=== PATIENT | female | born 1945 | race Caucasian/White ===

== ENCOUNTER → 2017-12-31 | Outpatient (CLI) | payer MEDICARE ==
--- NOTE | 2017-12-31 11:09 | MR ---
EXAMINATION TYPE: MR lumbar spine wo con DATE OF EXAM: 12/31/2017 COMPARISON: Plain film January 28, 2012 HISTORY: LBP TECHNIQUE: Multiplanar, multisequence images of the lumbar spine were acquired. L1-L2: Normal disc appearance without desiccation. No herniation, protrusion or disc bulging. No ca nal stenosis is present. Foramina are patent bilaterally. L2-L3: Broad-based posterior disc bulge causes mild anterior mass effect on the thecal sac. There is some facet arthropathy with hypertrophy of ligamentum flavum encroaching on the lateral recesses. No significant central canal stenosis or foraminal encroachment. L3-L4: Listhesis contributes to cause bilateral foraminal encroachment. Facet arthropathy with hypert rophy ligamentum flavum encroaches on the lateral recesses and results in a trefoil thecal sac, moder ate central canal stenosis. Small central posterior disc herniation causes slight deformity of the an terior thecal sac. L4-L5: Postop change noted, there is facet arthropathy, hypertrophic change causes some minimal poste rior impression on the thecal sac, there is no significant central canal stenosis or sizable disc her niation. Listhesis contributes to cause bilateral foraminal encroachment. Laminectomies have been per formed. L5-S1: Facet arthropathy changes present. No significant central canal stenosis or foraminal encroach ment, no sizable disc herniation. No paraspinal masses are identified. Conus medullaris has a normal appearance. Spinal curvature is a gain noted. Anterolisthesis grade 1 L3-4, L4-5 noted as on plain film. Loss of disc height and signal is present at these levels with associated spondylosis, endplate discogenic marrow signal change com patible with disc desiccation and degenerative disc disease. Posterior midline scar noted at the lowe r lumbar spine level. Tarlov cysts are noted over the sacral region. Cystic focus is associated with the right kidney measuring 3.2 cm at the lower pole with additional smaller cystic foci noted, exophy tic cystic focus in the midpole the left kidney measures 8 mm laterally. Lap band is incidentally not ed. IMPRESSION: Degenerative disc disease, postop changes, facet arthropathy, spinal stenosis greatest at L3-4 contri buted by listhesis. Scoliosis. Cystic foci associated with the kidneys. Additional findings above.
== END | disposition home or self-care (01) ==
LOC: RADMRIMAIN 09:16
PROVIDERS: ATTEND Family Medicine
DX: M48.061 Spinal stenosis, lumbar region without neurogenic claudication (principal); M43.16 Spondylolisthesis, lumbar region; M51.26 Other intervertebral disc displacement, lumbar region; M51.36 Other intervertebral disc degeneration, lumbar region; M46.96 Unspecified inflammatory spondylopathy, lumbar region; M47.816 Spondylosis without myelopathy or radiculopathy, lumbar region; M41.86 Other forms of scoliosis, lumbar region; M24.28 Disorder of ligament, vertebrae; Z98.890 Other specified postprocedural states
CPT/HCPCS: 72148

== ENCOUNTER → 2018-02-08 | Outpatient (CLI) | payer MEDICARE | LOC: BARWHC3 14:24 | PROVIDERS: ATTEND Surgery | DX: Z53.9 Procedure and treatment not carried out, unspecified reason (principal) ==

== ENCOUNTER → 2018-02-15 | Outpatient (CLI) | payer MEDICARE ==
[2018-02-15 14:27] VITALS: BP 139/82; PULSE 60; RESP 16; TEMP 97.6; BMI 25.6
--- NOTE | 2018-02-15 15:18 | P.HPBAR ---
Bariatric H&P - History & Physicial H&P Date: 02/15/18 History & Physicial: Visit/CC: band adj Patient initial contact: Initial weight: 59.562 kg Initial weight in pounds: 131.31 Height: 5 ft Initial BMI: 25.6 Last weight: Current weight: 59.562 kg Current weight in pounds: 131.31 Current BMI: 25.6 [place] body weight (based on NIH guidelines): 45.359 kg Excess body weight loss: 0.0% The patient is a 72 year-old F who presents for Bariatric Assessment. Patient presents today for lab band follow. She's had some trouble with dysphagia and vomiting. She is maintained approximately 130 pound weight loss over the last 17 years. Past Medical History Past Medical History: Diabetes Mellitus, Hyperlipidemia, Hypertension, Thyroid Disorder Additional Past Medical History / Comment(s): Type 2 DM (resolved), Hypothyroidism, IBS History of Any Multi-Drug Resistant Organisms: None Reported Past Surgical History: Appendectomy, Bariatric Surgery, Cholecystectomy, Tonsillectomy, Tubal Ligation Additional Past Surgical History / Comment(s): lap band placed 2000(??) Past Anesthesia/Blood Transfusion Reactions: No Reported Reaction Additional Past Anesthesia/Blood Transfusion Reaction / Comm: No blood transfusion to date Past Psychological History: Anxiety, Depression Smoking Status: Current every day smoker Past Alcohol Use History: None Reported Past Drug Use History: None Reported Additional Drug Use History / Comment(s): 1/2 pack /day x 60 years (off and on) Surgical - Exam Vital Signs Temp Pulse Resp BP 97.6 F 60 16 139/82 02/15/18 14:22 02/15/18 14:22 02/15/18 14:22 02/15/18 14:22 - General well developed, well nourished, no distress - Eyes PERRL - Respiratory normal expansion - Cardiovascular Rhythm: regular - Abdomen Incisional hernia related to open cholecystectomy scar in the right upper quadrant Abdomen: soft, non tender Bariatric Assessment & Plan Plan: Dysphagia. Patient had her LAP-BAND empty she had 2 mL remove her band. She' ll follow-up in one month. Bariatric Checklist Checklist: Plan: Checklist: EGD: 1. Hiatal hernia: 2. H. Pylori: HgbA1c: Vitamin D: Smoking: Current every day smoker Primary care physician referral: Psychiatry clearance: Cardiology clearance: Sleep study: Diet journal: VTE risk score: VTE risk level: Rehab needs at discharge:
== END | disposition home or self-care (01) ==
LOC: BARWHC3 13:19
PROVIDERS: ATTEND Surgery
DX: Z48.815 Encounter for surgical aftercare following surgery on the digestive system (principal); F17.200 Nicotine dependence, unspecified, uncomplicated; Z90.89 Acquired absence of other organs; Z90.49 Acquired absence of other specified parts of digestive tract; Z98.84 Bariatric surgery status
CPT/HCPCS: 99202

== ENCOUNTER → 2018-03-01 | Outpatient (CLI) | payer MEDICARE ==
[2018-03-01 14:27] VITALS: BP 148/71; PULSE 64; RESP 16; TEMP 97.9; BMI 26.4
--- NOTE | 2018-03-01 14:32 | P.HPBAR ---
Bariatric H&P - History & Physicial H&P Date: 03/01/18 History & Physicial: Visit/CC: band follow-up Patient initial contact: Initial weight: 59.562 kg Initial weight in pounds: 131.31 Height: 5 ft Initial BMI: 25.6 Last weight: Current weight: 61.433 kg Current weight in pounds: 135.44 Current BMI: 26.4 [place] body weight (based on NIH guidelines): 45.359 kg Excess body weight loss: The patient is a 72 year-old F who presents for Bariatric Assessment. Patient presents today for lap band follow-up. She had her LAP-BAND empty at the last visit. She states her GERD and dysphagia symptoms are significantly improved. Past Medical History Past Medical History: Diabetes Mellitus, Hyperlipidemia, Hypertension, Thyroid Disorder Additional Past Medical History / Comment(s): Type 2 DM (resolved), Hypothyroidism, IBS History of Any Multi-Drug Resistant Organisms: None Reported Past Surgical History: Appendectomy, Bariatric Surgery, Cholecystectomy, Tonsillectomy, Tubal Ligation Additional Past Surgical History / Comment(s): lap band placed 2000(??) Past Anesthesia/Blood Transfusion Reactions: No Reported Reaction Additional Past Anesthesia/Blood Transfusion Reaction / Comm: No blood transfusion to date Smoking Status: Current every day smoker Surgical - Exam Vital Signs Temp Pulse Resp BP 97.9 F 64 16 148/71 03/01/18 14:25 03/01/18 14:25 03/01/18 14:25 03/01/18 14:25 - General well developed, no distress - Abdomen Abdomen: soft, non tender Bariatric Assessment & Plan Plan: The patient will follow-up in one month. Her GERD is improved. We will not fill her LAP-BAND this visit. She is scheduled to have a ventral hernia repaired next month. She'll follow-up after her hernia repair. Bariatric Checklist Checklist: Plan: Checklist: EGD: 1. Hiatal hernia: 2. H. Pylori: HgbA1c: Vitamin D: Smoking: Current every day smoker Primary care physician referral: Psychiatry clearance: Cardiology clearance: Sleep study: Diet journal: VTE risk score: VTE risk level: Rehab needs at discharge:
== END | disposition home or self-care (01) ==
LOC: BARWHC3 13:18
PROVIDERS: ATTEND Surgery
DX: Z48.815 Encounter for surgical aftercare following surgery on the digestive system (principal); F17.200 Nicotine dependence, unspecified, uncomplicated; K21.9 Gastro-esophageal reflux disease without esophagitis; Z98.84 Bariatric surgery status
CPT/HCPCS: 99211

== ENCOUNTER → 2018-03-11 | Outpatient (CLI) | payer MEDICARE ==
[2018-03-11 10:49] LABS: Basophils # (A) 0.1 k/uL (0-0.2); Basophils % (A) 1 %; Eosinophils % (A) 1 %; HCT 39.8 % (34.0-46.0); HGB 12.6 gm/dL (11.4-16.0); Lymphocytes # (A) 2.1 k/uL (1.0-4.8); Lymphocytes % (A) 32 %; MCH 30.4 pg (25.0-35.0); MCHC 31.7 g/dL (31.0-37.0); MCV 95.8 fL (80.0-100.0); Mean Platelet Volume 6.7; Monocytes # (A) 0.5 k/uL (0-1.0); Monocytes % (A) 8 %; Neutrophils # (A) 3.8 k/uL (1.3-7.7); Neutrophils % (A) 58 %; Platelet Count 249 k/uL (150-450); RBC 4.16 m/uL (3.80-5.40); RDW 14.3 % (11.5-15.5); WBC 6.6 k/uL (3.8-10.6)
== END | disposition home or self-care (01) ==
LOC: LABPAT 10:03
PROVIDERS: ATTEND Surgery
DX: Z01.818 Encounter for other preprocedural examination (principal); Z01.812 Encounter for preprocedural laboratory examination; K43.2 Incisional hernia without obstruction or gangrene; D64.9 Anemia, unspecified; F17.200 Nicotine dependence, unspecified, uncomplicated
CPT/HCPCS: 85025; 86850; 86900; 86901; 93005

== ENCOUNTER 2018-03-17 06:46 | Day surgery (SDC) | payer MEDICARE ==
[2018-03-11 14:21] VITALS: BMI 23.8
[~2018-03-17 06:46] MED LIST: DEXAMETHASONE SOD PHOSPHATE 10 MG/ML 1 ML VIAL IV ONE; HEPARIN SODIUM,PORCINE 5,000 UNIT/ML 1 ML VIAL SQ ONE; LACTATED RINGERS 1,000 ML IV SCH; MIDAZOLAM 2 MG/2 ML VIAL IV PRN; ONDANSETRON 4 MG/2 ML VIAL IVP ONE; ceFAZolin IN SWFI 2 GM/20 ML SYRINGE IVP ONE; fentaNYL (PF) 50 MCG/ML 2 ML AMP IV PRN
[2018-03-17] MEDS ORDERED: LIDOCAINE 1% 20 ML VIAL (10MG/ML) FOR IV START INTRADERMA ONE (07:28)
[2018-03-17 07:29] VITALS: RESP 16
[2018-03-17] MEDS ORDERED: BUPIVACAINE (PF) 0.5% 30 ML VIAL SQ ONE ×3 (07:41→08:34)
--- NOTE | 2018-03-17 08:04 | P.GSHP ---
History of Present Illness H&P Date: 03/17/18 Chief Complaint: Incisional hernia This is a 72-year-old female who presents today for laparoscopic robotic- assisted repair of incisional hernia. Patient developed an incisional hernia located at her previous open cholecystectomy scar. She also has a questionable incisional hernia at her LAP-BAND port site. Past Medical History Past Medical History: Diabetes Mellitus, Hyperlipidemia, Hypertension, Memory Impairment, Musculoskeletal Disorder, Thyroid Disorder Additional Past Medical History / Comment(s): Type 2 DM (resolved), Hypothyroidism, IBSD, urinary incontinence History of Any Multi-Drug Resistant Organisms: None Reported Past Surgical History: Appendectomy, Bariatric Surgery, Cholecystectomy, Tonsillectomy, Tubal Ligation Additional Past Surgical History / Comment(s): lap band placed approx. 2000, cervical fusion, synovial cyst removed from spine Past Anesthesia/Blood Transfusion Reactions: No Reported Reaction Additional Past Anesthesia/Blood Transfusion Reaction / Comment(s): No blood transfusion to date Smoking Status: Current every day smoker - Past Family History Father Family Medical History: Cancer Medications and Allergies Home Medications Medication Instructions Recorded Confirmed Type Aspirin EC [Ecotrin] 325 mg PO DAILY 07/28/16 03/17/18 History Dicyclomine [Bentyl] 10 mg PO TID 02/16/18 03/17/18 History FLUoxetine HCL [Sarafem] 60 mg PO DAILY 02/16/18 03/17/18 History HYDROcodone/APAP 7.5-325MG [[place] 7.5 mg PO QID 02/16/18 03/17/18 History 7.5-325] Levothyroxine Sodium [Synthroid] 25 mcg PO DAILY 02/16/18 03/17/18 History Loratadine [Claritin] 10 mg PO DAILY 02/16/18 03/17/18 History Losartan Potassium [Cozaar] 50 mg PO DAILY 02/16/18 03/17/18 History Memantine [Namenda] 10 mg PO DAILY 02/16/18 03/17/18 History OLANZapine [ZyPREXA] 10 mg PO DAILY 02/16/18 03/17/18 History Pravastatin Sodium [Pravachol] 40 mg PO HS 02/16/18 03/17/18 History busPIRone HCl [Buspar] 5 mg PO DAILY 02/16/18 03/17/18 History cloNIDine HCL [Catapres] 0.1 mg PO DAILY 02/16/18 03/17/18 History Potassium Chloride [Klor-Con 10] 10 meq PO BID 03/11/18 03/17/18 History Allergies Allergy/AdvReac Type Severity Reaction Status Date / Time No Known Allergies Allergy Verified 03/17/18 07:10 Surgical - Exam Vital Signs Temp Pulse Resp BP Pulse Ox 97.5 F L 62 16 180/83 96 03/17/18 07:22 03/17/18 07:22 03/17/18 07:22 03/17/18 07:22 03/17/18 07:22 - General well developed, no distress - Eyes PERRL - ENT normal pinna - Neck no masses - Respiratory normal expansion - Cardiovascular Rhythm: regular - Abdomen Abdomen: soft, non tender Hernia: incisional (5 cm incision hernia located at the right subcostal incision , a small incisional hernia at the LAP-BAND port site) Assessment and Plan Assessment: Incisional hernia. We'll perform laparoscopic robotic-assisted repair.
[2018-03-17] MEDS ORDERED: fentaNYL (PF) 50 MCG/ML 2 ML AMP ONE (08:06)
[2018-03-17] MEDS ORDERED: GLYCOPYRROLATE 0.2 MG/ML 2 ML VIAL ONE (08:06)
[2018-03-17] MEDS ORDERED: NEOSTIGMINE 1 MG/ML 10 ML VIAL ONE (08:06)
[2018-03-17] MEDS ORDERED: MIDAZOLAM 2 MG/2 ML VIAL ONE (08:06)
[2018-03-17] MEDS ORDERED: SUCCINYLCHOLINE CHLORIDE 100 MG/5 ML SYR IV ONE (08:06)
[2018-03-17] MEDS ORDERED: LIDOCAINE 1% INJ 10MG/ML (20 ML MDV) ONE (08:06)
[2018-03-17] MEDS ORDERED: ROCURONIUM BROMIDE 10 MG/ML 10 ML VIAL IV ONE (08:06)
[2018-03-17] MEDS ORDERED: PROPOFOL 10 MG/ML 20 ML VIAL IV ONE (08:06)
[2018-03-17 10:05] VITALS: TEMP 97
[2018-03-17] MEDS: HYDROmorphone 1 MG/ML 1 ML SYRINGE IVP ONE ×4 (10:10→10:58)
--- NOTE | 2018-03-17 10:16 | P.OP ---
Date of Procedure: 03/17/18 Preoperative Diagnosis: Incisional hernia Postoperative Diagnosis: Adhesions Incisional hernia Incarcerated incisional hernia Procedure(s) Performed: Laparoscopic lysis of adhesions Laparoscopic robotic system repair of incisional hernia Laparoscopic robotic-assisted repair of incarcerated incisional hernia Partial omentectomy Anesthesia: GETA Pathology: other (Incarcerated omentum) Condition: stable Disposition: PACU Description of Procedure: The patient was placed on the operating table in the supine position. He received general anesthesia. His abdomen was prepped and draped usual fashion. Using a 5 mm optical trocar under direct visualization the peritoneal cavity was entered in the infraumbilical position.. The abdomen was then insufflated. The laparoscope was placed back into the perineal cavity. Next a 8 mm robotic trocar was placed in the left lower quadrant and a 12 mm robotic trocar was placed in the midline infraumbilical position. Another 8 mm trocar was placed in the right lateral position.. The incisional hernia was visualized. This hernias located in the right subcostal position. The patient had another incarcerated hernia located in the left lateral abdominal wall related to her LAP-BAND port site. Using hook cautery the adhesions in the right upper quadrant hernia were lysed. Using hook cautery the peritoneum over the incisional hernia was excised. The fascial opening was repaired using 0V LOC suture. Next a piece of 11 cm round ventral light ST mesh was placed into the. Cavity and secured with 2 OV lock suture. Next, the incarcerated omentum was withdrawn from the left lateral incarcerated incisional hernia. The neck of the hernia was slightly opened using hook cautery. And the incarcerated omentum was withdrawn. The fascial defect was then closed using oh strata fixed suture. The patient was undocked the robot. The needles were retrieved. The incarcerated omentum was withdrawn. The fascia of the 12 mm trocar site was closed with 0 Ethibond suture. Skin was closed interrupted 3-0 Monocryl suture. Dermabond dressings was applied. Patient tolerated procedure well and was sent to recovery room stable condition.
[2018-03-17] MEDS ORDERED: LACTATED RINGERS 1,000 ML IV ONE ×2 (10:27)
[2018-03-17] MEDS ORDERED: KETOROLAC 30 MG/ML 1 ML VIAL IVP ONE (10:36)
[2018-03-17] MEDS ORDERED: ONDANSETRON 4 MG/2 ML VIAL IVP ONE (10:36)
[2018-03-17] MEDS ORDERED: HYDROcodone/APAP 7.5-325MG 1 EACH TAB PO ONE (11:47)
--- NOTE | 2018-03-17 13:06 | P.ONQ ---
Anesthesiology Proc Note - PNB - Peripheral Nerve Block Performed Bilateral Rectus Abdominis Single Time Out Performed: Yes (1003) Procedure Start Time: 10:03 Procedure Stop Time: 10:10 Indication: Acute Post-Operative Pain, Dx/Pain Location (Acute abdominal pain), Requested by physician Sedation Type: Sedate with meaningful contact maintained Preparation: Sterile Prep Position: Supine Catheter: None Needle Types: On-Q Needle Size: 100mm (4") Needle Gauge: 21 Injectate: 0.5% Ropivacaine (see comment for volume) (15ml 0.5% Ropivacaine each side) Blood Aspirated: No Pain Paresthesia on Injection Noted: No
[2018-03-17 13:15] VITALS: BP 152/70; PULSE 85
== END 2018-03-17 13:59 | disposition home or self-care (01) ==
LOC: OR 06:46
PROVIDERS: ATTEND Surgery
DX: K43.0 Incisional hernia with obstruction, without gangrene (principal); K66.0 Peritoneal adhesions (postprocedural) (postinfection); I10 Essential (primary) hypertension; E78.5 Hyperlipidemia, unspecified; Z98.84 Bariatric surgery status; K58.0 Irritable bowel syndrome with diarrhea; E03.9 Hypothyroidism, unspecified; F17.200 Nicotine dependence, unspecified, uncomplicated; R41.3 Other amnesia; Z79.82 Long term (current) use of aspirin; Z79.899 Other long term (current) drug therapy
CPT/HCPCS: 88305; 49655; C1781; J2250; J1644; J1100; J2710; J2405; J2001; J3010; J1885; J1170; J0330; J2704; J0690; 86850; 86900; 86901

== ENCOUNTER → 2018-04-12 | Outpatient (CLI) | payer MEDICARE ==
--- NOTE | 2018-04-12 14:50 | P.HPBAR ---
Bariatric H&P - History & Physicial H&P Date: 04/12/18 History & Physicial: Visit/CC: Patient initial contact: Initial weight: 59.562 kg Initial weight in pounds: Height: Initial BMI: Last weight: Current weight: 133 Current weight in pounds: 135 Current BMI: [place] body weight (based on NIH guidelines): Excess body weight loss: The patient is a 72 year-old F who presents for Bariatric Assessment. Patient presents today for lab band follow up. She states she feels well. She is not requesting a fill. Past Medical History Past Medical History: Diabetes Mellitus, Hyperlipidemia, Hypertension, Thyroid Disorder Additional Past Medical History / Comment(s): Type 2 DM (resolved), Hypothyroidism, IBS History of Any Multi-Drug Resistant Organisms: None Reported Past Surgical History: Appendectomy, Bariatric Surgery, Cholecystectomy, Tonsillectomy, Tubal Ligation Additional Past Surgical History / Comment(s): lap band placed 2000(??) Past Anesthesia/Blood Transfusion Reactions: No Reported Reaction Additional Past Anesthesia/Blood Transfusion Reaction / Comm: No blood transfusion to date Smoking Status: Current every day smoker Surgical - Exam - General well developed, no distress - Eyes PERRL - ENT normal pinna, normal mucosa - Respiratory normal expansion - Abdomen Abdomen: soft, non tender Bariatric Assessment & Plan Plan: Status post lap band procedure. Patient had excellent weight loss. Her GERD is minimal will be observed. She'll follow-up in one month. Bariatric Checklist Checklist: Plan: Checklist: EGD: 1. Hiatal hernia: 2. H. Pylori: HgbA1c: Vitamin D: Smoking: Current every day smoker Primary care physician referral: Psychiatry clearance: Cardiology clearance: Sleep study: Diet journal: VTE risk score: VTE risk level: Rehab needs at discharge:
[2018-04-12 15:35] VITALS: BP 152/84; PULSE 71; TEMP 98.1; BMI 26.1
== END | disposition home or self-care (01) ==
LOC: BARWHC3 13:21
PROVIDERS: ATTEND Surgery
DX: Z48.815 Encounter for surgical aftercare following surgery on the digestive system (principal); K21.9 Gastro-esophageal reflux disease without esophagitis; F17.200 Nicotine dependence, unspecified, uncomplicated; Z98.84 Bariatric surgery status
CPT/HCPCS: 99211

== ENCOUNTER → 2018-09-02 | Outpatient (CLI) | payer MEDICARE ==
[2018-09-03 04:28] LABS: Gliadin AB IgA, Unit <0.2 U/mL
== END | disposition home or self-care (01) ==
LOC: LABWHC1 15:51
PROVIDERS: ATTEND Internal Medicine Gastroenterology
DX: R19.7 Diarrhea, unspecified (principal)
CPT/HCPCS: 36415; 83516

== ENCOUNTER 2018-09-19 14:55 | Emergency (ER) | payer MEDICARE ==
[2018-09-19 15:07] VITALS: RESP 18; TEMP 98.4
[2018-09-19] MEDS ORDERED: cloNIDine HCL 0.1 MG TAB PO STA (15:25)
[2018-09-19] MEDS ORDERED: valACYclovir HCL 1,000 MG TABLET PO STA (15:58)
--- NOTE | 2018-09-19 15:58 | ED ---
General Adult HPI - General Chief complaint: Chest Pain Stated complaint: Neck/arm pain Time Seen by Provider: 09/19/18 15:00 Source: patient, RN notes reviewed Mode of arrival: ambulatory Limitations: no limitations - History of Present Illness Initial comments: This is a 73-year-old female who presents emergency Department complaining of a 5 day history of pain on the left side of her neck shoulder and then down her arm. Patient states today she woke up and there was a rash on her neck shoulder and arm. Rest is clumped vesicles on erythematous base. Patient states just lightly touching those areas that are erythematous is painful. Patient states there is no similar rash anywhere else on her body. Patient denies any anterior chest pain or heaviness. Patient denies any difficulty breathing first breath per patient denies any diaphoretic episodes. Patient denies any nausea patient patient denies abdominal pain. Patient denies any palpitations. Patient denies lightheadedness dizziness or near syncopal episode. Patient denies any recent fever chills or cough. - Related Data Home Medications Medication Instructions Recorded Confirmed Aspirin EC [Ecotrin] 325 mg PO DAILY 07/28/16 09/19/18 FLUoxetine HCL [Sarafem] 60 mg PO TID 02/16/18 09/19/18 HYDROcodone/APAP 7.5-325MG [[place] 7.5 mg PO QID PRN 02/16/18 09/19/18 7.5-325] Levothyroxine Sodium [Synthroid] 25 mcg PO DAILY 02/16/18 09/19/18 Losartan Potassium [Cozaar] 50 mg PO DAILY 02/16/18 09/19/18 OLANZapine [ZyPREXA] 10 mg PO DAILY 02/16/18 09/19/18 Pravastatin Sodium [Pravachol] 40 mg PO HS 02/16/18 09/19/18 busPIRone HCl [Buspar] 10 mg PO BID 02/16/18 09/19/18 cloNIDine HCL [Catapres] 0.1 mg PO DAILY 02/16/18 09/19/18 Potassium Chloride [Klor-Con 10] 10 meq PO BID 03/11/18 09/19/18 Cholecalciferol [Vitamin D3] 1,000 unit PO DAILY 09/19/18 09/19/18 Loperamide [Imodium] 2 mg PO Q48H 09/19/18 09/19/18 Mirabegron [Myrbetriq] 50 mg PO DAILY 09/19/18 09/19/18 Previous Rx's Medication Instructions Recorded predniSONE 20 mg PO BID 5 Days tab 09/19/18 valACYclovir HCL [Valacyclovir] 1,000 mg PO Q8HR 7 Days tab 09/19/18 Allergies Allergy/AdvReac Type Severity Reaction Status Date / Time No Known Allergies Allergy Verified 09/19/18 15:58 Review of Systems ROS Statement: Those systems with pertinent positive or pertinent negative responses have been documented in the HPI. ROS Other: All systems not noted in ROS Statement are negative. Past Medical History Past Medical History: Diabetes Mellitus, Hyperlipidemia, Hypertension, Thyroid Disorder Additional Past Medical History / Comment(s): Type 2 DM (resolved), Hypothyroidism, IBS History of Any Multi-Drug Resistant Organisms: None Reported Past Surgical History: Appendectomy, Bariatric Surgery, Cholecystectomy, Tonsillectomy, Tubal Ligation Additional Past Surgical History / Comment(s): lap band placed 2000(??) Past Anesthesia/Blood Transfusion Reactions: No Reported Reaction Additional Past Anesthesia/Blood Transfusion Reaction / Comment(s): No blood transfusion to date Past Psychological History: Anxiety, Depression Smoking Status: Current every day smoker Past Alcohol Use History: None Reported Past Drug Use History: None Reported General Exam - General Exam Comments Initial Comments: GENERAL: Patient is well-developed and well-nourished. Patient is nontoxic and well- hydrated and is in mild distress. ENT: Neck is soft and supple. No significant lymphadenopathy is noted. Oropharynx is clear. Moist mucous membranes. Neck has full range of motion without eliciting any pain. There is no thyroid enlargement and no masses were felt. EYES: The sclera were anicteric and conjunctiva were pink and moist. Extraocular movements were intact and pupils were equal round and reactive to light. Eyelids were unremarkable. PULMONARY: Unlabored respirations. Good breath sounds bilaterally. No audible rales rhonchi or wheezing was noted. CARDIOVASCULAR: There is a regular rate and rhythm without any murmurs gallops or rubs. ABDOMEN: Soft and nontender with normal bowel sounds. No palpable organomegaly was noted. There is no palpable pulsatile mass. SKIN: Patient has erythematous patches with clumps of vesicles on the patient's neck on the left side on the shoulder and arm. Rash is consistent with shingles NEUROLOGIC: Patient is alert and oriented x3. Cranial nerves II through XII are grossly intact. Motor and sensory are also intact. Normal speech, volume and content. Symmetrical smile. MUSCULOSKELETAL: Normal extremities with adequate strength and full range of motion. No lower extremity swelling or edema. No calf tenderness. LYMPHATICS: No significant lymphadenopathy is noted PSYCHIATRIC: Normal psychiatric evaluation. Limitations: no limitations Course Vital Signs 09/19/18 09/19/18 09/19/18 15:04 15:30 16:00 Temperature 98.4 F Pulse Rate 74 64 62 Respiratory 18 18 18 Rate Blood Pressure 158/95 181/100 181/82 O2 Sat by Pulse 98 98 Oximetry Medical Decision Making - Medical Decision Making EKG shows normal sinus rhythm at [address] interval 190 QRS is 92 QT interval is 426 QTC is 443. Patient's EKG is unchanged from previous EKGs. Disposition Clinical Impression: Shingles Disposition: [facility] Instructions: Shingles (ED) Prescriptions: predniSONE 20 mg PO BID 5 Days tab valACYclovir HCL [Valacyclovir] 1,000 mg PO Q8HR 7 Days tab Referrals: Mehnaz Beck DO [Primary Care Provider] - 1-2 days Time of Disposition: 16:09
[2018-09-19 16:00] VITALS: BP 181/82; PULSE 62
== END 2018-09-19 16:20 ==
LOC: EC 14:55
DX: B02.9 Zoster without complications (principal); R07.9 Chest pain, unspecified; E78.5 Hyperlipidemia, unspecified; I10 Essential (primary) hypertension; E03.9 Hypothyroidism, unspecified; F41.9 Anxiety disorder, unspecified; F32.9 Major depressive disorder, single episode, unspecified; F17.200 Nicotine dependence, unspecified, uncomplicated; Z79.82 Long term (current) use of aspirin; Z79.890 Hormone replacement therapy; Z79.899 Other long term (current) drug therapy
CPT/HCPCS: 93005; 99285

== ENCOUNTER 2018-09-25 18:12 | Emergency (ER) | payer MEDICARE ==
[2018-09-25 18:27] VITALS: TEMP 97.8
[2018-09-25] MEDS ORDERED: HYDROmorphone 0.5 MG/0.5 ML SYRINGE IVP STA ×2 (18:39→21:00)
[2018-09-25] MEDS ORDERED: GABAPENTIN 300 MG CAP PO STA (18:39)
--- NOTE | 2018-09-25 18:42 | ED ---
General Adult HPI - General Chief complaint: Skin/Abscess/Foreign Body Stated complaint: weakness Time Seen by Provider: 09/25/18 18:16 Source: patient, EMS Mode of arrival: EMS Limitations: no limitations - History of Present Illness Initial comments: Patient is a 73-year-old female presenting for pain secondary to shingles. She states that the rash on her left shoulder and left breast appeared about 2 weeks ago when she was diagnosed one week ago and started on acyclovir as well as prednisone. However, over the last couple days, the pain has still remained and she has chronic pain secondary to back issues and her [place] 7.5 or not helping. She states that the pain radiates up to the neck as well as down the left arm. She denies any chest pain or shortness breath as well as fevers or chills. - Related Data Home Medications Medication Instructions Recorded Confirmed Aspirin EC [Ecotrin] 325 mg PO DAILY 07/28/16 09/25/18 FLUoxetine HCL [Sarafem] 60 mg PO TID 02/16/18 09/25/18 HYDROcodone/APAP 7.5-325MG [[place] 7.5 mg PO QID PRN 02/16/18 09/25/18 7.5-325] Levothyroxine Sodium [Synthroid] 25 mcg PO DAILY 02/16/18 09/25/18 Losartan Potassium [Cozaar] 50 mg PO DAILY 02/16/18 09/25/18 OLANZapine [ZyPREXA] 10 mg PO DAILY 02/16/18 09/25/18 Pravastatin Sodium [Pravachol] 40 mg PO HS 02/16/18 09/25/18 busPIRone HCl [Buspar] 10 mg PO BID 02/16/18 09/25/18 cloNIDine HCL [Catapres] 0.1 mg PO DAILY 02/16/18 09/25/18 Potassium Chloride [Klor-Con 10] 10 meq PO BID 03/11/18 09/25/18 Cholecalciferol [Vitamin D3] 1,000 unit PO DAILY 09/19/18 09/25/18 Loperamide [Imodium] 2 mg PO Q48H PRN 09/19/18 09/25/18 Mirabegron [Myrbetriq] 50 mg PO DAILY 09/19/18 09/25/18 Previous Rx's Medication Instructions Recorded valACYclovir HCL [Valacyclovir] 1,000 mg PO Q8HR 7 Days tab 09/19/18 Cephalexin [Keflex] 500 mg PO Q12HR 7 Days #14 cap 09/25/18 Gabapentin [Neurontin] 300 mg PO DIRECTED #23 cap 09/25/18 HYDROcodone/APAP 10-325MG [[place] 1 tab PO Q6HR PRN 3 Days #12 tab 09/25/18 10-325] Lidocaine 5% Oint [Xylocaine 5% 1 applic TOPICAL DAILY PRN #1 tube 09/25/18 Oint] Allergies Allergy/AdvReac Type Severity Reaction Status Date / Time No Known Allergies Allergy Verified 09/25/18 18:27 Review of Systems ROS Statement: Those systems with pertinent positive or pertinent negative responses have been documented in the HPI. Constitutional: Negative for chills, fatigue and fever. HENT: Negative for congestion. Respiratory: Negative for chest tightness, shortness of breath and wheezing. Negative for cough Cardiovascular: Negative for chest pain and palpitations. Gastrointestinal: Negative for abdominal pain. Negative for abdominal distention , diarrhea, nausea and vomiting. Genitourinary: Negative for dysuria. Musculoskeletal: Negative for back pain, neck pain and neck stiffness. Skin: Positive for rash and color change Neurological: Negative for dizziness, speech difficulty, weakness and light- headedness. Psychiatric/Behavioral: Negative for agitation and confusion. Negative for anxiety ROS Other: All systems not noted in ROS Statement are negative. Past Medical History Past Medical History: Diabetes Mellitus, Hyperlipidemia, Hypertension, Thyroid Disorder Additional Past Medical History / Comment(s): Type 2 DM (resolved), Hypothyroidism, IBS History of Any Multi-Drug Resistant Organisms: None Reported Past Surgical History: Appendectomy, Bariatric Surgery, Cholecystectomy, Hernia Repair, Tonsillectomy, Tubal Ligation Additional Past Surgical History / Comment(s): lap band placed 2000(??) Past Anesthesia/Blood Transfusion Reactions: No Reported Reaction Additional Past Anesthesia/Blood Transfusion Reaction / Comment(s): No blood transfusion to date Past Psychological History: Anxiety, Depression Smoking Status: Current every day smoker Past Alcohol Use History: None Reported Past Drug Use History: None Reported General Exam - General Exam Comments Initial Comments: Constitutional: Pt is oriented to person, place, and time. Pt appears well- developed and well-nourished. No distress. HENT: Head: Normocephalic and atraumatic. Eyes: EOM are normal. Neck: Normal range of motion. Neck supple. Cardiovascular: Normal rate, regular rhythm, S1 normal, S2 normal and normal heart sounds. Exam reveals no gallop and no friction rub. No murmur heard. Pulmonary/Chest: Effort normal and breath sounds normal. No tachypnea and no bradypnea. No respiratory distress. No wheezes or rales noted. Abdominal: Soft. Bowel sounds are normal. Pt exhibits no shifting dullness, no distension, no pulsatile liver, no fluid wave, no abdominal bruit and no ascites. There is no tenderness. There is no rigidity, no rebound, no guarding, no tenderness at McBurney's point and negative Kennedy's sign. Musculoskeletal: Normal range of motion. Neurological: Pt is alert and oriented to person, place, and time. No cranial nerve deficit. Skin: Skin is warm and dry. Pt is not diaphoretic. No pallor. Erythematous macular lesions on the left arm and left breast consistent with herpes zoster. Psychiatric: Pt has a normal mood and affect. Pt behavior is normal. Thought content normal. Limitations: no limitations Course Vital Signs 09/25/18 09/25/18 09/25/18 18:22 19:24 22:26 Temperature 97.8 F 97.8 F Pulse Rate 66 97 72 Respiratory 18 17 19 Rate Blood Pressure 190/81 187/67 184/91 O2 Sat by Pulse 97 97 96 Oximetry - Reevaluation(s) Reevaluation #1: 09/25/18 20:48 Patient continues to have pain even though multiple doses of analgesics have been given. There is no suspicion of fractures process as there has been no fever and there is no skin findings consistent with cellulitis. Medical Decision Making - Medical Decision Making The patient required multiple doses of analgesia but had no significant relief. [place] Thursday, laboratory studies were completed to evaluate for possible superimposed cellulitis but these only showed a mild leukocytosis of just greater than 12 and this is thought to be secondary to the recent steroid use. Additionally, lactic acid was not elevated and there was no evidence of fever or tachycardia here in the emergency department. Chest x-ray was also performed and noted to be negative. Over 30 minutes was spent with the patient as well as the patient's family member as there was concern about high blood pressure. Because there is no evidence of end organ dysfunction or hypertensive emergency, blood pressure was not emergently treated and it was explained that treating blood pressure in this situation could significantly dropped the patient's blood pressure causing her to syncopized and that there was more harm possible been good in this particular situation. Additionally, is advised that the patient's pain is likely secondary to postherpetic neuralgia and it was recommended that she followed up very closely with her PCP and she was given a prescription for gabapentin. On repeat physical exams, there was no tenderness to palpation in the generalized vicinity and throughout the stay, the patient appeared very comfortable.Explained all labs and diagnostic test results and that we will discharge the patient home and patient is to follow up with PCP in 1-2 days and return to the ED if symptoms worsen. Pt is agreeable to plan. - Lab Data Result diagrams: 09/25/18 20:59 09/25/18 20:59 Lab Results 09/25/18 09/25/18 09/25/18 Range/Units 20:59 20:59 21:00 WBC 12.9 H (3.8-10.6) k/uL RBC 4.27 (3.80-5.40) m/uL Hgb 12.7 (11.4-16.0) gm/dL Hct 39.9 (34.0-46.0) % MCV 93.4 (80.0-100.0) fL MCH 29.8 (25.0-35.0) pg MCHC 31.9 (31.0-37.0) g/dL RDW 13.9 (11.5-15.5) % Plt Count 306 (150-450) k/uL Neutrophils % 74 % Lymphocytes % 19 % Monocytes % 4 % Eosinophils % 1 % Basophils % 0 % Neutrophils # 9.6 H (1.3-7.7) k/uL Lymphocytes # 2.4 (1.0-4.8) k/uL Monocytes # 0.5 (0-1.0) k/uL Eosinophils # 0.1 (0-0.7) k/uL Basophils # 0.0 (0-0.2) k/uL Sodium 133 L (137-145) mmol/L Potassium 5.0 (3.5-5.1) mmol/L Chloride 103 (98-107) mmol/L Carbon Dioxide 23 (22-30) mmol/L Anion Gap 7 mmol/L BUN 26 H (7-17) mg/dL Creatinine 0.94 (0.52-1.04) mg/dL Est GFR (CKD-EPI)AfAm 69 (>60 ml/min/1.73 sqM) Est GFR (CKD-EPI)NonAf 60 (>60 ml/min/1.73 sqM) Glucose 100 H (74-99) mg/dL Plasma Lactic Acid Mushtaq 0.8 (0.7-2.0) mmol/L Calcium 9.4 (8.4-10.2) mg/dL Total Bilirubin 0.5 (0.2-1.3) mg/dL AST 30 (14-36) U/L ALT 24 (9-52) U/L Alkaline Phosphatase 65 (38-126) U/L Total Protein 5.9 L (6.3-8.2) g/dL Albumin 3.2 L (3.5-5.0) g/dL Disposition Clinical Impression: Postherpetic neuralgia Disposition: HOME SELF-CARE Condition: Good Instructions: [place] (ED) Prescriptions: Cephalexin [Keflex] 500 mg PO Q12HR 7 Days #14 cap Gabapentin [Neurontin] 300 mg PO DIRECTED #23 cap HYDROcodone/APAP 10-325MG [[place] 10-325] 1 tab PO Q6HR PRN 3 Days #12 tab PRN Reason: Pain Lidocaine 5% Oint [Xylocaine 5% Oint] 1 applic TOPICAL DAILY PRN #1 tube PRN Reason: Pain Is patient prescribed a controlled substance at d/c from ED?: Yes When asked, does pt state using other controlled substances?: Yes If prescribed controlled substance>3 days was MAPS reviewed?: Prescribed <3 Days If opioid is for acute pain is fill amount 7 days or less?: Yes If Rx opioid, was Start Talking consent form obtained?: Yes Referrals: Mehnaz Beck DO [Primary Care Provider] - 1-2 days Time of Disposition: 22:33
[2018-09-25] MEDS ORDERED: methylPREDNISolone SOD SUCCI 125 MG/2 ML VIAL IV STA (19:52)
[2018-09-25] MEDS ORDERED: KETOROLAC 30 MG/ML 1 ML VIAL IVP STA (19:52)
[2018-09-25] MEDS ORDERED: MORPHINE SULFATE 4 MG/ML SYRINGE IVP STA (19:52)
[2018-09-25] MEDS ORDERED: CAPSAICIN 0.025% CREAM 60 GM TUBE TOPICAL STA (20:46)
[2018-09-25 21:27] LABS: Basophils % (A) 0 %; Eosinophils # (A) 0.1 k/uL (0-0.7); Eosinophils % (A) 1 %; HCT 39.9 % (34.0-46.0); HGB 12.7 gm/dL (11.4-16.0); Lymphocytes # (A) 2.4 k/uL (1.0-4.8); Lymphocytes % (A) 19 %; MCH 29.8 pg (25.0-35.0); MCHC 31.9 g/dL (31.0-37.0); MCV 93.4 fL (80.0-100.0); Monocytes # (A) 0.5 k/uL (0-1.0); Monocytes % (A) 4 %; Neutrophils # (A) 9.6 k/uL (1.3-7.7); Neutrophils % (A) 74 %; Platelet Count 306 k/uL (150-450); RBC 4.27 m/uL (3.80-5.40); RDW 13.9 % (11.5-15.5); WBC 12.9 k/uL (3.8-10.6)
--- NOTE | 2018-09-25 21:35 | XR ---
EXAMINATION TYPE: XR chest 2V DATE OF EXAM: 09/25/2018 COMPARISON: NONE HISTORY: Weakness and shingles TECHNIQUE: Frontal and lateral views of the chest are obtained. FINDINGS: There is no focal air space opacity, pleural effusion, or pneumothorax seen. The cardiac silhouette size is within normal limits. The osseous structures are intact. Anterior cervical fusio n hardware is partially visualized. IMPRESSION: No acute cardiopulmonary process.
[2018-09-25 21:37] LABS: Albumin 3.2 g/dL (3.5-5.0); Calcium 9.4 mg/dL (8.4-10.2); Total Bilirubin 0.5 mg/dL (0.2-1.3); Total Protein 5.9 g/dL (6.3-8.2)
[2018-09-25 22:28] VITALS: BP 184/91; PULSE 72; RESP 19
== END 2018-09-25 22:41 | disposition home or self-care (01) ==
LOC: EC 18:12
DX: B02.29 Other postherpetic nervous system involvement (principal); D72.829 Elevated white blood cell count, unspecified; G89.29 Other chronic pain; E78.5 Hyperlipidemia, unspecified; I10 Essential (primary) hypertension; E03.9 Hypothyroidism, unspecified; F32.9 Major depressive disorder, single episode, unspecified; F41.9 Anxiety disorder, unspecified; F17.200 Nicotine dependence, unspecified, uncomplicated; Z79.82 Long term (current) use of aspirin; Z79.899 Other long term (current) drug therapy
CPT/HCPCS: 36415; 80053; 83605; 85025; 71046; 99285; 96374; 96375 ×3; 96376; J2270; J2930; J1885; J1170

== ENCOUNTER 2018-10-30 20:42 | Inpatient (IN) | payer MEDICARE ==
[2018-10-30] MEDS ORDERED: HYDROmorphone 0.5 MG/0.5 ML SYRINGE IVP STA (21:17)
[2018-10-30] MEDS ORDERED: ONDANSETRON 4 MG/2 ML VIAL IVP STA (21:17)
[2018-10-30] MEDS ORDERED: SODIUM CHLORIDE 0.9% 500 ML 500 ML IV STA (21:17)
--- NOTE | 2018-10-30 21:25 | ED ---
Abdominal Pain HPI - General Chief Complaint: Abdominal Pain Stated Complaint: abdominal issues Time Seen by Provider: 10/30/18 20:52 Source: patient Mode of arrival: ambulatory Limitations: no limitations - History of Present Illness Initial Comments: 73-year-old female patient presents to the emergency department today for evaluation of abdominal pain and vomiting. Patient states that she had hernia surgery in March. Patient states she was doing well until about 4 weeks ago until she started having intermittent left lower quadrant abdominal pain. Patient states that the pain has been mild up until the last couple of days where it has worsened in intensity. Patient has had numerous abdominal surgeries in the past including hernia surgery, lap band, cholecystectomy, and appendectomy. She states around her lap band port site she can feel an additional lump to the area. States it is uncomfortable. She denies any constipation or diarrhea. Denies any hematuria, dysuria, urinary frequency, urinary urgency. She has not had any fevers or chills. Denies any radiation of the pain into her back. Patient denies any recent rash, shortness breath, chest pain, diarrhea, constipation, back pain, numbness, tingling, dizziness, weakness, headache, visual changes, or any other complaints. - Related Data Home Medications Medication Instructions Recorded Confirmed Aspirin EC [Ecotrin] 325 mg PO DAILY 07/28/16 09/25/18 FLUoxetine HCL [Sarafem] 60 mg PO TID 02/16/18 09/25/18 HYDROcodone/APAP 7.5-325MG [[place] 7.5 mg PO QID PRN 02/16/18 09/25/18 7.5-325] Levothyroxine Sodium [Synthroid] 25 mcg PO DAILY 02/16/18 09/25/18 Losartan Potassium [Cozaar] 50 mg PO DAILY 02/16/18 09/25/18 OLANZapine [ZyPREXA] 10 mg PO DAILY 02/16/18 09/25/18 Pravastatin Sodium [Pravachol] 40 mg PO HS 02/16/18 09/25/18 busPIRone HCl [Buspar] 10 mg PO BID 02/16/18 09/25/18 cloNIDine HCL [Catapres] 0.1 mg PO DAILY 02/16/18 09/25/18 Potassium Chloride [Klor-Con 10] 10 meq PO BID 03/11/18 09/25/18 Cholecalciferol [Vitamin D3] 1,000 unit PO DAILY 09/19/18 09/25/18 Loperamide [Imodium] 2 mg PO Q48H PRN 09/19/18 09/25/18 Mirabegron [Myrbetriq] 50 mg PO DAILY 09/19/18 09/25/18 Previous Rx's Medication Instructions Recorded valACYclovir HCL [Valacyclovir] 1,000 mg PO Q8HR 7 Days tab 09/19/18 Cephalexin [Keflex] 500 mg PO Q12HR 7 Days #14 cap 09/25/18 Gabapentin [Neurontin] 300 mg PO DIRECTED #23 cap 09/25/18 HYDROcodone/APAP 10-325MG [[place] 1 tab PO Q6HR PRN 3 Days #12 tab 09/25/18 10-325] Lidocaine 5% Oint [Xylocaine 5% 1 applic TOPICAL DAILY PRN #1 tube 09/25/18 Oint] Allergies Allergy/AdvReac Type Severity Reaction Status Date / Time No Known Allergies Allergy Verified 09/25/18 18:27 Review of Systems ROS Statement: Those systems with pertinent positive or pertinent negative responses have been documented in the HPI. ROS Other: All systems not noted in ROS Statement are negative. Past Medical History Past Medical History: Diabetes Mellitus, Hyperlipidemia, Hypertension, Thyroid Disorder Additional Past Medical History / Comment(s): Type 2 DM (resolved), Hypothyroidism, IBS History of Any Multi-Drug Resistant Organisms: None Reported Past Surgical History: Appendectomy, Bariatric Surgery, Cholecystectomy, Hernia Repair, Tonsillectomy, Tubal Ligation Additional Past Surgical History / Comment(s): lap band placed 2000(??) Past Anesthesia/Blood Transfusion Reactions: No Reported Reaction Additional Past Anesthesia/Blood Transfusion Reaction / Comment(s): No blood transfusion to date Past Psychological History: Anxiety, Depression Smoking Status: Current every day smoker Past Alcohol Use History: None Reported Past Drug Use History: None Reported General Exam Limitations: no limitations General appearance: alert, in no apparent distress, other (Physical well- developed, well-nourished elderly female patient in no acute distress. Vital signs upon presentation are temperature 98.1F, pulse 69, respirations 16, blood pressure 147/74, pulse ox 98% on room air.) Eye exam: Present: normal appearance, PERRL, EOMI. Absent: scleral icterus, conjunctival injection, periorbital swelling ENT exam: Present: normal exam, normal oropharynx, mucous membranes moist Respiratory exam: Present: normal lung sounds bilaterally. Absent: respiratory distress, wheezes, rales, rhonchi, stridor Cardiovascular Exam: Present: regular rate, normal rhythm, normal heart sounds. Absent: systolic murmur, diastolic murmur, rubs, gallop, clicks GI/Abdominal exam: Present: soft, tenderness (Left midabdomen tenderness), normal bowel sounds. Absent: distended, guarding, rebound, rigid Neurological exam: Present: alert, oriented X3, CN II-XII intact Psychiatric exam: Present: normal affect, normal mood Skin exam: Present: warm, dry, intact, normal color. Absent: rash Course Vital Signs 10/30/18 10/30/18 20:45 23:10 Temperature 98.1 F 97.9 F Pulse Rate 69 62 Respiratory 16 15 Rate Blood Pressure 147/74 178/73 O2 Sat by Pulse 98 96 Oximetry Medical Decision Making - Medical Decision Making 73-year-old female patient presented to the emergency department today for complaints of left-sided abdominal pain and dry heaves. Physical examination did reveal left midabdomen tenderness. Labs reviewed and were unremarkable. Given patient's history of multiple abdominal surgeries did perform CT abdomen and pelvis with contrast, this showed evidence for duodenitis. Is unclear if the etiology is infectious or inflammatory nature so we will administer Rocephin and Flagyl today. We will admit for hydration and pain management. We 'll consult gastroenterology. - Lab Data Result diagrams: 10/30/18 21:15 10/30/18 21:15 Lab Results 10/30/18 10/30/18 10/30/18 Range/Units 21:15 21:15 21:15 WBC 9.6 (3.8-10.6) k/uL RBC 3.78 L (3.80-5.40) m/uL Hgb 12.2 (11.4-16.0) gm/dL Hct 37.3 (34.0-46.0) % MCV 98.6 D (80.0-100.0) fL MCH 32.2 (25.0-35.0) pg MCHC 32.6 (31.0-37.0) g/dL RDW 16.5 H (11.5-15.5) % Plt Count 240 (150-450) k/uL Neutrophils % 68 % Lymphocytes % 22 % Monocytes % 7 % Eosinophils % 1 % Basophils % 1 % Neutrophils # 6.5 (1.3-7.7) k/uL Lymphocytes # 2.1 (1.0-4.8) k/uL Monocytes # 0.7 (0-1.0) k/uL Eosinophils # 0.1 (0-0.7) k/uL Basophils # 0.1 (0-0.2) k/uL Anisocytosis Slight Macrocytosis Slight Sodium 137 (137-145) mmol/L Potassium 4.4 (3.5-5.1) mmol/L Chloride 105 (98-107) mmol/L Carbon Dioxide 25 (22-30) mmol/L Anion Gap 7 mmol/L BUN 17 (7-17) mg/dL Creatinine 0.88 (0.52-1.04) mg/dL Est GFR (CKD-EPI)AfAm 75 (>60 ml/min/1.73 sqM) Est GFR (CKD-EPI)NonAf 65 (>60 ml/min/1.73 sqM) Glucose 155 H (74-99) mg/dL Plasma Lactic Acid Mushtaq 1.0 (0.7-2.0) mmol/L Calcium 9.9 (8.4-10.2) mg/dL Total Bilirubin 0.4 (0.2-1.3) mg/dL AST 23 (14-36) U/L ALT 22 (9-52) U/L Alkaline Phosphatase 95 (38-126) U/L Troponin I (0.000-0.034) ng/mL Total Protein 6.0 L (6.3-8.2) g/dL Albumin 3.4 L (3.5-5.0) g/dL Amylase 69 (30-110) U/L Lipase 136 (23-300) U/L Urine Color Urine Appearance (Clear) Urine pH (5.0-8.0) Ur Specific [place] (1.001-1.035) Urine Protein (Negative) Urine Glucose (UA) (Negative) Urine Ketones (Negative) Urine Blood (Negative) Urine Nitrite (Negative) Urine Bilirubin (Negative) Urine Urobilinogen (<2.0) mg/dL Ur Leukocyte Esterase (Negative) Urine RBC (0-5) /hpf Urine WBC (0-5) /hpf Ur Squamous Epith Cells (0-4) /hpf Urine Bacteria (None) /hpf Urine Mucus (None) /hpf 10/30/18 10/30/18 Range/Units 21:15 23:10 WBC (3.8-10.6) k/uL RBC (3.80-5.40) m/uL Hgb (11.4-16.0) gm/dL Hct (34.0-46.0) % MCV (80.0-100.0) fL MCH (25.0-35.0) pg MCHC (31.0-37.0) g/dL RDW (11.5-15.5) % Plt Count (150-450) k/uL Neutrophils % % Lymphocytes % % Monocytes % % Eosinophils % % Basophils % % Neutrophils # (1.3-7.7) k/uL Lymphocytes # (1.0-4.8) k/uL Monocytes # (0-1.0) k/uL Eosinophils # (0-0.7) k/uL Basophils # (0-0.2) k/uL Anisocytosis Macrocytosis Sodium (137-145) mmol/L Potassium (3.5-5.1) mmol/L Chloride (98-107) mmol/L Carbon Dioxide (22-30) mmol/L Anion Gap mmol/L BUN (7-17) mg/dL Creatinine (0.52-1.04) mg/dL Est GFR (CKD-EPI)AfAm (>60 ml/min/1.73 sqM) Est GFR (CKD-EPI)NonAf (>60 ml/min/1.73 sqM) Glucose (74-99) mg/dL Plasma Lactic Acid Mushtaq (0.7-2.0) mmol/L Calcium (8.4-10.2) mg/dL Total Bilirubin (0.2-1.3) mg/dL AST (14-36) U/L ALT (9-52) U/L Alkaline Phosphatase (38-126) U/L Troponin I <0.012 (0.000-0.034) ng/mL Total Protein (6.3-8.2) g/dL Albumin (3.5-5.0) g/dL Amylase (30-110) U/L Lipase (23-300) U/L Urine Color Yellow Urine Appearance Clear (Clear) Urine pH 6.0 (5.0-8.0) Ur Specific [place] 1.028 (1.001-1.035) Urine Protein Negative (Negative) Urine Glucose (UA) Negative (Negative) Urine Ketones Negative (Negative) Urine Blood Negative (Negative) Urine Nitrite Negative (Negative) Urine Bilirubin Negative (Negative) Urine Urobilinogen 2.0 (<2.0) mg/dL Ur Leukocyte Esterase Small H (Negative) Urine RBC 2 (0-5) /hpf Urine WBC 18 H (0-5) /hpf Ur Squamous Epith Cells 2 (0-4) /hpf Urine Bacteria Rare H (None) /hpf Urine Mucus Rare H (None) /hpf - Radiology Data Radiology results: report reviewed, image reviewed CT abdomen and pelvis with contrast was obtained. Report was reviewed in its entirety. Impression by Dr. Pineda shows thickened hyperemic to numb, correlate with infectious/inflammatory duodenitis. Mild colonic diverticulosis. Moderate spinal stenosis at L3 to 4 and L4 to 5 secondary to anterior listhesis. There is also severe left L4 to 5 neural foraminal stenosis. Disposition Clinical Impression: Duodenitis Disposition: ADMITTED IP TO THIS [facility] Condition: Serious Referrals: Mehnaz Beck DO [Primary Care Provider] - 1-2 days Decision to Admit Reason: Admit from EC Decision Date: 10/31/18 Decision Time: 00:22
[2018-10-30 21:53] LABS: Anisocytosis Slight; Basophils # (A) 0.1 k/uL (0-0.2); Basophils % (A) 1 %; Eosinophils # (A) 0.1 k/uL (0-0.7); Eosinophils % (A) 1 %; HCT 37.3 % (34.0-46.0); HGB 12.2 gm/dL (11.4-16.0); Lymphocytes # (A) 2.1 k/uL (1.0-4.8); Lymphocytes % (A) 22 %; MCH 32.2 pg (25.0-35.0); MCHC 32.6 g/dL (31.0-37.0); Macrocytosis Slight; Mean Platelet Volume 7.1; Monocytes # (A) 0.7 k/uL (0-1.0); Monocytes % (A) 7 %; Neutrophils # (A) 6.5 k/uL (1.3-7.7); Neutrophils % (A) 68 %; Platelet Count 240 k/uL (150-450); RBC 3.78 m/uL (3.80-5.40); RDW 16.5 % (11.5-15.5); WBC 9.6 k/uL (3.8-10.6)
[2018-10-30 22:00] LABS: MCV 98.6 fL (80.0-100.0)
[2018-10-30 22:05] LABS: Albumin 3.4 g/dL (3.5-5.0); Calcium 9.9 mg/dL (8.4-10.2); Potassium 4.4 mmol/L (3.5-5.1); Total Bilirubin 0.4 mg/dL (0.2-1.3)
--- NOTE | 2018-10-30 23:10 | CT ---
EXAM: CT Abdomen and Pelvis With Intravenous Contrast CLINICAL HISTORY: ITS.REASON CT Reason: abdominal pain TECHNIQUE: Axial computed tomography images of the abdomen and pelvis with intravenous contrast. CTDI is 14 mGy and DLP is 645 mGy-cm. This CT exam was performed using one or more of the following dose reduction techniques: automated exposure control, adjustment of the mA and/or kV according to patient size, and/or use of iterative reconstruction technique. COMPARISON: No relevant prior studies available. FINDINGS: Lung bases: No mass. No consolidation. ABDOMEN: Liver: Unremarkable. Gallbladder and bile ducts: Removed. Pancreas: Unremarkable. Spleen: Unremarkable. Adrenals: Unremarkable. Kidneys and ureters: No hydronephrosis. Cysts. Stomach and bowel: No bowel obstruction. Few colonic diverticula. There is thickening of the duodenum with enhancement of the wall. Gastric banding hardware is seen. Mild hiatal hernia. PELVIS: Bladder: Unremarkable. ABDOMEN and PELVIS: Intraperitoneal space: Unremarkable. Bones/joints: No acute fractures. Grade 1 anterolisthesis of L3 on L4 and L4 on L5 with likely moderate spinal canal stenosis at these levels. Severe left neural foraminal stenosis at L4-5. Soft tissues: Unremarkable. Vasculature: No abdominal aortic aneurysm. Moderate atherosclerosis. Lymph nodes: No enlarged lymph nodes. IMPRESSION: 1. Thickened hyperemic duodenum, correlate with infectious/inflammatory duodenitis. 2. Mild colonic diverticulosis. 3. Moderate spinal canal stenosis at L3-4 and L4-5 secondary to anterolisthesis. There is also severe left L4-L5 neural foraminal stenosis.
[2018-10-30 23:25] LABS: Appearance,Urine Clear (Clear); Bacteria,Urine Rare /hpf; Bilirubin,Urine Negative (Negative); Blood,Urine Negative (Negative); Color,Urine Yellow; Glucose,Urine (UA) Negative (Negative); Ketones,Urine Negative (Negative); Leukocyte Esterase,Urine Small (Negative); Mucus,Urine Rare /hpf; Nitrite,Urine Negative (Negative); Protein,Urine Negative (Negative); RBC,Urine 2 /hpf (0-5); Specific Gravity,Urine 1.028 (1.001-1.035); Squamous Epithelial Cell,Urine 2 /hpf (0-4); WBC,Urine 18 /hpf (0-5)
[2018-10-30] MEDS ORDERED: PANTOPRAZOLE 40 MG/10 ML VIAL IVP STA (23:59)
[2018-10-31] MEDS ORDERED: ACETAMINOPHEN TAB 325 MG TAB PO PRN (00:16)
[2018-10-31] MEDS ORDERED: NALOXONE 0.4 MG/ML 1 ML VIAL IV PRN (00:16)
[2018-10-31] MEDS ORDERED: ONDANSETRON 4 MG/2 ML VIAL IVP PRN (00:16)
[2018-10-31] MEDS ORDERED: metroNIDAZOLE-NS PMX 500 MG in SALINE 1 100ML.BAG IVPB STA ×2 (00:19→02:11)
[2018-10-31] MEDS ORDERED: cloNIDine HCL 0.1 MG TAB PO STA (00:24)
[2018-10-31] MEDS: HYDROmorphone 0.5 MG/0.5 ML SYRINGE IVP PRN ×2 (01:38→06:42)
[2018-10-31] MEDS: SODIUM CHLORIDE 0.9% 1,000 ML IV SCH ×2 (02:25→15:12)
[2018-10-31] MEDS: PANTOPRAZOLE 40 MG/10 ML VIAL IVP SCH ×2 (06:43→20:22)
--- NOTE | 2018-10-31 10:19 | P.HPIM ---
History of Present Illness H&P Date: 10/31/18 Chief Complaint: Abdominal pain and vomiting Vilma Costa is a 73-year-old female who presented to [facility] with a chief complaint of abdominal pain and vomiting patient stated that her symptoms started about 4 weeks ago and has been worsening her pain is mostly in the left lower quadrant she was evaluated in the emergency room and had a computed tomography scan of the abdomen and pelvis that revealed evidence of duodenitis and diverticulosis without evidence of diverticulitis she was started on IV Protonix and was admitted to medical floor and gastroenterology consultation was requested. Patient stated that she had hernia surgery in March 2018, she also had previous history of lap band surgery in 2000 Currently patient is feeling better her abdominal pain has improved overall intake has resolved patient is nothing by mouth at this time There is no fever or chills no headache or dizziness no chest pain no shortness of breath no cough and no urinary symptoms Past Medical History Past Medical History: Diabetes Mellitus, Hyperlipidemia, Hypertension, Thyroid Disorder Additional Past Medical History / Comment(s): Type 2 DM (resolved), Hypothyroidism, IBS; shingles to left shoulder/arm finished treatment 10/29/18, started 8wks ago History of Any Multi-Drug Resistant Organisms: None Reported Past Surgical History: Appendectomy, Bariatric Surgery, Cholecystectomy, Hernia Repair, Tonsillectomy, Tubal Ligation Additional Past Surgical History / Comment(s): lap band placed 2000(??) Past Anesthesia/Blood Transfusion Reactions: No Reported Reaction Additional Past Anesthesia/Blood Transfusion Reaction / Comment(s): No blood transfusion to date Past Psychological History: Anxiety, Depression Smoking Status: Current every day smoker Past Alcohol Use History: None Reported Past Drug Use History: None Reported Additional Drug Use History / Comment(s): 1/2 pack /day x 60 years (off and on) Medications and Allergies Home Medications Medication Instructions Recorded Confirmed Type Aspirin EC [Ecotrin] 325 mg PO DAILY 07/28/16 10/31/18 History FLUoxetine HCL [Sarafem] 60 mg PO TID 02/16/18 10/31/18 History HYDROcodone/APAP 7.5-325MG [[place] 7.5 mg PO QID PRN 02/16/18 10/31/18 History 7.5-325] Levothyroxine Sodium [Synthroid] 25 mcg PO DAILY 02/16/18 10/31/18 History Losartan Potassium [Cozaar] 50 mg PO DAILY 02/16/18 10/31/18 History OLANZapine [ZyPREXA] 10 mg PO DAILY 02/16/18 10/31/18 History Pravastatin Sodium [Pravachol] 40 mg PO HS 02/16/18 10/31/18 History busPIRone HCl [Buspar] 10 mg PO BID 02/16/18 10/31/18 History cloNIDine HCL [Catapres] 0.1 mg PO DAILY 02/16/18 10/31/18 History Potassium Chloride [Klor-Con 10] 10 meq PO BID 03/11/18 10/31/18 History Cholecalciferol [Vitamin D3] 1,000 unit PO DAILY 09/19/18 10/31/18 History Mirabegron [Myrbetriq] 50 mg PO DAILY 09/19/18 10/31/18 History Allergies Allergy/AdvReac Type Severity Reaction Status Date / Time No Known Allergies Allergy Verified 10/31/18 08:26 Physical Exam Vitals: Vital Signs Temp Pulse Pulse Resp BP BP Pulse Ox 10/31/18 04:43 97.4 F L 56 L 18 96/60 92 L 10/31/18 01:30 96.9 F L 58 L 18 189/83 95 10/31/18 01:05 97.6 F 62 16 165/79 95 10/31/18 00:20 63 16 188/85 95 10/30/18 23:10 97.9 F 62 15 178/73 96 10/30/18 20:45 98.1 F 69 16 147/74 98 Intake and Output 10/30/18 10/31/18 10/31/18 22:59 06:59 14:59 Intake Total 400 Balance 400 Intake: Intake, IV Titration 400 Amount Sodium Chloride 0.9% 1, 300 000 ml @ 75 mls/hr IV . [id number] [facility] Rx#:[id number] metroNIDAZOLE-NS PMX 500 100 mg In Saline 1 100ml.bag @ 100 mls/hr IVPB ONCE STA Rx#:[id number] Other: Voiding Method Toilet Weight 63.957 kg In general patient is alert and oriented 3 in no apparent distress HEENT head normocephalic and atraumatic Neck is supple no JVD no goiter no lymphadenopathy Chest exam reveals a few scattered crackles bilaterally no wheezing Cardiac exam reveals regular heart sounds S1 and S2 no gallops no murmurs Abdomen is soft nontender no organomegaly with normal bowel sounds Extremity exam reveals no edema no cyanosis or clubbing Neurological examination reveals no gross focal deficit Results CBC & Chem 7: 10/30/18 21:15 10/30/18 21:15 Labs: Abnormal Lab Results - Last 24 Hours (Table) 10/30/18 10/30/18 10/30/18 Range/Units 21:15 21:15 23:10 RBC 3.78 L (3.80-5.40) m/uL RDW 16.5 H (11.5-15.5) % Glucose 155 H (74-99) mg/dL Total Protein 6.0 L (6.3-8.2) g/dL Albumin 3.4 L (3.5-5.0) g/dL Ur Leukocyte Esterase Small H (Negative) Urine WBC 18 H (0-5) /hpf Urine Bacteria Rare H (None) /hpf Urine Mucus Rare H (None) /hpf Thrombosis Risk Factor Assmnt - Choose All That Apply Any of the Below Risk Factors Present?: No Other Risk Factors: Yes Each Risk Factor Represents 3 Points: Age 75 years or older Other congenital or acquired thrombophilia - If yes, enter type in comment: No Thrombosis Risk Factor Assessment Total Risk Factor Score: 3 Thrombosis Risk Factor Assessment Level: Moderate Risk Assessment and Plan Plan: #1 abdominal pain and vomiting for the last 4 weeks #2 evidence of duodenitis on computed tomography scan of the abdomen and pelvis done in the emergency room #3 previous history of ventral hernia with surgical repair in March 2018 #4 remote history of laparoscopic banding surgery in 2000 #5 underlying history of hypertension #6 underlying history of hyperlipidemia #7 underlying history of hypothyroidism #8 underlying history of depression with anxiety At this time medication reviewed and reordered, Gastroenterology consult requested Continue with IV Protonix at this time We will add a consult for surgery Dr. Segovia Recheck labs and follow in a.m. Add Lovenox subcu for DVT prophylaxis
[2018-10-31] MEDS ORDERED: cloNIDine HCL 0.1 MG TAB PO SCH (10:30)
[2018-10-31] MEDS: OLANZapine 10 MG TAB PO SCH (11:27)
[2018-10-31] MEDS: LOSARTAN 50 MG TAB PO SCH (11:27)
[2018-10-31] MEDS: LEVOTHYROXINE 25 MCG TAB PO SCH (11:27)
[2018-10-31] MEDS: ENOXAPARIN 40 MG/0.4 ML SYRINGE SQ SCH (11:28)
[2018-10-31] MEDS: PATIENT'S OWN (Mirabegron [Myrbetriq] 50 MG) PO SCH (11:34)
[2018-10-31] MEDS: FLUoxetine HCL 20 MG CAP PO SCH (12:33)
[2018-10-31] MEDS: HYDROcodone/APAP 7.5-325MG 1 EACH TAB PO PRN ×2 (12:35→20:21)
[2018-10-31] MEDS ORDERED: DICYCLOMINE 10 MG CAP PO PRN (17:36)
--- NOTE | 2018-10-31 17:58 | P.CONS ---
History of Present Illness - Reason for Consult Consult date: 10/31/18 Duodenitis Requesting physician: Familia Wolf - Chief Complaint Nausea, dry heaving, abdominal pain - History of Present Illness 73-year-old female with multiple medical comorbidities including diabetes mellitus, hypothyroidism, hypertension and IBS D and an extensive surgical history who presented with complaints of abdominal pain, nausea and heaving. The patient reports 4 weeks of abdominal pain described as occurring in the left lower quadrant of her abdomen. The pain is intermittent, indicating and severe in intensity. No association of the pain with bowel movements or eating. The patient also had nausea with dry heaving prior to presentation. At baseline the patient had been having loose bowel movements and was evaluated by gastroenterology in the outpatient setting. At that time celiac testing was negative. The patient was started on Imodium and has been titrating it to her bowel movements. She denies any use of antispasmodic medications in the past. Prior to presentation she reports a soft bowel movement every few days with no hematochezia or melena. On presentation to the hospital hemoglobin was 12.2, bili count 240,000, lipase 136, amylase 69 and a computed tomography scan of the abdomen showing thickening of the duodenum, with mild colonic diverticulosis and no signs of obstruction. Review of Systems REVIEW OF SYSTEMS: CONSTITUTIONAL: Denies any fevers, chills, weight change or fatigue. CARDIOVASCULAR: Denies any chest pain, palpitations high or low blood pressures RESPIRATORY: Denies any shortness of breath, hemoptysis or cough. GENITOURINARY: No dysuria or hematuria. MUSCULOSKELETAL: No weakness reported. SKIN: Denies any new rashes or lesions, jaundice or pallor. PSYCHIATRIC: Denies any depression or anxiety. NEUROLOGY: Denies headache, denies any new focal deficits. EARS/NOSE/THROAT: No recent hearing change, congestion, nasal discharge or sore throat. EYES: No pain in eyes, discharge or change in vision. GASTROINTESTINAL: As per HPI. Past Medical History Past Medical History: Diabetes Mellitus, Hyperlipidemia, Hypertension, Thyroid Disorder Additional Past Medical History / Comment(s): Type 2 DM (resolved), Hypothyroidism, IBS; shingles to left shoulder/arm finished treatment 10/29/18, started 8wks ago History of Any Multi-Drug Resistant Organisms: None Reported Past Surgical History: Appendectomy, Bariatric Surgery, Cholecystectomy, Hernia Repair, Tonsillectomy, Tubal Ligation Additional Past Surgical History / Comment(s): lap band placed 2000(??) Past Anesthesia/Blood Transfusion Reactions: No Reported Reaction Additional Past Anesthesia/Blood Transfusion Reaction / Comm: No blood transfusion to date Past Psychological History: Anxiety, Depression Smoking Status: Current every day smoker Past Alcohol Use History: None Reported Past Drug Use History: None Reported Additional Drug Use History / Comment(s): 1/2 pack /day x 60 years (off and on) Additional History: family history: Reviewed with the patient and noncontributory to current medical presentation. Medications and Allergies Home Medications Medication Instructions Recorded Confirmed Type Aspirin EC [Ecotrin] 325 mg PO DAILY 07/28/16 10/31/18 History HYDROcodone/APAP 7.5-325MG [[place] 7.5 mg PO QID PRN 02/16/18 10/31/18 History 7.5-325] Levothyroxine Sodium [Synthroid] 25 mcg PO DAILY 02/16/18 10/31/18 History Losartan Potassium [Cozaar] 50 mg PO DAILY 02/16/18 10/31/18 History OLANZapine [ZyPREXA] 10 mg PO DAILY 02/16/18 10/31/18 History Pravastatin Sodium [Pravachol] 40 mg PO HS 02/16/18 10/31/18 History busPIRone HCl [Buspar] 10 mg PO BID 02/16/18 10/31/18 History cloNIDine HCL [Catapres] 0.1 mg PO DAILY 02/16/18 10/31/18 History Potassium Chloride [Klor-Con 10] 10 meq PO BID 03/11/18 10/31/18 History Cholecalciferol [Vitamin D3] 1,000 unit PO DAILY 09/19/18 10/31/18 History Mirabegron [Myrbetriq] 50 mg PO DAILY 09/19/18 10/31/18 History FLUoxetine HCL [PROzac] 60 mg PO DAILY 10/31/18 10/31/18 History Allergies Allergy/AdvReac Type Severity Reaction Status Date / Time No Known Allergies Allergy Verified 10/31/18 08:26 Physical Exam Vitals: Vital Signs Temp Pulse Pulse Resp BP BP Pulse Ox 10/31/18 13:44 63 16 10/31/18 12:15 97.8 F 63 16 141/64 95 10/31/18 11:34 144/65 10/31/18 04:43 97.4 F L 56 L 18 96/60 92 L 10/31/18 01:30 96.9 F L 58 L 18 189/83 95 10/31/18 01:05 97.6 F 62 16 165/79 95 10/31/18 00:20 63 16 188/85 95 10/30/18 23:10 97.9 F 62 15 178/73 96 10/30/18 20:45 98.1 F 69 16 147/74 98 Intake and Output 10/31/18 10/31/18 10/31/18 06:59 14:59 22:59 Intake Total 400 1880 Balance 400 1880 Intake: Intake, IV Titration 400 700 Amount Sodium Chloride 0.9% 1, 300 600 000 ml @ 75 mls/hr IV . [id number] [facility] Rx#:[id number] metroNIDAZOLE-NS PMX 500 100 100 mg In Saline 1 100ml.bag @ 100 mls/hr IVPB ONCE STA Rx#:[id number] Oral 1180 Other: Voiding Method Toilet # Voids 3 On physical examination, patient appears comfortable in no apparent distress. HEAD: Normocephalic, atraumatic. EYES: No scleral icterus. No conjunctival injection. MOUTH: No lesions, tongue midline. NECK: Trachea midline, no gross abnormalities. CHEST: Clear to auscultation with no wheezing or rhonchi appreciated. HEART: Regular rate and rhythm. ABDOMEN: Soft, obese. Bowel sounds are positive. No organomegaly. No guarding or rigidity. EXTREMITIES: No pedal edema. SKIN: No rashes, no jaundice. NEUROLOGIC: Alert and oriented x3. No focal deficits. Results CBC & Chem 7: 10/30/18 21:15 10/30/18 21:15 Labs: Abnormal Lab Results - Last 24 Hours (Table) 10/30/18 10/30/18 10/30/18 Range/Units 21:15 21:15 23:10 RBC 3.78 L (3.80-5.40) m/uL RDW 16.5 H (11.5-15.5) % Glucose 155 H (74-99) mg/dL Total Protein 6.0 L (6.3-8.2) g/dL Albumin 3.4 L (3.5-5.0) g/dL Ur Leukocyte Esterase Small H (Negative) Urine WBC 18 H (0-5) /hpf Urine Bacteria Rare H (None) /hpf Urine Mucus Rare H (None) /hpf Microbiology - Last 24 Hours (Table) 10/30/18 23:10 Urine Culture - Preliminary Urine,Clean Catch CT scan - abdomen: report reviewed (computed tomography scan of the abdomen showing thickening of the duodenum, with mild colonic diverticulosis and no signs of obstruction.) Assessment and Plan (1) Duodenitis Narrative/Plan: Patient presenting with complaints of left lower quadrant abdominal pain and nausea and dry heaving with CT findings of duodenal thickening consistent with duodenitis. Unclear if this represents a viral gastroenteritis, duodenal ulcer , or other etiology. Current Visit: Yes Status: Acute Code(s): K29.80 - DUODENITIS WITHOUT BLEEDING SNOMED Code(s): 72459750 (2) Irritable bowel syndrome with diarrhea Narrative/Plan: Patient who has been following up with gastroenterology in the outpatient setting and has been started on Imodium, titrated to bowel movements. Celiac testing has been negative. Current Visit: Yes Status: Acute Code(s): K58.0 - IRRITABLE BOWEL SYNDROME WITH DIARRHEA SNOMED Code(s): 364237567 Plan: Supportive care Okay for liquids, advance as tolerated Nothing by mouth after midnight Plan for EGD tomorrow Imodium as needed for diarrhea Bentyl as needed for abdominal pain Thank you for allowing us to participate in the care of the patient, we will continue to follow
[2018-10-31] MEDS: busPIRone HCl 10 MG TAB PO SCH (20:22)
[2018-10-31] MEDS: POTASSIUM CHLORIDE ER 10 MEQ TAB.ER.PRT PO SCH (20:22)
[2018-10-31] MEDS: cloNIDine HCL 0.1 MG TAB PO SCH (20:22)
[2018-10-31] MEDS: PRAVASTATIN SODIUM 40 MG TAB PO SCH (20:22)
[2018-11-01] MEDS: SODIUM CHLORIDE 0.9% 1,000 ML IV SCH ×2 (04:26→16:25)
[2018-11-01] MEDS: HYDROcodone/APAP 7.5-325MG 1 EACH TAB PO PRN ×3 (05:36→21:57)
[2018-11-01] MEDS: LEVOTHYROXINE 25 MCG TAB PO SCH (05:36)
[2018-11-01] MEDS: ENOXAPARIN 40 MG/0.4 ML SYRINGE SQ SCH (07:08)
[2018-11-01] MEDS: PANTOPRAZOLE 40 MG/10 ML VIAL IVP SCH (08:42)
[2018-11-01] MEDS: FLUoxetine HCL 20 MG CAP PO SCH (08:43)
[2018-11-01] MEDS: POTASSIUM CHLORIDE ER 10 MEQ TAB.ER.PRT PO SCH ×2 (08:43→21:54)
[2018-11-01] MEDS: busPIRone HCl 10 MG TAB PO SCH ×2 (08:44→21:54)
[2018-11-01] MEDS: OLANZapine 10 MG TAB PO SCH (08:44)
[2018-11-01] MEDS: PATIENT'S OWN (Mirabegron [Myrbetriq] 50 MG) PO SCH (08:46)
[2018-11-01] MEDS: LOSARTAN 50 MG TAB PO SCH (08:48)
[2018-11-01 09:47] LABS: Anisocytosis Slight; Basophils % (A) 1 %; Eosinophils # (A) 0.1 k/uL (0-0.7); Eosinophils % (A) 1 %; HCT 33.6 % (34.0-46.0); HGB 10.9 gm/dL (11.4-16.0); Hypochromasia Slight; Lymphocytes # (A) 1.7 k/uL (1.0-4.8); Lymphocytes % (A) 32 %; MCH 32.2 pg (25.0-35.0); MCHC 32.5 g/dL (31.0-37.0); MCV 99.1 fL (80.0-100.0); Macrocytosis Slight; Mean Platelet Volume 7.3; Monocytes # (A) 0.4 k/uL (0-1.0); Monocytes % (A) 7 %; Neutrophils % (A) 55 %; Platelet Count 209 k/uL (150-450); RBC 3.39 m/uL (3.80-5.40); RDW 16.7 % (11.5-15.5); WBC 5.4 k/uL (3.8-10.6)
[2018-11-01 10:07] LABS: Albumin 2.7 g/dL (3.5-5.0); Calcium 9.2 mg/dL (8.4-10.2); Potassium 4.1 mmol/L (3.5-5.1); Total Bilirubin 0.3 mg/dL (0.2-1.3)
[2018-11-01] MEDS: CHOLECALCIFEROL 1,000 UNIT TAB PO SCH (11:09)
[2018-11-01 11:16] VITALS: BMI 27.5
--- NOTE | 2018-11-01 12:38 | P.PN ---
Subjective Progress Note Date: 11/01/18 Vilma Costa is a 73-year-old female who presented to [facility] with a chief complaint of abdominal pain and vomiting patient stated that her symptoms started about 4 weeks ago and has been worsening her pain is mostly in the left lower quadrant she was evaluated in the emergency room and had a computed tomography scan of the abdomen and pelvis that revealed evidence of duodenitis and diverticulosis without evidence of diverticulitis she was started on IV Protonix and was admitted to medical floor and gastroenterology consultation was requested. Patient stated that she had hernia surgery in March 2018, she also had previous history of lap band surgery in 2000 Currently patient is feeling better her abdominal pain has improved overall intake has resolved patient is nothing by mouth at this time There is no fever or chills no headache or dizziness no chest pain no shortness of breath no cough and no urinary symptoms On 11/01/2018 patient's alert and oriented 3 with comfortably in bed. Patient reports abdominal pain has improved. Patient denies chest pain or shortness of breath. Patient denies nausea vomiting or diarrhea. Patient denies any urinary burning or frequency. Patient will undergo EGD today Objective - Vital Signs Vital signs: Vital Signs Temp 97.3 F L 11/01/18 11:45 Pulse 65 11/01/18 11:45 Resp 16 11/01/18 11:45 BP 155/76 11/01/18 11:45 Pulse Ox 97 11/01/18 11:45 Intake & Output 10/31/18 11/01/18 11/01/18 18:59 06:59 18:59 Intake Total 1880 225 Balance 1880 225 Weight 63.957 kg Intake: Intake, IV Titration 700 225 Amount Sodium Chloride 0.9% 1, 600 225 000 ml @ 75 mls/hr IV . [id number] [facility] Rx#:[id number] metroNIDAZOLE-NS PMX 500 100 mg In Saline 1 100ml.bag @ 100 mls/hr IVPB ONCE STA Rx#:[id number] Oral 1180 Other: Voiding Method Toilet Toilet Toilet # Voids 3 1 - Exam Head normocephalic Neck supple Lungs clear to auscultation bilaterally no wheezing or crackles Heart regular rate and rhythm S1-S2, no rub or gallop Abdomen is soft nontender nondistended positive bowel sounds no hepatosplenomegaly Extremities no edema Neuro alert and orientated to 3 - Labs CBC & Chem 7: 11/01/18 08:26 11/01/18 08:26 Labs: Abnormal Lab Results - Last 24 Hours (Table) 11/01/18 11/01/18 Range/Units 08:26 08:26 RBC 3.39 L (3.80-5.40) m/uL Hgb 10.9 L (11.4-16.0) gm/dL Hct 33.6 L (34.0-46.0) % RDW 16.7 H (11.5-15.5) % Chloride 111 H (98-107) mmol/L Total Protein 5.0 L (6.3-8.2) g/dL Albumin 2.7 L (3.5-5.0) g/dL Microbiology - Last 24 Hours (Table) 10/30/18 23:10 Urine Culture - Preliminary Urine,Clean Catch Gram Neg Bacilli Assessment and Plan Assessment: #1 abdominal pain and vomiting for the last 4 weeks #2 evidence of duodenitis on computed tomography scan of the abdomen and pelvis done in the emergency room #3 previous history of ventral hernia with surgical repair in March 2018 #4 remote history of laparoscopic banding surgery in 2000 #5 underlying history of hypertension #6 underlying history of hyperlipidemia #7 underlying history of hypothyroidism #8 underlying history of depression with anxiety #9 urinary tract infection. Urine culture ordered. Patient maintained on Rocephin At this time medication reviewed and reordered, Gastroenterology consult requested Continue with IV Protonix at this time We will add a consult for surgery Dr. Segovia Patient to undergo EGD today Add Lovenox subcu for DVT prophylaxis I performed an examination of the patient and discussed their management with the Nurse Practitioner. I have reviewed the Nurse Practitioner's notes and agree with the documented findings and plan of care
--- NOTE | 2018-11-01 12:42 | P.GSCN ---
History of Present Illness Consult date: 11/01/18 Reason for Consult: abdominal pain, vomiting, hx of lap band Requesting physician: Familia Wolf History of present illness: CHIEF COMPLAINT: abdominal pain HISTORY OF PRESENT ILLNESS: 73-year-old female who presented to the emergency room with abdominal pain. General surgery was consulted for further evaluation. Patient reports nausea and dry heaves for 4 days prior to coming to the hospital. She also reports epigastric pain over the past week. She reports intermittent suprapubic pain over the last 4 weeks. Patient states she follows with Dr. Sharp outpatient and was recently started on Immodium for IBS D. She denies hematemesis, hematochezia, or melena. Reports having bowel movements usually every 2 days. PAST MEDICAL HISTORY: See list. PAST SURGICAL HISTORY: See list. MEDICATIONS: See list. ALLERGIES: See list. SOCIAL HISTORY: No illicit drug use. REVIEW OF SYSTEMS: CONSTITUTIONAL: Denies fever or chills. HEENT: Denies blurred vision, vision changes, or eye pain. Denies hemoptysis ENDOCRINE: Denies heat or cold intolerance. CARDIOVASCULAR: Denies chest pain or pressure. RESPIRATORY: No shortness of breath. GASTROINTESTINAL: Reports abdominal pain, nausea, and vomiting prior to hospitalization. Currently denies nausea or vomiting. NEURO: Denies history of seizures. PSYCH: No depression or suicidal ideation HEMATOLOGIC: Denies bleeding disorders. LYMPHATIC: The patient denies any lumps and bumps around the neck. GENITOURINARY: Denies any blood in urine or increased urinary frequency. MUSCULOSKELETAL: Denies myalgias. Denies joint swelling. Denies decreased range of motion beyond patients baseline. SKIN: Denies pruitis. Denies rash. PHYSICAL EXAM: VITAL SIGNS: Currently stable. GENERAL: Well-developed in no acute distress. HEENT: No sclera icterus. Extraocular movements grossly intact. Moist buccal mucosa. Head is atraumatic, normocephalic. Hears conversational speech. No nasal drainage. NECK: Supple without lymphadenopathy. CHEST: Non-labored respirations and equal bilateral excursions. CARDIOVASCULAR: Regular rate with regular rhythm. Palpable 2+ radial pulses. ABDOMEN: Soft. Nondistended. Mild tenderness upon palpation of left lower quadrant. MUSCULOSKELETAL: No clubbing, cyanosis or edema. NEUROLOGIC: No focal or lateralizing signs. Cranial nerves II through XII grossly intact. PSYCH: Appropriate affect. Alert and oriented to person, place and time. SKIN: Well perfused. Good skin turgor. IMAGING: CT Abdomen/Pelvis: thickened hyperemic duodenum, correlate for infectious/ inflammatory duodenitis. Mild colonic diverticulosis ASSESSMENT: 1. Abdominal pain 2. Duodenitis 3. Mild colonic diverticulosis 4. History of repair of incarcerated incisional hernia and lysis of adhesions, March 2018 5. History of gastric banding PLAN: 1. Patient to undergo EGD today per Dr. Zazueta 2. NPO 3. No immediate surgical intervention advised 4. Further recommendations pending EGD and patient course Nurse practitioner note has been reviewed by physician. Signing provider agrees with the documented findings, assessment, and plan of care. Past Medical History Past Medical History: Diabetes Mellitus, Hyperlipidemia, Hypertension, Thyroid Disorder Additional Past Medical History / Comment(s): Type 2 DM (resolved), Hypothyroidism, IBS; shingles to left shoulder/arm finished treatment 10/29/18, started 8wks ago History of Any Multi-Drug Resistant Organisms: None Reported Past Surgical History: Appendectomy, Bariatric Surgery, Cholecystectomy, Hernia Repair, Tonsillectomy, Tubal Ligation Additional Past Surgical History / Comment(s): lap band placed 2000(??) Past Anesthesia/Blood Transfusion Reactions: No Reported Reaction Additional Past Anesthesia/Blood Transfusion Reaction / Comm: No blood transfusion to date Past Psychological History: Anxiety, Depression Smoking Status: Current every day smoker Past Alcohol Use History: None Reported Past Drug Use History: None Reported Additional Drug Use History / Comment(s): 1/2 pack /day x 60 years (off and on) Medications and Allergies Home Medications Medication Instructions Recorded Confirmed Type Aspirin EC [Ecotrin] 325 mg PO DAILY 07/28/16 10/31/18 History HYDROcodone/APAP 7.5-325MG [[place] 7.5 mg PO QID PRN 02/16/18 10/31/18 History 7.5-325] Levothyroxine Sodium [Synthroid] 25 mcg PO DAILY 02/16/18 10/31/18 History Losartan Potassium [Cozaar] 50 mg PO DAILY 02/16/18 10/31/18 History OLANZapine [ZyPREXA] 10 mg PO DAILY 02/16/18 10/31/18 History Pravastatin Sodium [Pravachol] 40 mg PO HS 02/16/18 10/31/18 History busPIRone HCl [Buspar] 10 mg PO BID 02/16/18 10/31/18 History cloNIDine HCL [Catapres] 0.1 mg PO DAILY 02/16/18 10/31/18 History Potassium Chloride [Klor-Con 10] 10 meq PO BID 03/11/18 10/31/18 History Cholecalciferol [Vitamin D3] 1,000 unit PO DAILY 09/19/18 10/31/18 History Mirabegron [Myrbetriq] 50 mg PO DAILY 09/19/18 10/31/18 History FLUoxetine HCL [PROzac] 60 mg PO DAILY 10/31/18 10/31/18 History Allergies Allergy/AdvReac Type Severity Reaction Status Date / Time No Known Allergies Allergy Verified 10/31/18 08:26 Surgical - Exam Vital Signs Temp Pulse Resp BP Pulse Ox 98.1 F 69 16 147/74 98 10/30/18 20:45 10/30/18 20:45 10/30/18 20:45 10/30/18 20:45 10/30/18 20:45 Results - Labs 11/01/18 08:26 11/01/18 08:26 Abnormal Lab Results - Last 24 Hours (Table) 11/01/18 11/01/18 Range/Units 08:26 08:26 RBC 3.39 L (3.80-5.40) m/uL Hgb 10.9 L (11.4-16.0) gm/dL Hct 33.6 L (34.0-46.0) % RDW 16.7 H (11.5-15.5) % Chloride 111 H (98-107) mmol/L Total Protein 5.0 L (6.3-8.2) g/dL Albumin 2.7 L (3.5-5.0) g/dL Microbiology - Last 24 Hours (Table) 10/30/18 23:10 Urine Culture - Preliminary Urine,Clean Catch Gram Neg Bacilli Diabetes panel 11/01/18 Range/Units 08:26 Sodium 140 (137-145) mmol/L Potassium 4.1 (3.5-5.1) mmol/L Chloride 111 H (98-107) mmol/L Carbon Dioxide 25 (22-30) mmol/L BUN 12 (7-17) mg/dL Creatinine 0.86 (0.52-1.04) mg/dL Glucose 87 (74-99) mg/dL Calcium 9.2 (8.4-10.2) mg/dL AST 17 (14-36) U/L ALT 24 (9-52) U/L Alkaline Phosphatase 67 (38-126) U/L Total Protein 5.0 L (6.3-8.2) g/dL Albumin 2.7 L (3.5-5.0) g/dL Calcium panel 11/01/18 Range/Units 08:26 Calcium 9.2 (8.4-10.2) mg/dL Albumin 2.7 L (3.5-5.0) g/dL Pituitary panel 11/01/18 Range/Units 08:26 Sodium 140 (137-145) mmol/L Potassium 4.1 (3.5-5.1) mmol/L Chloride 111 H (98-107) mmol/L Carbon Dioxide 25 (22-30) mmol/L BUN 12 (7-17) mg/dL Creatinine 0.86 (0.52-1.04) mg/dL Glucose 87 (74-99) mg/dL Calcium 9.2 (8.4-10.2) mg/dL Adrenal panel 11/01/18 Range/Units 08:26 Sodium 140 (137-145) mmol/L Potassium 4.1 (3.5-5.1) mmol/L Chloride 111 H (98-107) mmol/L Carbon Dioxide 25 (22-30) mmol/L BUN 12 (7-17) mg/dL Creatinine 0.86 (0.52-1.04) mg/dL Glucose 87 (74-99) mg/dL Calcium 9.2 (8.4-10.2) mg/dL Total Bilirubin 0.3 (0.2-1.3) mg/dL AST 17 (14-36) U/L ALT 24 (9-52) U/L Alkaline Phosphatase 67 (38-126) U/L Total Protein 5.0 L (6.3-8.2) g/dL Albumin 2.7 L (3.5-5.0) g/dL
[2018-11-01] MEDS ORDERED: LIDOCAINE 1% INJ 10MG/ML (20 ML MDV) ONE (13:25)
[2018-11-01] MEDS ORDERED: PROPOFOL 10 MG/ML 20 ML VIAL IV ONE (13:25)
[2018-11-01] MEDS ORDERED: LACTATED RINGERS 300 ML IV ONE (13:30)
--- NOTE | 2018-11-01 13:50 | P.PCN ---
Date of Procedure: 11/01/18 Description of Procedure: BRIEF HISTORY: 73-year-old female with multiple medical comorbidities including diabetes mellitus, hypothyroidism, hypertension and IBS D and an extensive surgical history who presented with complaints of abdominal pain, nausea and heaving. The patient reports 4 weeks of abdominal pain described as occurring in the left lower quadrant of her abdomen. The pain is intermittent, indicating and severe in intensity. No association of the pain with bowel movements or eating. The patient also had nausea with dry heaving prior to presentation. At baseline the patient had been having loose bowel movements and was evaluated by gastroenterology in the outpatient setting. At that time celiac testing was negative. The patient was started on Imodium and has been titrating it to her bowel movements. No hematochezia or melena. Computed tomography scan of the abdomen showing thickening of the duodenum, with mild colonic diverticulosis and no signs of obstruction.. PROCEDURE PERFORMED: Esophagogastroduodenoscopy with biopsy. PREOPERATIVE DIAGNOSIS: Abdominal pain, abnormal CT findings, thickened duodenum. ESTIMATED BLOOD LOSS: Minimal. IV sedation per anesthesia. PROCEDURE: After informed consent was obtained, the patient was brought into the endoscopy unit. IV sedation was administered by Anesthesia under continuous monitoring. Initially the Olympus GIF-190 video endoscope was inserted into the mouth. Esophagus intubated without any difficulty. It was gradually advanced into the stomach and duodenum and carefully examined. The duodenal bulb appeared edematous and erythematous consistent with moderate duodenitis with biopsies taken. The second portion of the duodenum appeared normal. The scope at this time was withdrawn to the stomach, adequately insufflated with air, and upon careful examination, mucosa of the antrum, body, cardia and the fundus appeared grossly normal. There was scattered erythema in the antrum and body with superficial erosions suggestive of mild to moderate gastritis with biopsies taken of the antrum and body. The scope was then withdrawn into the esophagus. The patient was noted to have a small hiatal hernia. The GE junction was located at 35 cm from the incisors. The esophagus appeared normal. There were no erosions or ulcerations seen with biopsies taken of the distal esophagus. The patient tolerated the procedure well. IMPRESSION: 1. Moderate duodenitis of the duodenal bulb, biopsied. 2. Mild to moderate gastritis of the antrum and body, biopsied. 3. Small hiatal hernia. 4. Distal esophageal biopsies. RECOMMENDATIONS: The findings of this examination were discussed with the patient. Deana to resume diet. Trial of Bentyl as needed for abdominal pain. Protonix 30 mg twice a day. Await pathology from biopsies. Follow up with gastroenterology in the outpatient setting as previously scheduled.
[2018-11-01] MEDS: PANTOPRAZOLE 40 MG TABLET PO SCH (16:14)
[2018-11-01] MEDS: LOPERAMIDE 2 MG CAP PO PRN ×2 (16:14→21:55)
[2018-11-01] MEDS: PRAVASTATIN SODIUM 40 MG TAB PO SCH (21:54)
[2018-11-01] MEDS: cloNIDine HCL 0.1 MG TAB PO SCH (21:54)
[2018-11-02] MEDS: LEVOTHYROXINE 25 MCG TAB PO SCH (06:04)
[2018-11-02] MEDS: SODIUM CHLORIDE 0.9% 1,000 ML IV SCH ×2 (06:05→17:51)
[2018-11-02] MEDS: PATIENT'S OWN (Mirabegron [Myrbetriq] 50 MG) PO SCH (08:09)
[2018-11-02] MEDS: ENOXAPARIN 40 MG/0.4 ML SYRINGE SQ SCH (08:42)
[2018-11-02] MEDS: PANTOPRAZOLE 40 MG TABLET PO SCH ×2 (08:42→17:58)
[2018-11-02] MEDS: FLUoxetine HCL 20 MG CAP PO SCH (08:42)
[2018-11-02] MEDS: busPIRone HCl 10 MG TAB PO SCH ×2 (08:42→22:06)
[2018-11-02] MEDS: LOSARTAN 50 MG TAB PO SCH (08:43)
[2018-11-02] MEDS: OLANZapine 10 MG TAB PO SCH (08:43)
[2018-11-02] MEDS: POTASSIUM CHLORIDE ER 10 MEQ TAB.ER.PRT PO SCH ×2 (08:43→22:06)
[2018-11-02 09:31] LABS: Anisocytosis Slight; Basophils # (A) 0.1 k/uL (0-0.2); Basophils % (A) 1 %; Eosinophils # (A) 0.1 k/uL (0-0.7); Eosinophils % (A) 1 %; HCT 38.4 % (34.0-46.0); HGB 12.2 gm/dL (11.4-16.0); Hypochromasia Slight; Lymphocytes # (A) 1.9 k/uL (1.0-4.8); Lymphocytes % (A) 29 %; MCHC 31.7 g/dL (31.0-37.0); MCV 100.7 fL (80.0-100.0); Macrocytosis Moderate; Mean Platelet Volume 6.4; Monocytes # (A) 0.5 k/uL (0-1.0); Monocytes % (A) 8 %; Neutrophils # (A) 3.8 k/uL (1.3-7.7); Neutrophils % (A) 59 %; Platelet Count 244 k/uL (150-450); RBC 3.82 m/uL (3.80-5.40); RDW 17.1 % (11.5-15.5); WBC 6.4 k/uL (3.8-10.6)
--- NOTE | 2018-11-02 09:36 | P.PN ---
Subjective Progress Note Date: 11/02/18 CHIEF COMPLAINT: abdominal pain HISTORY OF PRESENT ILLNESS: Patient examined at the bedside. S/P EGD revealing moderate duodenitis, [id number] gastritis, and small hiatal hernia. Patient reports her pain has improved this morning. She did have an episode of vomiting this morning secondary to eating her breakfast too fast per patient, which is not uncommon with lap banding. PHYSICAL EXAM: VITAL SIGNS: Currently stable. GENERAL: Well-developed in no acute distress. HEENT: No sclera icterus. Extraocular movements grossly intact. Moist buccal mucosa. Head is atraumatic, normocephalic. Hears conversational speech. No nasal drainage. NECK: Supple without lymphadenopathy. CHEST: Non-labored respirations and equal bilateral excursions. CARDIOVASCULAR: Regular rate with regular rhythm. Palpable 2+ radial pulses. ABDOMEN: Soft. Nondistended. Positive bowel sounds. Lap band port to left lower quadrant. MUSCULOSKELETAL: No clubbing, cyanosis or edema. NEUROLOGIC: No focal or lateralizing signs. Cranial nerves II through XII grossly intact. PSYCH: Appropriate affect. Alert and oriented to person, place and time. SKIN: Well perfused. Good skin turgor. ASSESSMENT: 1. Abdominal pain 2. Duodenitis 3. Mild colonic diverticulosis 4. History of repair of incarcerated incisional hernia and lysis of adhesions, March 2018 5. History of gastric banding PLAN: Patient is stable from a surgical standpoint. She may follow up with Dr. Segovia outpatient. Nurse practitioner note has been reviewed by physician. Signing provider agrees with the documented findings, assessment, and plan of care. Objective - Vital Signs Vital signs: Vital Signs Temp 97.9 F 11/02/18 08:03 Pulse 57 L 11/02/18 08:03 Resp 18 11/02/18 08:03 BP 204/75 11/02/18 08:03 Pulse Ox 98 11/02/18 08:03 Intake & Output 11/01/18 11/02/18 11/02/18 18:59 06:59 18:59 Intake Total 100 1080 Balance 100 1080 Weight 63.957 kg Intake: IV 100 Intake, IV Titration 600 Amount Sodium Chloride 0.9% 1, 600 000 ml @ 75 mls/hr IV . [id number] [facility] Rx#:[id number] Oral 480 Other: Voiding Method Toilet Toilet # Voids 3 1 - Labs CBC & Chem 7: 11/01/18 08:26 11/01/18 08:26 Labs: Abnormal Lab Results - Last 24 Hours (Table) 11/01/18 11/01/18 Range/Units 08:26 08:26 RBC 3.39 L (3.80-5.40) m/uL Hgb 10.9 L (11.4-16.0) gm/dL Hct 33.6 L (34.0-46.0) % RDW 16.7 H (11.5-15.5) % Chloride 111 H (98-107) mmol/L Total Protein 5.0 L (6.3-8.2) g/dL Albumin 2.7 L (3.5-5.0) g/dL Microbiology - Last 24 Hours (Table) 10/30/18 23:10 Urine Culture - Preliminary Urine,Clean Catch Gram Neg Bacilli
[2018-11-02 10:03] LABS: Albumin 3.1 g/dL (3.5-5.0); Calcium 9.7 mg/dL (8.4-10.2); Potassium 3.8 mmol/L (3.5-5.1); Total Bilirubin 0.3 mg/dL (0.2-1.3); Total Protein 5.7 g/dL (6.3-8.2)
[2018-11-02] MEDS: HYDROcodone/APAP 7.5-325MG 1 EACH TAB PO PRN ×3 (10:20→22:09)
--- NOTE | 2018-11-02 11:35 | P.PN ---
Subjective Progress Note Date: 11/02/18 Principal diagnosis: Abdominal pain and abnormal CT thickened duodenum Status post EGD yesterday findings of moderate duodenitis moderate gastritis and hiatal hernia biopsies pending. Feels well. Denies abdominal pain. Objective - Vital Signs Vital signs: Vital Signs Temp 97.9 F 11/02/18 08:03 Pulse 57 L 11/02/18 08:03 Resp 18 11/02/18 08:03 BP 177/74 11/02/18 10:03 Pulse Ox 98 11/02/18 08:03 Intake & Output 11/01/18 11/02/18 11/02/18 18:59 06:59 18:59 Intake Total 100 1080 Balance 100 1080 Weight 63.957 kg Intake: IV 100 Intake, IV Titration 600 Amount Sodium Chloride 0.9% 1, 600 000 ml @ 75 mls/hr IV . [id number] [facility] Rx#:[id number] Oral 480 Other: Voiding Method Toilet Toilet Toilet # Voids 3 1 - Exam General appearance: The patient is alert, oriented, in no acute distress. HET: Head is normocephalic and atraumatic. Pupils are equal and reactive. Oropharynx is clear without lesions. Neck: Supple without lymphadenopathy. Trachea midline. Heart: S1 S2. Regular rate and rhythm. Lungs: No crackles or wheezes are heard. Abdomen: Soft, nontender, nondistended with bowel sounds. No peritoneal signs. No palpable organomegaly or masses. Extremities: Normal skin color and turgor. No cyanosis, rash, ulceration, clubbing, or edema. Radial and pedal pulses are 2/4 bilaterally. Neurological: No focal deficits. Strength and sensation are grossly intact. - Labs CBC & Chem 7: 11/02/18 08:51 11/02/18 08:51 Labs: Abnormal Lab Results - Last 24 Hours (Table) 11/02/18 11/02/18 Range/Units 08:51 08:51 MCV 100.7 H (80.0-100.0) fL RDW 17.1 H (11.5-15.5) % Chloride 110 H (98-107) mmol/L Glucose 104 H (74-99) mg/dL Total Protein 5.7 L (6.3-8.2) g/dL Albumin 3.1 L (3.5-5.0) g/dL Microbiology - Last 24 Hours (Table) 10/30/18 23:10 Urine Culture - Final Urine,Clean Catch Escherichia coli Assessment and Plan (1) Duodenitis Narrative/Plan: Status post EGD Current Visit: Yes Status: Acute Code(s): K29.80 - DUODENITIS WITHOUT BLEEDING SNOMED Code(s): 43315756 (2) Abdominal pain Current Visit: Yes Status: Acute Code(s): R10.9 - UNSPECIFIED ABDOMINAL PAIN SNOMED Code(s): 45916583 Plan: 1. Protonix 40 mg twice daily. Light diet as tolerated. Agreeable for discharge from a GI standpoint. Follow-up in office in 2-3 weeks. Assessment and plan a care discussed with Dr. Zazueta
[2018-11-02] MEDS: CHOLECALCIFEROL 1,000 UNIT TAB PO SCH (12:28)
[2018-11-02] MEDS ORDERED: LOSARTAN 50 MG TAB PO STA (14:10)
--- NOTE | 2018-11-02 14:36 | P.PN ---
Subjective Progress Note Date: 11/02/18 Vilma Costa is a 73-year-old female who presented to [facility] with a chief complaint of abdominal pain and vomiting patient stated that her symptoms started about 4 weeks ago and has been worsening her pain is mostly in the left lower quadrant she was evaluated in the emergency room and had a computed tomography scan of the abdomen and pelvis that revealed evidence of duodenitis and diverticulosis without evidence of diverticulitis she was started on IV Protonix and was admitted to medical floor and gastroenterology consultation was requested. Patient stated that she had hernia surgery in March 2018, she also had previous history of lap band surgery in 2000 Currently patient is feeling better her abdominal pain has improved overall intake has resolved patient is nothing by mouth at this time There is no fever or chills no headache or dizziness no chest pain no shortness of breath no cough and no urinary symptoms On 11/01/2018 patient's alert and oriented 3 with comfortably in bed. Patient reports abdominal pain has improved. Patient denies chest pain or shortness of breath. Patient denies nausea vomiting or diarrhea. Patient denies any urinary burning or frequency. Patient will undergo EGD today On 11/02/2017 patient is alert and oriented 3. Patient underwent EGD yesterday showing duodenitis moderate gastritis and a hiatal hernia. Patient's blood pressure also high. Patient had episode of blood pressure in the 200s throughout night. Patient blood pressure remains high after a.m. blood pressure meds. Will increase both Cozaar and Catapres at this time. We'll continue to evaluate patient throughout night. At this time patient denies chest pain or shortness of breath. Patient denies nausea vomiting or diarrhea. Denies any urinary burning or frequency Objective - Vital Signs Vital signs: Vital Signs Temp 98.1 F 11/02/18 13:00 Pulse 58 L 11/02/18 13:00 Resp 18 11/02/18 13:00 BP 186/91 11/02/18 13:57 Pulse Ox 95 11/02/18 13:00 Intake & Output 11/01/18 11/02/18 11/02/18 18:59 06:59 18:59 Intake Total 100 1080 Balance 100 1080 Weight 63.957 kg Intake: IV 100 Intake, IV Titration 600 Amount Sodium Chloride 0.9% 1, 600 000 ml @ 75 mls/hr IV . [id number] [facility] Rx#:[id number] Oral 480 Other: Voiding Method Toilet Toilet Toilet # Voids 3 1 - Exam Head normocephalic Neck supple Lungs clear to auscultation bilaterally no wheezing or crackles Heart regular rate and rhythm S1-S2, no rub or gallop Abdomen is soft nontender nondistended positive bowel sounds no hepatosplenomegaly Extremities no edema Neuro alert and orientated to 3 - Labs CBC & Chem 7: 11/02/18 08:51 11/02/18 08:51 Labs: Abnormal Lab Results - Last 24 Hours (Table) 11/02/18 11/02/18 Range/Units 08:51 08:51 MCV 100.7 H (80.0-100.0) fL RDW 17.1 H (11.5-15.5) % Chloride 110 H (98-107) mmol/L Glucose 104 H (74-99) mg/dL Total Protein 5.7 L (6.3-8.2) g/dL Albumin 3.1 L (3.5-5.0) g/dL Microbiology - Last 24 Hours (Table) 10/30/18 23:10 Urine Culture - Final Urine,Clean Catch Escherichia coli Assessment and Plan Assessment: #1 abdominal pain and vomiting for the last 4 weeks #2 evidence of duodenitis on computed tomography scan of the abdomen and pelvis done in the emergency room #3 previous history of ventral hernia with surgical repair in March 2018 #4 remote history of laparoscopic banding surgery in 2000 #5 underlying history of hypertension #6 underlying history of hyperlipidemia #7 underlying history of hypothyroidism #8 underlying history of depression with anxiety #9 urinary tract infection. Urine culture ordered. Patient maintained on Rocephin At this time medication reviewed and reordered, EGD completed showing moderate duodenitis, moderate gastritis and hiatal hernia , patient has been cleared for discharge from GI services patient to continue Protonix 40 mg daily and follow-up with GI services in 2-3 weeks Patient also seen by surgical services, patient has been cleared for discharge from surgical services Patient having elevated blood pressures in the 200s. Add Lovenox subcu for DVT prophylaxis Catapress has been increased to twice a day Cozaar has been increased 200 mg daily we'll continue to monitor blood pressure for the next 24 hours possible DC tomorrow I performed an examination of the patient and discussed their management with the Nurse Practitioner. I have reviewed the Nurse Practitioner's notes and agree with the documented findings and plan of care
[2018-11-02] MEDS: cloNIDine HCL 0.1 MG TAB PO SCH (22:07)
[2018-11-02] MEDS: PRAVASTATIN SODIUM 40 MG TAB PO SCH (22:07)
[2018-11-02] MEDS: amLODIPine 5 MG TAB PO SCH (23:26)
[2018-11-02] MEDS: HYDROmorphone 0.5 MG/0.5 ML SYRINGE IVP PRN (23:27)
[2018-11-03 05:23] VITALS: RESP 16
[2018-11-03] MEDS: LEVOTHYROXINE 25 MCG TAB PO SCH (05:55)
[2018-11-03] MEDS: SODIUM CHLORIDE 0.9% 1,000 ML IV SCH (08:22)
[2018-11-03] MEDS: busPIRone HCl 10 MG TAB PO SCH (08:23)
[2018-11-03] MEDS: OLANZapine 10 MG TAB PO SCH (08:23)
[2018-11-03] MEDS: FLUoxetine HCL 20 MG CAP PO SCH (08:28)
[2018-11-03] MEDS: POTASSIUM CHLORIDE ER 10 MEQ TAB.ER.PRT PO SCH (08:28)
[2018-11-03] MEDS: CHOLECALCIFEROL 1,000 UNIT TAB PO SCH (08:28)
[2018-11-03] MEDS: PANTOPRAZOLE 40 MG TABLET PO SCH (08:28)
[2018-11-03] MEDS: amLODIPine 5 MG TAB PO SCH (08:28)
[2018-11-03] MEDS: cloNIDine HCL 0.1 MG TAB PO SCH (08:28)
[2018-11-03] MEDS: PATIENT'S OWN (Mirabegron [Myrbetriq] 50 MG) PO SCH (08:29)
[2018-11-03] MEDS: ENOXAPARIN 40 MG/0.4 ML SYRINGE SQ SCH (08:29)
[2018-11-03] MEDS: HYDROcodone/APAP 7.5-325MG 1 EACH TAB PO PRN ×2 (08:40→14:45)
[2018-11-03] MEDS ORDERED: LOSARTAN 50 MG TAB PO SCH (09:00)
[2018-11-03 09:08] LABS: Anisocytosis Slight; Basophils # (A) 0.1 k/uL (0-0.2); Basophils % (A) 1 %; Eosinophils # (A) 0.2 k/uL (0-0.7); Eosinophils % (A) 2 %; HCT 37.7 % (34.0-46.0); HGB 12.1 gm/dL (11.4-16.0); Lymphocytes # (A) 1.9 k/uL (1.0-4.8); Lymphocytes % (A) 31 %; MCV 99.9 fL (80.0-100.0); Macrocytosis Slight; Mean Platelet Volume 6.7; Monocytes # (A) 0.5 k/uL (0-1.0); Monocytes % (A) 7 %; Neutrophils # (A) 3.4 k/uL (1.3-7.7); Neutrophils % (A) 55 %; Platelet Count 242 k/uL (150-450); RBC 3.78 m/uL (3.80-5.40); WBC 6.2 k/uL (3.8-10.6)
[2018-11-03 09:36] LABS: Albumin 3.3 g/dL (3.5-5.0); Calcium 9.8 mg/dL (8.4-10.2); Potassium 3.7 mmol/L (3.5-5.1); Total Bilirubin 0.4 mg/dL (0.2-1.3); Total Protein 5.7 g/dL (6.3-8.2)
[2018-11-03 10:37] VITALS: PULSE 56
[2018-11-03 11:39] VITALS: BP 123/78; TEMP 97.3
--- NOTE | 2018-11-03 13:35 | P.DS ---
Providers Date of admission: 11/02/18 14:11 Expected date of discharge: 11/03/18 Attending physician: Familia Wolf Consults: 10/31/18 10:19 Consult Physician Routine Consulting Provider: Gerson Segovia Consult Reason/Comments: abdominal pain, vomiting, history of lap band Do you want consulting provider notified?: Yes Primary care physician: Mehnaz [facility] Hospital Course: Discharge diagnosis #1 abdominal pain and vomiting for the last 4 weeks #2 evidence of duodenitis on computed tomography scan of the abdomen and pelvis done in the emergency room #3 previous history of ventral hernia with surgical repair in March 2018 #4 remote history of laparoscopic banding surgery in 2000 #5 underlying history of hypertension #6 underlying history of hyperlipidemia #7 underlying history of hypothyroidism #8 underlying history of depression with anxiety #9 urinary tract infection. Urine culture currently growing E. coli. Patient will be DC'd on Cipro for 5 more days At this time medication reviewed and reordered, EGD completed showing moderate duodenitis, moderate gastritis and hiatal hernia , patient has been cleared for discharge from GI services patient to continue Protonix 40 mg daily and follow-up with GI services in 2-3 weeks Patient also seen by surgical services, patient has been cleared for discharge from surgical services Patient having elevated blood pressures in the 200s. Norvasc has been added. Coreg and Cozaar has been increased. Blood pressure 123/78 Hospital course Vilma Costa is a 73-year-old female who presented to [facility] with a chief complaint of abdominal pain and vomiting patient stated that her symptoms started about 4 weeks ago and has been worsening her pain is mostly in the left lower quadrant she was evaluated in the emergency room and had a computed tomography scan of the abdomen and pelvis that revealed evidence of duodenitis and diverticulosis without evidence of diverticulitis she was started on IV Protonix and was admitted to medical floor and gastroenterology consultation was requested. Patient stated that she had hernia surgery in March 2018, she also had previous history of lap band surgery in 2000 Currently patient is feeling better her abdominal pain has improved overall intake has resolved patient is nothing by mouth at this time There is no fever or chills no headache or dizziness no chest pain no shortness of breath no cough and no urinary symptoms On 11/01/2018 patient's alert and oriented 3 with comfortably in bed. Patient reports abdominal pain has improved. Patient denies chest pain or shortness of breath. Patient denies nausea vomiting or diarrhea. Patient denies any urinary burning or frequency. Patient will undergo EGD today On 11/02/2017 patient is alert and oriented 3. Patient underwent EGD yesterday showing duodenitis moderate gastritis and a hiatal hernia. Patient's blood pressure also high. Patient had episode of blood pressure in the 200s throughout night. Patient blood pressure remains high after a.m. blood pressure meds. Will increase both Cozaar and Catapres at this time. We'll continue to evaluate patient throughout night. At this time patient denies chest pain or shortness of breath. Patient denies nausea vomiting or diarrhea. Denies any urinary burning or frequency On 11/03/2018 patient is alert and oriented 3. Patient is eager to go home. Blood pressure well-controlled improved. Cozaar and Catapres has been increased. Norvasc has been added. Patient advised to monitor blood pressure at home and to follow-up with her PCP for further management. Patient also to follow-up with GI services. At this time patient denies chest pain or shortness breath. Patient denies diarrhea. Patient denies any urinary burning or frequency. I performed an examination of the patient and discussed their management with the Nurse Practitioner. I have reviewed the Nurse Practitioner's notes and agree with the documented findings and plan of care Patient Condition at Discharge: Stable Plan - Discharge Summary Discharge Rx Participant: No New Discharge Prescriptions: New amLODIPine [Norvasc] 2.5 mg PO DAILY 30 Days #30 tab Ciprofloxacin HCl [Cipro] 250 mg PO Q12HR 5 Days #10 tablet cloNIDine HCL [Catapres] 0.1 mg PO BID 30 Days #60 tab Dicyclomine [Bentyl] 10 mg PO QID PRN 30 Days #90 cap PRN Reason: Gi Upset Losartan [Cozaar] 100 mg PO DAILY 30 Days #30 tab Pantoprazole [Protonix] 40 mg PO AC-BID 30 Days #60 tablet.dr Continue Aspirin EC [Ecotrin] 325 mg PO DAILY Pravastatin Sodium [Pravachol] 40 mg PO HS OLANZapine [ZyPREXA] 10 mg PO DAILY Levothyroxine Sodium [Synthroid] 25 mcg PO DAILY HYDROcodone/APAP 7.5-325MG [[place] 7.5-325] 7.5 mg PO QID PRN PRN Reason: Pain busPIRone HCl [Buspar] 10 mg PO BID Potassium Chloride [Klor-Con 10] 10 meq PO BID Cholecalciferol [Vitamin D3] 1,000 unit PO DAILY Mirabegron [Myrbetriq] 50 mg PO DAILY FLUoxetine HCL [PROzac] 60 mg PO DAILY Gabapentin [Neurontin] 300 mg PO TID Discontinued Losartan Potassium [Cozaar] 50 mg PO DAILY cloNIDine HCL [Catapres] 0.1 mg PO DAILY Discharge Medication List Aspirin EC [Ecotrin] 325 mg PO DAILY 07/28/16 [History] HYDROcodone/APAP 7.5-325MG [[place] 7.5-325] 7.5 mg PO QID PRN 02/16/18 [History] Levothyroxine Sodium [Synthroid] 25 mcg PO DAILY 02/16/18 [History] OLANZapine [ZyPREXA] 10 mg PO DAILY 02/16/18 [History] Pravastatin Sodium [Pravachol] 40 mg PO HS 02/16/18 [History] busPIRone HCl [Buspar] 10 mg PO BID 02/16/18 [History] Potassium Chloride [Klor-Con 10] 10 meq PO BID 03/11/18 [History] Cholecalciferol [Vitamin D3] 1,000 unit PO DAILY 09/19/18 [History] Mirabegron [Myrbetriq] 50 mg PO DAILY 09/19/18 [History] FLUoxetine HCL [PROzac] 60 mg PO DAILY 10/31/18 [History] Gabapentin [Neurontin] 300 mg PO TID 11/02/18 [History] Ciprofloxacin HCl [Cipro] 250 mg PO Q12HR 5 Days #10 tablet 11/03/18 [Rx] Dicyclomine [Bentyl] 10 mg PO QID PRN 30 Days #90 cap 11/03/18 [Rx] Losartan [Cozaar] 100 mg PO DAILY 30 Days #30 tab 11/03/18 [Rx] Pantoprazole [Protonix] 40 mg PO AC-BID 30 Days #60 tablet. 11/03/18 [Rx] amLODIPine [Norvasc] 2.5 mg PO DAILY 30 Days #30 tab 11/03/18 [Rx] cloNIDine HCL [Catapres] 0.1 mg PO BID 30 Days #60 tab 11/03/18 [Rx] Follow up Appointment(s)/Referral(s): Laura Cesar MD [STAFF PHYSICIAN] - 11/08/18 11:45 am Mehnaz Beck DO [Primary Care Provider] - 1-2 days Activity/Diet/Wound Care/Special Instructions: Activity as tolerated light diet as tolerated Discharge Disposition: HOME SELF-CARE
== END 2018-11-03 14:50 | disposition home or self-care (01) | DRG 392 ==
LOC: EC 20:42 → 3NMEDONC 10-31 00:16 → OBSVTOIN 11-02 14:11
PROVIDERS: ADMIT Internal Medicine; ATTEND Internal Medicine
PROC: 0DB98ZX Excision of Duodenum, Via Natural or Artificial Opening Endoscopic, Diagnostic (ICD-10-PCS; principal; 2018-11-02)
PROC: 0DB78ZX Excision of Stomach, Pylorus, Via Natural or Artificial Opening Endoscopic, Diagnostic (ICD-10-PCS; principal; 2018-11-02)
DX: K29.80 Duodenitis without bleeding (principal); N39.0 Urinary tract infection, site not specified; K29.70 Gastritis, unspecified, without bleeding; E03.9 Hypothyroidism, unspecified; E11.9 Type 2 diabetes mellitus without complications; E78.5 Hyperlipidemia, unspecified; F17.200 Nicotine dependence, unspecified, uncomplicated; F32.9 Major depressive disorder, single episode, unspecified; F41.9 Anxiety disorder, unspecified; I10 Essential (primary) hypertension; K44.9 Diaphragmatic hernia without obstruction or gangrene; K57.30 Diverticulosis of large intestine without perforation or abscess without bleeding; K58.0 Irritable bowel syndrome with diarrhea; Z79.82 Long term (current) use of aspirin; Z79.890 Hormone replacement therapy; Z79.899 Other long term (current) drug therapy; Z98.84 Bariatric surgery status; B96.20 Unspecified Escherichia coli [E. coli] as the cause of diseases classified elsewhere; Z90.49 Acquired absence of other specified parts of digestive tract
CPT/HCPCS: 36415; 43239; 74177; 80053; 81001; 82150; 83605; 83690; 84484; 85025; 87077; 87086; 87186; 88305; 93005; 96361; 96365; 96374; 96375; 99285

== ENCOUNTER 2018-12-11 12:50 | Emergency (ER) | payer MEDICARE ==
[2018-12-11] MEDS ORDERED: SODIUM CHLORIDE 0.9% 1,000 ML IV STA (13:03)
[2018-12-11] MEDS ORDERED: ONDANSETRON 4 MG/2 ML VIAL IVP STA ×2 (13:21→16:17)
[2018-12-11] MEDS ORDERED: MORPHINE SULFATE 2 MG/ML SYRINGE IVP ONE ×2 (13:21→15:44)
--- NOTE | 2018-12-11 13:24 | ED ---
Abdominal Pain HPI - General Source: patient, family, RN notes reviewed Mode of arrival: wheelchair Limitations: no limitations <Tyson De Los Santos - Last Filed: 12/11/18 15:45> <Malvin Finney - Last Filed: 12/11/18 20:36> - General Chief Complaint: Abdominal Pain Stated Complaint: Abd pain Time Seen by Provider: 12/11/18 13:02 - History of Present Illness Initial Comments: 73-year-old female presents emergency Department with chief complaint of abdominal pain. Patient states started yesterday afternoon. Patient states pain has been persistent and worsening. Patient does admit to nausea and vomiting. Patient also states that she has diarrhea which is normal with her IBS with diarrhea. Patient denies any melena or hematochezia. Denies any fevers or chills. Patient states that she was recently admitted for diverticulitis states pain is little different but is concerned about recurrence. Patient states that she's had multiple abdominal surgeries including LAP-BAND, cholecystectomy, appendectomy and hernia repair. Patient states her surgeon is Dr. Butler. Patient has no dysuria no hematuria. Denies fevers or chills. (Tyson De Los Santos) - Related Data Home Medications Medication Instructions Recorded Confirmed Aspirin EC [Ecotrin] 325 mg PO DAILY 07/28/16 10/31/18 HYDROcodone/APAP 7.5-325MG [[place] 7.5 mg PO QID PRN 02/16/18 10/31/18 7.5-325] Levothyroxine Sodium [Synthroid] 25 mcg PO DAILY 02/16/18 10/31/18 OLANZapine [ZyPREXA] 10 mg PO DAILY 02/16/18 10/31/18 Pravastatin Sodium [Pravachol] 40 mg PO HS 02/16/18 10/31/18 busPIRone HCl [Buspar] 10 mg PO BID 02/16/18 10/31/18 Potassium Chloride [Klor-Con 10] 10 meq PO BID 03/11/18 10/31/18 Cholecalciferol [Vitamin D3] 1,000 unit PO DAILY 09/19/18 10/31/18 Mirabegron [Myrbetriq] 50 mg PO DAILY 09/19/18 10/31/18 FLUoxetine HCL [PROzac] 60 mg PO DAILY 10/31/18 10/31/18 Gabapentin [Neurontin] 300 mg PO TID 11/02/18 11/02/18 Previous Rx's Medication Instructions Recorded Ciprofloxacin HCl [Cipro] 250 mg PO Q12HR 5 Days #10 tablet 11/03/18 Dicyclomine [Bentyl] 10 mg PO QID PRN 30 Days #90 cap 11/03/18 Losartan [Cozaar] 100 mg PO DAILY 30 Days #30 tab 11/03/18 Pantoprazole [Protonix] 40 mg PO AC-BID 30 Days #60 11/03/18 tablet. amLODIPine [Norvasc] 2.5 mg PO DAILY 30 Days #30 tab 11/03/18 cloNIDine HCL [Catapres] 0.1 mg PO BID 30 Days #60 tab 11/03/18 Ondansetron Odt [Zofran Odt] 4 mg PO Q8HR PRN #10 tab 12/11/18 Allergies Allergy/AdvReac Type Severity Reaction Status Date / Time No Known Allergies Allergy Verified 12/11/18 12:57 Review of Systems ROS Other: All systems not noted in ROS Statement are negative. <Tyson De Los Santos - Last Filed: 12/11/18 15:45> ROS Other: All systems not noted in ROS Statement are negative. <Malvin Finney - Last Filed: 12/11/18 20:36> ROS Statement: Those systems with pertinent positive or pertinent negative responses have been documented in the HPI. Past Medical History Past Medical History: Diabetes Mellitus, Hyperlipidemia, Hypertension, Thyroid D isorder Additional Past Medical History / Comment(s): Type 2 DM (resolved), Hypothyroidism, IBS; shingles to left shoulder/arm finished treatment 10/29/18, started 8wks ago History of Any Multi-Drug Resistant Organisms: None Reported Past Surgical History: Appendectomy, Bariatric Surgery, Cholecystectomy, Hernia Repair, Tonsillectomy, Tubal Ligation Additional Past Surgical History / Comment(s): lap band placed 2000(??) Past Anesthesia/Blood Transfusion Reactions: No Reported Reaction Additional Past Anesthesia/Blood Transfusion Reaction / Comment(s): No blood transfusion to date Past Psychological History: Anxiety, Depression Smoking Status: Current every day smoker Past Alcohol Use History: None Reported Past Drug Use History: None Reported <Tyson De Los Santos - Last Filed: 12/11/18 15:45> General Exam Limitations: no limitations General appearance: alert, in no apparent distress Head exam: Present: atraumatic, normocephalic, normal inspection Eye exam: Present: normal appearance, PERRL, EOMI. Absent: scleral icterus, conjunctival injection, periorbital swelling ENT exam: Present: normal exam, normal oropharynx, mucous membranes moist Neck exam: Present: normal inspection. Absent: tenderness, meningismus, lymphadenopathy Respiratory exam: Present: normal lung sounds bilaterally. Absent: respiratory distress, wheezes, rales, rhonchi, stridor Cardiovascular Exam: Present: regular rate, normal rhythm, normal heart sounds. Absent: systolic murmur, diastolic murmur, rubs, gallop, clicks GI/Abdominal exam: Present: soft, tenderness (Mild mid abdominal to epigastric), normal bowel sounds, hernia. Absent: distended, guarding, rebound, rigid Back exam: Absent: CVA tenderness (R), CVA tenderness (L) Skin exam: Present: warm, dry, intact, normal color. Absent: rash <Tyson De Los Santos - Last Filed: 12/11/18 15:45> Course Vital Signs 12/11/18 12/11/18 12/11/18 12:57 15:10 16:14 Temperature 98.1 F 97.8 F 97.9 F Pulse Rate 91 79 78 Respiratory 18 16 16 Rate Blood Pressure 129/86 123/74 130/78 O2 Sat by Pulse 98 97 96 Oximetry Medical Decision Making - Lab Data Result diagrams: 12/11/18 13:45 12/11/18 13:45 <Tyson De Los Santos - Last Filed: 12/11/18 15:45> - Lab Data Result diagrams: 12/11/18 13:45 12/11/18 13:45 <Malvin Finney - Last Filed: 12/11/18 20:36> - Medical Decision Making 73-year-old female was on for upper abdominal pain. Patient had laboratory, CT CT shows movement of her lab pain. Case discussed with Dr. Pichardo in her surgeon who recommended if she is tolerating orals that she can follow-up on Thursday at the bariatric clinic. Return parameters were discussed patient will be discharged as she is tolerating oral intake. (Tyson De Los Santos) 73-year-old female presenting with dry heaving, abdominal pain. Plan. Patient reevaluated, nonsurgical abdomen, no rebound or guarding. CT is obtained, shows concern for prolapse of the patient's lap band. I did discuss case with patient's surgeon who is familiar with the patient, Dr. Segovia, advisedclose outpatient follow-up. Did offer patient admission for further symptomatic control, she declined, states she would rather be discharged home and will follow up on Thursday which is 2 days from now. (Malvin Finney) - Lab Data Lab Results 12/11/18 12/11/18 12/11/18 Range/Units 13:45 13:45 13:45 WBC 12.0 H (3.8-10.6) k/uL RBC 4.86 (3.80-5.40) m/uL Hgb 15.2 D (11.4-16.0) gm/dL Hct 45.0 (34.0-46.0) % MCV 92.5 D (80.0-100.0) fL MCH 31.3 (25.0-35.0) pg MCHC 33.8 (31.0-37.0) g/dL RDW 15.7 H (11.5-15.5) % Plt Count 188 (150-450) k/uL Neutrophils % 74 % Lymphocytes % 16 % Monocytes % 7 % Eosinophils % 1 % Basophils % 0 % Neutrophils # 8.8 H (1.3-7.7) k/uL Lymphocytes # 2.0 (1.0-4.8) k/uL Monocytes # 0.9 (0-1.0) k/uL Eosinophils # 0.1 (0-0.7) k/uL Basophils # 0.1 (0-0.2) k/uL Sodium 136 L (137-145) mmol/L Potassium 3.6 (3.5-5.1) mmol/L Chloride 102 (98-107) mmol/L Carbon Dioxide 22 (22-30) mmol/L Anion Gap 12 mmol/L BUN 11 (7-17) mg/dL Creatinine 0.85 (0.52-1.04) mg/dL Est GFR (CKD-EPI)AfAm 78 (>60 ml/min/1.73 sqM) Est GFR (CKD-EPI)NonAf 68 (>60 ml/min/1.73 sqM) Glucose 162 H (74-99) mg/dL Plasma Lactic Acid [place] 1.9 (0.7-2.0) mmol/L Calcium 11.0 H (8.4-10.2) mg/dL Total Bilirubin 0.7 (0.2-1.3) mg/dL AST 34 (14-36) U/L ALT 27 (9-52) U/L Alkaline Phosphatase 105 (38-126) U/L Total Protein 7.3 (6.3-8.2) g/dL Albumin 4.4 (3.5-5.0) g/dL Amylase 70 (30-110) U/L Lipase 80 (23-300) U/L Urine Color Urine Appearance (Clear) Urine pH (5.0-8.0) Ur Specific [place] (1.001-1.035) Urine Protein (Negative) Urine Glucose (UA) (Negative) Urine Ketones (Negative) Urine Blood (Negative) Urine Nitrite (Negative) Urine Bilirubin (Negative) Urine Urobilinogen (<2.0) mg/dL Ur Leukocyte Esterase (Negative) Urine RBC (0-5) /hpf Urine WBC (0-5) /hpf Ur Squamous Epith Cells (0-4) /hpf Urine Bacteria (None) /hpf Hyaline Casts (0-2) /lpf Urine Mucus (None) /hpf 12/11/18 Range/Units 13:54 WBC (3.8-10.6) k/uL RBC (3.80-5.40) m/uL Hgb (11.4-16.0) gm/dL Hct (34.0-46.0) % MCV (80.0-100.0) fL MCH (25.0-35.0) pg MCHC (31.0-37.0) g/dL RDW (11.5-15.5) % Plt Count (150-450) k/uL Neutrophils % % Lymphocytes % % Monocytes % % Eosinophils % % Basophils % % Neutrophils # (1.3-7.7) k/uL Lymphocytes # (1.0-4.8) k/uL Monocytes # (0-1.0) k/uL Eosinophils # (0-0.7) k/uL Basophils # (0-0.2) k/uL Sodium (137-145) mmol/L Potassium (3.5-5.1) mmol/L Chloride (98-107) mmol/L Carbon Dioxide (22-30) mmol/L Anion Gap mmol/L BUN (7-17) mg/dL Creatinine (0.52-1.04) mg/dL Est GFR (CKD-EPI)AfAm (>60 ml/min/1.73 sqM) Est GFR (CKD-EPI)NonAf (>60 ml/min/1.73 sqM) Glucose (74-99) mg/dL Plasma Lactic Acid [place] (0.7-2.0) mmol/L Calcium (8.4-10.2) mg/dL Total Bilirubin (0.2-1.3) mg/dL AST (14-36) U/L ALT (9-52) U/L Alkaline Phosphatase (38-126) U/L Total Protein (6.3-8.2) g/dL Albumin (3.5-5.0) g/dL Amylase (30-110) U/L Lipase (23-300) U/L Urine Color Yellow Urine Appearance Cloudy H (Clear) Urine pH 6.5 (5.0-8.0) Ur Specific [place] 1.018 (1.001-1.035) Urine Protein 2+ H (Negative) Urine Glucose (UA) Negative (Negative) Urine Ketones 1+ H (Negative) Urine Blood Negative (Negative) Urine Nitrite Negative (Negative) Urine Bilirubin Negative (Negative) Urine Urobilinogen 2.0 (<2.0) mg/dL Ur Leukocyte Esterase Small H (Negative) Urine RBC 7 H (0-5) /hpf Urine WBC 11 H (0-5) /hpf Ur Squamous Epith Cells 20 H (0-4) /hpf Urine Bacteria Rare H (None) /hpf Hyaline Casts 20 H (0-2) /lpf Urine Mucus Rare H (None) /hpf Disposition Is patient prescribed a controlled substance at d/c from ED?: No Time of Disposition: 15:46 <Tyson De Los Santos M - Last Filed: 12/11/18 15:45> <Malvin Finney - Last Filed: 12/11/18 20:36> Clinical Impression: Hx of laparoscopic gastric banding, Abdominal pain Disposition: HOME SELF-CARE Condition: Stable Instructions (If sedation given, give patient instructions): Abdominal Pain (ED) Additional Instructions: Follow-up with Dr. Segovia in the bariatric clinic on Thursday.Please return to the Emergency Department if symptoms worsen or any other concerns. Prescriptions: Ondansetron Odt [Zofran Odt] 4 mg PO Q8HR PRN #10 tab PRN Reason: Nausea Referrals: Mehnaz Beck DO [Primary Care Provider] - 1-2 days Gerson Segovia MD [STAFF PHYSICIAN] - 1-2 days
[2018-12-11 14:18] LABS: Appearance,Urine Cloudy (Clear); Bacteria,Urine Rare /hpf; Bilirubin,Urine Negative (Negative); Blood,Urine Negative (Negative); Color,Urine Yellow; Glucose,Urine (UA) Negative (Negative); Hyaline Casts,Urine 20 /lpf (0-2); Ketones,Urine 1+ (Negative); Leukocyte Esterase,Urine Small (Negative); Mucus,Urine Rare /hpf; Nitrite,Urine Negative (Negative); PH, Urine 6.5 (5.0-8.0); Protein,Urine 2+ (Negative); RBC,Urine 7 /hpf (0-5); Specific Gravity,Urine 1.018 (1.001-1.035); Squamous Epithelial Cell,Urine 20 /hpf (0-4); WBC,Urine 11 /hpf (0-5)
[2018-12-11 14:19] LABS: Basophils # (A) 0.1 k/uL (0-0.2); Basophils % (A) 0 %; Eosinophils # (A) 0.1 k/uL (0-0.7); Eosinophils % (A) 1 %; Lymphocytes % (A) 16 %; MCH 31.3 pg (25.0-35.0); MCHC 33.8 g/dL (31.0-37.0); Mean Platelet Volume 7.8; Monocytes # (A) 0.9 k/uL (0-1.0); Monocytes % (A) 7 %; Neutrophils # (A) 8.8 k/uL (1.3-7.7); Neutrophils % (A) 74 %; Platelet Count 188 k/uL (150-450); RBC 4.86 m/uL (3.80-5.40); RDW 15.7 % (11.5-15.5)
[2018-12-11 14:20] LABS: Albumin 4.4 g/dL (3.5-5.0); Potassium 3.6 mmol/L (3.5-5.1); Total Bilirubin 0.7 mg/dL (0.2-1.3); Total Protein 7.3 g/dL (6.3-8.2)
[2018-12-11 14:23] LABS: HGB 15.2 gm/dL (11.4-16.0); MCV 92.5 fL (80.0-100.0)
--- NOTE | 2018-12-11 15:03 | CT ---
EXAMINATION TYPE: CT abdomen pelvis w con DATE OF EXAM: 12/11/2018 COMPARISON: Abdomen pain INDICATION: Generalized abdominal pain DLP: 638.9 mGycm, Automated exposure control for dose reduction was used. CONTRAST: 100 mL of Isovue 300. Study performed without Oral Contrast TECHNIQUE: Axial images were obtained from above the diaphragm to the pubic rami in the axial plane a t 5 mm thick sections. Reconstructed images are reviewed on the computer in the coronal plane. FINDINGS: Limited CT sections are obtained the lung bases. The lung bases are clear. There is a hiatal hernia present. This may be some prolapse stomach through the lap band. Upper GI may be required to differe ntiate from dilated distal esophagus. CT ABDOMEN: Liver: Normal Spleen: Normal Pancreas: Atrophic Adrenal glands: The adrenal glands are normal. Gallbladder: Surgically absent Kidneys: No masses are evident. No hydronephrosis is present. There is a 1.4 cm cyst on the superio r posterior right kidney measuring 6 Hounsfield units. There is a cyst measuring 12 units and 3.3 cm along the anterior inferior right kidney. Delayed images were obtained through the kidneys, which re main unremarkable. Aorta: Vascular calcification is within the aorta. Inferior vena cava: Normal. CT PELVIS: Loops of bowel within the abdomen and pelvis are normal. There are loops of bowel which are incom pletely distended or lack oral contrast limiting their evaluation. Appendix: Not identified. No suspicious inflammatory changes or dilated tubular structures are eviden t. Urinary bladder: Normal. Genitourinary structures: Uterus appears normal. Adnexal regions are clear. Osseous structures: No suspicious lytic or sclerotic lesions. Facet hypertrophy is present especially on the left at L5-S1. Bilateral facet hypertrophy is present L4-5. IMPRESSIONS: 1. Bilateral renal cysts. 2. Patulous distal esophagus versus prolapsed stomach to the LAP-BAND. This has a similar appearance to prior examination. Upper GI may be required for additional evaluation. 3. Renal cysts
[2018-12-11 15:11] VITALS: RESP 16
[2018-12-11] MEDS ORDERED: Acetaminophen-Codeine 300-30mg TAB PO STA (15:44)
[2018-12-11] MEDS: ONDANSETRON 4 MG/2 ML VIAL IVP STA ×2 (16:14→16:17)
[2018-12-11 16:15] VITALS: BP 130/78; PULSE 78; TEMP 97.9
== END 2018-12-11 16:43 | disposition home or self-care (01) ==
LOC: EC 12:50
DX: R10.10 Upper abdominal pain, unspecified (principal); R10.816 Epigastric abdominal tenderness; R11.2 Nausea with vomiting, unspecified; R19.7 Diarrhea, unspecified; Z98.84 Bariatric surgery status; I10 Essential (primary) hypertension; E78.5 Hyperlipidemia, unspecified; E03.9 Hypothyroidism, unspecified; F41.9 Anxiety disorder, unspecified; F32.9 Major depressive disorder, single episode, unspecified; F17.200 Nicotine dependence, unspecified, uncomplicated; Z79.82 Long term (current) use of aspirin; Z79.890 Hormone replacement therapy; Z79.899 Other long term (current) drug therapy; Z90.49 Acquired absence of other specified parts of digestive tract
CPT/HCPCS: 36415; 80053; 82150; 83605; 83690; 85025; 81001; 87040; 74177; 99284; 96374; 96375; 96376 ×2; 96361; J2405; J2270; Q9967

== ENCOUNTER 2018-12-13 22:25 | Observation (INO) | payer MEDICARE ==
[2018-12-14] MEDS ORDERED: ONDANSETRON 4 MG/2 ML VIAL IVP STA (00:29)
[2018-12-14] MEDS ORDERED: SODIUM CHLORIDE 0.9% 1,000 ML IV STA ×2 (00:29)
[2018-12-14 01:15] LABS: Basophils % (A) 1 %; Eosinophils # (A) 0.1 k/uL (0-0.7); Eosinophils % (A) 2 %; HCT 40.2 % (34.0-46.0); HGB 13.3 gm/dL (11.4-16.0); Lymphocytes # (A) 1.3 k/uL (1.0-4.8); Lymphocytes % (A) 17 %; MCH 31.1 pg (25.0-35.0); MCHC 33.1 g/dL (31.0-37.0); Mean Platelet Volume 6.5; Monocytes # (A) 0.5 k/uL (0-1.0); Monocytes % (A) 6 %; Neutrophils # (A) 5.8 k/uL (1.3-7.7); Neutrophils % (A) 72 %; Platelet Count 211 k/uL (150-450); RBC 4.28 m/uL (3.80-5.40)
--- NOTE | 2018-12-14 01:58 | ED ---
Nausea/Vomiting/Diarrhea HPI - General Source: patient, RN notes reviewed, old records reviewed Mode of arrival: ambulatory Limitations: no limitations <Saba Rodas - Last Filed: 12/14/18 03:19> <Noel Corrales - Last Filed: 12/16/18 08:42> - General Chief complaint: Nausea/Vomiting/Diarrhea Stated complaint: Abd pain Time Seen by Provider: 12/14/18 00:16 - History of Present Illness Initial comments: Patient is a 73-year-old female presents emergency room today with nausea and vomiting for the past 4 days. She reports that she was seen in emergency department on 6 had a computed tomography scan. There is concern for lab and issue. She had a barium swallow on the eighth which was reviewed to be normal. Her surgeon is Dr. Crespo. She states she's had continuous started vomiting. No bloody emesis. (Saba Rodas) - Related Data Home Medications Medication Instructions Recorded Confirmed Aspirin EC [Ecotrin] 325 mg PO DAILY 07/28/16 12/15/18 HYDROcodone/APAP 7.5-325MG [[place] 7.5 mg PO QID PRN 02/16/18 12/15/18 7.5-325] Levothyroxine Sodium [Synthroid] 25 mcg PO DAILY 02/16/18 12/15/18 OLANZapine [ZyPREXA] 10 mg PO DAILY 02/16/18 12/15/18 Pravastatin Sodium [Pravachol] 40 mg PO HS 02/16/18 12/15/18 busPIRone HCl [Buspar] 10 mg PO BID 02/16/18 12/15/18 Potassium Chloride [Klor-Con 10] 10 meq PO BID 03/11/18 12/15/18 Cholecalciferol [Vitamin D3] 1,000 unit PO DAILY 09/19/18 12/15/18 FLUoxetine HCL [PROzac] 60 mg PO DAILY 10/31/18 12/15/18 Gabapentin [Neurontin] 300 mg PO TID 11/02/18 12/15/18 Losartan Potassium 100 mg PO DAILY 12/14/18 12/15/18 OLANZapine [ZyPREXA] 2.5 mg PO HS 12/14/18 12/15/18 Oxybutynin Chloride [Ditropan XL] 10 mg PO DAILY 12/14/18 12/15/18 Previous Rx's Medication Instructions Recorded Dicyclomine [Bentyl] 10 mg PO QID PRN 30 Days #90 cap 11/03/18 Pantoprazole [Protonix] 40 mg PO AC-BID 30 Days #60 11/03/18 tablet. Ondansetron Odt [Zofran ODT] 4 mg PO Q8HR PRN #10 tab 12/11/18 Cefuroxime Axetil [Ceftin] 500 mg PO BID #14 tab 12/14/18 amLODIPine [Norvasc] 5 mg PO DAILY #30 tab 12/14/18 Allergies Allergy/AdvReac Type Severity Reaction Status Date / Time ciprofloxacin [From Cipro] Allergy Rash/Hives Verified 12/14/18 07:37 Review of Systems ROS Other: All systems not noted in ROS Statement are negative. <Saba Rodas - Last Filed: 12/14/18 03:19> ROS Other: All systems not noted in ROS Statement are negative. <Noel Corrales - Last Filed: 12/16/18 08:42> ROS Statement: Those systems with pertinent positive or pertinent negative responses have been documented in the HPI. Past Medical History Past Medical History: Diabetes Mellitus, Hyperlipidemia, Hypertension, Thyroid Disorder Additional Past Medical History / Comment(s): Type 2 DM (resolved), Hypothyroidism, IBS; shingles to left shoulder/arm finished treatment 10/29/18, started 8wks ago History of Any Multi-Drug Resistant Organisms: None Reported Past Surgical History: Appendectomy, Bariatric Surgery, Cholecystectomy, Hernia Repair, Tonsillectomy, Tubal Ligation Additional Past Surgical History / Comment(s): lap band placed 2000(??) Past Anesthesia/Blood Transfusion Reactions: No Reported Reaction Additional Past Anesthesia/Blood Transfusion Reaction / Comment(s): No blood transfusion to date Past Psychological History: Anxiety, Depression Smoking Status: Current every day smoker Past Alcohol Use History: None Reported Past Drug Use History: None Reported <Saba Rodas - Last Filed: 12/14/18 03:19> General Exam Limitations: no limitations General appearance: alert, in no apparent distress Head exam: Present: atraumatic, normocephalic, normal inspection Eye exam: Present: normal appearance, PERRL, EOMI. Absent: scleral icterus, conjunctival injection, periorbital swelling ENT exam: Present: normal exam Neck exam: Present: normal inspection. Absent: tenderness, meningismus, lymphadenopathy Respiratory exam: Present: normal lung sounds bilaterally. Absent: respiratory distress, wheezes, rales, rhonchi, stridor Cardiovascular Exam: Present: regular rate, normal rhythm, normal heart sounds. Absent: systolic murmur, diastolic murmur, rubs, gallop, clicks GI/Abdominal exam: Present: soft, tenderness (Epigastric), normal bowel sounds. Absent: distended, guarding, rebound, rigid Extremities exam: Present: normal inspection, full ROM, normal capillary refill. Absent: tenderness, pedal edema, joint swelling, calf tenderness Back exam: Present: normal inspection Neurological exam: Present: alert, oriented X3, CN II-XII intact Psychiatric exam: Present: normal affect, normal mood <Saba Rodas - Last Filed: 12/14/18 03:19> - General Exam Comments Initial Comments: 73-year-old female. Alert and oriented. No distress. (Saba Rodas) Course Vital Signs 12/13/18 12/14/18 12/14/18 23:12 04:38 04:55 Temperature 99.2 F 98.4 F Pulse Rate 82 75 Pulse Rate [ 76 Pulse Oximetery ] Respiratory 18 16 15 Rate Blood Pressure 154/83 138/83 Blood Pressure 134/77 [Right Arm] O2 Sat by Pulse 97 96 96 Oximetry Medical Decision Making - Lab Data Result diagrams: 12/14/18 01:03 12/14/18 01:03 <Saba Rodas - Last Filed: 12/14/18 03:19> - Lab Data Result diagrams: 12/14/18 01:03 12/14/18 01:03 <Noel Corrales - Last Filed: 12/16/18 08:42> - Medical Decision Making 73-year-old female presents emergency department today with intractable nausea and vomiting for the past 4 days. The Patient had barium swallow study was reviewed by Dr. Segovia. She will return for some gastric surgery Constipation. Patient at this time has normal labwork. Urinalysis shows ketones. Concerns for dehydration. Patient reports that she was supposed be admitted by her primary care doctor for fluids tomorrow. Patient reports that should she couldn't take it anymore this evening with nausea and vomiting she came in early. At this time Patient was given 2 L bolus. Will be admitted at this time with consult to Dr. Segovia (Saba Rodas) I saw this patient in conjunction with the physician title i assistant. I performed independent history and physical exam. Agree with case management. (Noel Canela) - Lab Data Lab Results 12/14/18 12/14/18 12/14/18 Range/Units 01:03 01:03 01:30 WBC 8.0 (3.8-10.6) k/uL RBC 4.28 (3.80-5.40) m/uL Hgb 13.3 (11.4-16.0) gm/dL Hct 40.2 (34.0-46.0) % MCV 94.0 (80.0-100.0) fL MCH 31.1 (25.0-35.0) pg MCHC 33.1 (31.0-37.0) g/dL RDW 15.0 (11.5-15.5) % Plt Count 211 (150-450) k/uL Neutrophils % 72 % Lymphocytes % 17 % Monocytes % 6 % Eosinophils % 2 % Basophils % 1 % Neutrophils # 5.8 (1.3-7.7) k/uL Lymphocytes # 1.3 (1.0-4.8) k/uL Monocytes # 0.5 (0-1.0) k/uL Eosinophils # 0.1 (0-0.7) k/uL Basophils # 0.0 (0-0.2) k/uL Sodium 134 L (137-145) mmol/L Potassium 4.2 (3.5-5.1) mmol/L Chloride 102 (98-107) mmol/L Carbon Dioxide 23 (22-30) mmol/L Anion Gap 9 mmol/L BUN 20 H (7-17) mg/dL Creatinine 0.91 (0.52-1.04) mg/dL Est GFR (CKD-EPI)AfAm 71 (>60 ml/min/1.73 sqM) Est GFR (CKD-EPI)NonAf 62 (>60 ml/min/1.73 sqM) Glucose 120 H (74-99) mg/dL Calcium 9.7 (8.4-10.2) mg/dL Total Bilirubin 0.6 (0.2-1.3) mg/dL AST 27 (14-36) U/L ALT 26 (9-52) U/L Alkaline Phosphatase 73 (38-126) U/L Total Protein 5.9 L (6.3-8.2) g/dL Albumin 3.4 L (3.5-5.0) g/dL Amylase 56 (30-110) U/L Lipase 57 (23-300) U/L Urine Color Yellow Urine Appearance Cloudy H (Clear) Urine pH 5.5 (5.0-8.0) Ur Specific [place] 1.019 (1.001-1.035) Urine Protein Trace H (Negative) Urine Glucose (UA) Negative (Negative) Urine Ketones 2+ H (Negative) Urine Blood Negative (Negative) Urine Nitrite Negative (Negative) Urine Bilirubin Negative (Negative) Urine Urobilinogen <2.0 (<2.0) mg/dL Ur Leukocyte Esterase Moderate H (Negative) Urine RBC 1 (0-5) /hpf Urine WBC 21 H (0-5) /hpf Ur Squamous Epith Cells 2 (0-4) /hpf Amorphous Sediment Occasional H (None) /hpf Urine Bacteria Occasional H (None) /hpf Hyaline Casts 17 H (0-2) /lpf Urine Mucus Occasional H (None) /hpf Disposition Is patient prescribed a controlled substance at d/c from ED?: No Time of Disposition: 03:22 <Saba Rodas - Last Filed: 12/14/18 03:19> <Noel Corrales - Last Filed: 12/16/18 08:42> Clinical Impression: Abdominal pain, Intractable nausea and vomiting Disposition: ADMITTED IP TO THIS [facility] Condition: Good
[2018-12-14 02:11] LABS: Albumin 3.4 g/dL (3.5-5.0); Calcium 9.7 mg/dL (8.4-10.2); Potassium 4.2 mmol/L (3.5-5.1); Total Bilirubin 0.6 mg/dL (0.2-1.3); Total Protein 5.9 g/dL (6.3-8.2)
[2018-12-14 02:13] LABS: Amorphous Sediment,Urine Occasional /hpf; Appearance,Urine Cloudy (Clear); Bacteria,Urine Occasional /hpf; Bilirubin,Urine Negative (Negative); Blood,Urine Negative (Negative); Color,Urine Yellow; Glucose,Urine (UA) Negative (Negative); Hyaline Casts,Urine 17 /lpf (0-2); Ketones,Urine 2+ (Negative); Leukocyte Esterase,Urine Moderate (Negative); Mucus,Urine Occasional /hpf; Nitrite,Urine Negative (Negative); PH, Urine 5.5 (5.0-8.0); Protein,Urine Trace (Negative); RBC,Urine 1 /hpf (0-5); Specific Gravity,Urine 1.019 (1.001-1.035); Squamous Epithelial Cell,Urine 2 /hpf (0-4); Urobilinogen,Urine <2.0 mg/dL (<2.0); WBC,Urine 21 /hpf (0-5)
[2018-12-14] MEDS ORDERED: NALOXONE 0.4 MG/ML 1 ML VIAL IV PRN (03:24)
[2018-12-14] MEDS ORDERED: ONDANSETRON 4 MG/2 ML VIAL IVP PRN (03:24)
[2018-12-14] MEDS ORDERED: HYDROmorphone 1 MG/ML 1 ML SYRINGE IVP PRN (04:51)
[2018-12-14 05:16] VITALS: BMI 25.7
[2018-12-14] MEDS: SODIUM CHLORIDE 0.9% 1,000 ML IV SCH ×2 (05:23→14:42)
[2018-12-14] MEDS ORDERED: PANTOPRAZOLE 40 MG/10 ML VIAL IVP SCH (09:00)
[2018-12-14] MEDS ORDERED: DICYCLOMINE 10 MG CAP PO PRN (10:28)
[2018-12-14] MEDS ORDERED: HYDROcodone/APAP 7.5-325MG 1 EACH TAB PO PRN (10:28)
[2018-12-14] MEDS ORDERED: ONDANSETRON ODT 4 MG TAB PO PRN (10:28)
[2018-12-14] MEDS ORDERED: busPIRone HCl 10 MG TAB PO SCH (10:30)
[2018-12-14] MEDS ORDERED: FLUoxetine HCL 20 MG CAP PO SCH (10:45)
[2018-12-14] MEDS ORDERED: OLANZapine 10 MG TAB PO SCH (10:45)
[2018-12-14] MEDS ORDERED: LEVOTHYROXINE 25 MCG TAB PO SCH (10:45)
[2018-12-14] MEDS: GABAPENTIN 300 MG CAP PO SCH ×2 (13:16→17:37)
--- NOTE | 2018-12-14 13:51 | P.HPIM ---
History of Present Illness H&P Date: 12/14/18 Chief Complaint: Vomiting 4 days This is a 73-year-old female with a known history of lap band, cholecystectomy, hyperlipidemia, hypertension, hypothyroidism, nicotine dependence, interval bowel syndrome, duodenitis, gastritis and hiatal hernia. Patient presents to the emergency room with a four-day history of nausea and vomiting. She reports her last episode of vomiting was on Thursday which was 5 days ago. She reports having a bowel movement 3 days ago. She had been doing with the nausea and vomiting initially had gone into the ER on December 11 for further evaluation. She was discharged and followed up with her surgeon Dr. Jensen and at that time had a barium swallow evaluation and her LAP-BAND was functioning appropriately. In October she was hospitalized with abdominal pain at that time computed tomography scan had shown duodenitis she also had an EGD showing moderate duodenitis moderate gastritis and hiatal hernia. On admission she was found to have a UTI she was having low-grade temps of 99 LFTs and lipase were normal. Patient's diet was advanced to a clear liquid diet. She tolerated this well. She's had no further vomiting. She's been up and ambulating and surgical service has been through to see her and has cleared her for discharge. Patient will be started on Rocephin and then switched over to Ceftin for 7 days for treating for her UTI. She has been have evidence of hypotension blood pressure medications held during her hospitalization. We'll continue holding her Catapres and decrease the Norvasc to 5 mg daily at home. Patient admits to some chills. Denies any fever. Reports having bowel movements. Reports suprapubic discomfort but denies any burning with urination or frequency. Denies any chest pain or shortness of breath. Review of Systems Please refer to HPI otherwise unremarkable Past Medical History Past Medical History: Diabetes Mellitus, Hyperlipidemia, Hypertension, Thyroid Disorder Additional Past Medical History / Comment(s): Type 2 DM (resolved), Hypothyroidism, IBS; shingles to left shoulder/arm finished treatment 10/29/18, started 8wks ago History of Any Multi-Drug Resistant Organisms: None Reported Past Surgical History: Appendectomy, Bariatric Surgery, Cholecystectomy, Hernia Repair, Tonsillectomy, Tubal Ligation Additional Past Surgical History / Comment(s): lap band placed 2000(??) Past Anesthesia/Blood Transfusion Reactions: No Reported Reaction Additional Past Anesthesia/Blood Transfusion Reaction / Comment(s): No blood transfusion to date Past Psychological History: Anxiety, Depression Smoking Status: Current every day smoker Past Alcohol Use History: None Reported Past Drug Use History: None Reported Additional Drug Use History / Comment(s): 1/2 pack /day x 50 years (off and on) - Past Family History Father Family Medical History: Cancer Additional Family Medical History / Comment(s): Prostate and bone cancer Mother Family Medical History: Dementia Medications and Allergies Home Medications Medication Instructions Recorded Confirmed Type Aspirin EC [Ecotrin] 325 mg PO DAILY 07/28/16 12/14/18 History HYDROcodone/APAP 7.5-325MG [[place] 7.5 mg PO QID PRN 02/16/18 12/14/18 History 7.5-325] Levothyroxine Sodium [Synthroid] 25 mcg PO DAILY 02/16/18 12/14/18 History OLANZapine [ZyPREXA] 10 mg PO DAILY 02/16/18 12/14/18 History Pravastatin Sodium [Pravachol] 40 mg PO HS 02/16/18 12/14/18 History busPIRone HCl [Buspar] 10 mg PO BID 02/16/18 12/14/18 History Potassium Chloride [Klor-Con 10] 10 meq PO BID 03/11/18 12/14/18 History Cholecalciferol [Vitamin D3] 1,000 unit PO DAILY 09/19/18 12/14/18 History Mirabegron [Myrbetriq] 50 mg PO DAILY 09/19/18 12/14/18 History FLUoxetine HCL [PROzac] 60 mg PO DAILY 10/31/18 12/14/18 History Gabapentin [Neurontin] 300 mg PO TID 11/02/18 12/14/18 History Dicyclomine [Bentyl] 10 mg PO QID PRN 30 Days #90 cap 11/03/18 12/14/18 Rx Pantoprazole [Protonix] 40 mg PO AC-BID 30 Days #60 11/03/18 12/14/18 Rx tablet. Ondansetron Odt [Zofran Odt] 4 mg PO Q8HR PRN #10 tab 12/11/18 12/14/18 Rx Losartan Potassium 100 mg PO DAILY 12/14/18 12/14/18 History OLANZapine [ZyPREXA] 2.5 mg PO HS 12/14/18 12/14/18 History Oxybutynin Chloride [Ditropan XL] 10 mg PO DAILY 12/14/18 12/14/18 History amLODIPine [Norvasc] 5 mg PO BID 12/14/18 12/14/18 History cloNIDine HCL [Catapres] 0.1 mg PO DAILY 12/14/18 12/14/18 History Allergies Allergy/AdvReac Type Severity Reaction Status Date / Time ciprofloxacin [From Cipro] Allergy Rash/Hives Verified 12/14/18 07:37 Physical Exam Vitals: Vital Signs Temp Pulse Pulse Resp BP BP Pulse Ox 12/14/18 13:15 69 92/55 12/14/18 07:29 99.0 F 73 14 103/60 94 L 12/14/18 04:55 98.4 F 76 15 134/77 96 12/14/18 04:38 75 16 138/83 96 12/13/18 23:12 99.2 F 82 18 154/83 97 Intake and Output 12/13/18 12/14/18 12/14/18 22:59 06:59 14:59 Intake Total 100 Balance 100 Intake: Intake, IV Titration 100 Amount Sodium Chloride 0.9% 1, 100 000 ml @ 100 mls/hr IV . Q10H [facility] Rx#:[id number] Other: Weight 59.874 kg Head normocephalic Neck supple Lungs clear to auscultation bilaterally no wheezing or crackles Heart regular rate and rhythm S1-S2, no rub or gallop Abdomen is soft suprapubic tenderness nondistended positive bowel sounds no hepatosplenomegaly Extremities no edema Neuro alert and orientated to 3 Results CBC & Chem 7: 12/14/18 01:03 12/14/18 01:03 Labs: Abnormal Lab Results - Last 24 Hours (Table) 12/14/18 12/14/18 Range/Units 01:03 01:30 Sodium 134 L (137-145) mmol/L BUN 20 H (7-17) mg/dL Glucose 120 H (74-99) mg/dL Total Protein 5.9 L (6.3-8.2) g/dL Albumin 3.4 L (3.5-5.0) g/dL Urine Appearance Cloudy H (Clear) Urine Protein Trace H (Negative) Urine Ketones 2+ H (Negative) Ur Leukocyte Esterase Moderate H (Negative) Urine WBC 21 H (0-5) /hpf Amorphous Sediment Occasional H (None) /hpf Urine Bacteria Occasional H (None) /hpf Hyaline Casts 17 H (0-2) /lpf Urine Mucus Occasional H (None) /hpf Thrombosis Risk Factor Assmnt - Choose All That Apply Any of the Below Risk Factors Present?: No Other Risk Factors: Yes Each Risk Factor Represents 3 Points: Age 75 years or older Thrombosis Risk Factor Assessment Total Risk Factor Score: 3 Thrombosis Risk Factor Assessment Level: Moderate Risk Assessment and Plan Assessment: 1. Suprapubic abdominal discomfort with nausea and vomiting possibly related to UTI 2. UTI: Urine culture pending. Patient started on Rocephin. We'll discharge home with Ceftin 500 milligrams twice a day for 7 days 3. Hypotension: Discontinue Catapres. We'll decrease the Norvasc to 5 mg daily. Have patient monitor blood pressures at home. Have her follow-up with her PCP in 3 days 4. Nicotine dependence: Discussed smoking cessation for greater than 3 minutes 5. Hypothyroidism 6. Essential hypertension history 7. History of moderate duodenitis, gastritis and small hiatal hernia on EGD in October 2018 Patient has been seen and evaluated by surgical service. Her vomiting resolved. It is been multiple days since she's had any further vomiting. Patient is rec eived IV fluids and Rocephin for her UTI. Patient's symptoms have improved. She is eager for discharge. She has been cleared by surgical service for discharge. Patient will be discharged today on 12/14/2018. This document patient will come for both H&P and discharge summary Time with Patient: Greater than 30 (>Greater than 50% of the total time spent in counseling and coordination of care. I performed an examination of the patient and discussed their management with the physician Dean Of Graduate Studies. I have reviewed the Physician Dean Of Graduate Studies's notes and agree with the documented findings and plan of care)
--- NOTE | 2018-12-14 14:28 | P.GSCN ---
History of Present Illness Consult date: 12/14/18 Reason for Consult: abdominal pain Requesting physician: Saba Rodas History of present illness: CHIEF COMPLAINT: Abdominal pain HISTORY OF PRESENT ILLNESS: 73-year-old female who was experiencing nausea and vomiting for the last 4 days. Patient underwent a barium swallow yesterday which was negative for obstruction. Patient presented to the hospital for further evaluation. Patient has received fluid boluses and is feeling much better today. She denies further episodes of nausea or vomiting. She denies abdominal pain. She is hoping to be discharged home today. PAST MEDICAL HISTORY: See list. PAST SURGICAL HISTORY: See list. SOCIAL HISTORY: No illicit drug use. REVIEW OF SYSTEMS: CONSTITUTIONAL: Denies fever or chills. HEENT: Denies blurred vision, vision changes, or eye pain. Denies hemoptysis CARDIOVASCULAR: Denies chest pain or pressure. RESPIRATORY: No shortness of breath. GASTROINTESTINAL: Refer to HPI for pertinent findings HEMATOLOGIC: Denies bleeding disorders. GENITOURINARY: Denies any blood in urine. SKIN: Denies pruitis. Denies rash. PHYSICAL EXAM: VITAL SIGNS: Reviewed. GENERAL: Well-developed in no acute distress. HEENT: No sclera icterus. Extraocular movements grossly intact. Moist buccal mucosa. Head is atraumatic, normocephalic. ABDOMEN: Soft. Nondistended. Nontender. . NEUROLOGIC: Alert and oriented. Cranial nerves II through XII grossly intact. ASSESSMENT: 1. Nausea and vomiting 4 days 2. History of lap band PLAN: Patient is cleared for discharge from a surgical standpoint. Patient is to remain on liquids for one week at the time of discharge. Nurse practitioner note has been reviewed by physician. Signing provider agrees with the documented findings, assessment, and plan of care. Past Medical History Past Medical History: Diabetes Mellitus, Hyperlipidemia, Hypertension, Thyroid Disorder Additional Past Medical History / Comment(s): Type 2 DM (resolved), Hypothyroidism, IBS; shingles to left shoulder/arm finished treatment 10/29/18, started 8wks ago History of Any Multi-Drug Resistant Organisms: None Reported Past Surgical History: Appendectomy, Bariatric Surgery, Cholecystectomy, Hernia Repair, Tonsillectomy, Tubal Ligation Additional Past Surgical History / Comment(s): lap band placed 2000(??) Past Anesthesia/Blood Transfusion Reactions: No Reported Reaction Additional Past Anesthesia/Blood Transfusion Reaction / Comm: No blood transfusion to date Past Psychological History: Anxiety, Depression Smoking Status: Current every day smoker Past Alcohol Use History: None Reported Past Drug Use History: None Reported Additional Drug Use History / Comment(s): 1/2 pack /day x 50 years (off and on) - Past Family History Father Family Medical History: Cancer Additional Family Medical History / Comment(s): Prostate and bone cancer Mother Family Medical History: Dementia Medications and Allergies Home Medications Medication Instructions Recorded Confirmed Type Aspirin EC [Ecotrin] 325 mg PO DAILY 07/28/16 12/14/18 History HYDROcodone/APAP 7.5-325MG [[place] 7.5 mg PO QID PRN 02/16/18 12/14/18 History 7.5-325] Levothyroxine Sodium [Synthroid] 25 mcg PO DAILY 02/16/18 12/14/18 History OLANZapine [ZyPREXA] 10 mg PO DAILY 02/16/18 12/14/18 History Pravastatin Sodium [Pravachol] 40 mg PO HS 02/16/18 12/14/18 History busPIRone HCl [Buspar] 10 mg PO BID 02/16/18 12/14/18 History Potassium Chloride [Klor-Con 10] 10 meq PO BID 03/11/18 12/14/18 History Cholecalciferol [Vitamin D3] 1,000 unit PO DAILY 09/19/18 12/14/18 History FLUoxetine HCL [PROzac] 60 mg PO DAILY 10/31/18 12/14/18 History Gabapentin [Neurontin] 300 mg PO TID 11/02/18 12/14/18 History Dicyclomine [Bentyl] 10 mg PO QID PRN 30 Days #90 cap 11/03/18 12/14/18 Rx Pantoprazole [Protonix] 40 mg PO AC-BID 30 Days #60 11/03/18 12/14/18 Rx tablet. Ondansetron Odt [Zofran ODT] 4 mg PO Q8HR PRN #10 tab 12/11/18 12/14/18 Rx Cefuroxime Axetil [Ceftin] 500 mg PO BID #14 tab 12/14/18 Rx Losartan Potassium 100 mg PO DAILY 12/14/18 12/14/18 History OLANZapine [ZyPREXA] 2.5 mg PO HS 12/14/18 12/14/18 History Oxybutynin Chloride [Ditropan XL] 10 mg PO DAILY 12/14/18 12/14/18 History amLODIPine [Norvasc] 5 mg PO DAILY #30 tab 12/14/18 Rx Allergies Allergy/AdvReac Type Severity Reaction Status Date / Time ciprofloxacin [From Cipro] Allergy Rash/Hives Verified 12/14/18 07:37 Surgical - Exam Vital Signs Temp Pulse Resp BP Pulse Ox 99.2 F 82 18 154/83 97 12/13/18 23:12 12/13/18 23:12 12/13/18 23:12 12/13/18 23:12 12/13/18 23:12 Results - Labs 12/14/18 01:03 12/14/18 01:03 Abnormal Lab Results - Last 24 Hours (Table) 12/14/18 12/14/18 Range/Units 01:03 01:30 Sodium 134 L (137-145) mmol/L BUN 20 H (7-17) mg/dL Glucose 120 H (74-99) mg/dL Total Protein 5.9 L (6.3-8.2) g/dL Albumin 3.4 L (3.5-5.0) g/dL Urine Appearance Cloudy H (Clear) Urine Protein Trace H (Negative) Urine Ketones 2+ H (Negative) Ur Leukocyte Esterase Moderate H (Negative) Urine WBC 21 H (0-5) /hpf Amorphous Sediment Occasional H (None) /hpf Urine Bacteria Occasional H (None) /hpf Hyaline Casts 17 H (0-2) /lpf Urine Mucus Occasional H (None) /hpf Diabetes panel 12/14/18 Range/Units 01:03 Sodium 134 L (137-145) mmol/L Potassium 4.2 (3.5-5.1) mmol/L Chloride 102 (98-107) mmol/L Carbon Dioxide 23 (22-30) mmol/L BUN 20 H (7-17) mg/dL Creatinine 0.91 (0.52-1.04) mg/dL Glucose 120 H (74-99) mg/dL Calcium 9.7 (8.4-10.2) mg/dL AST 27 (14-36) U/L ALT 26 (9-52) U/L Alkaline Phosphatase 73 (38-126) U/L Total Protein 5.9 L (6.3-8.2) g/dL Albumin 3.4 L (3.5-5.0) g/dL Calcium panel 12/14/18 Range/Units 01:03 Calcium 9.7 (8.4-10.2) mg/dL Albumin 3.4 L (3.5-5.0) g/dL Pituitary panel 12/14/18 Range/Units 01:03 Sodium 134 L (137-145) mmol/L Potassium 4.2 (3.5-5.1) mmol/L Chloride 102 (98-107) mmol/L Carbon Dioxide 23 (22-30) mmol/L BUN 20 H (7-17) mg/dL Creatinine 0.91 (0.52-1.04) mg/dL Glucose 120 H (74-99) mg/dL Calcium 9.7 (8.4-10.2) mg/dL Adrenal panel 12/14/18 Range/Units 01:03 Sodium 134 L (137-145) mmol/L Potassium 4.2 (3.5-5.1) mmol/L Chloride 102 (98-107) mmol/L Carbon Dioxide 23 (22-30) mmol/L BUN 20 H (7-17) mg/dL Creatinine 0.91 (0.52-1.04) mg/dL Glucose 120 H (74-99) mg/dL Calcium 9.7 (8.4-10.2) mg/dL Total Bilirubin 0.6 (0.2-1.3) mg/dL AST 27 (14-36) U/L ALT 26 (9-52) U/L Alkaline Phosphatase 73 (38-126) U/L Total Protein 5.9 L (6.3-8.2) g/dL Albumin 3.4 L (3.5-5.0) g/dL
[2018-12-14 15:02] VITALS: BP 93/56; PULSE 68; RESP 15; TEMP 97.8
[2018-12-14] MEDS ORDERED: PANTOPRAZOLE 40 MG TABLET PO SCH (17:30)
[2018-12-14] MEDS ORDERED: OLANZapine 2.5 MG TAB PO SCH (21:00)
[2018-12-14] MEDS ORDERED: PRAVASTATIN SODIUM 40 MG TAB PO SCH (21:00)
[2018-12-14] MEDS ORDERED: POTASSIUM CHLORIDE ER 10 MEQ TAB.ER.PRT PO SCH (21:00)
[2018-12-15] MEDS ORDERED: OXYBUTYNIN 10 MG TAB.ER.24 PO SCH (09:00)
[2018-12-15] MEDS ORDERED: CHOLECALCIFEROL 1,000 UNIT TAB PO SCH (12:00)
== END 2018-12-14 17:21 | disposition home or self-care (01) ==
LOC: EC 22:25 → 4SSUR 12-14 03:50
PROVIDERS: ADMIT Internal Medicine; ATTEND Internal Medicine
DX: R11.2 Nausea with vomiting, unspecified (principal); N39.0 Urinary tract infection, site not specified; R10.30 Lower abdominal pain, unspecified; I95.9 Hypotension, unspecified; K58.9 Irritable bowel syndrome, unspecified; E11.9 Type 2 diabetes mellitus without complications; E03.9 Hypothyroidism, unspecified; I10 Essential (primary) hypertension; E78.5 Hyperlipidemia, unspecified; F41.9 Anxiety disorder, unspecified; F32.9 Major depressive disorder, single episode, unspecified; F17.210 Nicotine dependence, cigarettes, uncomplicated; K44.9 Diaphragmatic hernia without obstruction or gangrene; Z79.82 Long term (current) use of aspirin; Z79.890 Hormone replacement therapy; Z79.899 Other long term (current) drug therapy; Z88.1 Allergy status to other antibiotic agents; Z90.49 Acquired absence of other specified parts of digestive tract; Z98.84 Bariatric surgery status; Z98.51 Tubal ligation status; Z86.19 Personal history of other infectious and parasitic diseases; Z81.8 Family history of other mental and behavioral disorders; Z80.42 Family history of malignant neoplasm of prostate; Z80.8 Family history of malignant neoplasm of other organs or systems
CPT/HCPCS: 96361 ×2; 96365; 96375 ×2; 99285; 36415; 80053; 82150; 83690; 85025; 81001; G0378; J2405; J0696; J1170; C9113

== ENCOUNTER → 2018-12-13 | Outpatient (CLI) | payer MEDICARE ==
[2018-12-13 14:30] VITALS: BP 150/85; PULSE 78; TEMP 98; BMI 25.7
--- NOTE | 2018-12-13 16:45 | FL ---
Barium swallow HISTORY: Dysphasia and nausea, dry heaves 1 minute 12 seconds fluoroscopy time, 7 intraoperative images Patroller film shows a lap band in a normal orientation. Surgical clips are present in the right upper qu adrant. [place] are also present over the upper abdomen. There is a spinal curvature. Lung bases are clear. The swallowing mechanism is normal. The level of the lap band there is some prominence of the distal esophagus. There is no obstruction to flow or extravasation. There is unremarkable flow into the prox imal small bowel. IMPRESSION: Post lap band findings.
--- NOTE | 2018-12-17 11:58 | P.HPBAR ---
Bariatric H&P - History & Physicial H&P Date: 12/17/18 History & Physicial: Visit/CC: abdominal pain and recent n/v Patient initial contact: Initial weight: 59.562 kg Initial weight in pounds: 131.31 Height: 5 ft Initial BMI: 25.6 Last weight: Current weight: 59.874 kg Current weight in pounds: 132.00 Current BMI: 25.7 May body weight (based on NIH guidelines): 45.359 kg Excess body weight loss: The patient is a 73 year-old F who presents for Bariatric Assessment. Patient has some mild complaints of dysphagia. She's had some nausea. Past Medical History Past Medical History: Diabetes Mellitus, Hyperlipidemia, Hypertension, Thyroid Disorder Additional Past Medical History / Comment(s): Type 2 DM (resolved), Hypothyroidism, IBS; shingles to left shoulder/arm finished treatment 10/29/18, started 8wks ago History of Any Multi-Drug Resistant Organisms: None Reported Past Surgical History: Appendectomy, Bariatric Surgery, Cholecystectomy, Hernia Repair, Tonsillectomy, Tubal Ligation Additional Past Surgical History / Comment(s): lap band placed 2000(??) Past Anesthesia/Blood Transfusion Reactions: No Reported Reaction Additional Past Anesthesia/Blood Transfusion Reaction / Comm: No blood transfusion to date Past Psychological History: Anxiety, Depression Smoking Status: Current every day smoker Past Alcohol Use History: None Reported Past Drug Use History: None Reported Additional Drug Use History / Comment(s): 1/2 pack /day x 60 years (off and on) Surgical - Exam Vital Signs Temp Pulse BP 98.0 F 78 150/85 12/13/18 13:51 12/13/18 13:51 12/13/18 13:51 - General well developed, well nourished, no distress - Eyes PERRL - ENT normal pinna - Neck no masses - Respiratory normal expansion - Cardiovascular Rhythm: regular - Abdomen There is evidence of recurrent incisional hernia in the right subcostal incision. Abdomen: soft, non tender Bariatric Assessment & Plan Plan: Nausea with possible dehydration. Patient will receive fluid hydration and. She'll be seen in the general surgery clinic for repair of her incisional hernia. Bariatric Checklist Checklist: Plan: Checklist: EGD: 1. Hiatal hernia: 2. H. Pylori: HgbA1c: Vitamin D: Smoking: Current every day smoker Primary care physician referral: Mehnaz Beck Psychiatry clearance: Cardiology clearance: Sleep study: Diet journal: VTE risk score: VTE risk level: Rehab needs at discharge:
== END | disposition home or self-care (01) ==
LOC: BARWHC3 13:41
PROVIDERS: ATTEND Surgery
DX: R11.0 Nausea (principal); F17.200 Nicotine dependence, unspecified, uncomplicated; K43.2 Incisional hernia without obstruction or gangrene; R10.9 Unspecified abdominal pain; R13.10 Dysphagia, unspecified; Z98.84 Bariatric surgery status
CPT/HCPCS: 74220; G0463; 99213

== ENCOUNTER 2018-12-20 22:09 | Emergency (ER) | payer MEDICARE ==
[2018-12-20 22:15] VITALS: RESP 18
[2018-12-20] MEDS ORDERED: ONDANSETRON 4 MG/2 ML VIAL IVP STA (23:00)
[2018-12-20] MEDS ORDERED: SODIUM CHLORIDE 0.9% 1,000 ML IV STA (23:00)
[2018-12-20] MEDS ORDERED: MORPHINE SULFATE 4 MG/ML SYRINGE IV STA (23:00)
--- NOTE | 2018-12-20 23:00 | ED ---
Abdominal Pain HPI - General Chief Complaint: Abdominal Pain Stated Complaint: Abd & Back Pain Source: patient Mode of arrival: wheelchair Limitations: no limitations - History of Present Illness Initial Comments: Vilma is a 73-year-old female with a known history of lap band, cholecystectomy, hyperlipidemia, hypertension, hypothyroidism, nicotine dependence, interval bowel syndrome, duodenitis, gastritis and hiatal hernia. Patient has undergone extensive inpatient and outpatient workup over the past 2 months for this chronic abdominal pain. Patient was recently admitted for the abdominal pain and dehydration as well as urinary tract infection. She was discharged home l ast week she reports the pain never got better. She reports that she cannot tolerate any oral intake she has chronic nausea, burning epigastric abdominal pain which radiates to her back. Patient's neighbor brought to the hospital today concern that she may be getting dehydrated because she hasn't seen her be able to tolerate any oral intake in over a week. Expresses concern that there something seriously wrong she states she is concerned that she may have stomach cancer something because something is wrong. Patient is currently scheduled to have a ventral hernia repair with Dr. vidal out on January 05. - Related Data Home Medications Medication Instructions Recorded Confirmed Aspirin EC [Ecotrin] 325 mg PO DAILY 07/28/16 12/15/18 HYDROcodone/APAP 7.5-325MG [[place] 7.5 mg PO QID PRN 02/16/18 12/15/18 7.5-325] Levothyroxine Sodium [Synthroid] 25 mcg PO DAILY 02/16/18 12/15/18 OLANZapine [ZyPREXA] 10 mg PO DAILY 02/16/18 12/15/18 Pravastatin Sodium [Pravachol] 40 mg PO HS 02/16/18 12/15/18 busPIRone HCl [Buspar] 10 mg PO BID 02/16/18 12/15/18 Potassium Chloride [Klor-Con 10] 10 meq PO BID 03/11/18 12/15/18 Cholecalciferol [Vitamin D3] 1,000 unit PO DAILY 09/19/18 12/15/18 FLUoxetine HCL [PROzac] 60 mg PO DAILY 10/31/18 12/15/18 Gabapentin [Neurontin] 300 mg PO TID 11/02/18 12/15/18 Losartan Potassium 100 mg PO DAILY 12/14/18 12/15/18 OLANZapine [ZyPREXA] 2.5 mg PO HS 12/14/18 12/15/18 Oxybutynin Chloride [Ditropan XL] 10 mg PO DAILY 12/14/18 12/15/18 Previous Rx's Medication Instructions Recorded Dicyclomine [Bentyl] 10 mg PO QID PRN 30 Days #90 cap 11/03/18 Pantoprazole [Protonix] 40 mg PO AC-BID 30 Days #60 11/03/18 tablet. Ondansetron Odt [Zofran ODT] 4 mg PO Q8HR PRN #10 tab 12/11/18 Cefuroxime Axetil [Ceftin] 500 mg PO BID #14 tab 12/14/18 amLODIPine [Norvasc] 5 mg PO DAILY #30 tab 12/14/18 Allergies Allergy/AdvReac Type Severity Reaction Status Date / Time ciprofloxacin [From Cipro] Allergy Rash/Hives Verified 12/20/18 22:15 Review of Systems ROS Statement: Those systems with pertinent positive or pertinent negative responses have been documented in the HPI. ROS Other: All systems not noted in ROS Statement are negative. Past Medical History Past Medical History: Diabetes Mellitus, Hyperlipidemia, Hypertension, Thyroid Disorder Additional Past Medical History / Comment(s): Type 2 DM (resolved), Hypothyroidism, IBS; shingles to left shoulder/arm finished treatment 10/29/18, started 8wks ago History of Any Multi-Drug Resistant Organisms: None Reported Past Surgical History: Appendectomy, Bariatric Surgery, Cholecystectomy, Hernia Repair, Tonsillectomy, Tubal Ligation Additional Past Surgical History / Comment(s): lap band placed 2000(??) Past Anesthesia/Blood Transfusion Reactions: No Reported Reaction Additional Past Anesthesia/Blood Transfusion Reaction / Comment(s): No blood transfusion to date Past Psychological History: Anxiety, Depression Smoking Status: Current every day smoker Past Alcohol Use History: None Reported Past Drug Use History: None Reported - Past Family History Father Family Medical History: Cancer Additional Family Medical History / Comment(s): Prostate and bone cancer Mother Family Medical History: Dementia General Exam - General Exam Comments Initial Comments: Physical Exam GENERAL: Patient is well-developed and well-nourished. Patient is nontoxic and well-hydrated and is in no distress. HENT: Normocephalic, Atraumatic. Moist oral mucosa EYES: PERRL, EOMI PULMONARY: Unlabored respirations CARDIOVASCULAR: RRR Mild systolic murmur ABDOMEN: Soft and nontender with normal bowel sounds. Palpable lap band port in left abdomen SKIN: Skin is clear with no lesions or rashes and otherwise unremarkable. : Deferred NEUROLOGIC: Patient is alert and oriented x3. Moving all extremities spontaneously MUSCULOSKELETAL: Normal extremities with adequate strength and full range of motion. No lower extremity swelling or edema. No calf tenderness. PSYCHIATRIC: Normal psychiatric evaluation. Limitations: no limitations Limitations: no limitations Course Vital Signs 12/20/18 22:12 Temperature 98.0 F Pulse Rate 68 Respiratory 18 Rate Blood Pressure 145/71 O2 Sat by Pulse 98 Oximetry Medical Decision Making - Medical Decision Making The patient was seen and evaluated history was obtained from the patient and review of medical records 73-year-old female who has been experiencing abdominal pain nearly continuously for a number of weeks she's been evaluated multiple times in the emergency department and admitted to the hospital evaluated by gastroenterology as well as general surgery she is scheduled for ventral hernia repair in the near future. She presents today concerned that she may be dehydrated because she doesn't feel she is eating or drinking much she reports persistent nausea and discomfort with any oral intake Labs and imaging were ordered Zofran was given for nausea and morphine for discomfort Labs resulted with no significant abnormalities. There is no evidence of dehydration. Urinalysis is clear with no evidence of urinary tract infection. Patient was reevaluated after receiving fluids and medications she reports she is feeling better. Lab results were discussed with her. She expresses relief that she is not dehydrated. - Lab Data Result diagrams: 12/20/18 23:15 12/20/18 23:15 Lab Results 12/20/18 12/20/18 12/20/18 Range/Units 23:05 23:15 23:15 WBC 7.7 (3.8-10.6) k/uL RBC 3.76 L (3.80-5.40) m/uL Hgb 11.9 (11.4-16.0) gm/dL Hct 36.5 (34.0-46.0) % MCV 97.3 (80.0-100.0) fL MCH 31.8 (25.0-35.0) pg MCHC 32.6 (31.0-37.0) g/dL RDW 15.1 (11.5-15.5) % Plt Count 194 (150-450) k/uL Neutrophils % 61 % Lymphocytes % 27 % Monocytes % 7 % Eosinophils % 1 % Basophils % 1 % Neutrophils # 4.7 (1.3-7.7) k/uL Lymphocytes # 2.1 (1.0-4.8) k/uL Monocytes # 0.6 (0-1.0) k/uL Eosinophils # 0.1 (0-0.7) k/uL Basophils # 0.1 (0-0.2) k/uL Sodium 138 (137-145) mmol/L Potassium 4.3 (3.5-5.1) mmol/L Chloride 103 (98-107) mmol/L Carbon Dioxide 29 (22-30) mmol/L Anion Gap 6 mmol/L BUN 16 (7-17) mg/dL Creatinine 0.83 (0.52-1.04) mg/dL Est GFR (CKD-EPI)AfAm 80 (>60 ml/min/1.73 sqM) Est GFR (CKD-EPI)NonAf 70 (>60 ml/min/1.73 sqM) Glucose 113 H (74-99) mg/dL Calcium 10.2 (8.4-10.2) mg/dL Total Bilirubin 0.4 (0.2-1.3) mg/dL AST 21 (14-36) U/L ALT 30 (9-52) U/L Alkaline Phosphatase 73 (38-126) U/L Total Protein 5.9 L (6.3-8.2) g/dL Albumin 3.5 (3.5-5.0) g/dL Amylase 63 (30-110) U/L Lipase 87 (23-300) U/L Urine Color Light Yellow Urine Appearance Clear (Clear) Urine pH 6.5 (5.0-8.0) Ur Specific [place] 1.007 (1.001-1.035) Urine Protein Negative (Negative) Urine Glucose (UA) Negative (Negative) Urine Ketones Negative (Negative) Urine Blood Negative (Negative) Urine Nitrite Negative (Negative) Urine Bilirubin Negative (Negative) Urine Urobilinogen <2.0 (<2.0) mg/dL Ur Leukocyte Esterase Trace H (Negative) Urine RBC 1 (0-5) /hpf Urine WBC 4 (0-5) /hpf Ur Squamous Epith Cells 5 H (0-4) /hpf Urine Mucus Rare H (None) /hpf Disposition Clinical Impression: Abdominal pain Disposition: HOME SELF-CARE Condition: Stable Is patient prescribed a controlled substance at d/c from ED?: No Referrals: Mehnaz Beck DO [Primary Care Provider] - 1-2 days
[2018-12-20 23:19] LABS: Appearance,Urine Clear (Clear); Bilirubin,Urine Negative (Negative); Blood,Urine Negative (Negative); Color,Urine Light Yellow; Glucose,Urine (UA) Negative (Negative); Ketones,Urine Negative (Negative); Leukocyte Esterase,Urine Trace (Negative); Mucus,Urine Rare /hpf; Nitrite,Urine Negative (Negative); PH, Urine 6.5 (5.0-8.0); Protein,Urine Negative (Negative); RBC,Urine 1 /hpf (0-5); Specific Gravity,Urine 1.007 (1.001-1.035); Squamous Epithelial Cell,Urine 5 /hpf (0-4); Urobilinogen,Urine <2.0 mg/dL (<2.0); WBC,Urine 4 /hpf (0-5)
[2018-12-20 23:28] LABS: Basophils # (A) 0.1 k/uL (0-0.2); Basophils % (A) 1 %; Eosinophils # (A) 0.1 k/uL (0-0.7); Eosinophils % (A) 1 %; HCT 36.5 % (34.0-46.0); HGB 11.9 gm/dL (11.4-16.0); Lymphocytes # (A) 2.1 k/uL (1.0-4.8); Lymphocytes % (A) 27 %; MCH 31.8 pg (25.0-35.0); MCHC 32.6 g/dL (31.0-37.0); MCV 97.3 fL (80.0-100.0); Mean Platelet Volume 6.6; Monocytes # (A) 0.6 k/uL (0-1.0); Monocytes % (A) 7 %; Neutrophils # (A) 4.7 k/uL (1.3-7.7); Neutrophils % (A) 61 %; Platelet Count 194 k/uL (150-450); RBC 3.76 m/uL (3.80-5.40); RDW 15.1 % (11.5-15.5); WBC 7.7 k/uL (3.8-10.6)
[2018-12-20 23:37] LABS: Albumin 3.5 g/dL (3.5-5.0); Calcium 10.2 mg/dL (8.4-10.2); Potassium 4.3 mmol/L (3.5-5.1); Total Bilirubin 0.4 mg/dL (0.2-1.3); Total Protein 5.9 g/dL (6.3-8.2)
--- NOTE | 2018-12-20 23:47 | XR ---
EXAM: XR Abdomen, 1 View CLINICAL HISTORY: ITS.REASON XR Reason: abdominal pain TECHNIQUE: Frontal supine view of the abdomen/pelvis. COMPARISON: CT abdomen/pelvis on 12/11/2018 FINDINGS: Hardware: None. Abdomen: Nonobstructive bowel gas pattern. No free air. Oral contrast noted within the right colon and transverse colons. Gastric lap band. Bones: Normal. Soft tissues: Normal. Lower chest: Left basilar opacity which may be related to enlarged cardiac silhouette. Elevation of the right hemidiaphragm. IMPRESSION: Nonobstructive bowel gas pattern. Oral contrast in the right colon and transverse colon.
[2018-12-21 00:53] VITALS: BP 150/73; PULSE 58; TEMP 98.7
== END 2018-12-21 00:51 | disposition home or self-care (01) ==
LOC: EC 22:09
DX: R10.13 Epigastric pain (principal); R01.1 Cardiac murmur, unspecified; R11.0 Nausea; M54.9 Dorsalgia, unspecified; E78.5 Hyperlipidemia, unspecified; I10 Essential (primary) hypertension; E03.9 Hypothyroidism, unspecified; F32.9 Major depressive disorder, single episode, unspecified; F41.9 Anxiety disorder, unspecified; F17.200 Nicotine dependence, unspecified, uncomplicated; Z88.1 Allergy status to other antibiotic agents; Z79.82 Long term (current) use of aspirin; Z79.890 Hormone replacement therapy; Z79.899 Other long term (current) drug therapy; Z87.19 Personal history of other diseases of the digestive system; Z90.49 Acquired absence of other specified parts of digestive tract; Z98.84 Bariatric surgery status
CPT/HCPCS: 36415; 80053; 82150; 83690; 85025; 81001; 74018; 99284; 96374; 96375; 96361; J2270; J2405

== ENCOUNTER → 2018-12-29 | Outpatient (CLI) | payer MEDICARE ==
[2018-12-29 14:45] LABS: Basophils % (A) 1 %; Eosinophils % (A) 1 %; HCT 38.5 % (34.0-46.0); HGB 12.3 gm/dL (11.4-16.0); Lymphocytes # (A) 2.6 k/uL (1.0-4.8); Lymphocytes % (A) 36 %; MCH 31.5 pg (25.0-35.0); MCHC 31.9 g/dL (31.0-37.0); MCV 98.7 fL (80.0-100.0); Macrocytosis Slight; Mean Platelet Volume 7.5; Monocytes # (A) 0.4 k/uL (0-1.0); Monocytes % (A) 6 %; Neutrophils # (A) 3.9 k/uL (1.3-7.7); Neutrophils % (A) 54 %; Platelet Count 263 k/uL (150-450); RDW 15.1 % (11.5-15.5); WBC 7.2 k/uL (3.8-10.6)
== END | disposition home or self-care (01) ==
LOC: LABWHC1 14:04
PROVIDERS: ATTEND Surgery
DX: Z01.812 Encounter for preprocedural laboratory examination (principal); K43.0 Incisional hernia with obstruction, without gangrene
CPT/HCPCS: 36415; 85025

== ENCOUNTER 2019-01-02 16:51 | Observation (INO) | payer MEDICARE ==
[2019-01-02] MEDS ORDERED: SODIUM CHLORIDE 0.9% 500 ML 500 ML IV STA (17:12)
[2019-01-02] MEDS ORDERED: ONDANSETRON 4 MG/2 ML VIAL IVP STA (17:12)
--- NOTE | 2019-01-02 17:16 | ED ---
Abdominal Pain HPI - General Chief Complaint: Abdominal Pain Stated Complaint: Constipation x4 wks Time Seen by Provider: 01/02/19 16:59 Source: patient Mode of arrival: ambulatory Limitations: no limitations - History of Present Illness Initial Comments: Patient is a 73-year-old female presenting for abdominal pain. The patient states that she has not had any bowel movements for the last 4 weeks and has been able to pass a small amount of gas. She tried magnesium citrate on Thursday and was still not able to pass any bowel movement. She states that she started having "labor pains" yesterday in her abdomen and they have been worsening. Pains are intermittent without radiation. She states that is associated with nausea but no vomiting. She denies any fevers but as well as chills. She also denies any urinary symptoms. - Related Data Home Medications Medication Instructions Recorded Confirmed Aspirin EC [Ecotrin] 325 mg PO DAILY 07/28/16 12/15/18 HYDROcodone/APAP 7.5-325MG [[place] 7.5 mg PO QID PRN 02/16/18 12/15/18 7.5-325] Levothyroxine Sodium [Synthroid] 25 mcg PO DAILY 02/16/18 12/15/18 OLANZapine [ZyPREXA] 10 mg PO DAILY 02/16/18 12/15/18 Pravastatin Sodium [Pravachol] 40 mg PO HS 02/16/18 12/15/18 busPIRone HCl [Buspar] 10 mg PO BID 02/16/18 12/15/18 Potassium Chloride [Klor-Con 10] 10 meq PO BID 03/11/18 12/15/18 Cholecalciferol [Vitamin D3] 1,000 unit PO DAILY 09/19/18 12/15/18 FLUoxetine HCL [PROzac] 60 mg PO DAILY 10/31/18 12/15/18 Gabapentin [Neurontin] 300 mg PO TID 11/02/18 12/15/18 Losartan Potassium 100 mg PO DAILY 12/14/18 12/15/18 OLANZapine [ZyPREXA] 2.5 mg PO HS 12/14/18 12/15/18 Oxybutynin Chloride [Ditropan XL] 10 mg PO DAILY 12/14/18 12/15/18 Previous Rx's Medication Instructions Recorded Dicyclomine [Bentyl] 10 mg PO QID PRN 30 Days #90 cap 11/03/18 Pantoprazole [Protonix] 40 mg PO AC-BID 30 Days #60 11/03/18 tablet. Ondansetron Odt [Zofran ODT] 4 mg PO Q8HR PRN #10 tab 12/11/18 Cefuroxime Axetil [Ceftin] 500 mg PO BID #14 tab 12/14/18 amLODIPine [Norvasc] 5 mg PO DAILY #30 tab 12/14/18 Allergies Allergy/AdvReac Type Severity Reaction Status Date / Time ciprofloxacin [From Cipro] Allergy Rash/Hives Verified 01/02/19 16:57 Review of Systems ROS Statement: Those systems with pertinent positive or pertinent negative responses have been documented in the HPI. Constitutional: Positive for chills, negative for fatigue and fever. HENT: Negative for congestion. Respiratory: Negative for chest tightness, shortness of breath and wheezing. Negative for cough Cardiovascular: Negative for chest pain and palpitations. Gastrointestinal: Positive for abdominal pain. Negative for abdominal distention, diarrhea, and vomiting. Positive for nausea Genitourinary: Negative for dysuria. Musculoskeletal: Negative for back pain, neck pain and neck stiffness. Skin: Negative for color change. Neurological: Negative for dizziness, speech difficulty, weakness and light-headedness. Psychiatric/Behavioral: Negative for agitation and confusion. Negative for anxiety ROS Other: All systems not noted in ROS Statement are negative. Past Medical History Past Medical History: Diabetes Mellitus, Hyperlipidemia, Hypertension, Thyroid Disorder Additional Past Medical History / Comment(s): Type 2 DM (resolved), Hypothyroidism, IBS History of Any Multi-Drug Resistant Organisms: None Reported Past Surgical History: Appendectomy, Bariatric Surgery, Cholecystectomy, Hernia Repair, Tonsillectomy, Tubal Ligation Additional Past Surgical History / Comment(s): lap band placed 2000(??) Past Anesthesia/Blood Transfusion Reactions: No Reported Reaction Additional Past Anesthesia/Blood Transfusion Reaction / Comment(s): No blood transfusion to date Past Psychological History: Anxiety, Depression Smoking Status: Former smoker Past Alcohol Use History: None Reported Past Drug Use History: None Reported - Past Family History Father Family Medical History: Cancer Additional Family Medical History / Comment(s): Prostate and bone cancer Mother Family Medical History: Dementia General Exam - General Exam Comments Initial Comments: Constitutional: Pt appears well-developed and well-nourished. No distress. Head: Normocephalic and atraumatic. Eyes: EOM are normal. Neck: Normal range of motion. Neck supple. Cardiovascular: Normal rate, regular rhythm, S1 normal, S2 normal and normal heart sounds. Exam reveals no gallop and no friction rub. No murmur heard. Pulmonary/Chest: Effort normal and breath sounds normal. No tachypnea and no bradypnea. No respiratory distress. No wheezes or rales noted. Abdominal: Soft. Bowel sounds are normal. Pt exhibits no shifting dullness, no pulsatile liver, no fluid wave, no abdominal bruit and no ascites. There is no rigidity, no rebound, no guarding, no tenderness at McBurney's point and negative Kennedy's sign. There is mild diffuse tenderness. There is a well- healed surgical scar crosses midline. There is a palpable port on the left uppe r quadrant of the abdomen. There is mild distention of the abdomen Musculoskeletal: Normal range of motion. Neurological: Pt is alert and oriented to person, place, and time. No cranial nerve deficit. Skin: Skin is warm and dry. No rash noted. Pt is not diaphoretic. No erythema. No pallor. Psychiatric: Pt has a normal mood and affect. Pt behavior is normal. Thought content normal. Limitations: no limitations Course Vital Signs 01/02/19 16:52 Temperature 98 F Pulse Rate 93 Respiratory 18 Rate Blood Pressure 196/104 O2 Sat by Pulse 97 Oximetry Medical Decision Making - Medical Decision Making Laboratory studies showed that leukocytosis was upturning at 14.2 which is different than the prior labs. Hemoglobin was also stable and electrolytes were within normal limits. Lactic acid was also measured at 2.0 but there was evidence of new transaminitis with AST of 39 and ALT of 76. Alk phos was also measured to be 192. There is no evidence of urinary tract infection and CT of the abdomen was performed and showed only mild constipation with mild left-sided colitis. Considering the patient's history of constipation with no bowel movement for the last 4 weeks, CT is not consistent with this. Although the colitis is likely inflammatory as patient has IBS, inflammatory process cannot be completely excluded and therefore she will be started on Rocephin and Flagyl. Because of the worsening laboratory studies as well as the worsening pain, it is felt that it is unsafe to send the patient home and therefore she will be admitted to hospital.Explained all labs and diagnostic test results and that we will admit patient to hospital. Pt is agreeable to plan and case has been discussed with Dr. Wolf and they agree to accept the pt. - Lab Data Result diagrams: 01/02/19 17:25 01/02/19 17:25 Lab Results 01/02/19 01/02/19 01/02/19 Range/Units 17:25 17:25 17:25 WBC 14.2 H (3.8-10.6) k/uL RBC 4.73 (3.80-5.40) m/uL Hgb 14.8 (11.4-16.0) gm/dL Hct 46.2 H (34.0-46.0) % MCV 97.6 (80.0-100.0) fL MCH 31.2 (25.0-35.0) pg MCHC 32.0 (31.0-37.0) g/dL RDW 14.6 (11.5-15.5) % Plt Count 287 (150-450) k/uL Neutrophils % 72 % Lymphocytes % 18 % Monocytes % 6 % Eosinophils % 1 % Basophils % 1 % Neutrophils # 10.3 H (1.3-7.7) k/uL Lymphocytes # 2.6 (1.0-4.8) k/uL Monocytes # 0.8 (0-1.0) k/uL Eosinophils # 0.2 (0-0.7) k/uL Basophils # 0.1 (0-0.2) k/uL Sodium 139 (137-145) mmol/L Potassium 3.6 (3.5-5.1) mmol/L Chloride 103 (98-107) mmol/L Carbon Dioxide 22 (22-30) mmol/L Anion Gap 14 mmol/L BUN 9 (7-17) mg/dL Creatinine 0.81 (0.52-1.04) mg/dL Est GFR (CKD-EPI)AfAm 83 (>60 ml/min/1.73 sqM) Est GFR (CKD-EPI)NonAf 72 (>60 ml/min/1.73 sqM) Glucose 145 H (74-99) mg/dL Plasma Lactic Acid [place] 2.0 (0.7-2.0) mmol/L Calcium 10.9 H (8.4-10.2) mg/dL Total Bilirubin 0.6 (0.2-1.3) mg/dL AST 39 H (14-36) U/L ALT 76 H (9-52) U/L Alkaline Phosphatase 192 H (38-126) U/L Total Protein 7.5 (6.3-8.2) g/dL Albumin 4.4 (3.5-5.0) g/dL Lipase 66 (23-300) U/L Urine Color Urine Appearance (Clear) Urine pH (5.0-8.0) Ur Specific [place] (1.001-1.035) Urine Protein (Negative) Urine Glucose (UA) (Negative) Urine Ketones (Negative) Urine Blood (Negative) Urine Nitrite (Negative) Urine Bilirubin (Negative) Urine Urobilinogen (<2.0) mg/dL Ur Leukocyte Esterase (Negative) Urine WBC (0-5) /hpf Ur Squamous Epith Cells (0-4) /hpf Amorphous Sediment (None) /hpf Urine Mucus (None) /hpf 01/02/19 Range/Units 17:25 WBC (3.8-10.6) k/uL RBC (3.80-5.40) m/uL Hgb (11.4-16.0) gm/dL Hct (34.0-46.0) % MCV (80.0-100.0) fL MCH (25.0-35.0) pg MCHC (31.0-37.0) g/dL RDW (11.5-15.5) % Plt Count (150-450) k/uL Neutrophils % % Lymphocytes % % Monocytes % % Eosinophils % % Basophils % % Neutrophils # (1.3-7.7) k/uL Lymphocytes # (1.0-4.8) k/uL Monocytes # (0-1.0) k/uL Eosinophils # (0-0.7) k/uL Basophils # (0-0.2) k/uL Sodium (137-145) mmol/L Potassium (3.5-5.1) mmol/L Chloride (98-107) mmol/L Carbon Dioxide (22-30) mmol/L Anion Gap mmol/L BUN (7-17) mg/dL Creatinine (0.52-1.04) mg/dL Est GFR (CKD-EPI)AfAm (>60 ml/min/1.73 sqM) Est GFR (CKD-EPI)NonAf (>60 ml/min/1.73 sqM) Glucose (74-99) mg/dL Plasma Lactic Acid [place] (0.7-2.0) mmol/L Calcium (8.4-10.2) mg/dL Total Bilirubin (0.2-1.3) mg/dL AST (14-36) U/L ALT (9-52) U/L Alkaline Phosphatase (38-126) U/L Total Protein (6.3-8.2) g/dL Albumin (3.5-5.0) g/dL Lipase (23-300) U/L Urine Color Yellow Urine Appearance Cloudy H (Clear) Urine pH 7.5 (5.0-8.0) Ur Specific [place] 1.011 (1.001-1.035) Urine Protein Trace H (Negative) Urine Glucose (UA) Negative (Negative) Urine Ketones Trace H (Negative) Urine Blood Negative (Negative) Urine Nitrite Negative (Negative) Urine Bilirubin Negative (Negative) Urine Urobilinogen <2.0 (<2.0) mg/dL Ur Leukocyte Esterase Trace H (Negative) Urine WBC 6 H (0-5) /hpf Ur Squamous Epith Cells 6 H (0-4) /hpf Amorphous Sediment Rare H (None) /hpf Urine Mucus Rare H (None) /hpf Disposition Clinical Impression: Colitis, Transaminitis, Leukocytosis Disposition: ADMITTED IP TO THIS [facility] Condition: Fair Is patient prescribed a controlled substance at d/c from ED?: No Referrals: Mehnaz Beck DO [Primary Care Provider] - 1-2 days Decision to Admit Reason: Admit from EC Decision Date: 01/02/19 Decision Time: 19:47
[2019-01-02 17:40] LABS: Basophils # (A) 0.1 k/uL (0-0.2); Basophils % (A) 1 %; Eosinophils # (A) 0.2 k/uL (0-0.7); Eosinophils % (A) 1 %; HCT 46.2 % (34.0-46.0); HGB 14.8 gm/dL (11.4-16.0); Lymphocytes # (A) 2.6 k/uL (1.0-4.8); Lymphocytes % (A) 18 %; MCH 31.2 pg (25.0-35.0); MCV 97.6 fL (80.0-100.0); Mean Platelet Volume 6.9; Monocytes # (A) 0.8 k/uL (0-1.0); Monocytes % (A) 6 %; Neutrophils # (A) 10.3 k/uL (1.3-7.7); Neutrophils % (A) 72 %; Platelet Count 287 k/uL (150-450); RBC 4.73 m/uL (3.80-5.40); RDW 14.6 % (11.5-15.5); WBC 14.2 k/uL (3.8-10.6)
[2019-01-02 17:47] LABS: Amorphous Sediment,Urine Rare /hpf; Appearance,Urine Cloudy (Clear); Bilirubin,Urine Negative (Negative); Blood,Urine Negative (Negative); Color,Urine Yellow; Glucose,Urine (UA) Negative (Negative); Ketones,Urine Trace (Negative); Leukocyte Esterase,Urine Trace (Negative); Mucus,Urine Rare /hpf; Nitrite,Urine Negative (Negative); PH, Urine 7.5 (5.0-8.0); Protein,Urine Trace (Negative); Specific Gravity,Urine 1.011 (1.001-1.035); Squamous Epithelial Cell,Urine 6 /hpf (0-4); Urobilinogen,Urine <2.0 mg/dL (<2.0); WBC,Urine 6 /hpf (0-5)
--- NOTE | 2019-01-02 17:48 | XR ---
EXAMINATION TYPE: XR KUB DATE OF EXAM: 01/02/2019 COMPARISON: 12/20/2018 HISTORY: Constipation TECHNIQUE: 2 views FINDINGS: There is gastrostomy or jejunostomy tube in the left upper quadrant. There is no sign of fr ee air. There is no evidence of a bowel obstruction. There is some contrast in the rectum. There is n o evidence of a mass. There are surgical clips right upper quadrant. IMPRESSION: Nonacute abdomen. There is clearing of most of the intestinal contrast compared to last e xam. No free air.
[2019-01-02 17:49] LABS: Albumin 4.4 g/dL (3.5-5.0); Calcium 10.9 mg/dL (8.4-10.2); Potassium 3.6 mmol/L (3.5-5.1); Total Bilirubin 0.6 mg/dL (0.2-1.3); Total Protein 7.5 g/dL (6.3-8.2)
--- NOTE | 2019-01-02 18:42 | CT ---
EXAMINATION TYPE: CT abdomen pelvis w con DATE OF EXAM: 01/02/2019 COMPARISON: 12/11/2018 HISTORY: Constipaton x1 month CT DLP: 684.2 mGycm Automated exposure control for dose reduction was used. TECHNIQUE: Helical acquisition of images was performed from the lung bases through the pelvis. CONTRAST: Performed without Oral Contrast and with IV Contrast, patient injected with 100 mL of Isovue 300. FINDINGS: There is mild subsegmental atelectasis at the lung bases. There is a gastric sling noted. There are c lips from cholecystectomy. There is mild prominence of the bile ducts. Common bile duct measures 12 m m. Heart size is normal. There is no pericardial effusion. There is small hiatal hernia. Liver shows no focal defect. Spleen appears normal. There is no pancreatic mass. There is no adrenal mass. There are bilateral renal cortical cysts. The largest is on the right side measures 3.5 cm on the lower pole right kidney. There is no retroperitoneal adenopathy. Abdominal aor ta is atheromatous. Ureters are not dilated. Bladder distends smoothly. There is contrast in the left colon and rectosigmoid colon. There is minimal fat stranding and fluid in the left paracolic gutter. I see no significant intestina l wall thickening. There is no inguinal hernia. There is no free fluid in the pelvis. The uterus is a nteverted. There is no evidence of a pelvic mass. There is no evidence of free air. There is a degenerative first-degree L3-4 spondylolisthesis. There is no lumbar compression fracture. I see no focal bone destruction. IMPRESSION: THERE IS SOME CONSTIPATION. THERE IS SOME MILD INFLAMMATORY CHANGES IN THE LEFT MID ABDOMEN AT THE LE FT PARACOLIC GUTTER THAT IS A CHANGE COMPARED TO LAST EXAM. THIS COULD RELATE TO MILD COLITIS. THERE IS HIATAL HERNIA UNCHANGED.
[2019-01-02] MEDS ORDERED: MORPHINE SULFATE 4 MG/ML SYRINGE IVP STA (18:59)
[2019-01-02] MEDS ORDERED: NALOXONE 0.4 MG/ML 1 ML VIAL IV PRN (19:39)
[2019-01-02] MEDS ORDERED: ONDANSETRON 4 MG/2 ML VIAL IVP PRN (19:39)
[2019-01-02] MEDS: SODIUM CHLORIDE 0.9% 1,000 ML IV SCH (20:14)
[2019-01-02 20:42] VITALS: BMI 25.3
[2019-01-02] MEDS: metroNIDAZOLE-NS PMX 500 MG in SALINE 1 100ML.BAG IVPB SCH (22:55)
[2019-01-02] MEDS: MORPHINE SULFATE 4 MG/ML SYRINGE IV PRN (23:35)
[2019-01-03] MEDS: MORPHINE SULFATE 4 MG/ML SYRINGE IV PRN ×4 (03:20→20:15)
[2019-01-03] MEDS: metroNIDAZOLE-NS PMX 500 MG in SALINE 1 100ML.BAG IVPB SCH ×3 (04:59→23:33)
[2019-01-03] MEDS: LEVOTHYROXINE 25 MCG TAB PO SCH (06:08)
[2019-01-03] MEDS: busPIRone HCl 10 MG TAB PO SCH ×2 (07:54→20:28)
[2019-01-03] MEDS: FLUoxetine HCL 20 MG CAP PO SCH (07:54)
[2019-01-03] MEDS: POTASSIUM CHLORIDE ER 10 MEQ TAB.ER.PRT PO SCH ×2 (07:55→20:16)
[2019-01-03] MEDS: LOSARTAN 50 MG TAB PO SCH (07:55)
[2019-01-03] MEDS: CHOLECALCIFEROL 1,000 UNIT TAB PO SCH (07:55)
[2019-01-03] MEDS: cloNIDine HCL 0.1 MG TAB PO SCH (07:55)
[2019-01-03] MEDS: ASCORBIC ACID 500 MG TAB PO SCH (07:55)
[2019-01-03] MEDS: ASPIRIN 325 MG TAB PO SCH ×2 (07:57→08:00)
[2019-01-03] MEDS: OXYBUTYNIN 10 MG TAB.ER.24 PO SCH (08:01)
[2019-01-03] MEDS: OLANZapine 10 MG TAB PO SCH (08:01)
[2019-01-03] MEDS ORDERED: NON-FORMULARY DRUG (Fish Oil/Dha/Epa [Fish Oil 1,200 Mg Fish Oil] 1 CAP) PO SCH (09:00)
[2019-01-03] MEDS: SODIUM CHLORIDE 0.9% 1,000 ML IV SCH (12:02)
[2019-01-03] MEDS: LACTULOSE 20 GM/30 ML CUP PO SCH ×3 (12:04→20:17)
--- NOTE | 2019-01-03 12:17 | P.HPIM ---
History of Present Illness H&P Date: 01/03/19 Chief Complaint: Abdominal pain and constipation This is a 73-year-old female, patient of [facility]. She has a known past medical history of diabetes mellitus, hyperlipidemia, hypertension, hypothyroidism, irritable bowel syndrome, ventral hernia with previous surgery, and lap band surgery in 2000. Patient was hospitalized in October and at that time did have an EGD showing duodenitis gastritis and hiatal hernia. She was discharged with Protonix 40 mg daily and follow up with GI service. Patient has not been taking the Protonix. She presents to the hospital with complaints of lower abdominal pain with no bowel movement 4 weeks. She has been having cramping abdominal pain and describes him as "labor pains". Patient did try mag citrate with no results. Patient also has been having some dry heaves and nausea. No actual vomiting. She reports passing gas that started this morning. She's been requiring IV morphine for pain. Computed tomography scan of the abdomen and pelvis showing some constipation. There is some mild inflammatory changes in the left mid abdomen at the left paracolic gutter that is a change compared to last exam. This could relate to mild colitis. There is a hiatal hernia unchanged. Patient started on Rocephin and Flagyl in the ER. She did have slight elevation of liver enzymes AST 39 ALT 76 and alk phos 192. White count 14.2. Patient does report a previous cholecystectomy. On computed tomography scan abdomen there had been evidence of a mild prominent common bile duct. GI and surgical services have been consulted. Patient denies any chest pain or shortness of breath. Denies any burning with urination. Patient does report a previous colonoscopy about 5 years ago. She reports that it was normal . Review of Systems Please refer to HPI otherwise unremarkable Past Medical History Past Medical History: Diabetes Mellitus, Hyperlipidemia, Hypertension, Thyroid Disorder Additional Past Medical History / Comment(s): Type 2 DM (resolved), Hypothyroidism, IBS History of Any Multi-Drug Resistant Organisms: None Reported Past Surgical History: Appendectomy, Bariatric Surgery, Cholecystectomy, Hernia Repair, Tonsillectomy, Tubal Ligation Additional Past Surgical History / Comment(s): lap band placed 2000(??) Past Anesthesia/Blood Transfusion Reactions: No Reported Reaction Additional Past Anesthesia/Blood Transfusion Reaction / Comment(s): No blood transfusion to date Past Psychological History: Anxiety, Depression Smoking Status: Former smoker Past Alcohol Use History: None Reported Past Drug Use History: None Reported Additional Drug Use History / Comment(s): 1/2 pack /day x 50 years (off and on) - Past Family History Father Family Medical History: Cancer Additional Family Medical History / Comment(s): Prostate and bone cancer Mother Family Medical History: Dementia Medications and Allergies Home Medications Medication Instructions Recorded Confirmed Type Aspirin EC [Ecotrin] 325 mg PO DAILY 07/28/16 01/02/19 History HYDROcodone/APAP 7.5-325MG [[place] 1 tab PO BID PRN 02/16/18 01/02/19 History 7.5-325] Levothyroxine Sodium [Synthroid] 25 mcg PO DAILY 02/16/18 01/02/19 History OLANZapine [ZyPREXA] 10 mg PO DAILY 02/16/18 01/02/19 History Pravastatin Sodium [Pravachol] 40 mg PO HS 02/16/18 01/02/19 History busPIRone HCl [Buspar] 10 mg PO BID 02/16/18 01/02/19 History Potassium Chloride [Klor-Con 10] 10 meq PO BID 03/11/18 01/02/19 History Cholecalciferol [Vitamin D3] 1,000 unit PO DAILY 09/19/18 01/02/19 History FLUoxetine HCL [PROzac] 60 mg PO DAILY 10/31/18 01/02/19 History Oxybutynin Chloride [Ditropan XL] 10 mg PO DAILY 12/14/18 01/02/19 History Ascorbic Acid [Vitamin C] 1,000 mg PO DAILY 01/02/19 01/02/19 History Fish Oil/Dha/Epa [Fish Oil 1,200 1 cap PO QID 01/02/19 01/02/19 History mg Fish Oil] Loperamide HCl [Imodium A-D] 2 mg PO DAILY 01/02/19 01/02/19 History Losartan Potassium 50 mg PO DAILY 01/02/19 01/02/19 History cloNIDine HCL [Catapres] 0.1 mg PO BID 01/02/19 01/02/19 History Allergies Allergy/AdvReac Type Severity Reaction Status Date / Time ciprofloxacin [From Cipro] Allergy Severe Itching Verified 01/02/19 20:13 Physical Exam Vitals: Vital Signs Temp Pulse Pulse Resp BP BP Pulse Ox 01/03/19 08:00 16 01/03/19 07:00 98.0 F 67 16 138/69 95 01/03/19 02:00 98 F 76 20 130/71 95 01/02/19 21:30 98.4 F 78 20 154/98 95 01/02/19 21:03 18 01/02/19 20:24 98.5 F 80 18 160/95 100 01/02/19 20:10 164/121 96 01/02/19 20:00 204/100 97 01/02/19 19:50 204/100 01/02/19 19:40 204/100 01/02/19 19:30 189/107 01/02/19 19:20 189/107 98 01/02/19 19:10 189/107 97 01/02/19 19:00 177/118 97 01/02/19 18:50 207/93 97 01/02/19 18:40 207/93 97 01/02/19 18:30 98 01/02/19 18:20 98 01/02/19 18:00 18 201/93 100 01/02/19 17:30 18 182/117 97 01/02/19 16:52 98 F 93 18 196/104 97 Intake and Output 01/02/19 01/03/19 01/03/19 22:59 06:59 14:59 Intake Total 0 600 Balance 0 600 Intake: Intake, IV Titration 600 Amount Sodium Chloride 0.9% 1, 600 000 ml @ 75 mls/hr IV . [id number] [facility] Rx#:[id number] Oral 0 0 Other: # Voids 0 1 Weight 58.876 kg Head normocephalic Neck supple Lungs clear to auscultation bilaterally no wheezing or crackles Heart regular rate and rhythm S1-S2, no rub or gallop Abdomen is soft tender in the lower abdomen bilaterally nondistended positive bowel sounds no hepatosplenomegaly Extremities no edema Neuro alert and orientated to 3 Results CBC & Chem 7: 01/02/19 17:25 01/02/19 17:25 Labs: Abnormal Lab Results - Last 24 Hours (Table) 01/02/19 01/02/19 01/02/19 Range/Units 17:25 17:25 17:25 WBC 14.2 H (3.8-10.6) k/uL Hct 46.2 H (34.0-46.0) % Neutrophils # 10.3 H (1.3-7.7) k/uL Glucose 145 H (74-99) mg/dL Calcium 10.9 H (8.4-10.2) mg/dL AST 39 H (14-36) U/L ALT 76 H (9-52) U/L Alkaline Phosphatase 192 H (38-126) U/L Urine Appearance Cloudy H (Clear) Urine Protein Trace H (Negative) Urine Ketones Trace H (Negative) Ur Leukocyte Esterase Trace H (Negative) Urine WBC 6 H (0-5) /hpf Ur Squamous Epith Cells 6 H (0-4) /hpf Amorphous Sediment Rare H (None) /hpf Urine Mucus Rare H (None) /hpf Thrombosis Risk Factor Assmnt - Choose All That Apply Each Factor Represents 1 point: Obesity (BMI >25) Each Risk Factor Represents 3 Points: Age 75 years or older Thrombosis Risk Factor Assessment Total Risk Factor Score: 4 Thrombosis Risk Factor Assessment Level: Moderate Risk Assessment and Plan Assessment: 1. Abdominal pain: Computed tomography scan revealing some constipation. There is some mild inflammatory changes in the left mid abdomen at the left pericolic gutter. This could relate to mild colitis. Patient started on IV Rocephin and Flagyl in the ER. GI and surgical service has been consulted. Surgery has placed patient on lactulose for the constipation. Continue morphine as needed for pain control 2. Mildly elevated LFTs. CAT scan did reveal mild prominent common bile duct. Repeat LFTs in a.m. We'll hold patient's Pravachol 3. Recent hospitalization in October with duodenitis, gastritis and hiatal hernia noted on EGD. Patient had been discharged on Protonix. Patient has not been taking the Protonix 4. Hyperlipidemia: Hold statin due to elevated LFTs 5. History of ventral hernia with surgical repair in March 2018 6. History of laparoscopic banding surgery in 2000 7. Essential hypertension 10. Hypothyroidism 11. History of depression and anxiety 12. Dry skin and itching. Add Eucerin cream twice a day. Also add Benadryl 25 mg by mouth every 8 hours as needed. Monitor for any rash. No evidence of any ALLERGY or rash at this time GI prophylaxis IV Protonix and DVT prophylaxis subcu heparin Time with Patient: Greater than 30 (Greater than 50% of the total time spent in counseling and coordination of care.I performed an examination of the patient and discussed their management with the physician Bindery Manager. I have reviewed the Physician Bindery Manager's notes and agree with the documented findings and plan of care)
[2019-01-03] MEDS: MINERAL OIL-WHITE PETROLATUM 120 GM JAR TOPICAL SCH ×2 (12:30→20:14)
[2019-01-03] MEDS: PANTOPRAZOLE 40 MG/10 ML VIAL IVP SCH (13:03)
--- NOTE | 2019-01-03 13:31 | P.GSCN ---
History of Present Illness Consult date: 01/03/19 Reason for Consult: hernia repair, abdominal pain Requesting physician: Hubert Luo History of present illness: CHIEF COMPLAINT: Abdominal pain HISTORY OF PRESENT ILLNESS: 73-year-old female who presented to the emergency room with a chief complaint of abdominal pain. Patient reports constipation and states she has not had a bowel movement in almost a month. She reports nausea and dry heaves. Patient states she has a hernia repair scheduled with Dr. Segovia for this Thursday but has canceled her surgery. White count 14.2 on admission. She was started on antibiotics in the emergency room. PAST MEDICAL HISTORY: See list. PAST SURGICAL HISTORY: See list. SOCIAL HISTORY: No illicit drug use. REVIEW OF SYSTEMS: CONSTITUTIONAL: Denies fever or chills. HEENT: Denies blurred vision, vision changes, or eye pain. Denies hemoptysis CARDIOVASCULAR: Denies chest pain or pressure. RESPIRATORY: No shortness of breath. GASTROINTESTINAL: Refer to [facility] for pertinent findings HEMATOLOGIC: Denies bleeding disorders. GENITOURINARY: Denies any blood in urine. SKIN: Denies pruitis. Denies rash. PHYSICAL EXAM: VITAL SIGNS: Reviewed. GENERAL: Well-developed in no acute distress. HEENT: No sclera icterus. Extraocular movements grossly intact. Moist buccal mucosa. Head is atraumatic, normocephalic. ABDOMEN: Soft. Mildly tender upon palpation. Positive bowel sounds. Hernia present. NEUROLOGIC: Alert and oriented. Cranial nerves II through XII grossly intact. IMAGING: CT of abdomen and pelvis: Constipation. Mild inflammatory changes in the left midabdomen at the left pericolic gutter there is a change compared to last exam. This could relate to mild clonus. There is hiatal hernia unchanged. ASSESSMENT: 1. Constipation 2. Possible mild colitis 3. Hiatal hernia 4. Leukocytosis 5. History of gastric banding PLAN: 1. GI on consult. Await evaluation 2. Continue antibiotics. Monitor WBC 3. Clear liquid diet as tolerated 4. Lactulose TID for constipation 5. Patients hernia surgery for 01/05/19 has been cancelled Nurse practitioner note has been reviewed by physician. Signing provider agrees with the documented findings, assessment, and plan of care. Past Medical History Past Medical History: Diabetes Mellitus, Hyperlipidemia, Hypertension, Thyroid Disorder Additional Past Medical History / Comment(s): Type 2 DM (resolved), Hypothyroidism, IBS History of Any Multi-Drug Resistant Organisms: None Reported Past Surgical History: Appendectomy, Bariatric Surgery, Cholecystectomy, Hernia Repair, Tonsillectomy, Tubal Ligation Additional Past Surgical History / Comment(s): lap band placed 2000(??) Past Anesthesia/Blood Transfusion Reactions: No Reported Reaction Additional Past Anesthesia/Blood Transfusion Reaction / Comm: No blood transfusion to date Past Psychological History: Anxiety, Depression Smoking Status: Former smoker Past Alcohol Use History: None Reported Past Drug Use History: None Reported Additional Drug Use History / Comment(s): 1/2 pack /day x 50 years (off and on) - Past Family History Father Family Medical History: Cancer Additional Family Medical History / Comment(s): Prostate and bone cancer Mother Family Medical History: Dementia Medications and Allergies Home Medications Medication Instructions Recorded Confirmed Type Aspirin EC [Ecotrin] 325 mg PO DAILY 07/28/16 01/02/19 History HYDROcodone/APAP 7.5-325MG [[place] 1 tab PO BID PRN 02/16/18 01/02/19 History 7.5-325] Levothyroxine Sodium [Synthroid] 25 mcg PO DAILY 02/16/18 01/02/19 History OLANZapine [ZyPREXA] 10 mg PO DAILY 02/16/18 01/02/19 History Pravastatin Sodium [Pravachol] 40 mg PO HS 02/16/18 01/02/19 History busPIRone HCl [Buspar] 10 mg PO BID 02/16/18 01/02/19 History Potassium Chloride [Klor-Con 10] 10 meq PO BID 03/11/18 01/02/19 History Cholecalciferol [Vitamin D3] 1,000 unit PO DAILY 09/19/18 01/02/19 History FLUoxetine HCL [PROzac] 60 mg PO DAILY 10/31/18 01/02/19 History Oxybutynin Chloride [Ditropan XL] 10 mg PO DAILY 12/14/18 01/02/19 History Ascorbic Acid [Vitamin C] 1,000 mg PO DAILY 01/02/19 01/02/19 History Fish Oil/Dha/Epa [Fish Oil 1,200 1 cap PO QID 01/02/19 01/02/19 History mg Fish Oil] Loperamide HCl [Imodium A-D] 2 mg PO DAILY 01/02/19 01/02/19 History Losartan Potassium 50 mg PO DAILY 01/02/19 01/02/19 History cloNIDine HCL [Catapres] 0.1 mg PO BID 01/02/19 01/02/19 History Allergies Allergy/AdvReac Type Severity Reaction Status Date / Time ciprofloxacin [From Cipro] Allergy Severe Itching Verified 01/02/19 20:13 Surgical - Exam Vital Signs Temp Pulse Resp BP Pulse Ox 98 F 93 18 196/104 97 01/02/19 16:52 01/02/19 16:52 01/02/19 16:52 01/02/19 16:52 01/02/19 16:52 Results - Labs 01/02/19 17:25 01/02/19 17:25 Abnormal Lab Results - Last 24 Hours (Table) 01/02/19 01/02/19 01/02/19 Range/Units 17:25 17:25 17:25 WBC 14.2 H (3.8-10.6) k/uL Hct 46.2 H (34.0-46.0) % Neutrophils # 10.3 H (1.3-7.7) k/uL Glucose 145 H (74-99) mg/dL Calcium 10.9 H (8.4-10.2) mg/dL AST 39 H (14-36) U/L ALT 76 H (9-52) U/L Alkaline Phosphatase 192 H (38-126) U/L Urine Appearance Cloudy H (Clear) Urine Protein Trace H (Negative) Urine Ketones Trace H (Negative) Ur Leukocyte Esterase Trace H (Negative) Urine WBC 6 H (0-5) /hpf Ur Squamous Epith Cells 6 H (0-4) /hpf Amorphous Sediment Rare H (None) /hpf Urine Mucus Rare H (None) /hpf Diabetes panel 01/02/19 Range/Units 17:25 Sodium 139 (137-145) mmol/L Potassium 3.6 (3.5-5.1) mmol/L Chloride 103 (98-107) mmol/L Carbon Dioxide 22 (22-30) mmol/L BUN 9 (7-17) mg/dL Creatinine 0.81 (0.52-1.04) mg/dL Glucose 145 H (74-99) mg/dL Calcium 10.9 H (8.4-10.2) mg/dL AST 39 H (14-36) U/L ALT 76 H (9-52) U/L Alkaline Phosphatase 192 H (38-126) U/L Total Protein 7.5 (6.3-8.2) g/dL Albumin 4.4 (3.5-5.0) g/dL Calcium panel 01/02/19 Range/Units 17:25 Calcium 10.9 H (8.4-10.2) mg/dL Albumin 4.4 (3.5-5.0) g/dL Pituitary panel 01/02/19 Range/Units 17:25 Sodium 139 (137-145) mmol/L Potassium 3.6 (3.5-5.1) mmol/L Chloride 103 (98-107) mmol/L Carbon Dioxide 22 (22-30) mmol/L BUN 9 (7-17) mg/dL Creatinine 0.81 (0.52-1.04) mg/dL Glucose 145 H (74-99) mg/dL Calcium 10.9 H (8.4-10.2) mg/dL Adrenal panel 01/02/19 Range/Units 17:25 Sodium 139 (137-145) mmol/L Potassium 3.6 (3.5-5.1) mmol/L Chloride 103 (98-107) mmol/L Carbon Dioxide 22 (22-30) mmol/L BUN 9 (7-17) mg/dL Creatinine 0.81 (0.52-1.04) mg/dL Glucose 145 H (74-99) mg/dL Calcium 10.9 H (8.4-10.2) mg/dL Total Bilirubin 0.6 (0.2-1.3) mg/dL AST 39 H (14-36) U/L ALT 76 H (9-52) U/L Alkaline Phosphatase 192 H (38-126) U/L Total Protein 7.5 (6.3-8.2) g/dL Albumin 4.4 (3.5-5.0) g/dL
[2019-01-03] MEDS: diphenhydrAMINE 25 MG CAP PO PRN ×2 (15:02→23:33)
[2019-01-03] MEDS ORDERED: SODIUM CHLORIDE 0.9% 500 ML 500 ML IV ONE (16:07)
[2019-01-03] MEDS: HEPARIN SODIUM,PORCINE 5,000 UNIT/ML 1 ML VIAL SQ SCH (20:14)
[2019-01-03] MEDS: AZTREONAM 2 GM in SODIUM CHLORIDE 0.9% 100 ML IVPB SCH (20:16)
[2019-01-03] MEDS ORDERED: PRAVASTATIN SODIUM 40 MG TAB PO SCH (21:00)
--- NOTE | 2019-01-03 22:02 | P.CONS ---
History of Present Illness - Reason for Consult Consult date: 01/03/19 Colitis Requesting physician: Familia Wolf - Chief Complaint Constipation, abdominal pain - History of Present Illness 73-year-old female with medical history significant for diabetes mellitus, hyperlipidemia, hypertension, hypothyroidism, irritable bowel syndromediarrhea predominant, prior lap band surgery in 2000, and gastritis and duodenitis on recent EGD who presented with complaints of abdominal pain and constipation. The patient reports a history of diarrhea at baseline for which she uses Imodium daily. She reports over the past week she has been unable to have a bowel movement. She does report she is passing gas. She reports associated abdominal pain in the periumbilical region described as sharp and cramping in nature. She denies any vomiting. She was previously evaluated for upper abdominal pain with EGD and with findings of a hiatal hernia, gastritis and duodenitis. On presentation to the hospital she had a computed tomography scan of the abdomen with findings of constipation, possible colitis and a hiatal hernia. WBC 14.2, hemoglobin 14.8, platelet count 287,000, lipase 66, total bilirubin 0.6 alkaline phosphatase 192, AST 39 and ALT 76. Last colonoscopy was approximately 4-5 years ago per the patient. Review of Systems REVIEW OF SYSTEMS: CONSTITUTIONAL: Denies any fevers, chills, weight change or fatigue. CARDIOVASCULAR: Denies any chest pain, palpitations high or low blood pressures RESPIRATORY: Denies any shortness of breath, hemoptysis or cough. GENITOURINARY: No dysuria or hematuria. MUSCULOSKELETAL: No weakness reported. SKIN: Denies any new rashes or lesions, jaundice or pallor. PSYCHIATRIC: Denies any depression or anxiety. NEUROLOGY: Denies headache, denies any new focal deficits. EARS/NOSE/THROAT: No recent hearing change, congestion, nasal discharge or sore throat. EYES: No pain in eyes, discharge or change in vision. GASTROINTESTINAL: As per HPI. Past Medical History Past Medical History: Diabetes Mellitus, Hyperlipidemia, Hypertension, Thyroid Disorder Additional Past Medical History / Comment(s): Type 2 DM (resolved), Hypothyroidism, IBS History of Any Multi-Drug Resistant Organisms: None Reported Past Surgical History: Appendectomy, Bariatric Surgery, Cholecystectomy, Hernia Repair, Tonsillectomy, Tubal Ligation Additional Past Surgical History / Comment(s): lap band placed 2000(??) Past Anesthesia/Blood Transfusion Reactions: No Reported Reaction Additional Past Anesthesia/Blood Transfusion Reaction / Comm: No blood transfusi on to date Past Psychological History: Anxiety, Depression Smoking Status: Former smoker Past Alcohol Use History: None Reported Past Drug Use History: None Reported Additional Drug Use History / Comment(s): 1/2 pack /day x 50 years (off and on) - Past Family History Father Family Medical History: Cancer Additional Family Medical History / Comment(s): Prostate and bone cancer Mother Family Medical History: Dementia Medications and Allergies Home Medications Medication Instructions Recorded Confirmed Type Aspirin EC [Ecotrin] 325 mg PO DAILY 07/28/16 01/02/19 History HYDROcodone/APAP 7.5-325MG [[place] 1 tab PO BID PRN 02/16/18 01/02/19 History 7.5-325] Levothyroxine Sodium [Synthroid] 25 mcg PO DAILY 02/16/18 01/02/19 History OLANZapine [ZyPREXA] 10 mg PO DAILY 02/16/18 01/02/19 History Pravastatin Sodium [Pravachol] 40 mg PO HS 02/16/18 01/02/19 History busPIRone HCl [Buspar] 10 mg PO BID 02/16/18 01/02/19 History Potassium Chloride [Klor-Con 10] 10 meq PO BID 03/11/18 01/02/19 History Cholecalciferol [Vitamin D3] 1,000 unit PO DAILY 09/19/18 01/02/19 History FLUoxetine HCL [PROzac] 60 mg PO DAILY 10/31/18 01/02/19 History Oxybutynin Chloride [Ditropan XL] 10 mg PO DAILY 12/14/18 01/02/19 History Ascorbic Acid [Vitamin C] 1,000 mg PO DAILY 01/02/19 01/02/19 History Fish Oil/Dha/Epa [Fish Oil 1,200 1 cap PO QID 01/02/19 01/02/19 History mg Fish Oil] Loperamide HCl [Imodium A-D] 2 mg PO DAILY 01/02/19 01/02/19 History Losartan Potassium 50 mg PO DAILY 01/02/19 01/02/19 History cloNIDine HCL [Catapres] 0.1 mg PO BID 01/02/19 01/02/19 History Allergies Allergy/AdvReac Type Severity Reaction Status Date / Time ciprofloxacin [From Cipro] Allergy Severe Itching Verified 01/02/19 20:13 metronidazole [From Flagyl] Allergy Intermediate Itching Verified 01/03/19 16:32 ceftriaxone Allergy Itching Verified 01/03/19 16:31 Physical Exam Vitals: Vital Signs Temp Pulse Resp BP Pulse Ox 01/03/19 19:17 97.5 F L 64 16 102/59 97 01/03/19 15:58 97.8 F 61 16 85/49 93 L 01/03/19 13:30 97.5 F L 62 16 94/54 93 L 01/03/19 08:00 16 01/03/19 07:00 98.0 F 67 16 138/69 95 01/03/19 02:00 98 F 76 20 130/71 95 Intake and Output 01/03/19 01/03/19 01/03/19 06:59 14:59 22:59 Intake Total 600 Output Total 25 Balance 600 -25 Intake: Intake, IV Titration 600 Amount Sodium Chloride 0.9% 1, 600 000 ml @ 75 mls/hr IV . [id number] [facility] Rx#:[id number] Oral 0 Output: Urine 25 Other: Voiding Method Toilet # Voids 0 1 1 # Bowel Movements 1 On physical examination, patient appears comfortable in no apparent distress. HEAD: Normocephalic, atraumatic. EYES: No scleral icterus. No conjunctival injection. MOUTH: No lesions, tongue midline. NECK: Trachea midline, no gross abnormalities. CHEST: Clear to auscultation with no wheezing or rhonchi appreciated. HEART: Regular rate and rhythm. ABDOMEN: Soft, obese. Bowel sounds are positive. No organomegaly. No guarding or rigidity. EXTREMITIES: No pedal edema. SKIN: No rashes, no jaundice. NEUROLOGIC: Alert and oriented x3. No focal deficits. Results CBC & Chem 7: 01/02/19 17:25 01/02/19 17:25 CT scan - abdomen: report reviewed (Computed tomography scan of the abdomen with findings of stool retention, possible colitis in hiatal hernia) Assessment and Plan (1) Colitis Narrative/Plan: Patient presenting with complaints of abdominal pain and constipation and findings of stool retention on computed tomography scan and possible colitis. Unclear if findings of inflammation are secondary to stool retention, ischemic or infectious process or other etiology. Current Visit: Yes Status: Acute Code(s): K52.9 - NONINFECTIVE GASTROENTERITIS AND COLITIS, UNSPECIFIED SNOMED Code(s): 43336433 (2) Transaminitis Current Visit: Yes Status: Acute Code(s): R74.0 - NONSPEC ELEV OF LEVELS OF TRANSAMNS & LACTIC ACID DEHYDRGNSE SNOMED Code(s): 070079319 (3) Abdominal pain Current Visit: No Status: Acute Code(s): R10.9 - UNSPECIFIED ABDOMINAL PAIN SNOMED Code(s): 80000978 (4) Irritable bowel syndrome with diarrhea Current Visit: No Status: Acute Code(s): K58.0 - IRRITABLE BOWEL SYNDROME WITH DIARRHEA SNOMED Code(s): 278966724 Plan: Supportive care Okay for diet Continue to monitor labs Appreciate recommendations from infectious disease Continue antibiotic therapy Lactulose 3 times a day ordered Tap water enema ordered Titration of medications according to patient's symptoms No plan for endoscopic evaluation at this time Continue Protonix therapy Thank you for allowing us to dissipate in the care of the patient we will agustin hartman to follow
[2019-01-04] MEDS: MORPHINE SULFATE 4 MG/ML SYRINGE IV PRN ×2 (02:04→06:14)
[2019-01-04] MEDS: SODIUM CHLORIDE 0.9% 1,000 ML IV SCH (04:15)
[2019-01-04] MEDS: cloNIDine HCL 0.1 MG TAB PO SCH ×3 (05:17→20:41)
[2019-01-04] MEDS: LEVOTHYROXINE 25 MCG TAB PO SCH (06:14)
[2019-01-04 08:39] LABS: Basophils % (A) 1 %; Eosinophils # (A) 0.5 k/uL (0-0.7); Eosinophils % (A) 8 %; HCT 33.8 % (34.0-46.0); Hypochromasia Moderate; Lymphocytes # (A) 1.6 k/uL (1.0-4.8); Lymphocytes % (A) 25 %; MCH 31.7 pg (25.0-35.0); MCHC 31.4 g/dL (31.0-37.0); MCV 101.2 fL (80.0-100.0); Macrocytosis Slight; Mean Platelet Volume 6.9; Monocytes # (A) 0.4 k/uL (0-1.0); Monocytes % (A) 6 %; Neutrophils # (A) 3.8 k/uL (1.3-7.7); Neutrophils % (A) 58 %; Platelet Count 215 k/uL (150-450); RBC 3.34 m/uL (3.80-5.40); RDW 14.7 % (11.5-15.5); WBC 6.5 k/uL (3.8-10.6)
[2019-01-04] MEDS: metroNIDAZOLE-NS PMX 500 MG in SALINE 1 100ML.BAG IVPB SCH (08:42)
[2019-01-04 08:46] LABS: HGB 10.6 gm/dL (11.4-16.0)
[2019-01-04] MEDS: LOSARTAN 50 MG TAB PO SCH ×2 (08:49→17:07)
[2019-01-04] MEDS: LACTULOSE 20 GM/30 ML CUP PO SCH (08:49)
[2019-01-04] MEDS: ASCORBIC ACID 500 MG TAB PO SCH (08:56)
[2019-01-04] MEDS: busPIRone HCl 10 MG TAB PO SCH ×2 (08:57→20:40)
[2019-01-04] MEDS: OLANZapine 10 MG TAB PO SCH (08:57)
[2019-01-04] MEDS: OXYBUTYNIN 10 MG TAB.ER.24 PO SCH (08:58)
[2019-01-04] MEDS: ASPIRIN 325 MG TAB PO SCH (09:01)
[2019-01-04] MEDS: MINERAL OIL-WHITE PETROLATUM 120 GM JAR TOPICAL SCH ×2 (09:01→20:40)
[2019-01-04 09:03] LABS: Albumin 2.8 g/dL (3.5-5.0); Calcium 9.1 mg/dL (8.4-10.2); Potassium 3.6 mmol/L (3.5-5.1); Total Bilirubin 0.3 mg/dL (0.2-1.3)
[2019-01-04] MEDS: CHOLECALCIFEROL 1,000 UNIT TAB PO SCH (09:08)
[2019-01-04] MEDS: FLUoxetine HCL 20 MG CAP PO SCH (09:08)
[2019-01-04] MEDS: PANTOPRAZOLE 40 MG/10 ML VIAL IVP SCH (09:09)
[2019-01-04] MEDS: HEPARIN SODIUM,PORCINE 5,000 UNIT/ML 1 ML VIAL SQ SCH ×2 (09:09→20:41)
[2019-01-04] MEDS: POTASSIUM CHLORIDE ER 10 MEQ TAB.ER.PRT PO SCH ×2 (09:09→20:41)
[2019-01-04] MEDS: AZTREONAM 2 GM in SODIUM CHLORIDE 0.9% 100 ML IVPB SCH ×2 (10:31→20:41)
[2019-01-04] MEDS: diphenhydrAMINE 25 MG CAP PO PRN ×3 (10:37→23:55)
--- NOTE | 2019-01-04 11:21 | P.CONS ---
History of Present Illness - Reason for Consult Consult date: 01/03/19 Colitis and antibiotics allergy Requesting physician: Familia Wolf - Chief Complaint Abdominal pain x 4 days - History of Present Illness Patient is 73-year-old female presenting to the ER at [facility] with lower abdominal pain that has been going on for 3-4 days patient pain is most of the lower abdominal area describing it to be cramping almost 7-8 out of 10 and no radiation patientalso assisted with constipation and no bowel movement for 4 days patient try some Excedrin without any improvement with the symptom the patient was evaluated by the ER physician patient has been afebrile on presentation however did have elevated white count of 14,[address] of abdominal pelvis completed evidence of colitis but no evidence of any abs cess patient did have previous problems with a Cipro allergy with itching has the patient was started on Rocephin and Flagyl apparently the patient have some problem with itching those antibiotics were discontinued and infectious disease was consulted for further recommendation regarding antibiotic therapy, patient currently denies any shortness of breath no tongue swelling or any lip swelling and no rash Review of Systems CONSTITUTIONAL: Positive for weakness.no Fever EYES: No complaint. ENT:No complaint. RESPIRATORY: No complaint. CARDIOVASCULAR: No complaint. GENITOURINARY: No complaint. GASTROINTESTINAL: As per history of present illness MUSCULOSKELETAL: No complaint. INTEGUMENTARY: As per history of present illness. PSYCHOLOGICAL: No complaint. ENDOCRINE: No complaint. NEUROLOGIC: No complaint. Past Medical History Past Medical History: Diabetes Mellitus, Hyperlipidemia, Hypertension, Thyroid Disorder Additional Past Medical History / Comment(s): Type 2 DM (resolved), Hypothyroidism, IBS History of Any Multi-Drug Resistant Organisms: None Reported Past Surgical History: Appendectomy, Bariatric Surgery, Cholecystectomy, Hernia Repair, Tonsillectomy, Tubal Ligation Additional Past Surgical History / Comment(s): lap band placed 2000(??) Past Anesthesia/Blood Transfusion Reactions: No Reported Reaction Additional Past Anesthesia/Blood Transfusion Reaction / Comm: No blood transfusion to date Past Psychological History: Anxiety, Depression Smoking Status: Former smoker Past Alcohol Use History: None Reported Past Drug Use History: None Reported Additional Drug Use History / Comment(s): 1/2 pack /day x 50 years (off and on) - Past Family History Father Family Medical History: Cancer Additional Family Medical History / Comment(s): Prostate and bone cancer Mother Family Medical History: Dementia Medications and Allergies Home Medications Medication Instructions Recorded Confirmed Type Aspirin EC [Ecotrin] 325 mg PO DAILY 07/28/16 01/02/19 History HYDROcodone/APAP 7.5-325MG [[place] 1 tab PO BID PRN 02/16/18 01/02/19 History 7.5-325] Levothyroxine Sodium [Synthroid] 25 mcg PO DAILY 02/16/18 01/02/19 History OLANZapine [ZyPREXA] 10 mg PO DAILY 02/16/18 01/02/19 History Pravastatin Sodium [Pravachol] 40 mg PO HS 02/16/18 01/02/19 History busPIRone HCl [Buspar] 10 mg PO BID 02/16/18 01/02/19 History Potassium Chloride [Klor-Con 10] 10 meq PO BID 03/11/18 01/02/19 History Cholecalciferol [Vitamin D3] 1,000 unit PO DAILY 09/19/18 01/02/19 History FLUoxetine HCL [PROzac] 60 mg PO DAILY 10/31/18 01/02/19 History Oxybutynin Chloride [Ditropan XL] 10 mg PO DAILY 12/14/18 01/02/19 History Ascorbic Acid [Vitamin C] 1,000 mg PO DAILY 01/02/19 01/02/19 History Fish Oil/Dha/Epa [Fish Oil 1,200 1 cap PO QID 01/02/19 01/02/19 History mg Fish Oil] Loperamide HCl [Imodium A-D] 2 mg PO DAILY 01/02/19 01/02/19 History Losartan Potassium 50 mg PO DAILY 01/02/19 01/02/19 History cloNIDine HCL [Catapres] 0.1 mg PO BID 01/02/19 01/02/19 History Allergies Allergy/AdvReac Type Severity Reaction Status Date / Time ciprofloxacin [From Cipro] Allergy Severe Itching Verified 01/02/19 20:13 metronidazole [From Flagyl] Allergy Intermediate Itching Verified 01/03/19 16:32 ceftriaxone Allergy Itching Verified 01/03/19 16:31 Physical Exam Vitals: Vital Signs Temp Pulse Pulse Resp BP BP Pulse Ox 01/03/19 13:30 97.5 F L 62 16 94/54 93 L 01/03/19 08:00 16 01/03/19 07:00 98.0 F 67 16 138/69 95 01/03/19 02:00 98 F 76 20 130/71 95 01/02/19 21:30 98.4 F 78 20 154/98 95 01/02/19 21:03 18 01/02/19 20:24 98.5 F 80 18 160/95 100 01/02/19 20:10 164/121 96 01/02/19 20:00 204/100 97 01/02/19 19:50 204/100 01/02/19 19:40 204/100 01/02/19 19:30 189/107 01/02/19 19:20 189/107 98 01/02/19 19:10 189/107 97 01/02/19 19:00 177/118 97 01/02/19 18:50 207/93 97 01/02/19 18:40 207/93 97 01/02/19 18:30 98 01/02/19 18:20 98 01/02/19 18:00 18 201/93 100 01/02/19 17:30 18 182/117 97 01/02/19 16:52 98 F 93 18 196/104 97 Intake and Output 01/03/19 01/03/19 01/03/19 06:59 14:59 22:59 Intake Total 600 Output Total 25 Balance 600 -25 Intake: Intake, IV Titration 600 Amount Sodium Chloride 0.9% 1, 600 000 ml @ 75 mls/hr IV . [id number] [facility] Rx#:[id number] Oral 0 Output: Urine 25 Other: Voiding Method Toilet # Voids 0 1 1 # Bowel Movements 1 GENERAL DESCRIPTION: Elderly female lying in bed, no distress. No tachypnea or accessory muscle of respiration use. HEENT: Shows Pallor , no scleral icterus. Oral mucous membrane is dry. No pharyngeal erythema or thrush NECK: Trachea central, no thyromegaly. LUNGS: Unlabored breathing. Clear to auscultation anteriorly. No wheeze or crackle. HEART: S1, S2, regular rate and rhythm. No loud murmur ABDOMEN: Soft, left lower quadrant tenderness , no guarding or rigidity, no organomegaly EXTREMITIES: No edema of feet. SKIN: No rash, no masses palpable. NEUROLOGICAL: The patient is awake, alert, oriented x3, mood and affect normal. Results CBC & Chem 7: 01/04/19 08:12 01/04/19 08:12 Labs: Abnormal Lab Results - Last 24 Hours (Table) 01/02/19 01/02/19 01/02/19 Range/Units 17:25 17:25 17:25 WBC 14.2 H (3.8-10.6) k/uL Hct 46.2 H (34.0-46.0) % Neutrophils # 10.3 H (1.3-7.7) k/uL Glucose 145 H (74-99) mg/dL Calcium 10.9 H (8.4-10.2) mg/dL AST 39 H (14-36) U/L ALT 76 H (9-52) U/L Alkaline Phosphatase 192 H (38-126) U/L Urine Appearance Cloudy H (Clear) Urine Protein Trace H (Negative) Urine Ketones Trace H (Negative) Ur Leukocyte Esterase Trace H (Negative) Urine WBC 6 H (0-5) /hpf Ur Squamous Epith Cells 6 H (0-4) /hpf Amorphous Sediment Rare H (None) /hpf Urine Mucus Rare H (None) /hpf Assessment and Plan Assessment: 1-patient admitted hospital with abdominal pain and constipation in this patient who did have elevated white count slight tenderness on the left lower quadrant with a CT suspicion for colitis likely diverticulitis with evidence of any perforation or abscess noted to call for enteric gram-negative both aerobes and anaerobes 2-patient who do have multiple antibiotic allergies that would limit the number of antibiotic that could be safe to use, however Flagyl is less likely to cause any itching or allergic reaction and had been on Rocephin causing her symptoms of itching without evidence of any anaphylaxis Plan: 1-we will start the patient on Azactam 2 g every 12hr along with Flagyl 500 by mouth every 8hr 2-gentle IV fluid 3-with no good oral option left patient will likely need a midline for outpatient IV antibiotic therapy We will follow on clinical condition and adjust medication further if needed Thank you for this consultation will follow this patient along with you Time with Patient: Greater than 30
--- NOTE | 2019-01-04 11:25 | P.PN ---
Subjective Progress Note Date: 01/04/19 Principal diagnosis: abdominal pain AP improved. BM x 3 nonbloody. Tolerating clears. Afebrile. TB 0.3. AST 91. ALT 115. AP 123. WBC 6.5. Hgb 10.6. Objective - Vital Signs Vital signs: Vital Signs Temp 98 F 01/04/19 08:16 Pulse 67 01/04/19 08:16 Resp 20 01/04/19 08:16 BP 114/60 01/04/19 08:16 Pulse Ox 97 01/04/19 08:16 Intake & Output 01/03/19 01/04/19 01/04/19 18:59 06:59 18:59 Output Total 25 Balance -25 Output: Urine 25 Other: Voiding Method Toilet # Voids 1 1 # Bowel Movements 1 3 3 - Constitutional General appearance: Present: average body habitus - EENT Eyes: Present: normal appearance Ears: bilateral: normal - Neck Neck: Present: normal ROM - Respiratory Respiratory: bilateral: CTA - Cardiovascular Rhythm: regular Heart sounds: normal: S1, S2 - Gastrointestinal Gastrointestinal Comment(s): mild mid abdominal tenderness No R/G. General gastrointestinal: Present: soft - Integumentary Integumentary: Present: normal turgor - Neurologic Neurologic: Present: CNII-XII intact - Labs CBC & Chem 7: 01/04/19 08:12 01/04/19 08:12 Labs: Abnormal Lab Results - Last 24 Hours (Table) 01/04/19 01/04/19 Range/Units 08:12 08:12 RBC 3.34 L (3.80-5.40) m/uL Hgb 10.6 L D (11.4-16.0) gm/dL Hct 33.8 L (34.0-46.0) % MCV 101.2 H (80.0-100.0) fL Glucose 115 H (74-99) mg/dL AST 91 H (14-36) U/L ALT 115 H (9-52) U/L Total Protein 5.0 L (6.3-8.2) g/dL Albumin 2.8 L (3.5-5.0) g/dL Microbiology - Last 24 Hours (Table) 01/03/19 14:35 Urine Culture - Preliminary Urine,Voided Assessment and Plan (1) Colitis Current Visit: Yes Status: Acute Code(s): K52.9 - NONINFECTIVE GASTROENTERITIS AND COLITIS, UNSPECIFIED SNOMED Code(s): 50601603 (2) Transaminitis Current Visit: Yes Status: Acute Code(s): R74.0 - NONSPEC ELEV OF LEVELS OF TRANSAMNS & LACTIC ACID DEHYDRGNSE SNOMED Code(s): 497936382 (3) Abdominal pain Current Visit: No Status: Acute Code(s): R10.9 - UNSPECIFIED ABDOMINAL PAIN SNOMED Code(s): 55910640 (4) Hx of laparoscopic gastric banding Current Visit: No Status: Acute Code(s): Z98.84 - BARIATRIC SURGERY STATUS SNOMED Code(s): 856788599 (5) Irritable bowel syndrome with diarrhea Current Visit: No Status: Acute Code(s): K58.0 - IRRITABLE BOWEL SYNDROME WITH DIARRHEA SNOMED Code(s): 492685486 Plan: Supportive care Okay for diet advancement as tolerated Continue to monitor labs Appreciate recommendations from infectious disease Continue antibiotic therapy Lactulose 3 times a day ordered Tap water enema ordered Titration of medications according to patient's symptoms No plan for endoscopic evaluation at this time Continue Protonix therapy Assessment and plan of care discussed with Dr. Zazueta
--- NOTE | 2019-01-04 11:57 | P.PN ---
Subjective Progress Note Date: 01/04/19 CHIEF COMPLAINT: Abdominal pain HISTORY OF PRESENT ILLNESS: Patient examined at the bedside. Patient reports improvement in abdominal pain. Patient received enema and lactulose. She has had multiple bowel movements. She reports nausea, which she states is chronic. She is tolerating clear liquid diet. WBC 6.5 today. AST 91. ALT 115. PHYSICAL EXAM: VITAL SIGNS: Reviewed. GENERAL: Well-developed in no acute distress. HEENT: No sclera icterus. Extraocular movements grossly intact. Moist buccal mucosa. Head is atraumatic, normocephalic. ABDOMEN: Soft. Nontender. Positive bowel sounds. Hernia present. NEUROLOGIC: Alert and oriented. Cranial nerves II through XII grossly intact. ASSESSMENT: 1. Constipation 2. Possible mild colitis 3. Hiatal hernia 4. Leukocytosis 5. History of gastric banding PLAN: 1. Advance diet to full liquids 2. Discontinue lactulose. May continue at home once daily for constipation PRN. 3. Continue antibiotics 4. No surgical intervention recommended 5. Discharge per medicine 6. We will sign off. Please reconsult if needed. Nurse practitioner note has been reviewed by physician. Signing provider agrees with the documented findings, assessment, and plan of care. Objective - Vital Signs Vital signs: Vital Signs Temp 98 F 01/04/19 08:16 Pulse 67 01/04/19 08:16 Resp 20 01/04/19 08:16 BP 114/60 01/04/19 08:16 Pulse Ox 97 01/04/19 08:16 Intake & Output 01/03/19 01/04/19 01/04/19 18:59 06:59 18:59 Output Total 25 Balance -25 Output: Urine 25 Other: Voiding Method Toilet # Voids 1 1 # Bowel Movements 1 3 3 - Labs CBC & Chem 7: 01/04/19 08:12 01/04/19 08:12 Labs: Abnormal Lab Results - Last 24 Hours (Table) 01/04/19 01/04/19 Range/Units 08:12 08:12 RBC 3.34 L (3.80-5.40) m/uL Hgb 10.6 L D (11.4-16.0) gm/dL Hct 33.8 L (34.0-46.0) % MCV 101.2 H (80.0-100.0) fL Glucose 115 H (74-99) mg/dL AST 91 H (14-36) U/L ALT 115 H (9-52) U/L Total Protein 5.0 L (6.3-8.2) g/dL Albumin 2.8 L (3.5-5.0) g/dL Microbiology - Last 24 Hours (Table) 01/03/19 14:35 Urine Culture - Preliminary Urine,Voided
[2019-01-04] MEDS: HYDROcodone/APAP 7.5-325MG 1 EACH TAB PO PRN ×2 (12:05→23:58)
--- NOTE | 2019-01-04 12:53 | P.PN ---
Subjective Progress Note Date: 01/04/19 This is a 73-year-old female, patient of [facility]. She has a known past medical history of diabetes mellitus, hyperlipidemia, hypertension, hypothyroidism, irritable bowel syndrome, ventral hernia with previous surgery, and lap band surgery in 2000. Patient was hospitalized in October and at that time did have an EGD showing duodenitis gastritis and hiatal hernia. She was discharged with Protonix 40 mg daily and follow up with GI service. Patient has not been taking the Protonix. She presents to the hospital with complaints of lower abdominal pain with no bowel movement 4 weeks. She has been having cramping abdominal pain and describes him as "labor pains". Patient did try mag citrate with no results. Patient also has been having some dry heaves and nausea. No actual vomiting. She reports passing gas that started this morning. She's been requiring IV morphine for pain. Computed tomography scan of the abdomen and pelvis showing some constipation. There is some mild inflammatory changes in the left mid abdomen at the left paracolic gutter that is a change compared to last exam. This could relate to mild colitis. There is a hiatal hernia unchanged. Patient started on Rocephin and Flagyl in the ER. She did have slight elevation of liver enzymes AST 39 ALT 76 and alk phos 192. White count 14.2. Patient does report a previous cholecystectomy. On computed tomography scan abdomen there had been evidence of a mild prominent common bile duct. GI and surgical services have been consulted. Patient denies any chest pain or shortness of breath. Denies any burning with urination. Patient does report a previous colonoscopy about 5 years ago. She reports that it was normal. 01/04/2019 patient had 3 BMs. Nonbloody. Abdominal pain showing improvement. Denies any vomiting. Has been seen by GI, surgical and infectious disease services. Antibiotics adjusted per infectious disease to Azactam and Flagyl. Patient has been itching yesterday. Concerns of possible Rocephin ALLERGY. Benadryl started. Also morphine discontinued today. Concerns of the morphine may contribute to patient's itching as well. No significant rash. Patient denies any chest pain or shortness of breath. Denies any burning with urination. White count has normalized to 10.5 hemoglobin dropped from 14.8-10.6 AST 91 ALT 1:15. Alk phos 123. Patient having lower blood pressures and some hypotension during the night. Blood pressure this morning 114/60 parameters plac ed around patient's blood pressure pills. And blood pressure pills held this morning. Objective - Vital Signs Vital signs: Vital Signs Temp 98 F 01/04/19 08:16 Pulse 67 01/04/19 08:16 Resp 20 01/04/19 08:16 BP 114/60 01/04/19 08:16 Pulse Ox 97 01/04/19 08:16 Intake & Output 01/03/19 01/04/19 01/04/19 18:59 06:59 18:59 Output Total 25 Balance -25 Output: Urine 25 Other: Voiding Method Toilet # Voids 1 1 # Bowel Movements 1 3 3 - Exam Head normocephalic Neck supple Lungs clear to auscultation bilaterally no wheezing or crackles Heart regular rate and rhythm S1-S2, no rub or gallop Abdomen is soft lower abdominal tenderness mild nondistended positive bowel sounds no hepatosplenomegaly Extremities no edema Neuro alert and orientated to 3 - Labs CBC & Chem 7: 01/04/19 08:12 01/04/19 08:12 Labs: Abnormal Lab Results - Last 24 Hours (Table) 01/04/19 01/04/19 Range/Units 08:12 08:12 RBC 3.34 L (3.80-5.40) m/uL Hgb 10.6 L D (11.4-16.0) gm/dL Hct 33.8 L (34.0-46.0) % MCV 101.2 H (80.0-100.0) fL Glucose 115 H (74-99) mg/dL AST 91 H (14-36) U/L ALT 115 H (9-52) U/L Total Protein 5.0 L (6.3-8.2) g/dL Albumin 2.8 L (3.5-5.0) g/dL Microbiology - Last 24 Hours (Table) 01/03/19 14:35 Urine Culture - Preliminary Urine,Voided Assessment and Plan Assessment: 1. Abdominal pain: Likely related to constipation and mild colitis. Computed tomography scan revealing some constipation. There is some mild inflammatory changes in the left mid abdomen at the left pericolic gutter. This could relate to mild colitis. Antibiotics adjusted per infectious disease. Patient on Azactam and flagyl. Patient given lactulose per surgical service with positive bowel movements. Abdominal pain showing improvement. Patient's currently on a full liquid diet, to be advanced as tolerated. White count has improved 2. Mildly elevated LFTs. CAT scan did reveal mild prominent common bile duct. Repeat LFTs in a.m. We'll hold patient's Pravachol. LFTs are trending up. Continue to monitor. Hep-Lock fluids may be some underlying fluid congestion contributing to elevated LFTs. Monitor closely while she is on the [place]. 3. Recent hospitalization in October with duodenitis, gastritis and hiatal hernia noted on EGD. Patient had been discharged on Protonix. Patient has not been taking the Protonix 4. Hyperlipidemia: Hold statin due to elevated LFTs 5. History of ventral hernia with surgical repair in March 2018 6. History of laparoscopic banding surgery in 2000 7. Essential hypertension 10. Hypothyroidism 11. History of depression and anxiety 12. Dry skin and itching. Add Eucerin cream twice a day. Also add Benadryl 25 mg by mouth every 8 hours as needed. 13. Possible ALLERGIC reaction to Rocephin patient having severe itching. Continue with the Benadryl as needed. Antibiotics adjusted per infectious disease. Also, morphine could be tract into the itching. Morphine discontinued today. We'll monitor. 14. Hypotension possibly related to the morphine. Morphine discontinued. Parameters per placed around blood pressure medications to hold for systolic blood pressure less than 120. Repeat blood pressure this afternoon is 145/62 15. Anemia possibly diluted secondary to IV fluids. Also check iron studies. Continue to monitor hemoglobin GI prophylaxis IV Protonix and DVT prophylaxis subcu heparin I performed an examination of the patient and discussed their management with the physician [employer]. I have reviewed the Physician [employer] Director's notes and agree with the documented findings and plan of care
[2019-01-04] MEDS: metroNIDAZOLE 500 MG TAB PO SCH ×2 (17:06→23:55)
[2019-01-04 19:06] LABS: Iron Saturation 15.77 (12.00-45.00)
--- NOTE | 2019-01-04 23:16 | PN ---
PROGRESS NOTE DATE OF SERVICE: 01/04/2019 REASON FOR FOLLOWUP: Colitis/diverticulitis. INTERVAL HISTORY: The patient is currently afebrile. She has been breathing comfortably. Still complaining of some itching, though denies having any chest pain or cough. No abdominal pain and no diarrhea. PHYSICAL EXAMINATION: Blood pressure 132/60 with a pulse of 68, temperature 97.8. She is 95% on room air. General description is an elderly female lying in bed in no distress. RESPIRATORY SYSTEM: Unlabored breathing. Clear to auscultation anteriorly. HEART: S1, S2. Regular rate and rhythm. ABDOMEN: Soft. No tenderness. LAB: Hemoglobin 10.6, white count 6.5. BUN of 10, creatinine 0.89. Liver enzymes slightly elevated. DIAGNOSTIC IMPRESSION AND PLAN: Patient admitted to hospital with abdominal pain. Patient has been diagnosed with colitis with diverticulitis. The patient's white count did improve with Azactam and Flagyl. Because of her multiple antibiotic ALLERGY, no good oral option is available, and she will get a PICC line for outpatient IV Invanz 1 gram daily for about a week and close outpatient followup. Plan of care was discussed with the nurse practitioner for the admitting team. MMODL / IJN: [id number] / AMEENA
[2019-01-05] MEDS: LEVOTHYROXINE 25 MCG TAB PO SCH (06:50)
[2019-01-05] MEDS: diphenhydrAMINE 25 MG CAP PO PRN ×2 (07:17→14:50)
[2019-01-05] MEDS: FLUoxetine HCL 20 MG CAP PO SCH (07:59)
[2019-01-05] MEDS: CHOLECALCIFEROL 1,000 UNIT TAB PO SCH (08:00)
[2019-01-05] MEDS: ASCORBIC ACID 500 MG TAB PO SCH (08:00)
[2019-01-05] MEDS: ASPIRIN 325 MG TAB PO SCH (08:00)
[2019-01-05] MEDS: busPIRone HCl 10 MG TAB PO SCH (08:00)
[2019-01-05] MEDS: OLANZapine 10 MG TAB PO SCH (08:01)
[2019-01-05] MEDS: HEPARIN SODIUM,PORCINE 5,000 UNIT/ML 1 ML VIAL SQ SCH (08:01)
[2019-01-05] MEDS: LOSARTAN 50 MG TAB PO SCH (08:01)
[2019-01-05] MEDS: OXYBUTYNIN 10 MG TAB.ER.24 PO SCH (08:01)
[2019-01-05] MEDS: MINERAL OIL-WHITE PETROLATUM 120 GM JAR TOPICAL SCH (08:02)
[2019-01-05] MEDS: metroNIDAZOLE 500 MG TAB PO SCH (08:06)
[2019-01-05] MEDS: POTASSIUM CHLORIDE ER 10 MEQ TAB.ER.PRT PO SCH (08:06)
[2019-01-05] MEDS: cloNIDine HCL 0.1 MG TAB PO SCH (08:07)
[2019-01-05] MEDS: HYDROcodone/APAP 7.5-325MG 1 EACH TAB PO PRN (08:12)
[2019-01-05] MEDS ORDERED: PANTOPRAZOLE 40 MG TABLET PO SCH (09:00)
[2019-01-05] MEDS: AZTREONAM 2 GM in SODIUM CHLORIDE 0.9% 100 ML IVPB SCH (09:05)
[2019-01-05 09:17] VITALS: BP 122/67; PULSE 67; RESP 20; TEMP 97.4
[2019-01-05] MEDS ORDERED: ERTAPENEM 1 GM in SODIUM CHLORIDE 0.9% 50 ML IVPB STA (09:37)
[2019-01-05 10:39] LABS: Basophils % (A) 1 %; Eosinophils # (A) 0.5 k/uL (0-0.7); Eosinophils % (A) 8 %; HCT 31.7 % (34.0-46.0); Hypochromasia Moderate; Lymphocytes # (A) 1.6 k/uL (1.0-4.8); Lymphocytes % (A) 26 %; MCH 31.9 pg (25.0-35.0); MCHC 31.5 g/dL (31.0-37.0); MCV 101.3 fL (80.0-100.0); Macrocytosis Slight; Mean Platelet Volume 7.1; Monocytes # (A) 0.4 k/uL (0-1.0); Monocytes % (A) 7 %; Neutrophils # (A) 3.6 k/uL (1.3-7.7); Neutrophils % (A) 57 %; Platelet Count 207 k/uL (150-450); RBC 3.13 m/uL (3.80-5.40); RDW 14.7 % (11.5-15.5); WBC 6.2 k/uL (3.8-10.6)
[2019-01-05 10:56] LABS: Albumin 2.4 g/dL (3.5-5.0); Calcium 9.1 mg/dL (8.4-10.2); Potassium 4.2 mmol/L (3.5-5.1); Total Bilirubin 0.2 mg/dL (0.2-1.3); Total Protein 4.5 g/dL (6.3-8.2)
--- NOTE | 2019-01-05 14:12 | P.DS ---
Providers Date of admission: 01/04/19 11:42 Expected date of discharge: 01/05/19 Attending physician: Familia Wolf Consults: 01/03/19 15:16 Consult Physician Routine Consulting Provider: Deny Hicks Consult Reason/Comments: antibiotic therapy Do you want consulting provider notified?: Yes Primary care physician: Mehnaz Beck [facility] Course: Discharge diagnosis 1. Abdominal pain: Likely related to constipation and mild colitis. Computed tomography scan revealing some constipation. There is some mild inflammatory changes in the left mid abdomen at the left pericolic gutter. This could relate to mild colitis. Antibiotics adjusted per infectious disease. Patient on Azactam and flagyl. Patient given lactulose per surgical service with positive bowel movements. Abdominal pain showing improvement. Patient's currently on a full liquid diet, to be advanced as tolerated. White count has improved. Patient has been advanced to regular diet. Patient has midline in place. Patient will get outpatient Invanz per infectious disease for 1 week arranged per case management 2. Mildly elevated LFTs. CAT scan did reveal mild prominent common bile duct. Repeat LFTs in a.m. We'll hold patient's Pravachol. LFTs are trending up. Continue to monitor. Hep-Lock fluids may be some underlying fluid congestion contributing to elevated LFTs. Monitor closely while she is on the Nardin. LFTs are trending down. Will order outpatient CMP 3. Recent hospitalization in October with duodenitis, gastritis and hiatal hernia noted on EGD. Patient had been discharged on Protonix. Patient has not been taking the Protonix. Prescription will be given for Protonix daily 4. Hyperlipidemia: Hold statin due to elevated LFTs 5. History of ventral hernia with surgical repair in March 2018 6. History of laparoscopic banding surgery in 2000 7. Essential hypertension 10. Hypothyroidism 11. History of depression and anxiety 12. Dry skin and itching. Add Eucerin cream twice a day. Also add Benadryl 25 mg by mouth every 8 hours as needed. 13. Possible ALLERGIC reaction to Rocephin patient having severe itching. Continue with the Benadryl as needed. Antibiotics adjusted per infectious disease. Also, morphine could be tract into the itching. Morphine discontinued today. We'll monitor. 14. Hypotension possibly related to the morphine. Morphine discontinued. Parameters per placed around blood pressure medications to hold for systolic blood pressure less than 120. Repeat blood pressure this afternoon is 145/62 15. Anemia possibly diluted secondary to IV fluids. Also check iron studies. Continue to monitor hemoglobin. CBC will be ordered in 2 days Hospital course This is a 73-year-old female, patient of [facility]. She has a known past medical history of diabetes mellitus, hyperlipidemia, hypertension, hypothyroidism, irritable bowel syndrome, ventral hernia with previous surgery, and lap band surgery in 2000. Patient was hospitalized in October and at that time did have an EGD showing duodenitis gastritis and hiatal hernia. She was discharged with Protonix 40 mg daily and follow up with GI service. Patient has not been taking the Protonix. She presents to the hospital with complaints of lower abdominal pain with no bowel movement 4 weeks. She has been having cramping abdominal pain and describes him as "labor pains". Patient did try mag citrate with no results. Patient also has been having some dry heaves and nausea. No actual vomiting. She reports passing gas that started this morning. She's been requiring IV morphine for pain. Computed tomography scan of the abdomen and pelvis showing some constipation. There is some mild inflammatory changes in the left mid abdomen at the left paracolic gutter that is a change compared to last exam. This could relate to mild colitis. There is a hiatal hernia unchanged. Patient started on Rocephin and Flagyl in the ER. She did have slight elevation of liver enzymes AST 39 ALT 76 and alk phos 192. White count 14.2. Patient does report a previous cholecystectomy. On computed arnoldo ography scan abdomen there had been evidence of a mild prominent common bile duct. GI and surgical services have been consulted. Patient denies any chest pain or shortness of breath. Denies any burning with urination. Patient does report a previous colonoscopy about 5 years ago. She reports that it was normal. 01/04/2019 patient had 3 BMs. Nonbloody. Abdominal pain showing improvement. Denies any vomiting. Has been seen by GI, surgical and infectious disease services. Antibiotics adjusted per infectious disease to Azactam and Flagyl. Patient has been itching yesterday. Concerns of possible Rocephin ALLERGY. Benadryl started. Also morphine discontinued today. Concerns of the morphine may contribute to patient's itching as well. No significant rash. Patient denies any chest pain or shortness of breath. Denies any burning with urination. White count has normalized to 10.5 hemoglobin dropped from 14.8-10.6 AST 91 ALT 1:15. Alk phos 123. Patient having lower blood pressures and some hypotension during the night. Blood pressure this morning 114/60 parameters placed around patient's blood pressure pills. And blood pressure pills held this morning. Surgical service has cleared patient for discharge the recommending lactulose daily on discharge. GI services has cleared patient for discharge On 01/05/2019 patient is alert and oriented 3. Patient has had nonbloody BMs. Patient denies abdominal pain patient denies nausea or vomiting. Patient has been sick for discharge from GI surgical services. Is in place. Patient to receive [facility] antibiotic outpatient per infectious disease. Patient is still complain about generalized itchiness. No rash visible. Recommend outpatient Benadryl as needed. Patient denies any chest pain or shortness breath. Patient denies any burning with urination. LFTs are trending down. CBC and CMP will be ordered for 2 days I performed an examination of the patient and discussed their management with the Nurse Practitioner. I have reviewed the Nurse Practitioner's notes and agree with the documented findings and plan of care Patient Condition at Discharge: Stable Plan - Discharge Summary New Discharge Prescriptions: New Pantoprazole [Protonix] 40 mg PO DAILY 30 Days #30 tablet. Lactulose [Cephulac] 30 gm PO DAILY PRN #30 ml PRN Reason: Constipation diphenhydrAMINE [Benadryl] 25 mg PO TID PRN cap PRN Reason: Itching Continue Aspirin EC [Ecotrin] 325 mg PO DAILY OLANZapine [ZyPREXA] 10 mg PO DAILY Levothyroxine Sodium [Synthroid] 25 mcg PO DAILY HYDROcodone/APAP 7.5-325MG [Nardin 7.5-325] 1 tab PO BID PRN PRN Reason: Pain busPIRone HCl [Buspar] 10 mg PO BID Potassium Chloride [Klor-Con 10] 10 meq PO BID Cholecalciferol [Vitamin D3] 1,000 unit PO DAILY FLUoxetine HCL [PROzac] 60 mg PO DAILY Oxybutynin Chloride [Ditropan XL] 10 mg PO DAILY cloNIDine HCL [Catapres] 0.1 mg PO BID Losartan Potassium 50 mg PO DAILY Fish Oil/Dha/Epa [Fish Oil 1,200 mg Fish Oil] 1 cap PO QID Ascorbic Acid [Vitamin C] 1,000 mg PO DAILY Discontinued Pravastatin Sodium [Pravachol] 40 mg PO HS Loperamide HCl [Imodium A-D] 2 mg PO DAILY Discharge Medication List Aspirin EC [Ecotrin] 325 mg PO DAILY 07/28/16 [History] HYDROcodone/APAP 7.5-325MG [Nardin 7.5-325] 1 tab PO BID PRN 02/16/18 [History] Levothyroxine Sodium [Synthroid] 25 mcg PO DAILY 02/16/18 [History] OLANZapine [ZyPREXA] 10 mg PO DAILY 02/16/18 [History] busPIRone HCl [Buspar] 10 mg PO BID 02/16/18 [History] Potassium Chloride [Klor-Con 10] 10 meq PO BID 03/11/18 [History] Cholecalciferol [Vitamin D3] 1,000 unit PO DAILY 09/19/18 [History] FLUoxetine HCL [PROzac] 60 mg PO DAILY 10/31/18 [History] Oxybutynin Chloride [Ditropan XL] 10 mg PO DAILY 12/14/18 [History] Ascorbic Acid [Vitamin C] 1,000 mg PO DAILY 01/02/19 [History] Fish Oil/Dha/Epa [Fish Oil 1,200 mg Fish Oil] 1 cap PO QID 01/02/19 [History] Losartan Potassium 50 mg PO DAILY 01/02/19 [History] cloNIDine HCL [Catapres] 0.1 mg PO BID 01/02/19 [History] Lactulose [Cephulac] 30 gm PO DAILY PRN #30 ml 01/05/19 [Rx] Pantoprazole [Protonix] 40 mg PO DAILY 30 Days #30 tablet. 01/05/19 [Rx] diphenhydrAMINE [Benadryl] 25 mg PO TID PRN cap 01/05/19 [Rx] Follow up Appointment(s)/Referral(s): [facility] [NON-STAFF] - 01/06/19 9:30 am (Office is located in the [facility] Office Building and they can be reached there at [facility] te [address].) Mehnaz Beck DO [Primary Care Provider] - 1-2 days Deny Hicks MD [STAFF PHYSICIAN] - 1 Week Gerson Segovia MD [STAFF PHYSICIAN] - 1 Week Activity/Diet/Wound Care/Special Instructions: antibiotics arranged per case management outpatient, midline in place Discharge Disposition: HOME WITH HOME HEALTH SERVICES
--- NOTE | 2019-01-06 08:40 | PN ---
PROGRESS NOTE DATE OF SERVICE: 01/05/2019 REASON FOR FOLLOWUP: Colitis, possible diverticulitis. INTERVAL HISTORY: The patient is currently afebrile. Still complaining of some itching, though denies having any chest pain or shortness of breath or cough. Abdominal pain has resolved. No diarrhea. PHYSICAL EXAMINATION: Blood pressure is 120/67with a pulse 58, temperature 97.4, she is 99% room air the patient is an elderly female lying in bed, in no distress. Respiratory system: Unlabored breathing clear to auscultation anteriorly. Heart: S1, S2. Regular rate and rhythm. Abdomen: Soft no tenderness. LABS: Hemoglobin is 10 go to 6.2, BUN of 8, creatinine 0.79. DIAGNOSTIC IMPRESSION AND PLAN: Patient admitted to the hospital with abdominal pain. Did have elevated white count and constipation and with evidence of colitis, possibly diverticulitis or the patient has infectious colitis. The patient responded to Azactam and Flagyl with no oral option available as she has allergies to Rocephin and as well as CIPRO with itching. She will be switched to Invanz 1 g daily to continue in the outpatient setting and close outpatient followup, ERIN / STEVE: [id number] / AMEENA
== END 2019-01-05 15:30 | disposition home or self-care (01) ==
LOC: EC 16:51 → 4SSUR 19:41 → 6PED 01-03 09:53 → INTOOBSV 01-04 11:42 → OBSVTOIN 01-04 11:42 → UNDODISIN 01-05 15:30
PROVIDERS: ADMIT Internal Medicine; ATTEND Internal Medicine
DX: R10.30 Lower abdominal pain, unspecified (principal); K59.00 Constipation, unspecified; K52.9 Noninfective gastroenteritis and colitis, unspecified; D64.9 Anemia, unspecified; D72.829 Elevated white blood cell count, unspecified; R74.0 Nonspecific elevation of levels of transaminase and lactic acid dehydrogenase [LDH]; I10 Essential (primary) hypertension; E78.5 Hyperlipidemia, unspecified; E11.9 Type 2 diabetes mellitus without complications; L29.9 Pruritus, unspecified; K58.9 Irritable bowel syndrome, unspecified; I95.9 Hypotension, unspecified; F32.9 Major depressive disorder, single episode, unspecified; L85.3 Xerosis cutis; F41.9 Anxiety disorder, unspecified; K44.9 Diaphragmatic hernia without obstruction or gangrene; E66.9 Obesity, unspecified; Z68.25 Body mass index [BMI] 25.0-25.9, adult; K58.0 Irritable bowel syndrome with diarrhea; E03.9 Hypothyroidism, unspecified; Z79.82 Long term (current) use of aspirin; Z79.890 Hormone replacement therapy; Z79.899 Other long term (current) drug therapy; Z88.1 Allergy status to other antibiotic agents; Z98.84 Bariatric surgery status; Z87.19 Personal history of other diseases of the digestive system; Z87.891 Personal history of nicotine dependence; Z90.49 Acquired absence of other specified parts of digestive tract; Z98.51 Tubal ligation status; Z80.42 Family history of malignant neoplasm of prostate; Z80.8 Family history of malignant neoplasm of other organs or systems; Z81.8 Family history of other mental and behavioral disorders
CPT/HCPCS: 96361 ×4; 96366 ×3; 96367 ×2; 96372 ×3; 96375 ×2; 96376 ×3; 96365; 99285; 36415; 97161; 36410; 76937; 80053 ×3; 82728; 83540; 83550; 83605; 83690; 85025 ×3; 81001; 87086; 74018; 74177; G0378 ×5; C1751; J2270 ×3; J1644 ×3; J2405 ×2; J0696 ×2; J1335; C9113 ×2; Q9967; 96374

== ENCOUNTER → 2019-01-07 | Outpatient (CLI) | payer MEDICARE ==
[2019-01-07 11:02] LABS: Basophils # (A) 0.1 k/uL (0-0.2); Basophils % (A) 1 %; Eosinophils # (A) 0.6 k/uL (0-0.7); Eosinophils % (A) 8 %; HCT 35.3 % (34.0-46.0); HGB 10.8 gm/dL (11.4-16.0); Lymphocytes # (A) 2.2 k/uL (1.0-4.8); Lymphocytes % (A) 30 %; MCH 30.5 pg (25.0-35.0); MCHC 30.7 g/dL (31.0-37.0); MCV 99.5 fL (80.0-100.0); Macrocytosis Slight; Mean Platelet Volume 7.2; Monocytes # (A) 0.6 k/uL (0-1.0); Monocytes % (A) 8 %; Neutrophils # (A) 3.8 k/uL (1.3-7.7); Neutrophils % (A) 51 %; Platelet Count 264 k/uL (150-450); RBC 3.55 m/uL (3.80-5.40); RDW 15.3 % (11.5-15.5); WBC 7.5 k/uL (3.8-10.6)
[2019-01-07 16:19] LABS: Albumin 3.4 g/dL (3.80-4.90); Albumin/Globulin Ratio 2.27 (1.60-3.17); Anion Gap 5.8 mmol/L (4.00-12.00); Calcium 9.2 mg/dL (8.7-10.3); Carbon Dioxide 26.2 mmol/L (21.6-31.8); Globulin 1.5 g/dL (1.6-3.3); Total Bilirubin 0.3 mg/dL (0.3-1.2); Total Protein 4.9 g/dL (6.2-8.2)
== END ==
LOC: LABWHC1 09:25
PROVIDERS: ATTEND Nurse Practitioner
DX: D64.9 Anemia, unspecified (principal); R79.89 Other specified abnormal findings of blood chemistry
CPT/HCPCS: 36415; 80053; 85025

== ENCOUNTER 2019-01-17 17:21 | Inpatient (IN) | payer MEDICARE ==
[2019-01-17] MEDS ORDERED: MORPHINE SULFATE 4 MG/ML SYRINGE IVP STA (17:55)
[2019-01-17] MEDS ORDERED: SODIUM CHLORIDE 0.9% 1,000 ML IV ONE (17:55)
[2019-01-17] MEDS ORDERED: ONDANSETRON 4 MG/2 ML VIAL IVP STA (17:55)
[2019-01-17] MEDS ORDERED: PANTOPRAZOLE 40 MG/10 ML VIAL IVP STA (17:55)
--- NOTE | 2019-01-17 18:09 | ED ---
Abdominal Pain HPI - General Chief Complaint: Abdominal Pain Stated Complaint: abdominal pain, nausea, vomiting Time Seen by Provider: 01/17/19 17:33 Source: patient Mode of arrival: wheelchair Limitations: no limitations - History of Present Illness Initial Comments: 73-year-old female presenting with constant upper abdominal pain that is present since September, is accompanied by dry heaving, not alleviated by anything. Patient denies any diarrhea or constipation or bloody bowel movements. States her last bowel movement was today and was normal. She denies any urinary symptoms, fevers, chills, chest pain, shortness of breath. She states she pre sented to her primary care doctor's office today who instructed her to come to the emergency department because he was concerned that she could not be getting "enough blood flow to her intestines." The patient states she was admitted for an unknown reason last month where she underwent EGD but is unsure of the results. States she was placed on IV antibiotics through a PICC line, which was removed today but she is unsure where her infection was or what antibiotic she was on. She states she had a colonoscopy 5 years prior that was unremarkable. Sheet she has a history of a bariatric surgery done by Dr. Segovia, who she saw last week for 2 hernias. She states they were not concerned at that time that her symptoms could be secondary to these hernias, and she was instructed to schedule an outpatient appointment for repair. She states she also had her gallbladder removed. - Related Data Home Medications Medication Instructions Recorded Confirmed Aspirin EC [Ecotrin] 325 mg PO DAILY 07/28/16 01/17/19 HYDROcodone/APAP 7.5-325MG [Norton 1 tab PO QID 02/16/18 01/17/19 7.5-325] Levothyroxine Sodium [Synthroid] 25 mcg PO DAILY 02/16/18 01/17/19 OLANZapine [ZyPREXA] 10 mg PO DAILY 02/16/18 01/17/19 busPIRone HCl [Buspar] 10 mg PO BID 02/16/18 01/17/19 Potassium Chloride [Klor-Con 10] 10 meq PO BID 03/11/18 01/17/19 Cholecalciferol [Vitamin D3 (25 2,000 unit PO DAILY 09/19/18 01/17/19 Mcg = 1000 Iu)] FLUoxetine HCL [PROzac] 60 mg PO DAILY 10/31/18 01/17/19 Oxybutynin Chloride [Ditropan XL] 10 mg PO DAILY 12/14/18 01/17/19 Ascorbic Acid [Vitamin C] 1,000 mg PO DAILY 01/02/19 01/17/19 Fish Oil/Dha/Epa [Fish Oil 1,200 1 cap PO QID 01/02/19 01/17/19 mg Fish Oil] Losartan Potassium 50 mg PO DAILY 01/02/19 01/17/19 cloNIDine HCL [Catapres] 0.1 mg PO HS 01/02/19 01/17/19 Loperamide [Imodium] 2 mg PO DAILY 01/17/19 01/17/19 OLANZapine [ZyPREXA] 2.5 mg PO DAILY 01/17/19 01/17/19 Ondansetron HCl [Zofran] 4 mg PO TID PRN 01/17/19 01/17/19 Pravastatin Sodium [Pravachol] 40 mg PO DAILY 01/17/19 01/17/19 amLODIPine [Norvasc] 5 mg PO DAILY 01/17/19 01/17/19 Allergies Allergy/AdvReac Type Severity Reaction Status Date / Time ciprofloxacin [From Cipro] Allergy Severe Itching Verified 01/17/19 18:12 ceftriaxone Allergy Itching Verified 01/17/19 18:12 Review of Systems ROS Statement: Those systems with pertinent positive or pertinent negative responses have been documented in the HPI. Review of Systems Constitutional: Denies fever, chills Eyes: Denies change in vision, Denies pain Ears, nose, mouth, throat: Denies headaches, Denies sore throat Cardiovascular: Denies chest pain. Denies palpitations Respiratory: Denies shortness of breath, Denies cough Gastrointestinal: Positive abdominal pain. Positive nausea, vomiting. Negative diarrhea. Genitourinary: Denies hematuria, Denies infections Musculoskeletal: Denies pain, Denies swelling Integumentary: Denies rash Neurological: Denies headache, focal weakness, focal numbness Psychiatric: Denies anxiety, Denies depression Hematologic/Lymphatic: Denies easy bleeding or bruising ROS Other: All systems not noted in ROS Statement are negative. Past Medical History Past Medical History: Diabetes Mellitus, Hyperlipidemia, Hypertension, Thyroid Disorder Additional Past Medical History / Comment(s): Type 2 DM (resolved), Hypothyroidism, IBS History of Any Multi-Drug Resistant Organisms: None Reported Past Surgical History: Appendectomy, Bariatric Surgery, Cholecystectomy, Hernia Repair, Tonsillectomy, Tubal Ligation Additional Past Surgical History / Comment(s): lap band placed 2000(??) Past Anesthesia/Blood Transfusion Reactions: No Reported Reaction Additional Past Anesthesia/Blood Transfusion Reaction / Comment(s): No blood transfusion to date Past Psychological History: Anxiety, Depression Smoking Status: Former smoker Past Alcohol Use History: None Reported Past Drug Use History: None Reported - Past Family History Father Family Medical History: Cancer Additional Family Medical History / Comment(s): Prostate and bone cancer Mother Family Medical History: Dementia General Exam - General Exam Comments Initial Comments: General: Awake, alert, No acute Distress HENT: Normocephalic. Atraumatic Eyes: PERRL. EOMI. No scleral icterus. No injected conjunctiva Neck: Full ROM Chest/Lungs: Clear to auscultation bilaterally. No wheezing, rhonchi, or rales Cardiac: Regular rate, rhythm. No murmurs or rubs Abdomen/GI: Soft, TTP in epigastric, RUQ, and LUQ area. Nondistended. No rebound, guarding, or rigidity. Ventral hernia present which is soft. Large healed surgical scar across epigastric region. Musculoskeletal: Full ROM Skin: Warm, dry, intact Neurologic: A/Ox3, no weakness, no sensory deficit, no abnormal gait, no c oordination deficit Limitations: no limitations Course Vital Signs 01/17/19 01/17/19 01/17/19 17:27 19:50 21:00 Temperature 98.2 F 98.4 F Pulse Rate 68 64 67 Respiratory 20 18 16 Rate Blood Pressure 152/79 162/66 133/57 O2 Sat by Pulse 98 96 97 Oximetry Medical Decision Making - Medical Decision Making 73-year-old female presenting with abdominal pain since September. Initial exam the patient is awake, alert, no acute distress. VSS. Review patient's medical records show that the patient had an EGD in October which showed duodenitis, gastritis and a hiatal hernia. She had been noncompliant with the protonix she was discharged on, and was told to follow up with GI. Patient states she was unable to see GI until March 02. Patient was discharged from the hospital on January 05 after being treated for colitis. Patient was seen by infectious disease and [facility]. On the patient's last workup th ere was some dilation of her common bile duct as well as some mild elevation of her LFTs but these normalized and the patient does have a history of cholecystectomy. Per the notes the patient was having mild pruritus with multiple antibiotics. They recommended outpatient Benadryl as needed and ch anged her abx. The pruritus resolved. Laboratory workup revealed a mildly elevated AST of 48 but otherwise was negative. She had 6 WBCs in her UA with small leuk esterase and some bacteria. The patient is denying any urinary symptoms. At this time will hold antibiotics as she just finished a course of IV antibiotics. A culture was sent. Her CTA showed 50% luminal narrowing at the origin of the SMA due to plaque formation as well as 50% focal narrowing of the proximal left common iliac artery due to plaque. Otherwise the patient CTA was negative for acute process. She continued to have sharp and stabbing abdominal pain. I spoke with Dr. Munoz who is agreeble to observation for intractable abdominal pain with consultation to GI and surgery. Patient is agreeable to plan. - Lab Data Result diagrams: 01/17/19 18:37 01/17/19 18:37 Lab Results 01/17/19 01/17/19 01/17/19 Range/Units 18:37 18:37 18:37 WBC 8.9 (3.8-10.6) k/uL RBC 3.96 (3.80-5.40) m/uL Hgb 12.2 (11.4-16.0) gm/dL Hct 38.6 (34.0-46.0) % MCV 97.4 (80.0-100.0) fL MCH 30.8 (25.0-35.0) pg MCHC 31.6 (31.0-37.0) g/dL RDW 14.2 (11.5-15.5) % Plt Count 280 (150-450) k/uL Neutrophils % 62 % Lymphocytes % 28 % Monocytes % 6 % Eosinophils % 1 % Basophils % 1 % Neutrophils # 5.5 (1.3-7.7) k/uL Lymphocytes # 2.5 (1.0-4.8) k/uL Monocytes # 0.5 (0-1.0) k/uL Eosinophils # 0.1 (0-0.7) k/uL Basophils # 0.1 (0-0.2) k/uL Sodium 139 (137-145) mmol/L Potassium 4.2 (3.5-5.1) mmol/L Chloride 106 (98-107) mmol/L Carbon Dioxide 24 (22-30) mmol/L Anion Gap 9 mmol/L BUN 11 (7-17) mg/dL Creatinine 0.72 (0.52-1.04) mg/dL Est GFR (CKD-EPI)AfAm >90 (>60 ml/min/1.73 sqM) Est GFR (CKD-EPI)NonAf 83 (>60 ml/min/1.73 sqM) Glucose 112 H (74-99) mg/dL Calcium 10.2 (8.4-10.2) mg/dL Total Bilirubin 0.4 (0.2-1.3) mg/dL Conjugated Bilirubin 0.0 (0.0-0.3) mg/dL Unconjugated Bilirubin 0.3 (0.0-1.1) mg/dL Delta Bilirubin 0.1 (0.0-0.2) mg/dL AST 48 H (14-36) U/L ALT 34 (9-52) U/L Alkaline Phosphatase 99 (38-126) U/L Troponin I <0.012 (0.000-0.034) ng/mL Total Protein 6.5 (6.3-8.2) g/dL Albumin 3.8 (3.5-5.0) g/dL Lipase 92 (23-300) U/L Urine Color Urine Appearance (Clear) Urine pH (5.0-8.0) Ur Specific Wildrose (1.001-1.035) Urine Protein (Negative) Urine Glucose (UA) (Negative) Urine Ketones (Negative) Urine Blood (Negative) Urine Nitrite (Negative) Urine Bilirubin (Negative) Urine Urobilinogen (<2.0) mg/dL Ur Leukocyte Esterase (Negative) Urine RBC (0-5) /hpf Urine WBC (0-5) /hpf Ur Squamous Epith Cells (0-4) /hpf Urine Bacteria (None) /hpf Urine Mucus (None) /hpf 01/17/19 Range/Units 18:37 WBC (3.8-10.6) k/uL RBC (3.80-5.40) m/uL Hgb (11.4-16.0) gm/dL Hct (34.0-46.0) % MCV (80.0-100.0) fL MCH (25.0-35.0) pg MCHC (31.0-37.0) g/dL RDW (11.5-15.5) % Plt Count (150-450) k/uL Neutrophils % % Lymphocytes % % Monocytes % % Eosinophils % % Basophils % % Neutrophils # (1.3-7.7) k/uL Lymphocytes # (1.0-4.8) k/uL Monocytes # (0-1.0) k/uL Eosinophils # (0-0.7) k/uL Basophils # (0-0.2) k/uL Sodium (137-145) mmol/L Potassium (3.5-5.1) mmol/L Chloride (98-107) mmol/L Carbon Dioxide (22-30) mmol/L Anion Gap mmol/L BUN (7-17) mg/dL Creatinine (0.52-1.04) mg/dL Est GFR (CKD-EPI)AfAm (>60 ml/min/1.73 sqM) Est GFR (CKD-EPI)NonAf (>60 ml/min/1.73 sqM) Glucose (74-99) mg/dL Calcium (8.4-10.2) mg/dL Total Bilirubin (0.2-1.3) mg/dL Conjugated Bilirubin (0.0-0.3) mg/dL Unconjugated Bilirubin (0.0-1.1) mg/dL Delta Bilirubin (0.0-0.2) mg/dL AST (14-36) U/L ALT (9-52) U/L Alkaline Phosphatase (38-126) U/L Troponin I (0.000-0.034) ng/mL Total Protein (6.3-8.2) g/dL Albumin (3.5-5.0) g/dL Lipase (23-300) U/L Urine Color Yellow Urine Appearance Clear (Clear) Urine pH 7.0 (5.0-8.0) Ur Specific Wildrose 1.015 (1.001-1.035) Urine Protein Trace H (Negative) Urine Glucose (UA) Negative (Negative) Urine Ketones 1+ H (Negative) Urine Blood Negative (Negative) Urine Nitrite Negative (Negative) Urine Bilirubin Negative (Negative) Urine Urobilinogen 2.0 (<2.0) mg/dL Ur Leukocyte Esterase Small H (Negative) Urine RBC 2 (0-5) /hpf Urine WBC 6 H (0-5) /hpf Ur Squamous Epith Cells 4 (0-4) /hpf Urine Bacteria Rare H (None) /hpf Urine Mucus Rare H (None) /hpf Disposition Clinical Impression: Intractable abdominal pain Disposition: HOME SELF-CARE Is patient prescribed a controlled substance at d/c from ED?: No Decision to Admit Reason: Admit from EC Decision Date: 01/17/19 Decision Time: 20:29
[2019-01-17 18:54] LABS: Basophils # (A) 0.1 k/uL (0-0.2); Basophils % (A) 1 %; Eosinophils # (A) 0.1 k/uL (0-0.7); Eosinophils % (A) 1 %; HCT 38.6 % (34.0-46.0); HGB 12.2 gm/dL (11.4-16.0); Lymphocytes # (A) 2.5 k/uL (1.0-4.8); Lymphocytes % (A) 28 %; MCH 30.8 pg (25.0-35.0); MCHC 31.6 g/dL (31.0-37.0); MCV 97.4 fL (80.0-100.0); Mean Platelet Volume 7.3; Monocytes # (A) 0.5 k/uL (0-1.0); Monocytes % (A) 6 %; Neutrophils # (A) 5.5 k/uL (1.3-7.7); Neutrophils % (A) 62 %; Platelet Count 280 k/uL (150-450); RBC 3.96 m/uL (3.80-5.40); RDW 14.2 % (11.5-15.5); WBC 8.9 k/uL (3.8-10.6)
[2019-01-17 19:01] LABS: ALT 34 U/L (9-52); AST 48 U/L (14-36); Albumin 3.8 g/dL (3.5-5.0); Alkaline Phosphatase 99 U/L (38-126); Anion Gap 9 mmol/L; Bilirubin, Delta 0.1 mg/dL (0.0-0.2); Bilirubin,Unconjugated 0.3 mg/dL (0.0-1.1); Blood Urea Nitrogen 11 mg/dL (7-17); Calcium 10.2 mg/dL (8.4-10.2); Carbon Dioxide 24 mmol/L (22-30); Chloride 106 mmol/L (98-107); Glucose 112 mg/dL (74-99); Lipase 92 U/L (23-300); Potassium 4.2 mmol/L (3.5-5.1); Sodium 139 mmol/L (137-145); Total Bilirubin 0.4 mg/dL (0.2-1.3); Total Protein 6.5 g/dL (6.3-8.2)
[2019-01-17 19:04] LABS: Appearance,Urine Clear (Clear); Bacteria,Urine Rare /hpf; Bilirubin,Urine Negative (Negative); Blood,Urine Negative (Negative); Color,Urine Yellow; Glucose,Urine (UA) Negative (Negative); Ketones,Urine 1+ (Negative); Leukocyte Esterase,Urine Small (Negative); Mucus,Urine Rare /hpf; Nitrite,Urine Negative (Negative); Protein,Urine Trace (Negative); RBC,Urine 2 /hpf (0-5); Specific Gravity,Urine 1.015 (1.001-1.035); Squamous Epithelial Cell,Urine 4 /hpf (0-4)
--- NOTE | 2019-01-17 19:44 | CT ---
EXAMINATION TYPE: CT angio abdomen pelvis DATE OF EXAM: 01/17/2019 HISTORY: Generalized abdominal pain. Bariatric oral prep. CT DLP: 890.7mGycm Automated Exposure Control for Dose Reduction was Utilized. CONTRAST: CT scan of the abdomen and pelvis is performed without and with IV Contrast, patient injected with 10 0 mL of Isovue 370. Multiple axial sections were obtained from the diaphragm to the floor of the pelvis without and subse quently with intravenous contrast. There are 3-D post processed images. COMPARISON: None FINDINGS: There is gastric sleeve noted. The liver shows no focal defect. There are clips from cholecystectomy. Spleen appears normal. There is no pancreatic mass. There is no adrenal mass. Kidneys show no hydron ephrosis. There is 3.2 cm cortical cyst anterior right kidney. There is no retroperitoneal adenopathy . Bladder distends smoothly. There is no evidence of a pelvic mass. There are a few sigmoid diverticu la. There is no sign of diverticulitis. There is no inguinal hernia. There is a first-degree L3-4 spondylolisthesis without spondylolysis. There is no lumbar compression fracture. I see no bony destructive process. Bony pelvis is intact. Heart size is normal. There is no pericardial effusion. There is contrast opacification of the abdomi nal aorta which has normal size. There is no evidence of stenosis. There is some atherosclerotic calc ification in the abdominal aorta. There is no aneurysm. There is contrast opacification of the celiac artery and superior mesenteric artery. There is bilateral contrast opacification of the renal arteri es. There is bilateral arterial flow in the iliac and femoral arteries. I see no evidence of hemodyna cassie stenosis. There is probably 50% lumen narrowing at the origin of the superior mesenteric artery d ue to plaque formation. There is 50% focal narrowing of the proximal left common iliac artery due to plaque. There is bilateral arterial flow in the superficial femoral and profunda femoris arteries pro ximally. IMPRESSION: There is some atherosclerotic calcification in the abdominal aorta and its branches. No e vidence of hemodynamic stenosis. No evidence of arterial aneurysm or dissection.
[2019-01-17] MEDS ORDERED: HYDROcodone/APAP 7.5-325MG 1 EACH TAB PO ONE (20:22)
[2019-01-17] MEDS ORDERED: NALOXONE 0.4 MG/ML 1 ML VIAL IV PRN (20:32)
[2019-01-17] MEDS ORDERED: ONDANSETRON 4 MG/2 ML VIAL IVP PRN (20:32)
[2019-01-17] MEDS ORDERED: MORPHINE SULFATE 4 MG/ML SYRINGE IV PRN (20:32)
[2019-01-17] MEDS: SODIUM CHLORIDE 0.9% 1,000 ML IV SCH (21:25)
[2019-01-17] MEDS ORDERED: NON-FORMULARY DRUG (Fish Oil/Dha/Epa [Fish Oil 1,200 Mg Fish Oil] 1 CAP) PO SCH (22:00)
[2019-01-17] MEDS: POTASSIUM CHLORIDE ER 10 MEQ TAB.ER.PRT PO SCH (22:22)
[2019-01-17] MEDS: cloNIDine HCL 0.1 MG TAB PO SCH (22:22)
[2019-01-17] MEDS: busPIRone HCl 10 MG TAB PO SCH (22:22)
[2019-01-17] MEDS: KETOROLAC 30 MG/ML 1 ML VIAL IVP PRN (22:25)
[2019-01-18] MEDS: KETOROLAC 30 MG/ML 1 ML VIAL IVP PRN ×2 (04:29→19:44)
[2019-01-18] MEDS: LEVOTHYROXINE 25 MCG TAB PO SCH (05:13)
[2019-01-18 08:21] LABS: ALT 75 U/L (9-52); AST 115 U/L (14-36); Albumin 2.9 g/dL (3.5-5.0); Alkaline Phosphatase 108 U/L (38-126); Anion Gap 4 mmol/L; Blood Urea Nitrogen 10 mg/dL (7-17); Calcium 9.3 mg/dL (8.4-10.2); Carbon Dioxide 23 mmol/L (22-30); Chloride 111 mmol/L (98-107); Glucose 74 mg/dL (74-99); Potassium 4.2 mmol/L (3.5-5.1); Sodium 138 mmol/L (137-145); Total Bilirubin 0.4 mg/dL (0.2-1.3); Total Protein 5.2 g/dL (6.3-8.2)
[2019-01-18] MEDS: ASCORBIC ACID 500 MG TAB PO SCH (08:26)
[2019-01-18] MEDS: CHOLECALCIFEROL 1,000 UNIT TAB PO SCH (08:26)
[2019-01-18] MEDS: ASPIRIN 325 MG TAB PO SCH (08:26)
[2019-01-18] MEDS: LOSARTAN 50 MG TAB PO SCH (08:27)
[2019-01-18] MEDS: amLODIPine 5 MG TAB PO SCH (08:27)
[2019-01-18] MEDS: POTASSIUM CHLORIDE ER 10 MEQ TAB.ER.PRT PO SCH ×2 (08:27→21:20)
[2019-01-18] MEDS: busPIRone HCl 10 MG TAB PO SCH ×2 (08:27→21:20)
[2019-01-18] MEDS: FLUoxetine HCL 20 MG CAP PO SCH (08:27)
[2019-01-18] MEDS: HYDROcodone/APAP 5-325MG 1 EACH TAB PO PRN (08:32)
[2019-01-18] MEDS ORDERED: PRAVASTATIN SODIUM 40 MG TAB PO SCH (09:00)
[2019-01-18] MEDS: OLANZapine 10 MG TAB PO SCH (10:34)
[2019-01-18] MEDS: OXYBUTYNIN 10 MG TAB.ER.24 PO SCH (10:34)
[2019-01-18] MEDS: OLANZapine 2.5 MG TAB PO SCH (10:34)
[2019-01-18] MEDS: SODIUM CHLORIDE 0.9% 1,000 ML IV SCH (10:36)
--- NOTE | 2019-01-18 10:54 | P.HPIM ---
History of Present Illness H&P Date: 01/18/19 This is a 73-year-old female patient of Dr. Beck. Patient presented with complaints of intractable abdominal pain. Patient also reports that she gets dry heaves. Denies diarrhea. Patient denies any alcohol use. Patient denies fever or constipation. Patient was recently discharged on IV Invanz for mild colitis. Patient reports that she completed treatment last Thursday and had PICC line removed yesterday. Patient reports that her abdominal pain became increasingly worse over the weekend. Patient reports that she presented to GI office asking to be seen by GI services but they were unable and advised patient to go to ER. Patient has a past medical history of hyperlipidemia, ventral hernia with surgical repair in March 2018, laparoscopic banding surgery in 2000, essential hypertension, hypothyroidism, pressure, anxiety and anemia. CTA of abdomen and pelvis completed showing some atherosclerotic calcification in the abdominal aorta and its branches. No evidence of hemodynamic stenosis. No evidence for arterial aneurysm or dissection. Lipase 92. GI and surgical services consulted. He should seriously also showing mild amount of leukocyte Estrace. Patient denies any urinary symptoms. Urine culture has been ordered. At this time patient denies chest pain or shortness of breath. Patient complaining of abdominal pain with occasional nausea. Patient denies any urina ry burning or frequency. Review of Systems Please refer to HPI otherwise unremarkable Past Medical History Past Medical History: Diabetes Mellitus, Hyperlipidemia, Hypertension, Thyroid Disorder Additional Past Medical History / Comment(s): Type 2 DM (resolved), Hypothyroidism, IBS History of Any Multi-Drug Resistant Organisms: None Reported Past Surgical History: Appendectomy, Bariatric Surgery, Cholecystectomy, Hernia Repair, Tonsillectomy, Tubal Ligation Additional Past Surgical History / Comment(s): lap band placed 2000(??) Past Anesthesia/Blood Transfusion Reactions: No Reported Reaction Additional Past Anesthesia/Blood Transfusion Reaction / Comment(s): No blood transfusion to date Past Psychological History: Anxiety, Depression Smoking Status: Former smoker Past Alcohol Use History: None Reported Past Drug Use History: None Reported - Past Family History Father Family Medical History: Cancer Additional Family Medical History / Comment(s): Prostate and bone cancer Mother Family Medical History: Dementia Medications and Allergies Home Medications Medication Instructions Recorded Confirmed Type Aspirin EC [Ecotrin] 325 mg PO DAILY 07/28/16 01/17/19 History HYDROcodone/APAP 7.5-325MG [[place] 1 tab PO QID 02/16/18 01/17/19 History 7.5-325] Levothyroxine Sodium [Synthroid] 25 mcg PO DAILY 02/16/18 01/17/19 History OLANZapine [ZyPREXA] 10 mg PO DAILY 02/16/18 01/17/19 History busPIRone HCl [Buspar] 10 mg PO BID 02/16/18 01/17/19 History Potassium Chloride [Klor-Con 10] 10 meq PO BID 03/11/18 01/17/19 History Cholecalciferol [Vitamin D3 (25 2,000 unit PO DAILY 09/19/18 01/17/19 History Mcg = 1000 Iu)] FLUoxetine HCL [PROzac] 60 mg PO DAILY 10/31/18 01/17/19 History Oxybutynin Chloride [Ditropan XL] 10 mg PO DAILY 12/14/18 01/17/19 History Ascorbic Acid [Vitamin C] 1,000 mg PO DAILY 01/02/19 01/17/19 History Fish Oil/Dha/Epa [Fish Oil 1,200 1 cap PO QID 01/02/19 01/17/19 History mg Fish Oil] Losartan Potassium 50 mg PO DAILY 01/02/19 01/17/19 History cloNIDine HCL [Catapres] 0.1 mg PO HS 01/02/19 01/17/19 History Loperamide [Imodium] 2 mg PO DAILY 01/17/19 01/17/19 History OLANZapine [ZyPREXA] 2.5 mg PO DAILY 01/17/19 01/17/19 History Ondansetron HCl [Zofran] 4 mg PO TID PRN 01/17/19 01/17/19 History Pravastatin Sodium [Pravachol] 40 mg PO DAILY 01/17/19 01/17/19 History amLODIPine [Norvasc] 5 mg PO DAILY 01/17/19 01/17/19 History Allergies Allergy/AdvReac Type Severity Reaction Status Date / Time ciprofloxacin [From Cipro] Allergy Severe Itching Verified 01/17/19 18:12 ceftriaxone Allergy Itching Verified 01/17/19 18:12 Physical Exam Vitals: Vital Signs Temp Pulse Pulse Resp BP BP Pulse Ox 01/18/19 02:12 98.4 F 72 16 118/74 94 L 01/17/19 21:59 98.3 F 59 L 18 125/66 96 01/17/19 21:00 98.4 F 67 16 133/57 97 01/17/19 19:50 64 18 162/66 96 01/17/19 17:27 98.2 F 68 20 152/79 98 Intake and Output 01/17/19 01/18/19 01/18/19 22:59 06:59 14:59 Intake Total 1000 150 Balance 1000 150 Intake: Amount of Fluid Infused ( 1000 ml) Intake, IV Titration 150 Amount Sodium Chloride 0.9% 1, 150 000 ml @ 75 mls/hr IV . [id number] [facility] Rx#:[id number] Other: # Voids 2 Weight 54.431 kg Head normocephalic Neck supple Lungs clear to auscultation bilaterally no wheezing or crackles Heart regular rate and rhythm S1-S2, no rub or gallop Abdomen is soft nontender nondistended positive bowel sounds no hepatosplenomegaly Extremities no edema Neuro alert and orientated to 3 Results CBC & Chem 7: 01/17/19 18:37 01/18/19 07:18 Labs: Abnormal Lab Results - Last 24 Hours (Table) 01/17/19 01/17/19 01/18/19 Range/Units 18:37 18:37 07:18 Chloride 111 H (98-107) mmol/L Glucose 112 H (74-99) mg/dL AST 48 H 115 H (14-36) U/L ALT 75 H (9-52) U/L Total Protein 5.2 L (6.3-8.2) g/dL Albumin 2.9 L (3.5-5.0) g/dL Urine Protein Trace H (Negative) Urine Ketones 1+ H (Negative) Ur Leukocyte Esterase Small H (Negative) Urine WBC 6 H (0-5) /hpf Urine Bacteria Rare H (None) /hpf Urine Mucus Rare H (None) /hpf Microbiology - Last 24 Hours (Table) 01/17/19 18:37 Urine Culture - Preliminary Urine,Clean Catch Thrombosis Risk Factor Assmnt - Choose All That Apply Any of the Below Risk Factors Present?: No Other Risk Factors: Yes Each Risk Factor Represents 3 Points: Age 75 years or older Thrombosis Risk Factor Assessment Total Risk Factor Score: 3 Thrombosis Risk Factor Assessment Level: Moderate Risk Assessment and Plan Assessment: 1. Abdominal pain with nausea. CTA of abdomen and pelvis completed showing some atherosclerotic calcifications in the abdominal aorta and its branches no evidence of hemodynamic stenosis. No evidence of atrial aneurysm or dissection. Lipase 92. Surgical and GI services consulted. 2. Recent treatment for colitis. Patient was treated outpatient IV antibiotics Invanz. Patient reports she had completed treatment and PICC yesterday. 3. Recent hospitalization October with duodenitis, gastritis and hiatal hernia noted on EGD 4. Hyperlipidemia. Statin currently on hold due to elevated LFTs 5. History of ventral hernia with surgical repair in March 2018 6. History of a banding surgery 2000 7. Essential hypertension 8. Hypothyroidism 9. History of depression and anxiety 10. Elevated LFTs. Statin discontinued at this time. 11. Small amount of leukocyte Estrace noted on urinary analysis. White blood cell normal. Patient asymptomatic. Patient afebrile. Will order urine culture at this time GI prophylaxis Protonix. DVT prophylaxis SCDs until evaluated and cleared by surgical services Time with Patient: Greater than 30 (Greater than 60% of the total time spent in counseling and coordination of care. I performed an examination of the patient and discussed their management with the Nurse Practitioner. I have reviewed the Nurse Practitioner's notes and agree with the documented findings and plan of care)
--- NOTE | 2019-01-18 12:51 | P.CONS ---
History of Present Illness - Reason for Consult Consult date: 01/18/19 Abdominal pain Requesting physician: Familia Wolf - Chief Complaint Abdominal pain - History of Present Illness 73-year-old female with a history of open cholecystectomy 1990s unsure if she had stones or not, hyperlipidemia, hypertension, IBS-D maintained on Imodium, diabetes, prior lap band 2000, admitted with acute upper abdominal pain without diarrhea, bleeding or fever. These symptoms have been intermittent the last few months. Additionally she presented with mild elevation of transaminases. EGD October 2018 findings of a hiatal hernia gastritis and duodenitis. White count 8.9. Hemoglobin 12.2. LFTs total bilirubin 0.4. AST 40. ALT 34. AP 99. Lipase 92. CT angiogram abdomen and pelvis no evidence of bowel obstruction or diverticulitis. No mentioning of abnormal biliary tree. No evidence of hemodynamic stenosis. No aneurysm or dissection. Today AST is increased to 115. ALT 75. Total bilirubin and alkaline phosphatase within normal limits. No history of known liver disorders. No alcoholism. No changes in medications. When reviewing prior medical records patient transaminitis has been acute over the last 2-3 weeks. Review of Systems Constitutional: Denies fever, chills, sweats, weight gain, or loss. HEENT: Negative for migraines, blurred vision or loss, earaches, drainage, tinnitus, oral mucosal lesions, dysphagia, or odynophagia. CARDIAC: Negative for chest pain, arrhythmias, or palpitation. RESPIRATORY: Negative for shortness of breath, hemoptysis, cough, or sputum production. GI: See HPI for pertinent findings. : Negative for hematuria, urgency, frequency, polyuria, or dysuria. GYNc: Denies possibility of . Negative vaginal discharge. MUSCULOSKELETAL: Negative for muscle aches, swelling, arthritis, and arthralgias. NEUROLOGIC: Negative for stroke or TIA. ENDOCRINE: Negative for thyroid problems. SKIN: Negative for rash or itching. PSYCHIATRIC: Negative history for depression and anxiety Past Medical History Past Medical History: Diabetes Mellitus, Hyperlipidemia, Hypertension, Thyroid Disorder Additional Past Medical History / Comment(s): Type 2 DM (resolved), Hypothyroidism, IBS History of Any Multi-Drug Resistant Organisms: None Reported Past Surgical History: Appendectomy, Bariatric Surgery, Cholecystectomy, Hernia Repair, Tonsillectomy, Tubal Ligation Additional Past Surgical History / Comment(s): lap band placed 2000(??) Past Anesthesia/Blood Transfusion Reactions: No Reported Reaction Additional Past Anesthesia/Blood Transfusion Reaction / Comm: No blood transfusion to date Past Psychological History: Anxiety, Depression Smoking Status: Former smoker Past Alcohol Use History: None Reported Past Drug Use History: None Reported - Past Family History Father Family Medical History: Cancer Additional Family Medical History / Comment(s): Prostate and bone cancer Mother Family Medical History: Dementia Medications and Allergies Home Medications Medication Instructions Recorded Confirmed Type Aspirin EC [Ecotrin] 325 mg PO DAILY 07/28/16 01/17/19 History HYDROcodone/APAP 7.5-325MG [[place] 1 tab PO QID 02/16/18 01/17/19 History 7.5-325] Levothyroxine Sodium [Synthroid] 25 mcg PO DAILY 02/16/18 01/17/19 History OLANZapine [ZyPREXA] 10 mg PO DAILY 02/16/18 01/17/19 History busPIRone HCl [Buspar] 10 mg PO BID 02/16/18 01/17/19 History Potassium Chloride [Klor-Con 10] 10 meq PO BID 03/11/18 01/17/19 History Cholecalciferol [Vitamin D3 (25 2,000 unit PO DAILY 09/19/18 01/17/19 History Mcg = 1000 Iu)] FLUoxetine HCL [PROzac] 60 mg PO DAILY 10/31/18 01/17/19 History Oxybutynin Chloride [Ditropan XL] 10 mg PO DAILY 12/14/18 01/17/19 History Ascorbic Acid [Vitamin C] 1,000 mg PO DAILY 01/02/19 01/17/19 History Fish Oil/Dha/Epa [Fish Oil 1,200 1 cap PO QID 01/02/19 01/17/19 History mg Fish Oil] Losartan Potassium 50 mg PO DAILY 01/02/19 01/17/19 History cloNIDine HCL [Catapres] 0.1 mg PO HS 01/02/19 01/17/19 History Loperamide [Imodium] 2 mg PO DAILY 01/17/19 01/17/19 History OLANZapine [ZyPREXA] 2.5 mg PO DAILY 01/17/19 01/17/19 History Ondansetron HCl [Zofran] 4 mg PO TID PRN 01/17/19 01/17/19 History Pravastatin Sodium [Pravachol] 40 mg PO DAILY 01/17/19 01/17/19 History amLODIPine [Norvasc] 5 mg PO DAILY 01/17/19 01/17/19 History Allergies Allergy/AdvReac Type Severity Reaction Status Date / Time ciprofloxacin [From Cipro] Allergy Severe Itching Verified 01/17/19 18:12 ceftriaxone Allergy Itching Verified 01/17/19 18:12 Physical Exam Vitals: Vital Signs Temp Pulse Pulse Resp BP BP Pulse Ox 01/18/19 02:12 98.4 F 72 16 118/74 94 L 01/17/19 21:59 98.3 F 59 L 18 125/66 96 01/17/19 21:00 98.4 F 67 16 133/57 97 01/17/19 19:50 64 18 162/66 96 01/17/19 17:27 98.2 F 68 20 152/79 98 Intake and Output 01/17/19 01/18/19 01/18/19 22:59 06:59 14:59 Intake Total 1000 150 Balance 1000 150 Intake: Amount of Fluid Infused ( 1000 ml) Intake, IV Titration 150 Amount Sodium Chloride 0.9% 1, 150 000 ml @ 75 mls/hr IV . [id number] [facility] Rx#:[id number] Other: # Voids 2 Weight 54.431 kg General appearance: The patient is alert, oriented, in no acute distress. HET: Head is normocephalic and atraumatic. Pupils are equal and reactive. Oropharynx is clear without lesions. Neck: Supple without lymphadenopathy. Trachea midline. Heart: S1 S2. Regular rate and rhythm. Lungs: No crackles or wheezes are heard. Abdomen: Soft, mild midepigastric upper abdominal discomfort mild tenderness, nondistended with bowel sounds. No peritoneal signs. No palpable organomegaly or masses. Extremities: Normal skin color and turgor. No cyanosis, rash, ulceration, clubbing, or edema. Radial and pedal pulses are 2/4 bilaterally. Neurological: No focal deficits. Strength and sensation are grossly intact. Results CBC & Chem 7: 01/19/19 07:30 01/19/19 07:30 Labs: Abnormal Lab Results - Last 24 Hours (Table) 01/17/19 01/17/19 01/18/19 Range/Units 18:37 18:37 07:18 Chloride 111 H (98-107) mmol/L Glucose 112 H (74-99) mg/dL AST 48 H 115 H (14-36) U/L ALT 75 H (9-52) U/L Total Protein 5.2 L (6.3-8.2) g/dL Albumin 2.9 L (3.5-5.0) g/dL Urine Protein Trace H (Negative) Urine Ketones 1+ H (Negative) Ur Leukocyte Esterase Small H (Negative) Urine WBC 6 H (0-5) /hpf Urine Bacteria Rare H (None) /hpf Urine Mucus Rare H (None) /hpf Microbiology - Last 24 Hours (Table) 01/17/19 18:37 Urine Culture - Preliminary Urine,Clean Catch CT scan - abdomen: report reviewed (Dr. Zazueta) Assessment and Plan (1) Abdominal pain Narrative/Plan: 73-year-old female with a history of laparoscopic gastric banding, IBS-D, open cholecystectomy 1990s unsure if gallstones were present or not, presents with acute on chronic upper abdominal pain acute mild transaminitis without fever or bleeding with unremarkable EGD [address] abdomen and pelvis reported no evidence of bowel obstruction diverticulitis or abnormal biliary tree. Etiology of her pain is unclear at this time. Considerations to be kept in mind de akhil biliary stone. Current Visit: No Status: Acute Code(s): R10.9 - UNSPECIFIED ABDOMINAL PAIN SNOMED Code(s): 96179392 Plan: 1. General surgery has been consulted will defer to them if repeat EGD is necessary. Continue to monitor transaminases daily. If no improvement in transaminases consideration for MRCP to rule out biliary pathology as well as serologic workup for chronic liver disease. Will check hepatitis screen. We'll f mya closely with you. Thank you for this kind referral and the opportunity to participate in the care of your patient. This consultation was discussed with Dr. Zazueta. The impression and plan of care have been directed as dictated.
--- NOTE | 2019-01-18 13:31 | US ---
EXAMINATION TYPE: US liver DATE OF EXAM: 01/18/2019 COMPARISON: CT CLINICAL HISTORY: elevated liver enzymes. EXAM MEASUREMENTS: Liver Length: 10.9 cm Gallbladder Wall: Surgically absent cm CBD: 0.6 cm Right Kidney: 9.0 x 3.8 x 4.5 cm Pancreas: Pancreatic duct measures 0.2 cm, within normal limits. Liver: There is minimal intrahepatic biliary ductal dilatation. The previously seen mild hepatic sharri atosis is present on the recent CT is only very subtly seen as there is slight diminished visualizati on of the portal triads. Right hemidiaphragm is clearly visualized. No discrete hepatic mass is seen. Gallbladder: Surgically absent CBD: wnl Right Kidney: at least two cysts, largest lower pole measures 3.6 x 2.6 x 3.4 cm. IMPRESSION: 1. Findings suggesting very mild degree of hepatic steatosis. Minimal intrahepatic biliary ductal dil atation is likely on the basis of this patient's postcholecystectomy status. 2. Right renal cysts appear simple.
--- NOTE | 2019-01-18 13:45 | P.GSCN ---
History of Present Illness Consult date: 01/18/19 Reason for Consult: Abdominal pain Requesting physician: Judith Beal History of present illness: CHIEF COMPLAINT: Abdominal pain HISTORY OF PRESENT ILLNESS: 73-year-old female who presented to the emergency room with a chief compliant of abdominal pain. Patient has been experiencing upper quadrant abdominal pain for the past few months along with dry heaves. She states she was doing well but her symptoms began getting worse again over the weekend. Denies diarrhea or constipation. Denies fever or chills. Patient has history of EGD in October [address] Zazueta revealing moderate duodenitis, mild to moderate gastritis and small hiatal hernia. PAST MEDICAL HISTORY: See list. PAST SURGICAL HISTORY: See list. SOCIAL HISTORY: No illicit drug use. REVIEW OF SYSTEMS: CONSTITUTIONAL: Denies fever or chills. HEENT: Denies blurred vision, vision changes, or eye pain. Denies hemoptysis CARDIOVASCULAR: Denies chest pain or pressure. RESPIRATORY: No shortness of breath. GASTROINTESTINAL: Refer to HPI for pertinent findings HEMATOLOGIC: Denies bleeding disorders. GENITOURINARY: Denies any blood in urine. SKIN: Denies pruitis. Denies rash. PHYSICAL EXAM: VITAL SIGNS: Reviewed. GENERAL: Well-developed in no acute distress. HEENT: No sclera icterus. Extraocular movements grossly intact. Moist buccal mucosa. Head is atraumatic, normocephalic. ABDOMEN: Soft. Nondistended. Tenderness near epigastric region and bilateral upper quadrants. Hernia present. NEUROLOGIC: Alert and oriented. Cranial nerves II through XII grossly intact. LABORATORY DATA: Laboratory data on admission reveals white count 8.9. Hemoglobin 12.2. Bilirubin 0.4. AST 40. ALT 34. Alkaline phosphatase 99. Lipase 92. IMAGING: CTA abdomen: Some artheroscleotic calcification the abdominal aorta and its branches. No evidence of hemodynamic stenosis. No evidence of arterial aneurysm or dissection ASSESSMENT: 1. Acute on chronic upper abdominal pain with dry heaves PLAN: Ok for diet today. NPO after midnight EGD tomorrow with Dr. Segovia Nurse practitioner note has been reviewed by physician. Signing provider agrees with the documented findings, assessment, and plan of care. Past Medical History Past Medical History: Diabetes Mellitus, Hyperlipidemia, Hypertension, Thyroid Disorder Additional Past Medical History / Comment(s): Type 2 DM (resolved), Hypothyroidism, IBS History of Any Multi-Drug Resistant Organisms: None Reported Past Surgical History: Appendectomy, Bariatric Surgery, Cholecystectomy, Hernia Repair, Tonsillectomy, Tubal Ligation Additional Past Surgical History / Comment(s): lap band placed 2000(??) Past Anesthesia/Blood Transfusion Reactions: No Reported Reaction Additional Past Anesthesia/Blood Transfusion Reaction / Comm: No blood transfusion to date Past Psychological History: Anxiety, Depression Smoking Status: Former smoker Past Alcohol Use History: None Reported Past Drug Use History: None Reported - Past Family History Father Family Medical History: Cancer Additional Family Medical History / Comment(s): Prostate and bone cancer Mother Family Medical History: Dementia Medications and Allergies Home Medications Medication Instructions Recorded Confirmed Type Aspirin EC [Ecotrin] 325 mg PO DAILY 07/28/16 01/17/19 History HYDROcodone/APAP 7.5-325MG [[place] 1 tab PO QID 02/16/18 01/17/19 History 7.5-325] Levothyroxine Sodium [Synthroid] 25 mcg PO DAILY 02/16/18 01/17/19 History OLANZapine [ZyPREXA] 10 mg PO DAILY 02/16/18 01/17/19 History busPIRone HCl [Buspar] 10 mg PO BID 02/16/18 01/17/19 History Potassium Chloride [Klor-Con 10] 10 meq PO BID 03/11/18 01/17/19 History Cholecalciferol [Vitamin D3 (25 2,000 unit PO DAILY 09/19/18 01/17/19 History Mcg = 1000 Iu)] FLUoxetine HCL [PROzac] 60 mg PO DAILY 10/31/18 01/17/19 History Oxybutynin Chloride [Ditropan XL] 10 mg PO DAILY 12/14/18 01/17/19 History Ascorbic Acid [Vitamin C] 1,000 mg PO DAILY 01/02/19 01/17/19 History Fish Oil/Dha/Epa [Fish Oil 1,200 1 cap PO QID 01/02/19 01/17/19 History mg Fish Oil] Losartan Potassium 50 mg PO DAILY 01/02/19 01/17/19 History cloNIDine HCL [Catapres] 0.1 mg PO HS 01/02/19 01/17/19 History Loperamide [Imodium] 2 mg PO DAILY 01/17/19 01/17/19 History OLANZapine [ZyPREXA] 2.5 mg PO DAILY 01/17/19 01/17/19 History Ondansetron HCl [Zofran] 4 mg PO TID PRN 01/17/19 01/17/19 History Pravastatin Sodium [Pravachol] 40 mg PO DAILY 01/17/19 01/17/19 History amLODIPine [Norvasc] 5 mg PO DAILY 01/17/19 01/17/19 History Allergies Allergy/AdvReac Type Severity Reaction Status Date / Time ciprofloxacin [From Cipro] Allergy Severe Itching Verified 01/17/19 18:12 ceftriaxone Allergy Itching Verified 01/17/19 18:12 Surgical - Exam Vital Signs Temp Pulse Resp BP Pulse Ox 98.2 F 68 20 152/79 98 01/17/19 17:27 01/17/19 17:27 01/17/19 17:27 01/17/19 17:27 01/17/19 17:27 Results - Labs 01/17/19 18:37 01/18/19 07:18 Abnormal Lab Results - Last 24 Hours (Table) 01/17/19 01/17/19 01/18/19 Range/Units 18:37 18:37 07:18 Chloride 111 H (98-107) mmol/L Glucose 112 H (74-99) mg/dL AST 48 H 115 H (14-36) U/L ALT 75 H (9-52) U/L Total Protein 5.2 L (6.3-8.2) g/dL Albumin 2.9 L (3.5-5.0) g/dL Urine Protein Trace H (Negative) Urine Ketones 1+ H (Negative) Ur Leukocyte Esterase Small H (Negative) Urine WBC 6 H (0-5) /hpf Urine Bacteria Rare H (None) /hpf Urine Mucus Rare H (None) /hpf Microbiology - Last 24 Hours (Table) 01/17/19 18:37 Urine Culture - Preliminary Urine,Clean Catch Diabetes panel 01/17/19 01/18/19 Range/Units 18:37 07:18 Sodium 139 138 (137-145) mmol/L Potassium 4.2 4.2 (3.5-5.1) mmol/L Chloride 106 111 H (98-107) mmol/L Carbon Dioxide 24 23 (22-30) mmol/L BUN 11 10 (7-17) mg/dL Creatinine 0.72 0.73 (0.52-1.04) mg/dL Glucose 112 H 74 (74-99) mg/dL Calcium 10.2 9.3 (8.4-10.2) mg/dL AST 48 H 115 H (14-36) U/L ALT 34 75 H (9-52) U/L Alkaline Phosphatase 99 108 (38-126) U/L Total Protein 6.5 5.2 L (6.3-8.2) g/dL Albumin 3.8 2.9 L (3.5-5.0) g/dL Calcium panel 01/17/19 01/18/19 Range/Units 18:37 07:18 Calcium 10.2 9.3 (8.4-10.2) mg/dL Albumin 3.8 2.9 L (3.5-5.0) g/dL Pituitary panel 01/17/19 01/18/19 Range/Units 18:37 07:18 Sodium 139 138 (137-145) mmol/L Potassium 4.2 4.2 (3.5-5.1) mmol/L Chloride 106 111 H (98-107) mmol/L Carbon Dioxide 24 23 (22-30) mmol/L BUN 11 10 (7-17) mg/dL Creatinine 0.72 0.73 (0.52-1.04) mg/dL Glucose 112 H 74 (74-99) mg/dL Calcium 10.2 9.3 (8.4-10.2) mg/dL Adrenal panel 01/17/19 01/18/19 Range/Units 18:37 07:18 Sodium 139 138 (137-145) mmol/L Potassium 4.2 4.2 (3.5-5.1) mmol/L Chloride 106 111 H (98-107) mmol/L Carbon Dioxide 24 23 (22-30) mmol/L BUN 11 10 (7-17) mg/dL Creatinine 0.72 0.73 (0.52-1.04) mg/dL Glucose 112 H 74 (74-99) mg/dL Calcium 10.2 9.3 (8.4-10.2) mg/dL Total Bilirubin 0.4 0.4 (0.2-1.3) mg/dL AST 48 H 115 H (14-36) U/L ALT 34 75 H (9-52) U/L Alkaline Phosphatase 99 108 (38-126) U/L Total Protein 6.5 5.2 L (6.3-8.2) g/dL Albumin 3.8 2.9 L (3.5-5.0) g/dL
[2019-01-18 15:31] VITALS: BMI 25.5
[2019-01-18] MEDS: cloNIDine HCL 0.1 MG TAB PO SCH (21:20)
--- NOTE | 2019-01-19 04:09 | CONS ---
CONSULTATION DATE OF SERVICE: 01/18/2019. REASON FOR CONSULTATION: Abdominal pain/infection. HISTORY OF PRESENT ILLNESS: The patient is a 73-year-old female who was recently admitted to this facility. The patient has been diagnosed with colitis possible diverticulitis and that time, the patient did have elevated white count. The patient did have multiple antibiotic allergies and she was advised midline and IV Invanz which the patient has completed yesterday. The patient was seen in the office yesterday, did have overall improvement as far as abdominal pain was concerned. That was in the left lower quadrant area. The patient was complaining of some off and on chronic pain to the epigastric area. The patient subsequently presented to the [facility] ER in the evening with concern for excruciating pain in the epigastric area, which is a band across of the upper abdominal area, sharp almost 10/10 in severity. Did have some slight dry heaves, but no vomiting. Denies having any fever or any chills. No chest pain, shortness of breath or cough and no diarrhea. With these symptoms, the patient has been evaluated by the ER physician. On arrival to the ER, the patient did have abdominal pelvis CT angiogram completed which did show some arthrosis with calcification in the abdominal aorta and its branches. No evidence of hemodynamic stenosis. The patient did have some sigmoid diverticula, but no evidence of diverticulitis or colitis. The patient has been afebrile throughout her hospital stay. Her white count has been normal. Liver enzymes mildly elevated. I was asked to see the patient for need for any further antibiotic therapy at this point. REVIEW OF SYSTEMS: Positive points have been mentioned in HPI. Rest of systems have been negative. PAST MEDICAL HISTORY: Diabetes mellitus, hypertension, hyperlipidemia, hypothyroidism, and syndrome and diverticulitis. PAST SURGICAL HISTORY: Appendectomy and back surgery, cholecystectomy, hernia repair, tonsillectomy, tubal ligation. SOCIAL HISTORY: Remote history of smoking. No drinking, drug use. FAMILY HISTORY: Father history of prostate and bone cancer. Mother history of dementia. ALLERGIES: To CIPROFLOXACIN, CEFTRIAXONE., MEDICATION: The patient is currently on [place], Norvasc, vitamin C, aspirin, buspirone, Catapres, Prozac, Toradol, Synthroid, Cozaar, Narcan, Zyprexa, Zofran, Ditropan XL. PHYSICAL EXAMINATION: Blood pressure is 138/70 with a pulse of 51, temperature 98. She is 97% on room air. General description is an elderly female, lying in bed in no distress. No tachypnea or accessory muscle of respiration use. HEENT: Shows no pallor or scleral icterus. Oral mucosa is moist. NECK: Trachea central. No thyromegaly. LUNGS: Unlabored breathing. Clear to auscultation anteriorly. HEART S1, S2. Regular rate and rhythm. ABDOMEN: Soft, no drainage. No guarding or rigidity. EXTREMITIES: No edema of the feet. SKIN: Skin examination: No rash or mass palpable. NEUROLOGIC: The patient is awake, alert, and oriented times three. Mood and affect normal. LABS: Hemoglobin 12.2, white count 8.9 with a BUN of 10, creatinine 0.73. Lipase was 92 with liver enzymes normal. DIAGNOSTIC IMPRESSION AND PLAN: Patient admitted to the hospital with intractable abdominal pain in this patient who did have a chronic epigastric and upper quadrant pain area with a question of possible SMA syndrome. This patient who did have a recent history of diverticulitis/colitis that has been adequately treated as the current CT scan did not show any evidence of diverticulitis or colitis. The patient has no fever or elevated white count. PLAN: 1. We will obtain lactic acid. 2. No need for any systemic antibiotic therapy. 3. Possible workup for SMA syndrome. 4. If the patient spikes any fever, or change in the clinical condition, to reculture and start the patient on pro-antibiotic. Thank you for this consultation. MMODL / IJN: [id number] /
[2019-01-19 04:12] LABS: Hepatitis A Antibody IgM Non-Reactive (Non-Reactive); Hepatitis B Core IgM Non-Reactive (Non-Reactive)
[2019-01-19] MEDS: SODIUM CHLORIDE 0.9% 1,000 ML IV SCH ×2 (05:13→15:31)
[2019-01-19] MEDS: LEVOTHYROXINE 25 MCG TAB PO SCH (05:14)
[2019-01-19] MEDS: OLANZapine 10 MG TAB PO SCH (08:41)
[2019-01-19] MEDS: ASCORBIC ACID 500 MG TAB PO SCH (08:41)
[2019-01-19] MEDS: ASPIRIN 325 MG TAB PO SCH (08:41)
[2019-01-19] MEDS: OXYBUTYNIN 10 MG TAB.ER.24 PO SCH (08:41)
[2019-01-19] MEDS: CHOLECALCIFEROL 1,000 UNIT TAB PO SCH (08:41)
[2019-01-19] MEDS: FLUoxetine HCL 20 MG CAP PO SCH (08:41)
[2019-01-19] MEDS: amLODIPine 5 MG TAB PO SCH (08:41)
[2019-01-19] MEDS: PANTOPRAZOLE 40 MG TABLET PO SCH (08:41)
[2019-01-19] MEDS: busPIRone HCl 10 MG TAB PO SCH ×2 (08:42→22:18)
[2019-01-19] MEDS: LOSARTAN 50 MG TAB PO SCH (08:42)
[2019-01-19] MEDS: OLANZapine 2.5 MG TAB PO SCH (08:42)
[2019-01-19] MEDS: POTASSIUM CHLORIDE ER 10 MEQ TAB.ER.PRT PO SCH ×2 (08:42→22:18)
[2019-01-19 08:50] LABS: Basophils # (A) 0.1 k/uL (0-0.2); Basophils % (A) 1 %; Eosinophils # (A) 0.6 k/uL (0-0.7); Eosinophils % (A) 8 %; HCT 36.6 % (34.0-46.0); HGB 11.5 gm/dL (11.4-16.0); Lymphocytes # (A) 2.9 k/uL (1.0-4.8); Lymphocytes % (A) 39 %; MCH 30.7 pg (25.0-35.0); MCHC 31.3 g/dL (31.0-37.0); MCV 98.2 fL (80.0-100.0); Mean Platelet Volume 7.4; Monocytes # (A) 0.5 k/uL (0-1.0); Monocytes % (A) 7 %; Neutrophils # (A) 3.2 k/uL (1.3-7.7); Neutrophils % (A) 43 %; Platelet Count 232 k/uL (150-450); RBC 3.73 m/uL (3.80-5.40); RDW 14.5 % (11.5-15.5); WBC 7.5 k/uL (3.8-10.6)
[2019-01-19] MEDS ORDERED: LIDOCAINE 1% INJ 10MG/ML (20 ML MDV) ONE (09:05)
[2019-01-19] MEDS ORDERED: PROPOFOL 10 MG/ML 20 ML VIAL IV ONE (09:05)
[2019-01-19] MEDS ORDERED: IV FLUID CONTINUATION 200 ML IV ONE (09:05)
[2019-01-19 09:07] LABS: Albumin 3.1 g/dL (3.5-5.0); Calcium 9.5 mg/dL (8.4-10.2); Potassium 4.1 mmol/L (3.5-5.1); Total Bilirubin 0.3 mg/dL (0.2-1.3); Total Protein 5.4 g/dL (6.3-8.2)
--- NOTE | 2019-01-19 09:21 | P.OP ---
Date of Procedure: 01/19/19 Preoperative Diagnosis: Epigastric abdominal pain Postoperative Diagnosis: Mild antral gastritis No evidence of inflammatory changes around gastric band Esophagitis Procedure(s) Performed: EGD Anesthesia: MAC Surgeon: Gerson Segovia Pathology: other (Antrum, esophagus) Condition: stable Disposition: PACU Description of Procedure: The patient's placed on the endoscopy table in the lateral position. She received IV sedation. The gastroscope placed the oropharynx and passed in the esophagus and into the stomach. Scope was then placed through the pylorus. The first and second portion of the duodenum appeared normal. The scope was then brought back and the antrum and this was mildly inflamed. A biopsy was performed. The scope was then retroflexed the remainder of the stomach appeared normal. The LAP-BAND was without evidence of inflammation or erosion. The proximal gastric pouch appeared to be minimal inflamed. A biopsy the distal esophagus performed. This appeared to be mildly inflamed. The proximal esophagus appeared normal. Scope withdrawn for patient.
[2019-01-19] MEDS: KETOROLAC 30 MG/ML 1 ML VIAL IVP PRN (11:59)
[2019-01-19 12:09] LABS: Appearance,Urine Clear (Clear); Bilirubin,Urine Negative (Negative); Blood,Urine Negative (Negative); Color,Urine Colorless; Glucose,Urine (UA) Negative (Negative); Ketones,Urine Negative (Negative); Leukocyte Esterase,Urine Negative (Negative); Nitrite,Urine Negative (Negative); PH, Urine 6.5 (5.0-8.0); Protein,Urine Negative (Negative); Specific Gravity,Urine 1.003 (1.001-1.035); Urobilinogen,Urine <2.0 mg/dL (<2.0)
--- NOTE | 2019-01-19 13:34 | P.PN ---
Subjective Progress Note Date: 01/19/19 Principal diagnosis: abdominal pain transaminitis s/p EGD; no changes associated with lap band. Feels better. LFTs improved. AST 61. ALT 50. AP 107. Total bilirubin 0.3. Hepatitis screen nonreactive. Objective - Vital Signs Vital signs: Vital Signs Temp 98.2 F 01/19/19 07:00 Pulse 67 01/19/19 08:00 Resp 16 01/19/19 08:00 BP 117/64 01/19/19 07:00 Pulse Ox 96 01/19/19 07:00 Intake & Output 01/18/19 01/19/19 01/19/19 18:59 06:59 18:59 Intake Total 900 50 Balance 900 50 Weight 59.421 kg Intake: IV 50 Intake, IV Titration 900 Amount Sodium Chloride 0.9% 1, 900 000 ml @ 75 mls/hr IV . [id number] SHERINE Rx#:[id number] Other: # Voids 2 2 - Exam General appearance: The patient is alert, oriented, in no acute distress. HET: Head is normocephalic and atraumatic. Pupils are equal and reactive. Oropharynx is clear without lesions. Neck: Supple without lymphadenopathy. Trachea midline. Heart: S1 S2. Regular rate and rhythm. Lungs: No crackles or wheezes are heard. Abdomen: Soft, nontender, nondistended with bowel sounds. No peritoneal signs. No palpable organomegaly or masses. Extremities: Normal skin color and turgor. No cyanosis, rash, ulceration, clubbing, or edema. Radial and pedal pulses are 2/4 bilaterally. Neurological: No focal deficits. Strength and sensation are grossly intact. - Labs CBC & Chem 7: 01/19/19 07:30 01/19/19 07:30 Labs: Abnormal Lab Results - Last 24 Hours (Table) 01/18/19 01/19/19 01/19/19 Range/Units 19:30 07:30 07:30 RBC 3.73 L (3.80-5.40) m/uL Chloride 110 H (98-107) mmol/L Glucose 70 L (74-99) mg/dL Plasma Lactic Acid Mushtaq 0.6 L (0.7-2.0) mmol/L AST 61 H (14-36) U/L ALT 58 H (9-52) U/L Total Protein 5.4 L (6.3-8.2) g/dL Albumin 3.1 L (3.5-5.0) g/dL Microbiology - Last 24 Hours (Table) 01/17/19 18:37 Urine Culture - Preliminary Urine,Clean Catch Group D Enterococcus Assessment and Plan (1) Abdominal pain Narrative/Plan: 73-year-old female with a history of laparoscopic gastric banding, IBS-D, open cholecystectomy 1990s unsure if gallstones were present or not, presents with acute on chronic upper abdominal pain acute mild transaminitis without fever or bleeding with unremarkable EGD [address] abdomen and pelvis reported no evidence of bowel obstruction diverticulitis or abnormal biliary tree. Etiology of her pain is unclear at this time. Considerations to be kept in mind de akhil biliary stone with subsequent improvement in transaminases hepatitis screen nonreactive. Status post EGD with no evidence of inflammatory changes around endoscopic gastric band. Abdominal pain improved. Current Visit: No Status: Acute Code(s): R10.9 - UNSPECIFIED ABDOMINAL PAIN SNOMED Code(s): 50492139 Plan: 1. Discharge per medicine. LFTs improved therefore MRCP not planned. Recommend CMP in 1 week follow up with PCP with results. Continue symptomatic supportive measures, GI prophylaxis. Assessment and plan of care discussed with Dr. Zazueta
--- NOTE | 2019-01-19 14:02 | P.PN ---
Subjective Progress Note Date: 01/19/19 This is a 73-year-old female patient of Dr. Beck. Patient presented with complaints of intractable abdominal pain. Patient also reports that she gets dry heaves. Denies diarrhea. Patient denies any alcohol use. Patient denies fever or constipation. Patient was recently discharged on IV Invanz for mild colitis. Patient reports that she completed treatment last Thursday and had PICC line removed yesterday. Patient reports that her abdominal pain became increasingly worse over the weekend. Patient reports that she presented to GI office asking to be seen by GI services but they were unable and advised patient to go to ER. Patient has a past medical history of hyperlipidemia, ventral hernia with surgical repair in March 2018, laparoscopic banding surgery in 2000, essential hypertension, hypothyroidism, pressure, anxiety and anemia. CTA of abdomen and pelvis completed showing some atherosclerotic calcification in the abdominal aorta and its branches. No evidence of hemodynamic stenosis. No evidence for arterial aneurysm or dissection. Lipase 92. GI and surgical services consulted. He should seriously also showing mild amount of leukocyte Estrace. Patient denies any urinary symptoms. Urine culture has been ordered. At this time patient denies chest pain or shortness of breath. Patient complaining of abdominal pain with occasional nausea. Patient denies any urinary burning or frequency. On 01/19/2019 patient to undergo EGD today. Patient does feel improved. Patie nt denies chest pain or shortness of breath. Patient denies nausea vomiting or diarrhea. Patient denies any urinary burning or frequency. Repeat UA ordered per infectious disease. Liver enzymes are trending down Objective - Vital Signs Vital signs: Vital Signs Temp 98.2 F 01/19/19 07:00 Pulse 67 01/19/19 08:00 Resp 16 01/19/19 08:00 BP 117/64 01/19/19 07:00 Pulse Ox 96 01/19/19 07:00 Intake & Output 01/18/19 01/19/19 01/19/19 18:59 06:59 18:59 Intake Total 900 50 Balance 900 50 Weight 59.421 kg Intake: IV 50 Intake, IV Titration 900 Amount Sodium Chloride 0.9% 1, 900 000 ml @ 75 mls/hr IV . [id number] SHERINE Rx#:[id number] Other: # Voids 2 2 - Exam Head normocephalic Neck supple Lungs clear to auscultation bilaterally no wheezing or crackles Heart regular rate and rhythm S1-S2, no rub or gallop Abdomen is soft nontender nondistended positive bowel sounds no hepatosplenomegaly Extremities no edema Neuro alert and orientated to 3 - Labs CBC & Chem 7: 01/19/19 07:30 01/19/19 07:30 Labs: Abnormal Lab Results - Last 24 Hours (Table) 01/18/19 01/19/19 01/19/19 Range/Units 19:30 07:30 07:30 RBC 3.73 L (3.80-5.40) m/uL Chloride 110 H (98-107) mmol/L Glucose 70 L (74-99) mg/dL Plasma Lactic Acid Mushtaq 0.6 L (0.7-2.0) mmol/L AST 61 H (14-36) U/L ALT 58 H (9-52) U/L Total Protein 5.4 L (6.3-8.2) g/dL Albumin 3.1 L (3.5-5.0) g/dL Microbiology - Last 24 Hours (Table) 01/17/19 18:37 Urine Culture - Preliminary Urine,Clean Catch Group D Enterococcus Assessment and Plan Assessment: 1. Abdominal pain with nausea. CTA of abdomen and pelvis completed showing some atherosclerotic calcifications in the abdominal aorta and its branches no evidence of hemodynamic stenosis. No evidence of atrial aneurysm or dissection. Lipase 92. EGD completed showing mild antral gastritis. No evidence of inflammatory changes from gastric band esophagitis. 2. Recent treatment for colitis. Patient was treated outpatient IV antibiotics Invanz. Patient reports she had completed treatment and PICC yesterday. Infectious disease no need for systemic antibiotic therapy. 3. Recent hospitalization October with duodenitis, gastritis and hiatal hernia noted on EGD 4. Hyperlipidemia. Statin currently on hold due to elevated LFTs 5. History of ventral hernia with surgical repair in March 2018 6. History of a banding surgery 2000 7. Essential hypertension 8. Hypothyroidism 9. History of depression and anxiety 10. Elevated LFTs. Statin discontinued at this time. Her ultrasound completed showing findings suggesting very mild degree of hepatic steatosis. Minimal i ntrahepatic biliary duct dilation is likely on basis of this patient's postcholecystectomy status. Right renal cyst appears simple. Per GI services liver enzymes are trending down. LFTs improved therefore MRCP not planned per GI services recommended CMP in 1 week 11. Urinary tract infection. urine culture showing group B enterococcus. Infectious disease is following. Patient started on Unasyn GI prophylaxis Protonix. DVT prophylaxis Lovenox I performed an examination of the patient and discussed their management with the Nurse Practitioner. I have reviewed the Nurse Practitioner's notes and agree with the documented findings and plan of care
[2019-01-19] MEDS: AMPICILLIN-SULBACTAM 1.5 GM in SODIUM CHLORIDE 0.9% 50 ML IVPB SCH ×2 (15:52→19:16)
[2019-01-19] MEDS: cloNIDine HCL 0.1 MG TAB PO SCH (22:18)
[2019-01-19] MEDS: HYDROcodone/APAP 5-325MG 1 EACH TAB PO PRN (22:19)
--- NOTE | 2019-01-19 23:44 | PN ---
PROGRESS NOTE DATE OF SERVICE: 01/19/2019. REASON FOR FOLLOWUP: 1. Abdominal pain, possible . 2. Enterococcus urinary tract infection. INTERVAL HISTORY: The patient is currently afebrile. The patient is status post EGD this morning with no evidence of any ulceration. The patient still has pain in the upper abdominal area but slightly better. No nausea or vomiting. Denies any chest pain. No shortness of breath or cough. Did have slight frequency of urine. PHYSICAL EXAMINATION: Blood pressure 118/64 with a pulse of 64. Temperature 98.1. She is 96% on room air. General description is an elderly female, lying in bed in no distress. Respiratory system: Unlabored breathing. Clear to auscultation anteriorly. Heart S1, S2. Regular rate and rhythm. Abdomen soft, no tenderness. LABS: Urine showing Enterococcus species. DIAGNOSTIC IMPRESSION AND PLAN: 1. Patient admitted to the hospital with abdominal pain with concern for possible SMA syndrome for which the patient currently had workup with GI and services. No evidence of any colitis. 2. Patient with a positive culture for Enterococcal species and the sputum has slight urinary symptom. We will add Unasyn. Repeat urine culture has been ordered. Monitor clinical course closely. MMODL / IJN: [id number] /
[2019-01-20] MEDS: AMPICILLIN-SULBACTAM 1.5 GM in SODIUM CHLORIDE 0.9% 50 ML IVPB SCH ×2 (00:11→05:50)
[2019-01-20] MEDS: SODIUM CHLORIDE 0.9% 1,000 ML IV SCH (02:07)
[2019-01-20] MEDS: LEVOTHYROXINE 25 MCG TAB PO SCH (05:41)
[2019-01-20 07:27] LABS: Basophils # (A) 0.1 k/uL (0-0.2); Basophils % (A) 1 %; Eosinophils # (A) 0.6 k/uL (0-0.7); Eosinophils % (A) 8 %; HCT 35.4 % (34.0-46.0); HGB 11.2 gm/dL (11.4-16.0); Lymphocytes # (A) 2.5 k/uL (1.0-4.8); Lymphocytes % (A) 38 %; MCHC 31.6 g/dL (31.0-37.0); MCV 98.1 fL (80.0-100.0); Monocytes # (A) 0.4 k/uL (0-1.0); Monocytes % (A) 5 %; Neutrophils % (A) 45 %; Platelet Count 252 k/uL (150-450); RBC 3.61 m/uL (3.80-5.40); RDW 14.3 % (11.5-15.5); WBC 6.7 k/uL (3.8-10.6)
[2019-01-20 07:42] LABS: ALT 41 U/L (9-52); AST 39 U/L (14-36); Alkaline Phosphatase 92 U/L (38-126); Anion Gap 4 mmol/L; Blood Urea Nitrogen 14 mg/dL (7-17); Calcium 9.3 mg/dL (8.4-10.2); Carbon Dioxide 27 mmol/L (22-30); Chloride 110 mmol/L (98-107); Glucose 76 mg/dL (74-99); Potassium 3.9 mmol/L (3.5-5.1); Sodium 141 mmol/L (137-145); Total Bilirubin 0.3 mg/dL (0.2-1.3); Total Protein 5.4 g/dL (6.3-8.2)
[2019-01-20] MEDS ORDERED: ENOXAPARIN 40 MG/0.4 ML SYRINGE SQ SCH (09:00)
[2019-01-20] MEDS: PANTOPRAZOLE 40 MG TABLET PO SCH (11:31)
[2019-01-20] MEDS: ASCORBIC ACID 500 MG TAB PO SCH (11:32)
[2019-01-20] MEDS: amLODIPine 5 MG TAB PO SCH (11:32)
[2019-01-20] MEDS: busPIRone HCl 10 MG TAB PO SCH (11:33)
[2019-01-20] MEDS: CHOLECALCIFEROL 1,000 UNIT TAB PO SCH (11:33)
[2019-01-20] MEDS: ASPIRIN 325 MG TAB PO SCH (11:33)
[2019-01-20] MEDS: OXYBUTYNIN 10 MG TAB.ER.24 PO SCH (11:34)
[2019-01-20] MEDS: LOSARTAN 50 MG TAB PO SCH (11:35)
[2019-01-20] MEDS: POTASSIUM CHLORIDE ER 10 MEQ TAB.ER.PRT PO SCH (11:35)
[2019-01-20] MEDS: FLUoxetine HCL 20 MG CAP PO SCH (11:35)
[2019-01-20] MEDS: OLANZapine 2.5 MG TAB PO SCH (11:36)
[2019-01-20] MEDS: OLANZapine 10 MG TAB PO SCH (11:37)
[2019-01-20] MEDS: HYDROcodone/APAP 5-325MG 1 EACH TAB PO PRN (11:49)
[2019-01-20 11:52] VITALS: BP 160/72; PULSE 82; RESP 16; TEMP 98.1
--- NOTE | 2019-01-20 12:04 | P.PN ---
Subjective Progress Note Date: 01/20/19 CHIEF COMPLAINT: Abdominal pain HISTORY OF PRESENT ILLNESS: Patient examined at the bedside. Patient is status post EGD revealing mild antral gastritis, no evidence of inflammatory changes around gastric band, esophagitis. PHYSICAL EXAM: VITAL SIGNS: Reviewed. GENERAL: Well-developed in no acute distress. HEENT: No sclera icterus. Extraocular movements grossly intact. Moist buccal mucosa. Head is atraumatic, normocephalic. ABDOMEN: Soft. Nondistended. Mild tenderness near epigastrium. Hernia present. NEUROLOGIC: Alert and oriented. Cranial nerves II through XII grossly intact. ASSESSMENT: 1. Acute on chronic upper abdominal pain with dry heaves PLAN: No surgical intervention recommended. Patient is stable for discharge from a surgical standpoint. Will defer to medicine Follow up with Dr. Segovia in 1 week Nurse practitioner note has been reviewed by physician. Signing provider agrees with the documented findings, assessment, and plan of care. Objective - Vital Signs Vital signs: Vital Signs Temp 98.1 F 01/20/19 09:40 Pulse 82 01/20/19 09:40 Resp 16 01/20/19 09:40 BP 160/72 01/20/19 09:40 Pulse Ox 97 01/20/19 09:40 Intake & Output 01/19/19 01/20/19 01/20/19 18:59 06:59 18:59 Intake Total 1090 275 Balance 1090 275 Intake: IV 50 Intake, IV Titration 800 275 Amount Ampicillin-Sulbactam 1.5 50 gm In Sodium Chloride 0.9 % 50 ml @ 100 mls/hr IVPB Q6HR SHERINE Rx#:[id number] Sodium Chloride 0.9% 1, 800 225 000 ml @ 75 mls/hr IV . [id number] SHERINE Rx#:[id number] Oral 240 Other: # Voids 3 1 - Labs CBC & Chem 7: 01/20/19 07:10 01/20/19 07:10 Labs: Abnormal Lab Results - Last 24 Hours (Table) 01/20/19 01/20/19 Range/Units 07:10 07:10 RBC 3.61 L (3.80-5.40) m/uL Hgb 11.2 L (11.4-16.0) gm/dL Chloride 110 H (98-107) mmol/L AST 39 H (14-36) U/L Total Protein 5.4 L (6.3-8.2) g/dL Albumin 3.0 L (3.5-5.0) g/dL Microbiology - Last 24 Hours (Table) 01/17/19 18:37 Urine Culture - Final Urine,Clean Catch Enterococcus faecium VRE
--- NOTE | 2019-01-20 12:42 | P.DS ---
Providers Date of admission: 01/20/19 09:35 Expected date of discharge: 01/20/19 Attending physician: Familia Wolf Consults: 01/17/19 20:33 Consult Physician Routine Consulting Provider: Gerson Segovia Consult Reason/Comments: intractable abdominal pain Do you want consulting provider notified?: Yes 01/18/19 12:44 Consult Physician Routine Consulting Provider: Deny Hicks Consult Reason/Comments: Recent completion of IV antibiotics Invanz Do you want consulting provider notified?: Yes Primary care physician: Mehnaz Beck Hospital Course: Discharge diagnosis 1. Abdominal pain with nausea. CTA of abdomen and pelvis completed showing some atherosclerotic calcifications in the abdominal aorta and its branches no evidence of hemodynamic stenosis. No evidence of atrial aneurysm or dissection. Lipase 92. EGD completed showing mild antral gastritis. No evidence of inflammatory changes from gastric band esophagitis. Patient has been cleared for discharge from surgical services. Patient will be DC'd on Protonix 2. Recent treatment for colitis. Patient was treated outpatient IV antibiotics Invanz. Patient reports she had completed treatment and PICC yesterday. Infectious disease no need for systemic antibiotic therapy. 3. Recent hospitalization October with duodenitis, gastritis and hiatal hernia noted on EGD 4. Hyperlipidemia. Statin currently on hold due to elevated LFTs 5. History of ventral hernia with surgical repair in March 2018 6. History of a banding surgery 2000 7. Essential hypertension 8. Hypothyroidism 9. History of depression and anxiety 10. Elevated LFTs. Statin discontinued at this time. Her ultrasound completed showing findings suggesting very mild degree of hepatic steatosis. Minimal intrahepatic biliary duct dilation is likely on basis of this patient's postcholecystectomy status. Right renal cyst appears simple. Per GI services liver enzymes are trending down. LFTs improved therefore MRCP not planned per GI services recommended CMP in 1 week 11. Urinary tract infection. urine culture showing group B enterococcus. Infectious disease is following. Patient started on Unasyn. Discussed case with Dr. Hicks per infectious disease. Urine culture contaminated due to repeat UA that is negative per infectious disease. No need for antibiotics upon discharge Hospital course This is a 73-year-old female patient of Dr. Beck. Patient presented with complaints of intractable abdominal pain. Patient also reports that she gets dry heaves. Denies diarrhea. Patient denies any alcohol use. Patient denies fever or constipation. Patient was recently discharged on IV Invanz for mild colitis. Patient reports that she completed treatment last Thursday and had PICC line removed yesterday. Patient reports that her abdominal pain became increasingly worse over the weekend. Patient reports that she presented to GI office asking to be seen by GI services but they were unable and advised patient to go to ER. Patient has a past medical history of hyperlipidemia, ventral hernia with surgical repair in March 2018, laparoscopic banding surgery in 2000, essential hypertension, hypothyroidism, pressure, anxiety and anemia. CTA of abdomen and pelvis completed showing some atherosclerotic calcification in the abdominal aorta and its branches. No evidence of hemodynamic stenosis. No evidence for arterial aneurysm or dissection. Lipase 92. GI and surgical services consulted. He should seriously also showing mild amount of leukocyte Estrace. Patient denies any urinary symptoms. Urine culture has been ordered. At this time patient denies chest pain or shortness of breath. Patient complaining of abdominal pain with occasional nausea. Patient denies any urinary burning or frequency. On 01/19/2019 patient to undergo EGD today. Patient does feel improved. Patient denies chest pain or shortness of breath. Patient denies nausea vomiting or diarrhea. Patient denies any urinary burning or frequency. Repeat UA ordered per infectious disease. Liver enzymes are trending down On 01/20/2019 patient is alert and oriented 3. Patient underwent EGD. Patient has been cleared for discharge from surgical and GI services. Discussed case with Dr. Hicks per infectious disease. Urine culture contaminated due to repeat UA that is negative per infectious disease. No need for antibiotics upon discharge. At this time patient has been tolerating regular diet. Patient reports no problems with diarrhea or constipation. Patient denies nausea or vomiting. Patient denies any urinary burning or frequency. Statin will be held upon discharge due to elevated liver enzymes. Repeat CMP will be ordered for 3 days. I performed an examination of the patient and discussed their management with the Nurse Practitioner. I have reviewed the Nurse Practitioner's notes and agree with the documented findings and plan of care Patient Condition at Discharge: Stable Plan - Discharge Summary Discharge Rx Participant: No New Discharge Prescriptions: Continue Aspirin EC [Ecotrin] 325 mg PO DAILY OLANZapine [ZyPREXA] 10 mg PO DAILY Levothyroxine Sodium [Synthroid] 25 mcg PO DAILY HYDROcodone/APAP 7.5-325MG [[place] 7.5-325] 1 tab PO QID busPIRone HCl [Buspar] 10 mg PO BID Potassium Chloride [Klor-Con 10] 10 meq PO BID Cholecalciferol [Vitamin D3 (25 Mcg = 1000 Iu)] 2,000 unit PO DAILY FLUoxetine HCL [PROzac] 60 mg PO DAILY Oxybutynin Chloride [Ditropan XL] 10 mg PO DAILY cloNIDine HCL [Catapres] 0.1 mg PO HS Losartan Potassium 50 mg PO DAILY Fish Oil/Dha/Epa [Fish Oil 1,200 mg Fish Oil] 1 cap PO QID Ascorbic Acid [Vitamin C] 1,000 mg PO DAILY Loperamide [Imodium] 2 mg PO DAILY OLANZapine [ZyPREXA] 2.5 mg PO DAILY amLODIPine [Norvasc] 5 mg PO DAILY Ondansetron HCl [Zofran] 4 mg PO TID PRN PRN Reason: Nausea And Vomiting Discontinued Pravastatin Sodium [Pravachol] 40 mg PO DAILY Discharge Medication List Aspirin EC [Ecotrin] 325 mg PO DAILY 07/28/16 [History] HYDROcodone/APAP 7.5-325MG [[place] 7.5-325] 1 tab PO QID 02/16/18 [History] Levothyroxine Sodium [Synthroid] 25 mcg PO DAILY 02/16/18 [History] OLANZapine [ZyPREXA] 10 mg PO DAILY 02/16/18 [History] busPIRone HCl [Buspar] 10 mg PO BID 02/16/18 [History] Potassium Chloride [Klor-Con 10] 10 meq PO BID 03/11/18 [History] Cholecalciferol [Vitamin D3 (25 Mcg = 1000 Iu)] 2,000 unit PO DAILY 09/19/18 [History] FLUoxetine HCL [PROzac] 60 mg PO DAILY 10/31/18 [History] Oxybutynin Chloride [Ditropan XL] 10 mg PO DAILY 12/14/18 [History] Ascorbic Acid [Vitamin C] 1,000 mg PO DAILY 01/02/19 [History] Fish Oil/Dha/Epa [Fish Oil 1,200 mg Fish Oil] 1 cap PO QID 01/02/19 [History] Losartan Potassium 50 mg PO DAILY 01/02/19 [History] cloNIDine HCL [Catapres] 0.1 mg PO HS 01/02/19 [History] Loperamide [Imodium] 2 mg PO DAILY 01/17/19 [History] OLANZapine [ZyPREXA] 2.5 mg PO DAILY 01/17/19 [History] Ondansetron HCl [Zofran] 4 mg PO TID PRN 01/17/19 [History] amLODIPine [Norvasc] 5 mg PO DAILY 01/17/19 [History] Follow up Appointment(s)/Referral(s): Mehnaz Beck DO [Primary Care Provider] - 1-2 days Discharge Disposition: HOME SELF-CARE
--- NOTE | 2019-01-20 14:04 | PN ---
PROGRESS NOTE DATE OF SERVICE: 01/20/2019 REASON FOR FOLLOWUP: Positive urine culture with VRE. INTERVAL HISTORY: The patient is currently afebrile. Patient overall is feeling better. Breathing comfortably. Patient's abdominal pain has improved. No nausea, no vomiting. No diarrhea. Denies having any burning or frequency of urine. PHYSICAL EXAMINATION: Blood pressure 160/72 with a pulse of 82, temperature 98.1, she is 97% on room air. General description is an elderly female, lying in bed in no distress. RESPIRATORY SYSTEM: Unlabored breathing, clear to auscultation anteriorly. HEART: S1, S2. Regular rate and rhythm. ABDOMEN: Soft, no tenderness. LABS: Hemoglobin is 11.1, white count 6.7 with a BUN of 14, creatinine 0.74. UA that was done yesterday is negative. Hepatitis panel was negative as well. Urine culture that was done on 01/17 is VRE. DIAGNOSTIC IMPRESSION AND PLAN: Patient positive culture with VRE more likely contamination as the patient has currently no symptoms. She is not febrile. White count normal. She did have a followup UA on 01/19 that was essentially normal. Hence, no need for antibiotic therapy. This was discussed with the admitting team. MMODL / IJN: [id number] /
== END 2019-01-20 14:32 | disposition home or self-care (01) | DRG 394 ==
LOC: EC 17:21 → 4SSUR 20:33 → OBSVTOIN 01-20 09:35
PROVIDERS: ADMIT Internal Medicine; ATTEND Internal Medicine
PROC: 0DB38ZX Excision of Lower Esophagus, Via Natural or Artificial Opening Endoscopic, Diagnostic (ICD-10-PCS; 2019-01-19)
PROC: 0DB78ZX Excision of Stomach, Pylorus, Via Natural or Artificial Opening Endoscopic, Diagnostic (ICD-10-PCS; principal; 2019-01-19 15:35)
DX: K55.1 Chronic vascular disorders of intestine (principal); N39.0 Urinary tract infection, site not specified; N28.1 Cyst of kidney, acquired; E11.9 Type 2 diabetes mellitus without complications; E03.9 Hypothyroidism, unspecified; E78.5 Hyperlipidemia, unspecified; B95.2 Enterococcus as the cause of diseases classified elsewhere; I10 Essential (primary) hypertension; T47.1X6A Underdosing of other antacids and anti-gastric-secretion drugs, initial encounter; K20.9 Esophagitis, unspecified; K29.50 Unspecified chronic gastritis without bleeding; K57.30 Diverticulosis of large intestine without perforation or abscess without bleeding; K44.9 Diaphragmatic hernia without obstruction or gangrene; I70.0 Atherosclerosis of aorta; M19.90 Unspecified osteoarthritis, unspecified site; G89.29 Other chronic pain; K58.0 Irritable bowel syndrome with diarrhea; K43.9 Ventral hernia without obstruction or gangrene; F32.9 Major depressive disorder, single episode, unspecified; R74.8 Abnormal levels of other serum enzymes; F41.9 Anxiety disorder, unspecified; Z79.82 Long term (current) use of aspirin; Z79.890 Hormone replacement therapy; Z79.899 Other long term (current) drug therapy; Z88.1 Allergy status to other antibiotic agents; Z98.84 Bariatric surgery status; Z90.49 Acquired absence of other specified parts of digestive tract; Z98.51 Tubal ligation status; Z98.890 Other specified postprocedural states; Z87.891 Personal history of nicotine dependence; Z80.42 Family history of malignant neoplasm of prostate; Z80.8 Family history of malignant neoplasm of other organs or systems; Z81.8 Family history of other mental and behavioral disorders
CPT/HCPCS: 36415; 43239; 74174; 76705; 80048; 80053; 80074; 80076; 81001; 81003; 83605; 83690; 84484; 85025; 87077; 87086; 87186; 88305; 93005; 96361; 96374; 96375; 99285

== ENCOUNTER 2019-01-21 17:49 | Emergency (ER) | payer MEDICARE ==
[2019-01-21 18:02] VITALS: BP 133/75
[2019-01-21] MEDS ORDERED: FAMOTIDINE 20 MG/2 ML VIAL IV STA (18:20)
[2019-01-21] MEDS ORDERED: LIDOCAINE VISCOUS 2% 15 ML CUP MUCOUS MEM ONE (18:20)
[2019-01-21] MEDS ORDERED: MAG HYDROX/AL HYDROX/SIMETH 30 ML CUP PO PRN (18:20)
[2019-01-21] MEDS ORDERED: SUCRALFATE 1 GM TAB PO STA (18:20)
--- NOTE | 2019-01-21 18:25 | ED ---
SOB HPI - General Chief Complaint: Shortness of Breath Stated Complaint: Fever, ANDREW Time Seen by Provider: 01/21/19 18:09 Source: patient Mode of arrival: ambulatory Limitations: no limitations - History of Present Illness Initial Comments: Patient is a 73-year-old female presents with a chief complaint of shortness of breath and chest pain. She was recently discharged from the hospital where she was evaluated for nausea and vomiting and abdominal pain. Ultimately the patient had a course of IV Zosyn by PICC line for mild colitis. PICC line is since been removed. Patient states that she characterizes as a sharp pain in her neck and chest, worse with deep breathing. She cannot identify any other aggravating or alleviating factors. Timing is been constant for her. - Related Data Home Medications Medication Instructions Recorded Confirmed Aspirin EC [Ecotrin] 325 mg PO DAILY 07/28/16 01/21/19 HYDROcodone/APAP 7.5-325MG [[place] 1 tab PO QID 02/16/18 01/21/19 7.5-325] Levothyroxine Sodium [Synthroid] 25 mcg PO DAILY 02/16/18 01/21/19 OLANZapine [ZyPREXA] 10 mg PO DAILY 02/16/18 01/21/19 busPIRone HCl [Buspar] 10 mg PO BID 02/16/18 01/21/19 Potassium Chloride [Klor-Con 10] 10 meq PO BID 03/11/18 01/21/19 Cholecalciferol [Vitamin D3 (25 2,000 unit PO DAILY 09/19/18 01/21/19 Mcg = 1000 Iu)] FLUoxetine HCL [PROzac] 60 mg PO DAILY 10/31/18 01/21/19 Oxybutynin Chloride [Ditropan XL] 10 mg PO DAILY 12/14/18 01/21/19 Ascorbic Acid [Vitamin C] 1,000 mg PO DAILY 01/02/19 01/21/19 Fish Oil/Dha/Epa [Fish Oil 1,200 1 cap PO QID 01/02/19 01/21/19 mg Fish Oil] Losartan Potassium 50 mg PO DAILY 01/02/19 01/21/19 cloNIDine HCL [Catapres] 0.1 mg PO HS 01/02/19 01/21/19 Loperamide [Imodium] 2 mg PO DAILY 01/17/19 01/21/19 OLANZapine [ZyPREXA] 2.5 mg PO DAILY 01/17/19 01/21/19 Ondansetron HCl [Zofran] 4 mg PO TID PRN 01/17/19 01/21/19 amLODIPine [Norvasc] 5 mg PO DAILY 01/17/19 01/21/19 Previous Rx's Medication Instructions Recorded Pantoprazole [Protonix] 40 mg PO AC-[id number] 30 Days #30 01/20/19 tablet. Ranitidine HCl [Zantac] 150 mg PO BID #30 tab 01/21/19 Allergies Allergy/AdvReac Type Severity Reaction Status Date / Time ciprofloxacin [From Cipro] Allergy Severe Itching Verified 01/21/19 18:36 ceftriaxone Allergy Itching Verified 01/21/19 18:36 Review of Systems ROS Statement: Those systems with pertinent positive or pertinent negative responses have been documented in the HPI. ROS Other: All systems not noted in ROS Statement are negative. Respiratory: Reports: dyspnea Cardiovascular: Reports: chest pain Past Medical History Past Medical History: Diabetes Mellitus, Hyperlipidemia, Hypertension, Thyroid D isorder Additional Past Medical History / Comment(s): Type 2 DM (resolved), Hypothyroidism, IBS, chronic abd pain, vertigo History of Any Multi-Drug Resistant Organisms: VRE Date of last positivie culture/infection: 01/17/19 MDRO Source:: urine Past Surgical History: Appendectomy, Bariatric Surgery, Cholecystectomy, Hernia Repair, Tonsillectomy, Tubal Ligation Additional Past Surgical History / Comment(s): lap band placed 2000(??) Past Anesthesia/Blood Transfusion Reactions: No Reported Reaction Additional Past Anesthesia/Blood Transfusion Reaction / Comment(s): No blood transfusion to date Past Psychological History: Anxiety, Depression Smoking Status: Former smoker Past Alcohol Use History: None Reported Past Drug Use History: None Reported - Past Family History Father Family Medical History: Cancer Additional Family Medical History / Comment(s): Prostate and bone cancer Mother Family Medical History: Dementia General Exam Limitations: no limitations General appearance: alert, in no apparent distress Head exam: Present: atraumatic, normocephalic Eye exam: Present: normal appearance ENT exam: Present: normal exam Neck exam: Present: normal inspection. Absent: tenderness, lymphadenopathy Respiratory exam: Present: normal lung sounds bilaterally. Absent: respiratory distress, wheezes Cardiovascular Exam: Present: regular rate, normal rhythm GI/Abdominal exam: Present: soft. Absent: distended, tenderness Rectal exam: Present: deferred Extremities exam: Present: normal inspection Back exam: Present: normal inspection Neurological exam: Present: alert, oriented X3, CN II-XII intact Psychiatric exam: Present: normal affect, normal mood Skin exam: Present: warm, dry, intact Course Vital Signs 01/21/19 01/21/19 17:58 20:02 Temperature 99.0 F Pulse Rate 74 Respiratory 20 22 Rate Blood Pressure 133/75 O2 Sat by Pulse 97 Oximetry Medical Decision Making - Medical Decision Making Patient presents with a chief complaint of chest pain. On initial evaluation, vitals are stable, patient is a no acute distress. She was recently discharged from the hospital and had a PICC line which essentially been removed. Patient to be evaluated with basic labs including EKG, cardiac enzymes, and d-dimer. She was given a GI cocktail for symptomatically relief. 9:33 PM EKG performed at 1923 shows normal sinus rhythm with a rate of 66 bpm, segs are within normal limits, no acute ischemic changes present. Laboratory evaluation of this patient is unremarkable including a negative troponin. D-dimer is elevated 2.8. Patient was sent for a computed tomography scan to rule out pulmonary embolism. CT does not show any evidence of pulmonary embolism, no o ther acute processes identified. 9:41 PM on re-evaluation, patient is resting comfortably and in no acute distress. I reviewed the results with the patient. she is stable for discharge. Patient in structed to follow up with PCP in 1-2 days, return to the ED if sx worsen or change. patient instructed to take her pain medication as prescribed, she was given a prescription for zantac. - Lab Data Result diagrams: 01/21/19 19:30 01/21/19 19:30 Lab Results 01/21/19 01/21/19 01/21/19 Range/Units 19:30 19:30 19:30 WBC 8.4 (3.8-10.6) k/uL RBC 3.68 L (3.80-5.40) m/uL Hgb 11.5 (11.4-16.0) gm/dL Hct 35.1 (34.0-46.0) % MCV 95.2 (80.0-100.0) fL MCH 31.2 (25.0-35.0) pg MCHC 32.8 (31.0-37.0) g/dL RDW 14.6 (11.5-15.5) % Plt Count 225 (150-450) k/uL Neutrophils % 63 % Lymphocytes % 27 % Monocytes % 6 % Eosinophils % 2 % Basophils % 1 % Neutrophils # 5.3 (1.3-7.7) k/uL Lymphocytes # 2.2 (1.0-4.8) k/uL Monocytes # 0.5 (0-1.0) k/uL Eosinophils # 0.2 (0-0.7) k/uL Basophils # 0.1 (0-0.2) k/uL D-Dimer 2.88 H (<0.60) mg/L FEU Sodium 139 (137-145) mmol/L Potassium 3.6 (3.5-5.1) mmol/L Chloride 107 (98-107) mmol/L Carbon Dioxide 25 (22-30) mmol/L Anion Gap 7 mmol/L BUN 14 (7-17) mg/dL Creatinine 0.87 (0.52-1.04) mg/dL Est GFR (CKD-EPI)AfAm 76 (>60 ml/min/1.73 sqM) Est GFR (CKD-EPI)NonAf 66 (>60 ml/min/1.73 sqM) Glucose 98 (74-99) mg/dL Calcium 9.8 (8.4-10.2) mg/dL Troponin I (0.000-0.034) ng/mL NT-Pro-B Natriuret Pep pg/mL 01/21/19 01/21/19 Range/Units 19:30 19:30 WBC (3.8-10.6) k/uL RBC (3.80-5.40) m/uL Hgb (11.4-16.0) gm/dL Hct (34.0-46.0) % MCV (80.0-100.0) fL MCH (25.0-35.0) pg MCHC (31.0-37.0) g/dL RDW (11.5-15.5) % Plt Count (150-450) k/uL Neutrophils % % Lymphocytes % % Monocytes % % Eosinophils % % Basophils % % Neutrophils # (1.3-7.7) k/uL Lymphocytes # (1.0-4.8) k/uL Monocytes # (0-1.0) k/uL Eosinophils # (0-0.7) k/uL Basophils # (0-0.2) k/uL D-Dimer (<0.60) mg/L FEU Sodium (137-145) mmol/L Potassium (3.5-5.1) mmol/L Chloride (98-107) mmol/L Carbon Dioxide (22-30) mmol/L Anion Gap mmol/L BUN (7-17) mg/dL Creatinine (0.52-1.04) mg/dL Est GFR (CKD-EPI)AfAm (>60 ml/min/1.73 sqM) Est GFR (CKD-EPI)NonAf (>60 ml/min/1.73 sqM) Glucose (74-99) mg/dL Calcium (8.4-10.2) mg/dL Troponin I <0.012 (0.000-0.034) ng/mL NT-Pro-B Natriuret Pep 727 pg/mL Disposition Clinical Impression: Chest pain, Hiatal hernia, GERD (gastroesophageal reflux disease) Disposition: HOME SELF-CARE Condition: Good Instructions (If sedation given, give patient instructions): Hiatal Hernia (ED) Is patient prescribed a controlled substance at d/c from ED?: No Referrals: Mehnaz Beck DO [Primary Care Provider] - 1-2 days
[2019-01-21 19:48] LABS: Basophils # (A) 0.1 k/uL (0-0.2); Basophils % (A) 1 %; Eosinophils # (A) 0.2 k/uL (0-0.7); Eosinophils % (A) 2 %; HCT 35.1 % (34.0-46.0); HGB 11.5 gm/dL (11.4-16.0); Lymphocytes # (A) 2.2 k/uL (1.0-4.8); Lymphocytes % (A) 27 %; MCH 31.2 pg (25.0-35.0); MCHC 32.8 g/dL (31.0-37.0); MCV 95.2 fL (80.0-100.0); Mean Platelet Volume 7.3; Monocytes # (A) 0.5 k/uL (0-1.0); Monocytes % (A) 6 %; Neutrophils # (A) 5.3 k/uL (1.3-7.7); Neutrophils % (A) 63 %; Platelet Count 225 k/uL (150-450); RBC 3.68 m/uL (3.80-5.40); RDW 14.6 % (11.5-15.5); WBC 8.4 k/uL (3.8-10.6)
[2019-01-21 19:57] LABS: Calcium 9.8 mg/dL (8.4-10.2); Potassium 3.6 mmol/L (3.5-5.1)
--- NOTE | 2019-01-21 20:06 | XR ---
EXAMINATION TYPE: XR chest 2V DATE OF EXAM: 01/21/2019 COMPARISON: 09/25/2018 HISTORY: Fever TECHNIQUE: Frontal and lateral views of the chest are obtained. FINDINGS: There is no heart failure nor confluent pneumonic infiltrate. Costophrenic angles are agusto r. There is lower cervical spine fusion surgery. Heart size is normal. Diaphragm is normal. IMPRESSION: No active cardiopulmonary disease. No change compared to last exam.
--- NOTE | 2019-01-21 21:15 | CT ---
EXAMINATION TYPE: CT chest angio for PE DATE OF EXAM: 01/21/2019 COMPARISON: None HISTORY: elevated d-dimer, fever, SOB. CT DLP: 271.9 mGycm Automated exposure control for dose reduction was used. CONTRAST: CT Chest for pulmonary embolism performed with with IV Contrast, patient injected with 80 mL of Isovu e 370. FINDINGS: There is coarse linear density in the lower lung chen consistent with scarring and atelectasis. Hea rt appears enlarged. There is no pleural effusion. There is gastric sling noted. There is hiatal andrea ia. There is no pericardial effusion. There is no evidence of a pulmonary mass. There is no mediastin al adenopathy. There are no hilar masses. There is normal contrast opacification the pulmonary arteries. I see no filling defect. Thoracic aorta is intact without evidence of aneurysm or dissection. IMPRESSION: Scarring and subsegmental atelectasis at the lung bases. No evidence of pulmonary embolism.
[2019-01-21 21:59] VITALS: PULSE 73; RESP 18; TEMP 98.8
== END 2019-01-21 21:55 | disposition home or self-care (01) ==
LOC: EC 17:49
DX: K21.9 Gastro-esophageal reflux disease without esophagitis (principal); K44.9 Diaphragmatic hernia without obstruction or gangrene; R79.89 Other specified abnormal findings of blood chemistry; I10 Essential (primary) hypertension; E03.9 Hypothyroidism, unspecified; F41.9 Anxiety disorder, unspecified; F32.9 Major depressive disorder, single episode, unspecified; Z87.891 Personal history of nicotine dependence; Z79.82 Long term (current) use of aspirin; Z79.891 Long term (current) use of opiate analgesic; Z79.890 Hormone replacement therapy; Z79.899 Other long term (current) drug therapy; Z88.1 Allergy status to other antibiotic agents; Z53.29 Procedure and treatment not carried out because of patient's decision for other reasons
CPT/HCPCS: 36415; 93005; 85379; 83880; 80048; 84484; 85025; 71046; 71275; 99285; 96374; Q9967

== ENCOUNTER → 2019-01-27 | Outpatient (CLI) | payer MEDICARE ==
[2019-01-27 19:08] LABS: Albumin 4.2 g/dL (3.80-4.90); Albumin/Globulin Ratio 2.1 (1.60-3.17); Calcium 9.8 mg/dL (8.7-10.3); Potassium 4.4 mmol/L (3.5-5.5); Total Bilirubin 0.3 mg/dL (0.3-1.2); Total Protein 6.2 g/dL (6.2-8.2)
== END | disposition home or self-care (01) ==
LOC: LABWHC1 14:40
PROVIDERS: ATTEND Nurse Practitioner
DX: R79.89 Other specified abnormal findings of blood chemistry (principal)
CPT/HCPCS: 36415; 80053

== ENCOUNTER → 2019-01-27 | Outpatient (CLI) | payer MEDICARE ==
[2019-01-27 15:29] LABS: Basophils # (A) 0.1 k/uL (0-0.2); Basophils % (A) 1 %; Eosinophils # (A) 0.2 k/uL (0-0.7); Eosinophils % (A) 3 %; HCT 37.6 % (34.0-46.0); HGB 12.4 gm/dL (11.4-16.0); Lymphocytes # (A) 2.5 k/uL (1.0-4.8); Lymphocytes % (A) 34 %; MCH 31.7 pg (25.0-35.0); MCHC 32.8 g/dL (31.0-37.0); MCV 96.4 fL (80.0-100.0); Monocytes # (A) 0.5 k/uL (0-1.0); Monocytes % (A) 7 %; Neutrophils # (A) 3.9 k/uL (1.3-7.7); Neutrophils % (A) 54 %; Platelet Count 283 k/uL (150-450); WBC 7.3 k/uL (3.8-10.6)
== END | disposition home or self-care (01) ==
LOC: LABPAT 14:18
PROVIDERS: ATTEND Surgery
DX: Z01.818 Encounter for other preprocedural examination (principal); Z01.812 Encounter for preprocedural laboratory examination; I10 Essential (primary) hypertension; K43.2 Incisional hernia without obstruction or gangrene; K43.9 Ventral hernia without obstruction or gangrene; R79.89 Other specified abnormal findings of blood chemistry
CPT/HCPCS: 36415; 85025; 93005

== ENCOUNTER → 2019-08-15 | Outpatient (CLI) | payer MEDICARE | END | disposition home or self-care (01) | LOC: BARWHC3 13:40 | PROVIDERS: ATTEND Surgery | DX: Z53.9 Procedure and treatment not carried out, unspecified reason (principal) ==

== ENCOUNTER → 2019-09-19 | Outpatient (CLI) | payer MEDICARE | END | disposition home or self-care (01) | LOC: BARWHC3 14:51 | PROVIDERS: ATTEND Surgery | DX: Z53.9 Procedure and treatment not carried out, unspecified reason (principal) ==

== ENCOUNTER 2019-10-04 08:14 | Day surgery (SDC) | payer MEDICARE ==
[2019-09-29 15:18] VITALS: BMI 25.5
[~2019-10-04 08:14] MED LIST changes: -DEXAMETHASONE SOD PHOSPHATE 10 MG/ML 1 ML VIAL IV ONE; -HEPARIN SODIUM,PORCINE 5,000 UNIT/ML 1 ML VIAL SQ ONE; +LIDOCAINE 1% (10MG/ML) FOR IV START INTRADERMA PRN; -MIDAZOLAM 2 MG/2 ML VIAL IV PRN; -ONDANSETRON 4 MG/2 ML VIAL IVP ONE; -ceFAZolin IN SWFI 2 GM/20 ML SYRINGE IVP ONE; -fentaNYL (PF) 50 MCG/ML 2 ML AMP IV PRN
[2019-10-04 08:43] VITALS: TEMP 97.5
[2019-10-04] MEDS ORDERED: PROPOFOL 10 MG/ML 20 ML VIAL IV ONE (08:57)
[2019-10-04] MEDS ORDERED: LIDOCAINE 1% INJ 10MG/ML (20 ML MDV) ONE (08:57)
--- NOTE | 2019-10-04 09:03 | P.GSHP ---
History of Present Illness H&P Date: 10/04/19 Chief Complaint: Epigastric pain This is a 74-year-old female who presents today for EGD. She's had complaints of epigastric pain. She's being evaluated for possible gastritis. Patient's previous history of LAP-BAND surgery Past Medical History Past Medical History: GERD/Reflux, Hyperlipidemia, Hypertension, Osteoarthritis (OA), Thyroid Disorder Additional Past Medical History / Comment(s): Type 2 DM (resolved), IBS, chronic abd pain, History of Any Multi-Drug Resistant Organisms: VRE Date of last positivie culture/infection: 01/17/19 MDRO Source:: urine Past Surgical History: Appendectomy, Bariatric Surgery, Cholecystectomy, Hernia Repair, Tonsillectomy, Tubal Ligation Additional Past Surgical History / Comment(s): lap band placed 2000(??) Past Anesthesia/Blood Transfusion Reactions: No Reported Reaction Additional Past Anesthesia/Blood Transfusion Reaction / Comment(s): No blood transfusion to date Smoking Status: Current every day smoker - Past Family History Father Family Medical History: Cancer Additional Family Medical History / Comment(s): Prostate and bone cancer Mother Family Medical History: Dementia Medications and Allergies Home Medications Medication Instructions Recorded Confirmed Type Aspirin EC [Ecotrin] 325 mg PO DAILY 07/28/16 09/29/19 History HYDROcodone/APAP 7.5-325MG [[place] 1 tab PO BID 02/16/18 09/29/19 History 7.5-325] Levothyroxine Sodium [Synthroid] 25 mcg PO DAILY 02/16/18 09/29/19 History OLANZapine [ZyPREXA] 10 mg PO DAILY 02/16/18 09/29/19 History Potassium Chloride [Klor-Con 10] 10 meq PO BID 03/11/18 09/29/19 History Cholecalciferol [Vitamin D3 (25 2,000 unit PO DAILY 09/19/18 09/29/19 History Mcg = 1000 Iu)] FLUoxetine HCL [PROzac] 60 mg PO DAILY 10/31/18 09/29/19 History Oxybutynin Chloride [Ditropan XL] 10 mg PO DAILY 12/14/18 09/29/19 History Ascorbic Acid [Vitamin C] 1,000 mg PO DAILY 01/02/19 09/29/19 History Fish Oil/Dha/Epa [Fish Oil 1,200 1 cap PO QID 01/02/19 09/29/19 History mg Fish Oil] Losartan Potassium 50 mg PO DAILY 01/02/19 09/29/19 History cloNIDine HCL [Catapres] 0.1 mg PO HS 01/02/19 09/29/19 History Loperamide [Imodium] 2 mg PO DAILY PRN 01/17/19 09/29/19 History OLANZapine [ZyPREXA] 2.5 mg PO DAILY 01/17/19 09/29/19 History amLODIPine [Norvasc] 5 mg PO DAILY 01/17/19 09/29/19 History Baclofen [Lioresal] 10 mg PO BID 09/29/19 09/29/19 History Omeprazole 20 mg PO DAILY 09/29/19 09/29/19 History Pravastatin Sodium [Pravachol] 40 mg PO DAILY 09/29/19 09/29/19 History Allergies Allergy/AdvReac Type Severity Reaction Status Date / Time ciprofloxacin [From Cipro] Allergy Severe Itching Verified 10/04/19 08:33 amoxicillin Allergy Unknown Verified 10/04/19 08:36 ceftriaxone Allergy Itching Verified 10/04/19 08:33 clindamycin Allergy Unknown Verified 10/04/19 08:36 metronidazole Allergy Unknown Verified 10/04/19 08:36 Surgical - Exam Vital Signs Temp Pulse Resp BP Pulse Ox 97.5 F L 66 17 160/92 96 10/04/19 08:42 10/04/19 08:42 10/04/19 08:42 10/04/19 08:42 10/04/19 08:42 - General well developed, well nourished, no distress - Eyes PERRL - ENT normal pinna - Neck no masses - Respiratory normal expansion - Cardiovascular Rhythm: regular - Abdomen Abdomen: soft, non tender Assessment and Plan Assessment: History of epigastric pain. We'll perform EGD to evaluate for gastritis.
--- NOTE | 2019-10-04 09:10 | P.OP ---
Date of Procedure: 10/04/19 Preoperative Diagnosis: Epigastric pain Postoperative Diagnosis: Mild antral gastritis Procedure(s) Performed: EGD Anesthesia: MAC Surgeon: Gerson Segovia Pathology: other (Antrum) Condition: stable Disposition: PACU Description of Procedure: The patient's placed on the endoscopy table in the lateral position she received IV sedation. The gastroscope placed oropharynx and passed in the esophagus and into the stomach. Scope was then placed through the pylorus. The first and second portion of the duodenum appeared normal. Scope was then brought back the antrum and this was mildly inflamed. A no ulcers seen. A biopsies performed. Scope was retroflexed and remainder the stomach appeared normal. The patient a previous band device placed this was without evidence of erosion or inflammation. The esophagus.. The proximal esophagus appeared normal. Scope was withdrawn for patient.
[2019-10-04 09:35] VITALS: BP 155/83; PULSE 61; RESP 18
== END 2019-10-04 09:39 | disposition home or self-care (01) ==
LOC: ORWHC2ENDO 08:14
PROVIDERS: ATTEND Surgery
DX: K29.50 Unspecified chronic gastritis without bleeding (principal); K21.9 Gastro-esophageal reflux disease without esophagitis; I10 Essential (primary) hypertension; E78.5 Hyperlipidemia, unspecified; K58.9 Irritable bowel syndrome, unspecified; E07.9 Disorder of thyroid, unspecified; M19.90 Unspecified osteoarthritis, unspecified site; F17.200 Nicotine dependence, unspecified, uncomplicated; Z79.82 Long term (current) use of aspirin; Z79.890 Hormone replacement therapy; Z79.899 Other long term (current) drug therapy; Z86.19 Personal history of other infectious and parasitic diseases; Z98.84 Bariatric surgery status; Z90.49 Acquired absence of other specified parts of digestive tract; Z98.51 Tubal ligation status; Z80.42 Family history of malignant neoplasm of prostate; Z80.8 Family history of malignant neoplasm of other organs or systems; Z81.8 Family history of other mental and behavioral disorders; Z88.0 Allergy status to penicillin; Z88.1 Allergy status to other antibiotic agents
CPT/HCPCS: 88305; 43239; J2001; J2704

== ENCOUNTER → 2019-11-07 | Outpatient (CLI) | payer MEDICARE ==
[2019-11-07 13:06] LABS: Basophils % (A) 1 %; Eosinophils % (A) 0 %; HCT 38.7 % (34.0-46.0); HGB 11.9 gm/dL (11.4-16.0); Hypochromasia Slight; Lymphocytes # (A) 2.5 k/uL (1.0-4.8); Lymphocytes % (A) 39 %; MCHC 30.9 g/dL (31.0-37.0); MCV 90.5 fL (80.0-100.0); Mean Platelet Volume 7.5; Monocytes # (A) 0.4 k/uL (0-1.0); Monocytes % (A) 6 %; Neutrophils # (A) 3.2 k/uL (1.3-7.7); Neutrophils % (A) 51 %; Platelet Count 228 k/uL (150-450); RBC 4.27 m/uL (3.80-5.40); RDW 14.2 % (11.5-15.5); WBC 6.3 k/uL (3.8-10.6)
== END | disposition home or self-care (01) ==
LOC: LABPAT 11:45
PROVIDERS: ATTEND Surgery
DX: Z01.818 Encounter for other preprocedural examination (principal); Z01.812 Encounter for preprocedural laboratory examination; K43.2 Incisional hernia without obstruction or gangrene
CPT/HCPCS: 36415; 85025; 93005

== ENCOUNTER 2019-11-10 09:01 | Day surgery (SDC) | payer MEDICARE ==
[2019-11-09 10:52] VITALS: BMI 29.2
[~2019-11-10 09:01] MED LIST changes: +DEXAMETHASONE SOD PHOSPHATE 10 MG/ML 1 ML VIAL IV ONE; +HEPARIN SODIUM,PORCINE 5,000 UNIT/ML 1 ML VIAL SQ ONE; -LACTATED RINGERS 1,000 ML IV SCH; +MIDAZOLAM 2 MG/2 ML VIAL IV PRN; +fentaNYL (PF) 50 MCG/ML 2 ML AMP IV PRN
--- NOTE | 2019-11-10 09:22 | P.GSHP ---
History of Present Illness H&P Date: 11/10/19 Chief Complaint: Recurrent incisional hernia This a 74-year-old female who presents today for open repair of recurrent incisional hernia. Patient has developed an incisional hernia at her open cholecystectomy site in the right upper quadrant. Past Medical History Past Medical History: Diabetes Mellitus, GERD/Reflux, Hyperlipidemia, Hypertension, Osteoarthritis (OA), Thyroid Disorder Additional Past Medical History / Comment(s): Type 2 DM - RECENTLY STARTED METFORMIN , IBS, chronic abd pain, History of Any Multi-Drug Resistant Organisms: VRE Date of last positivie culture/infection: 01/17/19 MDRO Source:: urine Past Surgical History: Appendectomy, Bariatric Surgery, Cholecystectomy, Hernia Repair, Tonsillectomy, Tubal Ligation Additional Past Surgical History / Comment(s): lap band placed 2000(??), Past Anesthesia/Blood Transfusion Reactions: No Reported Reaction Additional Past Anesthesia/Blood Transfusion Reaction / Comment(s): No blood transfusion to date Smoking Status: Current every day smoker - Past Family History Father Family Medical History: Cancer Additional Family Medical History / Comment(s): Prostate and bone cancer Mother Family Medical History: Dementia Medications and Allergies Home Medications Medication Instructions Recorded Confirmed Type Aspirin EC [Ecotrin] 325 mg PO DAILY 07/28/16 11/09/19 History Levothyroxine Sodium [Synthroid] 25 mcg PO DAILY 02/16/18 11/09/19 History OLANZapine [ZyPREXA] 10 mg PO DAILY 02/16/18 11/09/19 History Potassium Chloride [Klor-Con 10] 10 meq PO BID 03/11/18 11/09/19 History Cholecalciferol [Vitamin D3 (25 2,000 unit PO DAILY 09/19/18 11/09/19 History Mcg = 1000 Iu)] FLUoxetine HCL [PROzac] 60 mg PO DAILY 10/31/18 11/09/19 History Oxybutynin Chloride [Ditropan XL] 10 mg PO DAILY 12/14/18 11/09/19 History Fish Oil/Dha/Epa [Fish Oil 1,200 1 cap PO DAILY 01/02/19 11/09/19 History mg Fish Oil] Losartan Potassium 50 mg PO DAILY 01/02/19 11/09/19 History cloNIDine HCL [Catapres] 0.1 mg PO HS 01/02/19 11/09/19 History Loperamide [Imodium] 2 mg PO DAILY PRN 01/17/19 11/09/19 History OLANZapine [ZyPREXA] 2.5 mg PO DAILY 01/17/19 11/09/19 History amLODIPine [Norvasc] 5 mg PO DAILY 01/17/19 11/09/19 History Baclofen [Lioresal] 10 mg PO BID 09/29/19 11/09/19 History Omeprazole 20 mg PO DAILY 09/29/19 11/09/19 History Pravastatin Sodium [Pravachol] 40 mg PO DAILY 09/29/19 11/09/19 History busPIRone HCL 10 mg PO BID 11/09/19 11/09/19 History metFORMIN HCL [Glucophage] 500 mg PO BID 11/09/19 11/09/19 History Allergies Allergy/AdvReac Type Severity Reaction Status Date / Time ciprofloxacin [From Cipro] Allergy Severe Itching Verified 11/10/19 09:19 amoxicillin Allergy Unknown Verified 11/10/19 09:19 cefuroxime Allergy Itching Verified 11/10/19 09:19 clindamycin Allergy Unknown Verified 11/10/19 09:19 metronidazole Allergy Unknown Verified 11/10/19 09:19 Surgical - Exam - General well developed, well nourished, no distress - Eyes PERRL - ENT normal pinna - Neck no masses - Respiratory normal expansion - Cardiovascular Rhythm: regular - Abdomen Abdomen: soft, non tender Hernia: incisional (Incisional hernia repair quadrant) Assessment and Plan Assessment: Incisional hernia. We'll perform open repair.
[2019-11-10] MEDS: LACTATED RINGERS 1,000 ML IV SCH ×2 (09:30→20:57)
[2019-11-10] MEDS ORDERED: ONDANSETRON 4 MG/2 ML VIAL IVP ONE (09:33)
[2019-11-10 09:41] LABS: Glucose,Whole Blood 85 mg/dL (75-99)
[2019-11-10] MEDS ORDERED: BUPIVACAINE (PF) 0.25% 30 ML VIAL SQ ONE (10:24)
[2019-11-10] MEDS ORDERED: NEOSTIGMINE 1 MG/ML 10 ML VIAL ONE (10:28)
[2019-11-10] MEDS ORDERED: GLYCOPYRROLATE 0.2 MG/ML 2 ML VIAL ONE (10:28)
[2019-11-10] MEDS ORDERED: KETOROLAC 30 MG/ML 1 ML VIAL ONE (10:28)
[2019-11-10] MEDS ORDERED: MIDAZOLAM 2 MG/2 ML VIAL ONE (10:28)
[2019-11-10] MEDS ORDERED: ROCURONIUM BROMIDE 10 MG/ML 5 ML VIAL IV ONE (10:28)
[2019-11-10] MEDS ORDERED: PROPOFOL 10 MG/ML 20 ML VIAL IV ONE (10:28)
[2019-11-10] MEDS ORDERED: LIDOCAINE 1% INJ 10MG/ML (20 ML MDV) ONE (10:28)
[2019-11-10] MEDS ORDERED: SUCCINYLCHOLINE CHLORIDE 100 MG/5 ML SYR IV ONE (10:28)
[2019-11-10] MEDS ORDERED: fentaNYL (PF) 50 MCG/ML 2 ML AMP ONE (10:28)
--- NOTE | 2019-11-10 11:28 | P.OP ---
Date of Procedure: 11/10/19 Preoperative Diagnosis: Recurrent incisional hernia Postoperative Diagnosis: Recurrent incisional hernia Procedure(s) Performed: (Of recurrent incisional hernia with mesh Anesthesia: BRANDON Surgeon: Gerson Segovia Estimated Blood Loss (ml): 20 Pathology: other Condition: stable Disposition: PACU Description of Procedure: The patient's placed on the operating table in supine position. She received general anesthesia. Her abdomen was prepped and draped usual sterile fashion. The patient a previous right upper quadrant scar. The skin was incised. The incisional hernia was visualized. There appeared to be a separation of the mesh from the fascia. This point the mesh was resecured with 0 Ethibond suture. The fascia was repaired with interrupted figure 8-0 Ethibond suture. A MOON drains placed over top the repair and brought through separate stab incision. Nancy's fascia closed with 3-0 Vicryl. Skin was closed christian. Patient top she will well and sent to recovery room stable condition..
[2019-11-10] MEDS ORDERED: LABETALOL SYRINGE 5 MG/ML IVP ONE (11:38)
[2019-11-10] MEDS ORDERED: HYDROmorphone 0.5 MG/0.5 ML SYRINGE IVP ONE (12:00)
[2019-11-10] MEDS ORDERED: ONDANSETRON 4 MG/2 ML VIAL IVP PRN (12:37)
[2019-11-10] MEDS ORDERED: HYDROmorphone 1 MG/ML 1 ML SYRINGE IVP PRN (12:37)
[2019-11-10] MEDS ORDERED: ACETAMINOPHEN TAB 325 MG TAB PO PRN (12:37)
[2019-11-10] MEDS ORDERED: NALOXONE 0.4 MG/ML 1 ML VIAL IV PRN (12:37)
[2019-11-10] MEDS ORDERED: METOCLOPRAMIDE 5 MG/ML 2 ML VIAL IVP PRN (12:42)
[2019-11-10] MEDS ORDERED: HYDROcodone/APAP 5-325MG 1 EACH TAB PO PRN (12:42)
[2019-11-10] MEDS ORDERED: HYDROmorphone 0.5 MG/0.5 ML SYRINGE IVP PRN (12:42)
[2019-11-10] MEDS ORDERED: LOPERAMIDE 2 MG CAP PO PRN (12:43)
[2019-11-10] MEDS ORDERED: HYDROcodone/APAP 5-325MG 1 EACH TAB PO ONE (12:45)
[2019-11-10] MEDS ORDERED: NICOTINE 14MG/24HR PATCH TRANSDERM PRN (12:46)
[2019-11-10] MEDS ORDERED: LACTATED RINGERS 1,000 ML IV ONE (13:10)
[2019-11-10] MEDS: SODIUM CHLORIDE 0.9% 1,000 ML IV SCH ×2 (14:31→23:30)
[2019-11-10] MEDS: HEPARIN SODIUM,PORCINE 5,000 UNIT/ML 1 ML VIAL SQ SCH ×2 (15:42→23:32)
[2019-11-10 16:30] LABS: Glucose,Whole Blood 150 mg/dL (75-99)
[2019-11-10] MEDS: INSULIN ASPART (NovoLOG) 100 UNIT/ML VIAL SQ SCH ×2 (16:51→20:53)
[2019-11-10 20:30] LABS: Glucose,Whole Blood 156 mg/dL (75-99)
[2019-11-10] MEDS: BACLOFEN 10 MG TAB PO SCH (20:53)
[2019-11-10] MEDS: busPIRone HCl 10 MG TAB PO SCH (20:53)
[2019-11-10] MEDS ORDERED: cloNIDine HCL 0.1 MG TAB PO SCH (21:00)
[2019-11-11] MEDS ORDERED: LEVOTHYROXINE 25 MCG TAB PO SCH (06:30)
[2019-11-11 07:21] LABS: Glucose,Whole Blood 108 mg/dL (75-99)
[2019-11-11] MEDS ORDERED: PANTOPRAZOLE 40 MG TABLET PO SCH (07:30)
[2019-11-11 07:56] LABS: Basophils % (A) 0 %; Eosinophils % (A) 0 %; HCT 33.8 % (34.0-46.0); HGB 11.3 gm/dL (11.4-16.0); Lymphocytes # (A) 1.8 k/uL (1.0-4.8); Lymphocytes % (A) 18 %; MCH 30.4 pg (25.0-35.0); MCHC 33.2 g/dL (31.0-37.0); MCV 91.4 fL (80.0-100.0); Mean Platelet Volume 7.9; Monocytes # (A) 0.7 k/uL (0-1.0); Monocytes % (A) 7 %; Neutrophils # (A) 7.3 k/uL (1.3-7.7); Neutrophils % (A) 73 %; Platelet Count 188 k/uL (150-450); RDW 14.4 % (11.5-15.5); WBC 10.1 k/uL (3.8-10.6)
[2019-11-11] MEDS: INSULIN ASPART (NovoLOG) 100 UNIT/ML VIAL SQ SCH ×2 (08:10→12:10)
[2019-11-11 08:15] LABS: Potassium 4.1 mmol/L (3.5-5.1)
[2019-11-11] MEDS: HEPARIN SODIUM,PORCINE 5,000 UNIT/ML 1 ML VIAL SQ SCH (08:21)
[2019-11-11] MEDS: busPIRone HCl 10 MG TAB PO SCH (08:21)
[2019-11-11] MEDS: BACLOFEN 10 MG TAB PO SCH (08:21)
[2019-11-11] MEDS ORDERED: methylPREDNISolone SOD SUCCI 125 MG/2 ML VIAL IV STA (08:46)
[2019-11-11] MEDS ORDERED: PRAVASTATIN SODIUM 40 MG TAB PO SCH (09:00)
[2019-11-11] MEDS ORDERED: POTASSIUM CHLORIDE ER 10 MEQ TAB.ER.PRT PO SCH (09:00)
[2019-11-11] MEDS ORDERED: OXYBUTYNIN 10 MG TAB.ER.24 PO SCH (09:00)
[2019-11-11] MEDS ORDERED: LORATADINE 10 MG TAB PO SCH (09:00)
[2019-11-11] MEDS ORDERED: amLODIPine 5 MG TAB PO SCH (09:00)
[2019-11-11] MEDS ORDERED: guaiFENesin 600 MG TABLET.ER PO SCH (09:00)
[2019-11-11] MEDS ORDERED: FLUoxetine HCL 20 MG CAP PO SCH (09:00)
[2019-11-11] MEDS ORDERED: LOSARTAN 50 MG TAB PO SCH (09:00)
[2019-11-11] MEDS ORDERED: OLANZapine 2.5 MG TAB PO SCH (09:00)
[2019-11-11] MEDS ORDERED: OLANZapine 10 MG TAB PO SCH (09:00)
[2019-11-11 09:03] VITALS: BP 140/61; PULSE 65; RESP 17; TEMP 97.9
[2019-11-11 12:06] LABS: Glucose,Whole Blood 90 mg/dL (75-99)
--- NOTE | 2019-11-11 12:27 | P.DS ---
Providers Expected date of discharge: 11/11/19 Attending physician: Gerson Segovia Consults: 11/10/19 12:41 Consult Physician Routine Consulting Provider: [employer] Consult Reason/Comments: medical management Do you want consulting provider notified?: Yes Primary care physician: Mehnaz Beck Hospital Course: 74 old female who underwent repair of incisional hernia with Dr. Segovia. P nona is doing well postoperatively without any immediate complications. She is tolerating diet without nausea or vomiting. Vital signs are stable. Pain controlled on oral medications. Please see EMR for further hospital course details. Discharge Diagnosis: 1. S/P repair of incisional hernia Nurse practitioner note has been reviewed by physician. Signing provider agrees with the documented findings, assessment, and plan of care. Patient Condition at Discharge: Stable Plan - Discharge Summary Discharge Rx Participant: No New Discharge Prescriptions: New Docusate [Colace] 100 mg PO BID #20 capsule HYDROcodone/APAP 5-325MG [[place] 5-325] 1 tab PO Q6HR PRN #10 tab PRN Reason: Pain No Action Aspirin EC [Ecotrin] 325 mg PO DAILY OLANZapine [ZyPREXA] 10 mg PO DAILY Levothyroxine Sodium [Synthroid] 25 mcg PO DAILY Potassium Chloride [Klor-Con 10] 10 meq PO BID Cholecalciferol [Vitamin D3 (25 Mcg = 1000 Iu)] 2,000 unit PO DAILY FLUoxetine HCL [PROzac] 60 mg PO DAILY Oxybutynin Chloride [Ditropan XL] 10 mg PO DAILY cloNIDine HCL [Catapres] 0.1 mg PO HS Losartan Potassium 50 mg PO DAILY Fish Oil/Dha/Epa [Fish Oil 1,200 mg Fish Oil] 1 cap PO DAILY Loperamide [Imodium] 2 mg PO DAILY PRN PRN Reason: LOOSE STOOLS OLANZapine [ZyPREXA] 2.5 mg PO DAILY amLODIPine [Norvasc] 5 mg PO DAILY Pravastatin Sodium [Pravachol] 40 mg PO DAILY Baclofen [Lioresal] 10 mg PO BID Omeprazole 20 mg PO DAILY metFORMIN HCL [Glucophage] 500 mg PO BID busPIRone HCL 10 mg PO BID Discharge Medication List Aspirin EC [Ecotrin] 325 mg PO DAILY 07/28/16 [History] Levothyroxine Sodium [Synthroid] 25 mcg PO DAILY 02/16/18 [History] OLANZapine [ZyPREXA] 10 mg PO DAILY 02/16/18 [History] Potassium Chloride [Klor-Con 10] 10 meq PO BID 03/11/18 [History] Cholecalciferol [Vitamin D3 (25 Mcg = 1000 Iu)] 2,000 unit PO DAILY 09/19/18 [History] FLUoxetine HCL [PROzac] 60 mg PO DAILY 10/31/18 [History] Oxybutynin Chloride [Ditropan XL] 10 mg PO DAILY 12/14/18 [History] Fish Oil/Dha/Epa [Fish Oil 1,200 mg Fish Oil] 1 cap PO DAILY 01/02/19 [History] Losartan Potassium 50 mg PO DAILY 01/02/19 [History] cloNIDine HCL [Catapres] 0.1 mg PO HS 01/02/19 [History] Loperamide [Imodium] 2 mg PO DAILY PRN 01/17/19 [History] OLANZapine [ZyPREXA] 2.5 mg PO DAILY 01/17/19 [History] amLODIPine [Norvasc] 5 mg PO DAILY 01/17/19 [History] Baclofen [Lioresal] 10 mg PO BID 09/29/19 [History] Omeprazole 20 mg PO DAILY 09/29/19 [History] Pravastatin Sodium [Pravachol] 40 mg PO DAILY 09/29/19 [History] busPIRone HCL 10 mg PO BID 11/09/19 [History] metFORMIN HCL [Glucophage] 500 mg PO BID 11/09/19 [History] Docusate [Colace] 100 mg PO BID #20 capsule 11/10/19 [Rx] HYDROcodone/APAP 5-325MG [[place] 5-325] 1 tab PO Q6HR PRN #10 tab 11/10/19 [Rx] Follow up Appointment(s)/Referral(s): Mehnaz Beck DO [Primary Care Provider] - 11/17/19 11:00 am Gerson Segovia MD [STAFF PHYSICIAN] - 11/17/19 2:50 pm Patient Instructions/Handouts: *Surgery [facility] - (Anesthesia) Discharge Instructions Outpatient Surgery, Incisional Hernia (DC)
== END 2019-11-11 14:50 | disposition home or self-care (01) ==
LOC: OR 09:01 → 4SSUR 13:58 → OR 11-11 14:50
PROVIDERS: ATTEND Surgery
DX: K43.2 Incisional hernia without obstruction or gangrene (principal); E11.9 Type 2 diabetes mellitus without complications; K21.9 Gastro-esophageal reflux disease without esophagitis; E78.5 Hyperlipidemia, unspecified; I10 Essential (primary) hypertension; M19.90 Unspecified osteoarthritis, unspecified site; E07.9 Disorder of thyroid, unspecified; Z79.84 Long term (current) use of oral hypoglycemic drugs; K58.9 Irritable bowel syndrome, unspecified; F39 Unspecified mood [affective] disorder; G89.29 Other chronic pain; R10.9 Unspecified abdominal pain; Z86.19 Personal history of other infectious and parasitic diseases; Z90.49 Acquired absence of other specified parts of digestive tract; Z98.84 Bariatric surgery status; Z98.51 Tubal ligation status; Z98.890 Other specified postprocedural states; F17.200 Nicotine dependence, unspecified, uncomplicated; Z80.42 Family history of malignant neoplasm of prostate; Z80.8 Family history of malignant neoplasm of other organs or systems; Z81.8 Family history of other mental and behavioral disorders; Z79.82 Long term (current) use of aspirin; Z79.890 Hormone replacement therapy; Z79.899 Other long term (current) drug therapy; Z88.1 Allergy status to other antibiotic agents; Z88.0 Allergy status to penicillin; Z88.8 Allergy status to other drugs, medicaments and biological substances
CPT/HCPCS: 80048; 85025; 49565; 49568; J2250; J1644 ×2; J1100; J2710; J2930; J0690; J2405; J2001; J3010; J1885; J0330; J2704; J1170

== ENCOUNTER → 2020-03-01 | Outpatient (CLI) | payer MEDICARE ==
[2020-03-01 14:50] LABS: HCT 35.3 % (34.0-46.0); HGB 11.2 gm/dL (11.4-16.0); MCH 28.2 pg (25.0-35.0); MCHC 31.7 g/dL (31.0-37.0); MCV 89.1 fL (80.0-100.0); Mean Platelet Volume 7.3; Platelet Count 291 k/uL (150-450); RBC 3.96 m/uL (3.80-5.40); RDW 14.9 % (11.5-15.5); WBC 7.2 k/uL (3.8-10.6)
[2020-03-01 17:35] LABS: Erythrocyte Sedimentation Rate 60 mm/hr (0-20)
[2020-03-01 18:43] LABS: C Reactive Protein 2.7 mg/dL (0.0-0.8); Chol/HDL Ratio 2.05; LDL Cholesterol,Calculated 47.4 mg/dL (0.0-131.0); VLDL Calculation 17.6 mg/dL (5.00-40.00)
[2020-03-01 18:44] LABS: African American GFR (CKD) 63.4 (60.0-200.0); Albumin 4.3 g/dL (3.80-4.90); Albumin/Globulin Ratio 1.87 (1.60-3.17); Anion Gap 12.2 mmol/L (4.00-12.00); Calcium 9.9 mg/dL (8.7-10.3); Carbon Dioxide 22.8 mmol/L (21.6-31.8); Globulin 2.3 g/dL (1.6-3.3); Non-African American GFR(CKD) 54.7 (60.0-200.0); Potassium 4.3 mmol/L (3.5-5.5); Total Bilirubin 0.3 mg/dL (0.3-1.2); Total Protein 6.6 g/dL (6.2-8.2)
[2020-03-01 18:51] LABS: T4, Free (Free Thyroxine) 1.6 ng/dL (0.80-1.80)
== END | disposition home or self-care (01) ==
LOC: LABWHC1 13:40
PROVIDERS: ATTEND Family Medicine
DX: E11.9 Type 2 diabetes mellitus without complications (principal); F41.9 Anxiety disorder, unspecified; R41.3 Other amnesia
CPT/HCPCS: 36415; 80053; 80061; 83036; 84439; 84443; 85027; 85652; 86140

== ENCOUNTER 2020-03-03 14:21 | Emergency (ER) | payer MEDICARE ==
[2020-03-03 14:41] VITALS: RESP 18
[2020-03-03] MEDS ORDERED: SODIUM CHLORIDE 0.9% 500 ML 500 ML IV SCH (15:00)
[2020-03-03 15:59] LABS: Basophils % (A) 0 %; Eosinophils % (A) 1 %; HCT 35.5 % (34.0-46.0); HGB 11.5 gm/dL (11.4-16.0); Lymphocytes # (A) 0.7 k/uL (1.0-4.8); Lymphocytes % (A) 10 %; MCH 29.3 pg (25.0-35.0); MCHC 32.5 g/dL (31.0-37.0); MCV 90.3 fL (80.0-100.0); Mean Platelet Volume 7.1; Monocytes # (A) 0.2 k/uL (0-1.0); Monocytes % (A) 3 %; Neutrophils # (A) 6.4 k/uL (1.3-7.7); Neutrophils % (A) 86 %; Platelet Count 277 k/uL (150-450); RBC 3.93 m/uL (3.80-5.40); RDW 14.8 % (11.5-15.5); WBC 7.5 k/uL (3.8-10.6)
--- NOTE | 2020-03-03 16:08 | ED ---
Recheck HPI - General Chief Complaint: Recheck/Abnormal Lab/Rx Stated Complaint: UTI Time Seen by Provider: 03/03/20 14:45 Source: patient Mode of arrival: ambulatory Limitations: no limitations - History of Present Illness Initial Comments: 74 year-old female patient presents to the emergency department today sent in by her primary care physician for further evaluation of urinary tract infection and pneumonia. Patient was seen and evaluated on Thursday at her primary care physician's office and was discharged with diagnosis of left lower lobe pneu monia. She was started on Bactrim and prednisone. She states that her physician's office called her today and told her that her urine was positive for infection and she should come in to be evaluated. Patient states that she has been feeling unwell over the last several days. States she feels very shaky and weak. Her daughter is reporting intermittent confusion. Patient denies any fever or chills. Denies nausea or vomiting. Denies any constipation or diarrhea. She denies any current hematuria, dysuria, urinary frequency, urinary urgency. She does report a cough with clear sputum production. Patient denies any recent rash, shortness of breath, chest pain, abdominal pain, diarrhea, c onstipation, back pain, numbness, tingling, dizziness, weakness, headache, visual changes, or any other complaints. - Related Data Home Medications Medication Instructions Recorded Confirmed Aspirin EC [Ecotrin] 325 mg PO DAILY 07/28/16 11/10/19 Levothyroxine Sodium [Synthroid] 25 mcg PO DAILY 02/16/18 11/10/19 OLANZapine [ZyPREXA] 10 mg PO DAILY 02/16/18 11/10/19 Potassium Chloride [Klor-Con 10] 10 meq PO BID 03/11/18 11/10/19 Cholecalciferol [Vitamin D3 (25 2,000 unit PO DAILY 09/19/18 11/10/19 Mcg = 1000 Iu)] FLUoxetine HCL [PROzac] 60 mg PO DAILY 10/31/18 11/10/19 Oxybutynin Chloride [Ditropan XL] 10 mg PO DAILY 12/14/18 11/10/19 Fish Oil/Dha/Epa [Fish Oil 1,200 1 cap PO DAILY 01/02/19 11/10/19 mg Fish Oil] Losartan Potassium 50 mg PO DAILY 01/02/19 11/10/19 cloNIDine HCL [Catapres] 0.1 mg PO HS 01/02/19 11/10/19 Loperamide [Imodium] 2 mg PO DAILY PRN 01/17/19 11/10/19 OLANZapine [ZyPREXA] 2.5 mg PO DAILY 01/17/19 11/10/19 amLODIPine [Norvasc] 5 mg PO DAILY 01/17/19 11/10/19 Baclofen [Lioresal] 10 mg PO BID 09/29/19 11/10/19 Omeprazole 20 mg PO DAILY 09/29/19 11/10/19 Pravastatin Sodium [Pravachol] 40 mg PO DAILY 09/29/19 11/10/19 busPIRone HCL 10 mg PO BID 11/09/19 11/10/19 metFORMIN HCL [Glucophage] 500 mg PO BID 11/09/19 11/10/19 Previous Rx's Medication Instructions Recorded Docusate [Colace] 100 mg PO BID #20 capsule 11/10/19 HYDROcodone/APAP 5-325MG [[place] 1 tab PO Q6HR PRN #10 tab 11/10/19 5-325] Allergies Allergy/AdvReac Type Severity Reaction Status Date / Time ciprofloxacin [From Cipro] Allergy Severe Itching Verified 03/03/20 14:41 amoxicillin Allergy Unknown Verified 03/03/20 14:41 cefuroxime Allergy Itching Verified 03/03/20 14:41 clindamycin Allergy Unknown Verified 03/03/20 14:41 metronidazole Allergy Unknown Verified 03/03/20 14:41 Review of Systems ROS Statement: Those systems with pertinent positive or pertinent negative responses have been documented in the HPI. ROS Other: All systems not noted in ROS Statement are negative. Past Medical History Past Medical History: GERD/Reflux, Hyperlipidemia, Hypertension, Osteoarthritis (OA), Thyroid Disorder Additional Past Medical History / Comment(s): IBS, chronic abd pain, History of Any Multi-Drug Resistant Organisms: VRE Date of last positivie culture/infection: 01/17/19 MDRO Source:: urine Past Surgical History: Cholecystectomy, Hernia Repair, Tonsillectomy, Tubal Ligation Additional Past Surgical History / Comment(s): lap band, Past Anesthesia/Blood Transfusion Reactions: No Reported Reaction Additional Past Anesthesia/Blood Transfusion Reaction / Comment(s): No blood transfusion to date Past Psychological History: Anxiety, Bipolar, Depression, Panic Disorder Smoking Status: Current every day smoker Past Alcohol Use History: None Reported Past Drug Use History: None Reported - Past Family History Father Family Medical History: Cancer Additional Family Medical History / Comment(s): Prostate and bone cancer Mother Family Medical History: Dementia General Exam Limitations: no limitations General appearance: alert, in no apparent distress, other (Physical well- developed, well-nourished elderly female patient in no acute distress. Vital signs upon presentation are temperature 98.6F, pulse 66, respirations 18, blood pressure 112/51, pulse ox 96% on room air.) Eye exam: Present: normal appearance, PERRL, EOMI. Absent: scleral icterus, conjunctival injection, periorbital swelling ENT exam: Present: normal exam, normal oropharynx, mucous membranes moist Respiratory exam: Present: normal lung sounds bilaterally. Absent: respiratory distress, wheezes, rales, rhonchi, stridor Cardiovascular Exam: Present: regular rate, normal rhythm, normal heart sounds. Absent: systolic murmur, diastolic murmur, rubs, gallop, clicks GI/Abdominal exam: Present: soft, normal bowel sounds. Absent: distended, t enderness, guarding, rebound, rigid Neurological exam: Present: alert, oriented X3, CN II-XII intact Psychiatric exam: Present: normal affect, normal mood Skin exam: Present: warm, dry, intact, normal color. Absent: rash Course Vital Signs 03/03/20 14:34 Temperature 98.6 F Pulse Rate 66 Respiratory 18 Rate Blood Pressure 112/51 O2 Sat by Pulse 96 Oximetry Medical Decision Making - Medical Decision Making 74-year-old female patient presents to the emergency department for evaluation after being sent by her physician for urinary tract infection and pneumonia. Patient was evaluated by her doctor on Thursday and started on Bactrim and prednisone. Physical examination did reveal clear equal lung sounds. Abdomen soft and nontender. She is afebrile normal vital signs. Labs reviewed and revealed normal white blood cell count, no evidence for urinary tract infection. There is mild elevation of BUN/creatinine patient reports increased thirst. It does appear that she does have some dehydration. She'll be given 1 L of normal saline. Chest x-ray shows no signs of pneumonia. I did discuss findings and results with the patient. She will be discharged to continue her antibiotics and steroids. She is instructed to increase fluids. She is instructed to follow-up through primary care physician for recheck in 1-2 days. Return parameters were discussed in detail. She verbalizes understanding and agrees with this plan. - Lab Data Result diagrams: 03/03/20 15:38 03/03/20 15:40 Lab Results 03/03/20 03/03/20 03/03/20 Range/Units 15:38 15:40 15:40 WBC 7.5 (3.8-10.6) k/uL RBC 3.93 (3.80-5.40) m/uL Hgb 11.5 (11.4-16.0) gm/dL Hct 35.5 (34.0-46.0) % MCV 90.3 (80.0-100.0) fL MCH 29.3 (25.0-35.0) pg MCHC 32.5 (31.0-37.0) g/dL RDW 14.8 (11.5-15.5) % Plt Count 277 (150-450) k/uL Neutrophils % 86 % Lymphocytes % 10 % Monocytes % 3 % Eosinophils % 1 % Basophils % 0 % Neutrophils # 6.4 (1.3-7.7) k/uL Lymphocytes # 0.7 L (1.0-4.8) k/uL Monocytes # 0.2 (0-1.0) k/uL Eosinophils # 0.0 (0-0.7) k/uL Basophils # 0.0 (0-0.2) k/uL PT 9.4 (9.0-12.0) sec INR 0.9 (<1.2) APTT 21.3 L (22.0-30.0) sec Sodium 133 L (137-145) mmol/L Potassium 5.3 H (3.5-5.1) mmol/L Chloride 104 (98-107) mmol/L Carbon Dioxide 20 L (22-30) mmol/L Anion Gap 9 mmol/L BUN 21 H (7-17) mg/dL Creatinine 1.26 H (0.52-1.04) mg/dL Est GFR (CKD-EPI)AfAm 48 (>60 ml/min/1.73 sqM) Est GFR (CKD-EPI)NonAf 41 (>60 ml/min/1.73 sqM) Glucose 153 H (74-99) mg/dL Plasma Lactic Acid [place] (0.7-2.0) mmol/L Calcium 10.0 (8.4-10.2) mg/dL Total Bilirubin 0.2 (0.2-1.3) mg/dL AST 46 H (14-36) U/L ALT 26 (4-34) U/L Alkaline Phosphatase 92 (38-126) U/L Total Protein 6.7 (6.3-8.2) g/dL Albumin 3.8 (3.5-5.0) g/dL Urine Color Urine Appearance (Clear) Urine pH (5.0-8.0) Ur Specific [place] (1.001-1.035) Urine Protein (Negative) Urine Glucose (UA) (Negative) Urine Ketones (Negative) Urine Blood (Negative) Urine Nitrite (Negative) Urine Bilirubin (Negative) Urine Urobilinogen (<2.0) mg/dL Ur Leukocyte Esterase (Negative) Urine RBC (0-5) /hpf Urine WBC (0-5) /hpf Ur Squamous Epith Cells (0-4) /hpf 03/03/20 03/03/20 Range/Units 15:40 15:45 WBC (3.8-10.6) k/uL RBC (3.80-5.40) m/uL Hgb (11.4-16.0) gm/dL Hct (34.0-46.0) % MCV (80.0-100.0) fL MCH (25.0-35.0) pg MCHC (31.0-37.0) g/dL RDW (11.5-15.5) % Plt Count (150-450) k/uL Neutrophils % % Lymphocytes % % Monocytes % % Eosinophils % % Basophils % % Neutrophils # (1.3-7.7) k/uL Lymphocytes # (1.0-4.8) k/uL Monocytes # (0-1.0) k/uL Eosinophils # (0-0.7) k/uL Basophils # (0-0.2) k/uL PT (9.0-12.0) sec INR (<1.2) APTT (22.0-30.0) sec Sodium (137-145) mmol/L Potassium (3.5-5.1) mmol/L Chloride (98-107) mmol/L Carbon Dioxide (22-30) mmol/L Anion Gap mmol/L BUN (7-17) mg/dL Creatinine (0.52-1.04) mg/dL Est GFR (CKD-EPI)AfAm (>60 ml/min/1.73 sqM) Est GFR (CKD-EPI)NonAf (>60 ml/min/1.73 sqM) Glucose (74-99) mg/dL Plasma Lactic Acid [place] 1.9 (0.7-2.0) mmol/L Calcium (8.4-10.2) mg/dL Total Bilirubin (0.2-1.3) mg/dL AST (14-36) U/L ALT (4-34) U/L Alkaline Phosphatase (38-126) U/L Total Protein (6.3-8.2) g/dL Albumin (3.5-5.0) g/dL Urine Color Light Yellow Urine Appearance Clear (Clear) Urine pH 5.5 (5.0-8.0) Ur Specific [place] 1.007 (1.001-1.035) Urine Protein Negative (Negative) Urine Glucose (UA) Negative (Negative) Urine Ketones Negative (Negative) Urine Blood Negative (Negative) Urine Nitrite Negative (Negative) Urine Bilirubin Negative (Negative) Urine Urobilinogen <2.0 (<2.0) mg/dL Ur Leukocyte Esterase Small H (Negative) Urine RBC <1 (0-5) /hpf Urine WBC 2 (0-5) /hpf Ur Squamous Epith Cells <1 (0-4) /hpf - EKG Data -: EKG Interpreted by Ct EKG Comments: EKG obtained at 1525 shows sinus bradycardia with a ventricular rate of 58, NV interval 196, QRS duration 86, QT 428, QTC 420. No evidence of ST elevation or depression. - Radiology Data Radiology results: report reviewed, image reviewed Two-view x-ray of the chest is obtained. Report was reviewed in its entirety. Impression by Dr. Arroyo shows no active cardiopulmonary disease. No adverse change. Disposition Clinical Impression: Shakiness, Dehydration Disposition: HOME SELF-CARE Condition: Good Instructions (If sedation given, give patient instructions): Dehydration (ED), Weakness (ED) Additional Instructions: Complete medications as prescribed by her primary care doctor. Increase fluids. Follow-up with your primary care physician for recheck in 1-2 days. Return to the emergency department immediately for any new, worsening, or concerning symptoms. Is patient prescribed a controlled substance at d/c from ED?: No Referrals: Mehnaz Beck DO [Primary Care Provider] - 1-2 days Time of Disposition: 17:16
[2020-03-03 16:09] LABS: INR 0.9 (<1.2); Partial Thromboplastin Time 21.3 sec (22.0-30.0); Prothrombin Time 9.4 sec (9.0-12.0)
[2020-03-03 16:13] LABS: Albumin 3.8 g/dL (3.5-5.0); Potassium 5.3 mmol/L (3.5-5.1); Total Bilirubin 0.2 mg/dL (0.2-1.3); Total Protein 6.7 g/dL (6.3-8.2)
[2020-03-03 16:19] LABS: Appearance,Urine Clear (Clear); Bilirubin,Urine Negative (Negative); Blood,Urine Negative (Negative); Color,Urine Light Yellow; Glucose,Urine (UA) Negative (Negative); Ketones,Urine Negative (Negative); Leukocyte Esterase,Urine Small (Negative); Nitrite,Urine Negative (Negative); PH, Urine 5.5 (5.0-8.0); Protein,Urine Negative (Negative); RBC,Urine <1 /hpf (0-5); Specific Gravity,Urine 1.007 (1.001-1.035); Squamous Epithelial Cell,Urine <1 /hpf (0-4); Urobilinogen,Urine <2.0 mg/dL (<2.0); WBC,Urine 2 /hpf (0-5)
--- NOTE | 2020-03-03 16:21 | XR ---
EXAMINATION TYPE: XR chest 2V DATE OF EXAM: 03/03/2020 COMPARISON: 01/21/2019 HISTORY: Fever TECHNIQUE: 2 views FINDINGS: Heart and mediastinum are normal. Lungs are clear. Diaphragm is normal. Bony thorax appears normal. There is cervical spine fusion surgery. IMPRESSION: No active cardiopulmonary disease. No adverse change.
[2020-03-03] MEDS ORDERED: SODIUM CHLORIDE 0.9% 1,000 ML IV ONE (16:29)
[2020-03-03 17:59] VITALS: BP 144/64; PULSE 60; TEMP 98.1
== END 2020-03-03 17:59 | disposition home or self-care (01) ==
LOC: EC 14:21
DX: E86.0 Dehydration (principal); R79.89 Other specified abnormal findings of blood chemistry; R05 Cough; K21.9 Gastro-esophageal reflux disease without esophagitis; E78.5 Hyperlipidemia, unspecified; I10 Essential (primary) hypertension; M19.90 Unspecified osteoarthritis, unspecified site; E07.9 Disorder of thyroid, unspecified; K58.9 Irritable bowel syndrome, unspecified; F17.200 Nicotine dependence, unspecified, uncomplicated; F32.9 Major depressive disorder, single episode, unspecified; F41.9 Anxiety disorder, unspecified; Z79.82 Long term (current) use of aspirin; Z79.899 Other long term (current) drug therapy; Z87.440 Personal history of urinary (tract) infections; Z87.01 Personal history of pneumonia (recurrent); Z88.1 Allergy status to other antibiotic agents; Z88.0 Allergy status to penicillin; Z88.3 Allergy status to other anti-infective agents
CPT/HCPCS: 36415; 71046; 80053; 81001; 83605; 85025; 85610; 85730; 87040; 93005; 96360; 99284

== ENCOUNTER → 2020-03-09 | Outpatient (CLI) | payer MEDICARE ==
--- NOTE | 2020-03-10 03:55 | MR ---
EXAMINATION TYPE: MR brain wo/w con DATE OF EXAM: 03/09/2020 COMPARISON: None HISTORY: Confusion, short term memory loss CONTRAST: Standard multiplanar, multisequence MRI departmental protocol utilizing 7 mL intravenous Gadavist jose olinium contrast. There is mild cerebral cortical atrophy. There is no mass effect nor midline shift. There is no sign of intracranial hemorrhage. Diffusion images show no evidence of acute cortical infarct. Corpus callo sum appears intact. Brainstem is intact. There is no evidence of cerebral edema. Palmer-white matter st ructures have overall fairly normal signal pattern. I see no evidence of lacunar infarct. Contrast images show no pathologic enhancement. There is normal enhancement of the venous sinuses. IMPRESSION: There is mild atrophy appropriate for age. Otherwise negative exam.
== END | disposition home or self-care (01) ==
LOC: RADMRIMAIN 15:34
PROVIDERS: ATTEND Family Medicine
DX: G31.9 Degenerative disease of nervous system, unspecified (principal)
CPT/HCPCS: 70553; A9585

== ENCOUNTER → 2020-03-14 | Outpatient (CLI) | payer MEDICARE ==
--- NOTE | 2020-03-14 15:35 | CT ---
EXAMINATION TYPE: CT chest wo con DATE OF EXAM: 03/14/2020 COMPARISON: None HISTORY: Bronchiectasis CT DLP: 296.20 mGycm, Automated exposure control for dose reduction was used. CONTRAST: Performed without contrast due to elevated renal function tests. TECHNIQUE: Axial images were obtained at 5 mm thick sections. Reconstructed images are reviewed on [employer] computer in the coronal plane. FINDINGS: Portion of the thyroid visualized is normal. Vague areas of pneumonitis are scattered through the bilateral lung chen. These groundglass opaciti es are nonspecific. Differential diagnosis could include atypical pneumonia, evaluate for coronavirus . Pulmonary edema can have this appearance. No enlarged mediastinal or hilar adenopathy is evident. The ascending aorta diameter at the level o f the main pulmonary artery is 3.6 cm. The main pulmonary artery diameter at the bifurcation is 2.5 cm. Some coronary artery calcification is present. Limited CT sections are obtained through the upper abdomen. Lap band is evident. IMPRESSIONS: 1. Groundglass opacities scattered through the bilateral lungs, best visualized on lung windows are n onspecific. Atypical pneumonia and pulmonary edema or primary within the differential.
== END | disposition home or self-care (01) ==
LOC: RADCTMAIN 12:50
PROVIDERS: ATTEND Family Medicine
DX: R91.8 Other nonspecific abnormal finding of lung field (principal); J47.9 Bronchiectasis, uncomplicated
CPT/HCPCS: 36415; 71250; 82565; 84520

== ENCOUNTER 2020-04-21 13:19 | Observation (INO) | payer MEDICARE ==
[2020-04-21] MEDS ORDERED: SODIUM CHLORIDE 0.9% 500 ML 500 ML IV ONE (13:49)
--- NOTE | 2020-04-21 13:55 | ED ---
General Adult HPI - General Source: patient, family, RN notes reviewed, old records reviewed Mode of arrival: wheelchair Limitations: altered mental status <Malvin Finney - Last Filed: 04/21/20 14:46> <Riana Bueno - Last Filed: 04/21/20 15:37> - General Chief complaint: Recheck/Abnormal Lab/Rx Stated complaint: Altered Mental Status Time Seen by Provider: 04/21/20 13:41 - History of Present Illness Initial comments: 74-year-old female with worsening confusion. Patient has had some issues with confusion over the past several months. She is following with her doctor regarding possible dementia. This morning her son had attempted to wake her, she was quite difficult to wake and was confused, not knowing where she was or who she was with. There is no reported vomiting. No fever. No complaints of focal numbness or weakness. Patient denying any specific complaints, alert to self. (Malvin Finney) - Related Data Home Medications Medication Instructions Recorded Confirmed Aspirin EC [Ecotrin] 325 mg PO DAILY 07/28/16 11/10/19 Levothyroxine Sodium [Synthroid] 25 mcg PO DAILY 02/16/18 11/10/19 OLANZapine [ZyPREXA] 10 mg PO DAILY 02/16/18 11/10/19 Potassium Chloride [Klor-Con 10] 10 meq PO BID 03/11/18 11/10/19 Cholecalciferol [Vitamin D3 (25 2,000 unit PO DAILY 09/19/18 11/10/19 Mcg = 1000 Iu)] FLUoxetine HCL [PROzac] 60 mg PO DAILY 10/31/18 11/10/19 Oxybutynin Chloride [Ditropan XL] 10 mg PO DAILY 12/14/18 11/10/19 Fish Oil/Dha/Epa [Fish Oil 1,200 1 cap PO DAILY 01/02/19 11/10/19 mg Fish Oil] Losartan Potassium 50 mg PO DAILY 01/02/19 11/10/19 cloNIDine HCL [Catapres] 0.1 mg PO HS 01/02/19 11/10/19 Loperamide [Imodium] 2 mg PO DAILY PRN 01/17/19 11/10/19 OLANZapine [ZyPREXA] 2.5 mg PO DAILY 01/17/19 11/10/19 amLODIPine [Norvasc] 5 mg PO DAILY 01/17/19 11/10/19 Baclofen [Lioresal] 10 mg PO BID 09/29/19 11/10/19 Omeprazole 20 mg PO DAILY 09/29/19 11/10/19 Pravastatin Sodium [Pravachol] 40 mg PO DAILY 09/29/19 11/10/19 busPIRone HCL 10 mg PO BID 11/09/19 11/10/19 metFORMIN HCL [Glucophage] 500 mg PO BID 11/09/19 11/10/19 Previous Rx's Medication Instructions Recorded Docusate [Colace] 100 mg PO BID #20 capsule 11/10/19 HYDROcodone/APAP 5-325MG [[place] 1 tab PO Q6HR PRN #10 tab 11/10/19 5-325] Allergies Allergy/AdvReac Type Severity Reaction Status Date / Time ciprofloxacin [From Cipro] Allergy Severe Itching Verified 04/21/20 13:26 amoxicillin Allergy Unknown Verified 04/21/20 13:26 cefuroxime Allergy Itching Verified 04/21/20 13:26 clindamycin Allergy Unknown Verified 04/21/20 13:26 metronidazole Allergy Unknown Verified 04/21/20 13:26 Review of Systems ROS Other: All systems not noted in ROS Statement are negative. <Malvin Finney - Last Filed: 04/21/20 14:46> ROS Other: All systems not noted in ROS Statement are negative. <Riana Bueno - Last Filed: 04/21/20 15:37> ROS Statement: Those systems with pertinent positive or pertinent negative responses have been documented in the HPI. Past Medical History Past Medical History: GERD/Reflux, Hyperlipidemia, Hypertension, Osteoarthritis (OA), Thyroid Disorder Additional Past Medical History / Comment(s): IBS, chronic abd pain, History of Any Multi-Drug Resistant Organisms: VRE Date of last positivie culture/infection: 01/17/19 MDRO Source:: urine Past Surgical History: Cholecystectomy, Hernia Repair, Tonsillectomy, Tubal Ligation Additional Past Surgical History / Comment(s): lap band, Past Anesthesia/Blood Transfusion Reactions: No Reported Reaction Additional Past Anesthesia/Blood Transfusion Reaction / Comment(s): No blood transfusion to date Past Psychological History: Anxiety, Bipolar, Depression, Panic Disorder Smoking Status: Never smoker Past Alcohol Use History: None Reported Past Drug Use History: None Reported - Past Family History Father Family Medical History: Cancer Additional Family Medical History / Comment(s): Prostate and bone cancer Mother Family Medical History: Dementia <Malvin Finney - Last Filed: 04/21/20 14:46> General Exam Limitations: altered mental status General appearance: alert, in no apparent distress Head exam: Present: atraumatic, normocephalic Eye exam: Present: normal appearance, PERRL ENT exam: Present: normal exam Neck exam: Present: normal inspection. Absent: tenderness, meningismus Respiratory exam: Present: normal lung sounds bilaterally. Absent: respiratory distress, wheezes Cardiovascular Exam: Present: regular rate, normal rhythm GI/Abdominal exam: Present: soft. Absent: distended, tenderness Extremities exam: Present: normal inspection, normal capillary refill. Absent: pedal edema Neurological exam: Present: alert. Absent: oriented X3, motor sensory deficit (There is no focal findings, patient is oriented 1, slow to respond.) Psychiatric exam: Present: flat affect Skin exam: Present: warm, dry, intact. Absent: cyanosis, diaphoretic <Malvin Finney - Last Filed: 04/21/20 14:46> Course <Malvin Finney - Last Filed: 04/21/20 14:46> Vital Signs 04/21/20 13:22 Temperature 98.5 F Pulse Rate 67 Respiratory 18 Rate Blood Pressure 139/76 O2 Sat by Pulse 96 Oximetry - Reevaluation(s) Reevaluation #1: 04/21/20 1500 Patient is currently awaiting laboratory testing, urinalysis, and CT of the brain. Patient's care will be signed out to Dr. Bueno at shift change awaiting these results. (Malvin Finney) EKG Findings - EKG Comments: EKG Findings:: EKG: Sinus bradycardia, low voltage, rate of 56, [place] interval 196, QRS duration 90, QTC 451, no ST segment elevation. <Malvin Finney - Last Filed: 04/21/20 14:46> Medical Decision Making - Lab Data Result diagrams: 04/21/20 14:01 04/21/20 14:01 <Malvin Finney - Last Filed: 08/15/20 14:46> - Lab Data Result diagrams: 04/21/20 14:01 04/21/20 14:01 <Riana Bueno - Last Filed: 04/21/20 15:37> - Medical Decision Making Patient is reevaluated and still reports that she feels confused. Son feels uncomfortable taking her home as she does live alone. I discussed the case with Dr. Morgan who agreed to admit the patient. Family is made aware that we do not have neurology this weekend. They understand the risk of not having neurology on staff until thursday and continued to agree to hospitalization. Patient is currently waiting on the floor (Riana Bueno) - Lab Data Lab Results 04/21/20 04/21/20 04/21/20 Range/Units 14: 14: 14:01 WBC 4.9 (3.8-10.6) k/uL RBC 3.98 (3.80-5.40) m/uL Hgb 11.0 L (11.4-16.0) gm/dL Hct 35.1 (34.0-46.0) % MCV 88.0 (80.0-100.0) fL MCH 27.5 (25.0-35.0) pg MCHC 31.3 (31.0-37.0) g/dL RDW 15.0 (11.5-15.5) % Plt Count 178 (150-450) k/uL Neutrophils % 43 % Lymphocytes % 44 % Monocytes % 8 % Eosinophils % 1 % Basophils % 1 % Neutrophils # 2.1 (1.3-7.7) k/uL Lymphocytes # 2.1 (1.0-4.8) k/uL Monocytes # 0.4 (0-1.0) k/uL Eosinophils # 0.0 (0-0.7) k/uL Basophils # 0.0 (0-0.2) k/uL Hypochromasia Slight PT 9.9 (9.0-12.0) sec INR 0.9 (<1.2) APTT 22.2 (22.0-30.0) sec Sodium (137-145) mmol/L Potassium (3.5-5.1) mmol/L Chloride (98-107) mmol/L Carbon Dioxide (22-30) mmol/L Anion Gap mmol/L BUN (7-17) mg/dL Creatinine (0.52-1.04) mg/dL Est GFR (CKD-EPI)AfAm (>60 ml/min/1.73 sqM) Est GFR (CKD-EPI)NonAf (>60 ml/min/1.73 sqM) Glucose (74-99) mg/dL POC Glucose (mg/dL) (75-99) mg/dL POC Glu Clinical Unit Coordinator ID Calcium (8.4-10.2) mg/dL Total Bilirubin (0.2-1.3) mg/dL AST (14-36) U/L ALT (4-34) U/L Alkaline Phosphatase (38-126) U/L Total Protein (6.3-8.2) g/dL Albumin (3.5-5.0) g/dL Urine Color Yellow Urine Appearance Cloudy H (Clear) Urine pH 6.0 (5.0-8.0) Ur Specific [place] 1.010 (1.001-1.035) Urine Protein Negative (Negative) Urine Glucose (UA) Negative (Negative) Urine Ketones Negative (Negative) Urine Blood Negative (Negative) Urine Nitrite Negative (Negative) Urine Bilirubin Negative (Negative) Urine Urobilinogen <2.0 (<2.0) mg/dL Ur Leukocyte Esterase Large (Negative) Urine RBC 3 (0-5) /hpf Urine WBC 42 H (0-5) /hpf Ur Squamous Epith Cells 21 H (0-4) /hpf Hyaline Casts 6 H (0-2) /lpf Urine Mucus Rare H (None) /hpf 04/21/20 04/21/20 Range/Units 14:01 14:11 WBC (3.8-10.6) k/uL RBC (3.80-5.40) m/uL Hgb (11.4-16.0) gm/dL Hct (34.0-46.0) % MCV (80.0-100.0) fL MCH (25.0-35.0) pg MCHC (31.0-37.0) g/dL RDW (11.5-15.5) % Plt Count (150-450) k/uL Neutrophils % % Lymphocytes % % Monocytes % % Eosinophils % % Basophils % % Neutrophils # (1.3-7.7) k/uL Lymphocytes # (1.0-4.8) k/uL Monocytes # (0-1.0) k/uL Eosinophils # (0-0.7) k/uL Basophils # (0-0.2) k/uL Hypochromasia PT (9.0-12.0) sec INR (<1.2) APTT (22.0-30.0) sec Sodium 136 L (137-145) mmol/L Potassium 3.9 (3.5-5.1) mmol/L Chloride 107 (98-107) mmol/L Carbon Dioxide 22 (22-30) mmol/L Anion Gap 7 mmol/L BUN 14 (7-17) mg/dL Creatinine 1.00 (0.52-1.04) mg/dL Est GFR (CKD-EPI)AfAm 64 (>60 ml/min/1.73 sqM) Est GFR (CKD-EPI)NonAf 55 (>60 ml/min/1.73 sqM) Glucose 116 H (74-99) mg/dL POC Glucose (mg/dL) 100 H (75-99) mg/dL POC Glu Clinical Unit Coordinator ID Elke Silva Calcium 9.5 (8.4-10.2) mg/dL Total Bilirubin 0.4 (0.2-1.3) mg/dL AST 33 (14-36) U/L ALT 17 (4-34) U/L Alkaline Phosphatase 85 (38-126) U/L Total Protein 5.8 L (6.3-8.2) g/dL Albumin 3.4 L (3.5-5.0) g/dL Urine Color Urine Appearance (Clear) Urine pH (5.0-8.0) Ur Specific [place] (1.001-1.035) Urine Protein (Negative) Urine Glucose (UA) (Negative) Urine Ketones (Negative) Urine Blood (Negative) Urine Nitrite (Negative) Urine Bilirubin (Negative) Urine Urobilinogen (<2.0) mg/dL Ur Leukocyte Esterase (Negative) Urine RBC (0-5) /hpf Urine WBC (0-5) /hpf Ur Squamous Epith Cells (0-4) /hpf Hyaline Casts (0-2) /lpf Urine Mucus (None) /hpf Disposition <Malvin Finney - Last Filed: 04/21/20 14:46> Is patient prescribed a controlled substance at d/c from ED?: No Decision to Admit Reason: Admit from EC Decision Date: 04/21/20 Decision Time: 15:37 <Riana Bueno - Last Filed: 04/21/20 15:37> Clinical Impression: Encephalopathy Disposition: ADMITTED IP TO THIS HOSP Condition: Stable Referrals: Mehnaz Beck DO [Primary Care Provider] - 1-2 days
[2020-04-21 14:12] LABS: Glucose,Whole Blood 100 mg/dL (75-99)
[2020-04-21 14:13] LABS: Basophils % (A) 1 %; Eosinophils % (A) 1 %; HCT 35.1 % (34.0-46.0); Hypochromasia Slight; Lymphocytes # (A) 2.1 k/uL (1.0-4.8); Lymphocytes % (A) 44 %; MCH 27.5 pg (25.0-35.0); MCHC 31.3 g/dL (31.0-37.0); Mean Platelet Volume 7.8; Monocytes # (A) 0.4 k/uL (0-1.0); Monocytes % (A) 8 %; Neutrophils # (A) 2.1 k/uL (1.3-7.7); Neutrophils % (A) 43 %; Platelet Count 178 k/uL (150-450); RBC 3.98 m/uL (3.80-5.40); WBC 4.9 k/uL (3.8-10.6)
[2020-04-21 14:22] LABS: INR 0.9 (<1.2); Partial Thromboplastin Time 22.2 sec (22.0-30.0); Prothrombin Time 9.9 sec (9.0-12.0)
[2020-04-21 14:26] LABS: Albumin 3.4 g/dL (3.5-5.0); Calcium 9.5 mg/dL (8.4-10.2); Potassium 3.9 mmol/L (3.5-5.1); Total Bilirubin 0.4 mg/dL (0.2-1.3); Total Protein 5.8 g/dL (6.3-8.2)
[2020-04-21 14:51] LABS: Hyaline Casts,Urine 6 /lpf (0-2); Mucus,Urine Rare /hpf; RBC,Urine 3 /hpf (0-5); Squamous Epithelial Cell,Urine 21 /hpf (0-4); WBC,Urine 42 /hpf (0-5)
--- NOTE | 2020-04-21 15:07 | CT ---
EXAMINATION TYPE: CT brain wo con DATE OF EXAM: 04/21/2020 COMPARISON: 07/28/2016 HISTORY: Confusion CT DLP: 1083.4 mGycm Automated exposure control for dose reduction was used. Multiple axial sections were obtained of the brain without contrast. There is mild cerebral cortical atrophy. There is no mass effect nor midline shift. There is no sign of intracranial hemorrhage. Calvarium is intact. Skull base is intact. IMPRESSION: Cerebral atrophy. No acute intracranial abnormality. No adverse change compared to old exam.
[2020-04-21 15:11] LABS: Appearance,Urine Cloudy (Clear); Bilirubin,Urine Negative (Negative); Blood,Urine Negative (Negative); Color,Urine Yellow; Glucose,Urine (UA) Negative (Negative); Ketones,Urine Negative (Negative); Protein,Urine Negative (Negative); Urobilinogen,Urine <2.0 mg/dL (<2.0)
[2020-04-21 15:12] LABS: Leukocyte Esterase,Urine Large (Negative); Nitrite,Urine Negative (Negative)
[2020-04-21] MEDS ORDERED: NALOXONE 0.4 MG/ML 1 ML VIAL IV PRN (15:38)
[2020-04-21] MEDS ORDERED: ACETAMINOPHEN TAB 500 MG TAB PO PRN (17:18)
[2020-04-21] MEDS ORDERED: ALPRAZolam 0.25 MG TAB PO PRN (17:18)
[2020-04-21] MEDS: AZTREONAM 1 GM in SODIUM CHLORIDE 0.9% 50 ML IVPB SCH (18:20)
[2020-04-21] MEDS: SODIUM CHLORIDE 0.9% 1,000 ML IV SCH (18:20)
--- NOTE | 2020-04-21 19:10 | HP ---
HISTORY AND PHYSICAL CHIEF COMPLAINT: Change in mental status. HISTORY OF PRESENT ILLNESS: This 74-year-old woman with a past medical history of multiple medical problems including history of GERD, hypertension, DJD, history of irritable bowel syndrome, history of VRE being followed by Dr. Mehnaz Beck in the outpatient setting. The patient was found to be confused this morning. The son actually tried to wake her up, but she was very difficult to be aroused and she woke up around noon, slightly groggy and was unable to remember and talk properly and because of that, the patient came to [facility] for further evaluation and treatment. A CT of the brain was done which showed cerebral atrophy. No acute changes noted. There is no history of fever, rigors or chills. No history of headache, loss of consciousness, seizures. PAST MEDICAL HISTORY: History of hyperlipidemia, hypertension, DJD, history of irritable bowel syndrome, chronic abdominal pain, VRE, GERD. MEDICATIONS: Prior to admission include: 1. Glucophage. 2. Catapres. 3. Buspirone. 4. Norvasc. 5. Propofol. 6. Klor-Con. 8. Omeprazole. 9. Zyprexa. 10.Losartan. 11.Imodium. 12.Synthroid. 13.[place]. Fish oil. 14.Prozac. 15.Colace. 16.Vitamin D3. 17.Baclofen. 18.Ecotrin. ALLERGIES: CIPROFLOXACIN, AMOXICILLIN, CEFUROXIME, CLINDAMYCIN, FLAGYL. FAMILY HISTORY: History of prostate and bronch cancer. SOCIAL HISTORY: History of smoking, continued, ongoing. REVIEW OF SYSTEMS: ENT: Diminished vision. Diminished hearing. CARDIOVASCULAR: No angina or palpitations. RESPIRATIONS: No cough. GI no nausea or vomiting. : No dysuria. NERVOUS SYSTEM: As mentioned. ALLERGY/IMMUNOLOGY: No asthma or hayfever. MUSCULOSKELETAL as mentioned earlier. HEMATOLOGY/ONCOLOGY: No history of anemia. ENDOCRINE: Diabetes. CONSTITUTIONAL: As mentioned earlier. DERMATOLOGY: Negative. RHEUMATOLOGY: Negative. PSYCHIATRY: As mentioned earlier. PHYSICAL EXAMINATION: Alert and oriented times one. Pulse is 56. Blood pressure 171/60, respirations 17, temperature is normal. Pulse ox 91 percent on room air. HEENT: Conjunctivae normal. Oral mucosa moist. NECK is no jugular venous distention. No carotid bruit. Lymph node enlargement. CARDIOVASCULAR system: S1, S2 muffled. RESPIRATION: Breath sounds diminished in the bases. No rhonchi. No crackles. ABDOMEN: Soft, nontender. No mass palpable. LEGS no edema NERVOUS SYSTEM: Higher functions as mentioned earlier. Moves all 4 limbs. No focal motor or sensory deficits. LYMPHATICS: No lymph nodes palpable in the neck, axillae or groin. SKIN: No ulcer, rash, bleeding. JOINTS: No active deforming arthropathy. LABS: At this time shows WBC 4.2, hemoglobin 11, sodium is 136 and glucose is 100 and albumin is 3.3. UA noted. ASSESSMENT: 1. Change in mental status, possibly acute metabolic encephalopathy, rule out transient ischemic attack. 2. Possible acute urinary tract infection, present on admission. 3. Hyponatremia, mild. 4. History of gastroesophageal reflux disease. 5. Hypertension. 6. Hyperlipidemia. 7. History of degenerative joint disease. 8. History of dementia. 9. History of irritable bowel syndrome. 10.History of VRE. 11.History of chronic abdominal pain. 12.History of cholecystectomy. 13.Anxiety, bipolar depression, panic disorder, OCD. 14.FULL CODE. RECOMMENDATIONS AND DISCUSSION: This 74-year-old woman who presented with multiple complex medical issues, we will monitor the patient closely. Continue the current medications, and symptomatic treatment. Otherwise, at this time, I recommend resume the home medications. Antiplatelet agents. Neuro checks. Complete neurovascular workup. I would also recommend a course of antibiotics also. We will continue to monitor. Prognosis guarded. Further recommendations to follow. MMCARAL / BYRONN: [id number] / MTDD
[2020-04-21] MEDS: HEPARIN SODIUM,PORCINE 5,000 UNIT/ML 1 ML VIAL SQ SCH (22:46)
[2020-04-21] MEDS: cloNIDine HCL 0.1 MG TAB PO SCH (22:46)
[2020-04-22] MEDS: AZTREONAM 1 GM in SODIUM CHLORIDE 0.9% 50 ML IVPB SCH ×4 (00:22→23:20)
[2020-04-22] MEDS: PANTOPRAZOLE 40 MG TABLET PO SCH (07:23)
[2020-04-22] MEDS: ASPIRIN 325 MG TAB PO SCH (07:23)
[2020-04-22] MEDS: LOSARTAN 50 MG TAB PO SCH (07:24)
[2020-04-22] MEDS: PRAVASTATIN SODIUM 40 MG TAB PO SCH (07:24)
[2020-04-22] MEDS: amLODIPine 5 MG TAB PO SCH (07:24)
[2020-04-22] MEDS: LEVOTHYROXINE 25 MCG TAB PO SCH (07:24)
[2020-04-22] MEDS: SODIUM CHLORIDE 0.9% 1,000 ML IV SCH ×2 (07:24→16:30)
[2020-04-22] MEDS: HEPARIN SODIUM,PORCINE 5,000 UNIT/ML 1 ML VIAL SQ SCH ×2 (07:24→20:15)
[2020-04-22] MEDS: OLANZapine 2.5 MG TAB PO SCH (07:30)
[2020-04-22] MEDS: OXYBUTYNIN 10 MG TAB.ER.24 PO SCH (07:31)
[2020-04-22 09:45] LABS: Basophils % (A) 1 %; Eosinophils % (A) 0 %; HGB 10.8 gm/dL (11.4-16.0); Hypochromasia Moderate; Lymphocytes # (A) 2.6 k/uL (1.0-4.8); Lymphocytes % (A) 51 %; MCH 27.1 pg (25.0-35.0); MCHC 30.1 g/dL (31.0-37.0); MCV 90.2 fL (80.0-100.0); Monocytes # (A) 0.4 k/uL (0-1.0); Monocytes % (A) 7 %; Neutrophils # (A) 1.9 k/uL (1.3-7.7); Neutrophils % (A) 37 %; Platelet Count 182 k/uL (150-450); RBC 3.99 m/uL (3.80-5.40); RDW 14.9 % (11.5-15.5); WBC 5.1 k/uL (3.8-10.6)
[2020-04-22 10:00] LABS: Calcium 9.5 mg/dL (8.4-10.2); Potassium 3.7 mmol/L (3.5-5.1)
[2020-04-22] MEDS: HYDROcodone/APAP 10-325MG 1 EACH TAB PO PRN (16:30)
--- NOTE | 2020-04-22 17:43 | PN ---
PROGRESS NOTE DATE OF SERVICE: 04/22/2020 This 74-year-old woman was admitted with change in mental status is being closely monitored. No chest pain. No palpitations. No fever. The CT scan of the brain showed only cerebral atrophy. REVIEW OF SYSTEMS: CARDIOVASCULAR SYSTEM: No angina. RESPIRATION as mentioned earlier. GI: As mentioned earlier. : No dysuria. NERVOUS SYSTEM: No numbness, weakness. CURRENT MEDICATIONS: Reviewed and include: 1. Tylenol. 2. [place]. 3. Xanax. 4. Norvasc. 5. Aspirin. 6. Aztreonam. 7. Synthroid. 8. Cozaar. 9. Narcan. 10.Zyprexa. 11.Ditropan XL. 12.Protonix. 13.Pravachol. 14.Doses reviewed. PHYSICAL EXAMINATION: Alert and oriented x3. Pulse is 58. Blood pressure is 130/68 with minimal orthostatic changes, 111/69, respirations 20, temperature is normal. HEENT: Conjunctivae normal. NECK: No JVD. CARDIOVASCULAR: S1, S2 muffled. RESPIRATORY: Breath sounds diminished in the bases. No rhonchi. No crackles. ABDOMEN: Soft, nontender. LEGS are no edema. No swelling. NERVOUS SYSTEM: No focal deficits. LABS: WBC 5.1, hemoglobin 10.2, sodium is 136. Other labs are noted. UA is cloudy, possible UTI. ASSESSMENT: 1. Change in mental status possible acute metabolic encephalopathy, rule out transient ischemic attack. 2. Possible acute urinary tract infection with possible sepsis present on admission. 3. Mild orthostatic hypotension. 4. Hyponatremia, mild. 5. History of gastroesophageal reflux disease. 6. Hypertension. 7. Hyperlipidemia. 8. History of degenerative joint disease. 9. History of dementia. 10.History of irritable bowel syndrome. 11.History of VRE. 12.History of chronic abdominal pain. 13.History of cholecystectomy. 14.Anxiety, bipolar depression, panic disorder and OCD. 15.FULL CODE. RECOMMENDATIONS AND DISCUSSION: Recommend to continue current medications, and symptomatic treatment. Otherwise, I recommend continue the IV antibiotics. The patient is on aztreonam at this time empirically. Continue to monitor. I would also recommend a neurology evaluation. Sensorium is definitely improved. Dr. Forte will follow. MMODL / IJN: [id number] /
[2020-04-22] MEDS: cloNIDine HCL 0.1 MG TAB PO SCH (20:15)
[2020-04-23] MEDS: HYDROcodone/APAP 10-325MG 1 EACH TAB PO PRN ×2 (02:42→19:01)
[2020-04-23] MEDS: LEVOTHYROXINE 25 MCG TAB PO SCH (06:09)
[2020-04-23] MEDS: SODIUM CHLORIDE 0.9% 1,000 ML IV SCH (08:05)
[2020-04-23] MEDS: AZTREONAM 1 GM in SODIUM CHLORIDE 0.9% 50 ML IVPB SCH ×3 (08:06→23:24)
[2020-04-23] MEDS: LOSARTAN 50 MG TAB PO SCH (08:07)
[2020-04-23] MEDS: ASPIRIN 325 MG TAB PO SCH (08:07)
[2020-04-23] MEDS: PRAVASTATIN SODIUM 40 MG TAB PO SCH (08:07)
[2020-04-23] MEDS: PANTOPRAZOLE 40 MG TABLET PO SCH (08:07)
[2020-04-23] MEDS: amLODIPine 5 MG TAB PO SCH (08:07)
[2020-04-23] MEDS: OLANZapine 2.5 MG TAB PO SCH (08:07)
[2020-04-23] MEDS: FOLIC ACID 1 MG TAB PO SCH (08:08)
[2020-04-23] MEDS: THIAMINE 100 MG TAB PO SCH (08:08)
[2020-04-23] MEDS: MULTIVITAMINS, THERA 1 EACH TAB PO SCH (08:08)
[2020-04-23] MEDS: OXYBUTYNIN 10 MG TAB.ER.24 PO SCH (08:08)
[2020-04-23] MEDS: HEPARIN SODIUM,PORCINE 5,000 UNIT/ML 1 ML VIAL SQ SCH ×2 (08:08→21:12)
--- NOTE | 2020-04-23 12:47 | P.DS ---
Providers Date of admission: 04/21/20 15:38 Expected date of discharge: 04/23/20 Attending physician: Bright Forte MD Consults: 04/23/20 11:22 Consult Physician Routine Consulting Provider: Janae Espinosa Consult Reason/Comments: change in LOC, ?TIA Do you want consulting provider notified?: Yes Primary care physician: Mehnaz Beck Hospital Course: Final Diagnoses: Acute metabolic encephalopathy, possible TIA Doubt acute UTI with sepsis, afebrile, normal WBC, urine culture negative .no further antibiotics at discharge recommended. Mild orthostatic hypotension, present on admission, resolved Mild hyponatremia Gastroesophageal reflux disease Hypertension Hyperlipidemia Degenerative joint disease Dementia, history of, type unknown Anxiety, bipolar depression, panic disorder and OCD Hospital course: Patient was admitted with multiple medical issues, including change in mental status. Received empiric IV antibiotics, gentle IV fluid hydration. Afebrile, normal WBC, urine culture negative. Significant clinical improvement. Patient will be discharged home in a stable condition with guarded prognosis, pending PT/OT/neurology evaluation/clearance/DC recommendations. Microbiology 04/21/20 14:01 Urine,Voided Urine Culture - Final 04/21/20 17:17 Blood Blood Culture - Preliminary No Growth after 24 hours The impression and plan of care has been dictated as directed. : I performed a history and examination of this patient, discussed the same with the dictator. I agree with the dictator's note ,documented as a scribe. Any additional findings or plans will be noted. Patient Condition at Discharge: Stable Plan - Discharge Summary Discharge Rx Participant: No New Discharge Prescriptions: No Action Aspirin EC [Ecotrin] 325 mg PO DAILY OLANZapine [ZyPREXA] 10 mg PO DAILY Levothyroxine Sodium [Synthroid] 25 mcg PO DAILY Potassium Chloride [Klor-Con 10] 10 meq PO BID Cholecalciferol [Vitamin D3 (25 Mcg = 1000 Iu)] 2,000 unit PO DAILY FLUoxetine HCL [PROzac] 60 mg PO DAILY Oxybutynin Chloride [Ditropan XL] 10 mg PO DAILY cloNIDine HCL [Catapres] 0.1 mg PO HS Losartan Potassium 50 mg PO DAILY Fish Oil/Dha/Epa [Fish Oil 1,200 mg Fish Oil] 1 cap PO DAILY OLANZapine [ZyPREXA] 2.5 mg PO DAILY amLODIPine [Norvasc] 5 mg PO DAILY Pravastatin Sodium [Pravachol] 40 mg PO DAILY Baclofen [Lioresal] 10 mg PO BID PRN PRN Reason: Muscle Pain Omeprazole 20 mg PO DAILY metFORMIN HCL [Glucophage] 500 mg PO BID-W/MEALS busPIRone HCL 10 mg PO BID Benztropine Mesylate [Cogentin] 1 mg PO DAILY HYDROcodone/APAP 10-325MG [Cherry 10-325] 1 tab PO BID PRN PRN Reason: Pain Discharge Medication List Aspirin EC [Ecotrin] 325 mg PO DAILY 07/28/16 [History] Levothyroxine Sodium [Synthroid] 25 mcg PO DAILY 02/16/18 [History] OLANZapine [ZyPREXA] 10 mg PO DAILY 02/16/18 [History] Potassium Chloride [Klor-Con 10] 10 meq PO BID 03/11/18 [History] Cholecalciferol [Vitamin D3 (25 Mcg = 1000 Iu)] 2,000 unit PO DAILY 09/19/18 [History] FLUoxetine HCL [PROzac] 60 mg PO DAILY 10/31/18 [History] Oxybutynin Chloride [Ditropan XL] 10 mg PO DAILY 12/14/18 [History] Fish Oil/Dha/Epa [Fish Oil 1,200 mg Fish Oil] 1 cap PO DAILY 01/02/19 [History] Losartan Potassium 50 mg PO DAILY 01/02/19 [History] cloNIDine HCL [Catapres] 0.1 mg PO HS 01/02/19 [History] OLANZapine [ZyPREXA] 2.5 mg PO DAILY 01/17/19 [History] amLODIPine [Norvasc] 5 mg PO DAILY 01/17/19 [History] Baclofen [Lioresal] 10 mg PO BID PRN 09/29/19 [History] Omeprazole 20 mg PO DAILY 09/29/19 [History] Pravastatin Sodium [Pravachol] 40 mg PO DAILY 09/29/19 [History] busPIRone HCL 10 mg PO BID 11/09/19 [History] metFORMIN HCL [Glucophage] 500 mg PO BID-W/MEALS 11/09/19 [History] Benztropine Mesylate [Cogentin] 1 mg PO DAILY 04/21/20 [History] HYDROcodone/APAP 10-325MG [Cherry 10-325] 1 tab PO BID PRN 08/15/20 [History] Follow up Appointment(s)/Referral(s): Bright Forte MD [STAFF PHYSICIAN] - 04/27/20 10:30 am () Activity/Diet/Wound Care/Special Instructions: No smoking
--- NOTE | 2020-04-23 21:06 | P.CNNES ---
History of Present Illness Consult date: 04/23/20 Requesting physician: Thuy Thakur Reason for Consult: Change in LOC, ?TIA History of Present Illness: Patient is a 74-year-old female who came to the hospital with worsening confusion. Patient apparently has some issues with confusion over the past several months. She is following with her doctor regarding possible dementia. On the morning of admission, 04/21/2020, her son attempted to wake her up, and she was quite difficult to wake and was confused. She did not know where she was or who she was with. No vomiting or fever. No focal weakness or numbness. This prompted admission to the hospital. Patient denies any slurred speech, facial droop, problem with the vision, double vision, focal numbness, tingling or weakness, or any strokelike symptoms. Patient does have chronic back issues. Patient's daughter has noticed that she will be talking and forgetting in middle of the sentence what she was talking about. While in the hospital, patient's daughter was talking to her about news. Patient suddenly started talking about something else altogether. She started talking about arrow on the side of the bed, stating that the up arrow belongs to the bowl she was holding. Then she would forget what she was talking about. Patient also has been complaining of dry mouth, and shaky. Patient underwent CT head, which showed cerebral atrophy. No acute intracranial abnormality. EKG shows sinus bradycardia, low voltage QRS. Patient had a recent MRI of brain with and without contrast on 03/10/2020, which revealed mild atrophy appropriate for age. Otherwise negative exam. Patient's previous MRI of the lumbar spine from 12/31/2017 showed degenerative disc disease, postop changes, facet arthropathy, spinal stenosis greatest at L3 4 contributed by listhesis. Scoliosis. Cystic foci associated with the kidneys. Patient's blood test shows normal CBC, sodium 136 potassium 3.9, renal functions normal. PT/PTT normal. UA showed 40 to WBCs, 3 RBC, urine culture showed skin or genital zoë. Blood cultures negative. Patient's thyroid functions are normal 03/01/2020. Hemoglobin A1c 6.0 on 03/01/2020, total cholesterol 127, LDL 47, HDL 62 and triglycerides 88. Patient does take aspirin 325 mg daily and Pravachol 40 mg daily. Patient has diabetes well controlled on metformin. I spoke to patient's daughter on the phone. Patient apparently is taking fairly high doses of multiple psychoactive medications. She is on fluoxetine 20 mg 3 times a day, Duarte 10 mg twice a day, BuSpar 10 mg twice a day, baclofen 10 mg twice a day, olanzapine 10 mg every day, and also 2.5 mg every day. Patient tells me that the dose of (Olanzapine) Zyprexa was cut back to 5 mg daily recent ly. Also on oxybutynin 10 mg daily, vitamin D 2000 units daily and clonidine 0.1 mg daily. Review of Systems As mentioned above in detail. All other 14 point review of systems unremarkable. Past Medical History Past Medical History: GERD/Reflux, Hyperlipidemia, Hypertension, Osteoarthritis (OA), Thyroid Disorder Additional Past Medical History / Comment(s): IBS, chronic abd pain, History of Any Multi-Drug Resistant Organisms: VRE Date of last positivie culture/infection: 01/17/19 MDRO Source:: urine Past Surgical History: Cholecystectomy, Hernia Repair, Tonsillectomy, Tubal Ligation Additional Past Surgical History / Comment(s): lap band, Past Anesthesia/Blood Transfusion Reactions: No Reported Reaction Additional Past Anesthesia/Blood Transfusion Reaction / Comment(s): No blood transfusion to date Past Psychological History: Anxiety, Bipolar, Depression, Panic Disorder Additional Psychological History / Comment(s): OCD Smoking Status: Never smoker Past Alcohol Use History: None Reported Additional Past Alcohol Use History / Comment(s): STARTED SMOKING AT AGE 18 DOWN TO 1/2 PPD Past Drug Use History: None Reported Additional Drug Use History / Comment(s): 1/2 pack /day x 50 years (off and on) - Past Family History Father Family Medical History: Cancer Additional Family Medical History / Comment(s): Prostate and bone cancer Mother Family Medical History: Dementia Medications and Allergies Home Medications Medication Instructions Recorded Confirmed Type Aspirin EC [Ecotrin] 325 mg PO DAILY 07/28/16 04/21/20 History Levothyroxine Sodium [Synthroid] 25 mcg PO DAILY 02/16/18 04/21/20 History OLANZapine [ZyPREXA] 10 mg PO DAILY 02/16/18 04/21/20 History Potassium Chloride [Klor-Con 10] 10 meq PO BID 03/11/18 04/21/20 History Cholecalciferol [Vitamin D3 (25 2,000 unit PO DAILY 09/19/18 04/21/20 History Mcg = 1000 Iu)] FLUoxetine HCL [PROzac] 60 mg PO DAILY 10/31/18 04/21/20 History Oxybutynin Chloride [Ditropan XL] 10 mg PO DAILY 12/14/18 04/21/20 History Fish Oil/Dha/Epa [Fish Oil 1,200 1 cap PO DAILY 01/02/19 04/21/20 History mg Fish Oil] Losartan Potassium 50 mg PO DAILY 01/02/19 04/21/20 History cloNIDine HCL [Catapres] 0.1 mg PO HS 01/02/19 04/21/20 History OLANZapine [ZyPREXA] 2.5 mg PO DAILY 01/17/19 04/21/20 History amLODIPine [Norvasc] 5 mg PO DAILY 01/17/19 04/21/20 History Baclofen [Lioresal] 10 mg PO BID PRN 09/29/19 04/21/20 History Omeprazole 20 mg PO DAILY 09/29/19 04/21/20 History Pravastatin Sodium [Pravachol] 40 mg PO DAILY 09/29/19 04/21/20 History busPIRone HCL 10 mg PO BID 11/09/19 04/21/20 History metFORMIN HCL [Glucophage] 500 mg PO BID-W/MEALS 11/09/19 04/21/20 History Benztropine Mesylate [Cogentin] 1 mg PO DAILY 04/21/20 04/21/20 History HYDROcodone/APAP 10-325MG [Duarte 1 tab PO BID PRN 04/21/20 04/21/20 History 10-325] Allergies Allergy/AdvReac Type Severity Reaction Status Date / Time ciprofloxacin [From Cipro] Allergy Severe Itching Verified 04/21/20 18:58 amoxicillin Allergy Unknown Verified 04/21/20 18:58 cefuroxime Allergy Itching Verified 04/21/20 18:58 clindamycin Allergy Unknown Verified 04/21/20 18:58 metronidazole Allergy Unknown Verified 04/21/20 18:58 Physical Examination - Vital Signs Vital Signs: Vital Signs Temp Pulse Pulse Pulse Pulse Resp BP 04/23/20 15:21 62 17 04/23/20 12:17 97.9 F 58 L 58 L 55 L 17 104/63 04/23/20 08:00 60 18 04/23/20 05:00 97.7 F 52 L 18 04/22/20 21:00 98.0 F 56 L 18 BP BP Pulse Ox 04/23/20 15:21 04/23/20 12:17 109/63 122/68 96 04/23/20 08:00 04/23/20 05:00 111/64 95 04/22/20 21:00 125/71 95 Intake and Output 04/23/20 04/23/20 04/23/20 06:59 14:59 22:59 Intake Total 200 1180 Balance 200 1180 Intake: Intake, IV Titration 100 Amount Aztreonam 1 gm In Sodium 100 Chloride 0.9% 50 ml @ 16. 67 mls/hr IVPB Q8HR COUNT INCLUDES THE [facility] Rx#:[id number] Oral 200 1080 Other: Voiding Method Toilet Toilet Toilet # Voids 2 4 4 On examination patient is an elderly female, in no acute distress. Patient is alert and awake fully oriented. Patient knows it is April 2020 and that it is summer. She knows that she is in [facility] and name of the current president. Patient has negative visuospatial apraxia, negative palmomental reflex. She does have dry mouth it appears. Speech and language functions are normal. No aphasia or dysarthria. Patient does forget in middle of the sentence what she was talking about. On cranial nerve examination pupils are round and reactive to light, visual chen are full on confrontation, extraocular muscles are intact with no nystagmus. Face is symmet cristofer, tongue protrudes to the midline. Palatal elevation and sensation normal. Hearing and shoulder shrug normal. On muscle strength testing there is no pronator drift and the strength is normal in arms and legs distally and proximally. Reflexes are 1+ and plantars downgoing. Sensory touch is equal. No ataxia for [id number] testing. Tone and bulk of muscles normal. There is no bruit heard on either side. S1 and S2 audible. Chest is clear, abdomen soft and nontender. Results - Laboratory Findings CBC and BMP: 04/22/20 08:38 04/22/20 08:38 Abnormal Lab Findings: Abnormal Labs 04/21/20 04/21/20 04/21/20 14:01 14:01 14:01 Hgb 11.0 L MCHC Sodium 136 L Glucose 116 H POC Glucose (mg/dL) Total Protein 5.8 L Albumin 3.4 L Urine Appearance Cloudy H Urine WBC 42 H Ur Squamous Epith Cells 21 H Hyaline Casts 6 H Urine Mucus Rare H 04/21/20 04/22/20 04/22/20 14:11 08:38 08:38 Hgb 10.8 L MCHC 30.1 L Sodium 136 L Glucose 155 H POC Glucose (mg/dL) 100 H Total Protein Albumin Urine Appearance Urine WBC Ur Squamous Epith Cells Hyaline Casts Urine Mucus Assessment and Plan Assessment: * Altered mental status, with forgetfulness, probably due to medication side effects. Patient is on numerous psychoactive medication, some of them have anticholinergic side effects including olanzapine, perhaps BuSpar. Also on Prozac, oxybutynin Duarte, baclofen and clonidine. * Chronic low back pain. Plan: * I do not see any definitive evidence of dementia. Suspect medication side effect. * Patient and her daughter were recommended to follow up with her primary physician, to reassess all medications and reduce doses if possible. If her memory functions continue to be an issue, then may follow up with neurologist locally as an outpatient, to rule out any underlying cognitive impairment. At present her dose of Zyprexa has been decreased to 2.5 mg daily. * We will check carotid Doppler to rule out carotid stenosis. * We will check B12, folate. * PT OT * Neurologically otherwise clear.
[2020-04-23] MEDS: cloNIDine HCL 0.1 MG TAB PO SCH (21:12)
--- NOTE | 2020-04-23 22:15 | US ---
EXAMINATION TYPE: US carotid duplex BILAT DATE OF EXAM: 04/23/2020 COMPARISON: NONE CLINICAL HISTORY: Speech difficulty, rule out TIA. Memory loss, speech difficulty EXAM MEASUREMENTS: RIGHT: Peak Systolic Velocity (PSV) cm/sec ----- Right CCA: 68.6 ----- Right ICA: 88.6 ----- Right ECA: 87.5 ICA/CCA ratio: 1.3 RIGHT: End Diastole cm/sec ----- Right CCA: 12.7 ----- Right ICA: 16.0 ----- Right ECA: 0.0 LEFT: Peak Systolic Velocity (PSV) cm/sec ----- Left CCA: 70.0 ----- Left ICA: 141.5 ----- Left ECA: 127.0 ICA/CCA ratio: 2.0 LEFT: End Diastole cm/sec ----- Left CCA: 13.9 ----- Left ICA: 26.8 ----- Left ECA: 0.0 VERTEBRALS (direction of flow): Right Vertebral: Antegrade Left Vertebral: Antegrade Rhythm: Normal Slightly higher velocities within left ICA and ECA, otherwise no significant stenosis visualized IMPRESSION: There is antegrade flow in the vertebral arteries. The images and measurements suggest 50-70% stenosi s in the left internal carotid artery and 35% stenosis in the right internal carotid artery. Criteria for Assigning % of Stenosis / Diameter reduction (Estimation based on the indirect measurements of the internal carotid artery velocities (ICA PSV). 1. Normal (no stenosis)=ICA PSV < 125 cm/s: ratio < 2.0: ICA EDV<40 cm/s. 2. Less than 50% stenosis=ICA PSV < 125 cm/s: ratio < 2.0: ICA EDV<40 cm/s. 3. 50 to 69% stenosis=ICA PSV of 125 to 230 cm/s: ration 2.0 ? 4.0: ICA EDV 40-100 cm/s. 4. Greater than 70% stenosis to near occlusion= ICA PSV > 230 cm/s: ratio > 4.0: ICA EDV > 100 cm/s. 5. Near occlusion= ICA PSV velocities may be low or undetectable: variable ratio and ICA EDV. 6. Total occlusion=unable to detect flow.
[2020-04-23 22:33] VITALS: RESP 18
[2020-04-24] MEDS: SODIUM CHLORIDE 0.9% 1,000 ML IV SCH ×2 (04:30→07:30)
[2020-04-24] MEDS: LEVOTHYROXINE 25 MCG TAB PO SCH (05:13)
[2020-04-24 06:46] LABS: Folate, Serum 11.6 ng/mL
[2020-04-24] MEDS: AZTREONAM 1 GM in SODIUM CHLORIDE 0.9% 50 ML IVPB SCH ×2 (07:22→15:10)
[2020-04-24] MEDS: HYDROcodone/APAP 10-325MG 1 EACH TAB PO PRN (07:27)
[2020-04-24] MEDS: THIAMINE 100 MG TAB PO SCH (07:28)
[2020-04-24] MEDS: PRAVASTATIN SODIUM 40 MG TAB PO SCH (07:28)
[2020-04-24] MEDS: ASPIRIN 325 MG TAB PO SCH (07:29)
[2020-04-24] MEDS: LOSARTAN 50 MG TAB PO SCH (07:29)
[2020-04-24] MEDS: OLANZapine 2.5 MG TAB PO SCH (07:29)
[2020-04-24] MEDS: amLODIPine 5 MG TAB PO SCH (07:29)
[2020-04-24] MEDS: MULTIVITAMINS, THERA 1 EACH TAB PO SCH (07:29)
[2020-04-24] MEDS: HEPARIN SODIUM,PORCINE 5,000 UNIT/ML 1 ML VIAL SQ SCH (07:29)
[2020-04-24] MEDS: OXYBUTYNIN 10 MG TAB.ER.24 PO SCH (07:29)
[2020-04-24] MEDS: FOLIC ACID 1 MG TAB PO SCH (07:29)
[2020-04-24] MEDS: PANTOPRAZOLE 40 MG TABLET PO SCH (07:29)
[2020-04-24 12:05] VITALS: BP 129/59; TEMP 98
--- NOTE | 2020-04-24 15:23 | P.GSCN ---
History of Present Illness Consult date: 04/24/20 Reason for Consult: Internal carotid artery stenosis History of present illness: This is a 74-year-old female who came to the hospital with worsening confusion. The patient states she's been confused for some time however still seems somewhat confused at this time of interview. The patient has been following with her primary care physician who has been working her up for dementia. During admission on Thursday it was reported that her son was having difficulty waking her up, and once he was able to she seemed more confused than usual. At that time the patient denies she had any focal deficits. She denies currently that she has any shortness of breath, chest pain, visual disturbances, difficulty with speech or swallowing, upper or lower extremity weakness. Patient states she's been more forgetful. Patient underwent a CT of the head which showed cerebral atrophy. No acute intracranial abnormality. The patient has also had a recent MRI of the brain with and without contrast on 03/10/2020 which revealed mild atrophy appropriate for age. Otherwise negative exam. Neurology has been on consult for this patient and feels that the confusion is likely related to her multiple psychoactive medication, some including anticholinergic side effects that include an include olanzapine, Buspar, prozac, norco, baclofen and clonidine. She is alert and oriented 3 at this time. Patient can't state that she hasn't [facility], that the year is 2019, the month is April, and can state her birthdate. Review of Systems 14 point review of systems was completed all pertinent positives and negatives as stated in the HPI Past Medical History Past Medical History: GERD/Reflux, Hyperlipidemia, Hypertension, Osteoarthritis (OA), Thyroid Disorder Additional Past Medical History / Comment(s): IBS, chronic abd pain, History of Any Multi-Drug Resistant Organisms: VRE Year Discovered:: 01/17/19 MDRO Source:: urine Past Surgical History: Cholecystectomy, Hernia Repair, Tonsillectomy, Tubal Ligation Additional Past Surgical History / Comment(s): lap band, Past Anesthesia/Blood Transfusion Reactions: No Reported Reaction Additional Past Anesthesia/Blood Transfusion Reaction / Comm: No blood transfusion to date Past Psychological History: Anxiety, Bipolar, Depression, Panic Disorder Additional Psychological History / Comment(s): OCD Smoking Status: Never smoker Past Alcohol Use History: None Reported Additional Past Alcohol Use History / Comment(s): STARTED SMOKING AT AGE 18 DOWN TO 1/2 PPD Past Drug Use History: None Reported Additional Drug Use History / Comment(s): 1/2 pack /day x 50 years (off and on) - Past Family History Father Family Medical History: Cancer Additional Family Medical History / Comment(s): Prostate and bone cancer Mother Family Medical History: Dementia Medications and Allergies Home Medications Medication Instructions Recorded Confirmed Type Aspirin EC [Ecotrin] 325 mg PO DAILY 07/28/16 04/21/20 History Levothyroxine Sodium [Synthroid] 25 mcg PO DAILY 02/16/18 04/21/20 History Potassium Chloride [Klor-Con 10] 10 meq PO BID 03/11/18 04/21/20 History Cholecalciferol [Vitamin D3 (25 2,000 unit PO DAILY 09/19/18 04/21/20 History Mcg = 1000 Iu)] FLUoxetine HCL [PROzac] 60 mg PO DAILY 10/31/18 04/21/20 History Oxybutynin Chloride [Ditropan XL] 10 mg PO DAILY 12/14/18 04/21/20 History Fish Oil/Dha/Epa [Fish Oil 1,200 1 cap PO DAILY 01/02/19 04/21/20 History mg Fish Oil] Losartan Potassium 50 mg PO DAILY 01/02/19 04/21/20 History cloNIDine HCL [Catapres] 0.1 mg PO HS 01/02/19 04/21/20 History OLANZapine [ZyPREXA] 2.5 mg PO DAILY 01/17/19 04/21/20 History amLODIPine [Norvasc] 5 mg PO DAILY 01/17/19 04/21/20 History Baclofen [Lioresal] 10 mg PO BID PRN 09/29/19 04/21/20 History Omeprazole 20 mg PO DAILY 09/29/19 04/21/20 History Pravastatin Sodium [Pravachol] 40 mg PO DAILY 09/29/19 04/21/20 History busPIRone HCL 10 mg PO BID 11/09/19 04/21/20 History metFORMIN HCL [Glucophage] 500 mg PO BID-W/MEALS 11/09/19 04/21/20 History Benztropine Mesylate [Cogentin] 1 mg PO DAILY 04/21/20 04/21/20 History HYDROcodone/APAP 10-325MG [[place] 1 tab PO BID PRN 04/21/20 04/21/20 History 10-325] Allergies Allergy/AdvReac Type Severity Reaction Status Date / Time ciprofloxacin [From Cipro] Allergy Severe Itching Verified 04/21/20 18:58 amoxicillin Allergy Unknown Verified 04/21/20 18:58 cefuroxime Allergy Itching Verified 04/21/20 18:58 clindamycin Allergy Unknown Verified 04/21/20 18:58 metronidazole Allergy Unknown Verified 04/21/20 18:58 Surgical - Exam Vital Signs Temp Pulse Resp BP Pulse Ox 98.5 F 67 18 139/76 96 04/21/20 13:22 04/21/20 13:22 04/21/20 13:22 04/21/20 13:22 04/21/20 13:22 General appearance: The patient is alert, oriented, in no acute distress. HET: Head is normocephalic and atraumatic. Pupils are equal and reactive. Neck: Supple without lymphadenopathy. Trachea midline. No audible carotid bruit bilaterally. Heart: S1 S2. Regular rate and rhythm. Lungs: No crackles or wheezes are heard. Abdomen: Soft, nontender, nondistended with bowel sounds. Extremities: Normal skin color and turgor. No cyanosis, rash, ulceration, clubbing, or edema. Radial and pedal pulses are 2/4 bilaterally. Neurological: No focal deficits. Strength and sensation are grossly intact. Speech is fluent, tongue protrudes midline, cranial nerves II through XII intact. Normal strength and tone bilateral upper and lower extremities. Results CT brain shows the prevertebral atrophy, no acute intracranial abnormality, no adverse change compared to old exam. Carotid duplex ultrasound shows the right ICA 88.6 and left ICA 141.5. There is antegrade flow in the vertebral arteries. The images and measurement suggests 50-70% stenosis in the left internal carotid artery and 35 stenosis in the right internal carotid artery. - Labs 04/22/20 08:38 04/22/20 08:38 Microbiology - Last 24 Hours (Table) 04/21/20 17:17 Blood Culture - Preliminary Blood No Growth after 48 hours Assessment and Plan Assessment: 1. Altered mental status changes with forgetfulness 2. Internal carotid artery stenosis greater on left than right 3. Hypertension 4. Hyperlipidemia 5. Thyroid disorder Plan: CT of the brain reviewed with no acute findings. Patient's altered mental status is likely related to medication side effects. Carotid duplex ultrasound demonstrates left internal carotid stenosis approximately 50-70% stenosis and 35 % stenosis in the right internal carotid artery. There is no indication for vascular surgical intervention at this time. Patient can follow-up with Dr. Dye after discharge. Further recommendations to follow. Thank you for this consultation allowing us take part in the plan of care of your patient during her hospital stay. The above dictated assessment and findings were discussed with Dr. Dye. The impression and plan of care have been directed as dictated.
[2020-04-24 15:39] VITALS: PULSE 61
--- NOTE | 2020-04-24 18:06 | P.PN ---
Subjective Progress Note Date: 04/24/20 Patient states she is feeling slightly better. I spoke to patient's daughter Lakisha, who feels patient has much improved. Patient able to speak in complete sentences. She is not forgetting in the middle of the sentence. Denies any focal symptoms. Objective - Vital Signs Vital signs: Vital Signs Temp 98 F 04/24/20 11:39 Pulse 61 04/24/20 15:34 Resp 18 04/24/20 15:34 BP 129/59 04/24/20 11:39 Pulse Ox 98 04/24/20 11:39 Intake & Output 04/23/20 04/24/20 04/24/20 18:59 06:59 18:59 Intake Total 6863 719 0466 Balance 7023 786 1892 Intake: Intake, IV Titration 100 650 Amount Aztreonam 1 gm In Sodium 100 50 Chloride 0.9% 50 ml @ 16. 67 mls/hr IVPB Q8HR [facility] Rx#:[id number] Sodium Chloride 0.9% 1, 600 000 ml @ 75 mls/hr IV . [id number] SHERINE Rx#:[id number] Oral 1080 550 720 Other: Voiding Method Toilet Toilet Toilet # Voids 4 2 4 - Exam Patient's speech has improved in the sense that she is able to talk in complete sentences, without forgetting in the middle of the sentence. Patient able to remember what she ate for breakfast, what she ate for lunch. She remembers which doctors visited her today. Patient also rested and slept well last night. Denies any focal numbness tingling. Denies diplopia or loss of vision. Muscle strength is normal. Patient's mouth is very dry. After she drinks a sip of water, her speech appears normal. Otherwise appears slight slurring. - Labs CBC & Chem 7: 04/22/20 08:38 04/22/20 08:38 Labs: Microbiology - Last 24 Hours (Table) 04/21/20 17:17 Blood Culture - Preliminary Blood No Growth after 48 hours Assessment and Plan Assessment: * Altered mental status, with forgetfulness, probably due to medication side effects. Patient is on numerous psychoactive medication, some of them have anticholinergic side effects including olanzapine, perhaps BuSpar. Also on Prozac, oxybutynin [place], baclofen and clonidine. * Chronic low back pain. * Tobacco use half pack per day off and on for 50 years Plan: * Patient's mentation has improved since her dose of olanzapine has been decreased to 2.5 mg daily. Apparently patient not on fluoxetine in the hospital. May slowly wean down fluoxetine from 60 down to 40 mg. * Carotid Doppler showed 50-70% stenosis left ICA, 35% stenosis right ICA. Ante grade flow in both vertebral arteries. * Vascular surgical consultation input appreciated. Patient to follow up with vascular surgery as outpatient. * B12 570, folate 11.6. * Cholesterol 127, LDL 47.4. Hemoglobin A1c 6.0. Patient's blood pressure is well-controlled 129/59. * Patient smokes tobacco half pack per day. She was recommended to stop tobacco use, which is a major stroke risk factor, especially given moderate carotid stenosis on the left side. * Patient will be continued on aspirin 325 mg daily and statins. Consider switching to Plavix, if patient has any focal symptoms. * Neurologically clear for discharge.
== END 2020-04-24 18:42 | disposition home or self-care (01) ==
LOC: EC 13:19 → 5NMEDONC 15:38
PROVIDERS: ADMIT Family Medicine; ATTEND Family Medicine
DX: G93.40 Encephalopathy, unspecified (principal); E07.9 Disorder of thyroid, unspecified; E11.9 Type 2 diabetes mellitus without complications; E78.5 Hyperlipidemia, unspecified; E87.1 Hypo-osmolality and hyponatremia; F31.30 Bipolar disorder, current episode depressed, mild or moderate severity, unspecified; F41.0 Panic disorder [episodic paroxysmal anxiety]; F42.9 Obsessive-compulsive disorder, unspecified; G89.29 Other chronic pain; I10 Essential (primary) hypertension; I65.29 Occlusion and stenosis of unspecified carotid artery; I95.1 Orthostatic hypotension; K21.9 Gastro-esophageal reflux disease without esophagitis; M19.90 Unspecified osteoarthritis, unspecified site; M41.9 Scoliosis, unspecified; Z79.82 Long term (current) use of aspirin; Z79.84 Long term (current) use of oral hypoglycemic drugs; Z79.890 Hormone replacement therapy; Z79.899 Other long term (current) drug therapy; Z90.49 Acquired absence of other specified parts of digestive tract; Z88.1 Allergy status to other antibiotic agents; K58.9 Irritable bowel syndrome, unspecified; R10.9 Unspecified abdominal pain; Z86.19 Personal history of other infectious and parasitic diseases; F17.210 Nicotine dependence, cigarettes, uncomplicated; Z80.42 Family history of malignant neoplasm of prostate; Z80.8 Family history of malignant neoplasm of other organs or systems; M54.5 Low back pain; Z71.6 Tobacco abuse counseling
CPT/HCPCS: 96361 ×2; 96365; 96366 ×3; 96372 ×4; 99285; 36415; 93005; 97162; 97166; 80053; 80048; 82607; 82746; 85025 ×2; 85610; 85730; 81001; 87040; 87086; 93880; 70450; G0378 ×4; J1644 ×4

== ENCOUNTER 2020-04-29 10:36 | Emergency (ER) | payer MEDICARE ==
[2020-04-29] MEDS ORDERED: SODIUM CHLORIDE 0.9% 1,000 ML IV ONE (11:10)
[2020-04-29 11:25] LABS: Glucose,Whole Blood 124 mg/dL (75-99)
--- NOTE | 2020-04-29 11:48 | ED ---
General Adult HPI - General Source: patient, RN notes reviewed Mode of arrival: ambulatory Limitations: no limitations <Tyson De Los Santos - Last Filed: 04/29/20 14:00> <Apolinar Donovan - Last Filed: 04/29/20 14:24> - General Chief complaint: Psychiatric Symptoms Stated complaint: altered Time Seen by Provider: 04/29/20 10:55 - History of Present Illness Initial comments: 74-year-old female presents emergency Department chief complaint of confusion. Patient had sports of confusion over the last several weeks. Patient was admitted recently for similar complaints. Daughter in the room states that symptoms were improving and she was discharged to did change her medications in which they felt were causing her symptoms. Daughter states that now she is very paranoid she has been up all night was not sleeping. Still has some fusion which comes and goes. No recent fever or chills she does have a cough which is chronic in nature related to her smoking. She has no current abdominal pain including diarrhea, constipation, melena or hematochezia. She does complain of mild dysuria. (Tyson De Los Santos) - Related Data Home Medications Medication Instructions Recorded Confirmed Aspirin EC [Ecotrin] 325 mg PO DAILY 07/28/16 04/29/20 Levothyroxine Sodium [Synthroid] 25 mcg PO DAILY 02/16/18 04/29/20 Potassium Chloride [Klor-Con 10] 10 meq PO BID 03/11/18 04/29/20 Cholecalciferol [Vitamin D3 (25 2,000 unit PO DAILY 09/19/18 04/29/20 Mcg = 1000 Iu)] FLUoxetine HCL [PROzac] 60 mg PO DAILY 10/31/18 04/29/20 Fish Oil/Dha/Epa [Fish Oil 1,200 1 cap PO DAILY 01/02/19 04/29/20 mg Fish Oil] Losartan Potassium 50 mg PO DAILY 01/02/19 04/29/20 OLANZapine [ZyPREXA] 2.5 mg PO HS 01/17/19 04/29/20 Omeprazole 20 mg PO DAILY 09/29/19 04/29/20 Pravastatin Sodium [Pravachol] 40 mg PO DAILY 09/29/19 04/29/20 busPIRone HCL 10 mg PO BID 11/09/19 04/29/20 Benztropine Mesylate [Cogentin] 1 mg PO DAILY 04/21/20 04/29/20 HYDROcodone/APAP 10-325MG [[place] 1 tab PO BID PRN 04/21/20 04/29/20 10-325] Loperamide [Imodium] 2 mg PO QID PRN 04/29/20 04/29/20 Allergies Allergy/AdvReac Type Severity Reaction Status Date / Time ciprofloxacin [From Cipro] Allergy Severe Itching Verified 04/29/20 13:07 amoxicillin Allergy Unknown Verified 04/29/20 13:07 cefuroxime Allergy Itching Verified 04/29/20 13:07 clindamycin Allergy Unknown Verified 04/29/20 13:07 metronidazole Allergy Unknown Verified 04/29/20 13:07 Review of Systems ROS Other: All systems not noted in ROS Statement are negative. <Tyson De Los Santos - Last Filed: 04/29/20 14:00> ROS Other: All systems not noted in ROS Statement are negative. <Apolinar Donovan - Last Filed: 04/29/20 14:24> ROS Statement: Those systems with pertinent positive or pertinent negative responses have been documented in the HPI. Past Medical History Past Medical History: GERD/Reflux, Hyperlipidemia, Hypertension, Osteoarthritis (OA), Thyroid Disorder Additional Past Medical History / Comment(s): IBS, chronic abd pain, History of Any Multi-Drug Resistant Organisms: VRE Date of last positivie culture/infection: 01/17/19 MDRO Source:: urine Past Surgical History: Cholecystectomy, Hernia Repair, Tonsillectomy, Tubal Ligation Additional Past Surgical History / Comment(s): lap band, Past Anesthesia/Blood Transfusion Reactions: No Reported Reaction Additional Past Anesthesia/Blood Transfusion Reaction / Comment(s): No blood transfusion to date Past Psychological History: Anxiety, Bipolar, Depression, Panic Disorder Smoking Status: Never smoker Past Alcohol Use History: None Reported Past Drug Use History: None Reported - Past Family History Father Family Medical History: Cancer Additional Family Medical History / Comment(s): Prostate and bone cancer Mother Family Medical History: Dementia <Tyson De Los Santos - Last Filed: 04/29/20 14:00> General Exam Limitations: no limitations General appearance: alert, in no apparent distress Head exam: Present: atraumatic, normocephalic, normal inspection Eye exam: Present: normal appearance, PERRL, EOMI. Absent: scleral icterus, conjunctival injection, periorbital swelling ENT exam: Present: normal exam, normal oropharynx, mucous membranes moist Neck exam: Present: normal inspection, full ROM. Absent: tenderness, meningismus, lymphadenopathy Respiratory exam: Present: normal lung sounds bilaterally. Absent: respiratory distress, wheezes, rales, rhonchi, stridor Cardiovascular Exam: Present: regular rate, normal rhythm, normal heart sounds. Absent: systolic murmur, diastolic murmur, rubs, gallop, clicks Neurological exam: Present: alert, oriented X3, CN II-XII intact Psychiatric exam: Present: anxious, manic <Tyson De Los Santos - Last Filed: 04/29/20 14:00> Course Vital Signs 04/29/20 10:38 Temperature 97.9 F Pulse Rate 72 Respiratory 18 Rate Blood Pressure 187/80 O2 Sat by Pulse 97 Oximetry EKG Findings - EKG Comments: EKG Findings:: EKG performed at 12:10 normal sinus rhythm rate of 78 SD 174 QRS 92 QT/QTC 416/449 <Tyson De Los Santos - Last Filed: 04/29/20 14:00> Medical Decision Making - Lab Data Result diagrams: 04/29/20 11:15 04/29/20 11:15 <Tyson De Los Santos - Last Filed: 04/29/20 14:00> - Lab Data Result diagrams: 04/29/20 11:15 04/29/20 11:15 - Radiology Data Radiology results: image reviewed (Chest x-ray shows chronic problem) <Apolinar Donovan - Last Filed: 04/29/20 14:24> - Medical Decision Making Patient seen by mental health services with plan for discharge. Advised to consider follow-up with [facility] for possible geriatric psychiatric evaluation in the future. Patient is resting comfortably in bed. Patient reexamined and reevaluated by myself, Dr. Donovan. I agree with PA findings. This includes diagnostic interpretation and treatment plan. Patient and daughter are both comfortable with discharge home. Daughter does request Xanax that patient has previously had secondary to patient being anxious. (Apolinar Donovan) - Lab Data Lab Results 04/29/20 04/29/20 04/29/20 Range/Units 11:15 11:15 11:15 WBC 5.8 (3.8-10.6) k/uL RBC 4.18 (3.80-5.40) m/uL Hgb 11.6 (11.4-16.0) gm/dL Hct 35.8 (34.0-46.0) % MCV 85.8 (80.0-100.0) fL MCH 27.8 (25.0-35.0) pg MCHC 32.4 (31.0-37.0) g/dL RDW 15.5 (11.5-15.5) % Plt Count 215 (150-450) k/uL Neutrophils % 58 % Lymphocytes % 32 % Monocytes % 6 % Eosinophils % 0 % Basophils % 1 % Neutrophils # 3.4 (1.3-7.7) k/uL Lymphocytes # 1.9 (1.0-4.8) k/uL Monocytes # 0.4 (0-1.0) k/uL Eosinophils # 0.0 (0-0.7) k/uL Basophils # 0.0 (0-0.2) k/uL PT 9.7 (9.0-12.0) sec INR 0.9 (<1.2) APTT 20.6 L (22.0-30.0) sec Sodium (137-145) mmol/L Potassium (3.5-5.1) mmol/L Chloride (98-107) mmol/L Carbon Dioxide (22-30) mmol/L Anion Gap mmol/L BUN (7-17) mg/dL Creatinine (0.52-1.04) mg/dL Est GFR (CKD-EPI)AfAm (>60 ml/min/1.73 sqM) Est GFR (CKD-EPI)NonAf (>60 ml/min/1.73 sqM) Glucose (74-99) mg/dL POC Glucose (mg/dL) (75-99) mg/dL POC Glu Puller Over ID Calcium (8.4-10.2) mg/dL Total Bilirubin (0.2-1.3) mg/dL AST (14-36) U/L ALT (4-34) U/L Alkaline Phosphatase (38-126) U/L Ammonia (<30) umol/L Creatine Kinase (30-135) U/L Troponin I (0.000-0.034) ng/mL Total Protein (6.3-8.2) g/dL Albumin (3.5-5.0) g/dL Urine Color Yellow Urine Appearance Clear (Clear) Urine pH 6.5 (5.0-8.0) Ur Specific [place] 1.010 (1.001-1.035) Urine Protein Negative (Negative) Urine Glucose (UA) Negative (Negative) Urine Ketones Trace H (Negative) Urine Blood Negative (Negative) Urine Nitrite Negative (Negative) Urine Bilirubin Negative (Negative) Urine Urobilinogen <2.0 (<2.0) mg/dL Ur Leukocyte Esterase Negative (Negative) Urine Opiates Screen Detected H (NotDetected) Ur Oxycodone Screen Not Detected (NotDetected) Urine Methadone Screen Not Detected (NotDetected) Ur Propoxyphene Screen Not Detected (NotDetected) Ur Barbiturates Screen Not Detected (NotDetected) U Tricyclic Antidepress Not Detected (NotDetected) Ur Phencyclidine Scrn Not Detected (NotDetected) Ur Amphetamines Screen Not Detected (NotDetected) U Methamphetamines Scrn Not Detected (NotDetected) U Benzodiazepines Scrn Detected H (NotDetected) Urine Cocaine Screen Not Detected (NotDetected) U Marijuana (THC) Screen Not Detected (NotDetected) 04/29/20 04/29/20 04/29/20 Range/Units 11:15 11:15 11:15 WBC (3.8-10.6) k/uL RBC (3.80-5.40) m/uL Hgb (11.4-16.0) gm/dL Hct (34.0-46.0) % MCV (80.0-100.0) fL MCH (25.0-35.0) pg MCHC (31.0-37.0) g/dL RDW (11.5-15.5) % Plt Count (150-450) k/uL Neutrophils % % Lymphocytes % % Monocytes % % Eosinophils % % Basophils % % Neutrophils # (1.3-7.7) k/uL Lymphocytes # (1.0-4.8) k/uL Monocytes # (0-1.0) k/uL Eosinophils # (0-0.7) k/uL Basophils # (0-0.2) k/uL PT (9.0-12.0) sec INR (<1.2) APTT (22.0-30.0) sec Sodium 137 (137-145) mmol/L Potassium 4.1 (3.5-5.1) mmol/L Chloride 105 (98-107) mmol/L Carbon Dioxide 24 (22-30) mmol/L Anion Gap 8 mmol/L BUN 6 L (7-17) mg/dL Creatinine 0.76 (0.52-1.04) mg/dL Est GFR (CKD-EPI)AfAm 89 (>60 ml/min/1.73 sqM) Est GFR (CKD-EPI)NonAf 77 (>60 ml/min/1.73 sqM) Glucose 118 H (74-99) mg/dL POC Glucose (mg/dL) (75-99) mg/dL POC Glu Puller Over ID Calcium 9.9 (8.4-10.2) mg/dL Total Bilirubin 0.5 (0.2-1.3) mg/dL AST 48 H (14-36) U/L ALT 30 (4-34) U/L Alkaline Phosphatase 91 (38-126) U/L Ammonia <9 (<30) umol/L Creatine Kinase 65 (30-135) U/L Troponin I <0.012 (0.000-0.034) ng/mL Total Protein 6.7 (6.3-8.2) g/dL Albumin 4.0 (3.5-5.0) g/dL Urine Color Urine Appearance (Clear) Urine pH (5.0-8.0) Ur Specific [place] (1.001-1.035) Urine Protein (Negative) Urine Glucose (UA) (Negative) Urine Ketones (Negative) Urine Blood (Negative) Urine Nitrite (Negative) Urine Bilirubin (Negative) Urine Urobilinogen (<2.0) mg/dL Ur Leukocyte Esterase (Negative) Urine Opiates Screen (NotDetected) Ur Oxycodone Screen (NotDetected) Urine Methadone Screen (NotDetected) Ur Propoxyphene Screen (NotDetected) Ur Barbiturates Screen (NotDetected) U Tricyclic Antidepress (NotDetected) Ur Phencyclidine Scrn (NotDetected) Ur Amphetamines Screen (NotDetected) U Methamphetamines Scrn (NotDetected) U Benzodiazepines Scrn (NotDetected) Urine Cocaine Screen (NotDetected) U Marijuana (THC) Screen (NotDetected) 04/29/20 Range/Units 11:24 WBC (3.8-10.6) k/uL RBC (3.80-5.40) m/uL Hgb (11.4-16.0) gm/dL Hct (34.0-46.0) % MCV (80.0-100.0) fL MCH (25.0-35.0) pg MCHC (31.0-37.0) g/dL RDW (11.5-15.5) % Plt Count (150-450) k/uL Neutrophils % % Lymphocytes % % Monocytes % % Eosinophils % % Basophils % % Neutrophils # (1.3-7.7) k/uL Lymphocytes # (1.0-4.8) k/uL Monocytes # (0-1.0) k/uL Eosinophils # (0-0.7) k/uL Basophils # (0-0.2) k/uL PT (9.0-12.0) sec INR (<1.2) APTT (22.0-30.0) sec Sodium (137-145) mmol/L Potassium (3.5-5.1) mmol/L Chloride (98-107) mmol/L Carbon Dioxide (22-30) mmol/L Anion Gap mmol/L BUN (7-17) mg/dL Creatinine (0.52-1.04) mg/dL Est GFR (CKD-EPI)AfAm (>60 ml/min/1.73 sqM) Est GFR (CKD-EPI)NonAf (>60 ml/min/1.73 sqM) Glucose (74-99) mg/dL POC Glucose (mg/dL) 124 H (75-99) mg/dL POC Glu Puller Over ID Aliza Garrett Calcium (8.4-10.2) mg/dL Total Bilirubin (0.2-1.3) mg/dL AST (14-36) U/L ALT (4-34) U/L Alkaline Phosphatase (38-126) U/L Ammonia (<30) umol/L Creatine Kinase (30-135) U/L Troponin I (0.000-0.034) ng/mL Total Protein (6.3-8.2) g/dL Albumin (3.5-5.0) g/dL Urine Color Urine Appearance (Clear) Urine pH (5.0-8.0) Ur Specific [place] (1.001-1.035) Urine Protein (Negative) Urine Glucose (UA) (Negative) Urine Ketones (Negative) Urine Blood (Negative) Urine Nitrite (Negative) Urine Bilirubin (Negative) Urine Urobilinogen (<2.0) mg/dL Ur Leukocyte Esterase (Negative) Urine Opiates Screen (NotDetected) Ur Oxycodone Screen (NotDetected) Urine Methadone Screen (NotDetected) Ur Propoxyphene Screen (NotDetected) Ur Barbiturates Screen (NotDetected) U Tricyclic Antidepress (NotDetected) Ur Phencyclidine Scrn (NotDetected) Ur Amphetamines Screen (NotDetected) U Methamphetamines Scrn (NotDetected) U Benzodiazepines Scrn (NotDetected) Urine Cocaine Screen (NotDetected) U Marijuana (THC) Screen (NotDetected) Disposition <Tyson De Los Santos - Last Filed: 04/29/20 14:00> Is patient prescribed a controlled substance at d/c from ED?: No Time of Disposition: 14:24 <Apolinar Donovan - Last Filed: 04/29/20 14:24> Clinical Impression: Acute anxiety Disposition: HOME SELF-CARE Condition: Stable Instructions (If sedation given, give patient instructions): Anxiety (ED), Mild Cognitive Impairment: New Diagnosis (DC) Additional Instructions: Please do follow-up with your primary care physician in the being the week. Also consider follow-up as advised to mental health services. Return for unable to take care of self, weakness, mental status change, worsening or change in symptoms or other concerns. Referrals: Bright Forte MD [Primary Care Provider] - 1-2 days
[2020-04-29 12:05] LABS: Basophils % (A) 1 %; Eosinophils % (A) 0 %; HCT 35.8 % (34.0-46.0); HGB 11.6 gm/dL (11.4-16.0); Lymphocytes # (A) 1.9 k/uL (1.0-4.8); Lymphocytes % (A) 32 %; MCH 27.8 pg (25.0-35.0); MCHC 32.4 g/dL (31.0-37.0); MCV 85.8 fL (80.0-100.0); Mean Platelet Volume 7.5; Monocytes # (A) 0.4 k/uL (0-1.0); Monocytes % (A) 6 %; Neutrophils # (A) 3.4 k/uL (1.3-7.7); Neutrophils % (A) 58 %; Platelet Count 215 k/uL (150-450); RBC 4.18 m/uL (3.80-5.40); RDW 15.5 % (11.5-15.5); WBC 5.8 k/uL (3.8-10.6)
[2020-04-29 12:13] LABS: Calcium 9.9 mg/dL (8.4-10.2); Potassium 4.1 mmol/L (3.5-5.1); Total Bilirubin 0.5 mg/dL (0.2-1.3); Total Protein 6.7 g/dL (6.3-8.2)
--- NOTE | 2020-04-29 12:30 | XR ---
EXAMINATION TYPE: XR chest 2V DATE OF EXAM: 04/29/2020 COMPARISON: CT chest March 14, 2020. Two view chest xray March 03, 2020 HISTORY: Altered mental status and weakness. TECHNIQUE: Frontal and lateral views of the chest are obtained. FINDINGS: There is chronic minimal change without suspicious focal air space opacity, pleural effusi on, or pneumothorax seen. The cardiac silhouette size is mildly enlarged. Underlying scoliosis is pr esent. Surgical change cervical spine partially imaged. Osseous structures are demineralized. IMPRESSION: Chronic changes and mild cardiomegaly without acute pulmonary process currently.
[2020-04-29 12:48] LABS: INR 0.9 (<1.2); Prothrombin Time 9.7 sec (9.0-12.0)
[2020-04-29 12:51] LABS: Partial Thromboplastin Time 20.6 sec (22.0-30.0)
[2020-04-29 13:06] LABS: Appearance,Urine Clear (Clear); Bilirubin,Urine Negative (Negative); Blood,Urine Negative (Negative); Color,Urine Yellow; Glucose,Urine (UA) Negative (Negative); Ketones,Urine Trace (Negative); Leukocyte Esterase,Urine Negative (Negative); Nitrite,Urine Negative (Negative); PH, Urine 6.5 (5.0-8.0); Protein,Urine Negative (Negative); Urobilinogen,Urine <2.0 mg/dL (<2.0)
[2020-04-29 13:20] LABS: Amphetamine Screen,Urine Not Detected (NotDetected); Barbiturate Screen,Urine Not Detected (NotDetected); Benzodiazepines Screen,Urine Detected (NotDetected); Cocaine Screen,Urine Not Detected (NotDetected); Methadone Screen, Urine Not Detected (NotDetected); Opiate Screen,Urine Detected (NotDetected); Oxycodone Screen, Urine Not Detected (NotDetected); Phencyclidine Screen,Urine Not Detected (NotDetected); Tricyclic Antidepressant,Urine Not Detected (NotDetected); Urn Cannabinoid Scrn Not Detected (NotDetected)
[2020-04-29] MEDS ORDERED: ALPRAZolam 0.25 MG TAB PO STA ×2 (14:20→14:24)
[2020-04-29 15:05] VITALS: BP 178/75; PULSE 76; RESP 16; TEMP 98.6
== END 2020-04-29 15:07 | disposition home or self-care (01) ==
LOC: EC 10:36
DX: F41.9 Anxiety disorder, unspecified (principal); F30.9 Manic episode, unspecified; R30.0 Dysuria; K21.9 Gastro-esophageal reflux disease without esophagitis; E78.5 Hyperlipidemia, unspecified; I10 Essential (primary) hypertension; E07.9 Disorder of thyroid, unspecified; K58.9 Irritable bowel syndrome, unspecified; G89.29 Other chronic pain; R10.9 Unspecified abdominal pain; Z79.82 Long term (current) use of aspirin; Z79.890 Hormone replacement therapy; Z79.899 Other long term (current) drug therapy; Z88.1 Allergy status to other antibiotic agents; Z88.0 Allergy status to penicillin; Z88.8 Allergy status to other drugs, medicaments and biological substances
CPT/HCPCS: 36415; 71046; 80053; 80306; 81003; 82140; 82550; 84484; 85025; 85610; 85730; 93005; 96360; 99285

== ENCOUNTER → 2021-08-19 | Outpatient (CLI) | payer MEDICARE ==
[2021-08-19 13:44] VITALS: BP 144/85; PULSE 76; TEMP 97.9; BMI 26.2
--- NOTE | 2021-08-19 14:53 | P.HPBAR ---
Bariatric H&P - History & Physicial H&P Date: 08/19/21 History & Physicial: Visit/CC: lap band follow up Patient initial contact: Initial weight: 59.562 kg Initial weight in pounds: 131.31 Height: 5 ft Initial BMI: 25.6 Last weight: Current weight: 60.781 kg Current weight in pounds: 134.00 Current BMI: 26.2 [place] body weight (based on NIH guidelines): 45.359 kg Excess body weight loss: The patient is a 76 year-old F who presents for Bariatric Assessment. Patient presents today for LAP-BAND follow-up. She is requesting fluid removed from her band. His had some trouble with dysphagia. Past Medical History Past Medical History: GERD/Reflux, Hyperlipidemia, Hypertension, Osteoarthritis (OA), Thyroid Disorder Additional Past Medical History / Comment(s): IBS, chronic abd pain, History of Any Multi-Drug Resistant Organisms: VRE Year Discovered:: 01/17/19 MDRO Source:: urine Past Surgical History: Cholecystectomy, Hernia Repair, Tonsillectomy, Tubal Ligation Additional Past Surgical History / Comment(s): lap band, Past Anesthesia/Blood Transfusion Reactions: No Reported Reaction Additional Past Anesthesia/Blood Transfusion Reaction / Comm: No blood transfusion to date Past Psychological History: Anxiety, Bipolar, Depression, Panic Disorder Additional Psychological History / Comment(s): OCD Smoking Status: Never smoker Past Alcohol Use History: None Reported Additional Past Alcohol Use History / Comment(s): STARTED SMOKING AT AGE 18 DOWN TO 1/2 PPD Past Drug Use History: None Reported Additional Drug Use History / Comment(s): 1/2 pack /day x 50 years (off and on) - Past Family History Father Family Medical History: Cancer Additional Family Medical History / Comment(s): Prostate and bone cancer Mother Family Medical History: Dementia Surgical - Exam Vital Signs Temp Pulse BP 97.9 F 76 144/85 08/19/21 13:43 08/19/21 13:43 08/19/21 13:43 - General well developed, well nourished, no distress - Eyes PERRL - ENT normal pinna - Neck no masses - Respiratory normal expansion - Cardiovascular Rhythm: regular - Abdomen Abdomen: soft, non tender Bariatric Assessment & Plan Plan: Patient LAP-BAND was adjusted. She had 1 mL removed from her band. She was. Patient follow-up in 3 months. Bariatric Checklist Checklist: Plan: Checklist: EGD: 1. Hiatal hernia: 2. H. Pylori: HgbA1c: Vitamin D: Smoking: Current every day smoker Primary care physician referral: Vicky Psychiatry clearance: Cardiology clearance: Sleep study: Diet journal: VTE risk score: VTE risk level: Rehab needs at discharge:
== END ==
LOC: BARWHC3 13:26
PROVIDERS: ATTEND Surgery
DX: Z46.51 Encounter for fitting and adjustment of gastric lap band (principal); K21.9 Gastro-esophageal reflux disease without esophagitis; E78.5 Hyperlipidemia, unspecified; I10 Essential (primary) hypertension; M19.90 Unspecified osteoarthritis, unspecified site; F31.9 Bipolar disorder, unspecified; F41.0 Panic disorder [episodic paroxysmal anxiety]; F17.210 Nicotine dependence, cigarettes, uncomplicated; Z98.84 Bariatric surgery status; Z88.1 Allergy status to other antibiotic agents; Z88.3 Allergy status to other anti-infective agents
CPT/HCPCS: 99212

== ENCOUNTER 2021-08-23 00:44 | Observation (INO) | payer MEDICARE ==
[2021-08-23] MEDS ORDERED: SODIUM CHLORIDE 0.9% 1,000 ML IV STA (00:47)
--- NOTE | 2021-08-23 00:48 | ED ---
Chest Pain HPI - General Stated Complaint: Chest Pain Time Seen by Provider: 08/23/21 00:46 Source: RN notes reviewed, old records reviewed Limitations: no limitations - History of Present Illness Initial Comments: This is a 68-year-old female DF for evaluation of substernal chest pain chest pain to her back. No shortness of breath. History of high blood pressure high cholesterol. No history of heart disease. No travel history sick contacts. No recent fever, no recent coronavirus. No trauma. No significant other complaints MD Complaint: chest pain -: hour(s) Onset: during rest Pain Location: substernal, left chest Pain Radiation: back Severity: moderate Severity scale (1-10): 4 Quality: tightness Consistency: intermittent, now resolved Improves With: nothing Worsens With: nothing Anginal Symptoms: dyspnea Other Symptoms: cough Treatments Prior to Arrival: none - Related Data Home Medications Medication Instructions Recorded Confirmed Aspirin EC [Ecotrin] 325 mg PO DAILY 07/28/16 04/29/20 Levothyroxine Sodium [Synthroid] 25 mcg PO DAILY 02/16/18 04/29/20 Potassium Chloride [Klor-Con 10 ER] 10 meq PO BID 03/11/18 04/29/20 Cholecalciferol [Vitamin D3 (25 2,000 unit PO DAILY 09/19/18 04/29/20 Mcg = 1000 Iu)] FLUoxetine HCL [PROzac] 60 mg PO DAILY 10/31/18 04/29/20 Fish Oil/Dha/Epa [Fish Oil 1,200 1 cap PO DAILY 01/02/19 04/29/20 mg Fish Oil] Losartan Potassium 50 mg PO DAILY 01/02/19 04/29/20 OLANZapine [ZyPREXA] 2.5 mg PO HS 01/17/19 04/29/20 Omeprazole 20 mg PO DAILY 09/29/19 04/29/20 Pravastatin Sodium [Pravachol] 40 mg PO DAILY 09/29/19 04/29/20 busPIRone HCL 10 mg PO BID 11/09/19 04/29/20 Benztropine Mesylate [Cogentin] 1 mg PO DAILY 04/21/20 04/29/20 HYDROcodone/APAP 10-325MG [[place] 1 tab PO BID PRN 04/21/20 04/29/20 10-325] Loperamide [Imodium] 2 mg PO QID PRN 04/29/20 04/29/20 Allergies Allergy/AdvReac Type Severity Reaction Status Date / Time ciprofloxacin [From Cipro] Allergy Severe Itching Verified 04/29/20 13:07 amoxicillin Allergy Unknown Verified 04/29/20 13:07 cefuroxime Allergy Itching Verified 04/29/20 13:07 clindamycin Allergy Unknown Verified 04/29/20 13:07 metronidazole Allergy Unknown Verified 04/29/20 13:07 Review of Systems ROS Statement: Those systems with pertinent positive or pertinent negative responses have been documented in the HPI. ROS Other: All systems not noted in ROS Statement are negative. EKG Findings - EKG Comments: EKG Findings:: EKG sinus bradycardia 51 CT 226 QRS 468 Past Medical History Past Medical History: GERD/Reflux, Hyperlipidemia, Hypertension, Osteoarthritis (OA), Thyroid Disorder Additional Past Medical History / Comment(s): IBS, chronic abd pain, History of Any Multi-Drug Resistant Organisms: VRE Date of last positivie culture/infection: 01/17/19 MDRO Source:: urine Past Surgical History: Cholecystectomy, Hernia Repair, Tonsillectomy, Tubal Ligation Additional Past Surgical History / Comment(s): lap band, Past Anesthesia/Blood Transfusion Reactions: No Reported Reaction Additional Past Anesthesia/Blood Transfusion Reaction / Comment(s): No blood transfusion to date Past Psychological History: Anxiety, Bipolar, Depression, Panic Disorder Additional Psychological History / Comment(s): OCD Smoking Status: Never smoker Past Alcohol Use History: None Reported Additional Past Alcohol Use History / Comment(s): STARTED SMOKING AT AGE 18 DOWN TO 1/2 PPD Past Drug Use History: None Reported Additional Drug Use History / Comment(s): 1/2 pack /day x 50 years (off and on) - Past Family History Father Family Medical History: Cancer Additional Family Medical History / Comment(s): Prostate and bone cancer Mother Family Medical History: Dementia General Exam General appearance: alert, in no apparent distress Head exam: Present: atraumatic, normocephalic, normal inspection Eye exam: Present: normal appearance, PERRL, EOMI. Absent: scleral icterus, conjunctival injection, periorbital swelling ENT exam: Present: normal exam, mucous membranes moist Neck exam: Present: normal inspection. Absent: tenderness, meningismus, lymphadenopathy Respiratory exam: Present: normal lung sounds bilaterally. Absent: respiratory distress, wheezes, rales, rhonchi, stridor Cardiovascular Exam: Present: regular rate, normal rhythm, normal heart sounds. Absent: systolic murmur, diastolic murmur, rubs, gallop, clicks GI/Abdominal exam: Present: soft, normal bowel sounds. Absent: distended, tenderness, guarding, rebound, rigid Extremities exam: Present: normal inspection, full ROM, normal capillary refill. Absent: tenderness, pedal edema, joint swelling, calf tenderness Back exam: Present: normal inspection Neurological exam: Present: alert, oriented X3, CN II-XII intact Psychiatric exam: Present: normal affect, normal mood Skin exam: Present: warm, dry, intact, normal color. Absent: rash Course Vital Signs 08/23/21 01:27 Temperature 98.6 F Pulse Rate 54 L Respiratory 20 Rate Blood Pressure 133/55 O2 Sat by Pulse 98 Oximetry - Reevaluation(s) Reevaluation #1: 08/23/21 03:22 Record is reviewed Reevaluation #2: 08/23/21 03:22 Patient has no recurrent chest pain here in the ER Reevaluation #3: 08/23/21 03:22 No recent travel history or sick contacts. Is informed of results and questions answered Chest Pain MDM - MDM 76 female to the emergency department for evaluation patient presents today for evaluation regards to chest pain. History of high blood pressure high cholesterol, patient will be admitted for chest pain observation Disposition Clinical Impression: Chest pain Disposition: ADMITTED IP TO THIS HOSP Condition: Fair Is patient prescribed a controlled substance at d/c from ED?: No Referrals: Bright Forte MD [Primary Care Provider] - 1-2 days
[2021-08-23 01:34] LABS: Basophils # (A) 0.1 k/uL (0-0.2); Basophils % (A) 1 %; Eosinophils # (A) 0.2 k/uL (0-0.7); Eosinophils % (A) 3 %; HCT 35.4 % (34.0-46.0); HGB 12.1 gm/dL (11.4-16.0); Lymphocytes # (A) 2.7 k/uL (1.0-4.8); Lymphocytes % (A) 46 %; MCH 32.7 pg (25.0-35.0); Monocytes # (A) 0.5 k/uL (0-1.0); Monocytes % (A) 8 %; Neutrophils # (A) 2.4 k/uL (1.3-7.7); Neutrophils % (A) 40 %; Platelet Count 175 k/uL (150-450); RBC 3.69 m/uL (3.80-5.40); RDW 13.2 % (11.5-15.5); WBC 5.9 k/uL (3.8-10.6)
[2021-08-23 01:48] LABS: Albumin 2.9 g/dL (3.5-5.0); Calcium 8.6 mg/dL (8.4-10.2); Phosphorus 3.6 mg/dL (2.5-4.5); Potassium 3.4 mmol/L (3.5-5.1); Total Bilirubin 0.2 mg/dL (0.2-1.3); Total Protein 5.4 g/dL (6.3-8.2)
[2021-08-23 01:58] LABS: INR 0.9 (<1.2); Partial Thromboplastin Time 22.1 sec (22.0-30.0); Prothrombin Time 9.5 sec (9.0-12.0)
[2021-08-23] MEDS ORDERED: MORPHINE SULFATE 4 MG/ML SYRINGE IV PRN (03:19)
[2021-08-23] MEDS ORDERED: NALOXONE 0.4 MG/ML 1 ML VIAL IV PRN (03:19)
[2021-08-23] MEDS ORDERED: ONDANSETRON 4 MG/2 ML VIAL IVP PRN (03:19)
[2021-08-23] MEDS ORDERED: POTASSIUM BICARB-CITRIC ACID 25 MEQ TABLET.EFF PO ONE (03:21)
[2021-08-23 03:27] VITALS: RESP 16
[2021-08-23] MEDS ORDERED: SODIUM CHLORIDE 0.9% 1,000 ML IV SCH (03:30)
--- NOTE | 2021-08-23 03:30 | XR ---
EXAMINATION TYPE: XR chest 2V DATE OF EXAM: 08/23/2021 COMPARISON: 04/29/2020 HISTORY: Chest pain TECHNIQUE: 2 views FINDINGS: Heart is normal. Lungs are clear of consolidation. There are no hilar masses. Thoracic aort a is atheromatous. Bony thorax is intact. There is some pleural reaction at the lateral left lung ba se. IMPRESSION: There is improvement in the pleural reaction left lung base compared to old exam. Normal heart.
[2021-08-23] MEDS ORDERED: REGADENOSON 0.4 MG/5 ML SYRINGE IV PRN (08:27)
[2021-08-23] MEDS ORDERED: AMINOPHYLLINE 500 MG/20 ML VIAL IV PRN (08:27)
[2021-08-23] MEDS ORDERED: CAFFEINE CITRATE 60 MG/3 ML VIAL IV PRN (08:27)
[2021-08-23 08:29] VITALS: BP 122/74; PULSE 53; TEMP 98
[2021-08-23] MEDS ORDERED: LOSARTAN 50 MG TAB PO SCH (09:00)
[2021-08-23] MEDS ORDERED: LEVOTHYROXINE 25 MCG TAB PO SCH (09:00)
[2021-08-23] MEDS ORDERED: PANTOPRAZOLE 40 MG TABLET PO SCH (09:00)
[2021-08-23] MEDS ORDERED: ASPIRIN 325 MG TAB PO SCH (09:00)
[2021-08-23] MEDS ORDERED: busPIRone HCl 10 MG TAB PO SCH (09:00)
--- NOTE | 2021-08-23 10:18 | P.CRDCN ---
History of Present Illness Consult date: 08/23/21 History of present illness: HISTORY OF PRESENT ILLNESS: This is a 76-year-old female with a past medical history significant for hypertension, hyperlipidemia, osteoarthritis, GERD, and nicotine dependence. 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 We have been asked to see the patient in consultation for chest pain. Patient examined at the bedside. Patient reports she had 2 episodes yesterday of chest pain. She states the pain was in the middle of her chest in radiated to her back. She also reported feeling short of breath. She denied any nausea or vomiting. No fever or chills. At the time of examination, the patient denies chest pain or pressure. She denies a family history of coronary artery disease. EKG reveals sinus bradycardia with first-degree AV block. Low voltage QRS. No evidence of acute ischemia. Chest xray there is improvement in the pleural reaction left lung base compared to old exam. Normal heart. Laboratory data: WBC 5.9. Hemoglobin 12.1. Platelet count 175. Sodium 128. Potassium 3.4. BUN 26. Creatinine 1.05. Magnesium 2.0. Troponin negative 3. Current home cardiac medications include propanolol 20 mg twice a day, losartanhydrochlorothiazide 99159.5 mg daily, Lasix 20 mg daily, and aspirin 81 mg daily REVIEW OF SYSTEMS: At the time of my exam: CONSTITUTIONAL: Denies fever or chills. HEENT: Denies blurred vision, vision changes, or eye pain. Denies hemoptysis CARDIOVASCULAR: Denies chest pain. Denies orthopnea. Denies PND. Denies palpitations RESPIRATORY: Denies shortness of breath. GASTROINTESTINAL: Denies abdominal pain. Denies nausea or vomiting. HEMATOLOGIC: Denies bleeding disorders. GENITOURINARY: Denies any blood in urine. SKIN: Denies pruitis. Denies rash. PHYSICAL EXAM: VITAL SIGNS: Reviewed. GENERAL: Well-developed in no acute distress. HEENT: Head is normocephalic. Pupils are equal, round. Sclerae anicteric. Mucous membranes of the mouth are moist. Neck supple. No JVD or thyromegaly LUNGS: Respirations even and unlabored. Lungs essentially clear to auscultation bilaterally. HEART: Regular rate and rhythm. S1 and S2 heard. ABDOMEN: Soft. Nondistended. Nontender. EXTREMITIES: Normal range of motion. No clubbing or cyanosis. Peripheral pulses intact. No lower extremity edema NEUROLOGIC: Awake and alert. Oriented x 3. ASSESSMENT: Chest pain Hypertension Hyperlipidemia Osteoarthritis GERD Nicotine dependence PLAN: An acute coronary event has been ruled out Obtain 2-D echo to assess cardiac structure and function Smoking cessation recommended Patient undergo Lexiscan stress test today If stress test is negative and 2-D echo does not reveal any significant abnormalities, patient may be discharged home today from a cardiac standpoint Nurse practitioner note has been reviewed by physician. Signing provider agrees with the documented findings, assessment, and plan of care. Past Medical History Past Medical History: Dementia, GERD/Reflux, Hyperlipidemia, Hypertension, Osteoarthritis (OA), Pneumonia, Thyroid Disorder, Vascular Disorder Additional Past Medical History / Comment(s): Chronic abdominal pain, IBS/colitis, gastritis, chronic low back and bilateral knee pain, recent L lower leg swelling at times, UTIs, bronchitis/recently approximately 2 weeks ago, past elevated LFTs, scarlet fever as a child. History of Any Multi-Drug Resistant Organisms: VRE Date of last positivie culture/infection: 01/17/19 MDRO Source:: urine Past Surgical History: Appendectomy, Cholecystectomy, Hernia Repair, Tonsillectomy, Tubal Ligation Additional Past Surgical History / Comment(s): lap band, ventral hernia repair, incisional hernia repairs, EGD, colonoscopy, D&Cs, bilateral cataract removals. Past Anesthesia/Blood Transfusion Reactions: No Reported Reaction Additional Past Anesthesia/Blood Transfusion Reaction / Comment(s): No blood transfusion to date Smoking Status: Current every day smoker - Past Family History Father Family Medical History: Cancer Additional Family Medical History / Comment(s): Prostate and bone cancer Mother Family Medical History: Dementia Medications and Allergies Home Medications Medication Instructions Recorded Confirmed Type Levothyroxine Sodium [Synthroid] 25 mcg PO DAILY 02/16/18 08/23/21 History Potassium Chloride [Klor-Con 10 ER] 10 meq PO BID 03/11/18 08/23/21 History Cholecalciferol [Vitamin D3 (25 50 mcg PO DAILY 09/19/18 08/23/21 History Mcg = 1000 Iu)] Omeprazole 20 mg PO DAILY 09/29/19 08/23/21 History busPIRone HCL 10 mg PO BID 11/09/19 08/23/21 History Aspirin EC [Ecotrin Low Dose] 81 mg PO DAILY 08/23/21 08/23/21 History Cider Vinegar [Apple Cider Vinegar] 300 mg PO DAILY 08/23/21 08/23/21 History FLUoxetine HCL 40 mg PO DAILY 08/23/21 08/23/21 History Furosemide [Lasix] 20 mg PO DAILY 08/23/21 08/23/21 History HYDROcodone/APAP 7.5-325MG [[place] 1 tab PO TID 08/23/21 08/23/21 History 7.5-325] Lactulose [Constulose] 10 gm PO DAILY PRN 08/23/21 08/23/21 History Loperamide HCl [Imodium A-D] 2 mg PO DAILY 08/23/21 08/23/21 History Losartan/Hydrochlorothiazide 1 tab PO DAILY 08/23/21 08/23/21 History [Hyzaar 100-12.5 Tablet] Magnesium Oxide [Mag-Ox] 400 mg PO DAILY 08/23/21 08/23/21 History Melatonin 5 mg PO HS 08/23/21 08/23/21 History Multivit with Calcium,Iron,Min 1 tab PO DAILY 08/23/21 08/23/21 History [Women's Multivitamin] OLANZapine [ZyPREXA] 10 mg PO HS 08/23/21 08/23/21 History Oxybutynin ER [Ditropan Xl] 10 mg PO DAILY 08/23/21 08/23/21 History Propranolol [Inderal] 20 mg PO BID 08/23/21 08/23/21 History QUEtiapine [SEROquel] 75 mg PO HS 08/23/21 08/23/21 History Tiotropium 2.5 Mcg/Puff [Spiriva 2 puff INHALATION RT-DAILY 08/23/21 08/23/21 History Respimat 2.5 Mcg] hydrOXYzine pamoate [Vistaril] 25 mg PO BID 08/23/21 08/23/21 History Allergies Allergy/AdvReac Type Severity Reaction Status Date / Time ciprofloxacin [From Cipro] Allergy Severe Itching Verified 04/29/20 13:07 amoxicillin Allergy Unknown Verified 04/29/20 13:07 cefuroxime Allergy Itching Verified 04/29/20 13:07 clindamycin Allergy Unknown Verified 04/29/20 13:07 metronidazole Allergy Unknown Verified 04/29/20 13:07 Physical Exam Vitals: Vital Signs Temp Pulse Pulse Resp BP BP Pulse Ox 08/23/21 08:25 98.0 F 53 L 16 122/74 97 08/23/21 04:27 60 16 127/48 95 08/23/21 03:26 61 16 127/57 97 08/23/21 01:27 98.6 F 54 L 20 133/55 98 Intake and Output 08/22/21 08/23/21 08/23/21 22:59 06:59 14:59 Other: Weight 59.421 kg 59.421 kg Results 08/23/21 01:16 08/23/21 01:16 Cardiac Enzymes 08/23/21 08/23/21 08/23/21 Range/Units 01:16 01:16 04:58 AST 28 (14-36) U/L Troponin I <0.012 <0.012 (0.000-0.034) ng/mL 08/23/21 Range/Units 07:12 AST (14-36) U/L Troponin I <0.012 (0.000-0.034) ng/mL Coagulation 08/23/21 Range/Units 01:16 PT 9.5 (9.0-12.0) sec APTT 22.1 (22.0-30.0) sec CBC 08/23/21 Range/Units 01:16 WBC 5.9 (3.8-10.6) k/uL RBC 3.69 L (3.80-5.40) m/uL Hgb 12.1 (11.4-16.0) gm/dL Hct 35.4 (34.0-46.0) % Plt Count 175 (150-450) k/uL Comprehensive Metabolic Panel 08/23/21 Range/Units 01:16 Sodium 128 L (137-145) mmol/L Potassium 3.4 L (3.5-5.1) mmol/L Chloride 97 L (98-107) mmol/L Carbon Dioxide 24 (22-30) mmol/L BUN 26 H (7-17) mg/dL Creatinine 1.05 H (0.52-1.04) mg/dL Glucose 112 H (74-99) mg/dL Calcium 8.6 (8.4-10.2) mg/dL AST 28 (14-36) U/L ALT 19 (4-34) U/L Alkaline Phosphatase 98 (38-126) U/L Total Protein 5.4 L (6.3-8.2) g/dL Albumin 2.9 L (3.5-5.0) g/dL Current Medications Generic Name Dose Route Start Last Admin Trade Name Freq PRN Reason Stop Dose Admin Aminophylline 100 mg 08/23/21 08:27 Aminophylline 500 Mg/20 Ml Vial IV 08/23/21 12:27 ONCE PRN Patient Response Aspirin 325 mg 08/23/21 09:00 Aspirin 325 Mg Tab PO DAILY SHERINE Buspirone HCl 10 mg 08/23/21 09:00 Buspirone Hcl 10 Mg Tab PO BID SHERINE Caffeine Citrate 60 mg 08/23/21 08:27 Caffeine Citrate 60 Mg/3 Ml Vial IV 08/23/21 12:27 ONCE PRN Patient Response Sodium Chloride 1,000 mls @ 130 mls/hr 08/23/21 03:30 08/23/21 05:00 Saline 0.9% IV 130 mls/hr .[id number] SHERINE Administration Levothyroxine Sodium 25 mcg 08/23/21 09:00 Levothyroxine 25 Mcg Tab PO DAILY@0630 SHERINE Losartan Potassium 50 mg 08/23/21 09:00 Losartan 50 Mg Tab PO DAILY SHERINE Morphine Sulfate 4 mg 08/23/21 03:19 Morphine Sulfate 4 Mg/Ml Syringe IV Q4HR PRN Severe Pain Naloxone HCl 0.2 mg 08/23/21 03:19 Naloxone 0.4 Mg/Ml 1 Ml Vial IV Q2M PRN Opioid Reversal Olanzapine 2.5 mg 08/23/21 21:00 Olanzapine 2.5 Mg Tab PO HS SHERINE Ondansetron HCl 4 mg 08/23/21 03:19 Ondansetron 4 Mg/2 Ml Vial IVP Q8HR PRN Nausea And Vomiting Pantoprazole Sodium 40 mg 08/23/21 09:00 Pantoprazole 40 Mg Tablet PO AC-BRKFST SHERINE Regadenoson 0.4 mg 08/23/21 08:27 Regadenoson 0.4 Mg/5 Ml Syringe IV 08/23/21 12:27 ONCE PRN Per Protocol Intake and Output 08/22/21 08/23/21 08/23/21 22:59 06:59 14:59 Other: Weight 59.421 kg 59.421 kg Patient Weight 08/24/21 06:59 Weight 59.421 kg 08/23/21 01:16 08/23/21 01:16
[2021-08-23] MEDS ORDERED: Potassium Replacement Protocol 1 EACH MISC MISCELLANE PRN (10:50)
--- NOTE | 2021-08-23 12:15 | NM ---
EXAMINATION TYPE: NM stress lexiscan cardiolite DATE OF EXAM: 08/23/2021 COMPARISON: Prior nuclear medicine study January 02, 2020 HISTORY: Chest pain. TECHNIQUE: After the intravenous administration of 10.17 mCi Tc 99m Sestamibi - Cardiolite resting S PECT images acquired 55 minutes post injection. The patient received 0.4mg Lexiscan, 25.9 mCi Tc 99m Sestamibi - Stress images obtained [address] injection FINDINGS: Review of stress and rest SPECT images demonstrates no distinct perfusion abnormality. Gated analysi s shows normal wall motion with an estimated left ventricular ejection fraction of 62 %. IMPRESSION: No scintigraphic evidence for reversible ischemia.
--- NOTE | 2021-08-23 13:34 | EST ---
EXERCISE STRESS AGE: 76 SEX: F HT: 5' WT: 130 lbs. PROTOCOL: Lexiscan Cardiolite STAGE: NA DURATION OF EXERCISE: NA HEART RATE REST: 56 BLOOD PRESSURE REST: 152/65 MAXIMUM HEART RATE ACHIEVED: 72 MAXIMUM BLOOD PRESSURE: 154/61 85% MPHR: 121 100% MPHR: 142 METS: NA INDICATIONS: Chest pain. CLINICAL INFORMATION: Baseline EKG shows sinus bradycardia with poor R-wave progression. Patient was given intravenous Lexiscan as per protocol, did not have chest pain or diagnostic ST-segment depression. CONCLUSIONS: 1. Negative stress test by EKG criteria. 2. Cardiolite portion of the stress test will be reported separately. MMODL / IJN: [id number] /
--- NOTE | 2021-08-23 17:40 | ECHOF ---
Referral Reason:lv function, chest pain MEASUREMENTS -------- HEIGHT: 152.4 cm WEIGHT: 59.4 kg BP: RVIDd: 3.0 cm (< 3.3) IVSd: 1.2 cm (0.6 - 1.1) LVIDd: 3.9 cm (3.9 - 5.3) LVPWd: 1.0 cm (0.6 - 1.1) IVSs: 1.5 cm LVIDs: 3.1 cm LVPWs: 0.9 cm LAESV Index (A-L): 34.45 ml/m Ao Diam: 2.6 cm (2.0 - 3.7) AV Cusp: 1.7 cm (1.5 - 2.6) LA Diam: 4.2 cm (2.7 - 3.8) MV EXCURSION: 25.683 mm (> 18.000) MV EF SLOPE: 127 mm/s (70 - 150) EPSS: 0.3 cm MV E Willis: 0.59 m/s MV DecT: 265 ms MV A Willis: 0.82 m/s MV E/A Ratio: 0.72 RAP: 5.00 mmHg RVSP: 15.39 mmHg FINDINGS -------- Sinus rhythm. This was a technically good study. The left ventricular size is normal. There is mild concentric left ventricular hypertrophy. Overa ll left ventricular systolic function is low-normal with, an EF between 50 - 55 %. The right ventricle is normal in size. LA is moderately dilated 34-39 ml/m2 The right atrial size is normal. There is mild aortic valve sclerosis. There is no evidence of aortic regurgitation. Mild mitral annular calcification present. Mild mitral regurgitation is present. Mild tricuspid regurgitation present. Right ventricular systolic pressure is normal at < 35 mmHg. There is no pulmonic regurgitation present. There is no pericardial effusion. CONCLUSIONS -------- 1. The left ventricular size is normal. 2. There is mild concentric left ventricular hypertrophy. 3. Overall left ventricular systolic function is low-normal with, an EF between 50 - 55 %. 4. The right ventricle is normal in size. 5. LA is moderately dilated 34-39 ml/m2 6. The right atrial size is normal. 7. There is mild aortic valve sclerosis. 8. Mild mitral annular calcification present. 9. Mild mitral regurgitation is present. 10. Mild tricuspid regurgitation present. 11. There is no pulmonic regurgitation present. 12. There is no pericardial effusion. STAFF DESIGN ENGINEER: Richa Rinaldi RDCS
[2021-08-23] MEDS ORDERED: OLANZapine 2.5 MG TAB PO SCH (21:00)
--- NOTE | 2021-09-16 08:41 | P.HPIM ---
History of Present Illness H&P Date: 08/23/21 Chief Complaint: chest pain Vilma Costa is a 76-year-old female with a past medical history significant for hypertension, hyperlipidemia, osteoarthritis, GERD, and nicotine dependence who presented to the ED complaining of chest pain. Patient reports she had 2 episodes yesterday of chest pain. She states the pain was in the middle of her chest in radiated to her back. She also reported feeling short of breath. She denied any nausea or vomiting. No fever or chills. At the time of examination, the patient denies chest pain or pressure. She denies a family history of coronary artery disease. EKG reveals sinus bradycardia with first-degree AV block, no ST/T changes. WBC 5.9. Hemoglobin 12.1. Platelet count 175. Sodium 128. Potassium 3.4. BUN 26. Creatinine 1.05. Magnesium 2.0. Troponin negative 3. She currently denies chest pain. Review of Systems All systems: negative Constitutional: Denies chills, Denies fever Eyes: denies blurred vision, denies pain Ears, nose, mouth and throat: Denies headache, Denies sore throat Cardiovascular: Reports chest pain, Denies shortness of breath Respiratory: Denies cough Gastrointestinal: Denies abdominal pain, Denies diarrhea, Denies nausea, Denies vomiting Genitourinary: Denies dysuria, Denies hematuria Musculoskeletal: Denies myalgias Integumentary: Denies pruritus, Denies rash Neurological: Denies numbness, Denies weakness Psychiatric: Denies anxiety, Denies depression Endocrine: Denies fatigue, Denies weight change Past Medical History Past Medical History: Dementia, GERD/Reflux, Hyperlipidemia, Hypertension, Osteoarthritis (OA), Pneumonia, Thyroid Disorder, Vascular Disorder Additional Past Medical History / Comment(s): Chronic abdominal pain, IBS/colitis, gastritis, chronic low back and bilateral knee pain, recent L lower leg swelling at times, UTIs, bronchitis/recently approximately 2 weeks ago, past elevated LFTs, scarlet fever as a child. History of Any Multi-Drug Resistant Organisms: VRE Date of last positivie culture/infection: 01/17/19 MDRO Source:: urine Past Surgical History: Appendectomy, Cholecystectomy, Hernia Repair, Tonsillectomy, Tubal Ligation Additional Past Surgical History / Comment(s): lap band, ventral hernia repair, incisional hernia repairs, EGD, colonoscopy, D&Cs, bilateral cataract removals. Past Anesthesia/Blood Transfusion Reactions: No Reported Reaction Additional Past Anesthesia/Blood Transfusion Reaction / Comment(s): No blood transfusion to date Smoking Status: Current every day smoker - Past Family History Father Family Medical History: Cancer Additional Family Medical History / Comment(s): Prostate and bone cancer Mother Family Medical History: Dementia Medications and Allergies Home Medications Medication Instructions Recorded Confirmed Type Levothyroxine Sodium [Synthroid] 25 mcg PO DAILY 02/16/18 08/23/21 History Potassium Chloride [Klor-Con 10 ER] 10 meq PO BID 03/11/18 08/23/21 History Cholecalciferol [Vitamin D3 (25 50 mcg PO DAILY 09/19/18 08/23/21 History Mcg = 1000 Iu)] Omeprazole 20 mg PO DAILY 09/29/19 08/23/21 History busPIRone HCL 10 mg PO BID 11/09/19 08/23/21 History Aspirin EC [Ecotrin Low Dose] 81 mg PO DAILY 08/23/21 08/23/21 History Cider Vinegar [Apple Cider Vinegar] 300 mg PO DAILY 08/23/21 08/23/21 History FLUoxetine HCL 40 mg PO DAILY 08/23/21 08/23/21 History Furosemide [Lasix] 20 mg PO DAILY 08/23/21 08/23/21 History HYDROcodone/APAP 7.5-325MG [[place] 1 tab PO TID 08/23/21 08/23/21 History 7.5-325] Lactulose [Constulose] 10 gm PO DAILY PRN 08/23/21 08/23/21 History Loperamide HCl [Imodium A-D] 2 mg PO DAILY 08/23/21 08/23/21 History Losartan [Cozaar] 50 mg PO DAILY #30 tab 08/23/21 Rx Magnesium Oxide [Mag-Ox] 400 mg PO DAILY 08/23/21 08/23/21 History Melatonin 5 mg PO HS 08/23/21 08/23/21 History Multivit with Calcium,Iron,Min 1 tab PO DAILY 08/23/21 08/23/21 History [Women's Multivitamin] OLANZapine [ZyPREXA] 10 mg PO HS 08/23/21 08/23/21 History Oxybutynin ER [Ditropan Xl] 10 mg PO DAILY 08/23/21 08/23/21 History Propranolol [Inderal] 20 mg PO BID 08/23/21 08/23/21 History QUEtiapine [SEROquel] 75 mg PO HS 08/23/21 08/23/21 History Tiotropium 2.5 Mcg/Puff [Spiriva 2 puff INHALATION RT-DAILY 08/23/21 08/23/21 History Respimat 2.5 Mcg] hydrOXYzine pamoate [Vistaril] 25 mg PO BID 08/23/21 08/23/21 History Allergies Allergy/AdvReac Type Severity Reaction Status Date / Time ciprofloxacin [From Cipro] Allergy Severe Itching Verified 04/29/20 13:07 amoxicillin Allergy Unknown Verified 04/29/20 13:07 cefuroxime Allergy Itching Verified 04/29/20 13:07 clindamycin Allergy Unknown Verified 04/29/20 13:07 metronidazole Allergy Unknown Verified 04/29/20 13:07 Physical Exam General: well developed, well nourished, NAD HEENT: normocephalic, atraumatic, mucus membranes moist Neck: supple, no JVD, no thyromegaly CV: RRR, no murmur. Pulses 2+ Lungs: normal effort, clear throughout Abd: soft, nontender, non distended Neuro: alert and oriented x3, no focal deficits Skin: warm and dry Results CBC & Chem 7: 08/23/21 01:16 08/23/21 01:16 Thrombosis Risk Factor Assmnt - Choose All That Apply Any of the Below Risk Factors Present?: Yes Each Factor Represents 1 point: Hx of IBD Other Risk Factors: Yes Each Risk Factor Represents 3 Points: Age 75 years or older Other congenital or acquired thrombophilia - If yes, enter type in comment: No Thrombosis Risk Factor Assessment Total Risk Factor Score: 4 Thrombosis Risk Factor Assessment Level: Moderate Risk Assessment and Plan Plan: 1. Chest pain. ACS ruled out. Cardiology consulted for further evaluation. Stress test scheduled. Continue home medications
--- NOTE | 2021-09-16 08:42 | P.DS ---
Providers Date of admission: 08/23/21 03:19 Expected date of discharge: 08/23/21 Attending physician: Bright Forte MD Primary care physician: Bright Forte MD Hospital Course: Vilma Costa is a 76-year-old female with a past medical history significant for hypertension, hyperlipidemia, osteoarthritis, GERD, and nicotine dependence who presented to the ED complaining of chest pain. Patient reports she had 2 episodes yesterday of chest pain. She states the pain was in the middle of her chest in radiated to her back. She also reported feeling short of breath. She denied any nausea or vomiting. No fever or chills. At the time of examination, the patient denies chest pain or pressure. She denies a family history of coronary artery disease. EKG reveals sinus bradycardia with first-degree AV block, no ST/T changes. WBC 5.9. Hemoglobin 12.1. Platelet count 175. Sodium 128. Potassium 3.4. BUN 26. Creatinine 1.05. Magnesium 2.0. Troponin negative 3. She currently denies chest pain. Pt seen by Cardiology. She underwent stress test which was negative for ischemia. 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 Patient Condition at Discharge: Fair Plan - Discharge Summary Discharge Rx Participant: No New Discharge Prescriptions: New Losartan [Cozaar] 50 mg PO DAILY #30 tab Continue Levothyroxine Sodium [Synthroid] 25 mcg PO DAILY Potassium Chloride [Klor-Con 10 ER] 10 meq PO BID Cholecalciferol [Vitamin D3 (25 Mcg = 1000 Iu)] 50 mcg PO DAILY Omeprazole 20 mg PO DAILY busPIRone HCL 10 mg PO BID Propranolol [Inderal] 20 mg PO BID Oxybutynin ER [Ditropan Xl] 10 mg PO DAILY OLANZapine [ZyPREXA] 10 mg PO HS Melatonin 5 mg PO HS hydrOXYzine pamoate [Vistaril] 25 mg PO BID HYDROcodone/APAP 7.5-325MG [[place] 7.5-325] 1 tab PO TID Furosemide [Lasix] 20 mg PO DAILY Cider Vinegar [Apple Cider Vinegar] 300 mg PO DAILY Aspirin EC [Ecotrin Low Dose] 81 mg PO DAILY Multivit with Calcium,Iron,Min [Women's Multivitamin] 1 tab PO DAILY Loperamide HCl [Imodium A-D] 2 mg PO DAILY QUEtiapine [SEROquel] 75 mg PO HS Tiotropium 2.5 Mcg/Puff [Spiriva Respimat 2.5 Mcg] 2 puff INHALATION RT-DAILY Magnesium Oxide [Mag-Ox] 400 mg PO DAILY Lactulose [Constulose] 10 gm PO DAILY PRN PRN Reason: Constipation FLUoxetine HCL 40 mg PO DAILY Discontinued Losartan/Hydrochlorothiazide [Hyzaar 100-12.5 Tablet] 1 tab PO DAILY Discharge Medication List Levothyroxine Sodium [Synthroid] 25 mcg PO DAILY 02/16/18 [History] Potassium Chloride [Klor-Con 10 ER] 10 meq PO BID 03/11/18 [History] Cholecalciferol [Vitamin D3 (25 Mcg = 1000 Iu)] 50 mcg PO DAILY 09/19/18 [History] Omeprazole 20 mg PO DAILY 09/29/19 [History] busPIRone HCL 10 mg PO BID 11/09/19 [History] Aspirin EC [Ecotrin Low Dose] 81 mg PO DAILY 08/23/21 [History] Cider Vinegar [Apple Cider Vinegar] 300 mg PO DAILY 08/23/21 [History] FLUoxetine HCL 40 mg PO DAILY 08/23/21 [History] Furosemide [Lasix] 20 mg PO DAILY 08/23/21 [History] HYDROcodone/APAP 7.5-325MG [[place] 7.5-325] 1 tab PO TID 08/23/21 [History] Lactulose [Constulose] 10 gm PO DAILY PRN 08/23/21 [History] Loperamide HCl [Imodium A-D] 2 mg PO DAILY 08/23/21 [History] Losartan [Cozaar] 50 mg PO DAILY #30 tab 08/23/21 [Rx] Magnesium Oxide [Mag-Ox] 400 mg PO DAILY 08/23/21 [History] Melatonin 5 mg PO HS 08/23/21 [History] Multivit with Calcium,Iron,Min [Women's Multivitamin] 1 tab PO DAILY 08/23/21 [History] OLANZapine [ZyPREXA] 10 mg PO HS 08/23/21 [History] Oxybutynin ER [Ditropan Xl] 10 mg PO DAILY 08/23/21 [History] Propranolol [Inderal] 20 mg PO BID 08/23/21 [History] QUEtiapine [SEROquel] 75 mg PO HS 08/23/21 [History] Tiotropium 2.5 Mcg/Puff [Spiriva Respimat 2.5 Mcg] 2 puff INHALATION RT-DAILY 08/23/21 [History] hydrOXYzine pamoate [Vistaril] 25 mg PO BID 08/23/21 [History] Follow up Appointment(s)/Referral(s): Bright Forte MD [Primary Care Provider] - 1 Week Patient Instructions/Handouts: Chest Pain (DC) Discharge Disposition: HOME SELF-CARE
== END 2021-08-23 13:20 | disposition home or self-care (01) ==
LOC: EC 00:44 → 6NMEDSUR 03:19 → UNDODISOB 13:20
PROVIDERS: ADMIT Family Medicine; ATTEND Family Medicine
DX: R07.89 Other chest pain (principal); I11.9 Hypertensive heart disease without heart failure; I08.3 Combined rheumatic disorders of mitral, aortic and tricuspid valves; I70.0 Atherosclerosis of aorta; I44.0 Atrioventricular block, first degree; R00.1 Bradycardia, unspecified; E78.00 Pure hypercholesterolemia, unspecified; K21.9 Gastro-esophageal reflux disease without esophagitis; M19.90 Unspecified osteoarthritis, unspecified site; E78.5 Hyperlipidemia, unspecified; E07.9 Disorder of thyroid, unspecified; G89.29 Other chronic pain; M54.50 Low back pain, unspecified; M25.561 Pain in right knee; M25.562 Pain in left knee; R10.9 Unspecified abdominal pain; K58.9 Irritable bowel syndrome, unspecified; F41.0 Panic disorder [episodic paroxysmal anxiety]; F31.9 Bipolar disorder, unspecified; F41.9 Anxiety disorder, unspecified; F42.9 Obsessive-compulsive disorder, unspecified; F03.90 Unspecified dementia, unspecified severity, without behavioral disturbance, psychotic disturbance, mood disturbance, and anxiety; F17.210 Nicotine dependence, cigarettes, uncomplicated; Z20.822 Contact with and (suspected) exposure to COVID-19; Z79.82 Long term (current) use of aspirin; Z79.890 Hormone replacement therapy; Z79.899 Other long term (current) drug therapy; Z88.1 Allergy status to other antibiotic agents; Z88.3 Allergy status to other anti-infective agents; Z88.0 Allergy status to penicillin; Z16.22 Resistance to vancomycin related antibiotics; Z71.6 Tobacco abuse counseling; Z90.49 Acquired absence of other specified parts of digestive tract; Z98.84 Bariatric surgery status; Z98.51 Tubal ligation status; Z87.01 Personal history of pneumonia (recurrent); Z86.19 Personal history of other infectious and parasitic diseases; Z87.19 Personal history of other diseases of the digestive system; Z87.440 Personal history of urinary (tract) infections; Z98.42 Cataract extraction status, left eye; Z98.41 Cataract extraction status, right eye; Z98.890 Other specified postprocedural states; Z80.42 Family history of malignant neoplasm of prostate; Z80.8 Family history of malignant neoplasm of other organs or systems; Z82.0 Family history of epilepsy and other diseases of the nervous system
CPT/HCPCS: 96360; 96361; 99285; 36415; 93005; 93017; 93306; 83880; 80053; 83735; 84100; 84484; 85025; 85610; 85730; 87635; 71046; 78452; G0378; A9500; J2785

== ENCOUNTER → 2022-06-23 | Outpatient (CLI) | payer MEDICARE ==
--- NOTE | 2022-06-23 14:59 | P.HPBAR ---
Bariatric H&P - History & Physicial H&P Date: 06/23/22 History & Physicial: Visit/CC: Patient initial contact: Initial weight: 59.562 kg Initial weight in pounds: Height: Initial BMI: Last weight: Current weight: Current weight in pounds: Current BMI: [place] body weight (based on NIH guidelines): Excess body weight loss: The patient is a 77 year-old F who presents for Bariatric Assessment. Patient presents today for bariatric follow-up. She is appears history of LAP-BAND surgery. Patient has had some dysphagia. Past Medical History Past Medical History: Dementia, GERD/Reflux, Hyperlipidemia, Hypertension, Osteoarthritis (OA), Pneumonia, Thyroid Disorder, Vascular Disorder Additional Past Medical History / Comment(s): Chronic abdominal pain, IBS/colitis, gastritis, chronic low back and bilateral knee pain, recent L lower leg swelling at times, UTIs, bronchitis/recently approximately 2 weeks ago, past elevated LFTs, scarlet fever as a child. History of Any Multi-Drug Resistant Organisms: VRE Year Discovered:: 01/17/19 MDRO Source:: urine Past Surgical History: Appendectomy, Cholecystectomy, Hernia Repair, Tonsillectomy, Tubal Ligation Additional Past Surgical History / Comment(s): lap band, ventral hernia repair, incisional hernia repairs, EGD, colonoscopy, D&Cs, bilateral cataract removals. Past Anesthesia/Blood Transfusion Reactions: No Reported Reaction Additional Past Anesthesia/Blood Transfusion Reaction / Comm: No blood transfusion to date Smoking Status: Current every day smoker - Past Family History Father Family Medical History: Cancer Additional Family Medical History / Comment(s): Prostate and bone cancer Mother Family Medical History: Dementia Surgical - Exam - General well developed, well nourished, no distress - Eyes PERRL - ENT normal pinna - Neck no masses - Respiratory normal expansion - Cardiovascular Rhythm: regular - Abdomen Abdomen: soft, non tender Bariatric Assessment & Plan Plan: Patient LAP-BAND was adjusted. She had 1 mL removed from the band. She currently has an empty band. She'll follow-up in 4 weeks. Bariatric Checklist Checklist: Plan: Checklist: EGD: 1. Hiatal hernia: 2. H. Pylori: HgbA1c: Vitamin D: Smoking: Current every day smoker Primary care physician referral: [facility] Psychiatry clearance: Cardiology clearance: Sleep study: Diet journal: VTE risk score: VTE risk level: Rehab needs at discharge:
[2022-06-23 15:25] VITALS: BP 170/91; PULSE 61; RESP 16; TEMP 98.3; BMI 26.9
== END | disposition home or self-care (01) ==
LOC: BARWHC3 13:36
PROVIDERS: ATTEND Surgery
DX: Z48.815 Encounter for surgical aftercare following surgery on the digestive system (principal)
CPT/HCPCS: 99212

== ENCOUNTER → 2022-07-21 | Outpatient (CLI) | payer MEDICARE ==
[2022-07-21 14:07] VITALS: BP 179/73; PULSE 60; RESP 12; TEMP 98.1; BMI 27.7
--- NOTE | 2022-07-21 15:08 | P.HPBAR ---
Bariatric H&P - History & Physicial H&P Date: 07/21/22 History & Physicial: Visit/CC: follow up Patient initial contact: Initial weight: 59.562 kg Initial weight in pounds: 131.31 Height: 5 ft Initial BMI: 25.6 Last weight: Current weight: 64.41 kg Current weight in pounds: 142.00 Current BMI: 27.7 [place] body weight (based on NIH guidelines): 45.359 kg Excess body weight loss: The patient is a 77 year-old F who presents for Bariatric Assessment. She presents today for LAP-BAND follow-up. Her current weight is 142 pounds. She presumably 138 pounds. She has minimal GERD. Past Medical History Past Medical History: Dementia, GERD/Reflux, Hyperlipidemia, Hypertension, Osteoarthritis (OA), Pneumonia, Thyroid Disorder, Vascular Disorder Additional Past Medical History / Comment(s): Chronic abdominal pain, IB S/colitis, gastritis, chronic low back and bilateral knee pain, recent L lower leg swelling at times, UTIs, bronchitis/recently approximately 2 weeks ago, past elevated LFTs, scarlet fever as a child. 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 Past Anesthesia/Blood Transfusion Reactions: No Reported Reaction Additional Past Anesthesia/Blood Transfusion Reaction / Comm: No blood transfusion to date Past Psychological History: Anxiety, Bipolar, Depression, Panic Disorder Additional Psychological History / Comment(s): OCD. Pt resides with a roomate. She has a cane but does not use it often. She drives Smoking Status: Current every day smoker Past Alcohol Use History: None Reported Additional Past Alcohol Use History / Comment(s): STARTED SMOKING AT AGE 18 DOWN TO 1/2 PPD (on and off) Past Drug Use History: None Reported Additional Drug Use History / Comment(s): 1/2 pack /day x 50 years (off and on) - Past Family History Father Family Medical History: Cancer Additional Family Medical History / Comment(s): Prostate and bone cancer Mother Family Medical History: Dementia Surgical - Exam Vital Signs Temp Pulse Resp BP 98.1 F 60 12 179/73 07/21/22 13:59 07/21/22 13:59 07/21/22 13:59 07/21/22 13:59 - General well developed, well nourished, no distress - Eyes PERRL - ENT normal pinna - Neck no masses - Respiratory normal expansion - Cardiovascular Rhythm: regular - Abdomen Abdomen: soft, non tender Bariatric Assessment & Plan Plan: Patient's GERD is minimal and will be observed. Explain the patient's she's lost in maintained over 90 pounds weight loss over 20 years. The patient is almost 78 years old. She is doing quite well. She will follow-up in 4 weeks. Bariatric Checklist Checklist: Plan: Checklist: EGD: 1. Hiatal hernia: 2. H. Pylori: HgbA1c: Vitamin D: Smoking: Current every day smoker Primary care physician referral: [facility] Psychiatry clearance: Cardiology clearance: Sleep study: Diet journal: VTE risk score: VTE risk level: Rehab needs at discharge:
== END ==
LOC: BARWHC3 13:25
PROVIDERS: ATTEND Surgery
DX: Z09 Encounter for follow-up examination after completed treatment for conditions other than malignant neoplasm (principal); Z98.84 Bariatric surgery status; E66.01 Morbid (severe) obesity due to excess calories; Z68.27 Body mass index [BMI] 27.0-27.9, adult
CPT/HCPCS: 99211

== ENCOUNTER → 2022-08-11 | Outpatient (CLI) | payer MEDICARE ==
--- NOTE | 2022-08-11 14:52 | P.HPBAR ---
Bariatric H&P - History & Physicial H&P Date: 08/11/22 History & Physicial: Visit/CC: Patient initial contact: Initial weight: 59.562 kg Initial weight in pounds: Height: Initial BMI: Last weight: Current weight: Current weight in pounds: Current BMI: [place] body weight (based on NIH guidelines): Excess body weight loss: The patient is a 77 year-old F who presents for Bariatric Assessment. Patient presents today for bariatric follow-up. She states she thinks she is in a good zone. She has had some minimal GERD. She denies any vomiting. Past Medical History Past Medical History: Dementia, GERD/Reflux, Hyperlipidemia, Hypertension, Osteoarthritis (OA), Pneumonia, Thyroid Disorder, Vascular Disorder Additional Past Medical History / Comment(s): Chronic abdominal pain, IBS/colitis, gastritis, chronic low back and bilateral knee pain, recent L lower leg swelling at times, UTIs, bronchitis/recently approximately 2 weeks ago, past elevated LFTs, scarlet fever as a child. 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 Past Anesthesia/Blood Transfusion Reactions: No Reported Reaction Additional Past Anesthesia/Blood Transfusion Reaction / Comm: No blood transfusion to date Past Psychological History: Anxiety, Bipolar, Depression, Panic Disorder Additional Psychological History / Comment(s): OCD. Pt resides with a roomate. She has a cane but does not use it often. She drives Smoking Status: Current every day smoker Past Alcohol Use History: None Reported Additional Past Alcohol Use History / Comment(s): STARTED SMOKING AT AGE 18 DOWN TO 1/2 PPD (on and off) Past Drug Use History: None Reported Additional Drug Use History / Comment(s): 1/2 pack /day x 50 years (off and on) - Past Family History Father Family Medical History: Cancer Additional Family Medical History / Comment(s): Prostate and bone cancer Mother Family Medical History: Dementia Surgical - Exam - General well developed, well nourished, no distress - Eyes PERRL - ENT normal pinna - Neck no masses - Respiratory normal expansion - Cardiovascular Rhythm: regular - Abdomen Abdomen: soft, non tender Bariatric Assessment & Plan Plan: Status post lap band procedure. Patient appears to be in a good zone. She is gained 4 pounds her last visit. She is GERD is minimal and will be observed. Bariatric Checklist Checklist: Plan: Checklist: EGD: 1. Hiatal hernia: 2. H. Pylori: HgbA1c: Vitamin D: Smoking: Current every day smoker Primary care physician referral: [facility] Psychiatry clearance: Cardiology clearance: Sleep study: Diet journal: VTE risk score: VTE risk level: Rehab needs at discharge:
[2022-08-11 14:55] VITALS: BP 166/81; PULSE 58; RESP 16; TEMP 98.4; BMI 28.5
== END ==
LOC: BARWHC3 13:56
PROVIDERS: ATTEND Surgery
DX: Z48.815 Encounter for surgical aftercare following surgery on the digestive system (principal); E66.01 Morbid (severe) obesity due to excess calories; Z68.28 Body mass index [BMI] 28.0-28.9, adult; Z98.84 Bariatric surgery status; Z88.0 Allergy status to penicillin; Z88.1 Allergy status to other antibiotic agents; F17.200 Nicotine dependence, unspecified, uncomplicated
CPT/HCPCS: 99211

== ENCOUNTER → 2022-09-22 | Outpatient (CLI) | payer MEDICARE ==
[2022-09-22 14:12] VITALS: BP 171/72; PULSE 54; TEMP 98.8; BMI 29.9
--- NOTE | 2022-10-06 15:46 | P.HPBAR ---
Bariatric H&P - History & Physicial H&P Date: 09/22/22 History & Physicial: Visit/CC: lap band Patient initial contact: Initial weight: 59.562 kg Initial weight in pounds: 131.31 Height: 5 ft Initial BMI: 25.6 Last weight: Current weight: 69.4 kg Current weight in pounds: 153.00 Current BMI: 29.9 [place] body weight (based on NIH guidelines): 45.359 kg Excess body weight loss: The patient is a 77 year-old F who presents for Bariatric Assessment. Patient resents today for LAP-BAND follow-up. She's had some minimal GERD. She's requesting a fill of her band. Past Medical History Past Medical History: Dementia, GERD/Reflux, Hyperlipidemia, Hypertension, Osteoarthritis (OA), Pneumonia, Thyroid Disorder, Vascular Disorder Additional Past Medical History / Comment(s): Chronic abdominal pain, IBS/colitis, gastritis, chronic low back and bilateral knee pain, recent L lower leg swelling at times, UTIs, bronchitis/recently approximately 2 weeks ago, past elevated LFTs, scarlet fever as a child. 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 Past Anesthesia/Blood Transfusion Reactions: No Reported Reaction Additional Past Anesthesia/Blood Transfusion Reaction / Comm: No blood transfusion to date Past Psychological History: Anxiety, Bipolar, Depression, Panic Disorder Additional Psychological History / Comment(s): OCD. Pt resides with a roomate. She has a cane but does not use it often. She drives Smoking Status: Current every day smoker Past Alcohol Use History: None Reported Additional Past Alcohol Use History / Comment(s): STARTED SMOKING AT AGE 18 DOWN TO 1/2 PPD (on and off) Past Drug Use History: None Reported Additional Drug Use History / Comment(s): 1/2 pack /day x 50 years (off and on) - Past Family History Father Family Medical History: Cancer Additional Family Medical History / Comment(s): Prostate and bone cancer Mother Family Medical History: Dementia Surgical - Exam Vital Signs Temp Pulse BP 98.8 F 54 L 171/72 09/22/22 14:10 09/22/22 14:10 09/22/22 14:10 - General well developed, well nourished, no distress - Eyes PERRL - ENT normal pinna - Neck no masses - Respiratory normal expansion - Cardiovascular Rhythm: regular - Abdomen Abdomen: soft, non tender Bariatric Assessment & Plan Plan: The patient's band was not filled due to the patient's GERD symptoms. Patient will be observed. She'll follow-up in one month. Bariatric Checklist Checklist: Plan: Checklist: EGD: 1. Hiatal hernia: 2. H. Pylori: HgbA1c: Vitamin D: Smoking: Current every day smoker Primary care physician referral: Vicky Psychiatry clearance: Cardiology clearance: Sleep study: Diet journal: VTE risk score: VTE risk level: Rehab needs at discharge:
== END | disposition home or self-care (01) ==
LOC: BARWHC3 13:30
PROVIDERS: ATTEND Surgery
DX: E66.01 Morbid (severe) obesity due to excess calories (principal); Z46.51 Encounter for fitting and adjustment of gastric lap band; K21.9 Gastro-esophageal reflux disease without esophagitis; E78.5 Hyperlipidemia, unspecified; I10 Essential (primary) hypertension; M19.90 Unspecified osteoarthritis, unspecified site; J18.9 Pneumonia, unspecified organism; E07.9 Disorder of thyroid, unspecified; F03.90 Unspecified dementia, unspecified severity, without behavioral disturbance, psychotic disturbance, mood disturbance, and anxiety; Z90.49 Acquired absence of other specified parts of digestive tract; F17.200 Nicotine dependence, unspecified, uncomplicated; Z68.29 Body mass index [BMI] 29.0-29.9, adult
CPT/HCPCS: 99211

== ENCOUNTER 2022-10-05 21:40 | Emergency (ER) | payer MEDICARE ==
--- NOTE | 2022-10-05 21:48 | ED ---
Chest Pain HPI - General Stated Complaint: Chest Pain Time Seen by Provider: 10/05/22 21:43 Source: RN notes reviewed, old records reviewed Limitations: no limitations - History of Present Illness Initial Comments: This is a 77-year-old female to the ER today. This patient is presenting for evaluation regards to chest pain. Chest pain over from sleep with left-sided mild in nature but did come for concern for heart heart evaluation. No travel history no sick contacts no fever no cough no congestion no shortness of breath MD Complaint: chest pain -: minutes(s) Onset: during rest, during exertion Pain Location: substernal Pain Radiation: none Severity: moderate Severity scale (1-10): 4 Quality: tightness, heaviness Consistency: constant Improves With: nothing Worsens With: nothing Context: recent travel Anginal Symptoms: nausea, vomiting Other Symptoms: cough Treatments Prior to Arrival: none - Related Data Home Medications Medication Instructions Recorded Confirmed Omeprazole 20 mg PO DAILY 09/29/19 09/22/22 busPIRone HCL 10 mg PO BID 11/09/19 09/22/22 Aspirin EC [Ecotrin Low Dose] 81 mg PO DAILY 08/23/21 09/22/22 FLUoxetine HCL 40 mg PO DAILY 08/23/21 09/22/22 Furosemide [Lasix] 20 mg PO DAILY 08/23/21 09/22/22 HYDROcodone/APAP 7.5-325MG [[place] 1 tab PO TID 08/23/21 09/22/22 7.5-325] Lactulose [Constulose] 10 gm PO DAILY PRN 08/23/21 09/22/22 Loperamide HCl [Imodium A-D] 2 mg PO DAILY 08/23/21 09/22/22 Melatonin 5 mg PO HS 08/23/21 09/22/22 Multivit with Calcium,Iron,Min 1 tab PO DAILY 08/23/21 09/22/22 [Women's Multivitamin] OLANZapine [ZyPREXA] 10 mg PO HS 08/23/21 09/22/22 Oxybutynin ER [Ditropan Xl] 10 mg PO DAILY 08/23/21 09/22/22 Propranolol [Inderal] 20 mg PO BID 08/23/21 09/22/22 QUEtiapine [SEROquel] 75 mg PO HS 08/23/21 09/22/22 Tiotropium 2.5 Mcg/Puff [Spiriva 2 puff INHALATION RT-DAILY 08/23/21 09/22/22 Respimat 2.5 Mcg] hydrOXYzine pamoate [Vistaril] 25 mg PO BID 08/23/21 09/22/22 Cider Vinegar [Apple Cider Vinegar] 1 tab PO DAILY 08/11/22 09/22/22 Ergocalciferol [Vitamin D2 (1250 1,250 mcg PO WEEKLY 08/11/22 09/22/22 Mcg = 78231 Iu)] Losartan/Hydrochlorothiazide 1 tab PO DAILY 08/11/22 09/22/22 [Losartan-Hctz 100-12.5 mg Tab] Allergies Allergy/AdvReac Type Severity Reaction Status Date / Time ciprofloxacin [From Cipro] Allergy Severe Itching Verified 07/21/22 14:00 amoxicillin Allergy Unknown Verified 07/21/22 14:00 cefuroxime Allergy Itching Verified 07/21/22 14:00 clindamycin Allergy Unknown Verified 07/21/22 14:00 metronidazole Allergy Unknown Verified 07/21/22 14:00 Review of Systems ROS Statement: Those systems with pertinent positive or pertinent negative responses have been documented in the HPI. ROS Other: All systems not noted in ROS Statement are negative. EKG Findings - EKG Comments: EKG Findings:: EKG is sinus bradycardia 54 HI 212 QRS 97 QTC 436 Past Medical History Past Medical History: Dementia, GERD/Reflux, Hyperlipidemia, Hypertension, Osteoarthritis (OA), Pneumonia, Thyroid Disorder, Vascular Disorder Additional Past Medical History / Comment(s): Chronic abdominal pain, IBS/colitis, gastritis, chronic low back and bilateral knee pain, recent L lower leg swelling at times, UTIs, bronchitis/recently approximately 2 weeks ago, past elevated LFTs, scarlet fever as a child. 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 Past Anesthesia/Blood Transfusion Reactions: No Reported Reaction Additional Past Anesthesia/Blood Transfusion Reaction / Comment(s): No blood transfusion to date Past Psychological History: Anxiety, Bipolar, Depression, Panic Disorder Additional Psychological History / Comment(s): OCD. Pt resides with a roomate. She has a cane but does not use it often. She drives Smoking Status: Current every day smoker Past Alcohol Use History: None Reported Additional Past Alcohol Use History / Comment(s): STARTED SMOKING AT AGE 18 DOWN TO 1/2 PPD (on and off) Past Drug Use History: None Reported Additional Drug Use History / Comment(s): 1/2 pack /day x 50 years (off and on) - Past Family History Father Family Medical History: Cancer Additional Family Medical History / Comment(s): Prostate and bone cancer Mother Family Medical History: Dementia General Exam General appearance: alert, in no apparent distress Head exam: Present: atraumatic, normocephalic, normal inspection Eye exam: Present: normal appearance, PERRL, EOMI. Absent: scleral icterus, conjunctival injection, periorbital swelling ENT exam: Present: normal exam, mucous membranes moist Neck exam: Present: normal inspection. Absent: tenderness, meningismus, lympha denopathy Respiratory exam: Present: normal lung sounds bilaterally. Absent: respiratory distress, wheezes, rales, rhonchi, stridor Cardiovascular Exam: Present: regular rate, normal rhythm, normal heart sounds. Absent: systolic murmur, diastolic murmur, rubs, gallop, clicks GI/Abdominal exam: Present: soft, normal bowel sounds. Absent: distended, tenderness, guarding, rebound, rigid Extremities exam: Present: normal inspection, full ROM, normal capillary refill. Absent: tenderness, pedal edema, joint swelling, calf tenderness Back exam: Present: normal inspection Neurological exam: Present: alert, oriented X3, CN II-XII intact Psychiatric exam: Present: normal affect, normal mood Skin exam: Present: warm, dry, intact, normal color. Absent: rash Course Vital Signs 10/05/22 21:44 Temperature 98.0 F Pulse Rate 53 L Respiratory 16 Rate Blood Pressure 191/77 O2 Sat by Pulse 98 Oximetry - Reevaluation(s) Reevaluation #1: 10/05/22 22:24 Medical records reviewed Reevaluation #2: 10/05/22 22:24 Patient still with persistent chest pain here in the ER Reevaluation #3: 10/05/22 23:56 Patient remains without chest pain throughout ER stay Reevaluation #4: 10/05/22 22:25 Differential Chest Pain: Stable Angina, Unstable Angina, STEMI, NSTEMI Aortic Dissection, Pneumothorax, Musculoskeletal, Esophageal Spasm GERD, Cholecystitis, Pancreatitis, Zoster, this is not meant to be an all-inclusive list. Reevaluation #5: 10/05/22 22:25 Was pt. sent in by a medical professional or institution? @ -[by , PA, THERAPY COORDINATOR, urgent care, hospital, or fpc] Did you speak to anyone other than the patient for history? @ -[EMS, parent, family, police, friend?] Did you review nursing and triage notes? @ -[agree or disagree, why?] Were old charts reviewed? @ -[outside hosp., previous admissions, EMS record, old EKG, old radiological studies, urgent care reports/EKGs, fpc records?] Differential Diagnosis? @ -[chest pain, altered mental status abdominal pain women, abdominal pain men, vaginal bleeding, weakness, fever, dyspnea, syncope, headache, dizziness, GI bleed, back pain, seizure] EKG interpreted by me (3pts min.)? @ -[none] X-rays interpreted by me (1pt min.)? @ -[none] CT interpreted by me (1pt min.)? @ -[none] U/S interpreted by me (1pt. min.)? @ -[none] What testing was considered but not performed? (CT, X-rays, U/S, labs)? Why? @ [CT, X-rays, U/S, labs? Why?] What meds were considered but not given? Why? @ -[none] Did you discuss the management of the patient with other professionals? @ -[professionals i.e. , PA, THERAPY COORDINATOR, Lab, RT, Psych Nurse, Travel Registered Nurse Nicu, Human Resources Support Specialist, Teacher, Communications Project Manager, telephonic case manager? Give summary] Did you reconcile home meds? @ -[none] Was smoking cessation discussed for >3mins.? @ -[none] Was critical care preformed (if so, how long)? @ -[none] Were there social determinants of health that impacted care today? How? (Homelessness, low income, unemployed, alcoholism, drug addiction, transportati on, low edu. Level, literacy, decrease access to med. care, group home, rehab)? @ -[Homelessness, low income, unemployed, alcoholism, drug addiction, transportation, low edu. Level, literacy, decrease access to med. care, group home, rehab?] Was there de-escalation of care discussed even if they declined? (Discuss DNR or withdrawal of care, Hospice)? @ -[Discuss DNR or withdrawal of care, Hospice?] What co-morbidities impacted this encounter? (DM, HTN, Smoking, COPD, CAD, Cancer, CVA, Hep., AIDS, mental health diagnosis, sleep apnea, morbid obesity)? @ -[DM, HTN, Smoking, COPD, CAD, Cancer, CVA, Hep., AIDS, mental health diagnosis, sleep apnea, morbid obesity?] Was patient admitted / discharged? @ -[hospital course] Undiagnosed new problem with uncertain prognosis? @ -[none] Drug Therapy requiring intensive monitoring for toxicity (Heparin, Nitro, Insulin, Cardizem)? @ -[none] Were any procedures done? @ -[none] Diagnosis/symptom? @ -[default] Acute, or Chronic, or Acute on Chronic? @ -[default] Uncomplicated (without systemic symptoms) or Complicated (systemic symptoms)? @ -[default] Side effects of treatment? @ -[none] Exacerbation, Progression, or Severe Exacerbation] @ -[no] Poses a threat to life or bodily function? @ -[no] Chest Pain MDM - MDM 77 female nonspecific chest pain. Patient coming in with chest pain concern for chest pain multiple cholesterol today. No cause found here in the ER testing is negative patient has no pain currently and can be discharged home Disposition Clinical Impression: Chest pain Disposition: HOME SELF-CARE Condition: Good Instructions (If sedation given, give patient instructions): Chest Pain (ED) Is patient prescribed a controlled substance at d/c from ED?: No Referrals: Bright Forte MD [Primary Care Provider] - 1-2 days Time of Disposition: 23:55
[2022-10-05 21:49] VITALS: BP 191/77; PULSE 53; RESP 16; TEMP 98
[2022-10-05 22:15] LABS: Basophils # (A) 0.1 k/uL (0-0.2); Basophils % (A) 1 %; Eosinophils % (A) 1 %; HCT 36.7 % (34.0-46.0); HGB 12.7 gm/dL (11.4-16.0); Lymphocytes # (A) 2.6 k/uL (1.0-4.8); Lymphocytes % (A) 49 %; MCH 32.1 pg (25.0-35.0); MCHC 34.6 g/dL (31.0-37.0); MCV 92.8 fL (80.0-100.0); Monocytes # (A) 0.4 k/uL (0-1.0); Monocytes % (A) 8 %; Neutrophils % (A) 38 %; Platelet Count 183 k/uL (150-450); RBC 3.95 m/uL (3.80-5.40); RDW 13.3 % (11.5-15.5); WBC 5.2 k/uL (3.8-10.6)
[2022-10-05 22:30] LABS: INR 0.9 (<1.2); Partial Thromboplastin Time 25.2 sec (22.0-30.0); Prothrombin Time 9.7 sec (9.0-12.0)
[2022-10-05 22:34] LABS: Potassium 3.9 mmol/L (3.5-5.1)
[2022-10-05 22:35] LABS: Albumin 3.4 g/dL (3.5-5.0); Total Bilirubin 0.3 mg/dL (0.2-1.3); Total Protein 5.8 g/dL (6.3-8.2)
--- NOTE | 2022-10-05 22:58 | XR ---
EXAMINATION TYPE: XR chest 2V DATE OF EXAM: 10/05/2022 COMPARISON: 08/23/2021 HISTORY: Chest pain TECHNIQUE: FINDINGS: There is no heart failure nor confluent pneumonic infiltrate. Costophrenic angles are clear . Bony thorax is intact. There are chest leads. Thoracic aorta is atheromatous. IMPRESSION: No active cardiopulmonary disease. No change.
== END 2022-10-06 00:06 | disposition home or self-care (01) ==
LOC: EC 21:40
DX: R07.9 Chest pain, unspecified (principal); I10 Essential (primary) hypertension; K21.9 Gastro-esophageal reflux disease without esophagitis; M19.90 Unspecified osteoarthritis, unspecified site; F17.200 Nicotine dependence, unspecified, uncomplicated; Z79.82 Long term (current) use of aspirin; Z79.899 Other long term (current) drug therapy; Z88.0 Allergy status to penicillin; Z88.1 Allergy status to other antibiotic agents
CPT/HCPCS: 36415; 71046; 80053; 83690; 83735; 83880; 84484; 85025; 85610; 85730; 93005; 99285

== ENCOUNTER → 2022-10-27 | Outpatient (CLI) | payer MEDICARE ==
[2022-10-27 13:33] VITALS: BP 171/76; PULSE 67; RESP 16; TEMP 97.8; BMI 29.7
--- NOTE | 2022-11-25 12:30 | P.HPBAR ---
Bariatric H&P - History & Physicial H&P Date: 10/27/22 History & Physicial: Visit/CC: Band ADJ Patient initial contact: Initial weight: 59.562 kg Initial weight in pounds: 131.31 Height: 5 ft Initial BMI: 25.6 Last weight: Current weight: 68.946 kg Current weight in pounds: 152.00 Current BMI: 29.7 [place] body weight (based on NIH guidelines): 45.359 kg Excess body weight loss: The patient is a 77 year-old F who presents for Bariatric Assessment. Patient presents today for Silva follow-up. She's requesting a fill of her band. She currently feels hungry. Past Medical History Past Medical History: Dementia, GERD/Reflux, Hyperlipidemia, Hypertension, Osteoarthritis (OA), Pneumonia, Thyroid Disorder, Vascular Disorder Additional Past Medical History / Comment(s): Chronic abdominal pain, IBS/colitis, gastritis, chronic low back and bilateral knee pain, recent L lower leg swelling at times, UTIs, bronchitis/recently approximately 2 weeks ago, past elevated LFTs, scarlet fever as a child. 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 Past Anesthesia/Blood Transfusion Reactions: No Reported Reaction Additional Past Anesthesia/Blood Transfusion Reaction / Comm: No blood transfusion to date Past Psychological History: Anxiety, Bipolar, Depression, Panic Disorder Additional Psychological History / Comment(s): OCD. Pt resides with a roomate. She has a cane but does not use it often. She drives Smoking Status: Current every day smoker Past Alcohol Use History: None Reported Additional Past Alcohol Use History / Comment(s): STARTED SMOKING AT AGE 18 DOWN TO 1/2 PPD (on and off) Past Drug Use History: None Reported Additional Drug Use History / Comment(s): 1/2 pack /day x 50 years (off and on) - Past Family History Father Family Medical History: Cancer Additional Family Medical History / Comment(s): Prostate and bone cancer Mother Family Medical History: Dementia Surgical - Exam Vital Signs Temp Pulse Resp BP 97.8 F 67 16 171/76 10/27/22 13:30 10/27/22 13:30 10/27/22 13:30 10/27/22 13:30 - General well developed, well nourished, no distress - Eyes PERRL - ENT normal pinna - Neck no masses - Respiratory normal expansion - Cardiovascular Rhythm: regular - Abdomen Abdomen: soft, non tender Bariatric Assessment & Plan Plan: Patient's LAP-BAND was adjusted. She had 0.5 mL added to the band. She'll follow-up in 4 weeks. Bariatric Checklist Checklist: Plan: Checklist: EGD: 1. Hiatal hernia: 2. H. Pylori: HgbA1c: Vitamin D: Smoking: Current every day smoker Primary care physician referral: V[facility] Psychiatry clearance: Cardiology clearance: Sleep study: Diet journal: VTE risk score: VTE risk level: Rehab needs at discharge:
== END ==
LOC: BARWHC3 13:10
PROVIDERS: ATTEND Surgery
DX: E66.01 Morbid (severe) obesity due to excess calories (principal); F03.90 Unspecified dementia, unspecified severity, without behavioral disturbance, psychotic disturbance, mood disturbance, and anxiety; I73.9 Peripheral vascular disease, unspecified; K21.9 Gastro-esophageal reflux disease without esophagitis; E78.5 Hyperlipidemia, unspecified; I10 Essential (primary) hypertension; M19.90 Unspecified osteoarthritis, unspecified site; J18.9 Pneumonia, unspecified organism; E07.9 Disorder of thyroid, unspecified; Z68.29 Body mass index [BMI] 29.0-29.9, adult; Z88.1 Allergy status to other antibiotic agents; Z88.0 Allergy status to penicillin; F17.210 Nicotine dependence, cigarettes, uncomplicated
CPT/HCPCS: 99212

== ENCOUNTER → 2022-11-10 | Outpatient (CLI) | payer MEDICARE ==
[2022-11-10 14:05] VITALS: PULSE 88; TEMP 98.4; BMI 29.7
[2022-11-10 14:07] VITALS: BP 183/91
--- NOTE | 2022-11-25 10:59 | P.HPBAR ---
Bariatric H&P - History & Physicial H&P Date: 11/10/22 History & Physicial: Visit/CC: lap band adj Patient initial contact: Initial weight: 59.562 kg Initial weight in pounds: 131.31 Height: 5 ft Initial BMI: 25.6 Last weight: Current weight: 68.946 kg Current weight in pounds: 152.00 Current BMI: 29.7 [place] body weight (based on NIH guidelines): 45.359 kg Excess body weight loss: The patient is a 77 year-old F who presents for Bariatric Assessment. Patient presents today for LAP-BAND adjustment. She requested fill her band. She currently feels hungry. Past Medical History Past Medical History: Dementia, GERD/Reflux, Hyperlipidemia, Hypertension, Osteoarthritis (OA), Pneumonia, Thyroid Disorder, Vascular Disorder Additional Past Medical History / Comment(s): Chronic abdominal pain, IBS/colitis, gastritis, chronic low back and bilateral knee pain, recent L lower leg swelling at times, UTIs, bronchitis/recently approximately 2 weeks ago, past elevated LFTs, scarlet fever as a child. 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 Past Anesthesia/Blood Transfusion Reactions: No Reported Reaction Additional Past Anesthesia/Blood Transfusion Reaction / Comm: No blood transfusion to date Past Psychological History: Anxiety, Bipolar, Depression, Panic Disorder Additional Psychological History / Comment(s): OCD. Pt resides with a roomate. She has a cane but does not use it often. She drives Smoking Status: Current every day smoker Past Alcohol Use History: None Reported Additional Past Alcohol Use History / Comment(s): STARTED SMOKING AT AGE 18 DOWN TO 1/2 PPD (on and off) Past Drug Use History: None Reported Additional Drug Use History / Comment(s): 1/2 pack /day x 50 years (off and on) - Past Family History Father Family Medical History: Cancer Additional Family Medical History / Comment(s): Prostate and bone cancer Mother Family Medical History: Dementia Surgical - Exam Vital Signs Temp Pulse BP 98.4 F 88 183/91 11/10/22 14:00 11/10/22 14:00 11/10/22 14:00 - General well developed, well nourished - Eyes PERRL - ENT normal pinna - Neck no masses - Respiratory normal expansion - Cardiovascular Rhythm: regular - Abdomen Abdomen: soft, non tender Bariatric Assessment & Plan Plan: Patient's LAP-BAND was adjusted. She had 0.4 mL added to the band. She was ill drink water without difficulty. She'll follow-up in 4 weeks. Bariatric Checklist Checklist: Plan: Checklist: EGD: 1. Hiatal hernia: 2. H. Pylori: HgbA1c: Vitamin D: Smoking: Current every day smoker Primary care physician referral: V[facility] Psychiatry clearance: Cardiology clearance: Sleep study: Diet journal: VTE risk score: VTE risk level: Rehab needs at discharge:
== END ==
LOC: BARWHC3 13:34
PROVIDERS: ATTEND Surgery
DX: E66.01 Morbid (severe) obesity due to excess calories (principal); K21.9 Gastro-esophageal reflux disease without esophagitis; E78.5 Hyperlipidemia, unspecified; I10 Essential (primary) hypertension; M19.90 Unspecified osteoarthritis, unspecified site; F17.200 Nicotine dependence, unspecified, uncomplicated; Z68.29 Body mass index [BMI] 29.0-29.9, adult; Z46.51 Encounter for fitting and adjustment of gastric lap band; Z88.1 Allergy status to other antibiotic agents; Z88.0 Allergy status to penicillin
CPT/HCPCS: 99212

== ENCOUNTER → 2022-12-08 | Outpatient (CLI) | payer MEDICARE ==
[2022-12-08 13:16] VITALS: BP 184/98; PULSE 59; TEMP 97.9; BMI 29.6
--- NOTE | 2023-02-10 09:05 | P.HPBAR ---
Bariatric H&P - History & Physicial H&P Date: 12/08/22 History & Physicial: Visit/CC: lap band Patient initial contact: Initial weight: 59.562 kg Initial weight in pounds: 131.31 Height: 5 ft Initial BMI: 25.6 Last weight: Current weight: 68.901 kg Current weight in pounds: 151.90 Current BMI: 29.6 [place] body weight (based on NIH guidelines): 45.359 kg Excess body weight loss: The patient is a 77 year-old F who presents for Bariatric Assessment. Patient presents today for LAP-BAND follow-up. She's requesting a fill of her band. She is currently hungry. Past Medical History Past Medical History: Dementia, GERD/Reflux, Hyperlipidemia, Hypertension, Osteoarthritis (OA), Pneumonia, Thyroid Disorder, Vascular Disorder Additional Past Medical History / Comment(s): Chronic abdominal pain, IBS/colitis, gastritis, chronic low back and bilateral knee pain, recent L lower leg swelling at times, UTIs, bronchitis/recently approximately 2 weeks ago, past elevated LFTs, scarlet fever as a child. 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 Past Anesthesia/Blood Transfusion Reactions: No Reported Reaction Additional Past Anesthesia/Blood Transfusion Reaction / Comm: No blood transfusion to date Past Psychological History: Anxiety, Bipolar, Depression, Panic Disorder Additional Psychological History / Comment(s): OCD. Pt resides with a roomate. She has a cane but does not use it often. She drives Smoking Status: Current every day smoker Past Alcohol Use History: None Reported Additional Past Alcohol Use History / Comment(s): STARTED SMOKING AT AGE 18 DOWN TO 1/2 PPD (on and off) Past Drug Use History: None Reported Additional Drug Use History / Comment(s): 1/2 pack /day x 50 years (off and on) - Past Family History Father Family Medical History: Cancer Additional Family Medical History / Comment(s): Prostate and bone cancer Mother Family Medical History: Dementia Surgical - Exam Vital Signs Temp Pulse BP 97.9 F 59 L 184/98 12/08/22 13:13 12/08/22 13:13 12/08/22 13:13 - General well developed, well nourished, no distress - Eyes PERRL - Abdomen Abdomen: soft, non tender Bariatric Assessment & Plan Plan: Patient's LAP-BAND was adjusted. She had 0.2 mL at the pressure is 1.7 mL in the band. She'll follow-up in 4 weeks. Bariatric Checklist Checklist: Plan: Checklist: EGD: 1. Hiatal hernia: 2. H. Pylori: HgbA1c: Vitamin D: Smoking: Current every day smoker Primary care physician referral: [facility] Psychiat[facility] clearance: Cardiology clearance: Sleep study: Diet journal: VTE risk score: VTE risk level: Rehab needs at discharge:
== END ==
LOC: BARWHC3 13:07
PROVIDERS: ATTEND Surgery
DX: E66.01 Morbid (severe) obesity due to excess calories (principal); Z46.51 Encounter for fitting and adjustment of gastric lap band; F17.200 Nicotine dependence, unspecified, uncomplicated; K21.9 Gastro-esophageal reflux disease without esophagitis; E78.5 Hyperlipidemia, unspecified; I10 Essential (primary) hypertension; M19.90 Unspecified osteoarthritis, unspecified site; Z68.29 Body mass index [BMI] 29.0-29.9, adult; Z88.1 Allergy status to other antibiotic agents; Z88.0 Allergy status to penicillin; Z88.8 Allergy status to other drugs, medicaments and biological substances
CPT/HCPCS: 99212

== ENCOUNTER → 2023-01-26 | Outpatient (CLI) | payer MEDICARE ==
[2023-01-26 13:19] VITALS: BP 156/76; PULSE 56; TEMP 98.9; BMI 36.3
--- NOTE | 2023-02-10 12:03 | P.HPBAR ---
Bariatric H&P - History & Physicial H&P Date: 01/26/23 History & Physicial: Visit/CC: lap band removal Patient initial contact: Initial weight: 59.562 kg Initial weight in pounds: 131.31 Height: 5 ft Initial BMI: 25.6 Last weight: Current weight: 84.368 kg Current weight in pounds: 186.00 Current BMI: 36.3 [place] body weight (based on NIH guidelines): 45.359 kg Excess body weight loss: The patient is a 77 year-old F who presents for Bariatric Assessment. Patient presents today for bariatric follow-up. She has lost 6 pounds since her last visit. She's had some minimal GERD. Past Medical History Past Medical History: Dementia, GERD/Reflux, Hyperlipidemia, Hypertension, Osteoarthritis (OA), Pneumonia, Thyroid Disorder, Vascular Disorder Additional Past Medical History / Comment(s): Chronic abdominal pain, IBS/colitis, gastritis, chronic low back and bilateral knee pain, recent L lower leg swelling at times, UTIs, bronchitis/recently approximately 2 weeks ago, past elevated LFTs, scarlet fever as a child. 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 Past Anesthesia/Blood Transfusion Reactions: No Reported Reaction Additional Past Anesthesia/Blood Transfusion Reaction / Comm: No blood transfusion to date Smoking Status: Current every day smoker - Past Family History Father Family Medical History: Cancer Additional Family Medical History / Comment(s): Prostate and bone cancer Mother Family Medical History: Dementia Surgical - Exam Vital Signs Temp Pulse BP 98.9 F 56 L 156/76 01/26/23 13:16 01/26/23 13:16 01/26/23 13:16 - General well developed, well nourished - Eyes PERRL - ENT normal nares - Neck no masses - Respiratory normal expansion - Cardiovascular Rhythm: regular - Abdomen Abdomen: soft, non tender Bariatric Assessment & Plan Plan: Patient's lap band was not adjusted this visit. She's had excellent weight loss since her last visit. She will follow-up in 4 weeks. Her GERD is minimal and will be observed. Bariatric Checklist Checklist: Plan: Checklist: EGD: 1. Hiatal hernia: 2. H. Pylori: HgbA1c: Vitamin D: Smoking: Current every day smoker Primary care physician referral: [facility] Psychiatry clearance: Cardiology clearance: Sleep study: Diet journal: VTE risk score: VTE risk level: Rehab needs at discharge:
== END ==
LOC: BARWHC3 12:56
PROVIDERS: ATTEND Surgery
DX: E66.01 Morbid (severe) obesity due to excess calories (principal); K21.9 Gastro-esophageal reflux disease without esophagitis; E78.5 Hyperlipidemia, unspecified; I10 Essential (primary) hypertension; M19.90 Unspecified osteoarthritis, unspecified site; F17.200 Nicotine dependence, unspecified, uncomplicated; Z98.84 Bariatric surgery status; Z68.36 Body mass index [BMI] 36.0-36.9, adult; Z88.1 Allergy status to other antibiotic agents; Z88.0 Allergy status to penicillin; Z88.8 Allergy status to other drugs, medicaments and biological substances
CPT/HCPCS: 99211

== ENCOUNTER → 2023-01-29 | Outpatient (CLI) | payer MEDICARE ==
--- NOTE | 2023-02-02 17:52 | MR ---
EXAMINATION TYPE: MR lumbar spine wo con DATE OF EXAM: 01/29/2023 COMPARISON: 12/31/2018 HISTORY: 77-year-old female M54.5 Lower back pain. Hx cyst removed 2001. TECHNIQUE: Multiplanar, multisequence images of the lumbar spine were acquired without IV contrast. FINDINGS: Vertebral body heights are preserved. No suspicious bone marrow replacement. There are some edematous Modic type I endplate change off to the right particularly at L2-L3. There is secondary to a levoconvex scoliosis of the lumbar spine. Advanced hypertrophic facet arthropathy throughout with degenerative grade 1 retrolisthesis from T12- L1, L1-L2, and L2-L3. Degenerative grade 1, nearly grade 2 anterolisthesis at L3-L4 and L4-L5. Mild to moderate multilevel degenerative disc disease with desiccation, narrowing, and bulging disks throughout. Scattered ligamentous thickening is present. 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 Conus medullaris is normal. Overall changes result in a focal moderate to severe spinal canal stenosis at L3-L4, slightly worsene d from 2018. Moderate overall spinal canal stenosis at L2-L3. Mild at L1-L2 and L4-L5. On the right, overall changes result in a moderate neuroforaminal stenosis at L3-L4 and mild at L2-L3 and L4-L5. On the left, changes result in moderate neural foraminal stenosis at L3-L4 and moderate to severe at L4-L5. Mild L5-S1 and L2-L3. Multiple renal cysts are demonstrated measuring up to 4.3 cm. IMPRESSION: 1. Degenerated levoconvex scoliosis of the lumbar spine with moderate multilevel spondylotic change. There is resultant edematous Modic type I endplate change towards the right at L2-L3. 2. Degenerative grade 1 retrolisthesis from T12 through L3 levels. Degenerative grade 1, nearly grade 2 anterolisthesis at both L3-L4 and L4-L5. 3. Changes result in focal moderate to severe spinal canal stenosis at L3-L4, slightly worsened from 2018. Moderate overall spinal canal stenosis at L2-L3. Mild at L1-L2 and L4-L5. 4. Variable neuroforaminal stenoses as outlined above. Moderate to severe on the left at L4-L5. Moder ate on both sides at L3-L4.
== END | disposition home or self-care (01) ==
LOC: RADMRIMAIN 11:13
PROVIDERS: ATTEND Family Medicine
DX: M47.26 Other spondylosis with radiculopathy, lumbar region (principal); M51.16 Intervertebral disc disorders with radiculopathy, lumbar region; M46.06 Spinal enthesopathy, lumbar region; M99.73 Connective tissue and disc stenosis of intervertebral foramina of lumbar region; M43.16 Spondylolisthesis, lumbar region; M43.14 Spondylolisthesis, thoracic region
CPT/HCPCS: 72148

== ENCOUNTER → 2023-02-23 | Outpatient (CLI) | payer MEDICARE ==
[2023-02-23 13:24] VITALS: BP 134/74; PULSE 52; TEMP 98.1; BMI 28.5
--- NOTE | 2023-03-17 08:42 | P.HPBAR ---
Bariatric H&P - History & Physicial H&P Date: 02/23/23 History & Physicial: Visit/CC: lap band Patient initial contact: Initial weight: 59.562 kg Initial weight in pounds: 131.31 Height: 5 ft Initial BMI: 25.6 Last weight: Current weight: 66.224 kg Current weight in pounds: 146.00 Current BMI: 28.5 [place] body weight (based on NIH guidelines): 45.359 kg Excess body weight loss: The patient is a 77 year-old F who presents for Bariatric Assessment. Patient resents today for bariatric follow-up. She is some minimal GERD. Her weight is remain stable. Past Medical History Past Medical History: Dementia, GERD/Reflux, Hyperlipidemia, Hypertension, Osteoarthritis (OA), Pneumonia, Thyroid Disorder, Vascular Disorder Additional Past Medical History / Comment(s): Chronic abdominal pain, IBS/colitis, gastritis, chronic low back and bilateral knee pain, recent L lower leg swelling at times, UTIs, bronchitis/recently approximately 2 weeks ago, past elevated LFTs, scarlet fever as a child. 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 Past Anesthesia/Blood Transfusion Reactions: No Reported Reaction Additional Past Anesthesia/Blood Transfusion Reaction / Comm: No blood transfusion to date Past Psychological History: Anxiety, Bipolar, Depression, Panic Disorder Additional Psychological History / Comment(s): OCD. Pt resides with a roomate. She has a cane but does not use it often. She drives Smoking Status: Current every day smoker Past Alcohol Use History: None Reported Additional Past Alcohol Use History / Comment(s): STARTED SMOKING AT AGE 18 DOWN TO 1/2 PPD (on and off) Past Drug Use History: None Reported Additional Drug Use History / Comment(s): 1/2 pack /day x 50 years (off and on) - Past Family History Father Family Medical History: Cancer Additional Family Medical History / Comment(s): Prostate and bone cancer Mother Family Medical History: Dementia Surgical - Exam Vital Signs Temp Pulse BP 98.1 F 52 L 134/74 02/23/23 13:18 02/23/23 13:18 02/23/23 13:18 - General well developed, well nourished, no distress - Eyes PERRL - ENT normal pinna - Neck no masses - Abdomen Abdomen: soft, non tender Bariatric Assessment & Plan Plan: Status post lap band procedure. Patient's weight is stable. Her GERD is minimal will be observed. No adjustment was made her band. Bariatric Checklist Checklist: Plan: Checklist: EGD: 1. Hiatal hernia: 2. H. Pylori: HgbA1c: Vitamin D: Smoking: Current every day smoker Primary care physician referral: [facility] Psychiatry clearance: Cardiology clearance: Sleep study: Diet journal: VTE risk score: VTE risk level: Rehab needs at discharge:
== END ==
LOC: BARWHC3 12:51
PROVIDERS: ATTEND Surgery
DX: E66.01 Morbid (severe) obesity due to excess calories (principal); K21.9 Gastro-esophageal reflux disease without esophagitis; E78.5 Hyperlipidemia, unspecified; I10 Essential (primary) hypertension; M19.90 Unspecified osteoarthritis, unspecified site; E07.9 Disorder of thyroid, unspecified; G89.29 Other chronic pain; F03.90 Unspecified dementia, unspecified severity, without behavioral disturbance, psychotic disturbance, mood disturbance, and anxiety; F17.210 Nicotine dependence, cigarettes, uncomplicated; Z68.28 Body mass index [BMI] 28.0-28.9, adult; Z88.0 Allergy status to penicillin; Z88.1 Allergy status to other antibiotic agents; Z88.8 Allergy status to other drugs, medicaments and biological substances; Z79.82 Long term (current) use of aspirin
CPT/HCPCS: 99211

== ENCOUNTER 2023-03-20 13:17 | Inpatient (IN) | payer MEDICARE ==
--- NOTE | 2023-03-20 13:41 | ED ---
General Adult HPI - General Chief complaint: Altered Mental Status Stated complaint: AMS Time Seen by Provider: 03/20/23 13:21 Source: patient, EMS, RN notes reviewed Mode of arrival: EMS Limitations: no limitations - History of Present Illness Initial comments: Patient is a pleasant 77-year-old female presenting to emergency Department with fatigue and drowsiness. Symptoms have progressed over the past 4 days. Patient is unable to walk back up her stairs today was feels generally weak. Patient feels tired and fatigued. No confusion or isolated area of weakness. No history of similar symptoms previously. - Related Data Home Medications Medication Instructions Recorded Confirmed busPIRone HCL 10 mg PO BID 11/09/19 03/20/23 Aspirin EC [Ecotrin Low Dose] 81 mg PO HS 08/23/21 03/20/23 FLUoxetine HCL 40 mg PO DAILY 08/23/21 03/20/23 Furosemide [Lasix] 20 mg PO DAILY PRN 08/23/21 03/20/23 HYDROcodone/APAP 7.5-325MG [[place] 1 tab PO TID 08/23/21 03/20/23 7.5-325] Lactulose [Constulose] 10 gm PO DAILY PRN 08/23/21 03/20/23 Loperamide HCl [Imodium A-D] 2 mg PO DAILY 08/23/21 03/20/23 Melatonin 5 mg PO HS 08/23/21 03/20/23 Multivit with Calcium,Iron,Min 1 tab PO DAILY 08/23/21 03/20/23 [Women's Multivitamin] OLANZapine [ZyPREXA] 10 mg PO HS 08/23/21 03/20/23 Propranolol [Inderal] 20 mg PO BID 08/23/21 03/20/23 QUEtiapine [SEROquel] 75 mg PO HS 08/23/21 03/20/23 Tiotropium 2.5 Mcg/Puff [Spiriva 2 puff INHALATION RT-DAILY PRN 08/23/21 03/20/23 Respimat 2.5 Mcg] hydrOXYzine pamoate [Vistaril] 25 mg PO BID 08/23/21 03/20/23 Ergocalciferol [Vitamin D2 (1250 1,250 mcg PO SA 08/11/22 03/20/23 Mcg = 32797 Iu)] Losartan/Hydrochlorothiazide 1 tab PO DAILY 08/11/22 03/20/23 [Losartan-Hctz 100-12.5 mg Tab] Allergies Allergy/AdvReac Type Severity Reaction Status Date / Time ciprofloxacin [From Cipro] Allergy Severe Itching Verified 03/20/23 15:12 amoxicillin Allergy Unknown Verified 03/20/23 15:12 benztropine Allergy Unknown Verified 03/20/23 15:12 cefuroxime Allergy Itching Verified 03/20/23 15:12 clavulanic acid Allergy Unknown Verified 03/20/23 15:12 [From Augmentin] clindamycin Allergy Unknown Verified 03/20/23 15:12 metronidazole Allergy Unknown Verified 03/20/23 15:12 Review of Systems ROS Statement: Those systems with pertinent positive or pertinent negative responses have been documented in the HPI. ROS Other: All systems not noted in ROS Statement are negative. Constitutional: Denies: fever Eyes: Denies: eye pain ENT: Denies: ear pain Respiratory: Denies: cough, dyspnea Cardiovascular: Denies: chest pain Endocrine: Reports: fatigue Gastrointestinal: Denies: abdominal pain Genitourinary: Denies: urgency Neurological: Reports: as per HPI, weakness. Denies: headache Past Medical History Past Medical History: Dementia, GERD/Reflux, Hyperlipidemia, Hypertension, Osteoarthritis (OA), Pneumonia, Thyroid Disorder, Vascular Disorder Additional Past Medical History / Comment(s): Chronic abdominal pain, IBS/colitis, gastritis, chronic low back and bilateral knee pain, recent L lower leg swelling at times, UTIs, bronchitis/recently approximately 2 weeks ago, past elevated LFTs, scarlet fever as a child. 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 Past Anesthesia/Blood Transfusion Reactions: No Reported Reaction Additional Past Anesthesia/Blood Transfusion Reaction / Comment(s): No blood transfusion to date Past Psychological History: Anxiety, Bipolar, Depression, Panic Disorder Smoking Status: Current every day smoker Past Alcohol Use History: None Reported Past Drug Use History: None Reported - Past Family History Father Family Medical History: Cancer Additional Family Medical History / Comment(s): Prostate and bone cancer Mother Family Medical History: Dementia General Exam Limitations: no limitations General appearance: in no apparent distress, other (Drowsy but arousable to voice) Head exam: Present: atraumatic, normocephalic Eye exam: Present: normal appearance, PERRL, EOMI ENT exam: Present: normal oropharynx Neck exam: Present: normal inspection Respiratory exam: Present: normal lung sounds bilaterally Cardiovascular Exam: Present: regular rate, normal rhythm GI/Abdominal exam: Present: soft. Absent: tenderness Extremities exam: Present: normal inspection Neurological exam: Present: oriented X3, CN II-XII intact, other (Drowsy but arousable to voice). Absent: motor sensory deficit Expanded Neurological exam: Present: protecting the airway Patient oriented to: Present: person, place, time Speech: Present: fluid speech Cranial nerves: EOM's Intact: Normal Motor strength exam: RUE: 5, LUE: 5, RLE: 5, LLE: 5 Eye Response: (3) open to voice Motor Response: (6) obeys commands Verbal Response: (5) oriented Psychiatric exam: Present: normal affect, normal mood Skin exam: Present: normal color Course Vital Signs 03/20/23 03/20/23 03/20/23 13:19 13:22 13:26 Temperature 98.5 F Pulse Rate 62 64 64 Respiratory 16 16 16 Rate Blood Pressure 130/64 130/64 130/64 O2 Sat by Pulse 97 97 97 Oximetry 03/20/23 14:22 Temperature Pulse Rate 65 Respiratory 16 Rate Blood Pressure 148/67 O2 Sat by Pulse 98 Oximetry EKG Findings - EKG Results: EKG: interpreted by ERMD (T wave inversion V1 through V3), sinus rhythm, normal axis, normal QRS Medical Decision Making - Medical Decision Making Was pt. sent in by a medical professional or institution (, PA, PHOTOGRAPHER STILL, urgent care, hospital, or half-way...) When possible be specific @ -No Did you speak to anyone other than the patient for history (EMS, parent, family, police, friend...)? What history was obtained from this source @ -EMS does help provide history as patient is somewhat a poor historian Did you review nursing and triage notes (agree or disagree)? Why? @ -I reviewed and agree with nursing and triage notes Were old charts reviewed (outside hosp., previous admission, EMS record, old EKG, old radiological studies, urgent care reports/EKG's, half-way records)? Report findings @ -No old charts were reviewed Differential Diagnosis (chest pain, altered mental status, abdominal pain women, abdominal pain men, vaginal bleeding, weakness, fever, dyspnea, syncope, headache, dizziness, GI bleed, back pain, seizure, CVA, palpatations, mental health, musculoskeletal)? @ -Differential Altered Mental Status: Hypoglycemia, DKA, hypercapnia, ETOH, overdose, CO poisoning, trauma, myxedema coma, HTN encephalopathy, infection, encephalitis, psychosis, intercranial hemorrhage, hepatic encephalopathy, meningitis, CVA, this is not meant to be an all-inclusive list EKG interpreted by me (3pts min.). @ -As above X-rays interpreted by me (1pt min.). @ -Chest x-ray shows no acute process CT interpreted by me (1pt min.). @ -Report reviewed U/S interpreted by me (1pt. min.). @ -None done What testing was considered but not performed or refused? (CT, X-rays, U/S, labs)? Why? @ -None What meds were considered but not given or refused? Why? @ -None Did you discuss the management of the patient with other professionals (professionals i.e. , PA, PHOTOGRAPHER STILL, lab, RT, psych nurse, social media content manager, medical chief technician, teacher, low altitude air defense officer, immigration case worker)? Give summary @ -Case was discussed with Dr. Morgan, who will admit covered Was smoking cessation discussed for >3mins.? @ -No Was critical care preformed (if so, how long)? @ -No Were there social determinants of health that impacted care today? How? (Homelessness, low income, unemployed, alcoholism, drug addiction, transportation, low edu. Level, literacy, decrease access to med. care, fdc, rehab)? @ -No Was there de-escalation of care discussed even if they declined (Discuss DNR or withdrawal of care, Hospice)? DNR status @ -No What co-morbidities impacted this encounter? (DM, HTN, Smoking, COPD, CAD, Cancer, CVA, ARF, Chemo, Hep., AIDS, mental health diagnosis, sleep apnea, morbid obesity)? @ -None Was patient admitted / discharged? Hospital course, mention meds given and route, prescriptions, significant lab abnormalities, going to OR and other pertinent info. @ -Patient reevaluated. Patient will be admitted patient resents with new acute kidney injury with urinary tract infection and hyponatremia. Patient also has elevated troponin of uncertain etiology. Patient will have consult placed with nephrology and cardiology Undiagnosed new problem with uncertain prognosis? @ -No Drug Therapy requiring intensive monitoring for toxicity (Heparin, Nitro, Insulin, Cardizem)? @ -No Were any procedures done? @ -No Diagnosis/symptom? @ -Acute kidney injury, urinary tract infection, hyponatremia, elevated troponin Acute, or Chronic, or Acute on Chronic? @ -Acute, acute, acute, acute Uncomplicated (without systemic symptoms) or Complicated (systemic symptoms)? @ -default Side effects of treatment? @ -No Exacerbation, Progression, or Severe Exacerbation? @ -No Poses a threat to life or bodily function? How? (Chest pain, [place], NC, pneumonia, PE, COPD, DKA, ARF, appy, cholecystitis, CVA, Diverticulitis, Homicidal, Suicidal, threat to staff... and all critical care pts) @ -No - Lab Data Result diagrams: 03/20/23 13:48 03/20/23 13:48 Lab Results 03/20/23 03/20/23 03/20/23 Range/Units 13:48 13:48 13:48 WBC 12.5 H (3.8-10.6) k/uL RBC 3.89 (3.80-5.40) m/uL Hgb 12.9 (11.4-16.0) gm/dL Hct 38.3 (34.0-46.0) % MCV 98.5 (80.0-100.0) fL MCH 33.2 (25.0-35.0) pg MCHC 33.8 (31.0-37.0) g/dL RDW 13.6 (11.5-15.5) % Plt Count 79 L (150-450) k/uL MPV 9.1 Neutrophils % 81 % Lymphocytes % 8 % Monocytes % 6 % Eosinophils % 0 % Basophils % 0 % Neutrophils # 10.1 H (1.3-7.7) k/uL Lymphocytes # 1.1 (1.0-4.8) k/uL Monocytes # 0.8 (0-1.0) k/uL Eosinophils # 0.0 (0-0.7) k/uL Basophils # 0.0 (0-0.2) k/uL Manual Slide Review Performed RBC Morphology Normal PT 10.2 (9.0-12.0) sec INR 1.0 (<1.2) APTT 25.2 (22.0-30.0) sec Sodium (137-145) mmol/L Potassium (3.5-5.1) mmol/L Chloride (98-107) mmol/L Carbon Dioxide (22-30) mmol/L Anion Gap mmol/L BUN (7-17) mg/dL Creatinine (0.52-1.04) mg/dL Est GFR (CKD-EPI)AfAm (>60 ml/min/1.73 sqM) Est GFR (CKD-EPI)NonAf (>60 ml/min/1.73 sqM) Glucose (74-99) mg/dL Calcium (8.4-10.2) mg/dL Total Bilirubin (0.2-1.3) mg/dL AST (14-36) U/L ALT (4-34) U/L Alkaline Phosphatase (38-126) U/L Troponin I (0.000-0.034) ng/mL Total Protein (6.3-8.2) g/dL Albumin (3.5-5.0) g/dL Urine Color Urine Appearance (Clear) Urine pH (5.0-8.0) Ur Specific [place] (1.001-1.035) Urine Protein (Negative) Urine Glucose (UA) (Negative) Urine Ketones (Negative) Urine Blood (Negative) Urine Nitrite (Negative) Urine Bilirubin (Negative) Urine Urobilinogen (<2.0) mg/dL Ur Leukocyte Esterase (Negative) Urine RBC (0-5) /hpf Urine WBC (0-5) /hpf Urine WBC Clumps (None) /hpf Amorphous Sediment (None) /hpf Urine Bacteria (None) /hpf Urine Opiates Screen Detected H (NotDetected) Ur Oxycodone Screen Not Detected (NotDetected) Urine Methadone Screen Not Detected (NotDetected) Ur Propoxyphene Screen Not Detected (NotDetected) Ur Barbiturates Screen Not Detected (NotDetected) U Tricyclic Antidepress Detected H (NotDetected) Ur Phencyclidine Scrn Not Detected (NotDetected) Ur Amphetamines Screen Not Detected (NotDetected) U Methamphetamines Scrn Not Detected (NotDetected) U Benzodiazepines Scrn Detected H (NotDetected) Urine Cocaine Screen Not Detected (NotDetected) U Marijuana (THC) Screen Not Detected (NotDetected) 03/20/23 03/20/23 03/20/23 Range/Units 13:48 13:48 13:48 WBC (3.8-10.6) k/uL RBC (3.80-5.40) m/uL Hgb (11.4-16.0) gm/dL Hct (34.0-46.0) % MCV (80.0-100.0) fL MCH (25.0-35.0) pg MCHC (31.0-37.0) g/dL RDW (11.5-15.5) % Plt Count (150-450) k/uL MPV Neutrophils % % Lymphocytes % % Monocytes % % Eosinophils % % Basophils % % Neutrophils # (1.3-7.7) k/uL Lymphocytes # (1.0-4.8) k/uL Monocytes # (0-1.0) k/uL Eosinophils # (0-0.7) k/uL Basophils # (0-0.2) k/uL Manual Slide Review RBC Morphology PT (9.0-12.0) sec INR (<1.2) APTT (22.0-30.0) sec Sodium 124 L (137-145) mmol/L Potassium 2.9 L (3.5-5.1) mmol/L Chloride 90 L (98-107) mmol/L Carbon Dioxide 25 (22-30) mmol/L Anion Gap 9 mmol/L BUN 49 H (7-17) mg/dL Creatinine 2.38 H (0.52-1.04) mg/dL Est GFR (CKD-EPI)AfAm 22 (>60 ml/min/1.73 sqM) Est GFR (CKD-EPI)NonAf 19 (>60 ml/min/1.73 sqM) Glucose 80 (74-99) mg/dL Calcium 8.0 L (8.4-10.2) mg/dL Total Bilirubin 1.4 H (0.2-1.3) mg/dL AST 25 (14-36) U/L ALT 29 (4-34) U/L Alkaline Phosphatase 120 (38-126) U/L Troponin I 0.106 H* (0.000-0.034) ng/mL Total Protein 4.9 L (6.3-8.2) g/dL Albumin 2.6 L (3.5-5.0) g/dL Urine Color Yellow Urine Appearance Cloudy H (Clear) Urine pH 6.0 (5.0-8.0) Ur Specific [place] 1.016 (1.001-1.035) Urine Protein 2+ H (Negative) Urine Glucose (UA) Negative (Negative) Urine Ketones Negative (Negative) Urine Blood Small H (Negative) Urine Nitrite Positive H (Negative) Urine Bilirubin Negative (Negative) Urine Urobilinogen 3.0 (<2.0) mg/dL Ur Leukocyte Esterase Large H (Negative) Urine RBC 8 H (0-5) /hpf Urine WBC >182 H (0-5) /hpf Urine WBC Clumps Many H (None) /hpf Amorphous Sediment Occasional H (None) /hpf Urine Bacteria Rare H (None) /hpf Urine Opiates Screen (NotDetected) Ur Oxycodone Screen (NotDetected) Urine Methadone Screen (NotDetected) Ur Propoxyphene Screen (NotDetected) Ur Barbiturates Screen (NotDetected) U Tricyclic Antidepress (NotDetected) Ur Phencyclidine Scrn (NotDetected) Ur Amphetamines Screen (NotDetected) U Methamphetamines Scrn (NotDetected) U Benzodiazepines Scrn (NotDetected) Urine Cocaine Screen (NotDetected) U Marijuana (THC) Screen (NotDetected) Disposition Clinical Impression: Acute kidney injury, Urinary tract infection, Hyponatremia, Elevated troponin Disposition: ADMITTED IP TO THIS HOSP Condition: Serious Is patient prescribed a controlled substance at d/c from ED?: No Referrals: None,Stated [Primary Care Provider] - 1-2 days Time of Disposition: 15:42
[2023-03-20 14:05] LABS: Basophils % (A) 0 %; Eosinophils % (A) 0 %; HCT 38.3 % (34.0-46.0); HGB 12.9 gm/dL (11.4-16.0); Lymphocytes # (A) 1.1 k/uL (1.0-4.8); Lymphocytes % (A) 8 %; MCH 33.2 pg (25.0-35.0); MCHC 33.8 g/dL (31.0-37.0); MCV 98.5 fL (80.0-100.0); Mean Platelet Volume 9.1; Monocytes # (A) 0.8 k/uL (0-1.0); Monocytes % (A) 6 %; Neutrophils # (A) 10.1 k/uL (1.3-7.7); Neutrophils % (A) 81 %; RBC 3.89 m/uL (3.80-5.40); RDW 13.6 % (11.5-15.5); WBC 12.5 k/uL (3.8-10.6)
[2023-03-20 14:12] LABS: Partial Thromboplastin Time 25.2 sec (22.0-30.0); Prothrombin Time 10.2 sec (9.0-12.0)
--- NOTE | 2023-03-20 14:19 | CT ---
EXAMINATION TYPE: CT brain wo con DATE OF EXAM: 03/20/2023 COMPARISON: 04/21/2020 INDICATION: Altered mental status DLP: 1098.4 mGycm, Automated exposure control for dose reduction was used. CONTRAST: None CT of the brain is performed utilizing 3 mm thick sections through the posterior fossa and 3 mm thick sections through the remaining calvarium. Study is performed within 24 hours of arrival to the hosp [facility]. No abnormal hyperdensity is present to suggest an acute intracranial hemorrhage. No mass lesion is evident. No acute infarcts are evident. Mild periventricular white matter hypodensities present, likely on the basis of chronic white matter ischemic changes. Some prominence of the extra-axial spaces greater in frontal regions is present. Ventricles and sulci are prominent for the patient age. Paranasal sinuses and mastoid air cells within the [id number] are clear. IMPRESSIONS: 1. Atrophy with mild chronic white changes
--- NOTE | 2023-03-20 14:27 | XR ---
EXAMINATION TYPE: XR chest 2V DATE OF EXAM: 03/20/2023 COMPARISON: 10/05/2022 INDICATION: Altered mental status TECHNIQUE: Frontal and lateral views of the chest are obtained. FINDINGS: The heart size is normal. The pulmonary vasculature is normal. The lungs are clear. IMPRESSION: 1. No acute pulmonary process.
[2023-03-20 14:28] LABS: ALT 29 U/L (4-34); AST 25 U/L (14-36); African American GFR (CKD) 22 (>60 ml/min/1.73 sqM); Albumin 2.6 g/dL (3.5-5.0); Alkaline Phosphatase 120 U/L (38-126); Anion Gap 9 mmol/L; Blood Urea Nitrogen 49 mg/dL (7-17); Carbon Dioxide 25 mmol/L (22-30); Chloride 90 mmol/L (98-107); Glucose 80 mg/dL (74-99); Non-African American GFR(CKD) 19 (>60 ml/min/1.73 sqM); Potassium 2.9 mmol/L (3.5-5.1); Sodium 124 mmol/L (137-145); Total Bilirubin 1.4 mg/dL (0.2-1.3); Total Protein 4.9 g/dL (6.3-8.2)
[2023-03-20 14:33] LABS: Platelet Count 79 k/uL (150-450)
[2023-03-20 14:35] LABS: RBC Morphology Normal
[2023-03-20 14:46] LABS: Amorphous Sediment,Urine Occasional /hpf; Appearance,Urine Cloudy (Clear); Bacteria,Urine Rare /hpf; Bilirubin,Urine Negative (Negative); Blood,Urine Small (Negative); Color,Urine Yellow; Glucose,Urine (UA) Negative (Negative); Ketones,Urine Negative (Negative); Leukocyte Esterase,Urine Large (Negative); Nitrite,Urine Positive (Negative); Protein,Urine 2+ (Negative); RBC,Urine 8 /hpf (0-5); Specific Gravity,Urine 1.016 (1.001-1.035); WBC,Urine >182 /hpf (0-5)
[2023-03-20 14:48] LABS: Amphetamine Screen,Urine Not Detected (NotDetected); Barbiturate Screen,Urine Not Detected (NotDetected); Benzodiazepines Screen,Urine Detected (NotDetected); Cocaine Screen,Urine Not Detected (NotDetected); Methadone Screen, Urine Not Detected (NotDetected); Opiate Screen,Urine Detected (NotDetected); Oxycodone Screen, Urine Not Detected (NotDetected); Phencyclidine Screen,Urine Not Detected (NotDetected); Tricyclic Antidepressant,Urine Detected (NotDetected); Urn Cannabinoid Scrn Not Detected (NotDetected)
[2023-03-20] MEDS ORDERED: NALOXONE 0.4 MG/ML 1 ML VIAL IV PRN (15:44)
[2023-03-20] MEDS ORDERED: ASPIRIN 81 MG PO STA (15:46)
[2023-03-20] MEDS ORDERED: SODIUM CHLORIDE 0.9% 500 ML 500 ML IV STA (15:46)
[2023-03-20] MEDS ORDERED: LEVOFLOXACIN 500MG-D5W PMX 500 MG in DEXTROSE/WATER 1 100ML.BAG IVPB SCH (16:00)
[2023-03-20] MEDS ORDERED: POTASSIUM CHLORIDE ER 20 MEQ TAB.ER PO STA (16:17)
[2023-03-20] MEDS ORDERED: IPRATROPIUM 0.5 MG/2.5 ML NEBU INHALATION PRN (16:23)
[2023-03-20] MEDS: SODIUM CHLORIDE 0.9% 1,000 ML IV SCH (16:28)
[2023-03-20] MEDS: ASPIRIN 81 MG PO SCH (20:09)
[2023-03-20] MEDS: FAMOTIDINE 20 MG TAB PO SCH (20:09)
[2023-03-20] MEDS: PROPRANOLOL 20 MG TAB PO SCH (20:09)
[2023-03-20] MEDS: HYDROcodone/APAP 7.5-325MG 1 EACH TAB PO SCH (20:09)
[2023-03-20] MEDS ORDERED: FAMOTIDINE 20 MG TAB PO SCH (21:00)
[2023-03-20] MEDS ORDERED: QUEtiapine 25 MG TAB PO SCH (21:00)
--- NOTE | 2023-03-21 02:47 | HP ---
HISTORY AND PHYSICAL CHIEF COMPLAINT: Change in mental status, fatigue and toxins. HISTORY OF PRESENT ILLNESS: This is a 77-year-old woman with past medical history of multiple medical problems including hypertension, hyperlipidemia, who is progressively getting fatigued and the patient is also mildly confused also. The patient came to [facility]. The patient was found to have some dehydration and weakness. Creatinine is elevated at 2.3. Troponin is also elevated at 0.1. The patient also had features of UTI and also the patient had hypernatremia. The patient was admitted for further evaluation and treatment. Also history was taken from my discussion with staff, ER physician as well as family at the bedside. PAST MEDICAL HISTORY: Reviewed. Includes dementia, GERD. Rest of the history and rest of the chart is also reviewed. HOME MEDICATIONS: Reviewed include buspirone. Dose and rest of medications noted. ALLERGIES: Cipro. FAMILY HISTORY: History of cancer in the family. SOCIAL HISTORY: History of smoking. REVIEW OF SYSTEMS: A 14-point review is negative except as mentioned earlier. PHYSICAL EXAMINATION: VITAL SIGNS: Pulse is 65, blood pressure 148/69, respirations 16. HEENT: Conjunctivae normal. Oral mucosa is dry. NECK: No jugular venous distention. CARDIOVASCULAR: S1 and S2 muffled. RESPIRATORY: A few scattered rhonchi. No crackles. ABDOMEN: Soft. LEGS: No edema. NERVOUS SYSTEM: Diffusely weak. SKIN: No ulcer, rash, or bleeding. JOINTS: No active deforming arthropathy. LABORATORY DATA: Labs are reviewed. ASSESSMENT: 1. Acute urinary tract infection with possible sepsis present on admission. 2. Dehydration with acute renal failure, acute tubular necrosis, present on admission. 3. Troponin 0.106, indeterminate, present on admission. Rule out acute myocardial infarction. 4. Hypernatremia. 5. Hypokalemia. 6. Increased WBC. 7. Dementia. 8. Hypertension. 9. Hyperlipidemia. 10.Multiple complex medical issues. 11.Full code. RECOMMENDATIONS: This is a 77-year-old woman who presented with multiple complex medical issues, we will monitor the patient closely. I would recommend cautious hydration, IV antibiotics. Nephrology and Cardiology consultations. Resume the home medications, antiplatelet agents. Prognosis guarded because of multiple complex medical issues. Further recommendation to follow. See orders for details. MMODL / IJN: [id number] /
[2023-03-21] MEDS: SODIUM CHLORIDE 0.9% 1,000 ML IV SCH ×2 (07:01→09:42)
[2023-03-21 08:20] LABS: Basophils # (A) 0.1 k/uL (0-0.2); Basophils % (A) 1 %; Eosinophils % (A) 0 %; HCT 41.6 % (34.0-46.0); HGB 13.3 gm/dL (11.4-16.0); Hypochromasia Slight; Lymphocytes # (A) 0.7 k/uL (1.0-4.8); Lymphocytes % (A) 7 %; MCH 32.7 pg (25.0-35.0); MCHC 31.9 g/dL (31.0-37.0); MCV 102.7 fL (80.0-100.0); Macrocytosis Slight; Mean Platelet Volume 8.5; Monocytes # (A) 0.7 k/uL (0-1.0); Monocytes % (A) 6 %; Neutrophils # (A) 9.5 k/uL (1.3-7.7); Neutrophils % (A) 84 %; RBC 4.05 m/uL (3.80-5.40); RDW 13.7 % (11.5-15.5); WBC 11.3 k/uL (3.8-10.6)
[2023-03-21 08:33] LABS: ALT 26 U/L (4-34); African American GFR (CKD) 27 (>60 ml/min/1.73 sqM); Albumin 2.5 g/dL (3.5-5.0); Anion Gap 12 mmol/L; Blood Urea Nitrogen 53 mg/dL (7-17); Carbon Dioxide 19 mmol/L (22-30); Chloride 96 mmol/L (98-107); Glucose 50 mg/dL (74-99); Non-African American GFR(CKD) 24 (>60 ml/min/1.73 sqM); Sodium 127 mmol/L (137-145); Total Bilirubin 1.4 mg/dL (0.2-1.3)
[2023-03-21 08:38] LABS: AST 30 U/L (14-36); Alkaline Phosphatase 122 U/L (38-126); Magnesium 1.9 mg/dL (1.6-2.3); Platelet Count 81 k/uL (150-450); Potassium 3.4 mmol/L (3.5-5.1)
[2023-03-21] MEDS ORDERED: Potassium Replacement Protocol 1 EACH MISC MISCELLANE PRN (08:54)
[2023-03-21] MEDS ORDERED: ERGOCALCIFEROL 1,250 MCG (50,000 IU) CAPSULE PO SCH (09:00)
[2023-03-21] MEDS ORDERED: FLUoxetine HCL 20 MG CAP PO SCH (09:00)
[2023-03-21] MEDS: POTASSIUM CHLORIDE ER 20 MEQ TAB.ER PO SCH (09:39)
[2023-03-21] MEDS: MULTIVITAMINS, THERA 1 EACH TAB PO SCH (09:39)
[2023-03-21] MEDS: PROPRANOLOL 20 MG TAB PO SCH ×2 (09:40→19:56)
[2023-03-21] MEDS: LOPERAMIDE 2 MG CAP PO SCH (09:40)
[2023-03-21] MEDS: HYDROcodone/APAP 7.5-325MG 1 EACH TAB PO SCH (09:41)
--- NOTE | 2023-03-21 10:27 | P.NPCON ---
History of Present Illness - Reason for Consult acute renal failure - History of Present Illness Reason for consultation: Acute kidney injury History of present illness: Patient is a 77-year-old female seen in renal consultation for acute kidney injury. Patient's creatinine as of 10/05/2022 was 0.89. It was elevated at 2.3 at this admission and is 1.98 today. Patient came to the hospital due to fatig ue and weakness. Patient states she has been able to walk or do any of her usual daily activities. Oral intake has been poor since Thursday. She denies vomiting or diarrhea. Denies hematuria. She did require straight catheterization last night. She was on losartan, thiazide diuretic as well as Lasix outpatient which are all currently held. Blood pressure noted to be as low as 95/56 this admission but rest of the readings have been much higher. Granddaughter present at bedside. Patient is usually awake and alert at baseline. Denies history of diabetes. Denies family history of renal disease. Denies use of nonsteroidals. Vital signs are stable. General: No acute distress. Lethargic. HEENT: Head exam is unremarkable. LUNGS: No audible rhonchi or wheezes. HEART: Rate and Rhythm are regular. ABDOMEN: Nontender. EXTREMITITES: No edema. Past Medical History Past Medical History: Dementia, GERD/Reflux, Hyperlipidemia, Hypertension, Osteoarthritis (OA), Pneumonia, Thyroid Disorder, Vascular Disorder Additional Past Medical History / Comment(s): Chronic abdominal pain, IBS/colitis, gastritis, chronic low back and bilateral knee pain, recent L lower leg swelling at times, UTIs, bronchitis/recently approximately 2 weeks ago, past elevated LFTs, scarlet fever as a child. 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 Past Anesthesia/Blood Transfusion Reactions: No Reported Reaction Additional Past Anesthesia/Blood Transfusion Reaction / Comment(s): No blood transfusion to date Past Psychological History: Anxiety, Bipolar, Depression, Panic Disorder Additional Psychological History / Comment(s): OCD. Pt resides with a roomate. She has a cane but does not use it often. She drives Smoking Status: Former smoker Past Alcohol Use History: None Reported Additional Past Alcohol Use History / Comment(s): STARTED SMOKING AT AGE 18 DOWN TO 1/2 PPD (on and off) Past Drug Use History: None Reported Additional Drug Use History / Comment(s): 1/2 pack /day x 50 years (off and on) - Past Family History Father Family Medical History: Cancer Additional Family Medical History / Comment(s): Prostate and bone cancer Mother Family Medical History: Dementia Medications and Allergies Home Medications Medication Instructions Recorded Confirmed Type busPIRone HCL 10 mg PO BID 11/09/19 03/20/23 History Aspirin EC [Ecotrin Low Dose] 81 mg PO HS 08/23/21 03/20/23 History FLUoxetine HCL 40 mg PO DAILY 08/23/21 03/20/23 History Furosemide [Lasix] 20 mg PO DAILY PRN 08/23/21 03/20/23 History HYDROcodone/APAP 7.5-325MG [[place] 1 tab PO TID 08/23/21 03/20/23 History 7.5-325] Lactulose [Constulose] 10 gm PO DAILY PRN 08/23/21 03/20/23 History Loperamide HCl [Imodium A-D] 2 mg PO DAILY 08/23/21 03/20/23 History Melatonin 5 mg PO HS 08/23/21 03/20/23 History Multivit with Calcium,Iron,Min 1 tab PO DAILY 08/23/21 03/20/23 History [Women's Multivitamin] OLANZapine [ZyPREXA] 10 mg PO HS 08/23/21 03/20/23 History Propranolol [Inderal] 20 mg PO BID 08/23/21 03/20/23 History QUEtiapine [SEROquel] 75 mg PO HS 08/23/21 03/20/23 History Tiotropium 2.5 Mcg/Puff [Spiriva 2 puff INHALATION RT-DAILY PRN 08/23/21 03/20/23 History Respimat 2.5 Mcg] hydrOXYzine pamoate [Vistaril] 25 mg PO BID 08/23/21 03/20/23 History Ergocalciferol [Vitamin D2 (1250 1,250 mcg PO SA 08/11/22 03/20/23 History Mcg = 83731 Iu)] Losartan/Hydrochlorothiazide 1 tab PO DAILY 08/11/22 03/20/23 History [Losartan-Hctz 100-12.5 mg Tab] Allergies Allergy/AdvReac Type Severity Reaction Status Date / Time ciprofloxacin [From Cipro] Allergy Severe Itching Verified 03/20/23 15:12 amoxicillin Allergy Unknown Verified 03/20/23 15:12 benztropine Allergy Unknown Verified 03/20/23 15:12 cefuroxime Allergy Itching Verified 03/20/23 15:12 clavulanic acid Allergy Unknown Verified 03/20/23 15:12 [From Augmentin] clindamycin Allergy Unknown Verified 03/20/23 15:12 metronidazole Allergy Unknown Verified 03/20/23 15:12 Physical Exam Vitals: Vital Signs Temp Pulse Pulse Resp BP BP Pulse Ox 03/21/23 10:11 97 03/21/23 08:50 98.1 F 74 16 169/80 95 03/21/23 03:46 98.3 F 65 14 131/73 93 L 03/20/23 23:19 98.2 F 57 L 16 95/56 96 03/20/23 19:36 98.4 F 66 18 138/74 97 03/20/23 18:17 98.0 F 68 18 141/62 98 03/20/23 17:46 65 16 126/86 98 03/20/23 16:00 86 20 160/88 98 03/20/23 15:00 75 20 178/90 98 03/20/23 14:22 65 16 148/67 98 03/20/23 13:26 64 16 130/64 97 03/20/23 13:22 64 16 130/64 97 03/20/23 13:19 98.5 F 62 16 130/64 97 Intake and Output 03/20/23 03/21/23 03/21/23 22:59 06:59 14:59 Intake Total 20 Output Total 275 Balance 20 -275 Intake: IV 20 Invasive Line 1 10 Invasive Line 2 10 Output: Urine 275 Other: Weight 66.678 kg Results - Lab Results Most recent lab results Calcium 8.0 mg/dL (8.4-10.2) L 03/21/23 07:47 Magnesium 1.9 mg/dL (1.6-2.3) 03/21/23 07:47 07/15/23 07:47 03/21/23 07:47 Assessment and Plan Plan: Assessment: 1. Acute kidney injury mostly prerenal secondary to hypovolemia from poor intake and diuretic use, improving with IV hydration. Creatinine 2.38 on admission and is 1.98 today. Baseline creatinine near 1 from September 2022. 2. Benign hypertension. 3. Hypovolemic hyponatremia further worsened with the use of thiazide diuretic. Improving. 4. Hypokalemia from poor intake and diuretic use. Being replaced. 5. Metabolic acidosis secondary to acute kidney injury and IV fluids. Plan: Maintain IV fluids. Add oral bicarb. Potassium being replaced. Encourage oral intake. Check renal ultrasound. Continue to hold diuretics and losartan for now. Continue to monitor renal function and urine output. Monitor bladder scans. If persistently above 300 mL of urine. Bustamante catheter. Thank you for the consultation. I will continue to follow the patient with you during her hospital stay.
[2023-03-21] MEDS ORDERED: HYDROcodone/APAP 7.5-325MG 1 EACH TAB PO PRN (11:04)
--- NOTE | 2023-03-21 11:18 | P.CRDCN ---
History of Present Illness Consult date: 03/21/23 History of present illness: History of Present Illness: The patient is a 77-year-old female with known history of chronic tobacco use who presented with symptoms of progressive dyspnea and fatigue. She stopped smoking less than a week ago. In the emergency room she was noted to have abnormal renal functions and mild troponin elevation. The patient denies any chest discomfort or history of coronary artery disease. She has occasional peripheral edema. She denies any dizziness, palpitations or syncope. She denies any history of arrhythmia. She has dyspnea on exertion, cough and wheezing. She was in sinus mechanism on presentation. Her coronary risk factors are positive for a history of hypertension and chronic tobacco use. The patient was in the hospital in August 2021 and underwent a stress test test revealed no evidence of inducible ischemia, her systolic function was preserved. Her renal function were normal in September of this year Medications: Aspirin, Inderal 20 mg twice a day, [place] [address]-8/2 mg daily, Lasix as needed, fluoxetine, vitamin D, buspirone, Seroquel, Zyprexa Review of Systems: Respiratory: She has chronic dyspnea on exertion and a prior history of smoking GI: No nausea or vomiting . No history of peptic ulcer disease. No recent GI bleed. : No hematuria or dysuria. Nervous System: No stroke or seizure. Physical Examination: 77-year-old female, alert oriented no apparent distress ,Blood pressure 131/70, Heart rate 60 Head: Normocephalic. Eyes: Sclerae nonicteric. Neck: Good carotid upstroke, no bruit, no jugular venous distention. Lungs: Clear to auscultation. Heart: Regular rate and rhythm, S1-S2, no S3, no rub. Systolic ejection murmur at the base. Abdomen: Soft nontender, positive bowel sounds no organomegaly. Extremities: No edema, intact distal pulses. Labs: Troponin 0.106, 0.096, 0.086. BUN 49, creatinine 2.38. Potassium 2.9. Albumin 2.5. WBC 11.3, hemoglobin 13.3. Computed tomography scan of the head with no bleed. Chest x-ray with no acute infiltrate EKG: Sinus mechanism with nonspecific ST-T wave changes anteriorly, no acute changes Impression: 1. Progressive fatigue and weakness could be related to the acute 2. Acute Kidney injury 3. Troponin elevation with no evidence to suggest acute coronary syndrome, probably worsened by the renal function 4. History of hypertension 5. Chronic tobacco use and history of COPD Plan: 1. Obtain an echocardiogram with Doppler 2. Follow renal functions 3. Hold losartan 4. Add statin 5. The patient may benefit from a stress test that can be done as an outpatient 6. Thank you for this consult we will follow with you Past Medical History Past Medical History: Dementia, GERD/Reflux, Hyperlipidemia, Hypertension, Osteoarthritis (OA), Pneumonia, Thyroid Disorder, Vascular Disorder Additional Past Medical History / Comment(s): Chronic abdominal pain, IBS/coli tis, gastritis, chronic low back and bilateral knee pain, recent L lower leg swelling at times, UTIs, bronchitis/recently approximately 2 weeks ago, past elevated LFTs, scarlet fever as a child. 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 Past Anesthesia/Blood Transfusion Reactions: No Reported Reaction Additional Past Anesthesia/Blood Transfusion Reaction / Comment(s): No blood transfusion to date Past Psychological History: Anxiety, Bipolar, Depression, Panic Disorder Additional Psychological History / Comment(s): OCD. Pt resides with a roomate. She has a cane but does not use it often. She drives Smoking Status: Former smoker Past Alcohol Use History: None Reported Additional Past Alcohol Use History / Comment(s): STARTED SMOKING AT AGE 18 DOWN TO 1/2 PPD (on and off) Past Drug Use History: None Reported Additional Drug Use History / Comment(s): 1/2 pack /day x 50 years (off and on) - Past Family History Father Family Medical History: Cancer Additional Family Medical History / Comment(s): Prostate and bone cancer Mother Family Medical History: Dementia Medications and Allergies Home Medications Medication Instructions Recorded Confirmed Type busPIRone HCL 10 mg PO BID 11/09/19 03/20/23 History Aspirin EC [Ecotrin Low Dose] 81 mg PO HS 08/23/21 03/20/23 History FLUoxetine HCL 40 mg PO DAILY 08/23/21 03/20/23 History Furosemide [Lasix] 20 mg PO DAILY PRN 08/23/21 03/20/23 History HYDROcodone/APAP 7.5-325MG [[place] 1 tab PO TID 08/23/21 03/20/23 History 7.5-325] Lactulose [Constulose] 10 gm PO DAILY PRN 08/23/21 03/20/23 History Loperamide HCl [Imodium A-D] 2 mg PO DAILY 08/23/21 03/20/23 History Melatonin 5 mg PO HS 08/23/21 03/20/23 History Multivit with Calcium,Iron,Min 1 tab PO DAILY 08/23/21 03/20/23 History [Women's Multivitamin] OLANZapine [ZyPREXA] 10 mg PO HS 08/23/21 03/20/23 History Propranolol [Inderal] 20 mg PO BID 08/23/21 03/20/23 History QUEtiapine [SEROquel] 75 mg PO HS 08/23/21 03/20/23 History Tiotropium 2.5 Mcg/Puff [Spiriva 2 puff INHALATION RT-DAILY PRN 08/23/21 03/20/23 History Respimat 2.5 Mcg] hydrOXYzine pamoate [Vistaril] 25 mg PO BID 08/23/21 03/20/23 History Ergocalciferol [Vitamin D2 (1250 1,250 mcg PO SA 08/11/22 03/20/23 History Mcg = 44863 Iu)] Losartan/Hydrochlorothiazide 1 tab PO DAILY 08/11/22 03/20/23 History [Losartan-Hctz 100-12.5 mg Tab] Allergies Allergy/AdvReac Type Severity Reaction Status Date / Time ciprofloxacin [From Cipro] Allergy Severe Itching Verified 03/20/23 15:12 amoxicillin Allergy Unknown Verified 03/20/23 15:12 benztropine Allergy Unknown Verified 03/20/23 15:12 cefuroxime Allergy Itching Verified 03/20/23 15:12 clavulanic acid Allergy Unknown Verified 03/20/23 15:12 [From Augmentin] clindamycin Allergy Unknown Verified 03/20/23 15:12 metronidazole Allergy Unknown Verified 03/20/23 15:12 Physical Exam Vitals: Vital Signs Temp Pulse Pulse Resp BP BP Pulse Ox 03/21/23 10:11 97 03/21/23 08:50 98.1 F 74 16 169/80 95 03/21/23 03:46 98.3 F 65 14 131/73 93 L 03/20/23 23:19 98.2 F 57 L 16 95/56 96 03/20/23 19:36 98.4 F 66 18 138/74 97 03/20/23 18:17 98.0 F 68 18 141/62 98 03/20/23 17:46 65 16 126/86 98 03/20/23 16:00 86 20 160/88 98 03/20/23 15:00 75 20 178/90 98 03/20/23 14:22 65 16 148/67 98 03/20/23 13:26 64 16 130/64 97 03/20/23 13:22 64 16 130/64 97 03/20/23 13:19 98.5 F 62 16 130/64 97 Intake and Output 03/20/23 03/21/23 03/21/23 22:59 06:59 14:59 Intake Total 20 Output Total 275 Balance 20 -275 Intake: IV 20 Invasive Line 1 10 Invasive Line 2 10 Output: Urine 275 Other: Voiding Method Incontinent External Catheter Weight 66.678 kg Results 03/21/23 07:47 03/21/23 07:47 Cardiac Enzymes 03/20/23 03/20/23 03/20/23 Range/Units 13:48 13:48 18:17 AST 25 (14-36) U/L Troponin I 0.106 H* 0.096 H* (0.000-0.034) ng/mL 03/20/23 03/21/23 Range/Units 21:02 07:47 AST 30 (14-36) U/L Troponin I 0.086 H* (0.000-0.034) ng/mL Coagulation 03/20/23 Range/Units 13:48 PT 10.2 (9.0-12.0) sec APTT 25.2 (22.0-30.0) sec CBC 03/20/23 03/21/23 Range/Units 13:48 07:47 WBC 12.5 H 11.3 H (3.8-10.6) k/uL RBC 3.89 4.05 (3.80-5.40) m/uL Hgb 12.9 13.3 (11.4-16.0) gm/dL Hct 38.3 41.6 (34.0-46.0) % Plt Count 79 L 81 L (150-450) k/uL Comprehensive Metabolic Panel 03/20/23 03/21/23 Range/Units 13:48 07:47 Sodium 124 L 127 L (137-145) mmol/L Potassium 2.9 L 3.4 L (3.5-5.1) mmol/L Chloride 90 L 96 L (98-107) mmol/L Carbon Dioxide 25 19 L (22-30) mmol/L BUN 49 H 53 H (7-17) mg/dL Creatinine 2.38 H 1.98 H (0.52-1.04) mg/dL Glucose 80 50 L (74-99) mg/dL Calcium 8.0 L 8.0 L (8.4-10.2) mg/dL AST 25 30 (14-36) U/L ALT 29 26 (4-34) U/L Alkaline Phosphatase 120 122 (38-126) U/L Total Protein 4.9 L 5.0 L (6.3-8.2) g/dL Albumin 2.6 L 2.5 L (3.5-5.0) g/dL Current Medications Generic Name Dose Route Start Last Admin Trade Name Freq PRN Reason Stop Dose Admin Hydrocodone Bitart/Acetaminophen 1 each 03/21/23 11:04 Hydrocodone/Apap 7.5-325mg 1 Each Tab PO TID PRN Pain Aspirin 81 mg 03/20/23 21:00 03/20/23 20:09 Aspirin 81 Mg PO 81 mg HS SHERINE Administration Ergocalciferol 1,250 mcg 03/21/23 09:00 03/21/23 09:40 Ergocalciferol 1,250 Mcg (50,000 Iu) Capsule PO 1,250 mcg SA SHERINE Administration Famotidine 20 mg 03/20/23 21:00 03/20/23 20:09 Famotidine 20 Mg Tab PO 20 mg HS SHERINE Administration Sodium Chloride 1,000 mls @ 75 mls/hr 03/20/23 15:45 03/21/23 09:42 Saline 0.9% IV 75 mls/hr .[id number] SHERINE Administration Levofloxacin 500 mg/ IV 100 mls @ 100 mls/hr 03/22/23 09:00 Solution IVPB Q48H SHERINE Protocol Ipratropium [place] 0.5 mg 03/20/23 16:23 Ipratropium 0.5 Mg/2.5 Ml Nebu INHALATION RT-QID PRN Shortness Of Breath Loperamide HCl 2 mg 03/21/23 09:00 03/21/23 09:40 Loperamide 2 Mg Cap PO 2 mg DAILY SHERINE Administration Miscellaneous Information 1 each 03/21/23 08:54 Potassium Replacement Protocol 1 Each Misc MISCELLANE DAILY PRN Per Protocol Protocol Multivitamins 1 each 03/21/23 09:00 03/21/23 09:39 Multivitamins, Thera 1 Each Tab PO 1 each DAILY SHERINE Administration Naloxone HCl 0.2 mg 03/20/23 15:44 Naloxone 0.4 Mg/Ml 1 Ml Vial IV Q2M PRN Opioid Reversal Propranolol HCl 20 mg 03/20/23 21:00 03/21/23 09:40 Propranolol 20 Mg Tab PO 20 mg BID SHERINE Administration Quetiapine Fumarate 75 mg 03/20/23 21:00 03/20/23 20:09 Quetiapine 25 Mg Tab PO 75 mg HS SHERINE Administration Sodium Bicarbonate 650 mg 03/21/23 11:00 Sodium Bicarbonate Tab 650 Mg Tab PO TID SHERINE Intake and Output 03/20/23 03/21/23 03/21/23 22:59 06:59 14:59 Intake Total 20 Output Total 275 Balance 20 -275 Intake: IV 20 Invasive Line 1 10 Invasive Line 2 10 Output: Urine 275 Other: Voiding Method Incontinent External Catheter Weight 66.678 kg 03/21/23 07:47 03/21/23 07:47
[2023-03-21] MEDS: SODIUM BICARBONATE TAB 650 MG TAB PO SCH ×3 (11:54→19:56)
[2023-03-21] MEDS: AZTREONAM 2 GM in SODIUM CHLORIDE 0.9% 100 ML IVPB SCH ×2 (13:00→23:08)
--- NOTE | 2023-03-21 15:28 | CA ---
Transthoracic Echo Report Name: Vilma Costa Age: 77 Gender: F : 1945 Exam Date: 03/21/2023 13:27 Exam Location: [place] Echo Ht (in): 60 Wt (lb): 147 Ordering Physician: Isidro Richards MD ([id number]) Attending/Referring Phys: Heel Attacher Wood Lina Brito [facility] Procedure CPT: Indications: HTN Cardiac Hx: Technical Quality: Fair Contrast 1: Total Dose (mL): Contrast 2: Total Dose (mL): MEASUREMENTS (Male / Female) Normal Values 2D ECHO LV Diastolic Diameter PLAX 4.1 cm 4.2 - 5.9 / 3.9 - 5.3 cm LV Systolic Diameter PLAX 2.8 cm IVS Diastolic Thickness 0.8 cm 0.6 - 1.0 / 0.6 - 0.9 cm LVPW Diastolic Thickness 0.9 cm 0.6 - 1.0 / 0.6 - 0.9 cm LV Relative Wall Thickness 0.4 RV Internal Dim ED PLAX 3.6 cm LVOT Diameter 2.0 cm Ascending Aorta Diameter 3.1 cm M-MODE Aortic Root Diameter MM 2.9 cm LA Systolic Diameter MM 4.0 cm LA Ao Ratio MM 1.4 AV Cusp Separation MM 2.0 cm DOPPLER AV Peak Velocity 142.1 cm/s AV Peak Gradient 8.1 mmHg AV Mean Velocity 93.3 cm/s AV Mean Gradient 3.9 mmHg AV Velocity Time Integral 29.0 cm LVOT Peak Velocity 89.4 cm/s LVOT Peak Gradient 3.2 mmHg LVOT Velocity Time Integral 20.8 cm LVOT Stroke Volume 63.5 cm??? LVOT Stroke Volume Index 38.8 ml/m??? LVOT Cardiac Index 2497.1 cm???/min???m??? AV Area Cont Eq vti 2.2 cm??? AV Area Cont Eq pk 1.9 cm??? Mitral E Point Velocity 67.0 cm/s Mitral A Point Velocity 82.0 cm/s Mitral E to A Ratio 0.8 MV Deceleration Time 223.1 ms LV E' Lateral Velocity 8.6 cm/s Mitral E to LV E' Lateral Ratio 7.8 LV E' Septal Velocity 7.0 cm/s Mitral E to LV E' Septal Ratio 9.6 TR Peak Velocity 157.1 cm/s TR Peak Gradient 9.9 mmHg Right Atrial Pressure 8.0 mmHg Pulmonary Artery Systolic Pressu 17.9 mmHg Right Ventricular Systolic Press 17.9 mmHg FINDINGS Left Ventricle Normal Left ventricular size, wall thickness, systolic function with no obvious regional wall motion abnormalities. Left ventricular ejection fraction is estimated at 55-60%. Right Ventricle right ventricular dilatation. Normal right ventricular global systolic function. Right Atrium Right atrium not well visualized but appears dilated. Left Atrium Normal left atrial size. Mitral Valve Structurally normal mitral valve. No mitral regurgitation.mitral annular calcification. Aortic Valve Aortic valve sclerosis. No aortic regurgitation. Tricuspid Valve Structurally normal tricuspid valve. Mild tricuspid regurgitation. Pulmonic Valve Structurally normal pulmonic valve. No pulmonic regurgitation. Pericardium No pericardial effusion. Echo free space anterior to the right ventricle likely represents a fat pad. Aorta Normal size aortic root and proximal ascending aorta. CONCLUSIONS 1. Normal left ventricular size and systolic function 2. Mild tricuspid regurgitation with normal RVSP Previewed by: Dr. Isidro Richards MD (Electronically Signed) Final Date: 21 March 2023 15:27
--- NOTE | 2023-03-21 16:02 | US ---
EXAMINATION TYPE: US kidneys/renal and bladder DATE OF EXAM: 03/21/2023 COMPARISON: Ultrasound 01/18/2019 CLINICAL INDICATION: Female, 77 years old with history of acute kidney injury EXAM MEASUREMENTS: Right Kidney: 12.0 x 5.6 x 5.9 cm Left Kidney: 9.0 x 4.7 x 4.5 cm Right Kidney: Complex appearing cyst at the upper pole measuring 1.7 x 1.8 x 1.8 cm. Exophytic cyst lower pole measuring 4.2 x 3.4 x 4.3 cm. No hydronephrosis. Left Kidney: Cortical thinning suggesting chronic medical renal disease. A couple benign renal cortic al cysts measuring up to 1.3 cm in the upper pole and 2.0 cm in the lower pole. Low-level internal ec hoes likely artifactual or could represent debris. Bladder: Partially distended shows no gross abnormality. Bilateral Jets seen: No IMPRESSION: 1. No hydronephrosis. Chronic medical renal disease especially on the left. 2. There is a cortical lesion at the upper pole of the right kidney measuring 1.8 cm that appears mil dly complex. Not well seen on the ultrasound of 01/18/2019. Recommend 6 month follow-up ultrasound to reassess.
--- NOTE | 2023-03-21 18:15 | P.CONS ---
History of Present Illness - Reason for Consult Consult date: 03/21/23 - History of Present Illness Patient is a 77-year-old female with a past medical history significant hypertension hyperlipidemia reflux and dementia patient presenting to the hospital yesterday afternoon for evaluation of fatigue and drowsiness symptom has been getting worse for the last 4 days and the patient is unable to walk back up her stairs and was getting more weak and fatigued patient denies any high-grade fever or any chills she did have some mild headache no other URI symptoms no chest pain no shortness of breath did have a mild dry cough nausea but no vomiting no abdominal pain or diarrhea did have some vague urinary symptoms patient on presentation to the hospital was afebrile and no fever has been recorded subsequently patient did have white count of 12.5 with a left shift platelet count was noted to have elevated bili and creatinine troponins were elevated urine was positive cloudy with large leukocyte esterase more than 182 WBC urine drug screen was positive for opiates tricyclic's and benzo patient did have a blood culture drawn coming back positive with gram-negative bacilli that has prompted this infectious disease consultation patient did have a chest x-ray no acute pulmonary process patient has been on Levaquin because of her multiple antibiotic allergies infected was asked to see the patient for further management of antibiotic therapy as there was concern for possible Levaquin resistant pathogen ultrasound of the kidney no hydronephrosis chronic medical renal disease Past Medical History Past Medical History: Dementia, GERD/Reflux, Hyperlipidemia, Hypertension, Osteoarthritis (OA), Pneumonia, Thyroid Disorder, Vascular Disorder Additional Past Medical History / Comment(s): Chronic abdominal pain, IBS/colitis, gastritis, chronic low back and bilateral knee pain, recent L lower leg swelling at times, UTIs, bronchitis/recently approximately 2 weeks ago, past elevated LFTs, scarlet fever as a child. 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 Past Anesthesia/Blood Transfusion Reactions: No Reported Reaction Additional Past Anesthesia/Blood Transfusion Reaction / Comm: No blood transfusion to date Past Psychological History: Anxiety, Bipolar, Depression, Panic Disorder Additional Psychological History / Comment(s): OCD. Pt resides with a roomate. She has a cane but does not use it often. She drives Smoking Status: Former smoker Past Alcohol Use History: None Reported Additional Past Alcohol Use History / Comment(s): STARTED SMOKING AT AGE 18 DOWN TO 1/2 PPD (on and off) Past Drug Use History: None Reported Additional Drug Use History / Comment(s): 1/2 pack /day x 50 years (off and on) - Past Family History Father Family Medical History: Cancer Additional Family Medical History / Comment(s): Prostate and bone cancer Mother Family Medical History: Dementia Medications and Allergies Home Medications Medication Instructions Recorded Confirmed Type busPIRone HCL 10 mg PO BID 11/09/19 03/20/23 History Aspirin EC [Ecotrin Low Dose] 81 mg PO HS 08/23/21 03/20/23 History FLUoxetine HCL 40 mg PO DAILY 08/23/21 03/20/23 History Furosemide [Lasix] 20 mg PO DAILY PRN 08/23/21 03/20/23 History HYDROcodone/APAP 7.5-325MG [Logan 1 tab PO TID 08/23/21 03/20/23 History 7.5-325] Lactulose [Constulose] 10 gm PO DAILY PRN 08/23/21 03/20/23 History Loperamide HCl [Imodium A-D] 2 mg PO DAILY 08/23/21 03/20/23 History Melatonin 5 mg PO HS 08/23/21 03/20/23 History Multivit with Calcium,Iron,Min 1 tab PO DAILY 08/23/21 03/20/23 History [Women's Multivitamin] OLANZapine [ZyPREXA] 10 mg PO HS 08/23/21 03/20/23 History Propranolol [Inderal] 20 mg PO BID 08/23/21 03/20/23 History QUEtiapine [SEROquel] 75 mg PO HS 08/23/21 03/20/23 History Tiotropium 2.5 Mcg/Puff [Spiriva 2 puff INHALATION RT-DAILY PRN 08/23/2103/07 History Respimat 2.5 Mcg] hydrOXYzine pamoate [Vistaril] 25 mg PO BID 08/23/21 03/20/23 History Ergocalciferol [Vitamin D2 (1250 1,250 mcg PO SA 08/11/22 03/20/23 History Mcg = 36854 Iu)] Losartan/Hydrochlorothiazide 1 tab PO DAILY 08/11/22 03/20/23 History [Losartan-Hctz 100-12.5 mg Tab] Allergies Allergy/AdvReac Type Severity Reaction Status Date / Time ciprofloxacin [From Cipro] Allergy Severe Itching Verified 03/20/23 15:12 amoxicillin Allergy Unknown Verified 03/20/23 15:12 benztropine Allergy Unknown Verified 03/20/23 15:12 cefuroxime Allergy Itching Verified 03/20/23 15:12 clavulanic acid Allergy Unknown Verified 03/20/23 15:12 [From Augmentin] clindamycin Allergy Unknown Verified 03/20/23 15:12 metronidazole Allergy Unknown Verified 03/20/23 15:12 Physical Exam Vitals: Vital Signs Temp Pulse Pulse Resp BP BP Pulse Ox 03/21/23 11:51 68 16 139/67 93 L 03/21/23 10:11 97 03/21/23 08:50 98.1 F 74 16 169/80 95 03/21/23 03:46 98.3 F 65 14 131/73 93 L 03/20/23 23:19 98.2 F 57 L 16 95/56 96 03/20/23 19:36 98.4 F 66 18 138/74 97 03/20/23 18:17 98.0 F 68 18 141/62 98 03/20/23 17:46 65 16 126/86 98 03/20/23 16:00 86 20 160/88 98 03/20/23 15:00 75 20 178/90 98 03/20/23 14:22 65 16 148/67 98 03/20/23 13:26 64 16 130/64 97 03/20/23 13:22 64 16 130/64 97 03/20/23 13:19 98.5 F 62 16 130/64 97 Intake and Output 03/20/23 03/21/23 03/21/23 22:59 06:59 14:59 Intake Total 20 Output Total 275 Balance 20 -275 Intake: IV 20 Invasive Line 1 10 Invasive Line 2 10 Output: Urine 275 Other: Voiding Method Incontinent External Catheter Weight 66.678 kg Results CBC & Chem 7: 03/21/23 07:47 03/21/23 16:06 Labs: Abnormal Lab Results - Last 24 Hours (Table) 03/20/23 03/20/23 03/20/23 Range/Units 13:48 13:48 13:48 WBC 12.5 H (3.8-10.6) k/uL MCV (80.0-100.0) fL Plt Count 79 L (150-450) k/uL Neutrophils # 10.1 H (1.3-7.7) k/uL Lymphocytes # (1.0-4.8) k/uL Sodium 124 L (137-145) mmol/L Potassium 2.9 L (3.5-5.1) mmol/L Chloride 90 L (98-107) mmol/L Carbon Dioxide (22-30) mmol/L BUN 49 H (7-17) mg/dL Creatinine 2.38 H (0.52-1.04) mg/dL Glucose (74-99) mg/dL Calcium 8.0 L (8.4-10.2) mg/dL Total Bilirubin 1.4 H (0.2-1.3) mg/dL Troponin I (0.000-0.034) ng/mL Total Protein 4.9 L (6.3-8.2) g/dL Albumin 2.6 L (3.5-5.0) g/dL Urine Appearance (Clear) Urine Protein (Negative) Urine Blood (Negative) Urine Nitrite (Negative) Ur Leukocyte Esterase (Negative) Urine RBC (0-5) /hpf Urine WBC (0-5) /hpf Urine WBC Clumps (None) /hpf Amorphous Sediment (None) /hpf Urine Bacteria (None) /hpf Urine Opiates Screen Detected H (NotDetected) U Tricyclic Antidepress Detected H (NotDetected) U Benzodiazepines Scrn Detected H (NotDetected) 03/20/23 03/20/23 03/20/23 Range/Units 13:48 13:48 18:17 WBC (3.8-10.6) k/uL MCV (80.0-100.0) fL Plt Count (150-450) k/uL Neutrophils # (1.3-7.7) k/uL Lymphocytes # (1.0-4.8) k/uL Sodium (137-145) mmol/L Potassium (3.5-5.1) mmol/L Chloride (98-107) mmol/L Carbon Dioxide (22-30) mmol/L BUN (7-17) mg/dL Creatinine (0.52-1.04) mg/dL Glucose (74-99) mg/dL Calcium (8.4-10.2) mg/dL Total Bilirubin (0.2-1.3) mg/dL Troponin I 0.106 H* 0.096 H* (0.000-0.034) ng/mL Total Protein (6.3-8.2) g/dL Albumin (3.5-5.0) g/dL Urine Appearance Cloudy H (Clear) Urine Protein 2+ H (Negative) Urine Blood Small H (Negative) Urine Nitrite Positive H (Negative) Ur Leukocyte Esterase Large H (Negative) Urine RBC 8 H (0-5) /hpf Urine WBC >182 H (0-5) /hpf Urine WBC Clumps Many H (None) /hpf Amorphous Sediment Occasional H (None) /hpf Urine Bacteria Rare H (None) /hpf Urine Opiates Screen (NotDetected) U Tricyclic Antidepress (NotDetected) U Benzodiazepines Scrn (NotDetected) 03/20/23 03/21/23 03/21/23 Range/Units 21:02 07:47 07:47 WBC 11.3 H (3.8-10.6) k/uL MCV 102.7 H (80.0-100.0) fL Plt Count 81 L (150-450) k/uL Neutrophils # 9.5 H (1.3-7.7) k/uL Lymphocytes # 0.7 L (1.0-4.8) k/uL Sodium 127 L (137-145) mmol/L Potassium 3.4 L (3.5-5.1) mmol/L Chloride 96 L (98-107) mmol/L Carbon Dioxide 19 L (22-30) mmol/L BUN 53 H (7-17) mg/dL Creatinine 1.98 H (0.52-1.04) mg/dL Glucose 50 L (74-99) mg/dL Calcium 8.0 L (8.4-10.2) mg/dL Total Bilirubin 1.4 H (0.2-1.3) mg/dL Troponin I 0.086 H* (0.000-0.034) ng/mL Total Protein 5.0 L (6.3-8.2) g/dL Albumin 2.5 L (3.5-5.0) g/dL Urine Appearance (Clear) Urine Protein (Negative) Urine Blood (Negative) Urine Nitrite (Negative) Ur Leukocyte Esterase (Negative) Urine RBC (0-5) /hpf Urine WBC (0-5) /hpf Urine WBC Clumps (None) /hpf Amorphous Sediment (None) /hpf Urine Bacteria (None) /hpf Urine Opiates Screen (NotDetected) U Tricyclic Antidepress (NotDetected) U Benzodiazepines Scrn (NotDetected) Microbiology - Last 24 Hours (Table) 03/20/23 16:20 Blood Culture Gram Stain - Preliminary Blood Assessment and Plan (1) Gram-negative bacteremia Current Visit: Yes Status: Acute Code(s): R78.81 - BACTEREMIA SNOMED Code(s): 607414175648 (2) Renal insufficiency Current Visit: Yes Status: Acute Code(s): N28.9 - DISORDER OF KIDNEY AND URETER, UNSPECIFIED SNOMED Code(s): 603997574 (3) Allergy to multiple antibiotics Current Visit: Yes Status: Acute Code(s): Z88.1 - ALLERGY STATUS TO OTHER ANTIBIOTIC AGENTS SNOMED Code(s): 654492005 (4) Urinary tract infection Current Visit: Yes Status: Acute Code(s): N39.0 - URINARY TRACT INFECTION, SITE NOT SPECIFIED SNOMED Code(s): 28787245 Plan: 1patient with gram-negative bacteremia in this patient with significantly positive urinary symptoms with elevated creatinine concerning for possible complicated UTI to be the likely etiology of this gram-negative bacteremia patient abdominal soft medical examination and no evidence of any pneumonia clinically no cellulitis or joint swelling 2patient with multiple antibiotic allergies that would limit the number of antibiotics safe to use-, renal insufficiency high risk of nephrotoxicity 3discontinue Levaquin. 4start the patient on Azactam 2 g every 12 hours, dose has been adjusted to her kidney function We will follow on clinical condition and cultures to further adjust medication if needed Thank you for this consultation we will follow the patient along with you Dictation was produced using [employer] dictation software. please excuse any grammatical, word or spelling errors. Time with Patient: Greater than 30
[2023-03-21] MEDS: FAMOTIDINE 20 MG TAB PO SCH (19:56)
[2023-03-21] MEDS: ASPIRIN 81 MG PO SCH (19:56)
--- NOTE | 2023-03-21 21:45 | PN ---
PROGRESS NOTE DATE OF SERVICE: 03/21/2023 SUBJECTIVE: This is a 77-year-old woman who was admitted with acute UTI, also had dehydration. The labs showed sodium was 127, potassium 3.4. Creatinine is slightly improved. Nephrology is following the patient closely. PAST MEDICAL HISTORY: Reviewed. REVIEW OF SYSTEMS: Could not be taken. CURRENT MEDICATIONS: Reviewed. OBJECTIVE: VITAL SIGNS: Pulse is 68, blood pressure 130/60, respirations 16. HEENT: Conjunctivae normal. NECK: No jugular venous distention. CARDIOVASCULAR: S1, S2. RESPIRATIONS: Diminished at the bases, few scattered rhonchi, no crackles. ABDOMEN: Soft. NERVOUS SYSTEM: No focal deficits. The patient is confused. LABORATORY DATA: Sodium 127, potassium 3.4. Bilirubin is 1.4. Rest of the labs are noted. Cultures are negative so far. ASSESSMENT: 1. Acute urinary tract infection with possible sepsis present on admission. 2. Dehydration with acute renal failure with acute tubular necrosis present on admission. 3. Troponin 0.106, indeterminate, notes history of acute coronary syndrome per Cardiology. 4. Hyponatremia. 5. Hypokalemia. 6. Increased WBC. 7. Dementia. 8. Hypertension. 9. Hyperlipidemia. 10.Multiple medical issues. RECOMMENDATIONS: Recommended to continue current management, continue symptomatic treatment. Continue symptomatic treatment. Continue the antibiotics. Follow closely with Infectious Disease, Nephrology and Cardiology. Prognosis guarded. The cultures are pending as mentioned earlier. Further recommendations to follow. Labs will be ordered. See orders for details. MMODL / IJN: [id number] /
[2023-03-22 08:02] LABS: Basophils % (A) 0 %; Eosinophils % (A) 0 %; HCT 36.2 % (34.0-46.0); HGB 11.9 gm/dL (11.4-16.0); Lymphocytes # (A) 1.1 k/uL (1.0-4.8); Lymphocytes % (A) 9 %; MCHC 32.8 g/dL (31.0-37.0); MCV 100.8 fL (80.0-100.0); Macrocytosis Slight; Mean Platelet Volume 8.2; Monocytes # (A) 0.6 k/uL (0-1.0); Monocytes % (A) 5 %; Neutrophils # (A) 9.9 k/uL (1.3-7.7); Neutrophils % (A) 83 %; RBC 3.59 m/uL (3.80-5.40); RDW 13.8 % (11.5-15.5)
[2023-03-22] MEDS: SODIUM CHLORIDE 0.9% 1,000 ML IV SCH ×2 (08:11→21:41)
[2023-03-22] MEDS: ATORVASTATIN 40 MG TAB PO SCH (08:14)
[2023-03-22] MEDS: MULTIVITAMINS, THERA 1 EACH TAB PO SCH (08:14)
[2023-03-22] MEDS: SODIUM BICARBONATE TAB 650 MG TAB PO SCH ×3 (08:15→21:40)
[2023-03-22] MEDS: LOPERAMIDE 2 MG CAP PO SCH (08:15)
[2023-03-22] MEDS: PROPRANOLOL 20 MG TAB PO SCH ×2 (08:15→21:41)
[2023-03-22 08:32] LABS: ALT 22 U/L (4-34); AST 25 U/L (14-36); African American GFR (CKD) 37 (>60 ml/min/1.73 sqM); Albumin 2.2 g/dL (3.5-5.0); Alkaline Phosphatase 138 U/L (38-126); Anion Gap 10 mmol/L; Blood Urea Nitrogen 45 mg/dL (7-17); Calcium 7.9 mg/dL (8.4-10.2); Carbon Dioxide 18 mmol/L (22-30); Chloride 98 mmol/L (98-107); Glucose 91 mg/dL (74-99); Magnesium 1.7 mg/dL (1.6-2.3); Non-African American GFR(CKD) 32 (>60 ml/min/1.73 sqM); Potassium 3.2 mmol/L (3.5-5.1); Sodium 126 mmol/L (137-145); Total Bilirubin 1.1 mg/dL (0.2-1.3); Total Protein 4.4 g/dL (6.3-8.2)
[2023-03-22 08:35] LABS: Platelet Count 88 k/uL (150-450)
[2023-03-22] MEDS ORDERED: LEVOFLOXACIN 500MG-D5W PMX 500 MG in DEXTROSE/WATER 1 100ML.BAG IVPB SCH (09:00)
[2023-03-22] MEDS ORDERED: Potassium Replacement Protocol 1 EACH MISC MISCELLANE PRN ×2 (09:27→15:40)
[2023-03-22] MEDS ORDERED: Magnesium Replacement Protocol 1 EACH MISC MISCELLANE PRN ×2 (09:28→15:40)
[2023-03-22] MEDS ORDERED: MAGNESIUM SULFATE-D5W PMX 1 GM in DEXTROSE/WATER 1 100ML.BAG IVPB ONE (10:00)
[2023-03-22] MEDS: POTASSIUM CHLORIDE ER 20 MEQ TAB.ER PO SCH (10:05)
[2023-03-22] MEDS ORDERED: SODIUM BICARB 8.4% 50 ML SYR (1 MEQ/ML) IV STA (11:18)
--- NOTE | 2023-03-22 11:21 | P.PN ---
Subjective Patient is seen in follow-up for acute kidney injury. Renal function improving. Nonoliguric. Oral intake remains poor. Had oatmeal this morning. Blood pressure on the higher side. Vital signs are stable. General: NAD. HEENT: Head exam is unremarkable. LUNGS: No audible rhonchi or wheezes. HEART: Rate and Rhythm are regular. ABDOMEN: Nontender. EXTREMITITES: No edema. Objective - Vital Signs Vital signs: Vital Signs Temp 98.1 F 03/22/23 08:00 Pulse 64 03/22/23 08:00 Resp 16 03/22/23 08:00 BP 170/73 03/22/23 08:00 Pulse Ox 96 03/22/23 08:35 FiO2 21 03/22/23 08:35 Intake & Output 03/21/23 03/22/23 03/22/23 18:59 06:59 18:59 Intake Total 358 240 Output Total 575 500 Balance -217 -260 Intake: Oral 358 240 Output: Urine 575 500 Other: Voiding Method Incontinent Incontinent Incontinent External Catheter External Catheter External Catheter # Voids 2 - Labs CBC & Chem 7: 03/22/23 07:39 03/22/23 07:39 Labs: Abnormal Lab Results - Last 24 Hours (Table) 03/22/23 03/22/23 Range/Units 07:39 07:39 WBC 12.0 H (3.8-10.6) k/uL RBC 3.59 L (3.80-5.40) m/uL MCV 100.8 H (80.0-100.0) fL Plt Count 88 L (150-450) k/uL Neutrophils # 9.9 H (1.3-7.7) k/uL Sodium 126 L (137-145) mmol/L Potassium 3.2 L (3.5-5.1) mmol/L Carbon Dioxide 18 L (22-30) mmol/L BUN 45 H (7-17) mg/dL Creatinine 1.54 H (0.52-1.04) mg/dL Calcium 7.9 L (8.4-10.2) mg/dL Alkaline Phosphatase 138 H (38-126) U/L Total Protein 4.4 L (6.3-8.2) g/dL Albumin 2.2 L (3.5-5.0) g/dL Microbiology - Last 24 Hours (Table) 03/20/23 16:20 Blood Culture Gram Stain - Preliminary Blood Blood Culture - Preliminary Gram Neg Bacilli 03/20/23 16:15 Blood Culture Gram Stain - Preliminary Blood Blood Culture - Preliminary Gram Neg Bacilli Assessment and Plan Plan: Assessment: 1. Acute kidney injury mostly prerenal secondary to hypovolemia from poor intake and diuretic use, severe sepsis improving with IV hydration. Creatinine 2.38 on admission and is 1.54 today. Baseline creatinine near 1 from September 2022. No hydronephrosis noted on kidney ultrasound. Right complex kidney cyst present which will need to be monitored outpatient. 2. Benign hypertension. 3. Hypovolemic hyponatremia further worsened with the use of thiazide diuretic. 4. Hypokalemia from poor intake and diuretic use. Being replaced. 5. Metabolic acidosis secondary to acute kidney injury and IV fluids. On oral bicarbonate. 6. Severe sepsis with gram-negative bacteremia on antibiotics. ID following. Plan: Maintain IV fluids. Replace potassium and magnesium. Encourage oral intake. 1500 mL fluid restriction. Continue to hold diuretics and losartan for now. Continue to monitor renal function and urine output. Preserved ejection fraction noted on echocardiogram. Check serum and urine osmolality and urine sodium level. Check TSH.
[2023-03-22] MEDS: hydrALAZINE HCL 50 MG TAB PO SCH ×2 (12:15→21:40)
--- NOTE | 2023-03-22 12:34 | P.PN ---
Subjective Progress Note Date: 03/22/23 PROGRESS NOTE The patient is a 77-year-old female with known history of chronic tobacco use who presented with symptoms of progressive dyspnea and fatigue. She stopped smoking less than a week ago. In the emergency room she was noted to have abnormal renal functions and mild troponin elevation. The patient denies any chest discomfort or history of coronary artery disease. She has occasional peripheral edema. She denies any dizziness, palpitations or syncope. She denies any history of arrhythmia. She has dyspnea on exertion, cough and wheezing. She was in sinus mechanism on presentation. Her coronary risk factors are positive for a history of hypertension and chronic tobacco use. The patient was in the hospital in August 2021 and underwent a stress test test revealed no evidence of inducible ischemia, her systolic function was preserved. Her renal function were normal in September of this year March 22: The patient is feeling better today, she continues to have dyspnea but mildly b fernanda. She denies any chest discomfort, she denies any dizziness or palpitations. She denies any nausea. She continues to be in sinus mechanism. Her echocardiogram showed a normal left ventricle systolic function with mild tricuspid regurgitation and no evidence of pulmonary hypertension. Medications: Aspirin, Lipitor 40 mg daily, hydralazine 50 mg twice a day, propranolol 20 mg twice daily, sodium bicarb PHYSICAL EXAMINATION: Blood pressure 168/60 heart rate 57 LUNGS: Decreased air exchange HEART: Regular rate and rhythm, S1, S2. No S3. Systolic ejection murmur ABDOMEN: Soft, nontender, no organomegaly EXTREMETIES: No edema LAB: BUN 45, creatinine 1.5 for, potassium 3.2, blood sugar 272 IMPRESSION: 1. Acute renal injury, improved 2. Hypertension 3. Hyperlipidemia 4. Prior history of smoking 5. Troponin elevation secondary to renal failure, no evidence of acute coronary syndrome PLAN: 1. Follow blood pressure and adjust the dose of hydralazine 2. Follow her renal functions 3. Increase physical activity 4. Depending on her progress consider a stress test as an outpatient Objective - Vital Signs Vital signs: Vital Signs Temp 98.0 F 03/22/23 12:01 Pulse 57 L 03/22/23 12:01 Resp 16 03/22/23 12:01 BP 168/65 03/22/23 12:01 Pulse Ox 96 03/22/23 12:01 FiO2 21 03/22/23 08:35 Intake & Output 03/21/23 03/22/23 03/22/23 18:59 06:59 18:59 Intake Total 358 240 Output Total 575 500 Balance -217 -260 Intake: Oral 358 240 Output: Urine 575 500 Other: Voiding Method Incontinent Incontinent Incontinent External Catheter External Catheter External Catheter # Voids 2 - Labs CBC & Chem 7: 03/22/23 07:39 03/22/23 07:39 Labs: Abnormal Lab Results - Last 24 Hours (Table) 03/22/23 03/22/23 03/22/23 Range/Units 07:39 07:39 07:39 WBC 12.0 H (3.8-10.6) k/uL RBC 3.59 L (3.80-5.40) m/uL MCV 100.8 H (80.0-100.0) fL Plt Count 88 L (150-450) k/uL Neutrophils # 9.9 H (1.3-7.7) k/uL Sodium 126 L (137-145) mmol/L Potassium 3.2 L (3.5-5.1) mmol/L Carbon Dioxide 18 L (22-30) mmol/L BUN 45 H (7-17) mg/dL Creatinine 1.54 H (0.52-1.04) mg/dL Osmolality 272 L (280-301) mosm/kg Calcium 7.9 L (8.4-10.2) mg/dL Alkaline Phosphatase 138 H (38-126) U/L Total Protein 4.4 L (6.3-8.2) g/dL Albumin 2.2 L (3.5-5.0) g/dL Microbiology - Last 24 Hours (Table) 03/20/23 16:20 Blood Culture Gram Stain - Preliminary Blood Blood Culture - Preliminary Gram Neg Bacilli 03/20/23 16:15 Blood Culture Gram Stain - Preliminary Blood Blood Culture - Preliminary Gram Neg Bacilli
[2023-03-22] MEDS: AZTREONAM 2 GM in SODIUM CHLORIDE 0.9% 100 ML IVPB SCH ×2 (13:13→23:01)
[2023-03-22] MEDS: IPRATROPIUM-ALBUTEROL 3 ML NEB INHALATION PRN (16:13)
--- NOTE | 2023-03-22 16:44 | XR ---
EXAMINATION TYPE: XR chest 1V portable DATE OF EXAM: 03/22/2023 Comparison: 03/20/2023 Clinical History: 77-year-old female with CHF Findings: ACDF hardware. Heart borderline enlarged. Interstitial prominence is similar. Mild patchy right basil ar densities. Impression: Borderline heart size. Interstitial prominence could represent mild pulmonary vascular congestion. No robert pulmonary edema.
[2023-03-22] MEDS: ASPIRIN 81 MG PO SCH (21:40)
[2023-03-22] MEDS: FAMOTIDINE 20 MG TAB PO SCH (21:40)
--- NOTE | 2023-03-22 22:51 | PN ---
PROGRESS NOTE DATE OF SERVICE: 03/22/2023 SUBJECTIVE: This is a 77-year-old woman, who was admitted with acute UTI, also had some dehydration. The patient complains of shortness of breath and cough also. Recommend to initiate bronchodilators and stat x-ray for CHF and we will continue to monitor. PAST MEDICAL HISTORY: Reviewed. REVIEW OF SYSTEMS: Could not be taken. The patient is confused. HOME MEDICATIONS: Reviewed include Lipitor, dose and rest of medications noted. PHYSICAL EXAMINATION: VITAL SIGNS: Pulse is 57, blood pressure 168/60, respirations 16. HEENT: Conjunctivae normal. NECK: No JVD. CARDIOVASCULAR: S1, S2. RESPIRATIONS: Breath sounds diminished at the bases. Scattered rhonchi. ABDOMEN: Soft. NERVOUS SYSTEM: Nonfocal. LABORATORY DATA: Sodium 110, potassium 3.2. The rest of the labs are noted. ASSESSMENT: 1. Acute urinary tract infection with possible sepsis present on admission. 2. Dehydration with acute renal failure with acute tubular necrosis, present on admission. 3. Rule out congestive heart failure or chronic obstructive pulmonary disease. 4. Troponin 0.016, indeterminate. No evidence of acute coronary syndrome per Cardiology. 5. Hyponatremia. 6. Hypokalemia. 7. Increased WBC. 8. Dementia. 9. Hypertension. 10.Hyperlipidemia. 11.Multiple medical issues. RECOMMENDATIONS: Recommend to continue current medications and continue symptomatic treatment. Otherwise, at this time, I recommend continue with potassium and magnesium replacement protocols. Otherwise, repeat labs. Prognosis guarded because of multiple complex medical issues. Further recommendations to follow. MMODL / IJN: [id number] /
[2023-03-23] MEDS: IPRATROPIUM-ALBUTEROL 3 ML NEB INHALATION PRN ×4 (08:25→21:26)
[2023-03-23] MEDS: LOPERAMIDE 2 MG CAP PO SCH (08:37)
[2023-03-23] MEDS: hydrALAZINE HCL 50 MG TAB PO SCH ×2 (08:37→20:45)
[2023-03-23] MEDS: SODIUM BICARBONATE TAB 650 MG TAB PO SCH ×3 (08:37→20:45)
[2023-03-23] MEDS: PROPRANOLOL 20 MG TAB PO SCH ×2 (08:37→20:48)
[2023-03-23] MEDS: ATORVASTATIN 40 MG TAB PO SCH (08:38)
[2023-03-23] MEDS: MULTIVITAMINS, THERA 1 EACH TAB PO SCH (08:38)
[2023-03-23 09:30] LABS: Basophils # (A) 0.1 k/uL (0-0.2); Basophils % (A) 0 %; Eosinophils % (A) 0 %; HCT 37.9 % (34.0-46.0); HGB 12.8 gm/dL (11.4-16.0); Lymphocytes # (A) 1.1 k/uL (1.0-4.8); Lymphocytes % (A) 9 %; MCH 33.5 pg (25.0-35.0); MCHC 33.8 g/dL (31.0-37.0); MCV 99.1 fL (80.0-100.0); Monocytes # (A) 0.9 k/uL (0-1.0); Monocytes % (A) 7 %; Neutrophils # (A) 10.8 k/uL (1.3-7.7); Neutrophils % (A) 82 %; RBC 3.83 m/uL (3.80-5.40); WBC 13.2 k/uL (3.8-10.6)
[2023-03-23 09:33] LABS: Platelet Count 99 k/uL (150-450)
[2023-03-23 10:40] LABS: African American GFR (CKD) 46 (>60 ml/min/1.73 sqM); Anion Gap 8 mmol/L; Blood Urea Nitrogen 40 mg/dL (7-17); Calcium 7.8 mg/dL (8.4-10.2); Carbon Dioxide 17 mmol/L (22-30); Chloride 101 mmol/L (98-107); Glucose 172 mg/dL (74-99); Magnesium 1.9 mg/dL (1.6-2.3); Non-African American GFR(CKD) 40 (>60 ml/min/1.73 sqM); Potassium 3.4 mmol/L (3.5-5.1); Sodium 126 mmol/L (137-145)
[2023-03-23] MEDS: AZTREONAM 2 GM in SODIUM CHLORIDE 0.9% 100 ML IVPB SCH (12:23)
--- NOTE | 2023-03-23 12:24 | P.PN ---
Subjective Patient is seen for follow-up for acute kidney injury. Renal function has been improving. Maintained on IV fluids. Patient has an external catheter 24 hour urine documented at 1075 mL. Sodium is 126 today. Serum creatinine decreased to 1.28. Objective - Vital Signs Vital signs: Vital Signs Temp 98.1 F 03/23/23 08:36 Pulse 65 03/23/23 12:10 Resp 18 03/23/23 12:10 BP 136/76 03/23/23 12:10 Pulse Ox 100 03/23/23 12:10 FiO2 21 03/23/23 08:28 Intake & Output 03/22/23 03/23/23 03/23/23 18:59 06:59 18:59 Intake Total 220 110 Output Total 200 350 Balance 20 -350 110 Intake: IV 20 Invasive Line 2 10 Invasive Line 3 10 Oral 220 90 Output: Urine 200 350 Other: Voiding Method Incontinent Incontinent Incontinent External Catheter External Catheter External Catheter - Exam Patient is awake, comfortable, no acute distress Examination of the heart S1 and S2 Examination of the lungs decreased breath sounds at the bases Abdomen is soft nontender Exertion lower ex Mittie shows no significant edema - Labs CBC & Chem 7: 03/23/23 08:56 03/23/23 08:56 Labs: Abnormal Lab Results - Last 24 Hours (Table) 03/22/23 03/22/23 03/23/23 Range/Units 07:39 15:33 08:56 WBC 13.2 H (3.8-10.6) k/uL Plt Count 99 L (150-450) k/uL Neutrophils # 10.8 H (1.3-7.7) k/uL Sodium 126 L (137-145) mmol/L Potassium 3.2 L (3.5-5.1) mmol/L Carbon Dioxide 18 L (22-30) mmol/L BUN 45 H (7-17) mg/dL Creatinine 1.54 H (0.52-1.04) mg/dL Glucose (74-99) mg/dL Calcium 7.9 L (8.4-10.2) mg/dL Alkaline Phosphatase 138 H (38-126) U/L Total Protein 4.4 L (6.3-8.2) g/dL Albumin 2.2 L (3.5-5.0) g/dL Ur Random Sodium 30 L (40-220) mmol/L 03/23/23 Range/Units 08:56 WBC (3.8-10.6) k/uL Plt Count (150-450) k/uL Neutrophils # (1.3-7.7) k/uL Sodium 126 L (137-145) mmol/L Potassium 3.4 L (3.5-5.1) mmol/L Carbon Dioxide 17 L (22-30) mmol/L BUN 40 H (7-17) mg/dL Creatinine 1.28 H (0.52-1.04) mg/dL Glucose 172 H (74-99) mg/dL Calcium 7.8 L (8.4-10.2) mg/dL Alkaline Phosphatase (38-126) U/L Total Protein (6.3-8.2) g/dL Albumin (3.5-5.0) g/dL Ur Random Sodium (40-220) mmol/L Microbiology - Last 24 Hours (Table) 03/20/23 13:48 Urine Culture - Final Urine,Catheterized Escherichia coli 03/20/23 16:15 Blood Culture Gram Stain - Final Blood Blood Culture - Final Escherichia coli 03/20/23 16:20 Blood Culture Gram Stain - Final Blood Blood Culture - Final Escherichia coli Assessment and Plan Assessment: 1. Acute kidney injury mostly prerenal secondary to hypovolemia from poor intake and diuretic use, severe sepsis improving with IV hydration. Creatinine 2.38 on admission and is 1.2 today. Baseline creatinine near 1 from September 2022. No hydronephrosis noted on kidney ultrasound. Right complex kidney cyst present which will need to be monitored outpatient. 2. Benign hypertension. 3. Hypovolemic hyponatremia further worsened with the use of thiazide diuretic. Sodium staying at about 126 mg/L. 4. Hypokalemia from poor intake and diuretic use. Being replaced. 5. Metabolic acidosis secondary to acute kidney injury and IV fluids. On oral bicarbonate. 6. Severe sepsis with gram-negative bacteremia on antibiotics. ID following. Urine and blood cultures are growing E. coli 7. Hypertension currently maintained on hydralazine. Plan: Continue with saline 1 g of sodium chloride by mouth Continue with sodium bicarb Repeat labs in a.m. Encourage increased oral intake. Check bladder scan and rule out urine retention
[2023-03-23] MEDS ORDERED: SODIUM CHLORIDE TAB 1 GM TAB PO STA (13:02)
--- NOTE | 2023-03-23 13:32 | P.PN ---
Subjective Progress Note Date: 03/22/23 Principal diagnosis: Gram negative bacteremia Patient is a 77-year-old female with a past medical history significant hypertension hyperlipidemia reflux and dementia patient presenting to the hospital for evaluation of fatigue and drowsiness, patient did have a positive UA , patient also have a positive blood culture and multiple antibiotic ALLERGIES. On today's evaluation and that is 03/22/2023, the patient is afebrile the patient is more awake and alert she is breathing comfortably on room air no chest pain shortness of breath or cough no bone pain and no diarrhea has been reported Objective - Vital Signs Vital signs: Vital Signs Temp 98.1 F 03/22/23 08:00 Pulse 64 03/22/23 08:00 Resp 16 03/22/23 08:00 BP 170/73 03/22/23 08:00 Pulse Ox 96 03/22/23 08:35 FiO2 21 03/22/23 08:35 Intake & Output 03/21/23 03/22/23 03/22/23 18:59 06:59 18:59 Intake Total 358 240 Output Total 575 500 Balance -217 -260 Intake: Oral 358 240 Output: Urine 575 500 Other: Voiding Method Incontinent Incontinent Incontinent External Catheter External Catheter External Catheter # Voids 2 - Exam GENERAL DESCRIPTION: An elderly female lying in bed in no distress RESPIRATORY SYSTEM: Unlabored breathing , decreased breath sounds at bases HEART: S1 S2 regular rate and rhythm , ABDOMEN: Soft , no tenderness EXTREMITIES: No edema feet - Labs CBC & Chem 7: 03/23/23 08:56 03/23/23 08:56 Labs: Abnormal Lab Results - Last 24 Hours (Table) 03/22/23 03/22/23 Range/Units 07:39 07:39 WBC 12.0 H (3.8-10.6) k/uL RBC 3.59 L (3.80-5.40) m/uL MCV 100.8 H (80.0-100.0) fL Plt Count 88 L (150-450) k/uL Neutrophils # 9.9 H (1.3-7.7) k/uL Sodium 126 L (137-145) mmol/L Potassium 3.2 L (3.5-5.1) mmol/L Carbon Dioxide 18 L (22-30) mmol/L BUN 45 H (7-17) mg/dL Creatinine 1.54 H (0.52-1.04) mg/dL Calcium 7.9 L (8.4-10.2) mg/dL Alkaline Phosphatase 138 H (38-126) U/L Total Protein 4.4 L (6.3-8.2) g/dL Albumin 2.2 L (3.5-5.0) g/dL Microbiology - Last 24 Hours (Table) 03/20/23 16:20 Blood Culture Gram Stain - Preliminary Blood Blood Culture - Preliminary Gram Neg Bacilli 03/20/23 16:15 Blood Culture Gram Stain - Preliminary Blood Blood Culture - Preliminary Gram Neg Bacilli Assessment and Plan (1) Gram-negative bacteremia Current Visit: Yes Status: Acute Code(s): R78.81 - BACTEREMIA SNOMED Code(s): 888165801749 (2) Renal insufficiency Current Visit: Yes Status: Acute Code(s): N28.9 - DISORDER OF KIDNEY AND URETER, UNSPECIFIED SNOMED Code(s): 767377324 (3) Allergy to multiple antibiotics Current Visit: Yes Status: Acute Code(s): Z88.1 - ALLERGY STATUS TO OTHER ANTIBIOTIC AGENTS SNOMED Code(s): 700345838 (4) Urinary tract infection Current Visit: Yes Status: Acute Code(s): N39.0 - URINARY TRACT INFECTION, SITE NOT SPECIFIED SNOMED Code(s): 53054531 Plan: 1patient with gram-negative bacteremia in this patient with significantly positive urinary symptoms with elevated creatinine concerning for possible complicated UTI to be the likely etiology of this gram-negative bacteremia patient abdominal soft medical examination and no evidence of any pneumonia clinically no cellulitis or joint swelling 2patient with multiple antibiotic allergies that would limit the number of antibiotics safe to use-, renal insufficiency high risk of nephrotoxicity 3patient to continue with Azactam 2 g every 12 hours, dose has been adjusted to her kidney function while waiting for the cultures to finalize Dictation was produced using [employer] dictation software. please excuse any grammatical, word or spelling errors. Time with Patient: Less than 30
--- NOTE | 2023-03-23 13:35 | P.PN ---
Subjective Progress Note Date: 03/23/23 Principal diagnosis: Gram negative bacteremia Patient is a 77-year-old female with a past medical history significant hypertension hyperlipidemia reflux and dementia patient presenting to the hospital for evaluation of fatigue and drowsiness, patient did have a positive UA , patient also have a positive blood culture and multiple antibiotic ALLERGIES. On today's evaluation and that is 03/23/2023, the patient remains to be afebrile, the patient is breathing comfortably on room air, the patient denies chest pain shortness of breath or cough no bone pain and no diarrhea has been reported Objective - Vital Signs Vital signs: Vital Signs Temp 98.1 F 03/23/23 08:36 Pulse 63 03/23/23 08:41 Resp 16 03/23/23 08:41 BP 145/76 03/23/23 08:36 Pulse Ox 100 03/23/23 08:36 FiO2 21 03/23/23 08:28 Intake & Output 03/22/23 03/23/23 03/23/23 18:59 06:59 18:59 Intake Total 220 110 Output Total 200 350 Balance 20 -350 110 Intake: IV 20 Invasive Line 2 10 Invasive Line 3 10 Oral 220 90 Output: Urine 200 350 Other: Voiding Method Incontinent Incontinent Incontinent External Catheter External Catheter External Catheter - Exam GENERAL DESCRIPTION: An elderly female lying in bed in no distress RESPIRATORY SYSTEM: Unlabored breathing , decreased breath sounds at bases HEART: S1 S2 regular rate and rhythm , ABDOMEN: Soft , no tenderness EXTREMITIES: No edema feet - Labs CBC & Chem 7: 03/23/23 08:56 03/23/23 08:56 Labs: Abnormal Lab Results - Last 24 Hours (Table) 03/22/23 03/22/23 03/22/23 Range/Units 07:39 07:39 15:33 WBC (3.8-10.6) k/uL Plt Count (150-450) k/uL Neutrophils # (1.3-7.7) k/uL Sodium 126 L (137-145) mmol/L Potassium 3.2 L (3.5-5.1) mmol/L Carbon Dioxide 18 L (22-30) mmol/L BUN 45 H (7-17) mg/dL Creatinine 1.54 H (0.52-1.04) mg/dL Glucose (74-99) mg/dL Osmolality 272 L (280-301) mosm/kg Calcium 7.9 L (8.4-10.2) mg/dL Alkaline Phosphatase 138 H (38-126) U/L Total Protein 4.4 L (6.3-8.2) g/dL Albumin 2.2 L (3.5-5.0) g/dL Ur Random Sodium 30 L (40-220) mmol/L 03/23/23 03/23/23 Range/Units 08:56 08:56 WBC 13.2 H (3.8-10.6) k/uL Plt Count 99 L (150-450) k/uL Neutrophils # 10.8 H (1.3-7.7) k/uL Sodium 126 L (137-145) mmol/L Potassium 3.4 L (3.5-5.1) mmol/L Carbon Dioxide 17 L (22-30) mmol/L BUN 40 H (7-17) mg/dL Creatinine 1.28 H (0.52-1.04) mg/dL Glucose 172 H (74-99) mg/dL Osmolality (280-301) mosm/kg Calcium 7.8 L (8.4-10.2) mg/dL Alkaline Phosphatase (38-126) U/L Total Protein (6.3-8.2) g/dL Albumin (3.5-5.0) g/dL Ur Random Sodium (40-220) mmol/L Microbiology - Last 24 Hours (Table) 03/20/23 16:15 Blood Culture Gram Stain - Final Blood Blood Culture - Final Escherichia coli 03/20/23 16:20 Blood Culture Gram Stain - Final Blood Blood Culture - Final Escherichia coli 03/20/23 13:48 Urine Culture - Preliminary Urine,Catheterized Gram Neg Bacilli Assessment and Plan (1) Gram-negative bacteremia Current Visit: Yes Status: Acute Code(s): R78.81 - BACTEREMIA SNOMED Co de(s): 995922832280 (2) Renal insufficiency Current Visit: Yes Status: Acute Code(s): N28.9 - DISORDER OF KIDNEY AND URETER, UNSPECIFIED SNOMED Code(s): 768564712 (3) Allergy to multiple antibiotics Current Visit: Yes Status: Acute Code(s): Z88.1 - ALLERGY STATUS TO OTHER ANTIBIOTIC AGENTS SNOMED Code(s): 097223853 (4) Urinary tract infection Current Visit: Yes Status: Acute Code(s): N39.0 - URINARY TRACT INFECTION, SITE NOT SPECIFIED SNOMED Code(s): 26747907 Plan: 1patient with gram-negative bacteremia in this patient with significantly positive urinary symptoms with elevated creatinine concerning for possible complicated UTI to be the likely etiology of this gram-negative bacteremia patient abdominal soft medical examination and no evidence of any pneumonia clinically no cellulitis or joint swelling 2patient with multiple antibiotic allergies that would limit the number of antibiotics safe to use-, renal insufficiency high risk of nephrotoxicity, ultrasound of the kidneys were negative for any hydronephrosis 3patient urine and blood cultures came back. E. coli which is a sensitive pathogen however the patient do have multiple ALLERGIES, patient to continue with Azactam 2 g every 12 hours, can be switched to Invanz 1 g daily for discharge Dictation was produced using [employer] dictation software. please excuse any grammatical, word or spelling errors. Time with Patient: Less than 30
[2023-03-23] MEDS ORDERED: POTASSIUM CHLORIDE ER 20 MEQ TAB.ER PO STA (14:41)
--- NOTE | 2023-03-23 15:05 | P.PN ---
Subjective PROGRESS NOTE The patient is a 77-year-old female with known history of chronic tobacco use who presented with symptoms of progressive dyspnea and fatigue. She stopped smoking less than a week ago. In the emergency room she was noted to have abno rmal renal functions and mild troponin elevation. The patient denies any chest discomfort or history of coronary artery disease. She has occasional peripheral edema. She denies any dizziness, palpitations or syncope. She denies any history of arrhythmia. She has dyspnea on exertion, cough and wheezing. She was in sinus mechanism on presentation. Her coronary risk factors are positive for a history of hypertension and chronic tobacco use. The patient was in the hospital in August 2021 and underwent a stress test test revealed no evidence of inducible ischemia, her systolic function was preserved. Her renal function were normal in September of this year March 22: The patient is feeling better today, she continues to have dyspnea but mildly better. She denies any chest discomfort, she denies any dizziness or palpitations. She denies any nausea. She continues to be in sinus mechanism. Her echocardiogram showed a normal left ventricle systolic function with mild tricuspid regurgitation and no evidence of pulmonary hypertension. 03/23 Patient seen and examined. Patient denies any chest pain or pressure. Does still have chronic dyspnea somewhat with exertion. Echo which showed preserved EF. Blood pressures predominantly in the 120s and 130s. Creatinine continues improved. PHYSICAL EXAMINATION: Blood pressure 168/60 heart rate 57 LUNGS: Decreased air exchange HEART: Regular rate and rhythm, S1, S2. No S3. Systolic ejection murmur ABDOMEN: Soft, nontender, no organomegaly EXTREMETIES: No edema IMPRESSION: 1. Acute renal injury, improved 2. Hypertension 3. Hyperlipidemia 4. Prior history of smoking 5. Troponin elevation secondary to renal failure, no evidence of acute coronary syndrome PLAN: Blood pressure appears stable and creatinine continues improved. Does not appear to have any significant edema. Some of her dyspnea is with exertion and consider workup as an outpatient with stress testing. Objective - Vital Signs Vital signs: Vital Signs Temp 98.1 F 03/23/23 08:36 Pulse 65 03/23/23 12:10 Resp 18 03/23/23 12:10 BP 136/76 03/23/23 12:10 Pulse Ox 100 03/23/23 12:10 FiO2 21 03/23/23 08:28 Intake & Output 03/22/23 03/23/23 03/23/23 18:59 06:59 18:59 Intake Total 220 110 Output Total 200 350 220 Balance 20 -350 -110 Intake: IV 20 Invasive Line 2 10 Invasive Line 3 10 Oral 220 90 Output: Urine 200 350 220 Other: Voiding Method Incontinent Incontinent Incontinent External Catheter External Catheter External Catheter - Labs CBC & Chem 7: 03/23/23 08:56 03/23/23 08:56 Labs: Abnormal Lab Results - Last 24 Hours (Table) 03/22/23 03/22/23 03/23/23 Range/Units 07:39 15:33 08:56 WBC 13.2 H (3.8-10.6) k/uL Plt Count 99 L (150-450) k/uL Neutrophils # 10.8 H (1.3-7.7) k/uL Sodium 126 L (137-145) mmol/L Potassium 3.2 L (3.5-5.1) mmol/L Carbon Dioxide 18 L (22-30) mmol/L BUN 45 H (7-17) mg/dL Creatinine 1.54 H (0.52-1.04) mg/dL Glucose (74-99) mg/dL Calcium 7.9 L (8.4-10.2) mg/dL Alkaline Phosphatase 138 H (38-126) U/L Total Protein 4.4 L (6.3-8.2) g/dL Albumin 2.2 L (3.5-5.0) g/dL Ur Random Sodium 30 L (40-220) mmol/L 03/23/23 Range/Units 08:56 WBC (3.8-10.6) k/uL Plt Count (150-450) k/uL Neutrophils # (1.3-7.7) k/uL Sodium 126 L (137-145) mmol/L Potassium 3.4 L (3.5-5.1) mmol/L Carbon Dioxide 17 L (22-30) mmol/L BUN 40 H (7-17) mg/dL Creatinine 1.28 H (0.52-1.04) mg/dL Glucose 172 H (74-99) mg/dL Calcium 7.8 L (8.4-10.2) mg/dL Alkaline Phosphatase (38-126) U/L Total Protein (6.3-8.2) g/dL Albumin (3.5-5.0) g/dL Ur Random Sodium (40-220) mmol/L Microbiology - Last 24 Hours (Table) 03/20/23 13:48 Urine Culture - Final Urine,Catheterized Escherichia coli 03/20/23 16:15 Blood Culture Gram Stain - Final Blood Blood Culture - Final Escherichia coli 03/20/23 16:20 Blood Culture Gram Stain - Final Blood Blood Culture - Final Escherichia coli
[2023-03-23] MEDS: SODIUM CHLORIDE 0.9% 1,000 ML IV SCH ×2 (16:19→20:46)
[2023-03-23] MEDS: ASPIRIN 81 MG PO SCH (20:45)
[2023-03-23] MEDS: FAMOTIDINE 20 MG TAB PO SCH (20:45)
[2023-03-24] MEDS: AZTREONAM 2 GM in SODIUM CHLORIDE 0.9% 100 ML IVPB SCH ×2 (02:08→13:00)
--- NOTE | 2023-03-24 07:15 | P.PN ---
Subjective Progress Note Date: 03/23/23 This is a pleasant 77-year-old female who was recently admitted with acute urinary tract infection with some dehydration and kidney injury being closely monitored with multiple medical consultations. Patient is continued on antibiotics and awaiting finalized cultures are showing E. coli. Patient with s ignificant ALLERGIES with infectious disease following planning on possible IV antibiotics on discharge and will receive a midline. Patient is afebrile denies chest pain or shortness of breath. No reports of nausea or vomiting and patient tolerating diet. Oral intake is fair and encouraged oral intake and increased activity as tolerated. Patient with weakness will have physical therapy evaluat e the patient. Review of systems: Constitutional: No reports of fatigue, fever, or chills Cardiovascular: No reports of chest pain or palpitations Respiratory: No reports of shortness of breath or cough GI: No reports of nausea, no reports of vomiting, no diarrhea : No reports of dysuria or retention Neurovascular: reports of generalized weakness All medications have been reviewed PHYSICAL EXAMINATION: GENERAL: The patient is alert and oriented x2, Well developed, well nourished. Elderly-appearing HEENT: Pupils are round and equally reacting to light. EOMI. no scleral icterus. No conjunctival pallor. Normocephalic, atraumatic. No pharyngeal erythema. No thyromegaly. CARDIOVASCULAR: S1 and S2 muffled PULMONARY: diminished breath sounds bilaterally with no wheezing or rhonchi noted. ABDOMEN: soft. Nontender on exam. obese. non-distended, normoactive bowel sounds. No palpable organomegaly. MUSCULOSKELETAL: No joint swelling or deformity. EXTREMITIES: No cyanosis, clubbing, or pedal edema. NEUROLOGICAL: Gross neurological examination did not reveal any focal deficits. Diffuse weakness SKIN: No rashes. Assessment: Acute urinary tract infection with sepsis, present on admission, cultures growing E. coli Dehydration with acute renal failure with acute tubular necrosis, present on admission Possible congestive heart failure with preserved EF Troponin 0.016 indeterminate no evidence of ACS per cardiology Hyponatremia likely secondary to poor solute intake Hypokalemia, improved Leukocytosis most likely secondary to urinary tract infection Dementia Hypertension Hyperlipidemia GI prophylaxis DVT prophylaxis Full code Plan: Recommend to continue with current medications and management of medical consultations following Patient is maintained on antibiotics and will require a midline for 10 days of antibiotics given patient's significant ALLERGIES to medications recommending 10 days of Invanz 1 g daily. Case management following working on Cre[facility] horization and arranging for home care as son will be able to provide antibiotics for the patient. Patient reporting weakness and difficulty with ambulation physical therapy evaluated the patient and would not qualify for rehab Will follow-up with repeat labs and discuss possible discharge in the next 24 hours Due to multiple complex medical issues, prognosis is guarded The impression and plan of care has been dictated by Raisa Bates, nurse practitioner as directed. Dr. Rosalind MD I have performed a history and examination and MDM of this patient, discussed the same with the dictator, and agree with the dictator's assessment and plan as written ,documented as a scribe. Based on total visit time, I have performed more than 50% of the visit. Any additional findings or plans will be noted. Objective - Vital Signs Vital signs: Vital Signs Temp 98.1 F 03/23/23 08:36 Pulse 63 03/23/23 08:41 Resp 16 03/23/23 08:41 BP 145/76 03/23/23 08:36 Pulse Ox 100 03/23/23 08:36 FiO2 21 03/23/23 08:28 Intake & Output 03/22/23 03/23/23 03/23/23 18:59 06:59 18:59 Intake Total 220 110 Output Total 200 350 Balance 20 -350 110 Intake: IV 20 Invasive Line 2 10 Invasive Line 3 10 Oral 220 90 Output: Urine 200 350 Other: Voiding Method Incontinent Incontinent Incontinent External Catheter External Catheter External Catheter - Labs CBC & Chem 7: 03/23/23 08:56 03/23/23 08:56 Labs: Abnormal Lab Results - Last 24 Hours (Table) 03/22/23 03/23/23 Range/Units 07:39 08:56 WBC 13.2 H (3.8-10.6) k/uL Plt Count 99 L (150-450) k/uL Neutrophils # 10.8 H (1.3-7.7) k/uL Osmolality 272 L (280-301) mosm/kg Microbiology - Last 24 Hours (Table) 03/20/23 16:15 Blood Culture Gram Stain - Final Blood Blood Culture - Final Escherichia coli 03/20/23 16:20 Blood Culture Gram Stain - Final Blood Blood Culture - Final Escherichia coli 03/20/23 13:48 Urine Culture - Preliminary Urine,Catheterized Gram Neg Bacilli
[2023-03-24] MEDS: IPRATROPIUM-ALBUTEROL 3 ML NEB INHALATION PRN ×3 (07:52→15:18)
[2023-03-24 08:20] VITALS: TEMP 97.7
[2023-03-24] MEDS: ATORVASTATIN 40 MG TAB PO SCH (08:20)
[2023-03-24] MEDS: MULTIVITAMINS, THERA 1 EACH TAB PO SCH (08:20)
[2023-03-24] MEDS: PROPRANOLOL 20 MG TAB PO SCH (08:20)
[2023-03-24] MEDS: SODIUM BICARBONATE TAB 650 MG TAB PO SCH (08:20)
[2023-03-24] MEDS: LOPERAMIDE 2 MG CAP PO SCH (08:20)
[2023-03-24] MEDS: hydrALAZINE HCL 50 MG TAB PO SCH (08:20)
[2023-03-24 09:03] LABS: HCT 35.6 % (34.0-46.0); HGB 11.8 gm/dL (11.4-16.0); MCV 99.9 fL (80.0-100.0); Platelet Count 144 k/uL (150-450); RBC 3.56 m/uL (3.80-5.40); WBC 17.2 k/uL (3.8-10.6)
[2023-03-24 10:42] LABS: Band Neutrophils % 2 %; Lymphocytes # (M) 1.03 k/uL (1.0-4.8); Metamyelocytes # (M) 0.52 k/uL (0); Metamyelocytes % 3 %; Monocytes # (M) 1.03 k/uL (0-1.0); Myelocytes # (M) 0.17 k/uL (0); Myelocytes % 1 %; Neutrophils % (M) 84 %; Nucleated Red Blood Cells 0 /100 WBC (0-0); Total Cells Counted 200
[2023-03-24 10:55] LABS: African American GFR (CKD) 41 (>60 ml/min/1.73 sqM); Anion Gap 5 mmol/L; Blood Urea Nitrogen 36 mg/dL (7-17); Calcium 8.3 mg/dL (8.4-10.2); Carbon Dioxide 22 mmol/L (22-30); Chloride 101 mmol/L (98-107); Glucose 115 mg/dL (74-99); Magnesium 1.9 mg/dL (1.6-2.3); Non-African American GFR(CKD) 36 (>60 ml/min/1.73 sqM); Potassium 3.9 mmol/L (3.5-5.1); Sodium 128 mmol/L (137-145)
--- NOTE | 2023-03-24 13:01 | P.PN ---
Subjective Patient is seen for follow-up for acute kidney injury. Renal function has been improving. Maintained on IV fluids. Patient has an external catheter 24 hour urine documented at 1170 mL. Creatinine at 1.4 from 1.28 yesterday. Sodium is increased to 128. Patient received a dose of sodium chloride tab yesterday. Objective - Vital Signs Vital signs: Vital Signs Temp 97.7 F 03/24/23 08:19 Pulse 72 03/24/23 11:43 Resp 18 03/24/23 08:19 BP 164/72 03/24/23 08:19 Pulse Ox 98 03/24/23 08:19 FiO2 21 03/24/23 07:53 Intake & Output 03/23/23 03/24/23 03/24/23 18:59 06:59 18:59 Intake Total 1010 1250 550 Output Total 220 950 Balance 790 300 550 Intake: IV 40 10 Invasive Line 2 20 Invasive Line 3 20 Invasive Line 4 10 Oral 970 1250 540 Output: Urine 220 950 Other: Voiding Method Incontinent Incontinent Incontinent External Catheter External Catheter External Catheter - Exam Patient is awake, comfortable, no acute distress Examination of the heart S1 and S2 Examination of the lungs decreased breath sounds at the bases Abdomen is soft nontender Exertion lower ex Mittie shows no significant edema - Labs CBC & Chem 7: 03/24/23 07:28 03/24/23 07:28 Labs: Abnormal Lab Results - Last 24 Hours (Table) 03/24/23 03/24/23 Range/Units 07:28 07:28 WBC 17.2 H (3.8-10.6) k/uL RBC 3.56 L (3.80-5.40) m/uL Plt Count 144 L (150-450) k/uL Neutrophils # (Manual) 14.70 H (1.3-7.7) k/uL Monocytes # (Manual) 1.03 H (0-1.0) k/uL Metamyelocytes # (Man) 0.52 H (0) k/uL Myelocytes # (Manual) 0.17 H (0) k/uL Sodium 128 L (137-145) mmol/L BUN 36 H (7-17) mg/dL Creatinine 1.40 H (0.52-1.04) mg/dL Glucose 115 H (74-99) mg/dL Calcium 8.3 L (8.4-10.2) mg/dL Microbiology - Last 24 Hours (Table) 03/20/23 13:48 Urine Culture - Final Urine,Catheterized Escherichia coli 03/20/23 16:15 Blood Culture Gram Stain - Final Blood Blood Culture - Final Escherichia coli 03/20/23 16:20 Blood Culture Gram Stain - Final Blood Blood Culture - Final Escherichia coli Assessment and Plan Assessment: 1. Acute kidney injury mostly prerenal secondary to hypovolemia from poor intake and diuretic use, severe sepsis improving with IV hydration. Creatinine 2.38 on admission and is 1.4 today. Baseline creatinine near 1 from September 2022. No hydronephrosis noted on kidney ultrasound. Right complex kidney cyst present which will need to be monitored outpatient. 2. Benign hypertension. 3. Hypovolemic hyponatremia further worsened with the use of thiazide diuretic. Sodium increased to 128 mg/L. 4. Hypokalemia from poor intake and diuretic use. Being replaced. 5. Metabolic acidosis secondary to acute kidney injury and IV fluids. On oral bicarbonate. 6. Severe sepsis with gram-negative bacteremia on antibiotics. ID following. Urine and blood cultures are growing E. coli 7. Hypertension currently maintained on hydralazine. Plan: Continue with saline Continue with sodium bicarb Repeat labs in a.m. Encourage increased oral intake. No urine retention on bladder scan.
[2023-03-24] MEDS ORDERED: ERTAPENEM 0.5 GM in SODIUM CHLORIDE 0.9% 50 ML IVPB SCH (14:00)
[2023-03-24 14:34] VITALS: BP 160/97; RESP 16
[2023-03-24] MEDS: SODIUM CHLORIDE 0.9% 1,000 ML IV SCH (14:48)
[2023-03-24 15:20] VITALS: PULSE 74
--- NOTE | 2023-03-24 15:25 | P.PN ---
Subjective Progress Note Date: 03/24/23 PROGRESS NOTE The patient is a 77-year-old female with known history of chronic tobacco use who presented with symptoms of progressive dyspnea and fatigue. She stopped smoking less than a week ago. In the emergency room she was noted to have abnormal renal functions and mild troponin elevation. The patient denies any chest discomfort or history of coronary artery disease. She has occasional peripheral edema. She denies any dizziness, palpitations or syncope. She denies any history of arrhythmia. She has dyspnea on exertion, cough and wheezing. She was in sinus mechanism on presentation. Her coronary risk factors are positive for a history of hypertension and chronic tobacco use. The patient was in the hospital in August 2021 and underwent a stress test test revealed no evidence of inducible ischemia, her systolic function was preserved. Her renal function were normal in September of this year March 22: The patient is feeling better today, she continues to have dyspnea but mildly b fernanda. She denies any chest discomfort, she denies any dizziness or palpitations. She denies any nausea. She continues to be in sinus mechanism. Her echocardiogram showed a normal left ventricle systolic function with mild tricuspid regurgitation and no evidence of pulmonary hypertension. 03/23 Patient seen and examined. Patient denies any chest pain or pressure. Does still have chronic dyspnea somewhat with exertion. Echo which showed preserved EF. Blood pressures predominantly in the 120s and 130s. Creatinine continues improved. 03/24 Patient seen and examined. Patient denies any chest pain or pressure. Patient is off oxygen. Her main concern is significant weakness and she states she has had some lightheadedness when she stands. She is a cough for months. PHYSICAL EXAMINATION: Blood pressure 164/72 heart rate 67 LUNGS: Decreased air exchange HEART: Regular rate and rhythm, S1, S2. No S3. Systolic ejection murmur ABDOMEN: Soft, nontender, no organomegaly EXTREMETIES: No edema IMPRESSION: 1. Acute renal injury, improved 2. Hypertension 3. Hyperlipidemia 4. Prior history of smoking 5. Troponin elevation secondary to renal failure, no evidence of acute coronary syndrome PLAN: continue current medications Some of her dyspnea is with exertion and consider workup as an outpatient with stress testing. Cardiology will sign off this case and follow on an as-needed basis. Please reconsult for any new concerns. Patient may follow-up in the office in one to 2 weeks. Nurse practitioner note has been reviewed, I agree with the documented findings and plan of care. Patient was seen and examined. Objective - Vital Signs Vital signs: Vital Signs Temp 97.7 F 03/24/23 08:19 Pulse 72 03/24/23 11:43 Resp 18 03/24/23 08:19 BP 164/72 03/24/23 08:19 Pulse Ox 98 03/24/23 08:19 FiO2 21 03/24/23 07:53 Intake & Output 03/23/23 03/24/23 03/24/23 18:59 06:59 18:59 Intake Total 1010 1250 550 Output Total 220 950 Balance 790 300 550 Intake: IV 40 10 Invasive Line 2 20 Invasive Line 3 20 Invasive Line 4 10 Oral 970 1250 540 Output: Urine 220 950 Other: Voiding Method Incontinent Incontinent Incontinent External Catheter External Catheter External Catheter - Labs CBC & Chem 7: 03/24/23 07:28 03/24/23 07:28 Labs: Abnormal Lab Results - Last 24 Hours (Table) 03/24/23 03/24/23 Range/Units 07:28 07:28 WBC 17.2 H (3.8-10.6) k/uL RBC 3.56 L (3.80-5.40) m/uL Plt Count 144 L (150-450) k/uL Neutrophils # (Manual) 14.70 H (1.3-7.7) k/uL Monocytes # (Manual) 1.03 H (0-1.0) k/uL Metamyelocytes # (Man) 0.52 H (0) k/uL Myelocytes # (Manual) 0.17 H (0) k/uL Sodium 128 L (137-145) mmol/L BUN 36 H (7-17) mg/dL Creatinine 1.40 H (0.52-1.04) mg/dL Glucose 115 H (74-99) mg/dL Calcium 8.3 L (8.4-10.2) mg/dL Microbiology - Last 24 Hours (Table) 03/20/23 13:48 Urine Culture - Final Urine,Catheterized Escherichia coli 03/20/23 16:15 Blood Culture Gram Stain - Final Blood Blood Culture - Final Escherichia coli 03/20/23 16:20 Blood Culture Gram Stain - Final Blood Blood Culture - Final Escherichia coli
--- NOTE | 2023-03-24 15:57 | P.PN ---
Subjective Progress Note Date: 03/24/23 Principal diagnosis: Gram negative bacteremia Patient is a 77-year-old female with a past medical history significant hypertension hyperlipidemia reflux and dementia patient presenting to the hospital for evaluation of fatigue and drowsiness, patient did have a positive UA , patient also have a positive blood culture and multiple antibiotic ALLERGIES. On today's evaluation and that is 03/24/2023, the patient continues to be afebrile, the patient is breathing comfortably on room air, the patient denies chest pain shortness of breath or cough , patient denies having any nausea no vomiting no abdominal pain and no diarrhea has been reported Objective - Vital Signs Vital signs: Vital Signs Temp 97.7 F 03/24/23 08:19 Pulse 72 03/24/23 11:43 Resp 18 03/24/23 08:19 BP 164/72 03/24/23 08:19 Pulse Ox 98 03/24/23 08:19 FiO2 21 03/24/23 07:53 Intake & Output 03/23/23 03/24/23 03/24/23 18:59 06:59 18:59 Intake Total 1010 1250 550 Output Total 220 950 Balance 790 300 550 Intake: IV 40 10 Invasive Line 2 20 Invasive Line 3 20 Invasive Line 4 10 Oral 970 1250 540 Output: Urine 220 950 Other: Voiding Method Incontinent Incontinent Incontinent External Catheter External Catheter External Catheter - Exam GENERAL DESCRIPTION: An elderly female lying in bed in no distress RESPIRATORY SYSTEM: Unlabored breathing , decreased breath sounds at bases HEART: S1 S2 regular rate and rhythm , ABDOMEN: Soft , no tenderness EXTREMITIES: No edema feet - Labs CBC & Chem 7: 03/24/23 07:28 03/24/23 07:28 Labs: Abnormal Lab Results - Last 24 Hours (Table) 03/24/23 03/24/23 Range/Units 07:28 07:28 WBC 17.2 H (3.8-10.6) k/uL RBC 3.56 L (3.80-5.40) m/uL Plt Count 144 L (150-450) k/uL Neutrophils # (Manual) 14.70 H (1.3-7.7) k/uL Monocytes # (Manual) 1.03 H (0-1.0) k/uL Metamyelocytes # (Man) 0.52 H (0) k/uL Myelocytes # (Manual) 0.17 H (0) k/uL Sodium 128 L (137-145) mmol/L BUN 36 H (7-17) mg/dL Creatinine 1.40 H (0.52-1.04) mg/dL Glucose 115 H (74-99) mg/dL Calcium 8.3 L (8.4-10.2) mg/dL Microbiology - Last 24 Hours (Table) 03/20/23 13:48 Urine Culture - Final Urine,Catheterized Escherichia coli 03/20/23 16:15 Blood Culture Gram Stain - Final Blood Blood Culture - Final Escherichia coli 03/20/23 16:20 Blood Culture Gram Stain - Final Blood Blood Culture - Final Escherichia coli Assessment and Plan (1) Gram-negative bacteremia Current Visit: Yes Status: Acute Code(s): R78.81 - BACTEREMIA SNOMED Code(s): 913590365002 (2) Renal insufficiency Current Visit: Yes Status: Acute Code(s): N28.9 - DISORDER OF KIDNEY AND URETER, UNSPECIFIED SNOMED Code(s): 221065780 (3) Allergy to multiple antibiotics Current Visit: Yes Status: Acute Code(s): Z88.1 - ALLERGY STATUS TO OTHER ANTIBIOTIC AGENTS SNOMED Code(s): 322731522 (4) Urinary tract infection Current Visit: Yes Status: Acute Code(s): N39.0 - URINARY TRACT INFECTION, SITE NOT SPECIFIED SNOMED Code(s): 03030869 Plan: 1patient with gram-negative bacteremia in this patient with significantly positive urinary symptoms with elevated creatinine concerning for possible complicated UTI to be the likely etiology of this gram-negative bacteremia patient abdominal soft medical examination and no evidence of any pneumonia clinically no cellulitis or joint swelling 2patient with multiple antibiotic allergies that would limit the number of antibiotics safe to use-, renal insufficiency high risk of nephrotoxicity, ultrasound of the kidneys were negative for any hydronephrosis 3patient urine and blood cultures came back. E. coli which is a sensitive pathogen however the patient do have multiple ALLERGIES, patient seemed #clinical improvement, antibiotic has been switched over to Invanz 1 g daily with a plan for total of 2 weeks course of therapy Questions Answered Dictation was produced using [employer] dictation software. please excuse any grammatical, word or spelling errors. Time with Patient: Less than 30
== END 2023-03-24 17:20 | disposition home health service (06) | DRG 871 ==
LOC: EC 13:17 → 3SCARD 15:44
PROVIDERS: ADMIT Hospitalist; ATTEND Hospitalist
PROC: 05HA33Z Insertion of Infusion Device into Left Brachial Vein, Percutaneous Approach (ICD-10-PCS; principal; 2023-03-24 07:30)
DX: A41.51 Sepsis due to Escherichia coli [E. coli] (principal); N17.0 Acute kidney failure with tubular necrosis; N39.0 Urinary tract infection, site not specified; E87.0 Hyperosmolality and hypernatremia; E87.1 Hypo-osmolality and hyponatremia; F03.94 Unspecified dementia, unspecified severity, with anxiety; T50.2X5A Adverse effect of carbonic-anhydrase inhibitors, benzothiadiazides and other diuretics, initial encounter; R65.20 Severe sepsis without septic shock; E78.5 Hyperlipidemia, unspecified; E86.0 Dehydration; E86.1 Hypovolemia; E87.6 Hypokalemia; F17.210 Nicotine dependence, cigarettes, uncomplicated; F41.0 Panic disorder [episodic paroxysmal anxiety]; F42.9 Obsessive-compulsive disorder, unspecified; R53.83 Other fatigue; I07.1 Rheumatic tricuspid insufficiency; F31.9 Bipolar disorder, unspecified; I10 Essential (primary) hypertension; Z79.899 Other long term (current) drug therapy; Z88.1 Allergy status to other antibiotic agents; Z86.79 Personal history of other diseases of the circulatory system; Z88.8 Allergy status to other drugs, medicaments and biological substances; X58.XXXA Exposure to other specified factors, initial encounter; G89.29 Other chronic pain; M54.50 Low back pain, unspecified; M25.562 Pain in left knee; M25.561 Pain in right knee; R79.89 Other specified abnormal findings of blood chemistry; J40 Bronchitis, not specified as acute or chronic; K58.9 Irritable bowel syndrome, unspecified; K29.70 Gastritis, unspecified, without bleeding; M19.90 Unspecified osteoarthritis, unspecified site; K21.9 Gastro-esophageal reflux disease without esophagitis; Z87.01 Personal history of pneumonia (recurrent); Z87.440 Personal history of urinary (tract) infections; Z98.42 Cataract extraction status, left eye; Z98.41 Cataract extraction status, right eye; Z96.1 Presence of intraocular lens; Z87.19 Personal history of other diseases of the digestive system; Z98.51 Tubal ligation status
CPT/HCPCS: 36415; 70450; 71045; 71046; 76770; 80048; 80053; 80306; 81001; 83735; 83930; 83935; 84132; 84300; 84443; 84481; 84484; 85025; 85610; 85730; 87040; 87077; 87086; 87186; 93005; 93306; 94640; 94760; 96365; 99285

== ENCOUNTER 2023-03-31 15:15 | Inpatient (IN) | payer MEDICARE ==
[2023-03-31] MEDS ORDERED: SODIUM CHLORIDE 0.9% 500 ML 500 ML IV STA (16:17)
[2023-03-31] MEDS ORDERED: oxyCODONE-APAP 5-325MG 1 EACH TAB PO STA (16:17)
[2023-03-31 16:50] LABS: Appearance,Urine Clear (Clear); Bilirubin,Urine Negative (Negative); Blood,Urine Negative (Negative); Color,Urine Light Yellow; Glucose,Urine (UA) Negative (Negative); Ketones,Urine Negative (Negative); Leukocyte Esterase,Urine Small (Negative); Nitrite,Urine Negative (Negative); PH, Urine 7.5 (5.0-8.0); Protein,Urine Negative (Negative); Specific Gravity,Urine 1.007 (1.001-1.035); Urobilinogen,Urine <2.0 mg/dL (<2.0)
[2023-03-31 16:53] LABS: Basophils % (A) 0 %; Eosinophils # (A) 0.1 k/uL (0-0.7); Eosinophils % (A) 1 %; HCT 32.5 % (34.0-46.0); HGB 10.8 gm/dL (11.4-16.0); Lymphocytes % (A) 22 %; MCH 32.9 pg (25.0-35.0); MCHC 33.1 g/dL (31.0-37.0); MCV 99.3 fL (80.0-100.0); Mean Platelet Volume 7.6; Monocytes # (A) 0.7 k/uL (0-1.0); Monocytes % (A) 8 %; Neutrophils # (A) 6.1 k/uL (1.3-7.7); Neutrophils % (A) 66 %; Platelet Count 283 k/uL (150-450); RBC 3.27 m/uL (3.80-5.40); RDW 14.2 % (11.5-15.5); WBC 9.2 k/uL (3.8-10.6)
--- NOTE | 2023-03-31 16:57 | ED ---
General Adult HPI - General Chief complaint: Weakness Stated complaint: Recheck Time Seen by Provider: 03/31/23 16:06 Source: patient Mode of arrival: ambulatory Limitations: no limitations - History of Present Illness Initial comments: 77-year-old female presenting with chief complaint of generalized weakness and midline blockage. Patient was recently admitted to our facility and discharged home with midline and daily Invanz orders. Patient currently has a home nurse who states that the midline has been repeatedly blocked, she was here recently and received Cathflo and discharged back. Her daughter at bedside states that the patient has been getting progressively weaker, she is unable to walk even short distances. She states that "my legs just give out". She has had some recent falls, unknown if there is been any head injury. No headache, vision or hearing changes, numbness, tingling, chest pain, difficulty breathing, abdominal pain, nausea, vomiting. - Related Data Home Medications Medication Instructions Recorded Confirmed busPIRone HCL 10 mg PO BID 11/09/19 03/31/23 Aspirin EC [Ecotrin Low Dose] 81 mg PO HS 08/23/21 03/31/23 FLUoxetine HCL 40 mg PO DAILY 08/23/21 03/31/23 Furosemide [Lasix] 20 mg PO DAILY PRN 08/23/21 03/31/23 HYDROcodone/APAP 7.5-325MG [Ebro 1 tab PO TID 08/23/21 03/31/23 7.5-325] Lactulose [Constulose] 10 gm PO DAILY PRN 08/23/21 03/31/23 Loperamide HCl [Imodium A-D] 2 mg PO DAILY 08/23/21 03/31/23 Melatonin 5 mg PO HS 08/23/21 03/31/23 Multivit with Calcium,Iron,Min 1 tab PO DAILY 08/23/21 03/31/23 [Women's Multivitamin] OLANZapine [ZyPREXA] 10 mg PO HS 08/23/21 03/31/23 Propranolol [Inderal] 20 mg PO BID 08/23/21 03/31/23 QUEtiapine [SEROquel] 75 mg PO HS 08/23/21 03/31/23 Tiotropium 2.5 Mcg/Puff [Spiriva 2 puff INHALATION RT-DAILY PRN 08/23/21 03/31/23 Respimat 2.5 Mcg] hydrOXYzine pamoate [Vistaril] 25 mg PO BID 08/23/21 03/31/23 Ergocalciferol [Vitamin D2 (1250 1,250 mcg PO SA 08/11/22 03/31/23 Mcg = 22646 Iu)] Losartan/Hydrochlorothiazide 1 tab PO DAILY 08/11/22 03/31/23 [Losartan-Hctz 100-12.5 mg Tab] Previous Rx's Medication Instructions Recorded Atorvastatin [Lipitor] 40 mg PO DAILY #30 tab 03/24/23 Ertapenem [INVanz] 0.5 gm IVPB DAILY@1400 10 Days #10 03/24/23 each Sodium Bicarbonate Tab 650 mg PO TID #90 tab 03/24/23 hydrALAZINE HCL [Apresoline] 50 mg PO BID #60 tab 03/24/23 Allergies Allergy/AdvReac Type Severity Reaction Status Date / Time ciprofloxacin [From Cipro] Allergy Severe Itching Verified 03/31/23 17:48 amoxicillin Allergy Unknown Verified 03/31/23 17:48 benztropine Allergy Unknown Verified 03/31/23 17:48 cefuroxime Allergy Itching Verified 03/31/23 17:48 clavulanic acid Allergy Unknown Verified 03/31/23 17:48 [From Augmentin] clindamycin Allergy Unknown Verified 03/31/23 17:48 metronidazole Allergy Unknown Verified 03/31/23 17:48 Review of Systems ROS Statement: Those systems with pertinent positive or pertinent negative responses have been documented in the HPI. ROS Other: All systems not noted in ROS Statement are negative. Past Medical History Past Medical History: Dementia, GERD/Reflux, Hyperlipidemia, Hypertension, Osteoarthritis (OA), Pneumonia, Thyroid Disorder, Vascular Disorder Additional Past Medical History / Comment(s): Chronic abdominal pain, IBS/colitis, gastritis, chronic low back and bilateral knee pain, recent L lower leg swelling at times, UTIs, bronchitis/recently approximately 2 weeks ago, past elevated LFTs, scarlet fever as a child. 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 Past Anesthesia/Blood Transfusion Reactions: No Reported Reaction Additional Past Anesthesia/Blood Transfusion Reaction / Comment(s): No blood transfusion to date Past Psychological History: Anxiety, Bipolar, Depression, Panic Disorder Smoking Status: Former smoker Past Alcohol Use History: None Reported Past Drug Use History: None Reported - Past Family History Father Family Medical History: Cancer Additional Family Medical History / Comment(s): Prostate and bone cancer Mother Family Medical History: Dementia General Exam Limitations: no limitations General appearance: alert, in no apparent distress Head exam: Present: atraumatic, normocephalic, normal inspection Eye exam: Present: normal appearance, PERRL, EOMI. Absent: scleral icterus, conjunctival injection, periorbital swelling Pupils: Present: normal accommodation Neck exam: Present: normal inspection, full ROM Respiratory exam: Present: normal lung sounds bilaterally. Absent: respiratory distress, wheezes, rales, rhonchi, stridor Cardiovascular Exam: Present: regular rate, normal rhythm, normal heart sounds. Absent: systolic murmur, diastolic murmur, rubs, gallop, clicks Extremities exam: Present: normal inspection, full ROM Neurological exam: Present: alert, oriented X3, CN II-XII intact Expanded Speech: Present: fluid speech Cranial nerves: EOM's Intact: Normal Cerebellar function: Finger to Nose: Normal Eye Response: (4) open spontaneously Motor Response: (6) obeys commands Verbal Response: (5) oriented Loretta Total: 15 Psychiatric exam: Present: normal affect, normal mood Skin exam: Present: warm, dry, intact, normal color. Absent: rash Course Vital Signs 03/31/23 03/31/23 15:18 20:24 Temperature 98.4 F 98.5 F Pulse Rate 64 64 Respiratory 18 18 Rate Blood Pressure 127/76 139/64 O2 Sat by Pulse 97 98 Oximetry EKG Findings - EKG Comments: EKG Findings:: Atrial fibrillation ventricular rate 62. ME interval indeterminable. QRS 78. QT 404. QTc 408. Normal axis. Medical Decision Making - Medical Decision Making Was pt. sent in by a medical professional or institution (, PA, MULTI CRAFT MAINTENANCE TECHNICIAN, urgent ca re, hospital, or long-term...) When possible be specific @ -No Did you speak to anyone other than the patient for history (EMS, parent, family, police, friend...)? What history was obtained from this source @ -No Did you review nursing and triage notes (agree or disagree)? Why? @ -I reviewed and agree with nursing and triage notes Were old charts reviewed (outside hosp., previous admission, EMS record, old EKG, old radiological studies, urgent care reports/EKG's, long-term records)? Report findings @ -No old charts were reviewed Differential Diagnosis (chest pain, altered mental status, abdominal pain women, abdominal pain men, vaginal bleeding, weakness, fever, dyspnea, syncope, headache, dizziness, GI bleed, back pain, seizure, CVA, palpatations, mental health, musculoskeletal)? @ -MDM Differential Weakness: Hypoglycemia, shock, sepsis, hyponatremia, anemia, infection, [place], ETOH, adverse medicine reaction, overdose, stroke. ... This is not meant to be an all- inclusive list EKG interpreted by me (3pts min.). @ -As above X-rays interpreted by me (1pt min.). @ -Chest x-ray showed no acute process CT interpreted by me (1pt min.). @ -No acute process seen on CT of the brain U/S interpreted by me (1pt. min.). @ -None done What testing was considered but not performed or refused? (CT, X-rays, U/S, labs)? Why? @ -None What meds were considered but not given or refused? Why? @ -None Did you discuss the management of the patient with other professionals (p rofessionals i.e. , PA, MULTI CRAFT MAINTENANCE TECHNICIAN, lab, RT, psych nurse, perinatal social worker, wort extractor, teacher, ship officer, employment evaluator/case manager)? Give summary @ -I spoke with Dr. Morgan who accepted admission of this patient Was smoking cessation discussed for >3mins.? @ -No Was critical care preformed (if so, how long)? @ -No Were there social determinants of health that impacted care today? How? (Homelessness, low income, unemployed, alcoholism, drug addiction, transportation, low edu. Level, literacy, decrease access to med. care, alf, rehab)? @ -No Was there de-escalation of care discussed even if they declined (Discuss DNR or withdrawal of care, Hospice)? DNR status @ -No What co-morbidities impacted this encounter? (DM, HTN, Smoking, COPD, CAD, Cancer, CVA, ARF, Chemo, Hep., AIDS, mental health diagnosis, sleep apnea, morb id obesity)? @ -None Was patient admitted / discharged? Hospital course, mention meds given and route, prescriptions, significant lab abnormalities, going to OR and other pertinent info. @ -77-year-old female presenting with chief complaint of progressive weakness and midline issues presenting for evaluation. The patient's daughter states that she has been unable to walk even short distances and has needed to be essentially carried throughout home. Patient is supposed to be receiving daily Invanz through her midline for UTI, this is supposed to be day 7 of treatment. Her home nurse states that the midline has been getting repeatedly blocked. Lab work shows no leukocytosis hemoglobin 10.8 consistent with baseline. Urine shows small leukocytes. Negative brain CT and chest x-ray. Patient will be admitted for progressive weakness. Will likely require subacute rehab placement. Follow-up with PCP. Report back to ER with any new or worsening symptoms. Discussed return parameters and answered all questions. Patient conveyed verbal understanding and agreed to the plan. I discussed this case in detail with my attending Dr. Perla Undiagnosed new problem with uncertain prognosis? @ -No Drug Therapy requiring intensive monitoring for toxicity (Heparin, Nitro, Insulin, Cardizem)? @ -No Were any procedures done? @ -No Diagnosis/symptom? @ -Generalized weakness Acute, or Chronic, or Acute on Chronic? @ -Acute Uncomplicated (without systemic symptoms) or Complicated (systemic symptoms)? @ -Complicated Side effects of treatment? @ -No Exacerbation, Progression, or Severe Exacerbation? @ -No Poses a threat to life or bodily function? How? (Chest pain, [place], [place], pneumonia, PE, COPD, DKA, ARF, appy, cholecystitis, CVA, Diverticulitis, Homicidal, Suicidal, threat to staff... and all critical care pts) @ -Potentially - Lab Data Result diagrams: 03/31/23 16:26 03/31/23 16:26 Lab Results 03/31/23 03/31/23 03/31/23 Range/Units 16:26 16:26 16:26 WBC 9.2 (3.8-10.6) k/uL RBC 3.27 L (3.80-5.40) m/uL Hgb 10.8 L (11.4-16.0) gm/dL Hct 32.5 L (34.0-46.0) % MCV 99.3 (80.0-100.0) fL MCH 32.9 (25.0-35.0) pg MCHC 33.1 (31.0-37.0) g/dL RDW 14.2 (11.5-15.5) % Plt Count 283 (150-450) k/uL MPV 7.6 Neutrophils % 66 % Lymphocytes % 22 % Monocytes % 8 % Eosinophils % 1 % Basophils % 0 % Neutrophils # 6.1 (1.3-7.7) k/uL Lymphocytes # 2.0 (1.0-4.8) k/uL Monocytes # 0.7 (0-1.0) k/uL Eosinophils # 0.1 (0-0.7) k/uL Basophils # 0.0 (0-0.2) k/uL PT 10.1 (9.0-12.0) sec INR 0.9 (<1.2) APTT 21.5 L (22.0-30.0) sec Sodium 132 L (137-145) mmol/L Potassium 3.9 (3.5-5.1) mmol/L Chloride 100 (98-107) mmol/L Carbon Dioxide 24 (22-30) mmol/L Anion Gap 8 mmol/L BUN 15 (7-17) mg/dL Creatinine 0.90 (0.52-1.04) mg/dL Est GFR (CKD-EPI)AfAm 71 (>60 ml/min/1.73 sqM) Est GFR (CKD-EPI)NonAf 61 (>60 ml/min/1.73 sqM) Glucose 82 (74-99) mg/dL Plasma Lactic Acid Mushtaq (0.7-2.0) mmol/L Calcium 8.8 (8.4-10.2) mg/dL Phosphorus 3.0 (2.5-4.5) mg/dL Magnesium 1.8 (1.6-2.3) mg/dL Total Bilirubin 1.0 (0.2-1.3) mg/dL AST 41 H (14-36) U/L ALT 23 (4-34) U/L Alkaline Phosphatase 101 (38-126) U/L Total Protein 5.8 L (6.3-8.2) g/dL Albumin 2.7 L (3.5-5.0) g/dL 03/31/23 Range/Units 16:26 WBC (3.8-10.6) k/uL RBC (3.80-5.40) m/uL Hgb (11.4-16.0) gm/dL Hct (34.0-46.0) % MCV (80.0-100.0) fL MCH (25.0-35.0) pg MCHC (31.0-37.0) g/dL RDW (11.5-15.5) % Plt Count (150-450) k/uL MPV Neutrophils % % Lymphocytes % % Monocytes % % Eosinophils % % Basophils % % Neutrophils # (1.3-7.7) k/uL Lymphocytes # (1.0-4.8) k/uL Monocytes # (0-1.0) k/uL Eosinophils # (0-0.7) k/uL Basophils # (0-0.2) k/uL PT (9.0-12.0) sec INR (<1.2) APTT (22.0-30.0) sec Sodium (137-145) mmol/L Potassium (3.5-5.1) mmol/L Chloride (98-107) mmol/L Carbon Dioxide (22-30) mmol/L Anion Gap mmol/L BUN (7-17) mg/dL Creatinine (0.52-1.04) mg/dL Est GFR (CKD-EPI)AfAm (>60 ml/min/1.73 sqM) Est GFR (CKD-EPI)NonAf (>60 ml/min/1.73 sqM) Glucose (74-99) mg/dL Plasma Lactic Acid Mushtaq 1.0 (0.7-2.0) mmol/L Calcium (8.4-10.2) mg/dL Phosphorus (2.5-4.5) mg/dL Magnesium (1.6-2.3) mg/dL Total Bilirubin (0.2-1.3) mg/dL AST (14-36) U/L ALT (4-34) U/L Alkaline Phosphatase (38-126) U/L Total Protein (6.3-8.2) g/dL Albumin (3.5-5.0) g/dL Disposition Clinical Impression: Generalized weakness Disposition: ADMITTED IP TO THIS HOSP Condition: Fair Time of Disposition: 18:46
--- NOTE | 2023-03-31 16:58 | CT ---
EXAMINATION TYPE: CT brain wo con DATE OF EXAM: 03/31/2023 COMPARISON: 03/20/23 HISTORY: weakness CT DLP: 1087.[address] of the brain was performed. The ventricles, basal cisterns and sulci overlying the cerebral convexities demonstrate mild enlargem ent. There is no evidence for intracranial hemorrhage or sulcal effacement. There is decreased attenuation about the periventricular white matter and deep white matter of both c erebral hemispheres, compatible with chronic small vessel ischemia. Differential diagnosis does inclu de demyelination. No mass effects are seen.No midline shift. Osseous calvarium is intact. If symptoms persist consider MRI. IMPRESSION: 1. Age related atrophic and chronic small vessel ischemic change without acute intracranial process s een at this time.
--- NOTE | 2023-03-31 16:59 | XR ---
EXAMINATION TYPE: XR chest 2V DATE OF EXAM: 03/31/2023 COMPARISON: 03/22/2023 HISTORY: Shortness of breath TECHNIQUE: Frontal and lateral views of the chest are obtained. FINDINGS: Scattered senescent parenchymal changes noted. Hyperinflation compatible with COPD. No evidence for infiltrate. No evidence for atelectasis. Heart size is stable. Pulmonary venous congestion without overt failure at this time. Mediastinal structures are stable and grossly unremarkable. No evidence for hilar prominence. Degenerative changes dorsal spine. IMPRESSION: 1. Pulmonary venous congestion without overt failure at this time.
[2023-03-31] MEDS ORDERED: ALTEPLASE 2 MG VIAL (CATHFLO) IV STA (17:03)
[2023-03-31 17:08] LABS: ALT 23 U/L (4-34); AST 41 U/L (14-36); African American GFR (CKD) 71 (>60 ml/min/1.73 sqM); Albumin 2.7 g/dL (3.5-5.0); Alkaline Phosphatase 101 U/L (38-126); Anion Gap 8 mmol/L; Blood Urea Nitrogen 15 mg/dL (7-17); Calcium 8.8 mg/dL (8.4-10.2); Carbon Dioxide 24 mmol/L (22-30); Chloride 100 mmol/L (98-107); Glucose 82 mg/dL (74-99); Magnesium 1.8 mg/dL (1.6-2.3); Non-African American GFR(CKD) 61 (>60 ml/min/1.73 sqM); Sodium 132 mmol/L (137-145); Total Protein 5.8 g/dL (6.3-8.2)
[2023-03-31 17:11] LABS: INR 0.9 (<1.2); Partial Thromboplastin Time 21.5 sec (22.0-30.0); Prothrombin Time 10.1 sec (9.0-12.0)
[2023-03-31 17:22] LABS: Potassium 3.9 mmol/L (3.5-5.1)
[2023-03-31 17:38] LABS: RBC,Urine 2 /hpf (0-5); Squamous Epithelial Cell,Urine 2 /hpf (0-4); WBC,Urine 5 /hpf (0-5)
[2023-03-31] MEDS ORDERED: oxyCODONE-APAP 5-325MG 1 EACH TAB PO PRN (18:43)
[2023-03-31] MEDS ORDERED: ACETAMINOPHEN TAB 325 MG TAB PO PRN (18:43)
[2023-03-31] MEDS ORDERED: NALOXONE 0.4 MG/ML 1 ML VIAL IV PRN (18:43)
[2023-03-31] MEDS: SODIUM CHLORIDE 0.9% 1,000 ML IV SCH (19:25)
[2023-03-31] MEDS: ERTAPENEM 1 GM in SODIUM CHLORIDE 0.9% 50 ML IVPB SCH (22:01)
[2023-04-01] MEDS ORDERED: IPRATROPIUM 0.5 MG/2.5 ML NEBU INHALATION PRN (10:04)
[2023-04-01] MEDS ORDERED: HYDROcodone/APAP 7.5-325MG 1 EACH TAB PO PRN (10:07)
[2023-04-01] MEDS: SODIUM CHLORIDE 0.9% 1,000 ML IV SCH (10:58)
[2023-04-01] MEDS: LOSARTAN 50 MG TAB PO SCH (10:59)
[2023-04-01] MEDS: MAGNESIUM OXIDE 400 MG TAB PO SCH (10:59)
[2023-04-01] MEDS: SODIUM BICARBONATE TAB 650 MG TAB PO SCH ×3 (10:59→21:27)
[2023-04-01] MEDS: hydrOXYzine pamoate 25 MG CAP PO SCH ×2 (10:59→21:15)
[2023-04-01] MEDS: FLUoxetine HCL 20 MG CAP PO SCH (10:59)
[2023-04-01] MEDS: PROPRANOLOL 20 MG TAB PO SCH ×2 (10:59→21:16)
[2023-04-01] MEDS: hydrALAZINE HCL 50 MG TAB PO SCH ×2 (10:59→21:16)
[2023-04-01] MEDS: busPIRone HCl 10 MG TAB PO SCH ×2 (10:59→21:15)
[2023-04-01] MEDS: ATORVASTATIN 40 MG TAB PO SCH (10:59)
[2023-04-01] MEDS ORDERED: ERTAPENEM 1 GM VIAL IVPB SCH (14:00)
--- NOTE | 2023-04-01 16:47 | P.HPIM ---
History of Present Illness H&P Date: 04/01/23 This is a 77 year old female with medical history of GERD, dementia, hypertension, hyperlipidemia, IBS, anxiety/depression, bipolar/panic disorder and chronic nicotine use. Patient was recently admitted to the hospital with UTI and bacteremia with E. Coli was discharged on IV invanz through midline for 10 days. Patient has had issues with midline clotting off at home and has been to the ER for this. Presents now with increased weakness and inability to ambulate since being discharged. No fever or chills, no dysuria urgency or frequency reported. No shortness of breath or chest pain. Patient had a repeat urinalysis done which is essentially negative. No white count. patient will be evaluated by Infectious disease and physical therapy likely will need subacute rehab on discharge. REVIEW OF SYSTEMS: CONSTITUTIONAL: No fever, no malaise, no fatigue. HEENT: No recent visual problems or hearing problems. Denied any sore throat. CARDIOVASCULAR: No chest pain, orthopnea, PND, no palpitations, no syncope. PULMONARY: No shortness of breath, no cough, no hemoptysis. GASTROINTESTINAL: No diarrhea, no nausea, no vomiting, no abdominal pain. NEUROLOGICAL: No headaches, no weakness, no numbness. HEMATOLOGICAL: Denies any bleeding or petechiae. GENITOURINARY: Denies any burning micturition, frequency, or urgency. MUSCULOSKELETAL/RHEUMATOLOGICAL: Denies any joint pain, swelling, or any muscle pain. ENDOCRINE: Denies any polyuria or polydipsia. The rest of the 14-point review of systems is negative. PHYSICAL EXAMINATION: GENERAL: The patient is alert and oriented x3, not in any acute distress. Well developed, well nourished. HEENT: Pupils are round and equally reacting to light. EOMI. No scleral icterus. No conjunctival pallor. Normocephalic, atraumatic. No pharyngeal erythema. No thyromegaly. CARDIOVASCULAR: S1 and S2 present. No murmurs, rubs, or gallops. PULMONARY: Chest is clear to auscultation, no wheezing or crackles. ABDOMEN: Soft, nontender, nondistended, normoactive bowel sounds. No palpable organomegaly. MUSCULOSKELETAL: No joint swelling or deformity. EXTREMITIES: No cyanosis, clubbing, or pedal edema. NEUROLOGICAL: Gross neurological examination did not reveal any focal deficits. SKIN: No rashes. Assessment and Plan -Generalized weakness and fatigue likely due to medical deconditioning patient will be evaluated by PT and likely will need subacute rehab on discharge -Hyponatremia patient was hydrated repeat sodium level in the AM -Recent hospitalization for UTI/Bacteremia with E.Coli currently on IV invanz outpatient repeat UA negative and midline malfunctioning, ID on consultation for further recommendations -IBS resumed on imodium -GERD -Hx dementia -Hx of IBS -Anxiety/Depression/Panic disorder continues on home medications -Chronic nicotine use counseled on smoking cessation GI prophylaxis DVT prophylaxis Full Code The impression and plan of care has been dictated by Hortensia Costa Nurse Practitioner as directed. Dr. Shelia MD I have performed a history and physical examination and medical decision making of this patient, discussed the same with the dictator, and agree with the dictators assessment and plan as written, documented as a scribe. Based on total visit time, I have performed more than 50% of this visit. Past Medical History Past Medical History: Dementia, GERD/Reflux, Hyperlipidemia, Hypertension, Osteoarthritis (OA), Pneumonia, Thyroid Disorder, Vascular Disorder Additional Past Medical History / Comment(s): Chronic abdominal pain, IBS/colitis, gastritis, chronic low back and bilateral knee pain, recent L lower leg swelling at times, UTIs, bronchitis/recently approximately 2 weeks ago, past elevated LFTs, scarlet fever as a child. 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 Past Anesthesia/Blood Transfusion Reactions: No Reported Reaction Additional Past Anesthesia/Blood Transfusion Reaction / Comment(s): No blood transfusion to date Past Psychological History: Anxiety, Bipolar, Depression, Panic Disorder Smoking Status: Former smoker Past Alcohol Use History: None Reported Past Drug Use History: None Reported - Past Family History Father Family Medical History: Cancer Additional Family Medical History / Comment(s): Prostate and bone cancer Mother Family Medical History: Dementia Medications and Allergies Home Medications Medication Instructions Recorded Confirmed Type busPIRone HCL 10 mg PO BID 11/09/19 03/31/23 History Aspirin EC [Ecotrin Low Dose] 81 mg PO HS 08/23/21 03/31/23 History FLUoxetine HCL 40 mg PO DAILY 08/23/21 03/31/23 History Furosemide [Lasix] 20 mg PO DAILY PRN 08/23/21 03/31/23 History HYDROcodone/APAP 7.5-325MG [[place] 1 tab PO TID 08/23/21 03/31/23 History 7.5-325] Lactulose [Constulose] 10 gm PO DAILY PRN 08/23/21 03/31/23 History Loperamide HCl [Imodium A-D] 2 mg PO DAILY 08/23/21 03/31/23 History Melatonin 5 mg PO HS 08/23/21 03/31/23 History Multivit with Calcium,Iron,Min 1 tab PO DAILY 08/23/21 03/31/23 History [Women's Multivitamin] OLANZapine [ZyPREXA] 10 mg PO HS 08/23/21 03/31/23 History Propranolol [Inderal] 20 mg PO BID 08/23/21 03/31/23 History QUEtiapine [SEROquel] 75 mg PO HS 08/23/21 03/31/23 History Tiotropium 2.5 Mcg/Puff [Spiriva 2 puff INHALATION RT-DAILY PRN 08/23/21 03/31/23 History Respimat 2.5 Mcg] hydrOXYzine pamoate [Vistaril] 25 mg PO BID 08/23/21 03/31/23 History Ergocalciferol [Vitamin D2 (1250 1,250 mcg PO SA 08/11/22 03/31/23 History Mcg = 31406 Iu)] Losartan/Hydrochlorothiazide 1 tab PO DAILY 08/11/22 03/31/23 History [Losartan-Hctz 100-12.5 mg Tab] Atorvastatin [Lipitor] 40 mg PO DAILY #30 tab 03/24/23 03/31/23 Rx Ertapenem [INVanz] 0.5 gm IVPB DAILY@1400 10 Days #10 03/24/23 03/31/23 Rx each Sodium Bicarbonate Tab 650 mg PO TID #90 tab 03/24/23 03/31/23 Rx hydrALAZINE HCL [Apresoline] 50 mg PO BID #60 tab 03/24/23 03/31/23 Rx Allergies Allergy/AdvReac Type Severity Reaction Status Date / Time ciprofloxacin [From Cipro] Allergy Severe Itching Verified 03/31/23 17:48 amoxicillin Allergy Unknown Verified 03/31/23 17:48 benztropine Allergy Unknown Verified 03/31/23 17:48 cefuroxime Allergy Itching Verified 03/31/23 17:48 clavulanic acid Allergy Unknown Verified 03/31/23 17:48 [From Augmentin] clindamycin Allergy Unknown Verified 03/31/23 17:48 metronidazole Allergy Unknown Verified 03/31/23 17:48 Physical Exam Vitals: Vital Signs Temp Pulse Pulse Resp BP BP Pulse Ox 04/01/23 07:28 97.8 F 68 18 191/65 96 04/01/23 02:42 70 153/68 04/01/23 01:35 97.7 F 71 18 175/76 96 03/31/23 21:55 97.6 F 66 17 134/60 98 03/31/23 20:24 98.5 F 64 18 139/64 98 03/31/23 15:18 98.4 F 64 18 127/76 97 Intake and Output 03/31/23 04/01/23 04/01/23 22:59 06:59 14:59 Intake Total 770 Output Total 500 Balance 270 Intake: Intake, IV Titration 770 Amount Ertapenem 1 gm In Sodium 50 Chloride 0.9% 50 ml @ 100 mls/hr IVPB HS [facility] Rx#: [id number] Sodium Chloride 0.9% 1, 720 000 ml @ 75 mls/hr IV . [id number] [facility] Rx#:[id number] Output: Urine 500 Other: Voiding Method External Catheter Weight 66.678 kg Results CBC & Chem 7: 03/31/23 16:26 03/31/23 16:26 Labs: Abnormal Lab Results - Last 24 Hours (Table) 03/31/23 03/31/23 03/31/23 Range/Units 16:26 16:26 16:26 RBC 3.27 L (3.80-5.40) m/uL Hgb 10.8 L (11.4-16.0) gm/dL Hct 32.5 L (34.0-46.0) % APTT 21.5 L (22.0-30.0) sec Sodium 132 L (137-145) mmol/L AST 41 H (14-36) U/L Total Protein 5.8 L (6.3-8.2) g/dL Albumin 2.7 L (3.5-5.0) g/dL Ur Leukocyte Esterase (Negative) 03/31/23 Range/Units Unknown RBC (3.80-5.40) m/uL Hgb (11.4-16.0) gm/dL Hct (34.0-46.0) % APTT (22.0-30.0) sec Sodium (137-145) mmol/L AST (14-36) U/L Total Protein (6.3-8.2) g/dL Albumin (3.5-5.0) g/dL Ur Leukocyte Esterase Small H (Negative) Thrombosis Risk Factor Assmnt - Choose All That Apply Each Factor Represents 1 point: Obesity (BMI >25) Each Risk Factor Represents 3 Points: Age 75 years or older Thrombosis Risk Factor Assessment Total Risk Factor Score: 4 Thrombosis Risk Factor Assessment Level: Moderate Risk Assessment and Plan Time with Patient: Less than 30
[2023-04-01] MEDS: LOPERAMIDE 2 MG CAP PO SCH (17:26)
[2023-04-01] MEDS: ASPIRIN 81 MG PO SCH (21:15)
[2023-04-01] MEDS: QUEtiapine 25 MG TAB PO SCH (21:16)
[2023-04-01] MEDS: MELATONIN 5 MG TABLET PO SCH (21:16)
[2023-04-01] MEDS: OLANZapine 10 MG TAB PO SCH (21:16)
[2023-04-01] MEDS: ERTAPENEM 1 GM in SODIUM CHLORIDE 0.9% 50 ML IVPB SCH (21:17)
[2023-04-01] MEDS: HEPARIN SODIUM,PORCINE/PF 5,000 UNIT/0.5 ML SYRINGE SQ SCH (21:17)
--- NOTE | 2023-04-01 22:29 | P.CONS ---
History of Present Illness - Reason for Consult Consult date: 04/01/23 Continued UTI treatment Requesting physician: Rigo Bowen - Chief Complaint Weakness and nonfunctioning midline x 1 day - History of Present Illness Patient is a 77-year-old female with multiple comorbidities recently admitted at this hospital with E. coli UTI and bacteremia patient did have multiple patient with multiple antibiotic allergies patient did got midline and was advised 10 day course of IV Invanz apparently the patient did have issues with a midline clotting of at home and the patient was subsequently sent to the ER for further evaluation patient also complaining of increasing weakness and inability to ambulate since being discharged from the hospital patient denies having any headache and no URI symptoms no chest pain no shortness of breath or cough no abdominal pain no diarrhea on arrival to the ER the patient was afebrile and no fever has been going subsequently patient did have a normal white count kidney function was normal urine is negative patient did have a CT of the brain that was negative for any bleed chest x-ray pulmonary vascular congestion without overt failure at this point patient was admitted to the hospital she has been continued on Invanz infectious he was consulted for further management of antibiotic therapy Review of Systems Positive point and negatives has been mentioned in the HPI, complete review of systems was performed and all other systems are negative Past Medical History Past Medical History: Dementia, GERD/Reflux, Hyperlipidemia, Hypertension, Osteoarthritis (OA), Pneumonia, Thyroid Disorder, Vascular Disorder Additional Past Medical History / Comment(s): Chronic abdominal pain, IBS/colitis, gastritis, chronic low back and bilateral knee pain, recent L lower leg swelling at times, UTIs, bronchitis/recently approximately 2 weeks ago, past elevated LFTs, scarlet fever as a child. 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 Past Anesthesia/Blood Transfusion Reactions: No Reported Reaction Additional Past Anesthesia/Blood Transfusion Reaction / Comm: No blood transfusion to date Past Psychological History: Anxiety, Bipolar, Depression, Panic Disorder Smoking Status: Former smoker Past Alcohol Use History: None Reported Past Drug Use History: None Reported - Past Family History Father Family Medical History: Cancer Additional Family Medical History / Comment(s): Prostate and bone cancer Mother Family Medical History: Dementia Medications and Allergies Home Medications Medication Instructions Recorded Confirmed Type busPIRone HCL 10 mg PO BID 11/09/19 03/31/23 History Aspirin EC [Ecotrin Low Dose] 81 mg PO HS 08/23/21 03/31/23 History FLUoxetine HCL 40 mg PO DAILY 08/23/21 03/31/23 History Furosemide [Lasix] 20 mg PO DAILY PRN 08/23/21 03/31/23 History HYDROcodone/APAP 7.5-325MG [[place] 1 tab PO TID 08/23/21 03/31/23 History 7.5-325] Lactulose [Constulose] 10 gm PO DAILY PRN 08/23/21 03/31/23 History Loperamide HCl [Imodium A-D] 2 mg PO DAILY 08/23/21 03/31/23 History Melatonin 5 mg PO HS 08/23/21 03/31/23 History Multivit with Calcium,Iron,Min 1 tab PO DAILY 08/23/21 03/31/23 History [Women's Multivitamin] OLANZapine [ZyPREXA] 10 mg PO HS 08/23/21 03/31/23 History Propranolol [Inderal] 20 mg PO BID 08/23/21 03/31/23 History QUEtiapine [SEROquel] 75 mg PO HS 08/23/21 03/31/23 History Tiotropium 2.5 Mcg/Puff [Spiriva 2 puff INHALATION RT-DAILY PRN 08/23/21 03/31/23 History Respimat 2.5 Mcg] hydrOXYzine pamoate [Vistaril] 25 mg PO BID 08/23/21 03/31/23 History Ergocalciferol [Vitamin D2 (1250 1,250 mcg PO SA 08/11/22 03/31/23 History Mcg = 76285 Iu)] Atorvastatin [Lipitor] 40 mg PO DAILY #30 tab 03/24/23 03/31/23 Rx Ertapenem [INVanz] 0.5 gm IVPB DAILY@1400 10 Days #10 03/24/23 03/31/23 Rx each Sodium Bicarbonate Tab 650 mg PO TID #90 tab 03/24/23 03/31/23 Rx hydrALAZINE HCL [Apresoline] 50 mg PO BID #60 tab 03/24/23 03/31/23 Rx Folic Acid 1 mg PO DAILY #30 tab 04/03/23 Rx Losartan [Cozaar] 50 mg PO DAILY #30 tab 04/03/23 Rx Magnesium Oxide [Mag-Ox] 400 mg PO DAILY #15 tab 04/03/23 Rx Allergies Allergy/AdvReac Type Severity Reaction Status Date / Time ciprofloxacin [From Cipro] Allergy Severe Itching Verified 03/31/23 17:48 amoxicillin Allergy Unknown Verified 03/31/23 17:48 benztropine Allergy Unknown Verified 03/31/23 17:48 cefuroxime Allergy Itching Verified 03/31/23 17:48 clavulanic acid Allergy Unknown Verified 03/31/23 17:48 [From Augmentin] clindamycin Allergy Unknown Verified 03/31/23 17:48 metronidazole Allergy Unknown Verified 03/31/23 17:48 Physical Exam Vitals: Vital Signs Temp Pulse Pulse Resp BP BP Pulse Ox 04/01/23 07:28 97.8 F 68 18 191/65 96 04/01/23 02:42 70 153/68 04/01/23 01:35 97.7 F 71 18 175/76 96 03/31/23 21:55 97.6 F 66 17 134/60 98 03/31/23 20:24 98.5 F 64 18 139/64 98 03/31/23 15:18 98.4 F 64 18 127/76 97 Intake and Output 03/31/23 04/01/23 04/01/23 22:59 06:59 14:59 Intake Total 770 Output Total 500 Balance 270 Intake: Intake, IV Titration 770 Amount Ertapenem 1 gm In Sodium 50 Chloride 0.9% 50 ml @ 100 mls/hr IVPB [facility] Rx#: [id number] Sodium Chloride 0.9% 1, 720 000 ml @ 75 mls/hr IV . [id number] [facility] Rx#:[id number] Output: Urine 500 Other: Voiding Method External Catheter Weight 66.678 kg GENERAL DESCRIPTION: Elderly female lying in bed, no distress. No tachypnea or accessory muscle of respiration use. HEENT: Shows Pallor , no scleral icterus. Oral mucous membrane is dry. No pharyngeal erythema or thrush NECK: Trachea central, no thyromegaly. LUNGS: Unlabored breathing. Clear to auscultation anteriorly. No wheeze or crackle. HEART: S1, S2, regular rate and rhythm. No loud murmur ABDOMEN: Soft, no tenderness , guarding or rigidity, no organomegaly EXTREMITIES: No edema of feet. SKIN: No rash, no masses palpable. NEUROLOGICAL: The patient is awake, alert, oriented x3, mood and affect normal. Results CBC & Chem 7: 04/02/23 03:05 04/03/23 06:13 Labs: Abnormal Lab Results - Last 24 Hours (Table) 03/31/23 03/31/23 03/31/23 Range/Units 16:26 16:26 16:26 RBC 3.27 L (3.80-5.40) m/uL Hgb 10.8 L (11.4-16.0) gm/dL Hct 32.5 L (34.0-46.0) % APTT 21.5 L (22.0-30.0) sec Sodium 132 L (137-145) mmol/L AST 41 H (14-36) U/L Total Protein 5.8 L (6.3-8.2) g/dL Albumin 2.7 L (3.5-5.0) g/dL Ur Leukocyte Esterase (Negative) 03/31/23 Range/Units Unknown RBC (3.80-5.40) m/uL Hgb (11.4-16.0) gm/dL Hct (34.0-46.0) % APTT (22.0-30.0) sec Sodium (137-145) mmol/L AST (14-36) U/L Total Protein (6.3-8.2) g/dL Albumin (3.5-5.0) g/dL Ur Leukocyte Esterase Small H (Negative) Assessment and Plan (1) Allergy to multiple antibiotics Current Visit: Yes Status: Acute Code(s): Z88.1 - ALLERGY STATUS TO OTHER ANTIBIOTIC AGENTS SNOMED Code(s): 663511437 (2) Gram-negative bacteremia Current Visit: Yes Status: Acute Code(s): R78.81 - BACTEREMIA SNOMED Code(s): 498530234174 (3) Urinary tract infection Current Visit: No Status: Acute Code(s): N39.0 - URINARY TRACT INFECTION, SITE NOT SPECIFIED SNOMED Code(s): 42678653 Plan: 1patient with a recent admission to the hospital with E. coli UTI and bacteremia in this patient who did have multiple antibiotic allergies requiring midline placement and IV Invanz patient did have an ultrasound that was negative for any structural abnormality not present to the hospital problem with the midline 2-patient to continue Invanz 1 g daily she will be finishing her therapy as of 04/06/2023 that should be 2 weeks from her positive blood culture 3-we will recheck a blood culture and inflammatory markers We will follow on clinical condition and cultures to further adjust medication if needed Thank you for this consultation we will follow the patient along with you Dictation was produced using [employer] dictation software. please excuse any grammatical, word or spelling errors. Time with Patient: Greater than 30
[2023-04-02 04:42] LABS: ALT 16 U/L (4-34); AST 22 U/L (14-36); African American GFR (CKD) 69 (>60 ml/min/1.73 sqM); Albumin 2.2 g/dL (3.5-5.0); Albumin/Globulin Ratio 0.9; Alkaline Phosphatase 92 U/L (38-126); Anion Gap 5 mmol/L; Blood Urea Nitrogen 13 mg/dL (7-17); C Reactive Protein 3.8 mg/dL (<1.0); Calcium 8.1 mg/dL (8.4-10.2); Carbon Dioxide 23 mmol/L (22-30); Chloride 105 mmol/L (98-107); Globulin 2.5 g/dL; Glucose 79 mg/dL (74-99); Magnesium 1.8 mg/dL (1.6-2.3); Non-African American GFR(CKD) 60 (>60 ml/min/1.73 sqM); Potassium 3.3 mmol/L (3.5-5.1); Sodium 133 mmol/L (137-145); Total Bilirubin 0.4 mg/dL (0.2-1.3); Total Protein 4.7 g/dL (6.3-8.2)
[2023-04-02 04:58] LABS: Basophils % (A) 0 %; Eosinophils # (A) 0.1 k/uL (0-0.7); Eosinophils % (A) 1 %; HCT 29.2 % (34.0-46.0); HGB 9.4 gm/dL (11.4-16.0); Lymphocytes # (A) 2.4 k/uL (1.0-4.8); Lymphocytes % (A) 32 %; MCH 32.9 pg (25.0-35.0); MCHC 32.3 g/dL (31.0-37.0); MCV 101.9 fL (80.0-100.0); Macrocytosis Slight; Monocytes # (A) 0.6 k/uL (0-1.0); Monocytes % (A) 8 %; Neutrophils # (A) 4.2 k/uL (1.3-7.7); Neutrophils % (A) 56 %; Platelet Count 253 k/uL (150-450); RBC 2.87 m/uL (3.80-5.40); RDW 14.2 % (11.5-15.5); WBC 7.5 k/uL (3.8-10.6)
[2023-04-02] MEDS: FLUoxetine HCL 20 MG CAP PO SCH (09:59)
[2023-04-02] MEDS: ATORVASTATIN 40 MG TAB PO SCH (09:59)
[2023-04-02] MEDS: HEPARIN SODIUM,PORCINE/PF 5,000 UNIT/0.5 ML SYRINGE SQ SCH ×2 (09:59→20:28)
[2023-04-02] MEDS: busPIRone HCl 10 MG TAB PO SCH ×2 (09:59→20:27)
[2023-04-02] MEDS: hydrALAZINE HCL 50 MG TAB PO SCH ×2 (10:00→20:28)
[2023-04-02] MEDS: hydrOXYzine pamoate 25 MG CAP PO SCH ×2 (10:00→20:27)
[2023-04-02] MEDS: LOSARTAN 50 MG TAB PO SCH (10:06)
[2023-04-02] MEDS: LOPERAMIDE 2 MG CAP PO SCH (10:06)
[2023-04-02] MEDS: MAGNESIUM OXIDE 400 MG TAB PO SCH (10:07)
[2023-04-02] MEDS: PROPRANOLOL 20 MG TAB PO SCH ×2 (10:07→20:27)
[2023-04-02] MEDS: MULTIVITAMINS, THERA 1 EACH TAB PO SCH (10:07)
[2023-04-02] MEDS: SODIUM BICARBONATE TAB 650 MG TAB PO SCH ×3 (10:07→20:27)
[2023-04-02] MEDS ORDERED: POTASSIUM CHLORIDE ER 20 MEQ TAB.ER PO STA (10:26)
--- NOTE | 2023-04-02 15:38 | P.PN ---
Subjective Progress Note Date: 04/02/23 This is a 77 year old female with medical history of GERD, dementia, hypertension, hyperlipidemia, IBS, anxiety/depression, bipolar/panic disorder and chronic nicotine use. Patient was recently admitted to the hospital with UTI and bacteremia with E. Coli was discharged on IV invanz through midline for 10 days. Patient has had issues with midline clotting off at home and has been to the ER for this. Presents now with increased weakness and inability to ambulate since being discharged. No fever or chills, no dysuria urgency or frequency reported. No shortness of breath or chest pain. Patient had a repeat urinalysis done which is essentially negative. No white count. patient will be evaluated by Infectious disease and physical therapy likely will need subacute rehab on discharge. 04/02/2023 Patient is evaluated today resting in bed. Continues to report lower extremity weakness and has been evaluated by physical therapy. Patient was recommended to discharge to subacute rehab however patient is refusing and will return home with homecare. Has not been changed to has been discontinued and midline order has been placed. Discharge has been held until tomorrow for this. Infectious disease has evaluated the patient and recommending to complete full course of antibiotic therapy with IV Invanz through April 06. Labs today show a sodium level from 33, potassium 3.3 patient was supplemented. Review of Systems Constitutional: Denied any fatigue denied any fever. Cardio vascular: denied any chest pain, palpitations Gastrointestinal: denied any nausea, vomiting, diarrhea Pulmonary: Denied any shortness of breath cough Neurologic denied any new focal deficits Reports lower extremity weakness. All inpatient medications were reviewed and appropriate changes in these medications as dictated in the interval history and assessment and plan. PHYSICAL EXAMINATION: GENERAL: The patient is alert and oriented x3, not in any acute distress. Well developed, well nourished. HEENT: Pupils are round and equally reacting to light. EOMI. No scleral icterus. No conjunctival pallor. Normocephalic, atraumatic. No pharyngeal erythema. No thyromegaly. CARDIOVASCULAR: S1 and S2 present. No murmurs, rubs, or gallops. PULMONARY: Chest is clear to auscultation, no wheezing or crackles. ABDOMEN: Soft, nontender, nondistended, normoactive bowel sounds. No palpable organomegaly. MUSCULOSKELETAL: No joint swelling or deformity. EXTREMITIES: No cyanosis, clubbing, or pedal edema. NEUROLOGICAL: Gross neurological examination did not reveal any focal deficits. SKIN: No rashes. Assessment and Plan -Generalized weakness and fatigue likely due to medical deconditioning patient will be evaluated by PT patient is refusing DC to rehab and will dc home with homecare when ready. -Hyponatremia patient was hydrated repeat sodium level in the AM -Recent hospitalization for UTI/Bacteremia with E.Coli currently on IV invanz outpatient patient to finish course of antibiotic therapy complete on 04/06/23 patient requires new midline which will be placed tomorrow. -IBS resumed on imodium -GERD -Hx dementia -Hx of IBS -Anxiety/Depression/Panic disorder continues on home medications -Chronic nicotine use counseled on smoking cessation GI prophylaxis DVT prophylaxis Full Code The impression and plan of care has been dictated by Nurse Amalia Galarza as directed. Dr. Shelia MD I have performed a history and physical examination and medical decision making of this patient, discussed the same with the dictator, and agree with the dict ators assessment and plan as written, documented as a scribe. Based on total visit time, I have performed more than 50% of this visit. Objective - Vital Signs Vital signs: Vital Signs Temp 97.8 F 04/02/23 13:58 Pulse 64 04/02/23 13:58 Resp 15 04/02/23 13:58 BP 138/76 04/02/23 13:58 Pulse Ox 96 04/02/23 13:58 FiO2 Intake & Output 04/01/23 04/02/23 04/02/23 18:59 06:59 18:59 Intake Total 290 Output Total 500 1000 950 Balance -500 -710 -950 Intake: Intake, IV Titration 290 Amount Ertapenem 1 gm In Sodium 50 Chloride 0.9% 50 ml @ 100 mls/hr IVPB HS [facility] Rx#: [id number] Sodium Chloride 0.9% 1, 240 000 ml @ 75 mls/hr IV . [id number] [facility] Rx#:[id number] Output: Urine 500 1000 950 Other: Voiding Method External Catheter External Catheter External Catheter - Labs CBC & Chem 7: 04/02/23 03:05 04/02/23 03:05 Labs: Abnormal Lab Results - Last 24 Hours (Table) 04/02/23 04/02/23 Range/Units 03:05 03:05 RBC 2.87 L (3.80-5.40) m/uL Hgb 9.4 L (11.4-16.0) gm/dL Hct 29.2 L (34.0-46.0) % MCV 101.9 H (80.0-100.0) fL Sodium 133 L (137-145) mmol/L Potassium 3.3 L (3.5-5.1) mmol/L Calcium 8.1 L (8.4-10.2) mg/dL C-Reactive Protein 3.8 H (<1.0) mg/dL Total Protein 4.7 L (6.3-8.2) g/dL Albumin 2.2 L (3.5-5.0) g/dL Assessment and Plan Time with Patient: Less than 30
[2023-04-02] MEDS ORDERED: SODIUM CHLORIDE 0.9% 1,000 ML IV SCH (15:45)
[2023-04-02] MEDS: ASPIRIN 81 MG PO SCH (20:27)
[2023-04-02] MEDS: QUEtiapine 25 MG TAB PO SCH (20:27)
[2023-04-02] MEDS: OLANZapine 10 MG TAB PO SCH (20:27)
[2023-04-02] MEDS: ERTAPENEM 1 GM in SODIUM CHLORIDE 0.9% 50 ML IVPB SCH (20:27)
[2023-04-02] MEDS: MELATONIN 5 MG TABLET PO SCH (20:27)
--- NOTE | 2023-04-02 21:51 | P.PN ---
Subjective Progress Note Date: 04/02/23 Principal diagnosis: E coli UTI and bacteremia Patient is a 77-year-old female with multiple comorbidities recently admitted at this hospital with E. coli UTI and bacteremia patient did have multiple patient with multiple antibiotic allergies patient did got midline and was advised 10 day course of IV Invanz apparently the patient did have issues with a midline clotting of at home, For which the patient has been brought to the hospital. On today's evaluation that is 04/02/2023, the patient denies having any fever origin patient had been complaining of feeling weak and tired and no energy patient denies any headache or chest pain shortness of breath or cough no abdominal pain and no diarrhea Objective - Vital Signs Vital signs: Vital Signs Temp 97.9 F 04/02/23 07:46 Pulse 60 04/02/23 09:48 Resp 14 04/02/23 07:46 BP 130/74 04/02/23 09:48 Pulse Ox 96 04/02/23 07:46 FiO2 Intake & Output 04/01/23 04/02/23 04/02/23 18:59 06:59 18:59 Intake Total 290 Output Total 500 1000 Balance -500 -710 Intake: Intake, IV Titration 290 Amount Ertapenem 1 gm In Sodium 50 Chloride 0.9% 50 ml @ 100 mls/hr IVPB HS [facility] Rx#: [id number] Sodium Chloride 0.9% 1, 240 000 ml @ 75 mls/hr IV . [id number] [facility] Rx#:[id number] Output: Urine 500 1000 Other: Voiding Method External Catheter External Catheter External Catheter - Exam GENERAL DESCRIPTION: An elderly female lying in bed in no distress RESPIRATORY SYSTEM: Unlabored breathing , decreased breath sounds at bases HEART: S1 S2 regular rate and rhythm , ABDOMEN: Soft , no tenderness EXTREMITIES: No edema feet - Labs CBC & Chem 7: 04/02/23 03:05 04/02/23 03:05 Labs: Abnormal Lab Results - Last 24 Hours (Table) 04/02/23 04/02/23 Range/Units 03:05 03:05 RBC 2.87 L (3.80-5.40) m/uL Hgb 9.4 L (11.4-16.0) gm/dL Hct 29.2 L (34.0-46.0) % MCV 101.9 H (80.0-100.0) fL Sodium 133 L (137-145) mmol/L Potassium 3.3 L (3.5-5.1) mmol/L Calcium 8.1 L (8.4-10.2) mg/dL C-Reactive Protein 3.8 H (<1.0) mg/dL Total Protein 4.7 L (6.3-8.2) g/dL Albumin 2.2 L (3.5-5.0) g/dL Assessment and Plan (1) Allergy to multiple antibiotics Current Visit: No Status: Acute Code(s): Z88.1 - ALLERGY STATUS TO OTHER ANTIBIOTIC AGENTS SNOMED Code(s): 250491655 (2) Gram-negative bacteremia Current Visit: No Status: Acute Code(s): R78.81 - BACTEREMIA SNOMED Code(s): 476074099318 (3) Urinary tract infection Current Visit: No Status: Acute Code(s): N39.0 - URINARY TRACT INFECTION, SITE NOT SPECIFIED SNOMED Code(s): 10116655 Plan: 1patient with a recent admission to the hospital with E. coli UTI and bacteremia in this patient who did have multiple antibiotic allergies requiring midline placement and IV Invanz patient did have an ultrasound that was negative for any structural abnormality not present to the hospital problem with the midline, the nursing staff has been advised to remove the current nonfunctioning midline and place another midline so patient can complete her IV antibiotic therapy 2-patient to continue Invanz 1 g daily she will be finishing her therapy as of 04/06/2023 that should be 2 weeks from her positive blood culture Dictation was produced using [employer] dictation software. please excuse any grammatical, word or spelling errors. Time with Patient: Less than 30
[2023-04-03] MEDS: ATORVASTATIN 40 MG TAB PO SCH (08:53)
[2023-04-03] MEDS: busPIRone HCl 10 MG TAB PO SCH (08:53)
[2023-04-03] MEDS: FLUoxetine HCL 20 MG CAP PO SCH (08:53)
[2023-04-03] MEDS: HEPARIN SODIUM,PORCINE/PF 5,000 UNIT/0.5 ML SYRINGE SQ SCH (08:54)
[2023-04-03] MEDS: hydrOXYzine pamoate 25 MG CAP PO SCH (08:55)
[2023-04-03] MEDS: hydrALAZINE HCL 50 MG TAB PO SCH (08:55)
[2023-04-03] MEDS: LOPERAMIDE 2 MG CAP PO SCH (08:55)
[2023-04-03] MEDS: MAGNESIUM OXIDE 400 MG TAB PO SCH (08:56)
[2023-04-03] MEDS: PROPRANOLOL 20 MG TAB PO SCH (08:56)
[2023-04-03] MEDS: LOSARTAN 50 MG TAB PO SCH (08:56)
[2023-04-03] MEDS: MULTIVITAMINS, THERA 1 EACH TAB PO SCH (08:56)
[2023-04-03] MEDS: SODIUM BICARBONATE TAB 650 MG TAB PO SCH (08:56)
[2023-04-03] MEDS ORDERED: FOLIC ACID 1 MG TAB PO SCH (09:00)
[2023-04-03 14:54] LABS: Blood Urea Nitrogen 13.2 mg/dL (9.0-27.0); Calcium 8.4 mg/dL (8.7-10.3); Carbon Dioxide 21.8 mmol/L (21.6-31.8); Chloride 109 mmol/L (96-109); Glucose 88 mg/dL (70-110); Potassium 4.4 mmol/L (3.5-5.5); Sodium 139 mmol/L (135-145)
--- NOTE | 2023-04-03 15:45 | P.PN ---
Subjective Progress Note Date: 04/03/23 Principal diagnosis: E coli UTI and bacteremia Patient is a 77-year-old female with multiple comorbidities recently admitted at this hospital with E. coli UTI and bacteremia patient did have multiple patient with multiple antibiotic allergies patient did got midline and was advised 10 day course of IV Invanz apparently the patient did have issues with a midline clotting of at home, For which the patient has been brought to the hospital. On today's evaluation that is 04/03/2023, the patient remains to be afebrile, patient is breathing comfortably on room air, the patient denies any headache or chest pain shortness of breath or cough no abdominal pain and no diarrhea Objective - Vital Signs Vital signs: Vital Signs Temp 98.4 F 04/03/23 08:29 Pulse 68 04/03/23 08:29 Resp 14 04/03/23 08:29 BP 164/67 04/03/23 08:29 Pulse Ox 97 04/03/23 08:29 FiO2 Intake & Output 04/02/23 04/03/23 04/03/23 18:59 06:59 18:59 Output Total 950 300 Balance -950 -300 Output: Urine 950 300 Other: Voiding Method External Catheter # Voids 1 - Exam GENERAL DESCRIPTION: An elderly female lying in bed in no distress RESPIRATORY SYSTEM: Unlabored breathing , decreased breath sounds at bases HEART: S1 S2 regular rate and rhythm , ABDOMEN: Soft , no tenderness EXTREMITIES: No edema feet - Labs CBC & Chem 7: 04/02/23 03:05 04/03/23 06:13 Labs: Abnormal Lab Results - Last 24 Hours (Table) 04/02/23 Range/Units 15:12 Vitamin B12 1255.0 H (200.0-944.0) pg/mL Assessment and Plan (1) Allergy to multiple antibiotics Current Visit: No Status: Acute Code(s): Z88.1 - ALLERGY STATUS TO OTHER ANTIBIOTIC AGENTS SNOMED Code(s): 938673899 (2) Gram-negative bacteremia Current Visit: No Status: Acute Code(s): R78.81 - BACTEREMIA SNOMED Code(s): 027146594245 (3) Urinary tract infection Current Visit: No Status: Acute Code(s): N39.0 - URINARY TRACT INFECTION, SITE NOT SPECIFIED SNOMED Code(s): 36438899 Plan: 1patient with a recent admission to the hospital with E. coli UTI and bacteremia in this patient who did have multiple antibiotic allergies requiring midline placement and IV Invanz patient did have an ultrasound that was negative for any structural abnormality not present to the hospital problem with the midline, the nursing staff has been advised to remove the current nonfunctioning midline and place another midline so patient can complete her IV antibiotic therapy 2-patient to continue Invanz 1 g daily she will be finishing her therapy as of 04/06/2023 , patient did get a new midline and updated prescription was provided to the gearcase assembler working on discharge Dictation was produced using [employer] dictation software. please excuse any grammatical, word or spelling errors. Time with Patient: Less than 30
[2023-04-03 16:11] VITALS: BP 126/75; PULSE 81; RESP 17; TEMP 98
[2023-04-03] MEDS: ERTAPENEM 1 GM in SODIUM CHLORIDE 0.9% 50 ML IVPB SCH (16:48)
[2023-04-04] MEDS ORDERED: ERGOCALCIFEROL 1,250 MCG (50,000 IU) CAPSULE PO SCH (09:00)
--- NOTE | 2023-04-04 17:13 | P.DS ---
Providers Date of admission: 03/31/23 18:45 Attending physician: Teresita Morgan Consults: 03/31/23 18:43 Consult Physician Urgent Consulting Provider: Deny Hicks Consult Reason/Comments: continued UTI treatment Do you want consulting provider notified?: Yes Primary care physician: Bright Forte MD Hospital Course: Final Diagnosis -Generalized weakness and fatigue likely due to medical deconditioning -Hyponatremia patient was hydrated repeat sodium level in the AM -Recent hospitalization for UTI/Bacteremia with E.Coli currently on IV invanz outpatient patient to finish course of antibiotic therapy complete on 04/06/23 patient requires new midline -IBS resumed on imodium -GERD -Hx dementia -Hx of IBS -Anxiety/Depression/Panic disorder continues on home medications -Chronic nicotine use counseled on smoking cessation Full Code Discharge Disposition Patient is stable for discharge home has received a new midline placed on 04/03/2023 and patient to continue course of antibiotics outpatient with IV Invanz. Atarax to discontinue L7 30 09/26/2022 and patient to follow-up with Dr. Méndez outpatient. Patient is patient with weakness on the lower extremities and patient has been recommended for subacute rehab however patient is denying at this time and will return home with home care services. Recommended to repeat a BMP in 2-3 days and see PCP. Hospital Course This is a 77 year old female with medical history of GERD, dementia, hypertension, hyperlipidemia, IBS, anxiety/depression, bipolar/panic disorder and chronic nicotine use. Patient was recently admitted to the hospital with UTI and bacteremia with E. Coli was discharged on IV invanz through midline for 10 days. Patient has had issues with midline clotting off at home and has been to the ER for this. Presents now with increased weakness and inability to ambulate since being discharged. No fever or chills, no dysuria urgency or frequency reported. No shortness of breath or chest pain. Patient had a repeat urinalysis done which is essentially negative. No white count. patient will be evaluated by Infectious disease and physical therapy likely will need subacute rehab on discharge. Patient has refused rehab and wanting to DC home with home care. ID recommending to continue course of antibiotics and patient received a new midline. Patient had hyponatremia on admission with a sodium level 132 this is attributed to dehydration and patient received IV fluids, sodium is improving up to 139, potassium is 4.4, BUN 13.2, creatinine 1.1. B12 was high normal and folate was low at 5.90 patient was discharged for supplementation. B12 and Bust[place]ante were checked due to the anemia macrocytic. Because of the hyponatremia found on admission patient's losartan hydrochlorothiazide combination was discontinued and patient was started on losartan 50 mg daily instead. Currently denying chest pain, no shortness of breath, no nausea vomiting diarrhea. Lungs are clear, S1-S2 auscultated. Focal neurological exam is negative and patient has been cleared medically for discharge with the above-mentioned recommendations Please see medication reconciliation for a list of current medication. Thank you for allowing us to participate in the care of this patient. The impression and plan of care has been dictated by Hortensia Costa, Nurse Practitioner as directed. Dr. Shelia MD I have performed a history and physical examination and medical decision making of this patient, discussed the same with the dictator, and agree with the dictators assessment and plan as written, documented as a scribe. Based on total visit time, I have performed more than 50% of this visit. Patient Condition at Discharge: Stable Plan - Discharge Summary Discharge Rx Participant: No New Discharge Prescriptions: New Losartan [Cozaar] 50 mg PO DAILY #30 tab Magnesium Oxide [Mag-Ox] 400 mg PO DAILY #15 tab Folic Acid 1 mg PO DAILY #30 tab Continue busPIRone HCL 10 mg PO BID Propranolol [Inderal] 20 mg PO BID OLANZapine [ZyPREXA] 10 mg PO HS Melatonin 5 mg PO HS hydrOXYzine pamoate [Vistaril] 25 mg PO BID HYDROcodone/APAP 7.5-325MG [[place]uda 7.5-325] 1 tab PO TID Furosemide [Lasix] 20 mg PO DAILY PRN PRN Reason: Edema Aspirin EC [Ecotrin Low Dose] 81 mg PO HS Multivit with Calcium,Iron,Min [Women's Multivitamin] 1 tab PO DAILY Loperamide HCl [Imodium A-D] 2 mg PO DAILY QUEtiapine [SEROquel] 75 mg PO HS Tiotropium 2.5 Mcg/Puff [Spiriva Respimat 2.5 Mcg] 2 puff INHALATION RT-DAILY PRN PRN Reason: Shortness Of Breath Ergocalciferol [Vitamin D2 (1250 Mcg = 82774 Iu)] 1,250 mcg PO SA Atorvastatin [Lipitor] 40 mg PO DAILY #30 tab Sodium Bicarbonate Tab 650 mg PO TID #90 tab Lactulose [Constulose] 10 gm PO DAILY PRN PRN Reason: Constipation FLUoxetine HCL 40 mg PO DAILY hydrALAZINE HCL [Apresoline] 50 mg PO BID #60 tab Ertapenem [INVanz] 0.5 gm IVPB DAILY@1400 10 Days #10 each Discontinued Losartan/Hydrochlorothiazide [Losartan-Hctz 100-12.5 mg Tab] 1 tab PO DAILY Discharge Medication List busPIRone HCL 10 mg PO BID 11/09/19 [History] Aspirin EC [Ecotrin Low Dose] 81 mg PO HS 08/23/21 [History] FLUoxetine HCL 40 mg PO DAILY 08/23/21 [History] Furosemide [Lasix] 20 mg PO DAILY PRN 08/23/21 [History] HYDROcodone/APAP 7.5-325MG [Buda 7.5-325] 1 tab PO TID 08/23/21 [History] Lactulose [Constulose] 10 gm PO DAILY PRN 08/23/21 [History] Loperamide HCl [Imodium A-D] 2 mg PO DAILY 08/23/21 [History] Melatonin 5 mg PO HS 08/23/21 [History] Multivit with Calcium,Iron,Min [Women's Multivitamin] 1 tab PO DAILY 08/23/21 [History] OLANZapine [ZyPREXA] 10 mg PO HS 08/23/21 [History] Propranolol [Inderal] 20 mg PO BID 08/23/21 [History] QUEtiapine [SEROquel] 75 mg PO HS 08/23/21 [History] Tiotropium 2.5 Mcg/Puff [Spiriva Respimat 2.5 Mcg] 2 puff INHALATION RT-DAILY PRN 08/23/21 [History] hydrOXYzine pamoate [Vistaril] 25 mg PO BID 08/23/21 [History] Ergocalciferol [Vitamin D2 (1250 Mcg = 11245 Iu)] 1,250 mcg PO SA 08/11/22 [History] Atorvastatin [Lipitor] 40 mg PO DAILY #30 tab 03/24/23 [Rx] Ertapenem [INVanz] 0.5 gm IVPB DAILY@1400 10 Days #10 each 03/24/23 [Rx] Sodium Bicarbonate Tab 650 mg PO TID #90 tab 03/24/23 [Rx] hydrALAZINE HCL [Apresoline] 50 mg PO BID #60 tab 03/24/23 [Rx] Folic Acid 1 mg PO DAILY #30 tab 04/03/23 [Rx] Losartan [Cozaar] 50 mg PO DAILY #30 tab 04/03/23 [Rx] Magnesium Oxide [Mag-Ox] 400 mg PO DAILY #15 tab 04/03/23 [Rx] Follow up Appointment(s)/Referral(s): Bright Forte MD [Primary Care Provider] - 04/06/23 4:45 pm (You will see Estela Duong PA at the [place] location.) Jorge L Clemente,Home Care [NON-STAFF] - As Needed [facility], [REFERRING] - 1 Week Deny Hicks MD [STAFF PHYSICIAN] - 1 Week (The office is not available to take calls at this time please call on thursday to schedule follow up appointment.) Patient Instructions/Handouts: Folic Acid (By mouth), Losartan (By mouth), Magnesium Oxide (By mouth) Activity/Diet/Wound Care/Special Instructions: Patient to return home with home care Complete course of antibiotics as recommended by Dr Hicks to complete on 05/07/23 with IV invanz Last dose given 04/03/23 @ [address] Hicks and your PCP Dr Forte on discharge Folate level was low, begin taking folic acid 1 mg daily. Discharge Disposition: HOME WITH HOME HEALTH SERVICES
== END 2023-04-03 18:46 | disposition home health service (06) | DRG 641 ==
LOC: EC 15:15 → 5NMEDONC 18:45
PROVIDERS: ADMIT Hospitalist; ATTEND Hospitalist
PROC: 05HB33Z Insertion of Infusion Device into Right Basilic Vein, Percutaneous Approach (ICD-10-PCS; principal; 2023-03-31)
DX: E87.1 Hypo-osmolality and hyponatremia (principal); F03.94 Unspecified dementia, unspecified severity, with anxiety; N39.0 Urinary tract infection, site not specified; I10 Essential (primary) hypertension; E78.5 Hyperlipidemia, unspecified; F41.0 Panic disorder [episodic paroxysmal anxiety]; F17.210 Nicotine dependence, cigarettes, uncomplicated; K21.9 Gastro-esophageal reflux disease without esophagitis; K58.9 Irritable bowel syndrome, unspecified; Z88.1 Allergy status to other antibiotic agents; B96.20 Unspecified Escherichia coli [E. coli] as the cause of diseases classified elsewhere; Z71.6 Tobacco abuse counseling; F41.9 Anxiety disorder, unspecified; F32.A Depression, unspecified; F03.90 Unspecified dementia, unspecified severity, without behavioral disturbance, psychotic disturbance, mood disturbance, and anxiety; G89.29 Other chronic pain; R10.9 Unspecified abdominal pain; M25.562 Pain in left knee; M25.561 Pain in right knee; M54.50 Low back pain, unspecified; Z87.440 Personal history of urinary (tract) infections; Z90.49 Acquired absence of other specified parts of digestive tract; Z98.42 Cataract extraction status, left eye; Z98.41 Cataract extraction status, right eye; Z87.19 Personal history of other diseases of the digestive system; Z88.8 Allergy status to other drugs, medicaments and biological substances; Z91.81 History of falling
CPT/HCPCS: 36410; 36415; 70450; 71046; 76937; 80048; 80053; 81001; 82607; 82746; 83605; 83735; 84100; 85025; 85610; 85730; 86140; 87040; 93005; 96360; 96361; 99291

== ENCOUNTER → 2023-05-25 | Outpatient (CLI) | payer MEDICARE ==
[2023-05-25 14:02] VITALS: BP 147/83; PULSE 51; TEMP 97.6; BMI 26.9
--- NOTE | 2023-06-10 09:05 | P.HPBAR ---
Bariatric H&P - History & Physicial H&P Date: 05/25/23 History & Physicial: Visit/CC: lap band Patient initial contact: Initial weight: 59.562 kg Initial weight in pounds: 131.31 Height: 5 ft Initial BMI: 25.6 Last weight: Current weight: 62.596 kg Current weight in pounds: 138.00 Current BMI: 26.9 [place] body weight (based on NIH guidelines): 45.359 kg Excess body weight loss: The patient is a 78 year-old F who presents for Bariatric Assessment. Patient resents today for Silva follow-up. She has lost 8 pounds her last visit. She has minimal complaints of GERD. She denies any dysphagia. Past Medical History Past Medical History: Dementia, GERD/Reflux, Hyperlipidemia, Hypertension, Osteoarthritis (OA), Pneumonia, Thyroid Disorder, Vascular Disorder Additional Past Medical History / Comment(s): Chronic abdominal pain, IBS/colitis, gastritis, chronic low back and bilateral knee pain, recent L lower leg swelling at times, UTIs, bronchitis/recently approximately 2 weeks ago, past elevated LFTs, scarlet fever as a child. 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 Past Anesthesia/Blood Transfusion Reactions: No Reported Reaction Additional Past Anesthesia/Blood Transfusion Reaction / Comm: No blood transfusion to date Past Psychological History: Anxiety, Bipolar, Depression, Panic Disorder Additional Psychological History / Comment(s): OCD. Pt resides with a roomate. She has a cane but does not use it often. She drives Smoking Status: Former smoker Past Alcohol Use History: None Reported Additional Past Alcohol Use History / Comment(s): STARTED SMOKING AT AGE 18 DOWN TO 1/2 PPD (on and off) Past Drug Use History: None Reported Additional Drug Use History / Comment(s): 1/2 pack /day x 50 years (off and on) - Past Family History Father Family Medical History: Cancer Additional Family Medical History / Comment(s): Prostate and bone cancer Mother Family Medical History: Dementia Surgical - Exam Vital Signs Temp Pulse BP 97.6 F 51 L 147/83 05/25/23 13:58 05/25/23 13:58 05/25/23 13:58 - General well developed, well nourished, no distress - Eyes PERRL - Abdomen Abdomen: soft, non tender Bariatric Assessment & Plan Plan: Patient is doing well with recurrent LAP-BAND adjustment volume. She'll be observed. Her GERD is minimal. She'll follow-up in 4 weeks. Bariatric Checklist Checklist: Plan: Checklist: EGD: 1. Hiatal hernia: 2. H. Pylori: HgbA1c: Vitamin D: Smoking: Current every day smoker Primary care physician referral: Vicky Psychiatry clearance: Cardiology clearance: Sleep study: Diet journal: VTE risk score: VTE risk level: Rehab needs at discharge:
== END ==
LOC: BARWHC3 13:45
PROVIDERS: ATTEND Surgery
DX: K21.9 Gastro-esophageal reflux disease without esophagitis (principal); E78.5 Hyperlipidemia, unspecified; I10 Essential (primary) hypertension; M19.90 Unspecified osteoarthritis, unspecified site; E07.9 Disorder of thyroid, unspecified; G89.29 Other chronic pain; K58.9 Irritable bowel syndrome, unspecified; Z87.891 Personal history of nicotine dependence; Z46.51 Encounter for fitting and adjustment of gastric lap band; Z86.59 Personal history of other mental and behavioral disorders; Z88.1 Allergy status to other antibiotic agents; Z88.0 Allergy status to penicillin; Z88.8 Allergy status to other drugs, medicaments and biological substances; Z79.899 Other long term (current) drug therapy
CPT/HCPCS: 99211

== ENCOUNTER → 2024-03-28 | Outpatient (CLI) | payer MEDICARE ==
[2024-03-28 11:02] VITALS: BP 146/78; PULSE 66; RESP 16; TEMP 98.6; BMI 29.7
--- NOTE | 2024-03-28 15:59 | P.HPBAR ---
Bariatric H&P - History & Physicial H&P Date: 03/28/24 History & Physicial: Visit/CC: F/u Lapband Patient initial contact: Initial weight: 59.562 kg Initial weight in pounds: 131.31 Height: 5 ft Initial BMI: 25.6 Last weight: Current weight: 68.946 kg Current weight in pounds: 152.00 Current BMI: 29.7 [place] body weight (based on NIH guidelines): 45.359 kg Excess body weight loss: The patient is a 78 year-old F who presents for Bariatric Assessment. Patient presents today for Lap-Band follow-up. She is requesting a fill of her band. Past Medical History Past Medical History: Dementia, GERD/Reflux, Hyperlipidemia, Hypertension, Osteo arthritis (OA), Pneumonia, Thyroid Disorder, Vascular Disorder Additional Past Medical History / Comment(s): Chronic abdominal pain, IBS/colitis, gastritis, chronic low back and bilateral knee pain, recent L lower leg swelling at times, UTIs, bronchitis/recently approximately 2 weeks ago, past elevated LFTs, scarlet fever as a child. 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 Past Anesthesia/Blood Transfusion Reactions: No Reported Reaction Additional Past Anesthesia/Blood Transfusion Reaction / Comm: No blood transfusion to date Past Psychological History: Anxiety, Bipolar, Depression, Panic Disorder Additional Psychological History / Comment(s): OCD. Pt resides with a roomate. She has a cane but does not use it often. Smoking Status: Current every day smoker Past Alcohol Use History: None Reported Additional Past Alcohol Use History / Comment(s): STARTED SMOKING AT AGE 18 DOWN TO 1/2 PPD (on and off) Past Drug Use History: None Reported Additional Drug Use History / Comment(s): 1/2 pack /day x 50 years (off and on) - Past Family History Father Family Medical History: Cancer Additional Family Medical History / Comment(s): Prostate and bone cancer Mother Family Medical History: Dementia Surgical - Exam Vital Signs Temp Pulse Resp BP 98.6 F 66 16 146/78 03/28/24 10:53 03/28/24 10:53 03/28/24 10:53 03/28/24 10:53 - General Vital signs appear stable. Abdomen is soft nontender Bariatric Assessment & Plan Plan: Patient Lap-Band was adjusted. She had 0.5 cc Ativan. She will follow-up in 4 weeks. Bariatric Checklist Checklist: Plan: Checklist: EGD: 1. Hiatal hernia: 2. H. Pylori: HgbA1c: Vitamin D: Smoking: Current every day smoker Primary care physician referral: [facility] Psychiatry clearance: Cardiology clearance: Sleep study: Diet journal: VTE risk score: VTE risk level: Rehab needs at discharge:
== END ==
LOC: BARWHC3 10:29
PROVIDERS: ATTEND Surgery
DX: Z46.51 Encounter for fitting and adjustment of gastric lap band (principal); E66.01 Morbid (severe) obesity due to excess calories; F17.210 Nicotine dependence, cigarettes, uncomplicated; Z88.1 Allergy status to other antibiotic agents; Z88.0 Allergy status to penicillin; Z88.8 Allergy status to other drugs, medicaments and biological substances; Z68.29 Body mass index [BMI] 29.0-29.9, adult
CPT/HCPCS: 43999

== ENCOUNTER → 2024-04-11 | Outpatient (CLI) | payer MEDICARE | END | disposition home or self-care (01) | LOC: LABPAT 09:26 | PROVIDERS: ATTEND Surgery | DX: Z01.812 Encounter for preprocedural laboratory examination (principal); K43.2 Incisional hernia without obstruction or gangrene | CPT/HCPCS: 86850; 86900; 86901 ==

== ENCOUNTER 2024-04-19 13:00 | Inpatient (IN) | payer MEDICARE ==
[~2024-04-19 13:00] MED LIST changes: +ACETAMINOPHEN TAB 500 MG TAB ONE; -DEXAMETHASONE SOD PHOSPHATE 10 MG/ML 1 ML VIAL IV ONE; +DEXAMETHASONE SOD PHOSPHATE 4 MG/ML 1 ML VIAL ONE; +GLYCOPYRROLATE 0.2 MG/ML 2 ML VIAL ONE; +HEPARIN SODIUM,PORCINE 5,000 UNIT/ML 1 ML VIAL ONE; -HEPARIN SODIUM,PORCINE 5,000 UNIT/ML 1 ML VIAL SQ ONE; +HYDROmorphone 0.5 MG/0.5 ML SYRINGE ONE; +KETAMINE HCL IN 0.9 % NACL 50 MG/5 ML SYRINGE ONE; -LIDOCAINE 1% (10MG/ML) FOR IV START INTRADERMA PRN; +LIDOCAINE 1% INJ 10MG/ML (20 ML MDV) ONE; -MIDAZOLAM 2 MG/2 ML VIAL IV PRN; +MIDAZOLAM 2 MG/2 ML VIAL ONE; +NEOSTIGMINE 1 MG/ML 10 ML VIAL ONE; +ONDANSETRON 4 MG/2 ML VIAL ONE; +PROPOFOL 10 MG/ML 20 ML VIAL IV ONE; +ROCURONIUM 10 MG/ML (5 ML VIAL) IV ONE; +ROPIVACAINE 5 MG/ML 30 ML VIAL ONE; +SODIUM CHLORIDE 0.9% (PF) 10 ML VIAL ONE; +SODIUM CHLORIDE 0.9% (PF) VIAL 20 ML ONE; +SUCCINYLCHOLINE CHLORIDE 200 MG/10 ML VIAL IV ONE; +ePHEDrine 50 MG/ML 1 ML VIAL ONE; -fentaNYL (PF) 50 MCG/ML 2 ML AMP IV PRN; +fentaNYL (PF) 50 MCG/ML 2 ML AMP ONE; +hydrALAZINE HCL 20 MG/ML 1 ML VIAL ONE
[2024-04-19] MEDS ORDERED: HYDROmorphone 1 MG/ML 1 ML SYRINGE ONE ×2 (19:00)
[2024-04-20] MEDS ORDERED: busPIRone HCl 10 MG TAB ONE ×3 (00:02→23:38)
[2024-04-20] MEDS ORDERED: ATORVASTATIN 40 MG TAB ONE ×2 (00:02→23:38)
[2024-04-20] MEDS ORDERED: HYDROmorphone 1 MG/ML 1 ML SYRINGE ONE ×4 (00:03→06:14)
[2024-04-20] MEDS ORDERED: ASPIRIN 81 MG ONE ×2 (09:23)
[2024-04-20] MEDS ORDERED: hydrALAZINE HCL 50 MG TAB ONE (09:23)
[2024-04-20] MEDS ORDERED: LOSARTAN 50 MG TAB ONE (09:24)
[2024-04-20] MEDS ORDERED: FLUoxetine HCL 20 MG CAP ONE (09:24)
[2024-04-20] MEDS ORDERED: HYDROcodone/APAP 5-325MG 1 EACH TAB ONE ×4 (09:34→16:28)
[2024-04-21] MEDS ORDERED: HYDROcodone/APAP 5-325MG 1 EACH TAB ONE ×4 (00:11→06:30)
[2024-04-21] MEDS ORDERED: hydrALAZINE HCL 50 MG TAB ONE (08:07)
[2024-04-21] MEDS ORDERED: ASPIRIN 81 MG ONE ×2 (08:07)
[2024-04-21] MEDS ORDERED: FLUoxetine HCL 20 MG CAP ONE (08:08)
[2024-04-21] MEDS ORDERED: LOPERAMIDE 2 MG CAP ONE (08:08)
[2024-04-21] MEDS ORDERED: hydroCHLOROthiazide 12.5 MG CAP ONE (08:08)
[2024-04-21] MEDS ORDERED: LOSARTAN 50 MG TAB ONE (08:08)
[2024-04-21] MEDS ORDERED: busPIRone HCl 10 MG TAB ONE ×2 (08:08→20:40)
[2024-04-21] MEDS ORDERED: ONDANSETRON 4 MG/2 ML VIAL ONE ×2 (09:22)
[2024-04-21] MEDS ORDERED: HYDROmorphone 1 MG/ML 1 ML SYRINGE ONE ×6 (09:22→22:23)
[2024-04-21] MEDS ORDERED: ATORVASTATIN 40 MG TAB ONE (20:40)
[2024-04-22] MEDS ORDERED: HYDROcodone/APAP 7.5-325MG 1 EACH TAB ONE ×4 (07:03→13:04)
[2024-04-22] MEDS ORDERED: hydroCHLOROthiazide 12.5 MG CAP ONE (09:47)
[2024-04-22] MEDS ORDERED: LOPERAMIDE 2 MG CAP ONE (09:47)
[2024-04-22] MEDS ORDERED: LACTOBACILLUS ACIDOPHILUS/PECT 1 EACH CAPSULE PO ONE (09:47)
[2024-04-22] MEDS ORDERED: ASPIRIN 81 MG ONE ×2 (09:47)
[2024-04-22] MEDS ORDERED: LOSARTAN 50 MG TAB ONE (09:48)
[2024-04-22] MEDS ORDERED: busPIRone HCl 10 MG TAB ONE (09:48)
[2024-04-22] MEDS ORDERED: hydrALAZINE HCL 50 MG TAB ONE (10:34)
--- NOTE | 2024-04-29 15:53 | OP ---
OPERATIVE REPORT DATE OF SERVICE : 04/19/2024 PREOPERATIVE DIAGNOSIS: Incisional hernia. POSTOPERATIVE DIAGNOSES: 1. Incisional hernia. 2. Lap band port malfunction. PROCEDURES: 1. Laparoscopic robotic-assisted repair of incisional hernia. 2. Lap band port removal and replacement, laparoscopic. UNIVERSITY TEACHER: None. ANESTHESIA: General endotracheal tube anesthesia. ESTIMATED BLOOD LOSS: 5 mL. DESCRIPTION OF PROCEDURE: Patient was placed on the operating table in the supine position. She received general endotracheal tube anesthesia. Her abdomen was prepped and draped in usual sterile fashion. The patient had a hernia, which was located just above the port site. Using a 5 mm optical trocar under direct vision, peritoneal cavity was entered and then the abdomen was insufflated. After adequate insufflation, a 5 mm laparoscope was placed in peritoneal cavity. The hernia was visualized. The tube appeared to go through the hernia. At this point, was inspected. There appeared to be a breakage of the tube. Next, the skin was incised with the port and the port was dissected free and removed. The tube was placed in the oral cavity. Next, a 12 mm robotic trocar was placed in the right lateral position. An 8 mm robotic trocar was placed at the umbilicus and another 8 mm trocar was placed at the left lateral position. The patient was then docked to the robot. Several adhesions were lysed. Then, the fascial defect was closed with #1 Stratafix suture. The Ventralight mesh was then placed over top of the , secured with 2-0 V-Loc suture. The needles were then withdrawn. The tube was then brought out through the 12 mm trocar site. The new port was then connected to the tube. The trocars were then withdrawn. The port was then secured to the fascia using 0 Nurolon suture. The port was then secured. After the port was secured, it was flushed with saline. Then, 1 cc of saline was left in the port. The skin was closed with interrupted 3-0 Monocryl suture. Dermabond dressing applied. Patient tolerated procedure well. She was sent to recovery room in stable condition. MMODL / IJN: [id number] /
== END 2024-04-22 13:40 | disposition home or self-care (01) | DRG 328 ==
LOC: OR 13:00 → DISRECOVER 14:00
PROVIDERS: ADMIT Surgery; ATTEND Surgery
PROC: 8E0W4CZ Robotic Assisted Procedure of Trunk Region, Percutaneous Endoscopic Approach (ICD-10-PCS; 2024-04-19)
PROC: 0WUF4JZ Supplement Abdominal Wall with Synthetic Substitute, Percutaneous Endoscopic Approach (ICD-10-PCS; principal; 2024-04-19 08:55)
PROC: 0DP64CZ Removal of Extraluminal Device from Stomach, Percutaneous Endoscopic Approach (ICD-10-PCS; 2024-04-19 08:55)
DX: K43.2 Incisional hernia without obstruction or gangrene (principal); Z88.1 Allergy status to other antibiotic agents; F31.9 Bipolar disorder, unspecified; F42.9 Obsessive-compulsive disorder, unspecified; E11.9 Type 2 diabetes mellitus without complications; K58.9 Irritable bowel syndrome, unspecified; F41.9 Anxiety disorder, unspecified; E03.9 Hypothyroidism, unspecified; Z79.890 Hormone replacement therapy; Z90.49 Acquired absence of other specified parts of digestive tract; Z98.51 Tubal ligation status; Z98.84 Bariatric surgery status
CPT/HCPCS: 94640

== ENCOUNTER → 2024-05-02 | Outpatient (CLI) | payer MEDICARE ==
[2024-05-02 11:23] VITALS: BP 124/62; PULSE 60; RESP 16; TEMP 98; BMI 28.3
--- NOTE | 2024-05-04 08:07 | P.HPBAR ---
Bariatric H&P - History & Physicial H&P Date: 05/02/24 History & Physicial: Visit/CC: f/u hernia/ lap band Patient initial contact: Initial weight: 59.562 kg Initial weight in pounds: 131.31 Height: 5 ft Initial BMI: 25.6 Last weight: Current weight: 65.771 kg Current weight in pounds: 145.00 Current BMI: 28.3 [place] body weight (based on NIH guidelines): 45.359 kg Excess body weight loss: The patient is a 78 year-old F who presents for Bariatric Assessment. Patient presents today for Silva's follow-up. Patient had her recent incisional hernia and Lap-Band port placement. She is doing well. Patient has lost a pound since her last visit. Her gerd is minimal. Past Medical History Past Medical History: Dementia, GERD/Reflux, Hyperlipidemia, Hypertension, Osteoarthritis (OA), Pneumonia, Thyroid Disorder, Vascular Disorder Additional Past Medical History / Comment(s): Chronic abdominal pain, IBS/colitis, gastritis, chronic low back and bilateral knee pain, recent L lower leg swelling at times, UTIs, bronchitis/recently approximately 2 weeks ago, past elevated LFTs, scarlet fever as a child. 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 incisional hernia repair with lap band replacement 04/19/24 Past Anesthesia/Blood Transfusion Reactions: No Reported Reaction Additional Past Anesthesia/Blood Transfusion Reaction / Comm: No blood transfusion to date Past Psychological History: Anxiety, Bipolar, Depression, Panic Disorder Additional Psychological History / Comment(s): OCD. Pt resides with a roomate. She has a cane but does not use it often. Smoking Status: Former smoker Past Alcohol Use History: None Reported Additional Past Alcohol Use History / Comment(s): STARTED SMOKING AT AGE 18 DOWN TO 1/2 PPD (on and off) Past Drug Use History: None Reported Additional Drug Use History / Comment(s): 1/2 pack /day x 50 years (off and on) stopped smoking 04/19/24 - Past Family History Father Family Medical History: Cancer Additional Family Medical History / Comment(s): Prostate and bone cancer Mother Family Medical History: Dementia Surgical - Exam Vital Signs Temp Pulse Resp BP 98.0 F 60 16 124/62 05/02/24 11:07 05/02/24 11:07 05/02/24 11:07 05/02/24 11:07 - General well developed, no distress - Eyes PERRL - ENT normal pinna - Neck no masses - Respiratory normal expansion - Cardiovascular Rhythm: regular - Abdomen Abdomen: soft, non tender Bariatric Assessment & Plan Plan: Patient is doing well. Her gerd is minimal only observe. She will follow-up in 4 weeks for possible Lap-Band adjustment. Bariatric Checklist Checklist: Plan: Checklist: EGD: 1. Hiatal hernia: 2. H. Pylori: HgbA1c: Vitamin D: Smoking: Current every day smoker Primary care physician referral: [facility] Psychiatry clearance: Cardiology clearance: Sleep study: Diet journal: VTE risk score: VTE risk level: Rehab needs at discharge:
== END ==
LOC: BARWHC3 10:41
PROVIDERS: ATTEND Surgery
DX: E66.01 Morbid (severe) obesity due to excess calories
CPT/HCPCS: 99211

== ENCOUNTER → 2024-05-30 | Outpatient (CLI) | payer MEDICARE ==
[2024-05-30 10:48] VITALS: BP 118/58; PULSE 57; RESP 16; TEMP 98.4; BMI 27.7
--- NOTE | 2024-05-30 15:01 | P.HPBAR ---
Bariatric H&P - History & Physicial H&P Date: 05/30/24 History & Physicial: Visit/CC: f/u lap band Patient initial contact: Initial weight: 59.562 kg Initial weight in pounds: 131.31 Height: 5 ft Initial BMI: 25.6 Last weight: Current weight: 64.41 kg Current weight in pounds: 142.00 Current BMI: 27.7 [place] body weight (based on NIH guidelines): 45.359 kg Excess body weight loss: The patient is a 78 year-old F who presents for Bariatric Assessment. Patient presents today for bariatric follow-up. She has lost another 3 pound since her last visit. She has minimal gerd. Past Medical History Past Medical History: Dementia, GERD/Reflux, Hyperlipidemia, Hypertension, Osteoarthritis (OA), Pneumonia, Thyroid Disorder, Vascular Disorder Additional Past Medical History / Comment(s): Chronic abdominal pain, IBS/c olitis, gastritis, chronic low back and bilateral knee pain, recent L lower leg swelling at times, UTIs, bronchitis/recently approximately 2 weeks ago, past elevated LFTs, scarlet fever as a child. 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 incisional hernia repair with lap band replacement 04/19/24 Past Anesthesia/Blood Transfusion Reactions: No Reported Reaction Additional Past Anesthesia/Blood Transfusion Reaction / Comm: No blood transfusion to date Past Psychological History: Anxiety, Bipolar, Depression, Panic Disorder Additional Psychological History / Comment(s): OCD. Pt resides with a roomate. She has a cane but does not use it often. Smoking Status: Current every day smoker Past Alcohol Use History: None Reported Additional Past Alcohol Use History / Comment(s): smokes approx 5 cigarettes a day Past Drug Use History: None Reported - Past Family History Father Family Medical History: Cancer Additional Family Medical History / Comment(s): Prostate and bone cancer Mother Family Medical History: Dementia Surgical - Exam Vital Signs Temp Pulse Resp BP 98.4 F 57 L 16 118/58 05/30/24 10:38 05/30/24 10:38 05/30/24 10:38 05/30/24 10:38 - General well developed, well nourished - Eyes PERRL - Neck no masses - Respiratory normal expansion - Cardiovascular Rhythm: regular - Abdomen Abdomen: soft, non tender Bariatric Assessment & Plan Plan: Status post lap band procedure. Patient doing well. Her gerd is minimal and will be observed. She will follow-up in 4 weeks. Bariatric Checklist Checklist: Plan: Checklist: EGD: 1. Hiatal hernia: 2. H. Pylori: HgbA1c: Vitamin D: Smoking: Current every day smoker Primary care physician referral: [facility] Psychiatry clearance: Cardiology clearance: Sleep study: Diet journal: VTE risk score: VTE risk level: Rehab needs at discharge:
== END ==
LOC: BARWHC3 10:21
PROVIDERS: ATTEND Surgery
CPT/HCPCS: 99211

== ENCOUNTER → 2024-08-29 | Outpatient (CLI) | payer MEDICARE ==
[2024-08-29 10:54] VITALS: BP 115/63; PULSE 69; RESP 16; TEMP 98.1; BMI 25.4
--- NOTE | 2024-08-29 11:26 | P.HPBAR ---
Bariatric H&P - History & Physicial H&P Date: 08/29/24 History & Physicial: Visit/CC: f/u lap band Patient initial contact: Initial weight: 59.562 kg Initial weight in pounds: 131.31 Height: 5 ft Initial BMI: 25.6 Last weight: Current weight: 58.967 kg Current weight in pounds: 130.00 Current BMI: 25.4 [place] body weight (based on NIH guidelines): 45.359 kg Excess body weight loss: 4.1% The patient is a 79 year-old F who presents for Bariatric Assessment. Patient presents today for bariatric e follow-up. Patient is lost 12 pounds her last visit. She denies any GERD or reflux symptoms. Past Medical History Past Medical History: Dementia, GERD/Reflux, Hyperlipidemia, Hypertension, Osteoarthritis (OA), Pneumonia, Thyroid Disorder, Vascular Disorder Additional Past Medical History / Comment(s): Chronic abdominal pain, IBS/colitis, gastritis, chronic low back and bilateral knee pain, recent L lower leg swelling at times, UTIs, bronchitis/recently approximately 2 weeks ago, past elevated LFTs, scarlet fever as a child. 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 incisional hernia repair with lap band replacement 04/19/24 Past Anesthesia/Blood Transfusion Reactions: No Reported Reaction Additional Past Anesthesia/Blood Transfusion Reaction / Comm: No blood transfusion to date Past Psychological History: Anxiety, Bipolar, Depression, Panic Disorder Additional Psychological History / Comment(s): OCD. Pt resides with a roomate. She has a cane but does not use it often. Smoking Status: Current every day smoker Past Alcohol Use History: None Reported Additional Past Alcohol Use History / Comment(s): smokes approx 5 cigarettes a day Past Drug Use History: None Reported Additional Drug Use History / Comment(s): 1/2 pack /day x 50 years (off and on) stopped smoking 04/19/24 - Past Family History Father Family Medical History: Cancer Additional Family Medical History / Comment(s): Prostate and bone cancer Mother Family Medical History: Dementia Surgical - Exam Vital Signs Temp Pulse Resp BP 98.1 F 69 16 115/63 08/29/24 10:37 08/29/24 10:37 08/29/24 10:37 08/29/24 10:37 - General well developed, well nourished, no distress - Eyes PERRL - ENT normal pinna - Neck no masses - Respiratory normal expansion - Cardiovascular Rhythm: regular - Abdomen Abdomen: soft, non tender Bariatric Assessment & Plan Plan: Patient's gerd is minimal will be observed. She will follow-up in 4 weeks. Bariatric Checklist Checklist: Plan: Checklist: EGD: 1. Hiatal hernia: 2. H. Pylori: HgbA1c: Vitamin D: Smoking: Current every day smoker Primary care physician referral: [facility] Psychiatry clearance: Cardiology clearance: Sleep study: Diet journal: VTE risk score: VTE risk level: Rehab needs at discharge:
== END ==
LOC: BARWHC3 10:25
PROVIDERS: ATTEND Surgery
DX: E66.01 Morbid (severe) obesity due to excess calories (principal); F17.210 Nicotine dependence, cigarettes, uncomplicated; Z88.1 Allergy status to other antibiotic agents; Z88.0 Allergy status to penicillin; Z88.8 Allergy status to other drugs, medicaments and biological substances; Z68.25 Body mass index [BMI] 25.0-25.9, adult
CPT/HCPCS: 99211

== ENCOUNTER → 2024-09-26 | Outpatient (CLI) | payer MEDICARE ==
[2024-09-26 10:55] VITALS: BP 119/72; PULSE 67; RESP 16; TEMP 98.2; BMI 24.7
--- NOTE | 2024-09-26 16:58 | P.HPBAR ---
Bariatric H&P - History & Physicial H&P Date: 09/26/24 History & Physicial: Visit/CC: f/u lap band Patient initial contact: Initial weight: 59.562 kg Initial weight in pounds: 131.31 Height: 5 ft Initial BMI: 25.6 Last weight: Current weight: 57.606 kg Current weight in pounds: 127.00 Current BMI: 24.7 [place] body weight (based on NIH guidelines): 45.359 kg Excess body weight loss: 13.7% The patient is a 79 year-old F who presents for Bariatric Assessment. Patient presents today for bariatric follow-up. She has lost 3 pounds her last visit. She has minimal complaints of GERD. Past Medical History Past Medical History: Dementia, GERD/Reflux, Hyperlipidemia, Hypertension, Osteoarthritis (OA), Pneumonia, Thyroid Disorder, Vascular Disorder Additional Past Medical History / Comment(s): Chronic abdominal pain, IBS/colitis, gastritis, chronic low back and bilateral knee pain, recent L lower leg swelling at times, UTIs, bronchitis/recently approximately 2 weeks ago, past elevated LFTs, scarlet fever as a child. 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 incisional hernia repair with lap band replacement 04/19/24 Past Anesthesia/Blood Transfusion Reactions: No Reported Reaction Additional Past Anesthesia/Blood Transfusion Reaction / Comm: No blood transfusion to date Past Psychological History: Anxiety, Bipolar, Depression, Panic Disorder Additional Psychological History / Comment(s): OCD. Pt resides with a roomate. She has a cane but does not use it often. Smoking Status: Current every day smoker Past Alcohol Use History: None Reported Past Drug Use History: None Reported Additional Drug Use History / Comment(s): 1/2 pack /day x 50 years (off and on) pt, still smoking - Past Family History Father Family Medical History: Cancer Additional Family Medical History / Comment(s): Prostate and bone cancer Mother Family Medical History: Dementia Surgical - Exam Vital Signs Temp Pulse Resp BP 98.2 F 67 16 119/72 09/26/24 10:45 09/26/24 10:45 09/26/24 10:45 09/26/24 10:45 - General well developed, well nourished, no distress - Eyes PERRL - ENT normal pinna - Neck no masses - Respiratory normal expansion - Cardiovascular Rhythm: regular - Abdomen Abdomen: soft, non tender Bariatric Assessment & Plan Plan: Patient will be observed. Her gerd is minimal. She will follow-up in 4 weeks. Bariatric Checklist Checklist: Plan: Checklist: EGD: 1. Hiatal hernia: 2. H. Pylori: HgbA1c: Vitamin D: Smoking: Current every day smoker Primary care physician referral: [facility] Psychiatry clearance: Cardiology clearance: Sleep study: Diet journal: VTE risk score: VTE risk level: Rehab needs at discharge:
== END ==
LOC: BARWHC3 10:28
PROVIDERS: ATTEND Surgery
DX: K44.9 Diaphragmatic hernia without obstruction or gangrene (principal); B96.81 Helicobacter pylori [H. pylori] as the cause of diseases classified elsewhere; F17.210 Nicotine dependence, cigarettes, uncomplicated; Z88.0 Allergy status to penicillin; Z88.1 Allergy status to other antibiotic agents; Z88.8 Allergy status to other drugs, medicaments and biological substances
CPT/HCPCS: 99211

== ENCOUNTER → 2024-11-21 | Outpatient (CLI) | payer MEDICARE ==
[2024-11-21 10:57] VITALS: BP 116/71; PULSE 57; TEMP 97.5; BMI 23.8
--- NOTE | 2024-11-21 11:51 | P.HPBAR ---
Bariatric H&P - History & Physicial H&P Date: 11/21/24 History & Physicial: Visit/CC: lap band follow up Patient initial contact: Initial weight: 59.562 kg Initial weight in pounds: 131.31 Height: 5 ft Initial BMI: 25.6 Last weight: Current weight: 55.338 kg Current weight in pounds: 122.00 Current BMI: 23.8 [place] body weight (based on NIH guidelines): Excess body weight loss: The patient is a 79 year-old F who presents for Bariatric Assessment. Patient presents today for Peritrate follow-up. She is doing well. She is lost another 5 pounds. She has had minimal gerd. Past Medical History Past Medical History: Dementia, GERD/Reflux, Hyperlipidemia, Hypertension, Osteoarthritis (OA), Pneumonia, Thyroid Disorder, Vascular Disorder Additional Past Medical History / Comment(s): Chronic abdominal pain, IBS/ colitis, gastritis, chronic low back and bilateral knee pain, recent L lower leg swelling at times, UTIs, bronchitis/recently approximately 2 weeks ago, past elevated LFTs, scarlet fever as a child. 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 incisional hernia repair with lap band replacement 04/19/24 Past Anesthesia/Blood Transfusion Reactions: No Reported Reaction Additional Past Anesthesia/Blood Transfusion Reaction / Comm: No blood transfusion to date Past Psychological History: Anxiety, Bipolar, Depression, Panic Disorder Additional Psychological History / Comment(s): OCD. Pt resides with a roomate. She has a cane but does not use it often. Smoking Status: Current every day smoker Past Alcohol Use History: None Reported Additional Past Alcohol Use History / Comment(s): smokes approx 5 cigarettes a day Past Drug Use History: None Reported Additional Drug Use History / Comment(s): 1/2 pack /day x 50 years (off and on) pt, still smoking - Past Family History Father Family Medical History: Cancer Additional Family Medical History / Comment(s): Prostate and bone cancer Mother Family Medical History: Dementia Surgical - Exam Vital Signs Temp Pulse BP 97.5 F L 57 L 116/71 11/21/24 10:53 11/21/24 10:53 11/21/24 10:53 - General well developed - Eyes PERRL - ENT normal pinna - Neck no masses - Cardiovascular Rhythm: regular - Abdomen Abdomen: soft, non tender Bariatric Assessment & Plan Plan: Patient is gerd is minimal and will be observed. She will follow-up in 3 months. No adjustment of her band was done. Bariatric Checklist Checklist: Plan: Checklist: EGD: 1. Hiatal hernia: 2. H. Pylori: HgbA1c: Vitamin D: Smoking: Current every day smoker Primary care physician referral: [facility] Psychiatry clearance: Cardiology clearance: Sleep study: Diet journal: VTE risk score: VTE risk level: Rehab needs at discharge:
== END ==
LOC: BARWHC3 10:35
PROVIDERS: ATTEND Surgery
DX: K21.9 Gastro-esophageal reflux disease without esophagitis (principal); F17.210 Nicotine dependence, cigarettes, uncomplicated; Z88.1 Allergy status to other antibiotic agents; Z88.0 Allergy status to penicillin; Z88.8 Allergy status to other drugs, medicaments and biological substances
CPT/HCPCS: 99211

== ENCOUNTER → 2025-02-20 | Outpatient (CLI) | payer MEDICARE ==
[2025-02-20 10:58] VITALS: BP 148/76; PULSE 76; RESP 16; BMI 23.0
[2025-02-20 11:27] VITALS: TEMP 98.6
--- NOTE | 2025-03-02 13:55 | P.HPBAR ---
Bariatric H&P - History & Physicial H&P Date: 02/20/25 History & Physicial: Visit/CC: Band F/U Patient initial contact: Initial weight: 59.562 kg Initial weight in pounds: 131.31 Height: 5 ft Initial BMI: 25.6 Last weight: Current weight: 53.524 kg Current weight in pounds: 118.00 Current BMI: 23.0 [place] body weight (based on NIH guidelines): Excess body weight loss: The patient is a 79 year-old F who presents for Bariatric Assessment. this is a 79-year-old female who presents today for bariatric follow-up. Patient recently had her Lap-Band adjusted. She is lost 4 pounds since her last adjustment. She has had no significant dysphagia. She has minimal GERD. Past Medical History Past Medical History: Dementia, GERD/Reflux, Hyperlipidemia, Hypertension, Osteoarthritis (OA), Pneumonia, Thyroid Disorder, Vascular Disorder Additional Past Medical History / Comment(s): Chronic abdominal pain, IBS/colitis, gastritis, chronic low back and bilateral knee pain, recent L lower leg swelling at times, UTIs, bronchitis/recently approximately 2 weeks ago, past elevated LFTs, scarlet fever as a child. 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 incisional hernia repair with lap band replacement 04/19/24 Past Anesthesia/Blood Transfusion Reactions: No Reported Reaction Additional Past Anesthesia/Blood Transfusion Reaction / Comm: No blood transfusion to date Past Psychological History: Anxiety, Bipolar, Depression, Panic Disorder Additional Psychological History / Comment(s): OCD. Pt resides with a roomate. She has a cane but does not use it often. Smoking Status: Current every day smoker Past Alcohol Use History: None Reported Additional Past Alcohol Use History / Comment(s): smokes approx 5 cigarettes a day Past Drug Use History: None Reported Additional Drug Use History / Comment(s): 1/2 pack /day x 50 years (off and on) pt, still smoking - Past Family History Father Family Medical History: Cancer Additional Family Medical History / Comment(s): Prostate and bone cancer Mother Family Medical History: Dementia Surgical - Exam Vital Signs Temp Pulse Resp BP 98.3 F 76 16 148/76 02/20/25 10:55 02/20/25 10:55 02/20/25 10:55 02/20/25 10:55 - General well developed, well nourished, no distress - Eyes PERRL - ENT normal pinna - Neck no masses - Respiratory normal expansion - Cardiovascular Rhythm: regular - Abdomen Abdomen: soft, non tender Bariatric Assessment & Plan Plan: Patient will be observed. Her GERD is minimal. She will follow-up in 12 weeks. Bariatric Checklist Checklist: Plan: Checklist: EGD: 1. Hiatal hernia: 2. H. Pylori: HgbA1c: Vitamin D: Smoking: Current every day smoker Primary care physician referral: [facility] Psychiatry clearance: Cardiology clearance: Sleep study: Diet journal: VTE risk score: VTE risk level: Rehab needs at discharge:
== END ==
LOC: BARWHC3 10:34
PROVIDERS: ATTEND Surgery
DX: E66.01 Morbid (severe) obesity due to excess calories (principal); F17.200 Nicotine dependence, unspecified, uncomplicated; Z68.23 Body mass index [BMI] 23.0-23.9, adult; Z88.0 Allergy status to penicillin; Z88.1 Allergy status to other antibiotic agents; Z88.8 Allergy status to other drugs, medicaments and biological substances
CPT/HCPCS: 99211